=== PATIENT | female | born 1945 | race Caucasian/White ===

== ENCOUNTER → 2017-03-15 | Outpatient (CLI) | payer OTHER ==
[~2017-03-15] MED LIST: AMIT25TA19 PO; AMT25 PO; ATV5 PO; CLID5CAP23 PO; CLON1TAB3 PO; CMD5 PO; COLE1TAB PO; ERGO50002 PO; FRRS300 PEG; FURO-85 PO; HYDR25TA4 PO; IMD2X PO; KLOR CON PO; LEVO100T84 PO; LEVO112T4 PO; LISI40TA PO; LORA-741 PO; LSX20 PO; OXYC1TAB3 PO; PANT40TA PO; POTA10CA28 PO; PRAM1TAB52 PO; PROM25TA PO; PROM25TA16 PO; TRIA0.1C55 TOP; WARF5TAB7 PO
--- NOTE | 2017-03-16 08:28 | MAMMOGRAPHY REPORT ---
BILATERAL DIGITAL SCREENING MAMMOGRAM WITH CAD: 03/15/2017 CLINICAL HISTORY: Routine screening. Patient has no complaints. TECHNIQUE: Bilateral CC and MLO views were obtained. Current study was also evaluated with a Comput er Aided Detection (CAD) system. COMPARISON: Comparison is made to exams dated: 03/11/2016 mammogram, 03/10/2015 mammogram, 03/08/2014 mammogram, 03/07/2013 mammogram, 03/06/2012 mammogram, and 03/03/2011 mammogram - [facility]. BREAST COMPOSITION: The tissue of both breasts is almost entirely fatty. FINDINGS: There are scattered benign-appearing calcifications in the breasts. No suspicious mass, a rchitectural distortion or cluster of suspicious microcalcifications is seen. IMPRESSION: ACR BI-RADS CATEGORY 1: NEGATIVE There is no mammographic evidence of malignancy. A 1 year screening mammogram is recommended. The p atient will receive written notification of the results. Approximately 10% of breast cancers are not detected with mammography. A negative mammographic repor t should not delay biopsy if a clinically suggestive mass is present. Faith Landry M.D. ay/:03/15/2017 16:01:55 Supervisor Travel Trailer: [place]en GUY(Erich)(Raquel), [facility] letter sent: Normal 1/2 BI-RADS Code: ACR BI-RADS Category 1: Negative
== END | disposition home or self-care (01) ==
LOC: C.MAMM 10:57
PROVIDERS: ATTEND Family Medicine
DX: Z12.31 Encounter for screening mammogram for malignant neoplasm of breast (principal)

== ENCOUNTER 2017-06-13 10:27 | Emergency (ER) | payer OTHER ==
[~2017-06-13] VITALS: Ht 152.4 cm; Wt 96.6 kg
[~2017-06-13 10:27] MED LIST changes: -AMT25 PO; -CMD5 PO; -FRRS300 PEG; -FURO-85 PO; -LEVO112T4 PO; -LORA-741 PO; -LSX20 PO; -POTA10CA28 PO; -PRAM1TAB52 PO; -PROM25TA16 PO
[2017-06-13 10:32] VITALS: TEMP 36.4; Ht 152.4 cm; Wt 96.6 kg
[2017-06-13] MEDS ORDERED: PRAM1TAB52 PO (11:02)
[2017-06-13] MEDS ORDERED: LORA-741 PO (11:02)
[2017-06-13] MEDS ORDERED: AMT25 PO (11:02)
[2017-06-13] MEDS ORDERED: LSX20 PO (11:02)
[2017-06-13] MEDS ORDERED: LEVO112T4 PO (11:02)
[2017-06-13] MEDS ORDERED: FURO-85 PO (11:02)
[2017-06-13] MEDS ORDERED: PROM25TA16 PO (11:02)
[2017-06-13] MEDS ORDERED: POTA10CA28 PO (11:02)
[2017-06-13 11:08] LABS: ISTAT CREATININE 1.2 mg/dl (0.6-1.3); ISTAT HEMOGLOBIN 8.5 g/dl (12.0-16.0); ISTAT IONIZED CALCIUM 1.25 mmol/l (1.12-1.32)
[2017-06-13 11:32] LABS: CALCIUM 8.6 mg/dl (8.5-10.1); CREATININE 1.3 mg/dl (0.60-1.20); POTASSIUM 5.2 mmol/L (3.5-5.1)
[2017-06-13 11:35] LABS: ALB/GLOB RATIO 0.9 (0.9-2)
[2017-06-13 11:46] LABS: HEMATOCRIT 25.5 % (37-47); MEAN CELL VOLUME 70.2 fL (80-100); MEAN CORPUSCULAR HEMOGLOBIN 20.7 pg (25-34); MEAN CORPUSCULAR HGB CONC 29.4 g/dl (32-36); MEAN PLATELET VOLUME 10.2 fL (7.4-10.4); PLATELET COUNT 265 K/uL (130-400); RED BLOOD COUNT 3.63 M/uL (4.2-5.4)
[2017-06-13 11:48] LABS: ANISOCYTOSIS PRESENT; COMPLETE YES; EOS % 1.5 %; HYPOCHROMIA PRESENT; LYMPH % 18.3 %; LYMPH ABS # 0.99 K/uL (1.2-3.4); MONO % 7.8 %; NEUT % 72.4 %
[2017-06-13] MEDS ORDERED: CMD5 PO (12:14)
[2017-06-13] MEDS ORDERED: FRRS300 PEG (13:39)
[2017-06-13 13:49] VITALS: BP 116/84; PULSE 77; O2SAT 96
--- NOTE | 2017-06-13 14:44 | EMERGENCY ROOM VISIT NOTE ---
History Report prepared by James: Felicitas Huerta Under the Supervision of: Dr. Junior Lewis D.O. First contact with patient: 11:22 Chief Complaint: ABNORMAL LABS Stated Complaint: BLOOD TRANSFUSION History of Present Illness The patient is a 72 year old female who presents to the Emergency Room for further evaluation of abnormal lab results. The patient had blood drawn 5 days ago and her hemoglobin was found to be 7.3. The patient states that her PCP, Dr. Puckett, called her and told her to come into the ED for a blood transfusion. The patient has not noticed any bleeding and she denies being anemic chronically. The patient's daughter states that the patient has been on iron supplements in the past and she thinks that she might need them again. She is also experiencing headaches, shortness of breath, and fatigue. The patient states that she saw her PCP for these symptoms, specifically the headache because it has been ongoing for almost 3 weeks now. Source of History: patient, family (daughter) Onset: 5 days ago Position: other (global) Quality: other (abnormal lab results) Associated Symptoms: + headache, + SOB, + fatigue Review of Systems See HPI for pertinent positives & negatives. A total of 10 systems reviewed and were otherwise negative. Past Medical & Surgical Medical Problems: (1) CKD (chronic kidney disease), stage III (2) Depression (3) HTN (hypertension) (4) Hypothyroidism (5) IBS (irritable bowel syndrome) (6) Pulmonary embolism (7) Rotator cuff tear arthropathy of right shoulder Surgical Problems: (1) History of bilateral knee replacement (2) History of hysterectomy (3) History of spinal fusion (4) S/P cardiac cath (5) S/P cholecystectomy (6) S/P left knee arthroscopy Family History Patient reports no known family medical history. Social History Smoking Status: Never Smoker Marital Status: Occupation Status: employed Current/Historical Medications Scheduled Amitriptyline HCl (Amitriptyline HCl), 25 MG PO HS Chlordiazepoxide/Clidinium (Librax 5MG/2.5MG), 1 EA PO QID Clonazepam (Klonopin), 1 MG PO HS Colestipol Hcl (Colestid), 2 GM PO BID Ergocalciferol (Drisdol), 1 CAP PO WK Ferrous Sulfate (Ferrous Sulfate), 1 TAB PEG TID Furosemide (Furosemide), 40 MG PO QAM Furosemide (Lasix), 20 MG PO DAILY Levothyroxine Sodium (Levothyroxine Sodium), 112 MCG PO DAILY Lisinopril (Zestril), 40 MG PO QAM Loperamide Hcl (Imodium), 2 MG PO PRN Oxycodone Ir (Roxicodone Ir), 5 MG PO Q4H Pantoprazole (Protonix), 40 MG PO BID Potassium Chloride (Micro-K Ext Rel), 10 MEQ PO BID Pramipexole Dihydrochloride (Mirapex), 0.25 MG PO HS Warfarin Sod (Jantoven), 5 MG PO 3XWK Warfarin Sod (Coumadin), 2.5 MG PO 4XWK Scheduled PRN Lorazepam (Ativan), 0.5 MG PO TID PRN for Anxiety Promethazine HCl (Promethazine HCl), 25 MG PO Q4H PRN for Nausea Allergies Coded Allergies: No Known Allergies (Verified , 04/02/16) Physical Exam Vital Signs Date Time Temp Pulse Resp B/P (MAP) Pulse Ox O2 Delivery O2 Flow Rate FiO2 06/13/17 13:49 77 18 116/84 96 06/13/17 12:11 74 18 113/76 96 Room Air 06/13/17 11:01 82 06/13/17 10:32 36.4 86 18 138/75 91 Room Air Physical Exam CONSTITUTIONAL/VITAL SIGNS: Reviewed / noted above. GENERAL: Non-toxic in appearance. INTEGUMENTARY: Warm, dry, and slightly pale in appearance. HEAD: Normocephalic. EYES: without scleral icterus or trauma. ENT/OROPHARYNX: clear and moist. LYMPHADENOPATHY/NECK: Is supple without lymphadenopathy or meningismus. RESPIRATORY: Lungs clear and equal. CARDIOVASCULAR: Regular rate and rhythm. GI/ABDOMEN: Soft and nontender. No organomegaly or pulsatile mass. No rebound or guarding. Normal bowel sounds. RECTAL: Light brown stool. GUAIAC negative EXTREMITIES: Warm and well perfused. BACK: No CVA tenderness. NEUROLOGICAL: Intact without focal deficits. PSYCHIATRIC: normal affect. MUSCULOSKELETAL: Normally developed with good muscle tone. Medical Decision & Procedures Laboratory Results 06/13/17 10:50 Red Blood Count 3.63, Mean Corpuscular Volume 70.2, Mean Corpuscular Hemoglobin 20.7, Mean Corpuscular Hemoglobin Concent 29.4, Mean Platelet Volume 10.2, Neutrophils (%) (Auto) 72.4, Lymphocytes (%) (Auto) 18.3, Monocytes (%) (Auto) 7.8, Eosinophils (%) (Auto) 1.5, Basophils (%) (Auto) 0.0, Neutrophils # (Auto) 3.91, Lymphocytes # (Auto) 0.99, Monocytes # (Auto) 0.42, Eosinophils # (Auto) 0.08, Basophils # (Auto) 0.00 06/13/17 10:50 Test 06/13/17 10:50 06/13/17 10:57 06/13/17 11:05 White Blood Count 5.40 K/uL (4.8-10.8) Red Blood Count 3.63 M/uL (4.2-5.4) Hemoglobin 7.5 g/dL (12.0-16.0) Hematocrit 25.5 % (37-47) Mean Corpuscular Volume 70.2 fL (80-100) Mean Corpuscular Hemoglobin 20.7 pg (25-34) Mean Corpuscular Hemoglobin Concent 29.4 g/dl (32-36) Platelet Count 265 K/uL (130-400) Mean Platelet Volume 10.2 fL (7.4-10.4) Neutrophils (%) (Auto) 72.4 % Lymphocytes (%) (Auto) 18.3 % Monocytes (%) (Auto) 7.8 % Eosinophils (%) (Auto) 1.5 % Basophils (%) (Auto) 0.0 % Neutrophils # (Auto) 3.91 K/uL (1.4-6.5) Lymphocytes # (Auto) 0.99 K/uL (1.2-3.4) Monocytes # (Auto) 0.42 K/uL (0.11-0.59) Eosinophils # (Auto) 0.08 K/uL (0-0.5) Basophils # (Auto) 0.00 K/uL (0-0.2) RDW Standard Deviation 46.8 fL (36.4-46.3) RDW Coefficient of Variation 18.0 % (11.5-14.5) Immature Granulocyte % (Auto) 0.0 % Immature Granulocyte # (Auto) 0.00 K/uL (0.00-0.02) Hypochromasia PRESENT Anisocytosis PRESENT Est Creatinine Clear Calc Drug Dose 39.5 ml/min Estimated GFR () 46.8 Estimated GFR (Non- 40.4 BUN/Creatinine Ratio 30.0 (10-20) Calcium Level 8.6 mg/dl (8.5-10.1) Total Bilirubin 0.2 mg/dl (0.2-1) Aspartate Amino Transf (AST/SGOT) 19 U/L (15-37) Alanine Aminotransferase (ALT/SGPT) 15 U/L (12-78) Alkaline Phosphatase 241 U/L (45-117) Total Protein 7.2 gm/dl (6.4-8.2) Albumin 3.4 gm/dl (3.4-5.0) Globulin 3.8 gm/dl (2.5-4.0) Albumin/Globulin Ratio 0.9 (0.9-2) Lipase 359 U/L (73-393) Bedside Hemoglobin 8.5 g/dl (12.0-16.0) Bedside Hematocrit 25 % (37-47) Bedside Sodium 139 mEq/L (135-144) Bedside Potassium 5.1 mEq/L (3.3-5.0) Bedside Chloride 107 mEq/L (101-112) Bedside Total CO2 22 mEq/l (24-31) Anion Gap 16.0 mmol/L (16-25) Bedside Blood Urea Nitrogen 39 mg/dl (7-18) Bedside Creatinine 1.2 mg/dl (0.6-1.3) Bedside Glucose (other) 98 mg/dl (70-99) Bedside Ionized Calcium (Silvano) 1.25 mmol/l (1.12-1.32) Laboratory results as stated above per my review. ED Course 1137: Previous medical records were reviewed. The patient was evaluated in room C3. A complete history and physical examination was performed. 1200: Discussed the patient's case with Dr. Lua - [facility], she is covering for Dr. Puckett. She informed me that the patient was told to come in last week to get a blood transfusion but she waited until today. She agrees with the treatment plan. 1339: On reevaluation, the patient is doing well. I discussed the results and findings with the patient. She verbalized agreement of the treatment plan. She was discharged home. Medical Decision Differentials include: Acute coronary syndrome, myocardial infarction, CVA, TIA , anemia, infection, pneumonia, UTI, pyelonephritis, poor nutrition, dehydration , electrolyte disturbance, and hypoglycemia. This is a 72-year-old female who presents to the ED with a chief complaint of anemia. The patient had some outpatient blood work about 1-1/2 weeks ago that revealed anemia with a hemoglobin of 7.4. The patient was contacted today and decided to come to the ED for evaluation. The patient went there for a headache and needed some routine blood work. The patient denies any concerns for blood loss anywhere. She has not had any black or tarry stools. Her vital signs here are stable. Her physical exam was unremarkable. She looks a little pale. Stool is light brown and guaiac negative. The patient's hemoglobin today is 8.5. Her potassium was 5.2 and her BUN 39 and creatinine 1.3. The patient was told results the test. I did speak with Dr. Bravo, she is on- call for Dr. Puckett. The patient will be started on by mouth iron. She was felt to be stable for discharge and outpatient follow-up. Medication Reconcilliation Current Medication List: was personally reviewed by me Blood Pressure Screening Patient's blood pressure: Normal blood pressure Consults Time Called: 1143 Consulting Physician: Dr. Lua - Family Medicine Returned Call: 1200 Discussed the patient's case with Dr. Lua - [facility], she is covering for Dr. Puckett. She informed me that the patient was told to come in last week to get a blood transfusion but she waited until today. She agrees with the treatment plan. Impression Primary Impression: Anemia Additional Impression: Dehydration Scribe Attestation The scribe's documentation has been prepared under my direction and personally reviewed by me in its entirety. I confirm that the note above accurately reflects all work, treatment, procedures, and medical decision making performed by me. Departure Information Dispostion Home / Self-Care Prescriptions Ferrous Sulfate (Ferrous Sulfate) 325 Mg Tab 1 TAB PEG TID for 30 Days, #90 TABS Prov: Junior Lewis D.O. 06/13/17 Referrals Tristan Conde M.D. (PCP) Forms HOME CARE DOCUMENTATION FORM, IMPORTANT VISIT INFORMATION, WORK / SCHOOL INSTRUCTIONS Patient Instructions ED Anemia Iron Deficiency, [facility] Additional Instructions Iron supplement as prescribed. This may cause constipation. This will turn your stool black. Follow-up with your doctor for further care and evaluation in 1-2 days. Return to the emergency department for worsening or new symptoms or any concerns. You have been examined and treated today on an emergency basis only. This is not a substitute for, or an effort to provide, complete comprehensive medical care. It is impossible to recognize and treat all injuries or illnesses in a single emergency department visit. It is therefore important that you follow up closely with your doctor. Call as soon as possible for an appointment. Problem Qualifiers
== END 2017-06-13 13:50 | disposition home or self-care (01) ==
LOC: C.EDB 10:28 → C.EDC 13:50
DX: D64.9 Anemia, unspecified (principal); E86.0 Dehydration; N18.3 Chronic kidney disease, stage 3 (moderate); F32.9 Major depressive disorder, single episode, unspecified; I10 Essential (primary) hypertension; K58.9 Irritable bowel syndrome, unspecified; E03.9 Hypothyroidism, unspecified; I26.99 Other pulmonary embolism without acute cor pulmonale; Z79.01 Long term (current) use of anticoagulants

== ENCOUNTER 2018-01-31 11:27 | Observation (INO) | payer OTHER ==
[2018-01-09 14:55] VITALS: BMI 43.0
--- NOTE | 2018-01-09 15:06 | PAT Medication Instructions ---
Service Date Jan 09, 2018. Current Home Medication List Amitriptyline HCl (Amitriptyline HCl), 25 MG PO HS Amlodipine (Norvasc), 10 MG PO QAM Clonazepam (Klonopin), 1 MG PO HS Colestipol Hcl (Colestid), 2 GM PO BID Ergocalciferol (Drisdol), 1 CAP PO WK Ferrous Sulfate (Kp Ferrous Sulfate), 1 TAB PO BID Furosemide (Furosemide), 40 MG PO QAM Furosemide (Lasix), 20 MG PO daily 1615 Levothyroxine Sodium (Levothyroxine Sodium), 112 MCG PO QAM Lisinopril (Zestril), 40 MG PO QAM Loperamide Hcl (Imodium), 2 MG PO PRN Lorazepam (Ativan), 0.5 MG PO TID PRN for Anxiety Oxycodone Ir (Roxicodone Ir), 5 MG PO Q4H Pantoprazole (Protonix), 40 MG PO BID Potassium Chloride (Micro-K Ext Rel), 10 MEQ PO BID Pramipexole Dihydrochloride (Mirapex), 0.25 MG PO HS Promethazine HCl (Promethazine HCl), 25 MG PO Q4H PRN for Nausea Warfarin Sod (Coumadin), 5 MG PO UD Medication Instructions For Your Scheduled Surgery - Check with surgeon and prescribing physician for instructions: Warfarin Sod (Coumadin), 5 MG PO UD - Hold the following medications the night prior to surgery: Pramipexole Dihydrochloride (Mirapex), 0.25 MG PO HS - Hold the following medications the morning of surgery: Colestipol Hcl (Colestid), 2 GM PO BID Ergocalciferol (Drisdol), 1 CAP PO WK Ferrous Sulfate (Kp Ferrous Sulfate), 1 TAB PO BID Furosemide (Furosemide), 40 MG PO QAM Lisinopril (Zestril), 40 MG PO QAM Loperamide Hcl (Imodium), 2 MG PO PRN Potassium Chloride (Micro-K Ext Rel), 10 MEQ PO BID - Take the following medications the morning of surgery with a sip of water: Promethazine HCl (Promethazine HCl), 25 MG PO Q4H PRN for Nausea (if needed) Pantoprazole (Protonix), 40 MG PO BID Lorazepam (Ativan), 0.5 MG PO TID PRN for Anxiety (if needed) Oxycodone Ir (Roxicodone Ir), 5 MG PO Q4H (okay to take up to 4 hours prior to surgery if needed) Levothyroxine Sodium (Levothyroxine Sodium), 112 MCG PO QAM Amlodipine (Norvasc), 10 MG PO QAM - Take the following medications as scheduled the night before surgery: Promethazine HCl (Promethazine HCl), 25 MG PO Q4H PRN for Nausea (if needed) Potassium Chloride (Micro-K Ext Rel), 10 MEQ PO BID Pantoprazole (Protonix), 40 MG PO BID Lorazepam (Ativan), 0.5 MG PO TID PRN for Anxiety (if needed) Oxycodone Ir (Roxicodone Ir), 5 MG PO Q4H (if needed) Loperamide Hcl (Imodium), 2 MG PO PRN (if needed) Furosemide (Lasix), 20 MG PO daily 1615 Ferrous Sulfate (Kp Ferrous Sulfate), 1 TAB PO BID Colestipol Hcl (Colestid), 2 GM PO BID Clonazepam (Klonopin), 1 MG PO HS Amitriptyline HCl (Amitriptyline HCl), 25 MG PO HS If you have any questions please call us at [phone] or [phone] or [phone]
--- NOTE | 2018-01-09 16:29 | DIAGNOSTIC IMAGING REPORT ---
CHEST 2 VIEWS ROUTINE CLINICAL HISTORY: Preoperative chest COMPARISON STUDY: 03/25/2016 FINDINGS: The cardiac and mediastinal contours are normal. There is no evidence of focal pulmonary consolidation. There is no evidence of failure. No pleural effusions are visualized.[ There are postsurgical changes of a right shoulder arthroplasty. There are postsurgical changes present within the lumbar spine. There are lower thoracic compression deformities with a secondary gibbus deformity. IMPRESSION: No active disease in the chest. Electronically signed by: Slim Rodrigues M.D. 01/09/2018 4:28 PM Dictated Date/Time: 01/09/2018 4:27 PM
[2018-01-09 16:40] LABS: INR 1.8 (0.9-1.1); PTT PATIENT 30.5 SECONDS (21.0-31.0)
--- NOTE | 2018-01-30 22:09 | HISTORY & PHYSICAL EXAMINATION ---
DATE OF ADMISSION: 01/31/2018 CHIEF COMPLAINT: Rotator cuff arthropathy of the left shoulder. HISTORY OF PRESENT ILLNESS: Asuncion is a very pleasant 72-year-old female who I did a reverse right shoulder arthroplasty 2 years ago. She has done extremely well with that. Unfortunately, she is having similar symptoms of her left shoulder. X-rays and clinical examination have been diagnostic for rotator cuff arthropathy of left shoulder. After failing extensive conservative treatment, she has elected to proceed with a reverse left shoulder arthroplasty. PAST MEDICAL HISTORY: Significant for hypertension, pulmonary embolism, sleep apnea for which she is on a CPAP machine, anxiety, osteoarthritis, GERD. MEDICATIONS: Include oxycodone, vitamin D, Phenergan, Protonix, Ativan, Coumadin, Klonopin, Librax, Klor-Con, amitriptyline, amlodipine, colestipol, hydrochlorothiazide, Synthroid, lisinopril, Imodium. ALLERGIES: None. PAST SURGICAL HISTORY: Significant for a right reverse shoulder arthroplasty done in March of 2016. SOCIAL HISTORY: She denies any tobacco, alcohol or IV drug use. She remains active. FAMILY HISTORY: She denies. REVIEW OF SYSTEMS: She complains of left shoulder pain and weakness. All other pertinent review of systems are negative. PHYSICAL EXAMINATION: GENERAL: She is awake, alert and orient x3. She is in no apparent distress. She is very pleasant. HEENT: Pupils equal, round, reactive to light. Extraocular motion intact. Oral mucosa is pink, moist. HEART: Regular rate per radial pulse. LUNGS: Emily symmetrically bilaterally with no audible breath sounds. ABDOMEN: Soft, nontender, nondistended. MUSCULOSKELETAL: On physical examination of the left shoulder. She has 130 degrees forward elevation, 120 degrees of abduction. She does have crepitus with range of motion. She has 3/5 muscle strength with full can testing mostly secondary to pain. She has 4/5 muscle strength with external rotation. Negative bear hug and belly press test. A lot of pain over the glenohumeral joint line. IMAGING DATA: X-rays of the left shoulder do show advanced osteoarthritis. There was a little bit of superior migration of the humeral head in the glenoid. IMPRESSION: Rotator cuff arthropathy of the left shoulder. PLAN: We will proceed with a reverse left total shoulder arthroplasty. Postoperatively, she will be placed in an arm sling and kept overnight for postoperative medical management.
[~2018-01-31] VITALS: Ht 152.4 cm; Wt 101.2 kg
[2018-01-31] VITALS (8 sets, daily range): BP systolic 94–140; BP diastolic 61–74; PULSE 79–98; TEMP 36.4–37.3; O2SAT 91–99; Ht 152.4 cm; Wt 101.2 kg
[2018-01-31] MEDS: LACTATED RINGER'S 1000ML IV SCH ×2 (06:00→18:34)
[2018-01-31] MEDS: TRANEXAMIC ACID INJ 1,000 MG x 2 Bags IV SCH ×4 (06:30→14:16)
[~2018-01-31 11:27] MED LIST changes: +ACETAMINOPHEN 500 MG TAB PO SCH; -AMIT25TA19 PO; +AMLO-114 PO; +AMT25 PO; -ATV5 PO; +BUPIVACAINE 0.5 % 5 MG/1 ML PF 10ML VIAL ONE; +CEFAZOLIN 2000MG IV PUSH 15 ML IV SCH; -CLID5CAP23 PO; +CMD5 PO; +EpINEphrine INJ 1MG/ML AMP 1 MG/ML AMP ONE; +FAMOTIDINE 20 MG TAB PO SCH; +FERR1TAB13 PO; +FURO-85 PO; +GABAPENTIN 300 MG CAP PO SCH; -HYDR25TA4 PO; -KLOR CON PO; -LEVO100T84 PO; +LEVO112T4 PO; +LORA-741 PO; +LSX20 PO; +POTA10CA28 PO; +PRAM1TAB52 PO; -PROM25TA PO; +PROM25TA16 PO; +ROPIVACAINE 0.5% 5 MG/ML 30 ML VIAL ONE; +ROPIVACAINE 5MG/ML 30 ML 150 MG, BUPIVACAINE 0.5% MPF INJ 30 ML, EpINEphrine HCL INJ 0.... INFIL SCH; -TRIA0.1C55 TOP; -WARF5TAB7 PO
--- NOTE | 2018-01-31 11:29 | History & Physical Bridge Note ---
H&P Re-Evaluation Bridge Note: I have examined the patient, reviewed the History & Physical and in the interval since the performance of the History & Physical I have noted the following changes of clinical significance: No changes noted
[2018-01-31] MEDS ORDERED: CYAN100073 (12:19)
[2018-01-31] MEDS ORDERED: CHOLCAP2 PO (12:20)
[2018-01-31 12:21] LABS: INR 0.9 (0.9-1.1); PTT PATIENT 23.8 SECONDS (21.0-31.0)
[2018-01-31] MEDS: LACTATED RINGER'S 1000ML 1,000 ML IV SCH ×3 (12:56→18:34)
[2018-01-31] MEDS ORDERED: DEXAMETHASONE SOD INJ 4 MG/ML VIAL ONE (13:37)
[2018-01-31] MEDS ORDERED: FENTANYL CITRATE INJ 50 MCG/1 ML 2 ML VIAL ONE ×2 (13:37→15:18)
[2018-01-31] MEDS ORDERED: PROPOFOL IV EMULSION 10 MG/ML 20 ML VIAL IV ONE (13:37)
[2018-01-31] MEDS ORDERED: MIDAZOLAM HCL 1 MG/ML 2ML VIAL ONE ×2 (13:37)
[2018-01-31] MEDS ORDERED: ONDANSETRON INJ 2 MG/ML 2 ML VIAL ONE (13:37)
[2018-01-31] MEDS ORDERED: LIDOCAINE HCL 2% 2 ML VIAL (20MG/ML) ONE (13:37)
[2018-01-31] MEDS ORDERED: BACITRACIN 50000 UNIT VIAL ONE (14:29)
[2018-01-31] MEDS ORDERED: ORTHO JOINT ANESTHETIC ONE (14:29)
[2018-01-31] MEDS ORDERED: ESMOLOL HCL 10 MG/ML 10 ML VIAL ONE (15:06)
--- NOTE | 2018-01-31 16:08 | [facility] Post Operative Brief Note ---
Immediate Operative Summary Operative Date Jan 31, 2018. Pre-Operative Diagnosis Rotator cuff arthropathy of the left shoulder Post-Operative Diagnosis Rotator cuff arthropathy of the left shoulder Procedure(s) Performed Left Reverse Total Shoulder Surgeon Dr. Kelly Crusher [employer] Surgeon(s) Danilo Floyd PA-C Estimated Blood Loss 200 ML Findings Consistent with Post-Op Diagnosis Specimens a. Left Femoral Head Anesthesia Type General Regional Complication(s) none Disposition Disposition: Recovery Room / PACU
[2018-01-31] MEDS ORDERED: PROMETHAZINE HCL 25 MG TAB PO PRN (16:15)
[2018-01-31] MEDS ORDERED: SOD PHOSPHATE/SOD BIPHOSPHATE ENEMA 132 ML BTL PR PRN (16:15)
[2018-01-31] MEDS ORDERED: METOCLOPRAMIDE HCL INJ 5 MG/ML 2 ML VIAL IV PRN (16:15)
[2018-01-31] MEDS ORDERED: LORAZEPAM 0.5 MG TAB PO PRN (16:15)
[2018-01-31] MEDS ORDERED: NALOXONE HCL 0.4 MG/1 ML VIAL/CARP IV PRN (16:15)
[2018-01-31] MEDS ORDERED: MoRPHine SULFATE 2 MG/ML CARP IV PRN (16:15)
[2018-01-31] MEDS ORDERED: MAGNESIUM HYDROXIDE SUSP 30 ML UDC PO PRN (16:15)
[2018-01-31] MEDS ORDERED: ONDANSETRON INJ 2 MG/ML 2 ML VIAL IV PRN (16:15)
[2018-01-31] MEDS ORDERED: BISACODYL 10 MG SUPP PR PRN (16:15)
--- NOTE | 2018-01-31 16:31 | OPERATIVE REPORT ---
DATE OF OPERATION: 01/31/2018 PREOPERATIVE DIAGNOSIS: Rotator cuff arthropathy of the left shoulder. POSTOPERATIVE DIAGNOSIS: Same. PROCEDURE: Left reverse total shoulder arthroplasty. SURGEON: Dr. Bob Kelly. SUPERVISOR GROUNDS: Danilo Taylor PA-C, whose assistance was necessary for retraction and closure. ANESTHESIA: General with a left interscalene nerve block. COMPLICATIONS: None. CONDITION: Stable to PACU. IMPLANTS USED: Biomet comprehensive reverse left shoulder arthroplasty system with a size 25 mm mini baseplate, a 36 mm standard eccentric glenosphere, a single 30 mm central screw, 2 peripheral locking screws, a size 14 mm mini pressfit stem and a standard humeral tray and bearing. INDICATIONS: Asuncion is a pleasant 72-year-old female with a history of rotator cuff repair in the past. Unfortunately, she has had constant pain since. She has gone on to develop advanced osteoarthritis of the shoulder. She has limited range of motion of her shoulder as well. After failing conservative treatment, she elected to undergo reverse shoulder arthroplasty. DESCRIPTION OF PROCEDURE: On 01/31/2018, she arrived at [facility] for the above procedure. She was seen in the preoperative holding and the operative extremity was identified and signed. She was given a preoperative antibiotic and a left interscalene nerve block. She was taken back to the operating room, laid on the table in supine position and put under general anesthesia. She then put into the beachchair position. The left shoulder was prepped and draped in sterile fashion. Time-out was done. The patient's operative extremity was properly identified. A deltopectoral approach was used. Dissection was taken down through the fascia and the anterior shoulder was exposed. The long head of the biceps tendon was previously tenotomized. The rotator interval was opened up and the subscapularis was tenotomized off the lesser tuberosity with a centimeter of cuff tissue remaining. There was a tear of the entire supraspinatus. The proximal humerus was exposed. Sequential reaming up to a size 14 reamer was done. Off that reamer, a proximal humeral resection guide was placed and the proximal humerus was resected at 135 degrees of inclination and 20 degrees of retroversion. The head was removed and the glenoid was exposed. Time was spent doing a complete circumferential capsular and labral release. A guide pin was placed in the more inferior portion of the glenoid angled at 10 degrees. The 25 mm mini baseplate was then drilled and the final baseplate was impacted into place. A 30 mm central screw was placed followed by an inferior and superior locking screw. A 36 mm standard eccentric glenosphere was then impacted into place. The surrounding soft tissues were injected with 100 mL of an orthopedic pain control cocktail. The proximal humerus was once again exposed. Sequential broaching up to a size 14 broach was done. Off that broach, a standard humeral tray was trialed. The shoulder was reduced, brought through a full range of motion and felt to be stable. The trials were removed. The final size 14 mm mini stem was then impacted into place. The humeral bearing was snapped onto the humeral tray and the ring lock mechanism was engaged. The humeral tray was impacted on the humeral stem and the shoulder was reduced. I brought the shoulder through a full range of motion and felt to be stable. The wound was then irrigated with 3 liters of normal saline solution with bacitracin. The subscapularis was then tenodesed back to the lesser tuberosity with transosseous FiberWire sutures and [id number] sutures. The axillary nerve was palpated. A drain was placed. Skin was closed with 2-0 Vicryl, 3-0 V-Loc suture and jeniffer. She was placed in a soft dressing and a regular arm sling. She was then extubated, transferred to a [facility] and taken to the postanesthesia care unit in stable condition. She tolerated the procedure well. I attest to the content of the Intraoperative Record and any orders documented therein. Any exception s are noted below.
[2018-01-31] MEDS ORDERED: IV FLUIDS COMPLETED PRN (16:45)
--- NOTE | 2018-01-31 17:31 | Anesthesiology Progress Note ---
Anesthesia Post Op Note Date & Time Jan 31, 2018 at 17:30 Vital Signs Pain Intensity: 0 Vital Signs Past 12 Hours Date Time Temp Pulse Resp B/P (MAP) Pulse Ox O2 Delivery O2 Flow Rate FiO2 01/31/18 17:15 36.2 85 18 121/79 100 Nasal Cannula 2 01/31/18 17:05 84 22 115/79 100 Nasal Cannula 2 01/31/18 16:55 88 20 135/84 100 Nasal Cannula 2 01/31/18 16:45 86 15 140/100 100 Oxymask 10 01/31/18 16:35 88 13 149/100 100 Oxymask 10 01/31/18 16:29 36.4 86 16 146/88 98 Oxymask 10 01/31/18 12:21 36.7 98 20 140/74 99 Room Air Notes Mental Status: alert / awake / arousable, participated in evaluation Pt Amnestic to Procedure: Yes Nausea / Vomiting: adequately controlled Pain: adequately controlled Airway Patency, RR, SpO2: stable & adequate BP & HR: stable & adequate Hydration State: stable & adequate Anesthetic Complications: no major complications apparent
--- NOTE | 2018-01-31 17:40 | DIAGNOSTIC IMAGING REPORT ---
L SHOULDER MIN 2 VIEWS ROUTINE CLINICAL HISTORY: Post shoulder surgery COMPARISON: 12/19/2017 DISCUSSION: There are postsurgical changes of a reversed total left shoulder arthroplasty. There are overlying skin jeniffer. There is an overlying surgical drain. Air within the soft tissues is felt to be postsurgical. There is no dislocation. There are equivocal airspace opacities at the left lung base. IMPRESSION: Postsurgical changes of a reverse total left shoulder arthroplasty. No evidence of dislocation Electronically signed by: Slim Rodrigues M.D. 01/31/2018 5:39 PM Dictated Date/Time: 01/31/2018 5:38 PM
[2018-01-31] MEDS: POTASSIUM CHLORIDE INJ 10 MEQ in SODIUM CHLORIDE 0.9% 1000ML 1,000 ML IV SCH (19:45)
[2018-01-31] MEDS ORDERED: LOPERAMIDE HCL 2 MG CAP PO PRN (19:45)
[2018-01-31] MEDS: OXYCODONE HCL IR 5 MG TAB (IMMEDIATE RELEASE) PO PRN (19:46)
[2018-01-31] MEDS: DOCUSATE SODIUM 100 MG CAP PO SCH (20:30)
[2018-01-31] MEDS: WARFARIN SOD 5 MG TAB PO SCH (20:36)
[2018-01-31] MEDS: POTASSIUM CHLORIDE 10 MEQ TABCR PO SCH (20:36)
[2018-01-31] MEDS: KETOROLAC TROMETHAMINE 15 MG/ML VIAL IV. SCH (20:36)
[2018-01-31] MEDS: PANTOprazole SOD 40 MG TAB PO SCH (20:37)
[2018-01-31] MEDS ORDERED: SENNA 8.6 MG TAB PO SCH (21:00)
[2018-01-31] MEDS ORDERED: AMITRIPTYLINE HCL 25 MG TAB PO SCH (21:00)
[2018-01-31] MEDS ORDERED: CLONAZEPAM 1 MG TAB PO SCH (21:00)
[2018-01-31] MEDS ORDERED: PRAMIPEXOLE DIHYDROCHLORIDE 0.25MG TAB PO SCH (21:00)
[2018-01-31] MEDS: COLESTIPOL HCL 1 GM TAB PO SCH (22:15)
[2018-01-31] MEDS: CEFAZOLIN IV 2,000 MG in SYRINGE 0 ML IV SCH (22:17)
[2018-01-31] MEDS: ACETAMINOPHEN IV 1,000 MG in EMPTY BAG 0 ML IV SCH (22:19)
[2018-02-01] MEDS: KETOROLAC TROMETHAMINE 15 MG/ML VIAL IV. SCH ×3 (01:36→11:17)
[2018-02-01 04:05] VITALS: BP 104/65; PULSE 81; TEMP 36.5; O2SAT 92
[2018-02-01] MEDS: ACETAMINOPHEN IV 1,000 MG in EMPTY BAG 0 ML IV SCH ×2 (05:33→13:25)
[2018-02-01] MEDS: CEFAZOLIN IV 2,000 MG in SYRINGE 0 ML IV SCH (05:33)
[2018-02-01] MEDS ORDERED: LEVOTHYROXINE 112 MCG TAB PO SCH (06:00)
[2018-02-01] MEDS: POTASSIUM CHLORIDE INJ 10 MEQ in SODIUM CHLORIDE 0.9% 1000ML 1,000 ML IV SCH (06:32)
[2018-02-01] MEDS ORDERED: OXYC1TAB3 PO (07:05)
--- NOTE | 2018-02-01 07:07 | Discharge Instructions ---
Discharge Instructions Date of Service Feb 01, 2018. Admission Reason for Admission: Left Shoulder Rotator Cuff Tear, Degenerative Join Discharge Discharge Diagnosis / Problem: Left Reverse Total Shoulder Discharge Goals Goal(s): Decrease discomfort, Improve function Activity Recommendations Activity Limitations: as noted below . Instructions / Follow-Up Instructions / Follow-Up Activity and Therapy Recommendations: * Wear your sling for 3 weeks, unless otherwise instructed. You may remove your sling to shower and to dress, but otherwise, you should be in your sling at all times, including while sleeping * The shoulder replacement is very stable and you can use your hand while in the sling * Physical Therapy should start about 3-5 days from your day of surgery. Therapy will last about 8-12 weeks * You were shown a series of exercises in the hospital. Do these exercises daily including the exercises you were shown in physical therapy. Medications: * Narcotic You will likely be sent home from the hospital with a prescription for the narcotic pain medication that worked best throughout your stay. * Other medications may be prescribed for specific circumstances. If you have any questions, please call the office at . * Resume previous home medications unless otherwise instructed Showering: You may shower 5 days from the day of surgery. Let the soapy shower water run over the jeniffer. Do not scrub or soak the incision. Things To Watch For: * Drainage from the incision site that occurs more than one week after your surgery. * Increased redness at the incision site. * Fever above 102 degrees Fahrenheit. * Unusual chest pain or shortness of breath. * Call [facility] at with any of the above problems Follow-Up Visit: Follow-up with Dr. Kelly 2 weeks after your day of surgery. An appointment was probably scheduled when you signed-up for surgery in the office. If you have any questions call Office Instructions: More detailed instructions as well as Frequently Asked Questions were provided in a folder by our office when you signed-up for surgery. Please review these instructions when you get home. If you have any further questions or concerns, please feel free to call the office at [phone] Current Hospital Diet Patient's current hospital diet: Regular Diet Discharge Diet Recommended Diet: Regular Diet Procedures Procedures Performed: Left Reverse Total Shoulder Pending Studies Studies pending at discharge: no Medical Emergencies . Who to Call and When: Medical Emergencies: If at any time you feel your situation is an emergency, please call 911 immediately. . Non-Emergent Contact Non-Emergency issues call your: Surgeon Call Non-Emergent contact if: wound has increased drainage, wound has increased redness . "Provider Documentation" section prepared by Bob Kelly. .
[2018-02-01 07:13] LABS: HEMATOCRIT 26.6 % (37-47); HEMOGLOBIN 8.7 g/dL (12.0-16.0); MEAN CELL VOLUME 94.7 fL (80-100); MEAN CORPUSCULAR HGB CONC 32.7 g/dl (32-36); MEAN PLATELET VOLUME 10.9 fL (7.4-10.4); PLATELET COUNT 168 K/uL (130-400); RED CELL DISTRIBUTION WIDTH CV 15.9 % (11.5-14.5); RED CELL DISTRIBUTION WIDTH SD 55.2 fL (36.4-46.3); WHITE BLOOD COUNT 5.72 K/uL (4.8-10.8)
--- NOTE | 2018-02-01 07:25 | PROGRESS NOTE ---
DATE: 02/01/2018 CHIEF COMPLAINT: Status post reverse left shoulder arthroplasty postop day #1. PROGRESS: Asuncion was seen and examined at bedside today. Overall, she is doing very well. She has very little pain in the shoulder. She was able to get some sleep last night. She has no complaints. PHYSICAL EXAMINATION: LEFT ARM: The dressing is clean and dry and the drain is to suction. She is wearing her sling as instructed. Her radial, median and ulnar nerves are checked and intact at her wrist. Her axillary nerve is not checked yet. Lab work is still pending. Vital signs are all stable on room air. She is voiding on her own. X-rays postoperatively of the left shoulder show the prosthesis to be in anatomic alignment without any evidence of fracture, dislocation or loosening. IMPRESSION: Status post reverse left shoulder arthroplasty postop day #1. PLAN: At this point, she is doing well. She will be seen by physical therapy today to do hand, wrist, elbow and pendulum exercises. The nursing staff can change the dressing, pull the drain and discharge her to home later this morning.
[2018-02-01 07:45] VITALS: BP 108/64; PULSE 78; TEMP 36.4; O2SAT 94
[2018-02-01 07:47] LABS: CREATININE 1.2 mg/dl (0.60-1.20)
[2018-02-01 07:48] LABS: CALCIUM 8.2 mg/dl (8.5-10.1)
--- NOTE | 2018-02-01 08:02 | DISCHARGE SUMMARY ---
DISCHARGE DIAGNOSIS: Rotator cuff arthropathy of the left shoulder. PROCEDURE: Left reverse shoulder arthroplasty on 01/31/[address] Bob Kelly. DISCHARGE INSTRUCTIONS: 1. Oxycodone 5 mg as needed for pain. 2. Amitriptyline 25 mg at night. 3. Norvasc 10 mg daily. 4. Vitamin D 50,000 units weekly. 5. Klonopin 1 mg at night. 6. Colestid 2 grams twice a day. 7. B12 1000 mcg daily. 8. Drisdol 50,000 units weekly. 9. Iron 325 mg twice a day. 10. Lasix 40 mg daily. 11. Synthroid 112 mcg daily. 12. Zestril 40 mg daily. 13. Imodium 2 mg as needed. 14. Ativan 0.5 mg 3 times a day as needed. 15. Protonix 40 mg twice a day. 16. Potassium 10 mEq twice a day. 17. Mirapex 0.25 mg at night. 18. Promethazine 25 mg every 4 hours as needed. 19. Coumadin 5 mg daily. 20. Left arm sling for 3 weeks. 21. Follow up with Dr. Kelly in 2 weeks. 22. Call the office of Dr. Kelly with any questions or concerns. HOSPITAL COURSE: Asuncion is a pleasant 72-year-old female who has a history of previous left rotator cuff repair. Unfortunately, the cuff went onto failure. She presented to my office with chronic left shoulder pain. X-rays and clinical examination were diagnostic for cuff arthropathy of the left shoulder. After failing conservative treatment, she elected to undergo reverse left shoulder arthroplasty. On 01/31/2018, she arrived at [facility] and underwent reverse left shoulder arthroplasty without complications. She had general anesthetic and left interscalene nerve block. Postoperatively, she was placed in a sling and transferred to the general orthopedic floors. Overall, her hospital course was uneventful. On postop day #1, she was doing very well. She was able to get up and ambulate with physical therapy and do hand, wrist, elbow and pendulum exercises. The nursing staff changed her dressing and pulled the drain, and she was subsequently discharged to home with the above instructions.
[2018-02-01] MEDS ORDERED: FERROUS SULFATE 325 MG TAB PO SCH (08:30)
[2018-02-01] MEDS: DOCUSATE SODIUM 100 MG CAP PO SCH (08:38)
[2018-02-01] MEDS: COLESTIPOL HCL 1 GM TAB PO SCH (08:39)
[2018-02-01] MEDS: POTASSIUM CHLORIDE 10 MEQ TABCR PO SCH (08:39)
[2018-02-01] MEDS: PANTOprazole SOD 40 MG TAB PO SCH (08:41)
[2018-02-01] MEDS ORDERED: FUROSEMIDE 40 MG TAB PO SCH (09:00)
[2018-02-01] MEDS ORDERED: AMLODIPINE BESYLATE 5 MG TAB PO SCH (09:00)
[2018-02-01] MEDS ORDERED: LISINOPRIL 40 MG TAB PO SCH (09:00)
[2018-02-01] MEDS ORDERED: MULTIVITAMIN TAB PO SCH (09:00)
[2018-02-01 09:30] VITALS: O2SAT 94
[2018-02-01] MEDS: OXYCODONE HCL IR 5 MG TAB (IMMEDIATE RELEASE) PO PRN ×2 (10:02→16:17)
--- NOTE | 2018-02-01 10:48 | Anesthesiology Progress Note ---
Anesthesia Post Op Note Date & Time Feb 01, 2018 at 10:48 Vital Signs Pain Intensity: 8.0 Vital Signs Past 12 Hours Date Time Temp Pulse Resp B/P (MAP) Pulse Ox O2 Delivery O2 Flow Rate FiO2 02/01/18 09:30 94 Room Air 02/01/18 09:13 36.4 78 14 94 Room Air 02/01/18 08:11 Room Air 02/01/18 07:45 36.4 78 14 108/64 (79) 94 Room Air 02/01/18 04:05 36.5 81 18 104/65 (78) 92 Room Air 01/31/18 23:50 91 Room Air 2.0 01/31/18 23:18 36.5 86 18 123/69 (87) 91 Room Air Notes Mental Status: alert / awake / arousable, participated in evaluation Pt Amnestic to Procedure: Yes Nausea / Vomiting: adequately controlled Pain: improving with treatment Airway Patency, RR, SpO2: stable & adequate BP & HR: stable & adequate Hydration State: stable & adequate Anesthetic Complications: no major complications apparent
[2018-02-01 12:02] VITALS: BP 120/78; PULSE 88; TEMP 36.5; O2SAT 96
[2018-02-01] MEDS ORDERED: NURSING VERBAL MED ORDER ONE (14:45)
[2018-02-01 15:05] VITALS: BP 156/79; PULSE 94; TEMP 36.7; O2SAT 96
[2018-02-01] MEDS: WARFARIN SOD 5 MG TAB PO SCH (16:04)
[2018-02-01] MEDS ORDERED: FUROSEMIDE 20 MG TAB PO SCH (16:15)
[2018-02-06] MEDS ORDERED: WARFARIN SOD 2.5 MG TAB PO SCH (16:00)
== END 2018-02-01 17:35 ==
LOC: C.ACU 11:27 → C.3E 16:14 → ENRESERV 17:39
PROVIDERS: ADMIT Orthopaedic Surgery; ATTEND Orthopaedic Surgery
DX: M12.811 Other specific arthropathies, not elsewhere classified, right shoulder (principal); I10 Essential (primary) hypertension; G47.30 Sleep apnea, unspecified; F41.9 Anxiety disorder, unspecified; M19.90 Unspecified osteoarthritis, unspecified site; K21.9 Gastro-esophageal reflux disease without esophagitis; Z79.01 Long term (current) use of anticoagulants; Z79.899 Other long term (current) drug therapy

== ENCOUNTER 2021-03-17 15:58 | Inpatient (IN) ==
[2021-03-17] MEDS ORDERED: diazePAM 5 MG TABLET PO ONE (18:23)
[2021-03-17] MEDS: HYDROmorphone INJ 1 MG/ML SYRINGE IV PRN ×2 (18:47→22:20)
--- NOTE | 2021-03-17 19:57 | Hospitalist Consultation ---
Date of Consultation March 17, 2021 History of Present Illness Reason for Consultation: Medical management Requesting Physician: Dr. Kelly Attending Physician: Bob Kelly, DO History of Present Illness This patient is a 76-year-old female Allergies Allergy/AdvReac Type Severity Reaction Status Date / Time No Known Allergies Allergy Verified 09/03/20 13:48 Home Medications Medication Instructions Recorded Confirmed Type amitriptyline 25 mg tablet 25 mg PO DAILY #90 tab 07/03/19 12/12/20 Rx carvedilol 6.25 mg tablet 6.25 mg PO DAILY #90 tab 07/03/19 12/12/20 Rx cholecalciferol (vitamin D3) 1,250 50,000 units PO WEEKLY #14 cap 07/03/19 12/12/20 Rx mcg (50,000 unit) capsule clonazepam 1 mg tablet 1 mg PO HS PRN #30 tab 07/03/19 09/03/20 Rx colestipol 1 gram tablet 2 gm PO DAILY #180 tab 07/03/19 12/12/20 Rx cyanocobalamin (vitamin B-12) 1,000 mcg PO DAILY #30 cap 07/03/19 12/12/20 Rx 1,000 mcg capsule docusate sodium 100 mg capsule 100 mg PO BID #60 cap 07/03/19 12/12/20 Rx ferrous sulfate 325 mg (65 mg 325 mg PO BID #60 tab 07/03/19 12/12/20 Rx iron) tablet furosemide 20 mg tablet See Rx Instructions PO BID #360 tab 07/03/19 12/12/20 Rx levothyroxine 112 mcg capsule 112 mcg PO DAILY #90 cap 07/03/19 12/12/20 Rx lisinopril 40 mg tablet 40 mg PO DAILY #90 tab 07/03/19 12/12/20 Rx lorazepam 0.5 mg tablet 0.5 mg PO TID PRN #90 tab 07/03/19 12/12/20 Rx oxycodone 5 mg tablet 5 mg PO Q4H PRN #60 tab 07/03/19 12/12/20 Rx pantoprazole 40 mg tablet,delayed 40 mg PO BID #180 tab 07/03/19 12/12/20 Rx release potassium chloride 10 mEq 10 meq PO BID #180 tab 07/03/19 12/12/20 Rx tablet,extended release pramipexole 0.25 mg tablet 0.25 mg PO QPM #90 tab 07/03/19 12/12/20 Rx promethazine 25 mg tablet 25 mg PO Q6H PRN #30 tab 07/03/19 12/12/20 Rx warfarin 5 mg tablet 5 mg PO DAILY #90 tab 07/03/19 12/12/20 Rx Patient History Medical History (Updated 03/17/21 @ 17:30 by Bob Kelly DO) Anemia CKD (chronic kidney disease), stage III HTN (hypertension) Vitamin D deficiency Social History Smoking Status: Never smoker Hx Alcohol Use: No Preferred Language: Amharic Communication Ability: Effective Tax Services Specialist Required: No Beliefs That Will Affect Care: None Current Living Situation: Alone Other Information That Helps Us Care for You: No Feels Safe at Home: Yes Safety Concerns: Feels Safe At This Time Assistive Devices: Glasses and Walker Results & Data Results & Data ([facility]) Vital Signs (Past 12 Hours) Vital Signs Temp Pulse Pulse Resp BP Pulse Ox 03/17/21 18:11 37.0 C 87 14 127/76 95 03/17/21 17:50 37.0 C 86 14 127/76 95 PG Care Time/CCT Total # of Minutes Spent Total Time Spent with Patient: Total time spent is greater than 50% in coordination of care (as documented) at patient's floor/unit and/or counseling patient: Coding
[2021-03-17] MEDS ORDERED: PROMETHAZINE HCL 25 MG TAB PO PRN (21:32)
[2021-03-17] MEDS ORDERED: clonazePAM 1 MG TAB PO PRN (21:32)
[2021-03-17] MEDS: ONDANSETRON INJ 2 MG/ML 2 ML VIAL IV PRN (23:23)
[2021-03-18] MEDS ORDERED: Nursing to Pharmacy Communication SCH (01:15)
[2021-03-18] MEDS: LORazepam 0.5 MG TAB PO PRN (01:38)
--- NOTE | 2021-03-18 03:07 | Consultation Report ---
DATE OF CONSULTATION: 03/17/2021 CHIEF COMPLAINT: Left hip pain and back pain. HISTORY OF PRESENT ILLNESS: This is a 76-year-old female with past medical history significant for hypothyroidism, history of obstructive sleep apnea, but could not tolerate CPAP, history of hypertension, obesity, irritable bowel syndrome, chronic diarrhea, rectocele, urge incontinence, cystocele, prolapse of vaginal vault after hysterectomy, chronic kidney disease stage III, osteoporosis, osteoarthrosis, restless leg syndrome, migraines, iron deficiency anemia, depression, history of lymphedema, history of pulmonary embolism, who lives alone, ambulates with a walker. Presents with back pain and left hip pain. She had a left hip steroid shot in December, the pain improved for 10 days, but then again the pain got worse. Since February, pain got worse. She can ambulate with a walker, but pain is not getting better. She saw orthopedics today and she got admitted to the hospital for further workup. She just had an MRI scan of the hip. Currently resting comfortably. Except for back pain and hip pain, denies any other complaints. She has chronic diarrhea and she has urge incontinence. She uses pads. She lives alone. Son lives in [place], but she has family in [place]. Denies any chest pain, no shortness of breath, no cough. She has chronic migraines. No blurred vision, no earache, no runny nose, no sore throat, no cough, no dysphagia. Appetite is good. Today at MRI, she had an episode of vomiting, but currently she is doing okay. No abdominal pain. She has chronic swelling in the legs. She takes Lasix. She has completed COVID vaccine. ALLERGIES: No known drug allergies. PAST MEDICAL HISTORY: As mentioned above. PAST SURGICAL HISTORY: Left total knee arthroplasty, right total knee arthroplasty, left heart catheterization, colonoscopy with biopsy, cataract surgery, cholecystectomy, total hysterectomy. MEDICATIONS: Currently taking amitriptyline 25 mg p.o. daily, Coreg 6.25 mg p.o. daily, vitamin D 50,000 units p.o. weekly, Klonopin 1 mg p.o. at bedtime p.r.n., colestipol 2 grams p.o. b.i.d., vitamin B12 1000 mcg p.o. daily, Colace 100 mg p.o. b.i.d., ferrous sulfate 325 mg p.o. b.i.d., Lasix 20 mg p.o. b.i.d., levothyroxine 112 mcg p.o. daily, lisinopril 40 mg p.o. daily, Ativan 0.5 mg p.o. t.i.d. p.r.n., oxycodone 5 mg p.o. q. 4 hours p.r.n., Protonix 40 mg p.o. b.i.d., potassium chloride 10 mEq p.o. b.i.d., pramipexole 0.5 mg p.o. at bedtime and pramipexole 0.25 mg p.o. daily p.r.n., promethazine 25 mg p.o. q. 6 hours p.r.n., warfarin 5 mg p.o. daily. FAMILY HISTORY: Significant for mother has arthritis and hypertension; father has asthma; sister has breast cancer; son has obesity. SOCIAL HISTORY: , lives alone currently. No smoking, no alcohol, no drug use. REVIEW OF SYSTEMS: As per HPI. Rest of the review of systems negative. PHYSICAL EXAMINATION: GENERAL: The patient is morbidly obese, not in acute distress. VITAL SIGNS: Temperature 37.1, pulse 82, respiratory rate 18, blood pressure 146/85, oxygen 92% on room air. HEENT: Head atraumatic. No facial droop seen. NECK: No JVD, no neck masses seen. CARDIOVASCULAR: S1, S2 heard, regular rate and rhythm, no murmur, no gallop. RESPIRATORY SYSTEM: Normal AP diameter. No accessory muscle use. No wheezing, no crackles. ABDOMEN: Soft, bowel sounds present, nontender, nondistended. CENTRAL NERVOUS SYSTEM: Cranial nerves II-XII grossly intact, nonfocal. EXTREMITIES: Bilateral lower extremity edema present. MUSCULOSKELETAL: Bilateral straight leg test positive. ASSESSMENT AND PLAN: This is a 76-year-old female who presents with ongoing back pain and left hip pain. 1. Ongoing back pain and left hip pain, going on for few months now: Hip MRI is done, await the results. Further workup with orthopedics. Pain control for now. 2. History of sleep apnea and history of obesity: tried Cpap but was not tolerating it. It is causing headaches, so she is not using it. 3. History of hypothyroidism: Continue Synthroid. 4. History of hypertension: Continue Coreg, lisinopril. Will monitor the blood pressure. 5. History of irritable bowel syndrome, chronic diarrhea: Continue her colestipol. 6. Chronic kidney disease stage III: Baseline creatinine 0.8-1.0 We will follow the labs. 7. Restless legs syndrome: Continue her home medications. 8. Migraine: Continue her home pain medications. 9. Iron deficiency anemia: On iron supplements. 10. History of anxiety and depression: On amitriptyline and Ativan p.r.n. 11. Chronic lower extremity lymphedema: On Lasix, takes 40 mg daily and sometimes 3 times a week she takes 60 mg. Will continue with 20 mg lasix b.i.d. and if needed will give extra lasix. 12. History of pulmonary embolism diagnosed about 5 years ago: Significant for father and mother had blood clots. Currently holding tonight Coumadin for any procedures. Follow PT/INR in the a.m. If INR is subtherapeutic, we will start on IV heparin if any procedures planned. If no procedures, will continue the Coumadin. 13. Deep venous thrombosis prophylaxis: On Coumadin. Follow the INR. 14. Disposition: As per orthopedics. MTDD
[2021-03-18] MEDS: HYDROmorphone HCL 2 MG TAB PO PRN ×5 (04:06→23:11)
[2021-03-18] MEDS: LIDOCAINE 5% 1 PATCH TD SCH (04:37)
[2021-03-18 05:42] LABS: Eosinophils # (auto) 0.08 K/uL (0-0.5); Eosinophils % (auto) 1.6 %; Hematocrit (blood only) 31.1 % (37-47); Immature Granulocytes # (auto) 0.01 K/uL (0.00-0.02); Immature Granulocytes % (auto) 0.2 %; Lymphocytes # (auto) 1.11 K/uL (1.2-3.4); Lymphocytes % (auto) 22.3 %; Mean Corpuscular Hemoglobin 27.6 pg (25-34); Mean Corpuscular Hgb Conc 32.2 g/dL (32-36); Mean Corpuscular Volume 85.9 fL (80-100); Mean Platelet Volume 11.8 fL (7.4-10.4); Monocytes # (auto) 0.49 K/uL (0.11-0.59); Monocytes % (auto) 9.9 %; Neutrophils # (auto) 3.28 K/uL (1.4-6.5); Platelet Count 173 K/uL (130-400); RDW Coefficient of Variation 14.6 % (11.5-14.5); RDW Standard Deviation 46.2 fL (36.4-46.3); Red Blood Count 3.62 M/uL (4.2-5.4); White Blood Count 4.97 K/uL (4.8-10.8)
[2021-03-18 05:56] LABS: INR 1.5 (0.9-1.1)
[2021-03-18 06:19] LABS: BUN Creatinine Ratio 25.4 (10-20); Calcium 8.5 mg/dl (8.5-10.1); Est GFR (Non-African American) 63.8; Magnesium 2.2 mg/dl (1.8-2.4); Potassium 4.5 mmol/L (3.5-5.1)
[2021-03-18] MEDS: LEVOTHYROXINE SODIUM 112 MCG TABLET PO SCH (06:25)
--- NOTE | 2021-03-18 07:07 | Orthopedic Progress Note ---
Date of Service March 18, 2021 Assessment & Plan (1) Left hip pain: I am still unsure if this is coming more from her hip or her back. She has mild arthritis of her left hip on my read of the MRI, but I am waiting for the radiology read as well. I do not think this is enough arthritis to cause the amount of pain that she is having. She says the pain radiates from her back around to her groin. The pain radiates even when she is not moving or using her hip. She has had multiple lumbar surgeries, the latest was by Dr. Tan. I have consulted his team to take a look at Asuncion today as well. I am going to send her for x-rays of her lumbar spine. The last x-rays were from 2019. I also talked to her about her weight gain today. I have known Asuncion for a long time. 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 Since the pharmacy has closed she has lived alone and has gained about 65 pounds. She is also dealing with a lot of swelling in her legs. We will wait to see what the radiology read is of the left hip. I am also waiting to see Dr. Tan's recommendations. I will likely also consult pain management if necessary. Asuncion understands the goal of this admission is not necessarily to provide definitive treatment but to get some studies together and come up with a definitive plan that we can execute after discharge. She is also interested in talking to Dr. Oshea about some weight loss in the future. Subjective Asuncion was seen and examined at bedside this morning. Her pain is a little bit better today. She was taking the Dilaudid pain medication throughout the night. She still has pain that radiates from her back around to her left groin. She says it originates in her back and radiates around. She has sharp pains even when she does not move her hip. She had the MRI of her hip last night. She is already been seen by the hospitalist. She has no new complaints.. Review of Systems All systems reviewed & are unremarkable except as noted in HPI & below. Physical Exam On physical examination of the left hip, I can flex her to about 90 degrees w ithout much pain. I can get about 30 degrees of external rotation with moderate pain in her back. She has about 20 degrees of internal rotation. She does have increased pain with forced internal rotation. The pain is in her groin and her back with forced internal rotation.. Results & Data Results & Data Laboratory Results . Diagnostic Findings The MRI of her left hip was reviewed by myself personally. The radiology report is not ready yet. On my review of the MRI she has some mild osteoarthritis of the left hip. There is little bit of greater trochanteric bursitis. I do not see any significant signs of avascular necrosis, joint effusions, or occult fractures PG Care Time/CCT Total # of Minutes Spent Total Time Spent with Patient: Total time spent is greater than 50% in coordination of care (as documented) at patient's floor/unit and/or counseling patient: Coding Level of Care Code 52700 Subseq Hosp Care Lvl 2 Diagnoses Left hip pain M25.552
[2021-03-18] MEDS: AMITRIPTYLINE HCL 25 MG TAB PO SCH (08:00)
[2021-03-18] MEDS: COLESTIPOL HCL 1 GM TAB PO SCH (08:02)
[2021-03-18] MEDS: FERROUS SULFATE 325 MG TAB PO SCH ×2 (08:02→20:27)
[2021-03-18] MEDS: lisinopril 40 MG TAB PO SCH (08:02)
[2021-03-18] MEDS: CYANOCOBALAMIN 500 MCG TABLET (VITAMIN B-12) PO SCH (08:02)
[2021-03-18] MEDS: DOCUSATE SODIUM 100 MG CAP PO SCH ×2 (08:02→20:26)
[2021-03-18] MEDS: POTASSIUM CHLORIDE 10 MEQ TABCR PO SCH ×2 (08:03→20:27)
[2021-03-18] MEDS: PANTOprazole 40 MG TAB PO SCH ×2 (08:03→20:27)
--- NOTE | 2021-03-18 08:44 | Magnetic Resonance Report ---
MRI OF THE LEFT HIP WITHOUT IV CONTRAST CLINICAL HISTORY: Left hip pain. COMPARISON STUDY: Pelvic CT dated 08/29/2011. TECHNIQUE: MRI of the left hip and bony pelvis is performed utilizing various T1 and T2-weighted sequ ences in the axial, sagittal, and coronal planes. IV contrast was not administered for this examinati on. Note that interpretation is suboptimal without current plain film correlate. FINDINGS: Fatty marrow change is noted throughout the pelvis. There is no MRI evidence of fracture in volving the hips or visualized bony pelvis. There is no evidence of osteonecrosis of the femoral head s. Osteoarthritic change is seen in the hips, left greater than right. There is mild marrow edema wit hin the posterior aspect of the left femoral head. There is no hip joint effusion. Extensive lumbosac ral fusion hardware is in place. Signal abnormality identified in the sacrum bilaterally is likely re lated to susceptibility artifact from metallic hardware. There is evidence of trochanteric bursitis o n the left. There is generalized fatty atrophy of the regional musculature. No pelvic sidewall or ing uinal adenopathy is identified. The bladder is normal as imaged. The uterus is surgically absent. No free fluid is seen in the pelvis. IMPRESSION: 1. No acute bony abnormality is identified. 2. There is evidence of trochanteric bursitis on the left. 3. There is osteoarthritic change noted in the left hip with mild marrow edema of the femoral head. Dictated: 03/18/2021 8:00 AM Transcribed: 03/18/2021 8:38 AM Glenna [id number] [email or web address] Electronically signed by: Mir Lorenzo M.D. 03/18/2021 8:43 AM
[2021-03-18] MEDS ORDERED: FUROSEMIDE 20 MG TAB PO SCH (09:00)
[2021-03-18] MEDS: carvediloL 6.25 MG TAB PO SCH (09:16)
[2021-03-18] MEDS ORDERED: LORazepam 0.5 MG/1 ML VIAL IV ONE ×2 (10:09→10:15)
--- NOTE | 2021-03-18 10:12 | Hospitalist Progress Note ---
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 Stein, please see addendum Thank you for this consultation. We will follow the patient with you during their hospital stay. You can reach a member of the [facility] Hospitalist Team 06/06 via hospitalist role on tiger text. Admission and Anticipated Discharge Date Admission Date: March 17, 2021 Supervising Physician Co-Signing Physician Notes I have seen and examined the patient and have discussed the case with the provider above. I agree with the assessment and plan as stated. 76 yo F with acute on chronic lower back pain. She is still able to ambulate with a walker to and from the bathroom in her room. Pain is now 8/10 and worse with movement onto/off of MRI. Pain radiations from L lower back around to left hip. Upcoming MRI L-spine and she is requesting premedication with Lorazepam. Advised her against use of benzo and oxycodone or other narcotics simultaneously for risk of adverse medication reaction. She verbalized understanding. She is able to sit up on the side of the bed independently with little assistance. She has full strength and no neurologic deficits in her lower extremities. She has a positive left SLR test with radiculopathy down the posterior left thigh with leg flexion. Otherwise she has exquisite TTP in the left PSIS area moving onto the left glute. Not much TTP over the GTB, however. She has good functional status and is without symptoms of chest pain, shortness of breath or other concerning issues that would require further pre-operative workup if procedure was needed. Echo was ordered for reported LE swelling. Will follow results. She remains on a heparin bridge pending procedure. Will hold warfarin for now. Thank you for this consultation. Will continue to follow her throughout her hospitalization. DO Donya Stein Patient was seen and examined in room 312. Follow up L buttock pain and hx of DVT. Currently she c/o pain 8/10 starting L buttock and radiates to inguinal region. Worsens with movement. She has noticed increased pain for the past 2 weeks. She has steroid injection by pain management in November which helped initially, ~ 10 days; however pain gradually worsened. She has been admitted under orthopedic Dr. Kelly and Dr. Tna spinal surgeon is on board as well. She is to undergo lumbar MRI today and is requesting lorazepam prior to testing due to claustrophobia. She denies f/c/s, dizziness, lightheaded, chest pain, sob, n/v/d. She did have nausea and vomiting x 2 yesterday. She has chronic black stool due to iron tablets and occasional pepto bismal use. Review of Systems Review of Systems: All systems reviewed & are unremarkable except as noted in HPI & below Physical Exam Physical Exam: Gen: WD/WN, F, NAD, A&O x3 HEENT: Normocephalic, atraumatic, conjunctivae moist, sclerae anicteric, mucous membranes moist. Lung: Clear to Auscultation bilaterally, no wheezes/rales/rhonchi Heart: Regular rate, regular rhythm, no murmurs, rubs, or gallops Abdomen: Soft, NT, ND +BS x 4 Extremities: b/l lower ext obese, no tory edema, mild venous stasis changes to pretibal RLE MSK: no pain to palpation to L lateral trochanter region, + pain to palpation L SI region, no vertebral tenderness Skin: Warm, no rash, negative turgor. Results & Data Results & Data ([facility]) Vital Signs (Past 12 Hours) Vital Signs Temp Pulse Resp BP Pulse Ox 03/18/21 07:07 36.9 C 78 18 113/70 97 Diagnostic Findings Hip MRI 03/17/21 17:22 MRI OF THE LEFT HIP WITHOUT IV CONTRAST CLINICAL HISTORY: Left hip pain. COMPARISON STUDY: Pelvic CT dated 08/29/2011. TECHNIQUE: MRI of the left hip and bony pelvis is performed utilizing various T1 and T2-weighted sequences in the axial, sagittal, and coronal planes. IV contrast was not administered for this examination. Note that interpretation is suboptimal without current plain film correlate. FINDINGS: Fatty marrow change is noted throughout the pelvis. There is no MRI evidence of fracture involving the hips or visualized bony pelvis. There is no evidence of osteonecrosis of the femoral heads. Osteoarthritic change is seen in the hips, left greater than right. There is mild marrow edema within the posterior aspect of the left femoral head. There is no hip joint effusion. Extensive lumbosacral fusion hardware is in place. Signal abnormality identified in the sacrum bilaterally is likely related to susceptibility artifact from metallic hardware. There is evidence of trochanteric bursitis on the left. There is generalized fatty atrophy of the regional musculature. No pelvic sidewall or inguinal adenopathy is identified. The bladder is normal as imaged. The uterus is surgically absent. No free fluid is seen in the pelvis. IMPRESSION: 1. No acute bony abnormality is identified. 2. There is evidence of trochanteric bursitis on the left. 3. There is osteoarthritic change noted in the left hip with mild marrow edema of the femoral head. Dictated: 03/18/2021 8:00 AM Transcribed: 03/18/2021 8:38 AM Glenna [id number] [email or web address] Electronically signed by: Mir Lorenzo M.D. 03/18/2021 8:43 AM Medications Administered Amitriptyline HCl (Amitriptyline Hcl 25 Mg Tab) 25 mg PO DAILY [facility] Stop: 04/17/21 08:59 Last Admin: 03/18/21 08:00 Dose: 25 mg Documented by: [id number] Carvedilol (Carvedilol 6.25 Mg Tab) 6.25 mg PO DAILY [facility] Stop: 04/17/21 08:59 Last Admin: 03/18/21 09:16 Dose: 6.25 mg Documented by: [id number] Colestipol HCl (Colestipol Hcl 1 Gm Tab) 2 gm PO DAILY [facility] Stop: 04/17/21 08:59 Last Admin: 03/18/21 08:02 Dose: 2 gm Documented by: [id number] Cyanocobalamin (Cyanocobalamin 500 Mcg Tablet (Vitamin B-12)) 1,000 mcg PO DAILY [facility] Stop: 04/17/21 08:59 Last Admin: 03/18/21 08:02 Dose: 1,000 mcg Documented by: [id number] Docusate Sodium (Docusate Sodium 100 Mg Cap) 100 mg PO BID [facility] Stop: 04/17/21 08:59 Last Admin: 03/18/21 08:02 Dose: 100 mg Documented by: [id number] Ferrous Sulfate (Ferrous Sulfate 325 Mg Tab) 325 mg PO BID [facility] Stop: 04/17/21 08:59 Last Admin: 03/18/21 08:02 Dose: 325 mg Documented by: [id number] Hydromorphone HCl (Hydromorphone Hcl 2 Mg Tab) 2 mg PO Q3H PRN PRN Reason: Pain Stop: 03/31/21 17:18 Last Admin: 03/18/21 07:46 Dose: 2 mg Documented by: [id number] Admin: 03/18/21 04:06 Dose: 2 mg Documented by: [id number] Levothyroxine Sodium (Levothyroxine Sodium 112 Mcg Tablet) 112 mcg PO DAILYBB [facility] Stop: 04/17/21 06:29 Last Admin: 03/18/21 06:25 Dose: 112 mcg Documented by: [id number] Lidocaine (Lidocaine 5% 1 Patch) 1 patch TD DAILY [facility] Stop: 04/17/21 04:29 Last Admin: 03/18/21 04:37 Dose: 1 patch Documented by: [id number] Lisinopril (Lisinopril 40 Mg Tab) 40 mg PO DAILY [facility] Stop: 04/17/21 08:59 Last Admin: 03/18/21 08:02 Dose: 40 mg Documented by: [id number] Lorazepam (Lorazepam 0.5 Mg Tab) 0.5 mg PO TID PRN PRN Reason: anxiety Stop: 04/16/21 21:31 Last Admin: 03/18/21 01:38 Dose: 0.5 mg Documented by: [id number] Ondansetron HCl (Ondansetron Inj 2 Mg/Ml 2 Ml Vial) 4 mg IV Q6H PRN PRN Reason: Nausea/Vomiting Stop: 04/16/21 17:12 Last Admin: 03/17/21 23:23 Dose: 4 mg Documented by: [id number] Pantoprazole Sodium (Pantoprazole 40 Mg Tab) 40 mg PO BID [facility] Stop: 04/17/21 08:59 Last Admin: 03/18/21 08:03 Dose: 40 mg Documented by: [id number] Potassium Chloride (Potassium Chloride 10 Meq Tabcr) 10 meq PO BID [facility] Stop: 04/17/21 08:59 Last Admin: 03/18/21 08:03 Dose: 10 meq Documented by: [id number] Discontinued Medications Diazepam (Diazepam 5 Mg Tablet) 5 mg PO NOW ONE Stop: 03/17/21 18:24 Last Admin: 03/17/21 20:24 Dose: 5 mg Documented by: [id number] Hydromorphone HCl (Hydromorphone Inj 1 Mg/Ml Syringe) 1 mg IV Q1H PRN PRN Reason: Pain Stop: 03/31/21 17:18 Last Admin: 03/17/21 22:20 Dose: 1 mg Documented by: [id number] Admin: 03/17/21 18:47 Dose: 1 mg Documented by: [id number] Miscellaneous (Vitamin D - 50,0000 Units - Order Awaiting Action) 1 ea N/A QS [facility] Stop: 04/17/21 00:00 Last Admin: 03/18/21 01:13 Dose: Not Given Documented by: [id number] COVID-19 Results Results COVID-19 Adm Lab Results: RBC 3.62 M/uL (4.2-5.4) L 03/18/21 WBC 4.97 K/uL (4.8-10.8) 03/18/21 Hgb 10.0 g/dL (12.0-16.0) L 03/18/21 Hct 31.1 % (37-47) L 03/18/21 Plt Count 173 K/uL (130-400) 03/18/21 Neutrophils (%) (Auto) 66.0 % 03/18/21 Lymphocytes (%) (Auto) 22.3 % 03/18/21 Monocytes # (Auto) 0.49 K/uL (0.11-0.59) 03/18/21 Eosinophils # (Auto) 0.08 K/uL (0-0.5) 03/18/21 Immature Granulocyte % (Auto) 0.2 % 03/18/21 Neutrophils # (Auto) 3.28 K/uL (1.4-6.5) 03/18/21 Lymphocytes # (Auto) 1.11 K/uL (1.2-3.4) L 03/18/21 Monocytes # (Auto) 0.49 K/uL (0.11-0.59) 03/18/21 Eosinophils # (Auto) 0.08 K/uL (0-0.5) 03/18/21 Basophils # (Auto) 0.00 K/uL (0-0.2) 03/18/21 Immature Granulocyte # (Auto) 0.01 K/uL (0.00-0.02) 03/18/21 Na 139 mmol/L (136-145) 03/18/21 K 4.5 mmol/L (3.5-5.1) 03/18/21 Cl 108 mmol/L (98-107) H 03/18/21 CO2 29 mmol/L (21-32) 03/18/21 Anion Gap 2.0 (3-11) L 03/18/21 BUN 22 mg/dl (7-18) H 03/18/21 Creatinine 0.87 mg/dl (0.6-1.2) 03/18/21 BUN/Creatinine Ratio 25.4 (10-20) H 03/18/21 Glucose Level 110 mg/dl (70-99) H 03/18/21 Ca 8.5 mg/dl (8.5-10.1) 03/18/21 PTT 28.6 Seconds (21.0-31.0) 03/18/21 INR 1.5 (0.9-1.1) H 03/18/21
[2021-03-18] MEDS ORDERED: HYDROmorphone INJ 1 MG/ML SYRINGE IV PRN (10:15)
--- NOTE | 2021-03-18 10:44 | XRay Report ---
XR lumbar spine 2-3V CLINICAL HISTORY: back pain COMPARISON STUDY: No previous studies for comparison. FINDINGS: There are postsurgical changes of an L2-S1 spinal decompression and fusion with discectomie s interbody fusions at the L2-3, L4-5, and L5-S1 levels. There are moderately advanced degenerative c hanges at the thoracolumbar junction. There is lucency surrounding the L2 and S1 pedicle screws, susp icious for hardware loosening. IMPRESSION: 1. Postsurgical changes of a prior spinal decompression and fusion 2. No acute fractures 2. Moderately advanced degenerative changes the thoracolumbar junction 4. Lucency surrounding the L2 and S1 pedicle screws, suspicious for hardware loosening ACT 112: Negative or not required by law. Electronically signed by: Slim Rodrigues M.D. 03/18/2021 10:43 AM
[2021-03-18] MEDS: ONDANSETRON INJ 2 MG/ML 2 ML VIAL IV PRN ×2 (10:52→16:46)
--- NOTE | 2021-03-18 11:39 | Electrocardiogram Report ---
Test Reason : Blood Pressure : / mmHG Vent. Rate : 079 BPM Atrial Rate : 079 BPM P-R Int : 200 ms QRS Dur : 140 ms QT Int : 422 ms P-R-T Axes : 034 026 015 degrees QTc Int : 483 ms Normal sinus rhythm Right bundle branch block Abnormal ECG When compared with ECG of 09-JAN-2018 15:58, Nonspecific T wave abnormality no longer evident in Lateral leads Confirmed by Aneesh Reed ([id number]) on 03/18/2021 11:39:27 AM Referred By: Bob Kelly Confirmed By:Aneesh Reed
[2021-03-18] MEDS: ACETAMINOPHEN 325 MG TAB PO SCH ×3 (12:01→20:26)
[2021-03-18] MEDS: FUROSEMIDE 20 MG TAB PO SCH ×2 (12:01→17:17)
[2021-03-18 12:08] LABS: Partial Thromboplastin Ratio 1.1; Partial Thromboplastin Time 28.6 Seconds (21.0-31.0)
--- NOTE | 2021-03-18 12:52 | Orthopedic Consultation ---
Date of Consultation March 18, 2021 Assessment & Plan (1) Left hip pain: At this time I have reviewed her x-rays of the lumbar spine. Her fusion mass appears to be intact and well aligned. She does have evidence of adjacent level disease prickly at the thoracolumbar junction. I would like obtain an MRI of the lumbar spine to rule out any neural encroachment that could contribute to her left hip pain. Clearly should be at risk for an L1 and L2 radiculopathy. Make further conditions upon follow-up. Present on Admission?: Yes History of Present Illness Reason for Consultation: Back and left hip pain Attending Physician: Bob Kelly, DO History of Present Illness This is a 76-year-old female known to me the presents with marked decline in status with considerable back and left hip pain. She is unable to ambulate and care for self. She has been subsequently admitted to help formulate an etiology and treatment plan. At this time she is complaining of swelling in her lower extremities and significant pain in the above-mentioned regions. Allergies Allergy/AdvReac Type Severity Reaction Status Date / Time No Known Allergies Allergy Verified 09/03/20 13:48 Home Medications Medication Instructions Recorded Confirmed Type amitriptyline 25 mg tablet 25 mg PO DAILY #90 tab 07/03/19 03/18/21 Rx carvedilol 6.25 mg tablet 6.25 mg PO DAILY #90 tab 07/03/19 03/18/21 Rx cholecalciferol (vitamin D3) 1,250 50,000 units PO WEEKLY #14 cap 07/03/19 03/18/21 Rx mcg (50,000 unit) capsule clonazepam 1 mg tablet 1 mg PO HS PRN #30 tab 07/03/19 03/18/21 Rx colestipol 1 gram tablet 2 gm PO DAILY #180 tab 07/03/19 03/18/21 Rx cyanocobalamin (vitamin B-12) 1,000 mcg PO DAILY #30 cap 07/03/19 03/18/21 Rx 1,000 mcg capsule docusate sodium 100 mg capsule 100 mg PO BID #60 cap 07/03/19 03/18/21 Rx ferrous sulfate 325 mg (65 mg 325 mg PO BID #60 tab 07/03/19 03/18/21 Rx iron) tablet levothyroxine 112 mcg capsule 112 mcg PO DAILY #90 cap 07/03/19 03/18/21 Rx lisinopril 40 mg tablet 40 mg PO DAILY #90 tab 07/03/19 03/18/21 Rx lorazepam 0.5 mg tablet 0.5 mg PO TID PRN #90 tab 07/03/19 03/18/21 Rx oxycodone 5 mg tablet 5 mg PO Q4H PRN #60 tab 07/03/19 03/18/21 Rx pantoprazole 40 mg tablet,delayed 40 mg PO BID #180 tab 07/03/19 03/18/21 Rx release potassium chloride 10 mEq 10 meq PO BID #180 tab 07/03/19 03/18/21 Rx tablet,extended release promethazine 25 mg tablet 25 mg PO Q6H PRN #30 tab 07/03/19 03/18/21 Rx furosemide 20 mg PO BID 03/17/21 03/18/21 History pramipexole 0.25 mg PO DAILY PRN 03/17/21 03/17/21 History pramipexole 0.5 mg PO QPM 03/17/21 03/18/21 History warfarin 2.5 mg PO FR 03/18/21 03/18/21 History warfarin 5 mg PO SUMOTUWETHSA 03/18/21 03/18/21 History Patient History Medical History (Updated 03/18/21 @ 10:37 by Astrid Gardner PA-C) Anemia CKD (chronic kidney disease), stage III Depression JOSE (generalized anxiety disorder) HTN (hypertension) Hypothyroidism IBS (irritable bowel syndrome) NIKKI (obstructive sleep apnea) Intolerant to CPAP Pulmonary embolism Rotator cuff tear arthropathy of right shoulder Vitamin D deficiency Surgical History (Updated 03/18/21 @ 10:38 by Astrid Gardner PA-C) History of bilateral knee replacement History of cataract extraction History of hysterectomy History of spinal fusion S/P cardiac cath "2002 - normal coronaries" S/P cholecystectomy S/P left knee arthroscopy Family History (Updated 03/18/21 @ 10:40 by Astrid Gardner PA-C) Father Pulmonary embolism, Onset Age: 69 Stroke Mother , 93 Arthritis Hypertension Sister Breast cancer Social History (Updated 03/18/21 @ 10:38 by Astrid Gardner PA-C) Smoking Status: Never smoker Hx Alcohol Use: No Hx Substance Use: No Preferred Language: Vietnamese Communication Ability: Effective Digital Coordinator Required: No Beliefs That Will Affect Care: None marital status: / Current Living Situation: Alone Feels Safe at Home: Yes Assistive Devices: Glasses and Walker Physical Exam Physical Exam: On exam she is in bed. She does appear to be neurologically intact. Results & Data ([facility]) Vital Signs (Past 12 Hours) Vital Signs Temp Pulse Resp BP Pulse Ox 03/18/21 07:07 36.9 C 78 18 113/70 97
[2021-03-18 14:00] LABS: Partial Thromboplastin Time 27.6 Seconds (21.0-31.0)
[2021-03-18] MEDS: HEPARIN SODIUM/DEXTROSE 25,000 UNITS/500 ML BAG IV SCH (15:11)
[2021-03-18] MEDS: PRAMIPEXOLE DIHYDROCHLO 0.25 MG TAB PO PRN (15:57)
[2021-03-18] MEDS: Heparin IV Adult Wt-Based Standard *NO* Bolus Protocol IV SCH ×5 (16:00→16:04)
[2021-03-18] MEDS ORDERED: LORazepam 0.5 MG/1 ML VIAL IV SCH (16:30)
[2021-03-18] MEDS: PRAMIPEXOLE DIHYDROCHLO 0.5 MG TAB PO SCH (20:27)
[2021-03-18] MEDS ORDERED: PRAMIPEXOLE DIHYDROCHLO 0.5 MG TAB PO SCH (21:00)
[2021-03-18 21:25] LABS: Partial Thromboplastin Ratio 1.4; Partial Thromboplastin Time 36.5 Seconds (21.0-31.0)
[2021-03-18] MEDS ORDERED: HYDROmorphone INJ 0.5 MG/0.5 ML SYR IV PRN (21:45)
[2021-03-18] MEDS ORDERED: HEPARIN IV BOLUS 3,000 UNITS in SYRINGE 0 ML IV ONE (22:15)
[2021-03-19] MEDS: HYDROmorphone HCL 2 MG TAB PO PRN ×3 (04:09→13:36)
[2021-03-19] MEDS: LEVOTHYROXINE SODIUM 112 MCG TABLET PO SCH (05:46)
[2021-03-19 06:08] LABS: INR 1.2 (0.9-1.1); Partial Thromboplastin Ratio 3.2; Prothrombin Time 12.4 Seconds (9.0-12.0)
[2021-03-19 06:44] LABS: Partial Thromboplastin Time 83.3 Seconds (21.0-31.0)
[2021-03-19] MEDS: ACETAMINOPHEN 325 MG TAB PO SCH ×4 (07:23→22:03)
[2021-03-19] MEDS: COLESTIPOL HCL 1 GM TAB PO SCH (07:23)
[2021-03-19] MEDS: POTASSIUM CHLORIDE 10 MEQ TABCR PO SCH ×2 (07:23→22:04)
[2021-03-19] MEDS: FERROUS SULFATE 325 MG TAB PO SCH ×2 (07:24→22:05)
[2021-03-19] MEDS: CYANOCOBALAMIN 500 MCG TABLET (VITAMIN B-12) PO SCH (07:24)
[2021-03-19] MEDS: LIDOCAINE 5% 1 PATCH TD SCH (07:24)
[2021-03-19] MEDS: AMITRIPTYLINE HCL 25 MG TAB PO SCH (07:24)
[2021-03-19] MEDS: PANTOprazole 40 MG TAB PO SCH ×2 (07:24→22:04)
[2021-03-19] MEDS: DOCUSATE SODIUM 100 MG CAP PO SCH ×2 (07:24→22:00)
[2021-03-19] MEDS: lisinopril 40 MG TAB PO SCH (07:24)
[2021-03-19] MEDS: FUROSEMIDE 20 MG TAB PO SCH ×2 (07:25→17:18)
[2021-03-19] MEDS: carvediloL 6.25 MG TAB PO SCH (07:25)
--- NOTE | 2021-03-19 07:52 | Magnetic Resonance Report ---
MR lumbar spine wo con CLINICAL HISTORY: back and leg pain TECHNIQUE: Sagittal and axial T1, T2 and STIR images were obtained. COMPARISON STUDY: X-ray study dated 03/18/2021 OBSERVATIONS: There are no areas of marrow replacement suspicious for neoplasm. There is artifact secondary to exte nsive spinal hardware. There is marrow edema at the T12-L1 level, statistically on a discogenic basis . The patient is status post a L2-S1 spinal decompression and fusion T12-L1 level: There is cystic degeneration of the disc. There is endplate marrow edema likely degener ative discogenic basis. There is a circumferential disc bulge. There is mild spinal stenosis. There i s mild bilateral foraminal narrowing. L1-2: The patient is status post a prior spinal fusion. There is no significant disc bulge or focal h erniation. There is no significant spinal stenosis. There is moderate right-sided foraminal narrowing L2-3: The patient is status post a discectomy and interbody fusion. There are history laminectomy lisandro nges present. There is no significant spinal stenosis. There is mild bilateral foraminal narrowing. T here is a nonspecific 1 cm cystic structure located anterior to the L2 vertebral body to the left of midline. L3-4: There are postlaminectomy changes. There is no significant spinal stenosis. There is no signifi cant foraminal narrowing L4-5: The patient is status post a discectomy and interbody fusion. There are postlaminectomy changes . There is no significant spinal stenosis. There is mild bilateral foraminal narrowing L5-S1: There is a circumferential disc bulge. Postlaminectomy changes are present. There is no signif icant spinal stenosis. There is mild bilateral foraminal narrowing. There is somewhat tubular cystic structure located anterior to the T10 and T11 vertebra. This is nons pecific. A dilated thoracic duct could appear similar. The conus medullaris and cauda equina appear normal. IMPRESSION: 1. Postsurgical changes of an L2-S1 spinal decompression and fusion 2. Mild multilevel foraminal narrowing 3. Mild spinal stenosis at the T12-L1 level. ACT 112: Negative or not required by law. Electronically signed by: Slim Rodrigues M.D. 03/19/2021 7:50 AM
--- NOTE | 2021-03-19 08:33 | Hospitalist Progress Note ---
Date of Service March 19, 2021 Assessment & Plan (1) Left hip pain: Direct admit from orthopedics MRI L Hip shows trochanteric bursitis, L hip osteoarthritis MRI of lumbar spine with postsurgical changes of an L2-S1 spinal decompression and fusion, mild multilevel foraminal narrowing, mild spinal stenosis at the T12-L1 level Pain in distribution over left sacroiliac joint - adding ice to regimen. Also planning for evaluation for PT/OT evaluation Concern for stenosis of thoracic spine, per Dr. Tan with significant stenosis at the thoracolumbar junction. 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 Stein, please see addendum Thank you for this consultation. We will follow the patient with you during their hospital stay. You can reach a member of the [facility] Hospitalist Team 06/06 via hospitalist role on tiger text. Admission and Anticipated Discharge Date Admission Date: March 17, 2021 Supervising Physician Co-Signing Physician Notes I have seen and examined the patient and have discussed the case with the provider above. I agree with the assessment and plan as stated. She is feeling about the same level of pain today. She had a difficult time attempting the th oracic MRI today which was deferred 2/2 anxiety. She is otherwise doing well. My physical exam is consistent with that above. If no procedure planned, will need to start coumadin [place]. Thank you for this consultation. We will continue to follow her throughout the remainder of her hospital stay. DO Emil Subjective Patient seen and examined in 312-1. Continued to experience sharp and occasionally burning pain along the left lower back with radiation into buttocks and wrapping around to front area of groin and lower abdomen. Exacerbated with movement. Undergoing additional thoracic imaging per orthopedic service. Also plans for evaluation with physical therapy later today. No other new concerns at this time. Denies fever, chills, lightheadedness, headache, chest pain, SOB, nauses, vomiting, abdominal pain, dysuria, diarrhea or constipation. Review of Systems Review of Systems: At least ten systems reviewed and negative except as noted in the HPI. Physical Exam Physical Exam: General Appearance: WD/WN, vitals as above, NAD, sitting up in bed, pleasant, obese Head: normocephalic, atraumatic Eyes: normal inspection, PERRL, conjunctivae normal, anicteric sclerae ENT: external ear and nose normal, oropharynx normal Neck: normal visual inspection, trachea midline, no thyromegaly Respiratory: normal respiratory effort, lungs clear to auscultation, no wheeze, rales, rhonchi. No accessory muscle use Cardiovascular: regular rate, rhythm, no murmur, normal peripheral pulses, no BLE edema Abdomen/GI: normal bowel sounds, soft, nontender, no hepatosplenomegaly Extremities/Musculoskeletal: TTP along posterior superior iliac spine extending to area of L SI joint and anterior suprapubic area on the left. No cyanosis or clubbing, extremities motor strength 5/5 Neurologic: PERRL, EOMI, accommodation nl, no face palsy, no dysarthria, CN's II-XI intact bilaterally and moves all extremities Psychiatric: A+Ox3, euthymic affect Skin: no rashes, normal color, warm/dry Results & Data Results & Data ([facility]) Vital Signs (Past 12 Hours) Vital Signs Temp Pulse Resp BP Pulse Ox 03/19/21 07:10 36.7 C 77 18 126/84 96 03/18/21 23:13 36.9 C 72 20 121/77 94 Diagnostic Findings Hip MRI 03/17/21 17:22 MRI OF THE LEFT HIP WITHOUT IV CONTRAST CLINICAL HISTORY: Left hip pain. COMPARISON STUDY: Pelvic CT dated 08/29/2011. TECHNIQUE: MRI of the left hip and bony pelvis is performed utilizing various T1 and T2-weighted sequences in the axial, sagittal, and coronal planes. IV contrast was not administered for this examination. Note that interpretation is suboptimal without current plain film correlate. FINDINGS: Fatty marrow change is noted throughout the pelvis. There is no MRI evidence of fracture involving the hips or visualized bony pelvis. There is no evidence of osteonecrosis of the femoral heads. Osteoarthritic change is seen in the hips, left greater than right. There is mild marrow edema within the posterior aspect of the left femoral head. There is no hip joint effusion. Extensive lumbosacral fusion hardware is in place. Signal abnormality identified in the sacrum bilaterally is likely related to susceptibility artifact from metallic hardware. There is evidence of trochanteric bursitis on the left. There is generalized fatty atrophy of the regional musculature. No pelvic sidewall or inguinal adenopathy is identified. The bladder is normal as imaged. The uterus is surgically absent. No free fluid is seen in the pelvis. IMPRESSION: 1. No acute bony abnormality is identified. 2. There is evidence of trochanteric bursitis on the left. 3. There is osteoarthritic change noted in the left hip with mild marrow edema of the femoral head. Dictated: 03/18/2021 8:00 AM Transcribed: 03/18/2021 8:38 AM Glenna [id number] [facility] Electronically signed by: Mir Lorenzo M.D. 03/18/2021 8:43 AM Lumbar Spine X-Ray 03/18/21 06:38 XR lumbar spine 2-3V CLINICAL HISTORY: back pain COMPARISON STUDY: No previous studies for comparison. FINDINGS: There are postsurgical changes of an L2-S1 spinal decompression and fusion with discectomies interbody fusions at the L2-3, L4-5, and L5-S1 levels. There are moderately advanced degenerative changes at the thoracolumbar junction. There is lucency surrounding the L2 and S1 pedicle screws, suspicious for hardware loosening. IMPRESSION: 1. Postsurgical changes of a prior spinal decompression and fusion 2. No acute fractures 2. Moderately advanced degenerative changes the thoracolumbar junction 4. Lucency surrounding the L2 and S1 pedicle screws, suspicious for hardware loosening ACT 112: Negative or not required by law. Electronically signed by: Slim Rodrigues M.D. 03/18/2021 10:43 AM Lumbar Spine MRI 03/18/21 07:36 MR lumbar spine wo con CLINICAL HISTORY: back and leg pain TECHNIQUE: Sagittal and axial T1, T2 and STIR images were obtained. COMPARISON STUDY: X-ray study dated 03/18/2021 OBSERVATIONS: There are no areas of marrow replacement suspicious for neoplasm. There is artifact secondary to extensive spinal hardware. There is marrow edema at the T12-L1 level, statistically on a discogenic basis. The patient is status post a L2-S1 spinal decompression and fusion T12-L1 level: There is cystic degeneration of the disc. There is endplate marrow edema likely degenerative discogenic basis. There is a circumferential disc bu lge. There is mild spinal stenosis. There is mild bilateral foraminal narrowing. L1-2: The patient is status post a prior spinal fusion. There is no significant disc bulge or focal herniation. There is no significant spinal stenosis. There is moderate right-sided foraminal narrowing L2-3: The patient is status post a discectomy and interbody fusion. There are history laminectomy changes present. There is no significant spinal stenosis. There is mild bilateral foraminal narrowing. There is a nonspecific 1 cm cystic structure located anterior to the L2 vertebral body to the left of midline. L3-4: There are postlaminectomy changes. There is no significant spinal stenosis. There is no significant foraminal narrowing L4-5: The patient is status post a discectomy and interbody fusion. There are postlaminectomy changes. There is no significant spinal stenosis. There is mild bilateral foraminal narrowing L5-S1: There is a circumferential disc bulge. Postlaminectomy changes are presen t. There is no significant spinal stenosis. There is mild bilateral foraminal narrowing. There is somewhat tubular cystic structure located anterior to the T10 and T11 vertebra. This is nonspecific. A dilated thoracic duct could appear similar. The conus medullaris and cauda equina appear normal. IMPRESSION: 1. Postsurgical changes of an L2-S1 spinal decompression and fusion 2. Mild multilevel foraminal narrowing 3. Mild spinal stenosis at the T12-L1 level. ACT 112: Negative or not required by law. Electronically signed by: Slim Rodrigues M.D. 03/19/2021 7:50 AM
[2021-03-19] MEDS: HEPARIN SODIUM/DEXTROSE 25,000 UNITS/500 ML BAG IV SCH (08:51)
--- NOTE | 2021-03-19 10:20 | Orthopedic Progress Note ---
Date of Service March 19, 2021 Assessment & Plan (1) Sacroiliitis: Admission and Anticipated Discharge Date Admission Date: March 17, 2021 At this time I have 2 concerns. She does have tenderness over the left sacroiliac joint. She clearly a candidate for sacroiliitis and this could be contributing to her symptom complex. However MRI does demonstrate evidence of I would consider significant stenosis at the thoracolumbar junction. She has evidence of instability on x-rays with vacuums at these levels. I would like obtain an MRI of the thoracic spine with a specific attention to the T10-T11 disc. This could also be a radicular component to her pain. Make further conditions upon review. Subjective Patient continues to complain of pain across the left upper buttock rating into the left groin and lower abdomen. Markedly exacerbated with standing and walking. Is still considerably limiting in nature. Right lower extremities asymptomatic. Physical Exam Physical Exam: On exam she is in bed. She does have some tenderness palpation of left sacroiliac joint. No gross strength deficits. Results & Data ([facility]) Vital Signs (Past 12 Hours) Vital Signs Temp Pulse Resp BP Pulse Ox 03/19/21 07:10 36.7 C 77 18 126/84 96 03/18/21 23:13 36.9 C 72 20 121/77 94
[2021-03-19] MEDS: LORazepam 0.5 MG TAB PO PRN ×2 (12:48→22:03)
[2021-03-19 13:12] LABS: Partial Thromboplastin Ratio 2.3
[2021-03-19 13:27] LABS: Partial Thromboplastin Time 60.1 Seconds (21.0-31.0)
[2021-03-19] MEDS: PRAMIPEXOLE DIHYDROCHLO 0.25 MG TAB PO PRN (13:36)
--- NOTE | 2021-03-19 16:46 | Orthopedic Progress Note ---
Date of Service March 19, 2021 Assessment & Plan (1) Left hip pain: I think most of her pain is coming from her back. We will see what the lower thoracic MRI shows. The lumbar MRI did show some significant stenosis at the T12-L1 level. The fusion appeared to be in good alignment. We will con tinue with the pain medications to keep her comfortable. We will try to come up with a more definitive diagnosis before we discharge her to home. Donya Roland was seen and examined at bedside. Unfortunately she is still having a lot of pain in her back that radiates around to her hip. She was seen by Dr. Tan today. He feels it may be coming from her back. She is currently awaiting a lower thoracic MRI. Her pain is relatively well controlled on the oral and IV pain medications.. Review of Systems All systems reviewed & are unremarkable except as noted in HPI & below. Physical Exam Physical examinations unchanged. She continues have pain that radiates from her lumbar region around to her left hip.. Results & Data Results & Data Laboratory Results . Diagnostic Findings . PG Care Time/CCT Total # of Minutes Spent Total Time Spent with Patient: Total time spent is greater than 50% in coordination of care (as documented) at patient's floor/unit and/or counseling patient: Coding Level of Care Code 29299 Subseq Hosp Care Lvl 1 Diagnoses Left hip pain M25.552
[2021-03-19] MEDS: PRAMIPEXOLE DIHYDROCHLO 0.5 MG TAB PO SCH (22:05)
[2021-03-20] MEDS ORDERED: ENOXAPARIN INJ 120 MG/0.8 ML SYR SQ SCH
[2021-03-20] MEDS: HEPARIN SODIUM/DEXTROSE 25,000 UNITS/500 ML BAG IV SCH ×3 (00:21→17:29)
[2021-03-20] MEDS: LEVOTHYROXINE SODIUM 112 MCG TABLET PO SCH (05:28)
[2021-03-20 06:08] LABS: Hematocrit (blood only) 33.3 % (37-47); Hemoglobin 10.4 g/dL (12.0-16.0); Mean Corpuscular Hemoglobin 27.2 pg (25-34); Mean Corpuscular Hgb Conc 31.2 g/dL (32-36); Mean Corpuscular Volume 86.9 fL (80-100); Mean Platelet Volume 11.9 fL (7.4-10.4); Platelet Count 181 K/uL (130-400); RDW Coefficient of Variation 14.6 % (11.5-14.5); RDW Standard Deviation 46.6 fL (36.4-46.3); Red Blood Count 3.83 M/uL (4.2-5.4); White Blood Count 3.37 K/uL (4.8-10.8)
[2021-03-20 06:26] LABS: INR 1.1 (0.9-1.1); Partial Thromboplastin Ratio 2.2; Prothrombin Time 11.4 Seconds (9.0-12.0)
[2021-03-20 06:29] LABS: Partial Thromboplastin Time 58.3 Seconds (21.0-31.0)
[2021-03-20 06:32] LABS: BUN Creatinine Ratio 19.6 (10-20); Calcium 8.8 mg/dl (8.5-10.1); Creatinine Clr Calc Pharmacy 65.5 ml/min; Est GFR (African American) 76.1; Est GFR (Non-African American) 65.6; Potassium 4.2 mmol/L (3.5-5.1)
[2021-03-20] MEDS: carvediloL 6.25 MG TAB PO SCH (07:28)
[2021-03-20] MEDS: POTASSIUM CHLORIDE 10 MEQ TABCR PO SCH ×2 (07:28→21:41)
[2021-03-20] MEDS: CYANOCOBALAMIN 500 MCG TABLET (VITAMIN B-12) PO SCH (07:28)
[2021-03-20] MEDS: DOCUSATE SODIUM 100 MG CAP PO SCH ×2 (07:28→21:40)
[2021-03-20] MEDS: FERROUS SULFATE 325 MG TAB PO SCH ×2 (07:28→21:40)
[2021-03-20] MEDS: lisinopril 40 MG TAB PO SCH (07:28)
[2021-03-20] MEDS: PRAMIPEXOLE DIHYDROCHLO 0.25 MG TAB PO PRN (07:28)
[2021-03-20] MEDS: FUROSEMIDE 20 MG TAB PO SCH ×2 (07:29→17:27)
[2021-03-20] MEDS: ACETAMINOPHEN 325 MG TAB PO SCH ×4 (07:29→21:39)
[2021-03-20] MEDS: AMITRIPTYLINE HCL 25 MG TAB PO SCH (07:29)
[2021-03-20] MEDS: LIDOCAINE 5% 1 PATCH TD SCH (07:29)
[2021-03-20] MEDS: PANTOprazole 40 MG TAB PO SCH ×2 (07:29→21:39)
[2021-03-20] MEDS: oxyCODONE HCL IR 5 MG TAB (IMMEDIATE RELEASE) PO PRN ×2 (07:35→13:09)
--- NOTE | 2021-03-20 08:02 | Magnetic Resonance Report ---
MR thoracic spine wo con CLINICAL HISTORY: Pain with left-sided radiculopathy. PRIOR STUDIES: None TECHNIQUE: MR scanning of the thoracic spine was performed using multiple pulse sequences. No gadoli nium was administered. FINDINGS: There are no areas of marrow replacement suspicious for metastatic disease. There is a T11 vertebral body hemangioma. There are no areas of marrow edema to indicate acute fracture. There is an old T12 wedge compression deformity. There are multilevel degenerative changes. There are circumferential disc bulges most pronounced at t he T7-8, and T8-9, and T12-L1 levels. There is no evidence for moderate or severe spinal stenosis wit hin the thoracic spine no intrinsic cord lesions are visualized in this noncontrast study. Postsurgic al degenerative changes within the lumbar spine will be detailed in the separate report of the lumbar spine. No paraspinal masses are visualized in this noncontrast study. The study is motion degraded. IMPRESSION: 1. Multilevel degenerative change 2. Old T12 wedge compression deformity 3. No acute fractures 4. No evidence of metastatic disease 5. No intrinsic cord lesions identified ACT 112: Negative or not required by law. Electronically signed by: Slim Rodrigues M.D. 03/20/2021 8:01 AM
--- NOTE | 2021-03-20 08:55 | Hospitalist Progress Note ---
Date of Service March 20, 2021 Assessment & Plan (1) Left hip pain: Direct admit from orthopedics Imaging during stay: * MRI L Hip shows trochanteric bursitis, L hip osteoarthritis * MRI of lumbar spine with postsurgical changes of an L2-S1 spinal decompression and fusion, mild multilevel foraminal narrowing, mild spinal stenosis at the T12-L1 level * MRI of thoracic spine with multilevel degenerative change and old T12 wedge compression deformities. No acute fractures or intrinsic cord lesions identified Per Dr. Tan, pain is thought to be due to combination of sacroiliitis on the left with thoracolumbar stenosis Patient not interested in any surgical intervention To follow up with interventional pain management to address both the sacroiliitis as well as possible repeat spinal epidurals Follow up with Dr. Tan in office in the next 3 to 4 weeks to assess her progress PT/OT evaluation (2) History of DVT (deep vein thrombosis): Hx of DVT/PE 5 years ago. On senior care anticoagulation due to significant family history of DVT/PE, history of elevated homocystine levels Coumadin has been held since admission in case need for OR - has been bridged with IV heparin during this time INR subtherapeutic at 1.1 today Plan to give 10mg coumadin today and tomorrow and then continue regular home regimen of 5mg daily until INR check on Tuesday Will bridge with SQ Lovenox 120mg BID during this time until INR is rechecked Further instruction per MTM clinic Will discuss plan with patient, include instructions in discharge and coordinate with MTM (3) HTN (hypertension): BP controlled continue coreg/losartan (4) CKD (chronic kidney disease), stage III: Baseline cr 0.8-1.0 Bun/cr stable, monitor (5) Anemia: H&H stable at 10.0 and 31.1 Continue iron supplement (6) JOSE (generalized anxiety disorder): Continue as needed lorazepam, may also aid in muscle relaxation Dispo Med/surg PCP: Elton Full code Patient was seen and examined in collaboration with Dr. Stein, please see addendum Thank you for this consultation. We will follow the patient with you during their hospital stay. You can reach a member of the [facility] Hospitalist Team 06/06 via hospitalist role on tiger text. (7) Sacroiliitis: Admission and Anticipated Discharge Date Admission Date: March 17, 2021 Supervising Physician Co-Signing Physician Notes I have seen and examined the patient and have discussed the case with the provider above. I agree with the assessment and plan as stated. Pain continues to improve. MRIs reviewed. Physical exam as above. Plan for outpatient injections per pain management. Bridging therapy reviewed with patient. DO Emil Subjective Patient seen and examined in 312-1. Experiencing the same pain along the left lower back with radiation into buttocks and wrapping around to front area of groin and lower abdomen. Exacerbated with movement. No other new concerns at this time. About to participate in PT/OT evaluation. Denies fever, chills, lightheadedness, headache, chest pain, SOB, nauses, vomiting, abdominal pain, dysuria, diarrhea or constipation. Review of Systems Review of Systems: At least ten systems reviewed and negative except as noted in the HPI. Physical Exam Physical Exam: General Appearance: WD/WN, vitals as above, NAD, sitting up in bed, pleasant, obese Head: normocephalic, atraumatic Eyes: normal inspection, PERRL, conjunctivae normal, anicteric sclerae ENT: external ear and nose normal, oropharynx normal Neck: normal visual inspection, trachea midline, no thyromegaly Respiratory: normal respiratory effort, lungs clear to auscultation, no wheeze, rales, rhonchi. No accessory muscle use Cardiovascular: regular rate, rhythm, no murmur, normal peripheral pulses, no BLE edema Abdomen/GI: normal bowel sounds, soft, nontender, no hepatosplenomegaly Extremities/Musculoskeletal: TTP along posterior superior iliac spine extending to area of L SI joint and anterior suprapubic area on the left. No cyanosis or clubbing, extremities motor strength 5/5 Neurologic: PERRL, EOMI, accommodation nl, no face palsy, no dysarthria, CN's II-XI intact bilaterally and moves all extremities Psychiatric: A+Ox3, euthymic affect Skin: no rashes, normal color, warm/dry Results & Data Results & Data ([facility]) Vital Signs (Past 12 Hours) Vital Signs Temp Pulse Resp BP Pulse Ox 03/20/21 07:24 36.4 C L 73 16 105/73 91 03/19/21 23:35 36.7 C 79 16 125/72 96 03/19/21 21:43 36.9 C 85 20 138/85 99 Laboratory Results Short CBC 03/20/21 Range/Units 05:34 WBC 3.37 L (4.8-10.8) K/uL Hgb 10.4 L (12.0-16.0) g/dL Hct 33.3 L (37-47) % Plt Count 181 (130-400) K/uL BMP 03/20/21 05:34 Sodium 137 Potassium 4.2 Chloride 103 Carbon Dioxide 31 BUN 17 Creatinine 0.85 Glucose 98 Calcium 8.8 Diagnostic Findings Hip MRI 03/17/21 17:22 MRI OF THE LEFT HIP WITHOUT IV CONTRAST CLINICAL HISTORY: Left hip pain. COMPARISON STUDY: Pelvic CT dated 08/29/2011. TECHNIQUE: MRI of the left hip and bony pelvis is performed utilizing various T1 and T2-weighted sequences in the axial, sagittal, and coronal planes. IV contrast was not administered for this examination. Note that interpretation is suboptimal without current plain film correlate. FINDINGS: Fatty marrow change is noted throughout the pelvis. There is no MRI evidence of fracture involving the hips or visualized bony pelvis. There is no evidence of osteonecrosis of the femoral heads. Osteoarthritic change is seen in the hips, left greater than right. There is mild marrow edema within the posterior aspect of the left femoral head. There is no hip joint effusion. Extensive lumbosacral fusion hardware is in place. Signal abnormality identified in the sacrum bilaterally is likely related to susceptibility artifact from metallic hardware. There is evidence of trochanteric bursitis on the left. There is generalized fatty atrophy of the regional musculature. No pelvic sidewall or inguinal adenopathy is identified. The bladder is normal as imaged. The uterus is surgically absent. No free fluid is seen in the pelvis. IMPRESSION: 1. No acute bony abnormality is identified. 2. There is evidence of trochanteric bursitis on the left. 3. There is osteoarthritic change noted in the left hip with mild marrow edema of the femoral head. Dictated: 03/18/2021 8:00 AM Transcribed: 03/18/2021 8:38 AM Glenna [id number] [facility] Electronically signed by: Mir Lorenzo M.D. 03/18/2021 8:43 AM Lumbar Spine X-Ray 03/18/21 06:38 XR lumbar spine 2-3V CLINICAL HISTORY: back pain COMPARISON STUDY: No previous studies for comparison. FINDINGS: There are postsurgical changes of an L2-S1 spinal decompression and fusion with discectomies interbody fusions at the L2-3, L4-5, and L5-S1 levels. There are moderately advanced degenerative changes at the thoracolumbar junction. There is lucency surrounding the L2 and S1 pedicle screws, suspicious for hardware loosening. IMPRESSION: 1. Postsurgical changes of a prior spinal decompression and fusion 2. No acute fractures 2. Moderately advanced degenerative changes the thoracolumbar junction 4. Lucency surrounding the L2 and S1 pedicle screws, suspicious for hardware loosening ACT 112: Negative or not required by law. Electronically signed by: Slmi Rodrigues M.D. 03/18/2021 10:43 AM Lumbar Spine MRI 03/18/21 07:36 MR lumbar spine wo con CLINICAL HISTORY: back and leg pain TECHNIQUE: Sagittal and axial T1, T2 and STIR images were obtained. COMPARISON STUDY: X-ray study dated 03/18/2021 OBSERVATIONS: There are no areas of marrow replacement suspicious for neoplasm. There is artifact secondary to extensive spinal hardware. There is marrow edema at the T12-L1 level, statistically on a discogenic basis. The patient is status post a L2-S1 spinal decompression and fusion T12-L1 level: There is cystic degeneration of the disc. There is endplate marrow edema likely degenerative discogenic basis. There is a circumferential disc bulge. There is mild spinal stenosis. There is mild bilateral foraminal narrowing. L1-2: The patient is status post a prior spinal fusion. There is no significant disc bulge or focal herniation. There is no significant spinal stenosis. There is moderate right-sided foraminal narrowing L2-3: The patient is status post a discectomy and interbody fusion. There are history laminectomy changes present. There is no significant spinal stenosis. There is mild bilateral foraminal narrowing. There is a nonspecific 1 cm cystic structure located anterior to the L2 vertebral body to the left of midline. L3-4: There are postlaminectomy changes. There is no significant spinal stenosis. There is no significant foraminal narrowing L4-5: The patient is status post a discectomy and interbody fusion. There are postlaminectomy changes. There is no significant spinal stenosis. There is mild bilateral foraminal narrowing L5-S1: There is a circumferential disc bulge. Postlaminectomy changes are present. There is no significant spinal stenosis. There is mild bilateral foraminal narrowing. There is somewhat tubular cystic structure located anterior to the T10 and T11 vertebra. This is nonspecific. A dilated thoracic duct could appear similar. The conus medullaris and cauda equina appear normal. IMPRESSION: 1. Postsurgical changes of an L2-S1 spinal decompression and fusion 2. Mild multilevel foraminal narrowing 3. Mild spinal stenosis at the T12-L1 level. ACT 112: Negative or not required by law. Electronically signed by: Slim Rodrigues M.D. 03/19/2021 7:50 AM Thoracic Spine MRI 03/19/21 08:38 MR thoracic spine wo con CLINICAL HISTORY: Pain with left-sided radiculopathy. PRIOR STUDIES: None TECHNIQUE: MR scanning of the thoracic spine was performed using multiple pulse sequences. No gadolinium was administered. FINDINGS: There are no areas of marrow replacement suspicious for metastatic disease. There is a T11 vertebral body hemangioma. There are no areas of marrow edema to indicate acute fracture. There is an old T12 wedge compression deformity. There are multilevel degenerative changes. There are circumferential disc bulges most pronounced at the T7-8, and T8-9, and T12-L1 levels. There is no evidence for moderate or severe spinal stenosis within the thoracic spine no intrinsic cord lesions are visualized in this noncontrast study. Postsurgical degenerative changes within the lumbar spine will be detailed in the separate report of the lumbar spine. No paraspinal masses are visualized in this noncontrast study. The study is motion degraded. IMPRESSION: 1. Multilevel degenerative change 2. Old T12 wedge compression deformity 3. No acute fractures 4. No evidence of metastatic disease 5. No intrinsic cord lesions identified ACT 112: Negative or not required by law. Electronically signed by: Slim Rodrigues M.D. 03/20/2021 8:01 AM
[2021-03-20] MEDS: COLESTIPOL HCL 1 GM TAB PO SCH (09:30)
[2021-03-20] MEDS ORDERED: WARFARIN SOD 5 MG TAB PO ONE ×2 (11:45→13:45)
--- NOTE | 2021-03-20 12:07 | Orthopedic Progress Note ---
Date of Service March 20, 2021 Assessment & Plan (1) Sacroiliitis: Admission and Anticipated Discharge Date Admission Date: March 17, 2021 This time I do believe the patient is a combination of sacroiliitis on the left with thoracolumbar stenosis creating component of her flank and groin pain. She would like to avoid any surgical intervention. This is completely reasonable. We will have her follow-up with interventional pain management to address both the sacroiliitis as well as possible repeat spinal epidurals. I would see her in my office in the next 3 to 4 weeks to assess her progress. Subjective Patient states her symptoms are somewhat improved but still predominantly left- sided radiating to the buttock and groin. She tolerates sitting in a chair at this time. Physical Exam Physical Exam: On exam she is in the chair at the bedside. Has reasonable strength testing. Results & Data ([facility]) Vital Signs (Past 12 Hours) Vital Signs Temp Pulse Resp BP Pulse Ox 03/20/21 07:24 36.4 C L 73 16 105/73 91
--- NOTE | 2021-03-20 15:40 | Orthopedic Progress Note ---
Date of Service March 20, 2021 Assessment & Plan (1) Sacroiliitis: Asuncion has had an MRI of her hip, her lumbar spine, and her thoracic spine. Dr. Tan feels that most the pain is coming from her lower thoracic spine anterior left SI joint. I would agree with that. I do not see enough fluid in the hip joint to warrant this amount of pain. The Dilaudid seems to be helping her pain. She does not want any surgical interventions. She feels comfortable being discharged home tomorrow on oral Dilaudid and will likely follow-up with pain management for possible epidural or SI joint injections. Subjective Asuncion was seen and examined at bedside this morning. Overall she is doing a little bit better. She still has pain in her back and radiates down to her hip. She was seen by Dr. Tan today. She has obtained an MRI of her thoracic s pine. She has no new complaints.. Review of Systems All systems reviewed & are unremarkable except as noted in HPI & below. Physical Exam Physical examination essentially unchanged. She has pain that radiates from her low back and her SI joint around to her left groin.. Results & Data Results & Data Laboratory Results . Diagnostic Findings RI the thoracic spine shows multilevel degenerative disc disease.. PG Care Time/CCT Total # of Minutes Spent Total Time Spent with Patient: Total time spent is greater than 50% in coordination of care (as documented) at patient's floor/unit and/or counseling patient: Coding Level of Care Code 65972 Subseq Hosp Care Lvl 1 Diagnoses Sacroiliitis M46.1
[2021-03-20] MEDS: ENOXAPARIN INJ 120 MG/0.8 ML SYR SQ SCH (17:27)
[2021-03-20] MEDS ORDERED: HEPARIN DRIP -- STOP ORDER ONE (18:00)
[2021-03-20] MEDS: LORazepam 0.5 MG TAB PO PRN (21:39)
[2021-03-20] MEDS: HYDROmorphone HCL 2 MG TAB PO PRN (21:39)
[2021-03-20] MEDS: PRAMIPEXOLE DIHYDROCHLO 0.5 MG TAB PO SCH (21:40)
[2021-03-21] MEDS: HYDROmorphone HCL 2 MG TAB PO PRN ×2 (06:13→11:56)
[2021-03-21] MEDS: LEVOTHYROXINE SODIUM 112 MCG TABLET PO SCH (06:13)
[2021-03-21] MEDS: ENOXAPARIN INJ 120 MG/0.8 ML SYR SQ SCH (06:14)
[2021-03-21 06:47] LABS: INR 1.2 (0.9-1.1); Partial Thromboplastin Ratio 1.1; Partial Thromboplastin Time 28.8 Seconds (21.0-31.0); Prothrombin Time 11.6 Seconds (9.0-12.0)
--- NOTE | 2021-03-21 07:59 | Orthopedic Progress Note ---
Date of Service March 21, 2021 Assessment & Plan (1) Sacroiliitis: We have the MRIs of her thoracic and lumbar spine as well as her left hip. It appears that with her pathology is coming just superior to her previous fusion. I think it is radiating around her hip. She is not a good surgical c andidate and she does not want any surgeries. She can be discharged home today on Dilaudid. She has started back on her Coumadin and she will be bridged with Lovenox. I will have my office get in contact with not any pain management for an appointment. Hopefully this pain can be treated through injections. She is orthopedically stable for discharge today. Subjective Asuncion was seen and examined at bedside this morning. She still having pain in her back that radiates around. The Dilaudid pain medication seems to be helping. We have the MRI studies that we need. She is looking forward to getting home and following up with pain management for injections.. Review of Systems All systems reviewed & are unremarkable except as noted in HPI & below. Physical Exam Physical examination is essentially unchanged. She has pain from her lower lumbar spine that radiates around to her left hip.. Results & Data Results & Data Laboratory Results . Diagnostic Findings . PG Care Time/CCT Total # of Minutes Spent Total Time Spent with Patient: Total time spent is greater than 50% in coordination of care (as documented) at patient's floor/unit and/or counseling patient: Coding Level of Care Code 21547 Subseq Hosp Care Lvl 1 Diagnoses Sacroiliitis M46.1
--- NOTE | 2021-03-21 08:02 | Discharge Summary ---
Date of Service March 21, 2021 Principal Diagnosis Same as "Discharge Diagnosis" noted below under Discharge Instructions. Discharge Exam Physical examination is essentially unchanged. She has pain from her lower lumbar spine that radiates around to her left hip.. Discharge Data Consultations 03/17/21 17:19 Consult Internal Medicine Routine 03/17/21 17:23 Consult Orthopedic Surgery Routine Ordered Studies 03/17/21 17:22 MR hip LT wo con Urgent 03/18/21 07:36 MR lumbar spine wo con Routine 03/19/21 08:38 MR thoracic spine wo con Routine Hospital Course (1) Sacroiliitis: On March 18, 2021 Asuncion arrived at my office with intractable low back and hip pain. X-rays of her hip did not look too bad. She could not go home and live by herself with the way the pain was. She was admitted to [facility]. An MRI of her hip was then done which showed some moderate arthritis of the left hip. There was no fluid in the joint. It did not seem that all of this pain was coming from her hip. I consulted Dr. Tan. She has 5 previous back surgeries done in the past. He ordered an MRI of her lumbar spine. The MRI showed some possible pathology at the lower thoracic regions. He then ordered an MRI of her thoracic spine. The MRI showed multilevel degenerative disc disease and some pathology at the lower thoracic segments. She was also seen by the hospitalist. Her medications were managed and she was initially taken off Coumadin in case any surgical procedures would need done. After discussions with Dr. Tan, we felt that this could be treated with outpatient injections. Asuncion was started back on her Coumadin and Lovenox to bridge. She was then discharged on oral Dilaudid which seem to be helping with her pain. We will get in contact with [facility] pain management about setting up outpatient epidural injections. PG Care Time/CCT Total # of Minutes Spent Total Time Spent with Patient: Total time spent is greater than 50% in coordination of care (as documented) at patient's floor/unit and/or counseling patient: Discharge Plan Discharge Items Patient Disposition: Home - Home Health Services Reason For Visit: DIRECT ADMIT, INTRACTABLE BACK PAIN Discharge Diagnosis: Left lower thoracic radiculopathy and sacroiliitis Activity: Resume your previous activity Non-emergency contact: Surgeon Call non-emergency contact if: your pain is not controlled Follow-up/Referrals: Tristan Conde MD [Primary Care Provider] - Diet: Regular Ambulatory Orders: Prothrombin Time INR (Timed) Timeframe: 2 Days Location: Determined by Patient Ordered By: Orquidea Pederson Attending Provider Instructions: Follow-up with [facility] pain management. They should give you a call early next week for an appointment. If you do not hear from them, you can call the office of Dr. Kelly. [facility] Provider Instructions: After you are discharged tomorrow (03/21/21), this is your schedule for anticoagulation medications until you follow up at [place] [facility] on Tuesday03/23/21 at 5:10pm for INR check. Tuesday after discharge : Take two 5mg Coumadin tablets in afternoon at your regular time. Do Lovenox shot of 120mg at 6pm. Tuesday : Do Lovenox shot of 120mg at 6am, 5mg Coumadin in afternoon, Lovenox shot of 120mg at 6pm. Tuesday: Do Lovenox shot of 120mg at 6am, 5mg Coumadin in afternoon and wait for further instruction after INR check at [facility] clinic Pending Studies at Discharge: No Stand-Alone Forms: My [facility] [employer], Smoking Cessation Medications and DC Order Prescriptions: New enoxaparin [Lovenox] 120 mg/0.8 mL Syringe 120 mg subcut Q12H 5 Days Qty: 8 RF: 0 hydromorphone [Dilaudid] 2 mg Tablet 2 mg PO Q3H PRN (Reason: pain) Qty: 40 RF: 0 Continued amitriptyline 25 mg tablet 25 mg PO DAILY Qty: 90 RF: 3 carvedilol 6.25 mg tablet 6.25 mg PO DAILY Qty: 90 RF: 3 clonazepam 1 mg tablet 1 mg PO HS PRN (Reason: sleep) Qty: 30 RF: 1 colestipol 1 gram tablet 2 gm PO DAILY Qty: 180 RF: 3 docusate sodium 100 mg capsule 100 mg PO BID Qty: 60 RF: 0 ferrous sulfate 325 mg (65 mg iron) tablet 325 mg PO BID Qty: 60 RF: 0 potassium chloride [Klor-Con 10] 10 mEq tablet extended release 10 meq PO BID Qty: 180 RF: 3 levothyroxine 112 mcg capsule 112 mcg PO DAILY Qty: 90 RF: 3 lisinopril 40 mg tablet 40 mg PO DAILY Qty: 90 RF: 3 lorazepam 0.5 mg tablet 0.5 mg PO TID PRN (Reason: anxiety) Qty: 90 RF: 0 oxycodone 5 mg tablet 5 mg PO Q4H PRN (Reason: pain) Qty: 60 RF: 0 pantoprazole 40 mg tablet,delayed release (DR/EC) 40 mg PO BID Qty: 180 RF: 3 promethazine 25 mg tablet 25 mg PO Q6H PRN (Reason: nausea and vomiting) Qty: 30 RF: 0 cyanocobalamin (vitamin B-12) 1,000 mcg capsule 1,000 mcg PO DAILY Qty: 30 RF: 0 cholecalciferol (vitamin D3) 50,000 unit capsule 50,000 units PO WEEKLY Qty: 14 RF: 0 pramipexole 0.25 mg tablet 0.5 mg PO QPM RF: 0 furosemide 20 mg tablet 20 mg PO BID RF: 0 pramipexole 0.25 mg 0.25 mg PO DAILY PRN (Reason: Restless Leg(S)) RF: 0 warfarin 5 mg Tablet 2.5 mg PO FR RF: 0 warfarin 5 mg Tablet 5 mg PO SUMOTUWETHSA RF: 0 Admission Data Admit Date/Time: 03/17/21 17:33 Attending Provider: Bob Kelly Admit Provider: Bob Kelly Primary Care Provider: Tristan Conde Other Providers: John Tan Sabrina M.
[2021-03-21] MEDS: ACETAMINOPHEN 325 MG TAB PO SCH (08:41)
[2021-03-21] MEDS: AMITRIPTYLINE HCL 25 MG TAB PO SCH (08:42)
[2021-03-21] MEDS: CYANOCOBALAMIN 500 MCG TABLET (VITAMIN B-12) PO SCH (08:43)
[2021-03-21] MEDS: COLESTIPOL HCL 1 GM TAB PO SCH (08:43)
[2021-03-21] MEDS: DOCUSATE SODIUM 100 MG CAP PO SCH (08:43)
[2021-03-21] MEDS: carvediloL 6.25 MG TAB PO SCH (08:43)
[2021-03-21] MEDS: FERROUS SULFATE 325 MG TAB PO SCH (08:44)
[2021-03-21] MEDS: LIDOCAINE 5% 1 PATCH TD SCH (08:44)
[2021-03-21] MEDS: FUROSEMIDE 20 MG TAB PO SCH (08:44)
[2021-03-21] MEDS: PANTOprazole 40 MG TAB PO SCH (08:45)
[2021-03-21] MEDS: POTASSIUM CHLORIDE 10 MEQ TABCR PO SCH (08:45)
[2021-03-21] MEDS: lisinopril 40 MG TAB PO SCH (08:45)
[2021-03-21] MEDS ORDERED: LOPERAMIDE HCL 2 MG CAP PO STA (11:39)
--- NOTE | 2021-03-21 12:57 | Hospitalist Progress Note ---
Date of Service March 21, 2021 Assessment & Plan (1) Sacroiliitis: Per ortho it appears that with her pathology is coming just superior to her previous fusion. Per my exam, dx consistent with sacroilitis. She is on pain medication that is working and she is moving better. Followup scheduled with Pain Management for back injections. Ambulating at her baseline. (2) IBS (irritable bowel syndrome): long-standing diarrhea, takes pepto bismol PRN. Educated on trying a lactose free diet. (3) History of DVT (deep vein thrombosis): Hx of DVT/PE 5 years ago. On emt intermediate anticoagulation due to significant family history of DVT/PE, history of elevated homocystine levels Coumadin has been held since admission in case need for OR - has been bridged with IV heparin during this time INR subtherapeutic at 1.2 today Plan to give 10mg coumadin today and then continue regular home regimen of 5mg daily until INR check on Tuesday Will bridge with SQ Lovenox 120mg BID during this time until INR is rechecked Further instruction per [facility] clinic Pt verbalized understanding of DC plan. (4) HTN (hypertension): BP controlled continue coreg/losartan (5) CKD (chronic kidney disease), stage III: Baseline cr 0.8-1.0 Bun/cr stable, monitor (6) Anemia: H&H stable at 10.0 and 31.1 Continue iron supplement (7) JOSE (generalized anxiety disorder): Continue as needed lorazepam, may also aid in muscle relaxation (8) DVT prophylaxis: Dispo: to home PCP: Elton Full code [facility] Admission and Anticipated Discharge Date Admission Date: March 17, 2021 Subjective Feels better overall Some diarrhea this morning which is a chronic issue for her. She reports taking high doses of Pepto-Bismol Guided her on trying an elimination diet-lactose free to start She verbalized understanding with intent to comply. Review of Systems Review of Systems: All systems reviewed & are unremarkable except as noted in Subjective pain still present but improved since admission she is ambulating well Physical Exam Physical Exam: CONSTITUTIONAL: obese, vitals as above, generally well- appearing EYES: normal conjunctivae, no scleral icterus ENT: external ear and nose normal, MMM RESPIRATORY: clear to auscultation bilaterally, no crackles, rales or wheezes, normal respiratory effort CARDIOVASCULAR: regular rate and rhythm, S1 and 2 heard without murmurs, gallops or rubs, no JVD, no peripheral edema GASTROINTESTINAL: soft, nontender, nondistended. MUSCULOSKELETAL: strength 5/5 throughout, head is normocephalic and atraumatic, TTP in left PSIS area of lower back , no gluteal tenderness and no left GTB TTP. Neg SLR tst on the right. SKIN: warm and dry NEUROLOGIC: CN 2-12 grossly intact, no sensory deficit, normal cognition, normal speech, no gross focal deficits. Results & Data Results & Data ([facility]) Vital Signs (Past 12 Hours) Vital Signs Temp Pulse Pulse Resp BP Pulse Ox 03/21/21 11:43 36.9 C 78 87 16 145/85 H 95 03/21/21 08:15 36.9 C 78 16 145/85 H 95 Medications Administered Current Inpatient Medications Acetaminophen (Acetaminophen 325 Mg Tab) 650 mg PO QID DOMINIQUE Stop: 04/17/21 12:59 Last Admin: 03/21/21 08:41 Dose: 650 mg Documented by: Amitriptyline HCl (Amitriptyline Hcl 25 Mg Tab) 25 mg PO DAILY DOMINIQUE Stop: 04/17/21 08:59 Last Admin: 03/21/21 08:42 Dose: 25 mg Documented by: Carvedilol (Carvedilol 6.25 Mg Tab) 6.25 mg PO DAILY DOMINIQUE Stop: 04/17/21 08:59 Last Admin: 03/21/21 08:43 Dose: 6.25 mg Documented by: Clonazepam (Clonazepam 1 Mg Tab) 1 mg PO HS PRN PRN Reason: sleep Stop: 04/16/21 21:31 Last Admin: 03/18/21 23:13 Dose: 1 mg Documented by: Colestipol HCl (Colestipol Hcl 1 Gm Tab) 2 gm PO DAILY DOMINIQUE Stop: 04/17/21 08:59 Last Admin: 03/21/21 08:43 Dose: 2 gm Documented by: Cyanocobalamin (Cyanocobalamin 500 Mcg Tablet (Vitamin B-12)) 1,000 mcg PO DAILY DOMINIQUE Stop: 04/17/21 08:59 Last Admin: 03/21/21 08:43 Dose: 1,000 mcg Documented by: Docusate Sodium (Docusate Sodium 100 Mg Cap) 100 mg PO BID DOMINIQUE Stop: 04/17/21 08:59 Last Admin: 03/21/21 08:43 Dose: 100 mg Documented by: Enoxaparin Sodium (Enoxaparin Inj 120 Mg/0.8 Ml Syr) 120 mg SQ Q12H DOMINIQUE Stop: 04/19/21 17:59 Last Admin: 03/21/21 06:14 Dose: 120 mg Documented by: Enoxaparin Sodium (Enoxaparin Inj 120 Mg/0.8 Ml Syr) 120 mg SQ BID Stop: 03/21/21 23:59 Ergocalciferol (Ergocalciferol 50,000 Units 1250 Mcg Cap) 50,000 units PO Lam DOMINIQUE Stop: 04/21/21 08:59 Ferrous Sulfate (Ferrous Sulfate 325 Mg Tab) 325 mg PO BID DOMINIQUE Stop: 04/17/21 08:59 Last Admin: 03/21/21 08:44 Dose: 325 mg Documented by: Furosemide (Furosemide 20 Mg Tab) 20 mg PO BID17 DOMINIQUE Stop: 04/17/21 08:59 Last Admin: 03/21/21 08:44 Dose: 20 mg Documented by: Hydromorphone HCl (Hydromorphone Hcl 2 Mg Tab) 2 mg PO Q3H PRN PRN Reason: Pain Stop: 03/31/21 17:18 Last Admin: 03/21/21 11:56 Dose: 2 mg Documented by: Hydromorphone HCl (Hydromorphone Inj 0.5 Mg/0.5 Ml Syr) 0.5 mg IV Q1H PRN PRN Reason: Pain Stop: 04/01/21 21:44 Last Admin: 03/19/21 22:03 Dose: 0.5 mg Documented by: Levothyroxine Sodium (Levothyroxine Sodium 112 Mcg Tablet) 112 mcg PO DAILYBB DOMINIQUE Stop: 04/17/21 06:29 Last Admin: 03/21/21 06:13 Dose: 112 mcg Documented by: Lidocaine (Lidocaine 5% 1 Patch) 1 patch TD DAILY DOMINIQUE Stop: 04/17/21 04:29 Last Admin: 03/21/21 08:44 Dose: 1 patch Documented by: Lisinopril (Lisinopril 40 Mg Tab) 40 mg PO DAILY DOMINIQUE Stop: 04/17/21 08:59 Last Admin: 03/21/21 08:45 Dose: 40 mg Documented by: Lorazepam (Lorazepam 0.5 Mg Tab) 0.5 mg PO TID PRN PRN Reason: anxiety Stop: 04/16/21 21:31 Last Admin: 03/20/21 21:39 Dose: 0.5 mg Documented by: Miscellaneous (Remove Lidoderm Patch) 1 ea N/A DAILY@2100 [facility] Stop: 04/17/21 16:59 Last Admin: 03/20/21 21:40 Dose: 1 ea Documented by: Ondansetron HCl (Ondansetron Inj 2 Mg/Ml 2 Ml Vial) 4 mg IV Q6H PRN PRN Reason: Nausea/Vomiting Stop: 04/16/21 17:12 Last Admin: 03/18/21 16:46 Dose: 4 mg Documented by: Oxycodone HCl (Oxycodone Hcl Ir 5 Mg Tab (Immediate Release)) 5 mg PO Q4H PRN PRN Reason: pain Stop: 03/31/21 21:45 Last Admin: 03/20/21 13:09 Dose: 5 mg Documented by: Pantoprazole Sodium (Pantoprazole 40 Mg Tab) 40 mg PO BID [facility] Stop: 04/17/21 08:59 Last Admin: 03/21/21 08:45 Dose: 40 mg Documented by: Potassium Chloride (Potassium Chloride 10 Meq Tabcr) 10 meq PO BID [facility] Stop: 04/17/21 08:59 Last Admin: 03/21/21 08:45 Dose: 10 meq Documented by: Pramipexole Dihydrochloride (Pramipexole Dihydrochlo 0.25 Mg Tab) 0.25 mg PO DAILY PRN PRN Reason: Restless Leg(S) Stop: 04/16/21 23:11 Last Admin: 03/20/21 07:28 Dose: 0.25 mg Documented by: Pramipexole Dihydrochloride (Pramipexole Dihydrochlo 0.5 Mg Tab) 0.5 mg PO QPM [facility] Stop: 04/17/21 20:59 Last Admin: 03/20/21 21:40 Dose: 0.5 mg Documented by: Promethazine HCl (Promethazine Hcl 25 Mg Tab) 25 mg PO Q6H PRN PRN Reason: nausea and vomiting Stop: 04/16/21 21:31 Last Admin: 03/18/21 12:00 Dose: 25 mg Documented by:
[2021-03-22] MEDS ORDERED: ERGOCALCIFEROL 50,000 UNITS 1250 MCG CAP PO SCH (09:00)
== END 2021-03-21 13:52 | disposition home or self-care (01) | DRG 552 ==
LOC: 3E 17:33

== ENCOUNTER 2022-01-18 14:57 | Inpatient (IN) ==
[2022-01-18 15:45] LABS: Eosinophils # (auto) 0.09 K/uL (0-0.5); Eosinophils % (auto) 2.2 %; Hematocrit (blood only) 28.3 % (37-47); Hemoglobin 8.7 g/dL (12.0-16.0); Lymphocytes # (auto) 0.95 K/uL (1.2-3.4); Lymphocytes % (auto) 23.3 %; Mean Corpuscular Hgb Conc 30.7 g/dL (32-36); Mean Corpuscular Volume 81.3 fL (80-100); Mean Platelet Volume 11.1 fL (7.4-10.4); Monocytes # (auto) 0.44 K/uL (0.11-0.59); Monocytes % (auto) 10.8 %; Neutrophils % (auto) 63.7 %; Platelet Count 183 K/uL (130-400); RDW Coefficient of Variation 17.3 % (11.5-14.5); Red Blood Count 3.48 M/uL (4.2-5.4); White Blood Count 4.08 K/uL (4.8-10.8)
[2022-01-18 16:03] LABS: INR 1.2 (0.9-1.1); Prothrombin Time 12.9 Seconds (9.0-12.0)
[2022-01-18 16:13] LABS: Troponin I 0.03 ng/ml (0-0.04)
[2022-01-18 16:15] LABS: Albumin Globulin Ratio 1.3 (0.9-2); Albumin Level 3.7 gm/dl (3.4-5.0); BUN Creatinine Ratio 17.9 (10-20); Bilirubin,Total 0.4 mg/dl (0.2-1.0); Calcium 9.4 mg/dl (8.5-10.1); Creatinine Clr Calc Pharmacy 58.5 ml/min; Est GFR (African American) 66.5 ml/min; Est GFR (Non-African American) 57.4 ml/min; Globulin 2.8 gm/dl (2.5-4.0); Magnesium 1.7 mg/dl (1.7-2.4); Potassium 3.9 mmol/L (3.5-5.1); Total Protein 6.5 gm/dl (6.0-8.3)
--- NOTE | 2022-01-18 16:49 | XRay Report ---
XR chest 1V portable CLINICAL HISTORY: Chest Pain. COMPARISON STUDY: 01/11/2022 TECHNIQUE: 1 view of the chest FINDINGS: Single frontal view of the chest demonstrates the heart to again be enlarged. There is a decreased in spiratory effort with elevation of the hemidiaphragms and crowding of the bronchovascular markings at the lung bases and centrally. There is suspicion of mild central vascular congestion as well. There is no evidence for pleural effusion. No alveolar opacities are identified. There is no acute osseous pathology. IMPRESSION: 1. Decreased inspiration with evidence for mild central vascular congestion. ACT 112: Negative or not required by law. Electronically signed by: Ajay Gunn M.D. 01/18/2022 4:48 PM
[2022-01-18] MEDS ORDERED: FUROSEMIDE 40 MG/4 ML VIAL IV ONE (17:37)
--- NOTE | 2022-01-18 17:50 | History & Physical Report ---
Date of Service January 18, 2022 Assessment & Plan (1) CHF (congestive heart failure): Plan: - Admit to tele - Echo was recently c as an outpatient on 01/13 showing diastolic dysfunction, LVEF 50 to 55%, new wall motion abnormalities in inferior lateral regions - concern recent change has caused worsening hear function leading to increased edema, moderate mitral regurg-no need to repeat at this time. Patient mentions having possible outpatient cath on 01/25? - Consult cardiology to further determine if cardiac cath required at this time - Negative troponin - Failure of outpatient increase of diuretics- was on lasix 40 mg daily and increased to 80 mg daily however no significant improvement. - BNP elevated minimally at 220 - Cont lasix 40 mg BID IV, strict I/Os, daily weights, continue purwick in place (2) Chronic anticoagulation: Plan: - Hx of DVT, continue coumadin at 5 mg daily except 2.5 mg on Fridays - subtherapeutic INR of 1.2 on arrival, will bridge with lovenox 1mg/kg - trend with am labs - Concern for PE/DVT with subtherapeutic INR, will check doppler of the legs and if positive will get CTPE. (3) Hypothyroidism: Plan: - Cont levothyroxine (4) HTN (hypertension): Plan: - Continue coreg 6.25 daily, lisinopril 40 mg daily (5) Anemia: Plan: - Pt no longer taking iron tabs, hgb is 8.7, no known signs of bleeding per the patient - Consider hematology involvement (6) CKD (chronic kidney disease), stage III: Plan: - Cr and BUN are stable currently (7) Restless leg syndrome: Plan: - Continue mirapex (8) Cellulitis: Plan: - Will start on doxycycline BID, wound care nurse, likely to improve with diuresis as above - involves BLE from ankles to below the knee (9) Chronic venous insufficiency: Plan: - As above (10) JOSE (generalized anxiety disorder): Plan: Continue ativan, gabapentin, klonopin, as scheduled. (11) Morbid obesity with BMI of 50.0-59.9, adult: Plan: - BMI of 52.4, encourage diet and exercise once shortness of breath and fluid overload is improved. - Pt states has gained 90 lbs within the past year. Unknown how much of this is fluid presently DVT ppx: -lovenox bridge with coumadin, teds, scds CODE: Full code Dispo: From home, lives by herself, remain in the hospital x 2 day. History of Present Illness Primary Care Provider: Tristan Conde MD This is a 76 yo F with PMhx of HTN, diastolic CHF with recent echo on 01/13/22 showing new lateral inferolateral wall motion abnormality, Mitral regurg, history of DVT on Coumadin, CKD stage III, anemia, generalized anxiety disorder, venous stasis ulcers and restless legs, who presents with refractory edema and shortness of breath to the ER. She has been following with Dr. Cobb as an outpatient and she recently had an increase made in her Lasix to 40 mg twice daily up from only 40 mg daily, however has not seen significant improvement in her swelling. She has seen increased amounts of urination since increasing the Lasix, however does not notice an improvement in lower extremity edema. There are several ulcerations which are now weeping secondary to significant few fluid accumulation in her legs. She tells me that she is unaware of her dry weight, but states that in the past year she has gained 90 pounds, going from 201 to 292 today in the office. She reports that she is significantly short of breath today and was barely able to run the vacuum earlier. She does live at home by herself and typically can perform all ADLs without any difficulty. At baseline she does not require any supplemental O2, and previously did wear CPAP however reports she could not tolerate the mask. On last Tuesday she also notes that while getting herself dressed she felt a pop in her lower abdomen and reports that it is somewhat tender and sore over her suprapubic region. She has a scar status post hysterectomy 30 years ago where she is slightly more tender. She denies any changes in appetite, bowel habits, fluid intake, nausea or vomiting. Pt notes that she got an echo done within the past week, and was being scheduled to have a cardiac cath as outpatient on 01/25. She has underwent cardiac cath before 20 + years ago but did not have any stents placed. Allergies Allergy/AdvReac Type Severity Reaction Status Date / Time No Known Allergies Allergy Verified 01/18/22 16:08 Home Medications Medication Instructions Recorded Confirmed Type docusate sodium 100 mg capsule 100 mg PO BID #60 cap 07/03/19 01/18/22 Rx lorazepam 0.5 mg tablet 0.5 mg PO TID PRN #90 tab 07/03/19 01/18/22 Rx oxycodone 5 mg tablet 5 mg PO Q4H PRN #60 tab 07/03/19 01/18/22 Rx pantoprazole 40 mg tablet,delayed 40 mg PO BID #180 tab 07/03/19 01/18/22 Rx release potassium chloride 10 mEq 10 meq PO BID #180 tab 07/03/19 01/18/22 Rx tablet,extended release (Klor-Con) furosemide 20 mg tablet 20 mg PO BID 03/17/21 01/18/22 History pramipexole 0.25 mg tablet 0.5 mg PO QPM 03/17/21 01/18/22 History warfarin 5 mg tablet 2.5 mg PO WK 03/18/21 01/18/22 History warfarin 5 mg tablet 5 mg PO 6XWK 03/18/21 01/18/22 History amitriptyline 25 mg tablet 25 mg PO QAM 06/13/21 01/18/22 History carvedilol 6.25 mg tablet 6.25 mg PO QAM 06/13/21 01/18/22 History colestipol 1 gram tablet 2 gm PO BID 06/13/21 01/18/22 History levothyroxine 112 mcg capsule 112 mcg PO QAM 06/13/21 01/18/22 History gabapentin 100 mg capsule 300 mg PO TID 07/29/21 01/18/22 History lisinopril 40 mg tablet 40 mg PO QAM 10/12/21 01/18/22 History cholecalciferol (vitamin D3) 1,250 50,000 units PO WK 01/18/22 01/18/22 History mcg (50,000 unit) capsule Past Med/Surg History Medical History (Updated 01/18/22 @ 18:57 by Juany Manley PA-C) Anemia resolved per pt, blood transfusions "many yrs ago" unknown cause per pt; mild asymptomatic per nephrology 08/2021 note Chronic anticoagulation PE and long time warfarin CKD (chronic kidney disease), stage III Depression controlled, stable per pt JOSE (generalized anxiety disorder) controlled, stable per pt HTN (hypertension) controlled, stable per pt Hypothyroidism IBS (irritable bowel syndrome) Obesity NIKKI (obstructive sleep apnea) Intolerant to CPAP-no current treatment Peripheral neuropathy feet, uses rolling walker consistently Pulmonary embolism on warfarin, follows with anticoagulation clinic Vitamin D deficiency Surgical History (Updated 10/14/21 @ 14:08 by Shanti Peters PA-C) History of bilateral knee replacement History of cataract extraction right and left History of hysterectomy History of open reduction and internal fixation (ORIF) procedure right foot History of spinal fusion Hx of total shoulder replacement right and left Left reverse TSA 02/01/2018: LMA#4 + PNB. No issues per anesthesia progress note. S/P cardiac cath "2002 - normal coronaries" S/P cholecystectomy S/P left knee arthroscopy Family History Father Pulmonary embolism, Onset Age: 69 Stroke Mother , 93 Arthritis Hypertension Sister Breast cancer Social History Smoking Status: Never smoker Second Hand Exposure: No; Hx Alcohol Use: No Hx Substance Use: No Preferred Language: Dominican Communication Ability: Effective Visual Impairment: Limited Hearing Ability: Hard of Hearing Pickle Sorter Required: No Beliefs That Will Affect Care: None marital status: / Current Living Situation: Alone current occupational status: retired How many Children do You have: 2 How many Children do You have Comment: neither son is local, pt stated she has two sister in laws that assist with care as needed. She also has a niece that assists her frequently. Feels Safe at Home: Yes during the past year weight has: remained stable Assistive Devices: Glasses Review of Systems Review of Systems: Constitutional: No fever, sweats or chills Eyes: No diplopia, no worsening or blurred vision ENT: normal hearing, no trouble swallowing Respiratory: No cough, sputum, + shortness of breath, has some difficulty completing her sentences at bedside, + GAMINO Cardiovascular: No chest pain, tightness or palpitations, + chest heaviness Abdomen: + Soreness as per HPI, no pain, nausea, vomiting, diarrhea or constipation Musculoskeletal: No joint pain, calf pain, + diffuse swelling Neurologic: No weakness, numbness/tingling, or balance problems Psychiatric: + Anxiety, is asking for Ativan, no depression Skin: No rash or itch, weeping ulcerations over both lower legs Physical Exam Physical Exam: General: awake, alert, no apparent distress, morbidly obese with BMI of 52.4 Head: Normocephalic, atraumatic ENT: PERRL, EOMI, no pharyngeal exudate, mucous membranes moist Chest: Diminished breath sounds throughout due to body habitus however fairly clear to auscultation, on room air, take some breaths to finish sentences during my examination, no adventitious breath sounds Cardiac: Regular rate and rhythm, + 2/6 systolic murmur, no JVD, normal peripheral pulses, good capillary refill Abdominal: NABS x 4 quadrants, soft, nondistended, nontender to palpation, no rebound or guarding, tenderness over vertical scar from umbilicus to suprapubic region status post hysterectomy, no erythema, no bulging, no palpable hernia. Extremities: Diffuse edema, 1+ pitting, appears like lymphedema, + peripheral edema and mild erythema, some warmth, multiple small weeping ulcerations BLE, calfs nontender to palpation Psych: Anxious mood and affect Neuro: AAO x 3, strength intact bilaterally and rated 5/5, no motor deficits, speech is clear, no peripheral sensory deficits Results & Data Results & Data ([facility]) Vital Signs (Past 12 Hours) Vital Signs Temp Pulse Resp BP Pulse Ox 01/18/22 15:36 98 01/18/22 15:34 98 01/18/22 14:59 36.7 C 85 22 172/106 H 95 Laboratory Results 01/18/22 01/18/22 01/18/22 16:19 16:08 15:24 WBC RBC Hgb Hct MCV MCH MCHC RDW Std Deviation RDW Coeff of Bertha Plt Count MPV Immature Gran % (Auto) Neut % (Auto) Lymph % (Auto) [place] % (Auto) Eos % (Auto) Baso % (Auto) Neut # (Auto) Lymph # (Auto) [place] # (Auto) Eos # (Auto) Baso # (Auto) Immature Gran # (Auto) PT 12.9 H INR 1.2 H Sodium Potassium Chloride Carbon Dioxide Anion Gap BUN Creatinine Est Cr Clr Drug Dosing Est GFR ( Amer) Est GFR (Non-Af Amer) BUN/Creatinine Ratio Glucose Calcium Phosphorus Magnesium Total Bilirubin AST ALT Alkaline Phosphatase Troponin I B-Natriuretic Peptide 220 H Total Protein Albumin Globulin Albumin/Globulin Ratio Lipase SARS-CoV-2, RNA, NAAT NEGATIVE 01/18/22 01/18/22 15:24 15:24 WBC 4.08 L RBC 3.48 L Hgb 8.7 L Hct 28.3 L MCV 81.3 MCH 25.0 MCHC 30.7 L RDW Std Deviation 52.0 H RDW Coeff of Bertha 17.3 H Plt Count 183 MPV 11.1 H Immature Gran % (Auto) 0.0 Neut % (Auto) 63.7 Lymph % (Auto) 23.3 [place] % (Auto) 10.8 Eos % (Auto) 2.2 Baso % (Auto) 0.0 Neut # (Auto) 2.60 Lymph # (Auto) 0.95 L [place] # (Auto) 0.44 Eos # (Auto) 0.09 Baso # (Auto) 0.00 Immature Gran # (Auto) 0.00 PT INR Sodium 141 Potassium 3.9 Chloride 105 Carbon Dioxide 30 Anion Gap 6 BUN 17 Creatinine 0.95 Est Cr Clr Drug Dosing 58.5 Est GFR ( Amer) 66.5 Est GFR (Non-Af Amer) 57.4 BUN/Creatinine Ratio 17.9 Glucose 91 Calcium 9.4 Phosphorus 3.0 Magnesium 1.7 Total Bilirubin 0.4 AST 14 ALT 9 Alkaline Phosphatase 178 H Troponin I 0.03 B-Natriuretic Peptide Total Protein 6.5 Albumin 3.7 Globulin 2.8 Albumin/Globulin Ratio 1.3 Lipase 29 SARS-CoV-2, RNA, NAAT Diagnostic Findings Chest X-Ray 01/18/22 15:13 XR chest 1V portable CLINICAL HISTORY: Chest Pain. COMPARISON STUDY: 01/11/2022 TECHNIQUE: 1 view of the chest FINDINGS: Single frontal view of the chest demonstrates the heart to again be enlarged. There is a decreased inspiratory effort with elevation of the hemidiaphragms and crowding of the bronchovascular markings at the lung bases and centrally. There is suspicion of mild central vascular congestion as well. There is no evidence for pleural effusion. No alveolar opacities are identified. There is no acute osseous pathology. IMPRESSION: 1. Decreased inspiration with evidence for mild central vascular congestion. ACT 112: Negative or not required by law. Electronically signed by: Ajay Gunn M.D. 01/18/2022 4:48 PM ECG Additional Comments: 18-JAN-2022 15:08:55 [facility]-EDSTAT ROUTINE RETRIEVAL Sinus rhythm with Premature supraventricular complexes Right bundle branch block Abnormal ECG When compared with ECG of 18-MAR-2021 10:50, Premature supraventricular complexes are now Present 25mm/s10mm/[id number]: [id number] by: ED Unconfirmed Vent. rate 85 BPM SD interval 200 ms QRS duration 128 ms QT/QTc 396/471 ms Code Status & VTE Plan Code Status Full code - discussed with the pt at bedside Supervising Physician Co-Signing Physician Notes Attending Addendum: care coordinated with SYLVIA Hope please refer to her notes for full details, I agree with her notes patient seen and examined, records reviewed by myself as well on exam, patient seen resting in bed, not in distress On room air States she feels improved compared to admission Less short of breath No chest pain, no leg pain No fevers or chills no other symptoms VS noted and reviewed oriented x 3, not in distress, speaks in sentences with no effort nor accessory muscle use normal rate, regular rhythm, no murmurs Mild rales at the bases, no wheezing, good air entry bilaterally non distended, soft, nontender Still grade 2 lower extremity edema, with mild erythema, warmth, tenderness Open wounds of bilateral anterior lower legs, superficial, appear to be ruptured blisters no neuro deficits All labs noted and reviewed ASSESSMENT AND PLAN Acute exacerbation of chronic CHF, diastolic type Lasix 40 mg IV twice daily Consult cardiology Chronic anticoagulation with Coumadin secondary to history of PE/DVT INR 1.2 We will bridge Coumadin with therapeutic Lovenox every 12 hours Check Doppler ultrasound of the legs to rule out DVT Lower extremity edema Likely secondary to CHF, but rule out DVT We will also cover with doxycycline for possible cellulitis other diagnoses and plan of care as per SYLVIA Hope's notes Mitch Piña MD
--- NOTE | 2022-01-18 20:29 | Ultrasound Report ---
BILATERAL LOWER EXTREMITY VENOUS DOPPLER HISTORY: Acute pain and swelling of the lower legs r/o pe COMPARISON STUDY: None. FINDINGS: There is normal compressibility, flow, and augmentation within the bilateral lower extremit y deep venous systems. Limited visualization of the calf veins secondary to subcutaneous edema. The p eroneal veins are not diagnostically visualized. IMPRESSION: No DVT within the right or left lower extremity. ACT 112: Negative or not required by law. Electronically signed by: Emery Tillman M.D. 01/18/2022 8:28 PM
[2022-01-18] MEDS ORDERED: ONDANSETRON INJ 2 MG/ML 2 ML VIAL IV PRN (20:46)
[2022-01-18] MEDS ORDERED: WARFARIN SOD 5 MG TAB PO SCH (20:46)
[2022-01-18] MEDS ORDERED: ACETAMINOPHEN 325 MG TAB PO PRN (20:46)
--- NOTE | 2022-01-18 21:26 | Emergency Department Note ---
Impression & Plan Hypervolemia, Venous ulcers of both lower extremities, Dyspnea on minimal exertion ED Provider Note NAME: YEE MERIDA AGE: 76 SEX: F ARRIVES VIA: Walk-In INFORMANT: Patient ED PROVIDER(S): Reji Jackson MD CHIEF COMPLAINT: Edema, Referred. PLAN: Disposition: Admit MEDICAL DECISION MAKING: The patient is a pleasant 76-year-old woman with pmhx DVT/PE, venous insufficiency, HTN, neuropathy, CKD, anemia who presents to the emergency depar tment referred from her cardiology office for evaluation of shortness of breath/chest heaviness and persistent edema which has not responded to outpatient treatment despite increased Lasix to 40mg BiD. Patient reports she has superficial wounds to bilateral lower extremities which have been worse in the past but have persisted. She reports that her understanding was that she was to be admitted due to her failed outpatient management. She also explains that she had an abnormal cardiac echocardiogram recently and has a scheduled cardiac catheterization on February 25. Otherwise she denies fevers, chills, cough, congestion, GI or symptoms. On arrival the patient is no acute distress, afebrile with stable vital signs. She does appear hypervolemic. She has 3+ edema bilateral lower extremities with superficial wounds of bilateral pretibial surfaces. EKG without overt acute ischemia. CXR with mild vascular congestion. WBC, 4K, nonspecific. H/H similar to prior. Platelets wnl. Chemistry without acidosis. Electrolytes unremarkable. LFTs without significant abnormality. Troponin 0.03 wnl. BNP 220 approximate to recent value. Lipase wnl. Covid-19 RNA, NAAT negative. Patient agrees with plan for admission. Treatment initiated with IV lasix. Case discussed with Lili Kaur PAC, with Dr. Wang Pearson hospitalist who will evaluate the patient for admission. Triage Nursing notes reviewed and agree them. Prior medical records reviewed Vital Signs: reviewed and remarkable for no significant abnormalities Differential diagnosis: Reactive airway disease, pneumonia, pneumothorax, COPD, CHF, infections, cardiac ischemia, pulmonary embolism, musculoskeletal, gastrointestinal, as well as other pathologies. ER treatment provided: See below. Diagnostics interpreted by me: ECG: Sinus rhythm, 85 bpm, psvcs, RBBB, no overt ST elevation or depression. Cardiac Monitoring: An order for continuous cardiac monitoring was placed and demonstrated sinus rhythm, 85 bpm, psvcs. Laboratory studies: See below Imaging studies: See below Consultation(s): Lili Kaur PAC, with Dr. Wang Pearson hospitalist who will evaluate the patient for admission. HPI: The patient is a pleasant 76-year-old woman with pmhx DVT/PE, venous insufficiency, HTN, neuropathy, CKD, anemia who presents to the emergency department referred from her cardiology office for evaluation of shortness of breath and persistent edema which has not responded to outpatient treatment despite increased Lasix to 40mg BiD. Patient reports she has superficial wounds to bilateral lower extremities which have been worse in the past but have persisted. She reports that her understanding was that she was to be admitted due to her failed outpatient management. She also explains that she had an abnormal cardiac echocardiogram recently and has a scheduled cardiac catheterization on February 25. Otherwise she denies fevers, chills, cough, congestion, GI or symptoms. ROS: See above HPI for pertinent positives & negatives. A total of 10 systems reviewed and were otherwise negative. VITALS:See Below PHYSICAL EXAMINATION: GENERAL: Awake, alert, fatigued-appearing, in no distress HENT: Normocephalic, atraumatic. Oropharynx unremarkable. EYES: Normal conjunctiva. Sclera non-icteric. NECK: Supple. No nuchal rigidity. FROM. No JVD. RESPIRATORY: Clear to auscultation. CARDIAC: Regular rate, normal rhythm. Extremities warm and well perfused. Pulses equal. ABDOMEN: Soft, non-distended. No tenderness to palpation. No rebound or guarding. No masses. RECTAL: Deferred. MUSCULOSKELETAL: Chest examination reveals no tenderness. The back is symmetrical on inspection without obvious abnormality. There is no CVA tenderness to palpation. No joint edema. LOWER EXTREMITIES: 3+ edema bilateral lower extremities with superficial wounds of bilateral pretibial surfaces. NEURO: Normal sensorium. No sensory or motor deficits noted. SKIN: No rash or jaundice noted. Reji Jackson MD Past Med/Surg History Medical History Anemia resolved per pt, blood transfusions "many yrs ago" unknown cause per pt; mild asymptomatic per nephrology 08/2021 note Chronic anticoagulation PE and long time warfarin CKD (chronic kidney disease), stage III Depression controlled, stable per pt JOSE (generalized anxiety disorder) controlled, stable per pt HTN (hypertension) controlled, stable per pt Hypothyroidism IBS (irritable bowel syndrome) Obesity NIKKI (obstructive sleep apnea) Intolerant to CPAP-no current treatment Peripheral neuropathy feet, uses rolling walker consistently Pulmonary embolism on warfarin, follows with anticoagulation clinic Vitamin D deficiency Surgical History History of bilateral knee replacement History of cataract extraction right and left History of hysterectomy History of open reduction and internal fixation (ORIF) procedure right foot History of spinal fusion Hx of total shoulder replacement right and left Left reverse TSA 02/01/2018: LMA#4 + PNB. No issues per anesthesia progress note. S/P cardiac cath "2002 - normal coronaries" S/P cholecystectomy S/P left knee arthroscopy Family History Father Pulmonary embolism, Onset Age: 69 Stroke Mother , 93 Arthritis Hypertension Sister Breast cancer Social History Smoking Status: Unknown if ever smoked Second Hand Exposure: No; Hx Alcohol Use: No Hx Substance Use: No Preferred Language: Azerbaijani Communication Ability: Effective Visual Impairment: Limited Hearing Ability: Hard of Hearing Video Game Technician Required: No Beliefs That Will Affect Care: None marital status: / Current Living Situation: Alone current occupational status: retired How many Children do You have: 2 How many Children do You have Comment: neither son is local, pt stated she has two sister in laws that assist with care as needed. She also has a niece that assists her frequently. Other Information That Helps Us Care for You: No Feels Safe at Home: Yes Safety Concerns: Feels Safe At This Time during the past year weight has: remained stable Assistive Devices: Glasses and Walker Allergies Allergies Allergy/AdvReac Type Severity Reaction Status Date / Time No Known Allergies Allergy Verified 01/18/22 16:08 Home Meds Home Medications Medication Instructions Recorded Confirmed furosemide 20 mg tablet 20 mg PO BID 03/17/21 01/18/22 pramipexole 0.25 mg tablet 0.5 mg PO QPM 03/17/21 01/18/22 warfarin 5 mg tablet 2.5 mg PO WK 03/18/21 01/18/22 warfarin 5 mg tablet 5 mg PO [id number] 03/18/21 01/18/22 amitriptyline 25 mg tablet 25 mg PO QAM 06/13/21 01/18/22 carvedilol 6.25 mg tablet 6.25 mg PO QAM 06/13/21 01/18/22 colestipol 1 gram tablet 2 gm PO BID 06/13/21 01/18/22 levothyroxine 112 mcg capsule 112 mcg PO QAM 06/13/21 01/18/22 gabapentin 100 mg capsule 300 mg PO TID 07/29/21 01/18/22 lisinopril 40 mg tablet 40 mg PO QAM 10/12/21 01/18/22 cholecalciferol (vitamin D3) 1,250 50,000 units PO WK 01/18/22 01/18/22 mcg (50,000 unit) capsule Previous Rx's Medication Instructions Recorded docusate sodium 100 mg capsule 100 mg PO BID #60 cap 07/03/19 lorazepam 0.5 mg tablet 0.5 mg PO TID PRN #90 tab 07/03/19 oxycodone 5 mg tablet 5 mg PO Q4H PRN #60 tab 07/03/19 pantoprazole 40 mg tablet,delayed 40 mg PO BID #180 tab 07/03/19 release potassium chloride 10 mEq 10 meq PO BID #180 tab 07/03/19 tablet,extended release (Klor-Con) Results & Data (ED) Vital Signs Vital Signs - 24 hr 01/18/22 14:59 01/18/22 15:14 01/18/22 15:30 Temperature 36.7 C Temperature Source Temporal Artery Scan Pulse Rate 85 76 Pulse Rate [Apical] Pulse Rate from SpO2 Sensor 80 Pulse Rhythm [Apical] Pulse Strength [Apical] Respiratory Rate 22 15 Respiratory Effort / Characteristics Non-Labored Spontaneous Labored Respiratory Depth Normal Normal Respiratory Pattern Regular Blood Pressure 172/106 H 155/86 H Blood Pressure [Left Arm] Blood Pressure Mean 128 109 Blood Pressure Mean [Left Arm] Blood Pressure Position [Left Arm] Pulse Oximetry 95 91 Oxygen Delivery Method Room Air Room Air Sepsis Recent Fever Within 48 Hours No Sepsis New/Unexplained Change in Mental Status No Sepsis Action Taken by Nursing No Action Required 01/18/22 15:34 01/18/22 15:36 01/18/22 16:00 Temperature Temperature Source Pulse Rate 96 H Pulse Rate [Apical] Pulse Rate from SpO2 Sensor Pulse Rhythm [Apical] Pulse Strength [Apical] Respiratory Rate 20 Respiratory Effort / Characteristics Respiratory Depth Respiratory Pattern Blood Pressure 136/106 H Blood Pressure [Left Arm] Blood Pressure Mean 116 Blood Pressure Mean [Left Arm] Blood Pressure Position [Left Arm] Pulse Oximetry 98 98 96 Oxygen Delivery Method Room Air Room Air Room Air Sepsis Recent Fever Within 48 Hours Sepsis New/Unexplained Change in Mental Status Sepsis Action Taken by Nursing 01/18/22 16:30 01/18/22 16:31 01/18/22 17:00 Temperature Temperature Source Pulse Rate 92 H 113 H 90 Pulse Rate [Apical] Pulse Rate from SpO2 Sensor Pulse Rhythm [Apical] Pulse Strength [Apical] Respiratory Rate 20 26 H 19 Respiratory Effort / Characteristics Respiratory Depth Respiratory Pattern Blood Pressure 177/104 H 177/104 H 174/90 H Blood Pressure [Left Arm] Blood Pressure Mean 128 128 118 Blood Pressure Mean [Left Arm] Blood Pressure Position [Left Arm] Pulse Oximetry 97 97 97 Oxygen Delivery Method Room Air Room Air Room Air Sepsis Recent Fever Within 48 Hours Sepsis New/Unexplained Change in Mental Status Sepsis Action Taken by Nursing 01/18/22 17:46 01/18/22 17:48 Temperature Temperature Source Pulse Rate Pulse Rate [Apical] 81 Pulse Rate from SpO2 Sensor 89 Pulse Rhythm [Apical] Regular Pulse Strength [Apical] Normal Respiratory Rate 21 20 Respiratory Effort / Characteristics Respiratory Depth Normal Respiratory Pattern Blood Pressure 157/79 H Blood Pressure [Left Arm] 157/79 H Blood Pressure Mean 105 Blood Pressure Mean [Left Arm] 105 Blood Pressure Position [Left Arm] Lying Pulse Oximetry 93 93 Oxygen Delivery Method Room Air Room Air Sepsis Recent Fever Within 48 Hours Sepsis New/Unexplained Change in Mental Status Sepsis Action Taken by Nursing Laboratory Data Attestation: I reviewed the patient's lab results. Result diagrams: 01/18/22 15:24 01/18/22 15:24 Lab Results 01/18/22 01/18/22 01/18/22 Range/Units 15:24 15:24 15:24 WBC 4.08 L (4.8-10.8) K/uL RBC 3.48 L (4.2-5.4) M/uL Hgb 8.7 L (12.0-16.0) g/dL Hct 28.3 L (37-47) % MCV 81.3 (80-100) fL MCH 25.0 (25-34) pg MCHC 30.7 L (32-36) g/dL RDW Std Deviation 52.0 H (36.4-46.3) fL RDW Coeff of Bertha 17.3 H (11.5-14.5) % Plt Count 183 (130-400) K/uL MPV 11.1 H (7.4-10.4) fL Immature Gran % (Auto) 0.0 % Neut % (Auto) 63.7 % Lymph % (Auto) 23.3 % Guthrie % (Auto) 10.8 % Eos % (Auto) 2.2 % Baso % (Auto) 0.0 % Neut # (Auto) 2.60 (1.4-6.5) K/uL Lymph # (Auto) 0.95 L (1.2-3.4) K/uL Guthrie # (Auto) 0.44 (0.11-0.59) K/uL Eos # (Auto) 0.09 (0-0.5) K/uL Baso # (Auto) 0.00 (0-0.2) K/uL Immature Gran # (Auto) 0.00 (0.00-0.02) K/uL PT 12.9 H (9.0-12.0) Seconds INR 1.2 H (0.9-1.1) Sodium 141 (136-145) mmol/L Potassium 3.9 (3.5-5.1) mmol/L Chloride 105 (98-107) mmol/L Carbon Dioxide 30 (21-32) mmol/L Anion Gap 6 (3-11) BUN 17 (6-23) mg/dl Creatinine 0.95 (0.6-1.2) mg/dl Est Cr Clr Drug Dosing 58.5 ml/min Est GFR ( Amer) 66.5 ml/min Est GFR (Non-Af Amer) 57.4 ml/min BUN/Creatinine Ratio 17.9 (10-20) Glucose 91 (70-99(Fasting)) mg/dl Calcium 9.4 (8.5-10.1) mg/dl Phosphorus 3.0 (2.5-4.9) mg/dl Magnesium 1.7 (1.7-2.4) mg/dl Total Bilirubin 0.4 (0.2-1.0) mg/dl AST 14 (13-39) U/L ALT 9 (7-52) U/L Alkaline Phosphatase 178 H (34-104) U/L Troponin I 0.03 (0-0.04) ng/ml B-Natriuretic Peptide (0-100) pg/ml Total Protein 6.5 (6.0-8.3) gm/dl Albumin 3.7 (3.4-5.0) gm/dl Globulin 2.8 (2.5-4.0) gm/dl Albumin/Globulin Ratio 1.3 (0.9-2) Lipase 29 (11-82) U/L SARS-CoV-2, RNA, NAAT (NEGATIVE) 01/18/22 01/18/22 Range/Units 16:08 16:19 WBC (4.8-10.8) K/uL RBC (4.2-5.4) M/uL Hgb (12.0-16.0) g/dL Hct (37-47) % MCV (80-100) fL MCH (25-34) pg MCHC (32-36) g/dL RDW Std Deviation (36.4-46.3) fL RDW Coeff of Bertha (11.5-14.5) % Plt Count (130-400) K/uL MPV (7.4-10.4) fL Immature Gran % (Auto) % Neut % (Auto) % Lymph % (Auto) % Guthrie % (Auto) % Eos % (Auto) % Baso % (Auto) % Neut # (Auto) (1.4-6.5) K/uL Lymph # (Auto) (1.2-3.4) K/uL Guthrie # (Auto) (0.11-0.59) K/uL Eos # (Auto) (0-0.5) K/uL Baso # (Auto) (0-0.2) K/uL Immature Gran # (Auto) (0.00-0.02) K/uL PT (9.0-12.0) Seconds INR (0.9-1.1) Sodium (136-145) mmol/L Potassium (3.5-5.1) mmol/L Chloride (98-107) mmol/L Carbon Dioxide (21-32) mmol/L Anion Gap (3-11) BUN (6-23) mg/dl Creatinine (0.6-1.2) mg/dl Est Cr Clr Drug Dosing ml/min Est GFR ( Amer) ml/min Est GFR (Non-Af Amer) ml/min BUN/Creatinine Ratio (10-20) Glucose (70-99(Fasting)) mg/dl Calcium (8.5-10.1) mg/dl Phosphorus (2.5-4.9) mg/dl Magnesium (1.7-2.4) mg/dl Total Bilirubin (0.2-1.0) mg/dl AST (13-39) U/L ALT (7-52) U/L Alkaline Phosphatase (34-104) U/L Troponin I (0-0.04) ng/ml B-Natriuretic Peptide 220 H (0-100) pg/ml Total Protein (6.0-8.3) gm/dl Albumin (3.4-5.0) gm/dl Globulin (2.5-4.0) gm/dl Albumin/Globulin Ratio (0.9-2) Lipase (11-82) U/L SARS-CoV-2, RNA, NAAT NEGATIVE (NEGATIVE) Administered Medications Amitriptyline HCl (Amitriptyline Hcl 25 Mg Tab) 25 mg PO HS DOMINIQUE Stop: 02/17/22 20:59 Last Admin: 01/18/22 23:03 Dose: 25 mg Documented by: [id number] Colestipol HCl (Colestipol Hcl 1 Gm Tab) 2 gm PO 1000,2200 DOMINIQUE Stop: 02/17/22 21:59 Last Admin: 01/19/22 00:21 Dose: 2 gm Documented by: [id number] Docusate Sodium (Docusate Sodium 100 Mg Cap) 100 mg PO BID DOMINIQUE Stop: 02/17/22 20:59 Last Admin: 01/18/22 22:13 Dose: 100 mg Documented by: [id number] Doxycycline Hyclate (Doxycycline Hyclate 50 Mg Cap) 50 mg PO BID DOMINIQUE Stop: 01/25/22 20:59 Last Admin: 01/18/22 23:02 Dose: 50 mg Documented by: [id number] Enoxaparin Sodium (Enoxaparin Inj 120 Mg/0.8 Ml Syr) 120 mg SQ Q12H DOMINIQUE Stop: 02/17/22 19:59 Last Admin: 01/18/22 23:04 Dose: 120 mg Documented by: [id number] Gabapentin (Gabapentin 300 Mg Cap) 300 mg PO TID DOMINIQUE Stop: 02/17/22 20:59 Last Admin: 01/18/22 22:12 Dose: 300 mg Documented by: [id number] Lorazepam (Lorazepam 0.5 Mg Tab) 0.5 mg PO TID PRN PRN Reason: anxiety Stop: 02/17/22 18:41 Last Admin: 01/18/22 22:13 Dose: 0.5 mg Documented by: [id number] Oxycodone HCl (Oxycodone Hcl Ir 5 Mg Tab (Immediate Release)) 5 mg PO Q4H PRN PRN Reason: pain Stop: 02/01/22 18:41 Last Admin: 01/18/22 22:13 Dose: 5 mg Documented by: [id number] Pantoprazole Sodium (Pantoprazole 40 Mg Tab) 40 mg PO BID DOMINIQUE Stop: 02/17/22 20:59 Last Admin: 01/18/22 22:14 Dose: 40 mg Documented by: [id number] Potassium Chloride (Potassium Chloride 10 Meq Tabcr) 10 meq PO BID DOMINIQUE Stop: 02/17/22 20:59 Last Admin: 01/18/22 22:14 Dose: 10 meq Documented by: [id number] Pramipexole Dihydrochloride (Pramipexole Dihydrochlo 0.25 Mg Tab) 0.5 mg PO QPM DOMINIQUE Stop: 02/17/22 20:59 Last Admin: 01/18/22 23:03 Dose: 0.5 mg Documented by: [id number] Warfarin Sodium (Warfarin Sod 5 Mg Tab) 5 mg PO [id number] [facility] Stop: 02/17/22 20:45 Last Admin: 01/18/22 22:13 Dose: 5 mg Documented by: [id number] Discontinued Medications Furosemide (Furosemide 40 Mg/4 Ml Vial) 40 mg IV ONE ONE Stop: 01/18/22 17:38 Last Admin: 01/18/22 17:46 Dose: 40 mg Documented by: [id number] Morphine Sulfate (Morphine Sulfate 2 Mg/Ml Carp) 2 mg IV NOW STA Stop: 01/18/22 23:41 Last Admin: 01/18/22 23:56 Dose: Not Given Documented by: [id number] Morphine Sulfate (Morphine Sulfate 2 Mg/Ml Carp) Confirm Administered Dose 2 mg .ROUTE .STK-MED ONE Stop: 01/18/22 23:49 Last Admin: 01/18/22 23:50 Dose: 2 mg Documented by: [id number] Imaging Data Radiologist's Impression: Chest X-Ray 01/18/22 15:13 XR chest 1V portable CLINICAL HISTORY: Chest Pain. COMPARISON STUDY: 01/11/2022 TECHNIQUE: 1 view of the chest FINDINGS: Single frontal view of the chest demonstrates the heart to again be enlarged. There is a decreased inspiratory effort with elevation of the hemidiaphragms and crowding of the bronchovascular markings at the lung bases and centrally. There is suspicion of mild central vascular congestion as well. There is no evidence for pleural effusion. No alveolar opacities are identified. There is no acute osseous pathology. IMPRESSION: 1. Decreased inspiration with evidence for mild central vascular congestion. ACT 112: Negative or not required by law. Electronically signed by: Ajay Gunn M.D. 01/18/2022 4:48 PM Discharge Plan Visit Data Chief Complaint: Shortness of Breath/Dyspnea Stated Complaint: SOB, SWOLLEN EXTREMETIES ED Provider: Reji Jackson Discharge Problem: Hypervolemia, Venous ulcers of both lower extremities, Dyspnea on minimal exertion Patient Disposition: Admitted As Inpatient Discharge Instructions Interventions: ED Discharge Assessment Last Done: 01/18/22 19:18 Discharge Problem: Hypervolemia Qualifiers: Hypervolemia type: unspecified Qualified Code(s): E87.70 - Fluid overload, unspecified
[2022-01-18] MEDS: GABAPENTIN 300 MG CAP PO SCH (22:12)
[2022-01-18] MEDS: oxyCODONE HCL IR 5 MG TAB (IMMEDIATE RELEASE) PO PRN (22:13)
[2022-01-18] MEDS: LORazepam 0.5 MG TAB PO PRN (22:13)
[2022-01-18] MEDS: DOCUSATE SODIUM 100 MG CAP PO SCH (22:13)
[2022-01-18] MEDS: POTASSIUM CHLORIDE 10 MEQ TABCR PO SCH (22:14)
[2022-01-18] MEDS: PANTOprazole 40 MG TAB PO SCH (22:14)
[2022-01-18] MEDS: DOXYCYCLINE HYCLATE 50 MG CAP PO SCH (23:02)
[2022-01-18] MEDS: PRAMIPEXOLE DIHYDROCHLO 0.25 MG TAB PO SCH (23:03)
[2022-01-18] MEDS: AMITRIPTYLINE HCL 25 MG TAB PO SCH (23:03)
[2022-01-18] MEDS: ENOXAPARIN INJ 120 MG/0.8 ML SYR SQ SCH (23:04)
--- NOTE | 2022-01-18 23:33 | Electrocardiogram Report ---
Test Reason : Blood Pressure : / mmHG Vent. Rate : 085 BPM Atrial Rate : 085 BPM P-R Int : 200 ms QRS Dur : 128 ms QT Int : 396 ms P-R-T Axes : 071 037 -16 degrees QTc Int : 471 ms Sinus rhythm with Premature supraventricular complexes Right bundle branch block Abnormal ECG When compared with ECG of 18-MAR-2021 10:50, Premature supraventricular complexes are now Present Confirmed by Claudio Perez ([id number]) on 01/18/2022 11:33:28 PM Referred By: ED Confirmed By:Claudio ePrez
[2022-01-18] MEDS ORDERED: MoRPHine SULFATE 2 MG/ML CARP IV STA (23:40)
[2022-01-18] MEDS ORDERED: MoRPHine SULFATE 2 MG/ML CARP ONE (23:48)
[2022-01-19] MEDS: COLESTIPOL HCL 1 GM TAB PO SCH ×3 (00:21→22:02)
[2022-01-19] MEDS: LEVOTHYROXINE SODIUM 112 MCG TABLET PO SCH (06:26)
[2022-01-19] MEDS: oxyCODONE HCL IR 5 MG TAB (IMMEDIATE RELEASE) PO PRN (06:29)
[2022-01-19] MEDS: carvediloL 6.25 MG TAB PO SCH (08:11)
[2022-01-19] MEDS: lisinopril 40 MG TAB PO SCH (08:11)
[2022-01-19] MEDS: DOXYCYCLINE HYCLATE 50 MG CAP PO SCH ×2 (08:11→21:01)
[2022-01-19] MEDS: GABAPENTIN 300 MG CAP PO SCH ×3 (08:12→21:01)
[2022-01-19] MEDS: DOCUSATE SODIUM 100 MG CAP PO SCH ×2 (08:12→21:01)
[2022-01-19] MEDS: PANTOprazole 40 MG TAB PO SCH ×2 (08:12→21:00)
[2022-01-19] MEDS: POTASSIUM CHLORIDE 10 MEQ TABCR PO SCH ×2 (08:12→21:00)
[2022-01-19] MEDS: FUROSEMIDE 40 MG/4 ML VIAL IV SCH ×2 (08:13→17:10)
[2022-01-19 08:36] LABS: Hematocrit (blood only) 26.2 % (37-47); Hemoglobin 8.1 g/dL (12.0-16.0); Mean Corpuscular Hemoglobin 25.2 pg (25-34); Mean Corpuscular Hgb Conc 30.9 g/dL (32-36); Mean Corpuscular Volume 81.4 fL (80-100); Mean Platelet Volume 10.8 fL (7.4-10.4); Platelet Count 166 K/uL (130-400); RDW Coefficient of Variation 17.2 % (11.5-14.5); RDW Standard Deviation 51.6 fL (36.4-46.3); Red Blood Count 3.22 M/uL (4.2-5.4); White Blood Count 2.75 K/uL (4.8-10.8)
[2022-01-19 08:54] LABS: INR 1.3 (0.9-1.1); Prothrombin Time 13.5 Seconds (9.0-12.0)
[2022-01-19 09:04] LABS: Troponin I 0.03 ng/ml (0-0.04)
[2022-01-19 09:09] LABS: Albumin Globulin Ratio 1.1 (0.9-2); Albumin Level 3.2 gm/dl (3.4-5.0); BUN Creatinine Ratio 17.7 (10-20); Bilirubin,Total 0.4 mg/dl (0.2-1.0); Calcium 8.1 mg/dl (8.5-10.1); Creatinine Clr Calc Pharmacy 74.7 ml/min; Est GFR (African American) 83.1 ml/min; Est GFR (Non-African American) 71.7 ml/min; Globulin 2.8 gm/dl (2.5-4.0); Magnesium 1.7 mg/dl (1.7-2.4); Potassium 3.6 mmol/L (3.5-5.1)
[2022-01-19] MEDS: ENOXAPARIN INJ 120 MG/0.8 ML SYR SQ SCH (09:28)
--- NOTE | 2022-01-19 10:55 | Cardiology Consultation ---
Date of Consultation January 19, 2022 Assessment & Plan (1) Acute heart failure with preserved ejection fraction (HFpEF): (2) Abnormal echocardiogram: (3) Chronic anticoagulation: (4) HTN (hypertension): (5) Anemia: (6) Morbid obesity with BMI of 50.0-59.9, adult: (7) Venous ulcers of both lower extremities: Morbidly obese 76-year-old woman with recent onset congestive heart failure with preserved systolic function but new wall motion abnormalities noted on recent echocardiogram. She has responded well to diuresis overnight, continue furosemide 40 mg IV twice daily (hold AM dose tomorrow prior to cardiac catheterization). Etiology of her heart failure is likely multifactorial, including diastolic dysfunction, mitral regurgitation, with a potential ischemic component given her wall motion abnormalities. As she had been scheduled for an outpatient catheterization 01/25/2022, plan instead to obtain this procedure during current hospitalization, particularly since she is fortuitously subtherapeutic on her anticoagulation (INR 1.3). Spoke with Dr. Wells, right and left heart cardiac catheterization planned for tomorrow. Hold warfarin and enoxaparin tonight. Source of her chronic anemia is unclear, possible myelodysplastic syndrome. This appears chronic as there is no evidence of active GI or other blood loss. She had received transfusions in the past. We'll continue to follow along, further recommendations based on results of her cardiac catheterization. History of Present Illness Reason for Consultation: CHF exacerbation Requesting Physician: Mitch Piña MD Attending Physician: Mitch Piña MD History of Present Illness 76-year-old woman with recent onset heart failure with preserved ejection fraction (EF 50-55%), mild to moderate mitral regurgitation, unexplained wall motion abnormalities on recent echocardiogram (outpatient cath planned for 01/25/2022), chronic kidney disease, and chronic anticoagulation (on warfarin for remote pulmonary embolism), who was admitted 01/18/2022 with progressive dyspnea exertion and worsening leg edema consistent with uncontrolled heart failure. She has been followed by Dr. Jc Cobb and Shi Carrillo PA-C for leg ulcerations. Cardiac enzymes and ECGs do not suggest ongoing myocardial ischemia, however given her recent onset heart failure and new wall motion abnormalities on echocardiogram last week, the possibility of proceeding with her cardiac catheterization earlier has been entertained. At the time of my evaluation this morning, she was feeling much better after a brisk diuresis and noted no dyspnea at rest. She denied any chest pain, lightheadedness, or palpitations. Allergies Allergy/AdvReac Type Severity Reaction Status Date / Time No Known Allergies Allergy Verified 01/18/22 16:08 Home Medications Medication Instructions Recorded Confirmed Type docusate sodium 100 mg capsule 100 mg PO BID #60 cap 07/03/19 01/18/22 Rx lorazepam 0.5 mg tablet 0.5 mg PO TID PRN #90 tab 07/03/19 01/18/22 Rx oxycodone 5 mg tablet 5 mg PO Q4H PRN #60 tab 07/03/19 01/18/22 Rx pantoprazole 40 mg tablet,delayed 40 mg PO BID #180 tab 07/03/19 01/18/22 Rx release potassium chloride 10 mEq 10 meq PO BID #180 tab 07/03/19 01/18/22 Rx tablet,extended release (Klor-Con) furosemide 20 mg tablet 20 mg PO BID 03/17/21 01/18/22 History pramipexole 0.25 mg tablet 0.5 mg PO QPM 03/17/21 01/18/22 History warfarin 5 mg tablet 2.5 mg PO WK 03/18/21 01/18/22 History warfarin 5 mg tablet 5 mg PO 6XWK 03/18/21 01/18/22 History amitriptyline 25 mg tablet 25 mg PO QAM 06/13/21 01/18/22 History carvedilol 6.25 mg tablet 6.25 mg PO QAM 06/13/21 01/18/22 History colestipol 1 gram tablet 2 gm PO BID 06/13/21 01/18/22 History levothyroxine 112 mcg capsule 112 mcg PO QAM 06/13/21 01/18/22 History gabapentin 100 mg capsule 300 mg PO TID 07/29/21 01/18/22 History lisinopril 40 mg tablet 40 mg PO QAM 10/12/21 01/18/22 History cholecalciferol (vitamin D3) 1,250 50,000 units PO WK 01/18/22 01/18/22 History mcg (50,000 unit) capsule Patient History Medical History Anemia resolved per pt, blood transfusions "many yrs ago" unknown cause per pt; mild asymptomatic per nephrology 08/2021 note Chronic anticoagulation PE and long time warfarin CKD (chronic kidney disease), stage III Depression controlled, stable per pt JOSE (generalized anxiety disorder) controlled, stable per pt HTN (hypertension) controlled, stable per pt Hypothyroidism IBS (irritable bowel syndrome) Obesity NIKKI (obstructive sleep apnea) Intolerant to CPAP-no current treatment Peripheral neuropathy feet, uses rolling walker consistently Pulmonary embolism on warfarin, follows with anticoagulation clinic Vitamin D deficiency Surgical History History of bilateral knee replacement History of cataract extraction right and left History of hysterectomy History of open reduction and internal fixation (ORIF) procedure right foot History of spinal fusion Hx of total shoulder replacement right and left Left reverse TSA 02/01/2018: LMA#4 + PNB. No issues per anesthesia progress note. S/P cardiac cath "2002 - normal coronaries" S/P cholecystectomy S/P left knee arthroscopy Family History Father Pulmonary embolism, Onset Age: 69 Stroke Mother , 93 Arthritis Hypertension Sister Breast cancer Social History Smoking Status: Unknown if ever smoked Second Hand Exposure: No; Hx Alcohol Use: No Hx Substance Use: No Preferred Language: Azeri Communication Ability: Effective Visual Impairment: Limited Hearing Ability: Hard of Hearing Supervisor Elementary Education Required: No Beliefs That Will Affect Care: None marital status: / Current Living Situation: Alone current occupational status: retired How many Children do You have: 2 How many Children do You have Comment: neither son is local, pt stated she has two sister in laws that assist with care as needed. She also has a niece that assists her frequently. Other Information That Helps Us Care for You: No Feels Safe at Home: Yes Safety Concerns: Feels Safe At This Time during the past year weight has: remained stable Assistive Devices: Glasses Physical Exam Physical Exam: Adult white female, morbidly obese, appears comfortable. Afebrile. Normotensive. Pulse 76 bpm and regular. Skin: no ecchymoses or generalized lesions. HEENT: unremarkable. Neck: Jugular venous pulse nursing home to the angle of the jaw with increased respiratory variation, no obvious carotid bruits. Lungs: Faint bibasilar crackles, generally clear. No wheezing. No accessory muscle use. Cardiac: regular rhythm, 2/6 apical holosystolic murmur rating to the axilla, no diastolic murmur or gallop. Abdomen: benign. No evidence of umbilical hernia currently. Extremities: 1-2+ pretibial edema with rubor, good capillary refill (1 second), brisk radial and dorsalis pedis pulses. Neurologic: normal affect, nonfocal. Results & Data ([facility]) Vital Signs (Past 12 Hours) Vital Signs Temp Pulse Pulse Resp BP Pulse Ox 01/19/22 08:10 81 01/19/22 06:57 98.1 F 77 18 116/68 92 01/19/22 04:00 98.1 F 80 20 124/68 91 01/18/22 23:30 97.5 F L 90 22 142/69 H 93 Laboratory Results Troponin negative x2. INR 1.3 today. BNP 220. Hemoglobin 8.1. Normal electrolytes, BUN 14, creatinine 0.79. Echocardiogram 01/13/2022 showed EF 50 to 55% with mild basal to mid lateral and inferolateral hypokinesis. Grade 2 diastolic dysfunction. Mild to moderate mitral regurgitation. Dilated IVC. Compared with 2020 study, wall motion abnormalities were new and mitral regurgitation had increased. Diagnostic Findings Admission ECG showed sinus rhythm with PACs and right bundle branch block, no significant ST deviation. A second ECG was similar. Chest x-ray showed mild vascular congestion and decreased inspiration. PG Care Time/CCT Total # of Minutes Spent Total Time Spent with Patient: Total time spent is greater than 50% in coordination of care (as documented) at patient's floor/unit and/or counseling patient: Coding Level of Care Code 79110 Initial Inpt Care Lvl 3 Diagnoses Acute heart failure with preserved ejection fraction (HFpEF) I50.31 Morbid obesity with BMI of 50.0-59.9, adult E66.01; Z68.43 Venous ulcers of both lower extremities I83.019; I83.029; L97.919; L97.929 HTN (hypertension) I10 Anemia D64.9 Abnormal echocardiogram R93.1 Chronic anticoagulation Z79.01
--- NOTE | 2022-01-19 14:08 | Hospitalist Progress Note ---
Date of Service January 19, 2022 Assessment & Plan (1) CHF (congestive heart failure): Plan: ACUTE ON CHRONIC DIASTOLIC CHF - Echo was recently c as an outpatient on 01/13 showing diastolic dysfunction, LVEF 50 to 55%, new wall motion abnormalities in inferior lateral regions - concern recent change has caused worsening hear function leading to increased edema, moderate mitral regurg-no need to repeat at this time. Patient mentions having possible outpatient cath on 01/25? - Failure of outpatient increase of diuretics- was on lasix 40 mg daily and increased to 80 mg daily however no significant improvement. - BNP elevated minimally at 220 evaluated by [employer] P[employer] Dr. Malave- for cardiac cath tomorrow given new wall motion abnormalities diuresing gradually continue Lasix 40mg IV, hold AM dose prior to cardiac cath on Doxycycline 100mg BID for possible component of leg cellulitis wound care consulted (2) Chronic anticoagulation: Plan: - Hx of DVT, continue coumadin at 5 mg daily except 2.5 mg on Fridays - subtherapeutic INR of 1.2 on arrival - INR 1.3 increase coumadin to 7.5mg po daily continue Lovenox bridge (per [employer] Paster, hold coumadin and lovenox tonight for cardiac cath tomorrow) INR daily (3) Hypothyroidism: Plan: - Cont levothyroxine (4) HTN (hypertension): Plan: - Continue coreg 6.25 daily, lisinopril 40 mg daily (5) Anemia: Plan: baseline 9.8 now 8.1 no signs of overt bleeding check anemia panel (6) CKD (chronic kidney disease), stage III: Plan: - Cr and BUN stable (7) Restless leg syndrome: Plan: - Continue mirapex (8) Cellulitis: Plan: - involves BLE from ankles to below the knee - Doppler US: no DVT improving continue Doycycline Day 2 (9) Chronic venous insufficiency: Plan: - As above (10) JOSE (generalized anxiety disorder): Plan: Continue ativan, gabapentin, klonopin, as scheduled. (11) Morbid obesity with BMI of 50.0-59.9, adult: Plan: - BMI of 52.4, encourage diet and exercise once shortness of breath and fluid overload is improved. - Pt states has gained 90 lbs within the past year. Unknown how much of this is fluid presently - Non Destructive Testing Inspector consult DVT ppx: -lovenox bridge with coumadin, teds, scds CODE: Full code Dispo: lives at home by herself PT/OT eval patient prefers to return home upon discharge Admission and Anticipated Discharge Date Admission Date: January 18, 2022 Subjective ff up for acute chf, etc seen resting in bed, comfortable states she feels improved compared to yesterday breathing is improving, on room air no chest pain, palpitations, dizziness mild leg discomfort no other symptoms Review of Systems Review of Systems: all noted and negative except for above Physical Exam Physical Exam: General- oriented x 3, not in distress, speaks in sentences with no effort or accessory muscle use Eyes- anicteric Neck- no JVD Lungs- faint rales at the bases no wheezing Heart- normal rate, regular rhythm; no murmurs Abdomen- normal bowel sounds, nondistended, soft, nontender Extremities- grade 2 lower leg edema, mild erythema and warmth, tenderness wounds on BL anterior aspect of lower leg- ruptured blisters- now dry Neuro- alert, oriented x 3; no gross focal neurologic deficits Skin- warm & dry Results & Data Results & Data ([facility]) Vital Signs (Past 12 Hours) Vital Signs Temp Pulse Pulse Resp BP Pulse Ox 01/19/22 12:44 36.6 C 80 20 133/73 93 01/19/22 08:10 81 01/19/22 06:57 36.7 C 77 18 116/68 92 01/19/22 04:00 36.7 C 80 20 124/68 91 all noted and reviewed including below
--- NOTE | 2022-01-19 15:12 | Electrocardiogram Report ---
Test Reason : Blood Pressure : / mmHG Vent. Rate : 083 BPM Atrial Rate : 083 BPM P-R Int : 188 ms QRS Dur : 132 ms QT Int : 414 ms P-R-T Axes : 064 049 -09 degrees QTc Int : 486 ms Sinus rhythm with Premature supraventricular complexes Right bundle branch block Abnormal ECG When compared with ECG of 18-JAN-2022 15:08, No significant change was found Confirmed by Alfredo Malave ([id number]) on 01/19/2022 3:12:39 PM Referred By: REFERRED SELF Confirmed By:Alfredo Malave
[2022-01-19] MEDS ORDERED: WARFARIN SOD 7.5 MG TAB PO SCH (16:00)
[2022-01-19] MEDS: PRAMIPEXOLE DIHYDROCHLO 0.25 MG TAB PO SCH (21:00)
[2022-01-19] MEDS: AMITRIPTYLINE HCL 25 MG TAB PO SCH (21:01)
[2022-01-20] MEDS: LEVOTHYROXINE SODIUM 112 MCG TABLET PO SCH (05:49)
[2022-01-20] MEDS: FUROSEMIDE 40 MG/4 ML VIAL IV SCH ×2 (06:52→16:40)
[2022-01-20 06:56] LABS: Hematocrit (blood only) 26.2 % (37-47); Hemoglobin 8.1 g/dL (12.0-16.0); Mean Corpuscular Hgb Conc 30.9 g/dL (32-36); Mean Corpuscular Volume 80.9 fL (80-100); Mean Platelet Volume 11.1 fL (7.4-10.4); Platelet Count 176 K/uL (130-400); RDW Coefficient of Variation 17.2 % (11.5-14.5); Red Blood Count 3.24 M/uL (4.2-5.4); White Blood Count 3.16 K/uL (4.8-10.8)
[2022-01-20] MEDS ORDERED: LIDOCAINE 1% LOCAL 20 ML VIAL ONE (07:04)
[2022-01-20 07:06] LABS: INR 1.2 (0.9-1.1)
[2022-01-20 07:27] LABS: Albumin Globulin Ratio 1.2 (0.9-2); Albumin Level 3.2 gm/dl (3.4-5.0); BUN Creatinine Ratio 21.5 (10-20); Bilirubin,Total 0.4 mg/dl (0.2-1.0); Creatinine Clr Calc Pharmacy 73.8 ml/min; Est GFR (African American) 83.1 ml/min; Est GFR (Non-African American) 71.7 ml/min; Globulin 2.7 gm/dl (2.5-4.0); Potassium 3.4 mmol/L (3.5-5.1); Total Protein 5.9 gm/dl (6.0-8.3)
[2022-01-20 07:44] LABS: Folate (Folic Acid) 18.11 ng/ml (>5.38)
[2022-01-20] MEDS: PANTOprazole 40 MG TAB PO SCH ×2 (07:51→20:31)
[2022-01-20] MEDS: POTASSIUM CHLORIDE 10 MEQ TABCR PO SCH ×2 (07:51→20:32)
[2022-01-20] MEDS: carvediloL 6.25 MG TAB PO SCH (07:51)
[2022-01-20] MEDS: GABAPENTIN 300 MG CAP PO SCH ×3 (07:51→20:32)
[2022-01-20] MEDS: lisinopril 40 MG TAB PO SCH (07:51)
[2022-01-20] MEDS: DOCUSATE SODIUM 100 MG CAP PO SCH ×2 (07:51→20:32)
[2022-01-20] MEDS: DOXYCYCLINE HYCLATE 50 MG CAP PO SCH (07:51)
[2022-01-20 08:15] LABS: Ferritin 12.1 ng/ml (8-388)
[2022-01-20] MEDS: COLESTIPOL HCL 1 GM TAB PO SCH ×2 (10:57→22:32)
[2022-01-20] MEDS ORDERED: fentaNYL citrate 100 MCG/2 ML VIAL ONE (10:58)
[2022-01-20] MEDS ORDERED: MIDAZOLAM HCL 1 MG/ML 2ML VIAL ONE (10:58)
[2022-01-20] MEDS ORDERED: HEPARIN (PORCINE) 1000 UNIT/ML 10 ML (CATH LAB USE ONLY) ONE (10:58)
[2022-01-20] MEDS ORDERED: niCARdipine HCL INJ 2.5 MG/ML 10 ML AMP ONE (10:58)
[2022-01-20] MEDS ORDERED: NITROGLYCERIN/D5W 100MCG/ML 20ML SYR ONE (10:59)
[2022-01-20] MEDS ORDERED: ATROPINE SULFATE 0.1 MG/ML 10ML SYR IV ONE (12:44)
[2022-01-20 12:49] LABS: iSTAT Arterial Blood Gas HCO3 31 meg/L (19-24); iSTAT Arterial Blood Gas pCO2 47 mmHg (35-46); iSTAT Arterial Blood Gas pH 7.42 (7.35-7.45); iSTAT Arterial Blood Gas pO2 34 mmHg (80-95); iSTAT Carbon Dioxide 32 mmol/L (24-31)
[2022-01-20 12:53] LABS: iSTAT Arterial Blood Gas HCO3 32 meg/L (19-24); iSTAT Arterial Blood Gas pCO2 43 mmHg (35-46); iSTAT Arterial Blood Gas pH 7.48 (7.35-7.45); iSTAT Arterial Blood Gas pO2 63 mmHg (80-95); iSTAT Carbon Dioxide 33 mmol/L (24-31)
[2022-01-20 12:53] LABS: iSTAT Arterial Blood Gas HCO3 30 meg/L (19-24); iSTAT Arterial Blood Gas pCO2 46 mmHg (35-46); iSTAT Arterial Blood Gas pH 7.42 (7.35-7.45); iSTAT Arterial Blood Gas pO2 34 mmHg (80-95); iSTAT Carbon Dioxide 31 mmol/L (24-31)
--- NOTE | 2022-01-20 13:13 | Cardiac Catheterization ---
Cardiac Cath Procedure Full Procedure Date January 20, 2022 Pre-Procedure Diagnosis Pre-Procedure Diagnosis: CHF AUC Score AUC Score: 07 Post-Procedure Diagnosis Post-Procedure Diagnosis: Normal Coronary Arteries Procedure(s) Performed Procedure(s) Performed: Coronary Angiography, Left Heart Cath, Right Heart Cath and LV Angiography Ribbon Winder Audi Wells MD, PhD Estimated Blood Loss Estimated Blood Loss: 15 ml Medication(s) Medication(s): Fentanyl, Versed, atropine, lidocaine, heparin Summary of Findings Patient was brought to the cardiac catheterization suite where she was shaved and prepped in a sterile fashion. Sedated using IV Versed and fentanyl. Soft tissues of the right wrist were anesthetized using 2 mL of 1% Xylocaine. The right radial artery was accessed using a modified Seldinger technique and a 6 [place] radial artery glide sheath was placed. We next turned our attention to femoral artery access. Soft tissues of the right groin were anesthetized using 10 mL of 1% Xylocaine. Using the ultrasound for guidance (image saved) the right femoral vein was accessed with modified Seldinger technique and a 6 [place] femoral venous sheath was placed. We proceeded first with left heart cath and coronary angiography. Patient was provided anticoagulation with IV heparin. Right coronary angiography was performed in orthogonal views with a 5 [place] TIGR diagnostic catheter. Left coronary angiography was performed in orthogonal views with a 5 [place] JL4 diagnostic catheter. Left heart cath and left ventriculogram were performed with a 5 [place] pigtail catheter. Diagnostic catheters were removed. We next proceeded with right heart cath. A 6 [place] catheter was advanced through the femoral venous sheath with the balloon inflated. Using the [place] guidewire the catheter was eventually advanced under fluoroscopic guidance to the terminal "wedge position". After flushing of the system with normal saline the pulmonary capillary wedge pressure was obtained. The balloon was deflated and the pulmonary arterial pressure and oxygen saturation were sampled. A systemic ar terial oxygen saturation was sampled via the radial artery sheath. The [place] catheter was pulled back to the right ventricle where right ventricular hemodynamics were measured. Finally, the catheter was pulled back into the right atrium where right atrial pressure and oxygen saturation were measured. The cardiac output was determined by the method of Triny. [place] catheter was then removed from the patient. Radial artery sheath was removed and hemostasis was obtained using a TR band. The femoral venous sheath was then removed and hemostasis was obtained using manual compression. Patient developed bradycardia with manual compression with mild hypotension and required 1 mg of IV atropine. This resulted in return of her heart rate to normal and improvement in her blood pressure. Patient was then returned to the recovery area. This ended the case. Right heart cath: Pulmonary capillary wedge pressure: 25 mmHg. Pulmonary arterial pressure: 43/27 mmHg, mean 33 mmHg. Right ventricular pressure: 45/16 mmHg, RVEDP 21 mmHg. Right atrial pressure: 18 mmHg Systemic arterial oxygen saturation: 93% Pulmonary arterial oxygen saturation: 65% Mixed venous oxygen saturation: 63% Cardiac output: 5.6 L/min Coronary angiography: LMT: Large caliber vessel bifurcating into the LAD and circumflex. No disease. LAD: Large caliber and transapical. Gives 1 large branching diagonal. There is no angiographically evident disease in the LAD or its branches. Left circumflex: Medium to large caliber and nondominant. Provides 1 small OM1 and distally a large branching OM 2 before it terminates. There is no angiographically evident disease in the circumflex or its branches RCA: Large caliber and dominant vessel. Provides several RV marginal branches and bifurcates into the posterior lateral branch and long relatively small caliber PDA. There is no angiographically evident disease. LVEF: 45 to 50% Hemodynamics Rest Ao:: 139/77 mmHg, mean 89 mmHg Final Ao: 134/75 mmHg, mean 100 mmHg LV: 136/12 mmHg, LVEDP 24 mmHg Recommendations Recommendations: Medical Therapy and/or Counseling Radiation Exposure (mGy) 1366 Contrast (mls) 80 Anesthesia Fentanyl, Versed Procedural Complication(s) None I attest to the content of the Intraoperative Record and any orders documented therein. Any exceptions are noted below. ACC Data: Sulphate Tester Cardiac Status Clinical evaluation leading to the procedure CAD Presenation: No Sxs, No angina Heart Failure: NYHA Class: CCS IV Cardiogenic Shock within 24 Hours: No Cardiac Arrest within 24 Hours: No Coronary Anatomy Dominant: Right Left Main (% Stenosis): Normal LAD (% Stenosis): Normal D1 (% Stenosis): Normal Circumflex (% Stenosis): Normal OM1 (% Stenosis): Normal OM2 (% Stenosis): Normal RCA (% Stenosis): Normal Left Ventricular Angiography EF (%): 45-50 Diagnostic Physicians Name: Audi Wells MD, PhD Closure Device Recommendations: Medical Therapy and/or Counseling
[2022-01-20] MEDS: LORazepam 0.5 MG TAB PO PRN (14:38)
[2022-01-20] MEDS: PRAMIPEXOLE DIHYDROCHLO 0.25 MG TAB PO SCH ×2 (15:03→20:31)
--- NOTE | 2022-01-20 15:24 | Cardiology Progress Note ---
Date of Service January 20, 2022 Assessment & Plan (1) Acute heart failure with preserved ejection fraction (HFpEF): (2) Normal coronary angiogram: (3) Chronic anticoagulation: (4) HTN (hypertension): Plan: Etiology of wall motion abnormality on recent echocardiogram uncertain, coronary arteries were normal on angiography. Some degree of pulmonary hypertension may be residual from her prior pulmonary embolism, however her elevated PCWP and LVEDP suggest that she has not yet achieved optimal volume status and therefore would benefit from additional diuresis. Given comorbidities of anemia and morbid obesity, she likely tolerates even mild hypervolemia poorly and may have a narrow range of ideal volume status. Since she remains hypervolemic currently, resume furosemide 40 mg IV twice daily, after further diuresis would switch to single day oral dosing (starting with 60 mg p.o. daily, will utilize sliding scale as outpatient to adjust dose upward or downward based on daily weight). Resume warfarin for chronic anticoagulation post pulmonary embolism. Continue lisinopril and carvedilol for afterload reduction, would titrate carvedilol up gradually as BP/heart rate allow. Currently, could increase carvedilol to 12.5 mg twice daily. Will continue to follow while in-hospital. Please arrange for follow-up in heart failure clinic with Radha Toledo PA-C upon discharge. Thank you. Admission and Anticipated Discharge Date Admission Date: January 18, 2022 Subjective Episode of mild paroxysmal nocturnal dyspnea, she had to sit up to catch her breath early this morning. Since then, she has felt fine sitting upright. No chest pain, palpitations, or lightheadedness. Cardiac catheterization today showed normal coronary arteries on angiography and moderately elevated right/left heart pressures. She was comfortable at the time of my evaluation this afternoon. Physical Exam Physical Exam: No distress. I/O -1500 Weight down 5 pounds from yesterday. Normotensive. Pulse 76 bpm and regular. Skin: no ecchymoses or generalized lesions. HEENT: unremarkable. Neck: Jugular venous pulse correction to the angle of the jaw with increased respiratory variation, no obvious carotid bruits. Lungs: Faint bibasilar crackles, generally clear. No wheezing. No accessory muscle use. Cardiac: regular rhythm, 2/6 apical holosystolic murmur rating to the axilla, no diastolic murmur or gallop. Abdomen: benign. No evidence of umbilical hernia currently. Right groin venous access site benign. Extremities: Right radial artery access site benign. 1-2+ pretibial edema with rubor, good capillary refill (1 second), brisk radial and dorsalis pedis pulses. Neurologic: normal affect, nonfocal. Results & Data ([facility]) Laboratory Results Normal electrolytes the exception of potassium 3.4. BUN 17, creatinine 0.79. INR 1.2. Diagnostic Findings Normal coronary arteries on angiogram today. Right heart findings: Pulmonary capillary wedge pressure: 25 mmHg. Pulmonary arterial pressure: 43/27 mmHg, mean 33 mmHg. Right ventricular pressure: 45/16 mmHg, RVEDP 21 mmHg. Right atrial pressure: 18 mmHg PG Care Time/CCT Total # of Minutes Spent Total Time Spent with Patient: Total time spent is greater than 50% in coordination of care (as documented) at patient's floor/unit and/or counseling patient: Coding Level of Care Code 68451 Subseq Hosp Care Lvl 3 Diagnoses Normal coronary angiogram Acute heart failure with preserved ejection fraction (HFpEF) I50.31 Chronic anticoagulation Z79.01 HTN (hypertension) I10
--- NOTE | 2022-01-20 15:26 | Hospitalist Progress Note ---
Date of Service January 20, 2022 Assessment & Plan (1) CHF (congestive heart failure): Plan: Acute on Chronic Diastolic CHF --CXR:Decreased inspiration with evidence for mild central vascular congestion. --Venous Doppler:No DVT within the right or left lower extremity. -Echo outpatient on 01/13: EF 50-55%. Mild basal to mid lateral, inferolateral hypokinesis. Grade 2 diastolic dysfunction. Mildly dilated RV with normal function. Mild to moderate mitral regurgitation. Mitral valve prolapse. -Failure of outpatient increase of diuretics- was on lasix 40 mg daily and increased to 80 mg daily with no significant improvement. -BNP 220 -Cardiac Cath: Normal coronary arteries -Continue Lasix 40 mg twice daily Appreciate cardiology input Monitor I's and O's, daily weight, volume status Continue lisinopril Increase carvedilol to 12.5 mg twice daily Needs follow-up with cardiology upon discharge Possible leg cellulitis Empirically on doxycycline wound care consulted (2) Chronic anticoagulation: Plan: - H/O DVT, On coumadin at 5 mg daily except 2.5 mg on Fridays - subtherapeutic INR 1.2 Resume coumadin (3) Hypothyroidism: Plan: - Continue levothyroxine (4) HTN (hypertension): Plan: - Continue coreg, lisinopril (5) Anemia: Plan: Blood work suggestive of iron deficiency anemia Started on iron supplements no signs of overt bleeding Monitor CBC (6) CKD (chronic kidney disease), stage III: Plan: - Cr stable (7) Restless leg syndrome: Plan: - Continue mirapex (8) Cellulitis: Plan: Management as above (9) Chronic venous insufficiency: Plan: - As above (10) JOSE (generalized anxiety disorder): Plan: Continue ativan, gabapentin, klonopin, as scheduled. (11) Morbid obesity with BMI of 50.0-59.9, adult: Plan: - BMI of 52.4, encourage diet and exercise once shortness of breath and fluid overload is improved. - Application Systems Architect consult DVT px: coumadin, teds, scds CODE STATUS: Full code Admission and Anticipated Discharge Date Admission Date: January 18, 2022 Subjective Patient is seen and examined at bedside Plan for cardiac cath today States having transient dyspnea earlier today which currently resolved Denies any chest pain, dizziness, nausea, abdominal pain Offers no other complaints Review of Systems Review of Systems: All systems reviewed & are unremarkable except as noted in Subjective Physical Exam Physical Exam: Physical Exam: Vitals signs as noted above General Appearance:Obese, no apparent distress Head: normocephalic, Atraumatic Eyes: normal inspection, EOMI Neck: supple, Trachea midline Respiratory/Chest: Normal breath sounds, CTA, No accessory muscle use Cardiovascular: S1, S2, No murmur Abdomen/GI:Soft, Non tender, Bowel sounds present Extremities/Musculoskeletal:normal inspection, B/L LE edema, +Scabs Neurologic/Psych:AAOX3, grossly no focal neurological deficits Skin: normal color, warm Results & Data Results & Data ([facility]) Vital Signs (Past 12 Hours) Vital Signs Temp Pulse Pulse Resp BP Pulse Ox 01/20/22 14:49 75 01/20/22 13:30 36.4 C L 76 18 136/88 96 01/20/22 13:29 82 01/20/22 13:15 36.7 C 82 18 134/82 98 01/20/22 13:10 78 20 120/61 94 01/20/22 12:55 74 20 123/58 L 95 01/20/22 11:45 36.4 C L 68 20 148/77 H 96 01/20/22 11:33 133/80 01/20/22 07:11 75 01/20/22 06:59 36.7 C 75 20 131/77 94 Laboratory Results Short CBC 01/20/22 Range/Units 06:10 WBC 3.16 L (4.8-10.8) K/uL Hgb 8.1 L (12.0-16.0) g/dL Hct 26.2 L (37-47) % Plt Count 176 (130-400) K/uL BMP 01/20/22 06:10 Sodium 139 Potassium 3.4 L Chloride 101 Carbon Dioxide 32 BUN 17 Creatinine 0.79 Glucose 97 Calcium 8.0 L Liver Function 01/20/22 Range/Units 06:10 Total Bilirubin 0.4 (0.2-1.0) mg/dl AST 13 (13-39) U/L ALT 8 (7-52) U/L Alkaline Phosphatase 150 H (34-104) U/L Albumin 3.2 L (3.4-5.0) gm/dl
[2022-01-20] MEDS ORDERED: POTASSIUM CHLORIDE CRTAB 20 MEQ TABCR PO STA (16:02)
[2022-01-20] MEDS: DOXYCYCLINE HYCLATE 100 MG CAP PO SCH (20:30)
[2022-01-20] MEDS: carvediloL 12.5 MG TAB PO SCH (20:30)
[2022-01-20] MEDS: AMITRIPTYLINE HCL 25 MG TAB PO SCH (20:31)
[2022-01-21] MEDS: LEVOTHYROXINE SODIUM 112 MCG TABLET PO SCH (05:53)
[2022-01-21 07:12] LABS: Hematocrit (blood only) 25.8 % (37-47); Hemoglobin 7.9 g/dL (12.0-16.0); Mean Corpuscular Hemoglobin 25.1 pg (25-34); Mean Corpuscular Hgb Conc 30.6 g/dL (32-36); Mean Corpuscular Volume 81.9 fL (80-100); Mean Platelet Volume 11.3 fL (7.4-10.4); Platelet Count 167 K/uL (130-400); RDW Coefficient of Variation 17.1 % (11.5-14.5); RDW Standard Deviation 51.7 fL (36.4-46.3); Red Blood Count 3.15 M/uL (4.2-5.4); White Blood Count 3.25 K/uL (4.8-10.8)
[2022-01-21 07:25] LABS: INR 1.2 (0.9-1.1); Prothrombin Time 12.2 Seconds (9.0-12.0)
[2022-01-21] MEDS: GABAPENTIN 300 MG CAP PO SCH ×3 (07:53→22:21)
[2022-01-21] MEDS: FERROUS SULFATE 325 MG TAB PO SCH (07:53)
[2022-01-21] MEDS: DOXYCYCLINE HYCLATE 100 MG CAP PO SCH ×2 (07:53→22:22)
[2022-01-21] MEDS: FUROSEMIDE 40 MG/4 ML VIAL IV SCH ×2 (07:53→16:00)
[2022-01-21] MEDS: POTASSIUM CHLORIDE 10 MEQ TABCR PO SCH ×2 (07:54→22:19)
[2022-01-21] MEDS: PANTOprazole 40 MG TAB PO SCH ×2 (07:54→22:22)
[2022-01-21] MEDS: DOCUSATE SODIUM 100 MG CAP PO SCH ×2 (07:54→22:19)
[2022-01-21 07:55] LABS: Albumin Globulin Ratio 1.2 (0.9-2); Albumin Level 3.3 gm/dl (3.4-5.0); BUN Creatinine Ratio 21.6 (10-20); Bilirubin,Total 0.3 mg/dl (0.2-1.0); Calcium 8.1 mg/dl (8.5-10.1); Est GFR (African American) 72.9 ml/min; Est GFR (Non-African American) 62.9 ml/min; Globulin 2.7 gm/dl (2.5-4.0); Potassium 4.1 mmol/L (3.5-5.1)
[2022-01-21] MEDS: PRAMIPEXOLE DIHYDROCHLO 0.25 MG TAB PO SCH ×2 (07:55→22:23)
[2022-01-21] MEDS: carvediloL 12.5 MG TAB PO SCH ×2 (07:56→22:20)
--- NOTE | 2022-01-21 09:30 | Cardiology Progress Note ---
Date of Service January 21, 2022 Assessment & Plan (1) Acute heart failure with preserved ejection fraction (HFpEF): Plan: 2. Elevated right/left heart pressures 3. Normal coronaries 4. History of DVT/PE 5. Anemia Patient continues to diurese well. She is net negative nearly 6L. Her breathing and edema continue to improve. On exam today still with mild residual congestion. Hemodynamically stable and renal function, electrolytes in range. Continue Lasix IV 40 mg bid today, likely will be ready to transition to oral Lasix 60 mg bid tomorrow and would continue that dose at discharge. We will follow her closely in our office. Cardiac cath yesterday with normal coronaries. Evidence of pulmonary hypertension and elevated right/left heart pressures. Pulmonary hypertension may be secondary to history of PE. Continue lisinopril and carvedilol, carvedilol just increased to 12.5 mg bid yesterday. Could consider further titration of carvedilol as BP/HR allows. Admission and Anticipated Discharge Date Admission Date: January 18, 2022 Supervising Physician Co-Signing Physician Notes Patient seen, interviewed, and examined. Agree with evaluation and plan as outlined below by Shi Marin PA-C, with the exception of discharge furosemide should be 60 mg PO once daily (rather than twice daily). Subjective Patient reports feeling much better today. Experienced some orthopnea yesterday morning but states she slept well overnight without orthopnea or PND. Breathing comfortably during my visit. No chest pain. No lightheadedness, near syncope or syncope. Catheterization with normal coronaries and moderated elevated right/left heart pressures. Telemetry unremarkable Physical Exam Physical Exam: No distress. I/O -1500. Net -5.9L Hemodynamically stable. General: sitting in bed eating breakfast, appears well HEENT: unremarkable. Neck: Jugular venous pulse 1/4 to the angle of the jaw with increased respiratory variation, no obvious carotid bruits. Lungs: Faint left basilar crackles, generally clear. No wheezing. No accessory muscle use. Cardiac: regular rhythm, 2/6 apical holosystolic murmur rating to the axilla, no diastolic murmur or gallop. Abdomen: benign. No evidence of umbilical hernia currently. Extremities/vascular: -Right radial access site and left CFV acces site without hematoma. Radial pulse intact -Extremities well perfused -1+ pretibial edema bilaterally -Shallow ulcers bilateral shins, mild periwound erythema Neurologic: normal affect, nonfocal. Results & Data ([facility]) Vital Signs (Past 12 Hours) Vital Signs Temp Pulse Pulse Pulse Resp BP Pulse Ox 01/21/22 07:36 36.7 C 66 18 101/65 98 01/21/22 03:30 36.8 C 69 69 18 106/70 94 01/20/22 23:42 36.9 C 75 20 127/78 89 L 01/20/22 23:25 80 Laboratory Results Laboratory Results - last 24 hr 01/20/22 01/20/22 01/20/22 06:10 12:36 12:37 WBC RBC Hgb Hct MCV MCH MCHC RDW Std Deviation RDW Coeff of Bertha Plt Count MPV Peripher Smr Path Cons PT INR POC pH 7.48 H 7.42 POC pCO2 43 47 H POC pO2 63 L 34 L POC HCO3 32 H 31 H POC Total CO2 33 H 32 H POC Base Excess 8.0 H 6.0 H POC ABG O2 Sat 93.0 65.0 L Sodium Potassium Chloride Carbon Dioxide Anion Gap BUN Creatinine Est Cr Clr Drug Dosing Est GFR ( Amer) Est GFR (Non-Af Amer) BUN/Creatinine Ratio Glucose Calcium Total Bilirubin AST ALT Alkaline Phosphatase Total Protein Albumin Globulin Albumin/Globulin Ratio 01/20/22 01/21/22 01/21/22 12:39 06:37 06:37 WBC 3.25 L RBC 3.15 L Hgb 7.9 L Hct 25.8 L MCV 81.9 MCH 25.1 MCHC 30.6 L RDW Std Deviation 51.7 H RDW Coeff of Bertha 17.1 H Plt Count 167 MPV 11.3 H Peripher Smr Path Cons PT INR POC pH 7.42 POC pCO2 46 POC pO2 34 L POC HCO3 30 H POC Total CO2 31 POC Base Excess 6.0 H POC ABG O2 Sat 66.0 L Sodium 138 Potassium 4.1 D Chloride 101 Carbon Dioxide 31 Anion Gap 6 BUN 19 Creatinine 0.88 Est Cr Clr Drug Dosing 63.0 Est GFR ( Amer) 72.9 Est GFR (Non-Af Amer) 62.9 BUN/Creatinine Ratio 21.6 H Glucose 97 Calcium 8.1 L Total Bilirubin 0.3 AST 12 L ALT 7 Alkaline Phosphatase 144 H Total Protein 6.0 Albumin 3.3 L Globulin 2.7 Albumin/Globulin Ratio 1.2 01/21/22 06:37 WBC RBC Hgb Hct MCV MCH MCHC RDW Std Deviation RDW Coeff of Bertha Plt Count MPV Peripher Smr Path Cons PT 12.2 H INR 1.2 H POC pH POC pCO2 POC pO2 POC HCO3 POC Total CO2 POC Base Excess POC ABG O2 Sat Sodium Potassium Chloride Carbon Dioxide Anion Gap BUN Creatinine Est Cr Clr Drug Dosing Est GFR ( Amer) Est GFR (Non-Af Amer) BUN/Creatinine Ratio Glucose Calcium Total Bilirubin AST ALT Alkaline Phosphatase Total Protein Albumin Globulin Albumin/Globulin Ratio PG Care Time/CCT Total # of Minutes Spent Total Time Spent with Patient: Total time spent is greater than 50% in coordination of care (as documented) at patient's floor/unit and/or counseling patient: Coding Level of Care Code 60916 Subseq Hosp Care Lvl 3 Diagnoses Acute heart failure with preserved ejection fraction (HFpEF) I50.31
[2022-01-21] MEDS: lisinopril 40 MG TAB PO SCH (09:52)
--- NOTE | 2022-01-21 10:09 | XRay Report ---
XR chest 1V portable CLINICAL HISTORY: hypoxia TECHNIQUE: Single frontal radiograph of the chest was obtained. Comparison: Comparison is made to chest one view 01/18/2022 FINDINGS: Bilateral reverse shoulder arthroplasties are seen. Cardiomegaly is noted. There is prominence and ce phalization of the vasculature with Kiki B lines seen. No evidence of pleural effusion or pneumotho rax. IMPRESSION: Moderate pulmonary edema. ACT 112: Negative or not required by law. Electronically signed by: Andres Lim M.D. 01/21/2022 10:07 AM
[2022-01-21] MEDS: COLESTIPOL HCL 1 GM TAB PO SCH ×2 (11:08→22:25)
--- NOTE | 2022-01-21 14:34 | Hospitalist Progress Note ---
Date of Service January 21, 2022 Assessment & Plan (1) CHF (congestive heart failure): Plan: Acute on Chronic Diastolic CHF --CXR:Decreased inspiration with evidence for mild central vascular congestion. --Venous Doppler:No DVT within the right or left lower extremity. -Echo outpatient on 01/13: EF 50-55%. Mild basal to mid lateral, inferolateral hypokinesis. Grade 2 diastolic dysfunction. Mildly dilated RV with normal function. Mild to moderate mitral regurgitation. Mitral valve prolapse. -Failure of outpatient increase of diuretics- was on lasix 40 mg daily and increased to 80 mg daily with no significant improvement. -BNP 220 -Cardiac Cath: Normal coronary arteries -Continue Lasix 40 mg twice daily Appreciate cardiology input Monitor I's and O's, daily weight, volume status Continue lisinopril Increase carvedilol to 12.5 mg twice daily Needs follow-up with cardiology upon discharge Chest x-ray today showed pulmonary edema Continue IV Lasix for today Likely plan to be transition to Lasix 60 mg daily upon discharge Possible leg cellulitis Empirically on doxycycline wound care consulted (2) Chronic anticoagulation: Plan: - H/O DVT, On coumadin at 5 mg daily except 2.5 mg on Fridays - subtherapeutic INR 1.2 Resumed coumadin (3) Hypothyroidism: Plan: - Continue levothyroxine (4) HTN (hypertension): Plan: - Continue coreg, lisinopril (5) Anemia: Plan: Blood work suggestive of iron deficiency anemia Started on iron supplements no signs of overt bleeding Monitor CBC (6) CKD (chronic kidney disease), stage III: Plan: - Cr stable (7) Restless leg syndrome: Plan: - Continue mirapex (8) Cellulitis: Plan: Management as above (9) Chronic venous insufficiency: Plan: - As above (10) JOSE (generalized anxiety disorder): Plan: Continue ativan, gabapentin, klonopin, as scheduled. (11) Morbid obesity with BMI of 50.0-59.9, adult: Plan: - BMI of 52.4, encourage diet and exercise once shortness of breath and fluid overload is improved. - Second Mate consult DVT px: coumadin, teds, scds CODE STATUS: Full code Admission and Anticipated Discharge Date Admission Date: January 18, 2022 Subjective Patient is seen and examined at bedside Less short of breath today Leg swelling slowly improving States having nausea and minimal headache this morning Otherwise no complaints Denies any chest pain, dizziness, nausea, abdominal pain Review of Systems Review of Systems: All systems reviewed & are unremarkable except as noted in Subjective Physical Exam Physical Exam: Physical Exam: Vitals signs as noted above General Appearance:Obese, no apparent distress Head: normocephalic, Atraumatic Eyes: normal inspection, EOMI Neck: supple, Trachea midline Respiratory/Chest: Normal breath sounds, minimal basal crackles, No accessory muscle use Cardiovascular: S1, S2, + murmur Abdomen/GI:Soft, Non tender, Bowel sounds present Extremities/Musculoskeletal:normal inspection, B/L LE edema, +Scabs Neurologic/Psych:AAOX3, grossly no focal neurological deficits Skin: normal color, warm Results & Data Results & Data ([facility]) Vital Signs (Past 12 Hours) Vital Signs Temp Pulse Pulse Pulse Resp BP BP 01/21/22 14:10 36.6 C 62 16 102/64 01/21/22 11:50 36.5 C 62 16 96/52 L 01/21/22 07:36 36.7 C 66 18 101/65 01/21/22 06:45 67 01/21/22 03:30 36.8 C 69 69 18 106/70 Pulse Ox 01/21/22 14:10 96 01/21/22 11:50 96 01/21/22 07:36 98 01/21/22 06:45 01/21/22 03:30 94 Laboratory Results Short CBC 01/21/22 Range/Units 06:37 WBC 3.25 L (4.8-10.8) K/uL Hgb 7.9 L (12.0-16.0) g/dL Hct 25.8 L (37-47) % Plt Count 167 (130-400) K/uL BMP 01/21/22 06:37 Sodium 138 Potassium 4.1 D Chloride 101 Carbon Dioxide 31 BUN 19 Creatinine 0.88 Glucose 97 Calcium 8.1 L Liver Function 01/21/22 Range/Units 06:37 Total Bilirubin 0.3 (0.2-1.0) mg/dl AST 12 L (13-39) U/L ALT 7 (7-52) U/L Alkaline Phosphatase 144 H (34-104) U/L Albumin 3.3 L (3.4-5.0) gm/dl
[2022-01-21] MEDS ORDERED: WARFARIN SOD 5 MG TAB PO SCH (16:00)
[2022-01-21] MEDS: LORazepam 0.5 MG TAB PO PRN (18:33)
[2022-01-21] MEDS: oxyCODONE HCL IR 5 MG TAB (IMMEDIATE RELEASE) PO PRN (18:33)
[2022-01-21] MEDS: AMITRIPTYLINE HCL 25 MG TAB PO SCH (22:20)
[2022-01-22] MEDS: LEVOTHYROXINE SODIUM 112 MCG TABLET PO SCH (06:20)
[2022-01-22 08:09] LABS: INR 1.1 (0.9-1.1); Prothrombin Time 12.1 Seconds (9.0-12.0)
[2022-01-22] MEDS: LORazepam 0.5 MG TAB PO PRN ×2 (08:22→15:52)
[2022-01-22] MEDS: POTASSIUM CHLORIDE 10 MEQ TABCR PO SCH ×2 (08:23→20:15)
[2022-01-22] MEDS: DOCUSATE SODIUM 100 MG CAP PO SCH ×2 (08:23→20:16)
[2022-01-22] MEDS: GABAPENTIN 300 MG CAP PO SCH ×3 (08:24→20:06)
[2022-01-22] MEDS: DOXYCYCLINE HYCLATE 100 MG CAP PO SCH ×2 (08:24→20:05)
[2022-01-22] MEDS: FERROUS SULFATE 325 MG TAB PO SCH (08:24)
[2022-01-22] MEDS: carvediloL 12.5 MG TAB PO SCH ×2 (08:24→20:06)
[2022-01-22] MEDS: FUROSEMIDE 40 MG/4 ML VIAL IV SCH ×2 (08:25→15:53)
[2022-01-22] MEDS: PANTOprazole 40 MG TAB PO SCH ×2 (08:25→20:06)
[2022-01-22] MEDS: lisinopril 40 MG TAB PO SCH (08:25)
[2022-01-22] MEDS: PRAMIPEXOLE DIHYDROCHLO 0.25 MG TAB PO SCH ×2 (08:25→20:05)
[2022-01-22 09:10] LABS: BUN Creatinine Ratio 26.4 (10-20); Calcium 8.3 mg/dl (8.5-10.1); Creatinine Clr Calc Pharmacy 51.2 ml/min; Est GFR (African American) 55.7 ml/min; Est GFR (Non-African American) 48.1 ml/min; Potassium 4.3 mmol/L (3.5-5.1)
--- NOTE | 2022-01-22 11:03 | Cardiology Progress Note ---
Date of Service January 22, 2022 Assessment & Plan (1) Acute heart failure with preserved ejection fraction (HFpEF): (2) Normal coronary angiogram: (3) Moderate pulmonary hypertension: (4) Hypoxia: (5) HTN (hypertension): (6) Chronic anticoagulation: Plan: Volume status appears optimized, can discontinue IV diuretic. Etiology for her chronic dyspnea appears to be multifactorial, including underlying pulmonary hypertension (secondary to prior pulmonary embolism), sleep apnea, heart failure with preserved ejection fraction, and possibly restrictive or other underlying lung disease. The other night she had a desaturation which was out of proportion to the minor degree of volume overload she has demonstrated, suggesting sleep apnea may play a significant role in her nocturnal dyspnea. Recommended repeat trial of CPAP. Should be evaluated for supplemental oxygen if she is developing nocturnal hypoxemia (although this may be remedied by CPAP). Outpatient spirometry may be helpful in assessing any underlying lung disease. As previously noted, would discharge on furosemide 60 mg daily with sliding scale regimen to maintain weight near her current actual weight (should be obt ained on scale rather than bed scale). BP improved on increase carvedilol dose. Continue current lisinopril dose. On warfarin for chronic anticoagulation post pulmonary embolism. Please arrange for follow-up with Radha Toledo PA-C in heart failure clinic. Admission and Anticipated Discharge Date Admission Date: January 18, 2022 Subjective Patient slept better last night. No dyspnea at rest, but she has been inactive and does note dyspnea with minimal activity. No chest pain, palpitations, or lightheadedness. Minor headache this morning, she notes that she has this virtually every morning. Telemetry showed sinus rhythm in the 60s. Physical Exam Physical Exam: No distress. I/O -1780 Weight unreliable (8 pound weight gain overnight?) Normotensive. Pulse 64 bpm and regular. Skin: no ecchymoses or generalized lesions. HEENT: unremarkable. Neck: Jugular venous pulse just above the clavicle at 90 degrees with increased respiratory variation, no obvious carotid bruits. Lungs: clear. No wheezing. No accessory muscle use. Cardiac: regular rhythm, 2/6 apical holosystolic murmur rating to the axilla, no diastolic murmur or gallop. Abdomen: benign. Extremities: 1+ pretibial edema with rubor, good capillary refill (1 second). Neurologic: normal affect, nonfocal. Results & Data ([facility]) Vital Signs (Past 12 Hours) Vital Signs Temp Pulse Resp BP BP Pulse Ox 01/22/22 07:36 97.9 F 64 20 105/67 97 01/22/22 02:49 97.5 F L 64 18 116/73 98 01/21/22 22:57 97.3 F L 70 18 118/75 97 Laboratory Results Normal electrolytes, BUN 29 (19 yesterday), creatinine 1.1 (0.88 yesterday) PG Care Time/CCT Total # of Minutes Spent Total Time Spent with Patient: Total time spent is greater than 50% in coordination of care (as documented) at patient's floor/unit and/or counseling patient: Coding Level of Care Code 37730 Subseq Hosp Care Lvl 3 Diagnoses Acute heart failure with preserved ejection fraction (HFpEF) I50.31 Normal coronary angiogram HTN (hypertension) I10 Chronic anticoagulation Z79.01 Moderate pulmonary hypertension I27.20 Hypoxia R09.02
[2022-01-22] MEDS: COLESTIPOL HCL 1 GM TAB PO SCH ×2 (11:09→22:13)
--- NOTE | 2022-01-22 13:48 | XRay Report ---
XR chest 1V portable HISTORY: 76 years-old Female Pulm edema acute shortness of breath with pulmonary edema COMPARISON: Chest radiograph 01/21/2022 TECHNIQUE: Portable AP view of the chest FINDINGS: Cardiac silhouette is enlarged. Calcified plaque of the thoracic aorta. No pneumothorax, large pleura l effusion or overt pulmonary edema. Unchanged right hemidiaphragmatic elevation. Linear left lung ba se opacities suggest atelectasis/scarring. There are vascular congestion with stable to slightly impr gretchen interstitial coarsening. Degenerative changes of the spine. Partially imaged lumbar spinal fusio n hardware. Bilateral shoulder total joint arthroplasties. IMPRESSION: Cardiomegaly with stable to slightly improved pulmonary edema. ACT 112: Negative or not required by law. The above report was generated using voice recognition software. It may contain grammatical, syntax o r spelling errors. Electronically signed by: Emery Tillman M.D. 01/22/2022 1:46 PM
[2022-01-22] MEDS: WARFARIN SOD 7.5 MG TAB PO SCH (15:53)
--- NOTE | 2022-01-22 15:55 | Hospitalist Progress Note ---
Date of Service January 22, 2022 Assessment & Plan (1) CHF (congestive heart failure): Plan: Acute on Chronic Diastolic CHF --CXR:Decreased inspiration with evidence for mild central vascular congestion. --Venous Doppler:No DVT within the right or left lower extremity. -Echo outpatient on 01/13: EF 50-55%. Mild basal to mid lateral, inferolateral hypokinesis. Grade 2 diastolic dysfunction. Mildly dilated RV with normal function. Mild to moderate mitral regurgitation. Mitral valve prolapse. -Failure of outpatient increase of diuretics- was on lasix 40 mg daily and increased to 80 mg daily with no significant improvement. -BNP 220 -Cardiac Cath: Normal coronary arteries -Continue Lasix 40 mg twice daily Appreciate cardiology input Monitor I's and O's, daily weight, volume status Continue lisinopril Increase carvedilol to 12.5 mg twice daily Needs follow-up with cardiology upon discharge Chest x-ray today showed pulmonary edema Likely plan to be transition to Lasix 60 mg daily upon discharge Chest x-raytoday showed slightly improved pulmonary edema Plan to transition to p.o. Lasix in 1 to 2 days Ordered nocturnal oximetry study Will need 2 step prior to discharge Possible leg cellulitis Empirically on doxycycline wound care consulted (2) Chronic anticoagulation: Plan: - H/O DVT, On coumadin at 5 mg daily except 2.5 mg on Fridays - subtherapeutic INR 1.1 Will give coumadin 7.5mg today (3) Hypothyroidism: Plan: - Continue levothyroxine (4) HTN (hypertension): Plan: - Continue coreg, lisinopril (5) Anemia: Plan: Blood work suggestive of iron deficiency anemia Started on iron supplements no signs of overt bleeding Monitor CBC (6) CKD (chronic kidney disease), stage III: Plan: - Cr stable (7) Restless leg syndrome: Plan: - Continue mirapex (8) Cellulitis: Plan: Management as above (9) Chronic venous insufficiency: Plan: - As above (10) JOSE (generalized anxiety disorder): Plan: Continue ativan, gabapentin, klonopin, as scheduled. (11) Morbid obesity with BMI of 50.0-59.9, adult: Plan: - BMI of 52.4, encourage diet and exercise once shortness of breath and fluid overload is improved. - Egg And Spice Mixer consult DVT px: coumadin, teds, scds CODE STATUS: Full code Admission and Anticipated Discharge Date Admission Date: January 18, 2022 Subjective Patient is seen and examined at bedside Reports dyspnea on exertion Also has some headache this morning CXR today showed slightly improved pulmonary edema Denies any chest pain, dizziness, nausea, abdominal pain Offers no other complaints Review of Systems Review of Systems: All systems reviewed & are unremarkable except as noted in Subjective Physical Exam Physical Exam: Physical Exam: Vitals signs as noted above General Appearance:Obese, no apparent distress Head: normocephalic, Atraumatic Eyes: normal inspection, EOMI Neck: supple, Trachea midline Respiratory/Chest: Normal breath sounds, minimal basal crackles, No accessory muscle use Cardiovascular: S1, S2, + murmur Abdomen/GI:Soft, Non tender, Bowel sounds present Extremities/Musculoskeletal:normal inspection, B/L LE edema, +Scabs Neurologic/Psych:AAOX3, grossly no focal neurological deficits Skin: normal color, warm Results & Data Results & Data ([facility]) Vital Signs (Past 12 Hours) Vital Signs Temp Pulse Pulse Resp BP BP Pulse Ox 01/22/22 15:42 36.3 C L 64 20 113/64 100 01/22/22 15:25 60 01/22/22 11:16 36.5 C 67 20 110/67 93 01/22/22 11:12 62 01/22/22 07:36 36.6 C 64 20 105/67 97 Laboratory Results [facility] 01/22/22 07:34 Sodium 137 Potassium 4.3 Chloride 100 Carbon Dioxide 33 H BUN 29 H Creatinine 1.10 Glucose 99 Calcium 8.3 L
[2022-01-22] MEDS ORDERED: WARFARIN SOD 2.5 MG TAB PO SCH (16:00)
[2022-01-22] MEDS: AMITRIPTYLINE HCL 25 MG TAB PO SCH (20:05)
[2022-01-22] MEDS: oxyCODONE HCL IR 5 MG TAB (IMMEDIATE RELEASE) PO PRN (20:15)
[2022-01-23] MEDS: LEVOTHYROXINE SODIUM 112 MCG TABLET PO SCH (05:36)
[2022-01-23] MEDS: oxyCODONE HCL IR 5 MG TAB (IMMEDIATE RELEASE) PO PRN ×3 (05:39→21:40)
[2022-01-23 07:06] LABS: INR 1.2 (0.9-1.1)
[2022-01-23 07:22] LABS: BUN Creatinine Ratio 39.6 (10-20); Calcium 8.3 mg/dl (8.5-10.1); Creatinine Clr Calc Pharmacy 61.8 ml/min; Est GFR (Non-African American) 60.4 ml/min; Potassium 4.2 mmol/L (3.5-5.1)
[2022-01-23] MEDS: DOXYCYCLINE HYCLATE 100 MG CAP PO SCH ×2 (07:39→21:42)
[2022-01-23] MEDS: PANTOprazole 40 MG TAB PO SCH ×2 (07:40→21:43)
[2022-01-23] MEDS: carvediloL 12.5 MG TAB PO SCH ×2 (07:40→21:42)
[2022-01-23] MEDS: FERROUS SULFATE 325 MG TAB PO SCH (07:40)
[2022-01-23] MEDS: GABAPENTIN 300 MG CAP PO SCH ×3 (07:40→21:42)
[2022-01-23] MEDS: lisinopril 40 MG TAB PO SCH (07:40)
[2022-01-23] MEDS: PRAMIPEXOLE DIHYDROCHLO 0.25 MG TAB PO SCH ×2 (07:41→21:43)
[2022-01-23] MEDS: DOCUSATE SODIUM 100 MG CAP PO SCH ×2 (07:44→21:40)
[2022-01-23] MEDS: FUROSEMIDE 40 MG/4 ML VIAL IV SCH ×2 (07:45→16:57)
[2022-01-23] MEDS: POTASSIUM CHLORIDE 10 MEQ TABCR PO SCH ×2 (07:45→22:06)
--- NOTE | 2022-01-23 08:42 | Cardiology Progress Note ---
Date of Service January 23, 2022 Assessment & Plan (1) Acute heart failure with preserved ejection fraction (HFpEF): (2) Normal coronary angiogram: (3) Moderate pulmonary hypertension: (4) Hypoxia: (5) HTN (hypertension): (6) Chronic anticoagulation: Plan: Volume status appears euvolemic to minimally hypervolemic. Changed from IV to oral diuretic, continue to monitor input/output and daily weight (ideally not using bed scale, since these weights have been unreliable). Episodes of hypoxemia are out of proportion to her benign appearing chest x-ray (minimal vascular congestion) and she has marked neck pain respiratory variation, these findings suggest underlying pulmonary disease as a role as well. As noted, as outpatient would recommend spirometry and further pulmonary evaluation as well as reconsidering CPAP and/or nocturnal supplemental oxygen. BP controlled on increased carvedilol dose. Continue current lisinopril dose. On warfarin for chronic anticoagulation post pulmonary embolism, INR still subtherapeutic. Please arrange for follow-up with Radha Toledo PA-C in heart failure clinic. Admission and Anticipated Discharge Date Admission Date: January 18, 2022 Subjective Patient slept reasonably well last night, no orthopnea or PND. She feels she may have "slept the wrong way" and complains of some right posterior neck discomfort that is positional. She also notes her "usual" morning minor headache. She denies any chest pain, dyspnea, or palpitations. Of note, her overnight oximetry showed a low of 73% with a mean of 94% saturation. Physical Exam Physical Exam: No distress. I/O -1490 Weight unreliable Normotensive. Pulse 68 bpm and regular. Skin: no ecchymoses or generalized lesions. HEENT: unremarkable. Neck: Jugular venous pulse just above the clavicle at 90 degrees with increased respiratory variation, no obvious carotid bruits. Lungs: clear. No wheezing. No accessory muscle use. Cardiac: regular rhythm, 2/6 apical holosystolic murmur rating to the axilla, no diastolic murmur or gallop. Abdomen: benign. Extremities: 1+ pretibial edema with rubor, good capillary refill (1 second). Neurologic: normal affect, nonfocal. Results & Data ([facility]) Laboratory Results Normal electrolytes, BUN 36, creatinine 0.91 (29 and 1.1 yesterday) Diagnostic Findings Chest x-ray yesterday showed no overt pulmonary edema but had some improving but persistent vascular congestion. PG Care Time/CCT Total # of Minutes Spent Total Time Spent with Patient: Total time spent is greater than 50% in coordination of care (as documented) at patient's floor/unit and/or counseling patient: Coding Level of Care Code 00084 Subseq Hosp Care Lvl 3 Diagnoses Acute heart failure with preserved ejection fraction (HFpEF) I50.31 Normal coronary angiogram Moderate pulmonary hypertension I27.20 Hypoxia R09.02 HTN (hypertension) I10 Chronic anticoagulation Z79.01
[2022-01-23] MEDS: COLESTIPOL HCL 1 GM TAB PO SCH ×2 (10:08→21:44)
--- NOTE | 2022-01-23 14:57 | Hospitalist Progress Note ---
Date of Service January 23, 2022 Assessment & Plan (1) CHF (congestive heart failure): Plan: Acute on Chronic Diastolic CHF --CXR:Decreased inspiration with evidence for mild central vascular congestion. --Venous Doppler:No DVT within the right or left lower extremity. -Echo outpatient on 01/13: EF 50-55%. Mild basal to mid lateral, inferolateral hypokinesis. Grade 2 diastolic dysfunction. Mildly dilated RV with normal function. Mild to moderate mitral regurgitation. Mitral valve prolapse. -Failure of outpatient increase of diuretics- was on lasix 40 mg daily and increased to 80 mg daily with no significant improvement. -BNP 220 -Cardiac Cath: Normal coronary arteries Appreciate cardiology input Monitor I's and O's, daily weight, volume status Continue lisinopril Increased carvedilol to 12.5 mg twice daily Needs follow-up with cardiology upon discharge Transition IV to PO Lasix 60 mg daily Nocturnal oximetry study:Needs 2 L of Oxygen at bedtime 2 step pending Currently saturating well on room air Possible leg cellulitis Empirically on doxycycline wound care consulted (2) Chronic anticoagulation: Plan: - H/O DVT, On coumadin at 5 mg daily except 2.5 mg on Fridays - subtherapeutic INR 1.2 Continue coumadin 7.5mg today (3) Hypothyroidism: Plan: - Continue levothyroxine (4) HTN (hypertension): Plan: - Continue coreg, lisinopril (5) Anemia: Plan: Blood work suggestive of iron deficiency anemia Started on iron supplements no signs of overt bleeding Monitor CBC (6) CKD (chronic kidney disease), stage III: Plan: - Cr stable (7) Restless leg syndrome: Plan: - Continue mirapex (8) Cellulitis: Plan: Management as above (9) Chronic venous insufficiency: Plan: - As above (10) JOSE (generalized anxiety disorder): Plan: Continue ativan, gabapentin, klonopin, as scheduled. (11) Morbid obesity with BMI of 50.0-59.9, adult: Plan: - BMI of 52.4, encourage diet and exercise once shortness of breath and fluid overload is improved. - Division Merchandise Manager consult DVT px: coumadin, teds, scds CODE STATUS: Full code Admission and Anticipated Discharge Date Admission Date: January 18, 2022 Subjective Patient is seen and examined at bedside States feeling well Dyspnea on exertion resolved Saturating well on room air Denies any chest pain, dizziness, nausea, abdominal pain No new complaints Review of Systems Review of Systems: All systems reviewed & are unremarkable except as noted in Subjective Physical Exam Physical Exam: Physical Exam: Vitals signs as noted above General Appearance:Obese, no apparent distress Head: normocephalic, Atraumatic Eyes: normal inspection, EOMI Neck: supple, Trachea midline Respiratory/Chest: Normal breath sounds, CTA, No accessory muscle use Cardiovascular: S1, S2, + murmur Abdomen/GI:Soft, Non tender, Bowel sounds present Extremities/Musculoskeletal:normal inspection, B/L LE edema, +Scabs Neurologic/Psych:AAOX3, grossly no focal neurological deficits Skin: normal color, warm Results & Data Results & Data ([facility]) Vital Signs (Past 12 Hours) Vital Signs Temp Pulse Pulse Resp BP BP Pulse Ox 01/23/22 12:02 36.6 C 64 18 132/62 98 01/23/22 06:46 37.0 C 68 20 133/77 94 01/23/22 05:01 69 01/23/22 04:46 95 01/23/22 03:25 36.7 C 67 20 122/75 95 Pulse Ox 01/23/22 12:02 01/23/22 06:46 01/23/22 05:01 93 01/23/22 04:46 01/23/22 03:25 Laboratory Results BMP 01/23/22 06:17 Sodium 137 Potassium 4.2 Chloride 99 Carbon Dioxide 32 BUN 36 H Creatinine 0.91 Glucose 99 Calcium 8.3 L
[2022-01-23] MEDS: WARFARIN SOD 7.5 MG TAB PO SCH (16:51)
[2022-01-23] MEDS: AMITRIPTYLINE HCL 25 MG TAB PO SCH (21:42)
[2022-01-24] MEDS: LEVOTHYROXINE SODIUM 112 MCG TABLET PO SCH (06:22)
[2022-01-24 06:25] LABS: Hemoglobin 8.5 g/dL (12.0-16.0); Mean Corpuscular Hemoglobin 25.1 pg (25-34); Mean Corpuscular Hgb Conc 30.4 g/dL (32-36); Mean Corpuscular Volume 82.6 fL (80-100); Mean Platelet Volume 11.2 fL (7.4-10.4); Platelet Count 174 K/uL (130-400); RDW Coefficient of Variation 16.9 % (11.5-14.5); RDW Standard Deviation 51.5 fL (36.4-46.3); Red Blood Count 3.39 M/uL (4.2-5.4)
[2022-01-24 06:36] LABS: INR 1.5 (0.9-1.1); Prothrombin Time 15.2 Seconds (9.0-12.0)
[2022-01-24 06:46] LABS: BUN Creatinine Ratio 37.2 (10-20); Calcium 8.3 mg/dl (8.5-10.1); Creatinine Clr Calc Pharmacy 49.6 ml/min; Est GFR (African American) 53.9 ml/min; Est GFR (Non-African American) 46.5 ml/min; Potassium 4.4 mmol/L (3.5-5.1)
--- NOTE | 2022-01-24 08:55 | Cardiology Progress Note ---
Date of Service January 24, 2022 Assessment & Plan (1) Acute heart failure with preserved ejection fraction (HFpEF): (2) Normal coronary angiogram: (3) Moderate pulmonary hypertension: (4) Hypoxia: (5) HTN (hypertension): (6) Chronic anticoagulation: Plan: Volume status appears euvolemic. Changed from IV to oral diuretic with good results. Discussed at length the importance of daily weights, salt/sodium restriction, and adjusting her diuretic regimen based on her weight. She will be working closely with Radha Toledo PA-C in heart failure clinic as an outpatient. She appears to have some concurrent reason for her hypoxia, there is some element of sleep apnea but may also be underlying pulmonary disease given occurrence of hypoxia out of proportion to her minimal congestion. Further pulmonary work-up as outpatient is recommended. BP controlled on increased carvedilol dose. Continue current lisinopril dose. On warfarin for chronic anticoagulation post pulmonary embolism, INR approaching therapeutic. Cardiac status stable, will sign off. Please contact if change in clinical status. Thank you. Admission and Anticipated Discharge Date Admission Date: January 18, 2022 Subjective Patient slept well last night, no orthopnea or PND. She also notes her "usual" morning minor headache. She denies any chest pain, dyspnea, or palpitations. She felt well this morning and was receptive to the prospect of returning home soon. Physical Exam Physical Exam: No distress. I/O -1255 Weight unreliable Normotensive. Pulse 72 bpm and regular. Skin: no ecchymoses or generalized lesions. HEENT: unremarkable. Neck: Jugular venous pulse at the clavicle at 90 degrees with increased respiratory variation, no obvious carotid bruits. Lungs: clear. No wheezing. No accessory muscle use. Cardiac: regular rhythm, 2/6 apical holosystolic murmur rating to the axilla, no diastolic murmur or gallop. Abdomen: benign. Extremities: 1+ pretibial edema with rubor, good capillary refill (1 second). Neurologic: normal affect, nonfocal. Results & Data ([facility]) Vital Signs (Past 12 Hours) Vital Signs Temp Pulse Pulse Resp BP Pulse Ox 01/24/22 07:12 72 01/24/22 06:44 98.2 F 62 20 106/65 95 01/24/22 03:25 98.4 F 63 20 109/70 96 01/23/22 23:05 98.6 F 71 20 111/67 94 Laboratory Results Normal electrolytes, BUN 42, creatinine 1.13 (0.91 yesterday, 1.1 the day before). INR 1.5. PG Care Time/CCT Total # of Minutes Spent Total Time Spent with Patient: Total time spent is greater than 50% in coordination of care (as documented) at patient's floor/unit and/or counseling patient: Coding Level of Care Code 59813 Subseq Hosp Care Lvl 3 Diagnoses Acute heart failure with preserved ejection fraction (HFpEF) I50.31 Normal coronary angiogram Moderate pulmonary hypertension I27.20 Hypoxia R09.02 HTN (hypertension) I10 Chronic anticoagulation Z79.01
[2022-01-24] MEDS ORDERED: FUROSEMIDE 20 MG TAB PO SCH (09:00)
[2022-01-24] MEDS: PRAMIPEXOLE DIHYDROCHLO 0.25 MG TAB PO SCH (09:57)
[2022-01-24] MEDS: FERROUS SULFATE 325 MG TAB PO SCH (09:58)
[2022-01-24] MEDS: COLESTIPOL HCL 1 GM TAB PO SCH (09:58)
[2022-01-24] MEDS: lisinopril 40 MG TAB PO SCH (09:58)
[2022-01-24] MEDS: PANTOprazole 40 MG TAB PO SCH (09:59)
[2022-01-24] MEDS: GABAPENTIN 300 MG CAP PO SCH ×2 (09:59→14:11)
[2022-01-24] MEDS: DOXYCYCLINE HYCLATE 100 MG CAP PO SCH (09:59)
[2022-01-24] MEDS: carvediloL 12.5 MG TAB PO SCH (10:00)
[2022-01-24] MEDS: DOCUSATE SODIUM 100 MG CAP PO SCH (10:10)
[2022-01-24] MEDS: POTASSIUM CHLORIDE 10 MEQ TABCR PO SCH (10:10)
[2022-01-24] MEDS: oxyCODONE HCL IR 5 MG TAB (IMMEDIATE RELEASE) PO PRN (10:30)
--- NOTE | 2022-01-24 10:53 | Hospitalist Progress Note ---
Date of Service January 24, 2022 Assessment & Plan (1) CHF (congestive heart failure): Plan: Acute on Chronic Diastolic CHF --CXR:Decreased inspiration with evidence for mild central vascular congestion. --Venous Doppler:No DVT within the right or left lower extremity. -Echo outpatient on 01/13: EF 50-55%. Mild basal to mid lateral, inferolateral hypokinesis. Grade 2 diastolic dysfunction. Mildly dilated RV with normal function. Mild to moderate mitral regurgitation. Mitral valve prolapse. -Failure of outpatient increase of diuretics- was on lasix 40 mg daily and increased to 80 mg daily with no significant improvement. -BNP 220 -Cardiac Cath: Normal coronary arteries Appreciate cardiology input Monitor I's and O's, daily weight, volume status Continue lisinopril Increased carvedilol to 12.5 mg twice daily Needs follow-up with cardiology upon discharge Transition IV to PO Lasix 60 mg daily Nocturnal oximetry study:Needs 2 L of Oxygen at bedtime Currently saturating well on 2L 2 step pending Plan to discharge as able once oxygen is arranged Possible leg cellulitis Empirically on doxycycline wound care consulted (2) Chronic anticoagulation: Plan: - H/O DVT, On coumadin at 5 mg daily except 2.5 mg on Fridays - subtherapeutic INR 1.5 Continue coumadin 7.5mg today (3) Hypothyroidism: Plan: - Continue levothyroxine (4) HTN (hypertension): Plan: - Continue coreg, lisinopril (5) Anemia: Plan: Blood work suggestive of iron deficiency anemia Started on iron supplements no signs of overt bleeding Monitor CBC (6) CKD (chronic kidney disease), stage III: Plan: - Cr stable (7) Restless leg syndrome: Plan: - Continue mirapex (8) Cellulitis: Plan: Management as above (9) Chronic venous insufficiency: Plan: - As above (10) JOSE (generalized anxiety disorder): Plan: Continue ativan, gabapentin, klonopin, as scheduled. (11) Morbid obesity with BMI of 50.0-59.9, adult: Plan: - BMI of 52.4, encourage diet and exercise once shortness of breath and fluid overload is improved. - Scientific Process Operator consult DVT px: coumadin, teds, scds CODE STATUS: Full code Admission and Anticipated Discharge Date Admission Date: January 18, 2022 Subjective Patient is seen and examined at bedside Slept well overnight No new complaints 2 step pending Denies any chest pain, dyspnea, dizziness, nausea, abdominal pain Review of Systems Review of Systems: All systems reviewed & are unremarkable except as noted in Subjective Physical Exam Physical Exam: Physical Exam: Vitals signs as noted above General Appearance:Obese, no apparent distress Head: normocephalic, Atraumatic Eyes: normal inspection, EOMI Neck: supple, Trachea midline Respiratory/Chest: Normal breath sounds, CTA, No accessory muscle use Cardiovascular: S1, S2, + murmur Abdomen/GI:Soft, Non tender, Bowel sounds present Extremities/Musculoskeletal:normal inspection, B/L LE edema, +Scabs Neurologic/Psych:AAOX3, grossly no focal neurological deficits Skin: normal color, warm Results & Data Results & Data ([facility]) Vital Signs (Past 12 Hours) Vital Signs Temp Pulse Pulse Resp BP Pulse Ox 01/24/22 07:12 72 01/24/22 06:44 36.8 C 62 20 106/65 95 01/24/22 03:25 36.9 C 63 20 109/70 96 01/23/22 23:05 37.0 C 71 20 111/67 94 Laboratory Results Short CBC 01/24/22 Range/Units 06:03 WBC 4.20 L (4.8-10.8) K/uL Hgb 8.5 L (12.0-16.0) g/dL Hct 28.0 L (37-47) % Plt Count 174 (130-400) K/uL BMP 01/24/22 06:03 Sodium 136 Potassium 4.4 Chloride 98 Carbon Dioxide 33 H BUN 42 H Creatinine 1.13 Glucose 101 H Calcium 8.3 L
--- NOTE | 2022-01-24 13:24 | Discharge Summary ---
Date of Service January 24, 2022 Admission HPI Per Admitting Provider This is a 76 yo F with PMhx of HTN, diastolic CHF with recent echo on 01/13/22 showing new lateral inferolateral wall motion abnormality, Mitral regurg, history of DVT on Coumadin, CKD stage III, anemia, generalized anxiety disorder, venous stasis ulcers and restless legs, who presents with refractory edema and shortness of breath to the ER. She has been following with Dr. Cobb as an outpatient and she recently had an increase made in her Lasix to 40 mg twice daily up from only 40 mg daily, however has not seen significant improvement in her swelling. She has seen increased amounts of urination since increasing the Lasix, however does not notice an improvement in lower extremity edema. There are several ulcerations which are now weeping secondary to significant few fluid accumulation in her legs. She tells me that she is unaware of her dry weight, but states that in the past year she has gained 90 pounds, going from 201 to 292 today in the office. She reports that she is significantly short of breath today and was barely able to run the vacuum earlier. She does live at home by herself and typically can perform all ADLs without any difficulty. At baseline she does not require any supplemental O2, and previously did wear CPAP however reports she could not tolerate the mask. On last Tuesday she also notes that while getting herself dressed she felt a pop in her lower abdomen and reports that it is somewhat tender and sore over her suprapubic region. She has a scar status post hysterectomy 30 years ago where she is slightly more tender. She denies any changes in appetite, bowel habits, fluid intake, nausea or vomiting. Pt notes that she got an echo done within the past week, and was being scheduled to have a cardiac cath as outpatient on 01/25. She has underwent cardiac cath before 20 + years ago but did not have any stents placed. Admission Exam Per Admitting Provider Physical Exam Physical Exam: General: awake, alert, no apparent distress, morbidly obese with BMI of 52.4 Head: Normocephalic, atraumatic ENT: PERRL, EOMI, no pharyngeal exudate, mucous membranes moist Chest: Diminished breath sounds throughout due to body habitus however fairly clear to auscultation, on room air, take some breaths to finish sentences during my examination, no adventitious breath sounds Cardiac: Regular rate and rhythm, + 2/6 systolic murmur, no JVD, normal peripheral pulses, good capillary refill Abdominal: NABS x 4 quadrants, soft, nondistended, nontender to palpation, no rebound or guarding, tenderness over vertical scar from umbilicus to suprapubic region status post hysterectomy, no erythema, no bulging, no palpable hernia. Extremities: Diffuse edema, 1+ pitting, appears like lymphedema, + peripheral edema and mild erythema, some warmth, multiple small weeping ulcerations BLE, calfs nontender to palpation Psych: Anxious mood and affect Neuro: AAO x 3, strength intact bilaterally and rated 5/5, no motor deficits, speech is clear, no peripheral sensory deficits Principal Diagnosis Acute on Chronic Diastolic CHF Possible leg cellulitis Discharge Data Allergies Allergy/AdvReac Type Severity Reaction Status Date / Time No Known Allergies Allergy Verified 01/18/22 16:08 Consultations 01/18/22 17:37 ED Decision to Admit Stat 01/18/22 20:46 Consult Cardiology Routine Procedures Performed Operation Date: 01/20/22 11:00 Actual Procedures s Cineradiography w/Routine Exam - Audi Wells MD, PhD p Cath, Right and Left Heart - Audi Wells MD, PhD Ordered Studies 01/18/22 18:48 US venous doppler LE BI Stat 01/20/22 06:57 CL Cath Imgs for PACS use only Routine Hospital Course (1) CHF (congestive heart failure): Acute on Chronic Diastolic CHF --CXR:Decreased inspiration with evidence for mild central vascular congestion. --Venous Doppler:No DVT within the right or left lower extremity. -Echo outpatient on 01/13: EF 50-55%. Mild basal to mid lateral, inferolateral hypokinesis. Grade 2 diastolic dysfunction. Mildly dilated RV with normal function. Mild to moderate mitral regurgitation. Mitral valve prolapse. -Failure of outpatient increase of diuretics- was on lasix 40 mg daily and increased to 80 mg daily with no significant improvement. -BNP 220 -Cardiac Cath: Normal coronary arteries Appreciate cardiology input Monitor I's and O's, daily weight, volume status Continue lisinopril Increased carvedilol to 12.5 mg twice daily Needs follow-up with cardiology upon discharge Transition IV to PO Lasix 60 mg daily Nocturnal oximetry study:Needs 2 L of Oxygen at bedtime Currently saturating well on 2L 2 step pending Plan to discharge as able once oxygen is arranged Possible leg cellulitis Empirically on doxycycline wound care consulted (2) Chronic anticoagulation: - H/O DVT, On coumadin at 5 mg daily except 2.5 mg on Fridays - subtherapeutic INR 1.5 Continue coumadin 7.5mg today (3) Hypothyroidism: - Continue levothyroxine (4) HTN (hypertension): - Continue coreg, lisinopril (5) Anemia: Blood work suggestive of iron deficiency anemia Started on iron supplements no signs of overt bleeding Monitor CBC (6) CKD (chronic kidney disease), stage III: - Cr stable (7) Restless leg syndrome: - Continue mirapex (8) Cellulitis: Management as above (9) Chronic venous insufficiency: - As above (10) JOSE (generalized anxiety disorder): Continue ativan, gabapentin, klonopin, as scheduled. (11) Morbid obesity with BMI of 50.0-59.9, adult: - BMI of 52.4, encourage diet and exercise once shortness of breath and fluid overload is improved. - Ingot Supervisor consult DVT px: coumadin, teds, scds CODE STATUS: Full code Total Time Total Time Spent Total Time Spent (In Minutes): 48 minutes Discharge Plan Discharge Items Patient Disposition: Home - Self-Care Reason For Visit: CHF EXACERBATION Discharge Diagnosis: Acute on Chronic Diastolic CHF Possible leg cellulitis Activity: Per Instructions section Exercise/Sports: Gradually increase as tolerated Non-emergency contact: Primary Care Provider and Bleach Range Operator Call non-emergency contact if: you have any medication questions, your symptoms worsen, your pain is concerning for you and you have a fever Follow-up/Referrals: Barbara Toledo PA-C [Physician Brush Stainer] - 02/02/22 10:30 am (Congestive Heart Failure Program Appointment Information Early follow up is essential to managing your heart failure. An appointment has been scheduled for you with the [facility] Heart Failure Program within 7 days of discharge. Anticipate this visit to be 30-60 minutes long. Please expect a pharmacy resident phone call from one of our nurses approximately 48 hours from discharge. They will also be placing an order for lab work to be completed 1-2 days prior to your heart failure follow up appointment. Please be sure to have this done so we can go over the results when you come in. Office Location The cardiology office building is located in front of the hospital at [address] [facility]. Bring the following with you to your follow-up doctor appointments: Please bring your daily weight log any discharge paperwork all of your medication bottles with you to this visit. ) Tristan Conde MD [Primary Care Provider] - (Date & Time 01/26/2022 11:20 AM Provider Jeff Gao MD [facility] ) Diet: Heart Healthy and Low Sodium (2gm) Fluids: 2000ml (8 cups) Addtl Attending Provider Instructions: --Follow-up with your primary care physician on 01/26/2022 11:20 AM --Follow-up with your irrigator sprinkling system Barbara Toledo PA-C on February 02, 2022 at 10:30 AM as scheduled Follow-up with your lead cargoman for lung function test as recommended by your irrigator sprinkling system. Follow-up with Coumadin clinic for management of Coumadin dosing and monitoring your PT/INR --Use Oxygen 2 liters via nasal cannula at bedtime as advised --Get sleep study to rule out sleep apnea as recommended by your Bleach Range Operator --Your PT/INR is 1.5 today 01/24/22. Take Coumadin 7.5 mg today. Further management as recommended by Coumadin Clinic --Medication Changes: --Start taking doxycycline 100 mg twice a day for 3 more days for leg cellulitis --Your carvedilol is increased to 12.5 mg twice a day --Your Lasix is increased to 60 mg daily --Start taking ferrous sulfate 325 mg daily Seek immediate medical attention if your symptoms reoccur or worsen Please take all medications as instructed on discharge list below. Please call if you have any questions or problems. You can reach a [facility] hospitalist on duty at [facility] 24 hours a day by calling [phone] Add Director Emergency Provider Instructions: Call your Primary Care doctor if any of the following symptoms or problems start or get worse: * Shortness of breath or difficulty breathing * Wake up at night short of breath * Chest pain * Cough * Swelling of your hands, feet, or legs * More fatigued or tired with your normal activity * Palpitations - sudden fast heart beats WEIGHT * Weigh yourself every morning after using the bathroom. * Use the same scale. * Wear the same amount of clothing. * Write your weight down on a chart. * Call your Primary Care doctor if you gain more than 2-3 pounds in 1-2 days. MEDICATIONS * Use this discharge instruction sheet for medication instructions. * Take your medications at the time your doctor ordered. * Do not skip a dose of your medicines. * If you miss a dose of medicine, take it as soon as possible, but DO NOT DOUBLE A DOSE. * Read your medicine information when you get home. * Know all of the side effects of your medicine. If in doubt, ask your pharmacist * Call your Primary Care doctor's office if you have any side effects. * Be sure all of your doctors know what medicine and herbs you take (including cold, flu, and herbal medicine). Take the following with you to your follow-up doctor appointments: * Weight Chart * Medication List * List of questions Do not drink excessive alcohol, beer or wine. Pending Studies at Discharge: No Stand-Alone Forms: My [facility] [place], Smoking Cessation Medications and DC Order Prescriptions: New doxycycline hyclate 100 mg Capsule 100 mg PO BID Qty: 6 RF: 0 carvedilol 12.5 mg Tablet 12.5 mg PO BID Qty: 60 RF: 1 ferrous sulfate 325 mg (65 mg iron) Tablet,Delayed Release (Dr/Ec) 325 mg PO QAM Qty: 30 RF: 0 furosemide [Lasix] 40 mg tablet 40 mg PO DAILY Qty: 30 RF: 1 Continued gabapentin 100 mg capsule 300 mg PO TID RF: 0 docusate sodium 100 mg capsule 100 mg PO BID Qty: 60 RF: 0 potassium chloride [Klor-Con 10] 10 mEq tablet extended release 10 meq PO BID Qty: 180 RF: 3 lorazepam 0.5 mg tablet 0.5 mg PO TID PRN (Reason: anxiety) Qty: 90 RF: 0 oxycodone 5 mg tablet 5 mg PO Q4H PRN (Reason: pain) Qty: 60 RF: 0 pantoprazole 40 mg tablet,delayed release (DR/EC) 40 mg PO BID Qty: 180 RF: 3 lisinopril 40 mg tablet 40 mg PO QAM RF: 0 pramipexole 0.25 mg tablet 0.5 mg PO QPM RF: 0 warfarin 5 mg Tablet 2.5 mg PO WK RF: 0 warfarin 5 mg Tablet 5 mg PO 6XWK RF: 0 amitriptyline 25 mg tablet 25 mg PO QAM RF: 0 colestipol 1 gram tablet 2 gm PO BID RF: 0 levothyroxine 112 mcg capsule 112 mcg PO QAM RF: 0 cholecalciferol (vitamin D3) 50,000 unit capsule 50,000 units PO WK RF: 0 Changed furosemide 20 mg tablet 20 mg PO DAILY Qty: 0 RF: 0 Discontinued carvedilol 6.25 mg tablet 6.25 mg PO QAM RF: 0 Discharge Orders: Discharge Order (Routine); Ordered 01/24/22 Ordered By: Chandrakant Bowling Admission Data Admit Date/Time: 01/18/22 17:54 Attending Provider: Chandrakant Bowling Admit Provider: Mitch Piña Primary Care Provider: Tristan Conde Other Providers: Nikolas Vega ; Michael Javier
== END 2022-01-24 16:23 | disposition home or self-care (01) | DRG 286 ==
LOC: ED 14:57 → SUATTDRO 17:54 → 2W 17:54 → 2S 01-20 13:15 → 2N 01-21 15:48

== ENCOUNTER 2022-07-16 11:06 | Inpatient (IN) ==
[2022-07-16] MEDS ORDERED: SODIUM CHLORIDE 0.9% 1000ML 500 ML IV ONE (11:37)
[2022-07-16] MEDS ORDERED: SODIUM CHLORIDE 0.9% 1000ML 250 ML IV ONE (11:47)
--- NOTE | 2022-07-16 11:57 | Emergency Department Note ---
Impression & Plan Acute kidney injury superimposed on CKD, Contusion, Hyperkalemia, Heart failure ED Provider Note Provider: Alton Rodríguez MD DATE OF SERVICE: 07/16/2022 CHIEF COMPLAINT: Worsened labs referred by nephrology HISTORY OF PRESENT ILLNESS: Patient is a 77-year-old female past medical history including hypertension, CKD, PE on Coumadin, heart failure presenting today referred by her art consultant. Had blood work done yesterday which showed evidence of hyperkalemia with a K of 6.0 as well as worsened renal function from a month ago. Patient states he did this relates maybe a little bit weaker but does not have any difficulty breathing or palpitations. Patient states she has been eating and drinking okay. Patient states he was at the [employer] and did bump her left side getting into her camper 1 time and has some bruising on her left upper arm and left leg. Denies striking her head or having any headache. REVIEW OF SYSTEMS: A total of 10 review of systems was obtained and negative except as stated above in the HPI. PAST MEDICAL HISTORY: As noted above MEDICATIONS: Reviewed home medications includes Coumadin SOCIAL HISTORY: Lives at home by herself and ambulates with walker PHYSICAL EXAM: GENERAL: alert and oriented in no acute distress on stretcher Head: normocephalic and atraumatic EYES: No injection, discharge or icterus. NECK: Trachea midline. ENT: Mucous membranes pink and moist. LUNGS: Airway patent. No retractions. Breath sounds clear HEART: Regular rate and rhythm. No chest wall tenderness ABDOMEN: Soft and non-tender, without guarding or rebound. SKIN: Acyanotic, warm, dry EXTREMITIES: 23+ edema of the lower extremities to the knees. Some contusion overlying the left kaufman to the left lateral thigh. No significant hard or firm compartments appreciated. No weeping or large open wounds appreciated. Patient has some slight contusion approximately 2 to 3 cm in size of the left upper mid arm again without significant open wound/laceration or firmness. NEUROLOGICAL: No focal deficits. No aphasia. No facial droop or slurred speech. Normal strength and tone in the extremities. Sensation to gross touch normal. EK bpm sinus rhythm with first-degree AV block. Right bundle branch block noted. No acute ST segment elevation with inferior and anterior T wave inversions. QTc 445. CONTINUOUS CARDIAC MONITORING: was ordered and showed a heart rate of 60s-70s bpm in normal sinus rhythm Patient's laboratory studies and imaging reviewed. Differential includes Infection, dehydration, metabolic abnormality, hypo/hyperglycemia, electrolyte disturbance, anemia, hypoxia, cardiac sources, intracerebral event, toxicologic, neurologic, as well as other pathologies. IMPRESSION/MEDICAL DECISION MAKING: Patient denies significant infectious symptoms. Worsened renal function with some hyperkalemia on outpatient labs yesterday. We will double check this today as well as obtain a renal ultrasound. Not having flank pain or back pain conc erning for stone. Given small amount of IV fluid here initially. Follows closely with nephrology. Has some bruising on the left upper arm and left leg but no evidence of compartment syndrome, open wound, infection, and did not strike or sustain significant injury to the head or thorax otherwise and do not feel he needs additional imaging at this time. Therapeutic INR 2.3. No leukocytosis. Stable anemia with hemoglobin of 8.0. Some slight hyperkalemia 5.8 however BUN still elevated 94 today with creatinine now at 2.6. Carbon dioxide 16. Urinalysis appears contaminated but does have some evidence of blood in leuk esterase as well as white blood cells. Ultrasound report by radiology without evidence of hydronephrosis. Discussed with nephrology at this point. Given her tenuous heart failure status and worsening renal function feel that further care here and observation is indica sari. Hospitalist to be contacted. Patient given Veltessa under direction of nephrology. DIAGNOSIS: JULISSA on CKD, hyperkalemia, history of CHF, leg swelling, left arm and leg contusions DISPOSITION: Hospitalist will evaluate Patient was agreeable with this plan. Past Med/Surg History Medical History (Updated 07/16/22 @ 14:46 by CALLIE Li) Anemia resolved per pt, blood transfusions "many yrs ago" unknown cause per pt; mild asymptomatic per nephrology 08/2021 note Chronic anticoagulation PE and long time warfarin CKD (chronic kidney disease), stage III Depression controlled, stable per pt JOSE (generalized anxiety disorder) controlled, stable per pt HTN (hypertension) controlled, stable per pt Hyperkalemia Hypothyroidism IBS (irritable bowel syndrome) Obesity NIKKI (obstructive sleep apnea) Intolerant to CPAP-no current treatment NIKKI (obstructive sleep apnea) Peripheral neuropathy feet, uses rolling walker consistently Pulmonary embolism on warfarin, follows with anticoagulation clinic Vitamin D deficiency Surgical History History of bilateral knee replacement History of cataract extraction right and left History of hysterectomy History of open reduction and internal fixation (ORIF) procedure right foot History of spinal fusion Hx of total shoulder replacement right and left Left reverse TSA 02/01/2018: LMA#4 + PNB. No issues per anesthesia progress note. S/P cardiac cath "2002 - normal coronaries" S/P cholecystectomy S/P left knee arthroscopy Family History Father Pulmonary embolism, Onset Age: 69 Stroke Mother , 93 Arthritis Hypertension Sister Breast cancer Social History Smoking Status: Never smoker Second Hand Exposure: No; Hx Alcohol Use: No Hx Substance Use: No Preferred Language: Bahraini Communication Ability: Effective Visual Impairment: Limited Hearing Ability: Hard of Hearing Children'S Book Author Required: No Beliefs That Will Affect Care: None marital status: / Current Living Situation: Alone current occupational status: retired How many Children do You have: 2 How many Children do You have Comment: neither son is local, pt stated she has two sister in laws that assist with care as needed. She also has a niece that assists her frequently. Feels Safe at Home: Yes during the past year weight has: remained stable Assistive Devices: Oxygen - at Night and Walker Allergies Allergies Allergy/AdvReac Type Severity Reaction Status Date / Time No Known Allergies Allergy Verified 06/28/22 14:00 Home Meds Home Medications Medication Instructions Recorded Confirmed pramipexole 0.25 mg tablet 0.5 mg PO QPM 03/17/21 06/28/22 warfarin 5 mg tablet 2.5 mg PO WK 03/18/21 06/28/22 warfarin 5 mg tablet 5 mg PO [id number] 03/18/21 06/28/22 amitriptyline 25 mg tablet 25 mg PO QAM 06/13/21 06/28/22 colestipol 1 gram tablet 2 gm PO BID 06/13/21 06/28/22 levothyroxine 112 mcg capsule 112 mcg PO QAM 06/13/21 06/28/22 gabapentin 100 mg capsule 300 mg PO TID 07/29/21 06/28/22 lisinopril 40 mg tablet 40 mg PO QAM 10/12/21 06/28/22 cholecalciferol (vitamin D3) 1,250 50,000 units PO WK 01/18/22 06/28/22 mcg (50,000 unit) capsule Previous Rx's Medication Instructions Recorded docusate sodium 100 mg capsule 100 mg PO BID #60 caps 07/03/19 lorazepam 0.5 mg tablet 0.5 mg PO TID PRN anxiety #90 tabs 07/03/19 oxycodone 5 mg tablet 5 mg PO Q4H PRN pain #60 tabs 07/03/19 pantoprazole 40 mg tablet,delayed 40 mg PO BID #180 tabs 07/03/19 release furosemide 20 mg tablet 20 mg PO DAILY #0 tabs 01/24/22 furosemide 40 mg tablet (Lasix) 40 mg PO DAILY #30 tabs 01/24/22 carvedilol 12.5 mg tablet 12.5 mg PO BID #180 tabs 02/17/22 spironolactone 25 mg tablet 25 mg PO DAILY #30 tabs 04/28/22 ferrous sulfate 325 mg (65 mg 325 mg PO QAM #90 tabs 06/21/22 iron) tablet,delayed release iron sucrose 200 mg iron/10 mL 200 mg (10 mL) IV Q2D 5 doses #50 06/21/22 intravenous solution (Venofer) mL Results & Data (ED) Vital Signs Vital Signs - 24 hr 07/16/22 11:15 07/16/22 11:38 07/16/22 12:00 Temperature 36.8 C Temperature Source Temporal Artery Scan Pulse Rate 112 H 70 67 Pulse Rate [Apical] Respiratory Rate 18 19 14 Blood Pressure 102/47 L Blood Pressure [Right Arm] Blood Pressure Mean 65 Blood Pressure Mean [Right Arm] Pulse Oximetry 95 Oxygen Delivery Method Room Air Sepsis Recent Fever Within 48 Hours No Sepsis New/Unexplained Change in Mental Status No Sepsis Action Taken by Nursing No Action Required 07/16/22 12:01 07/16/22 12:01 07/16/22 12:30 Temperature Temperature Source Pulse Rate 66 66 Pulse Rate [Apical] Respiratory Rate 18 14 Blood Pressure 100/48 L Blood Pressure [Right Arm] Blood Pressure Mean 65 Blood Pressure Mean [Right Arm] Pulse Oximetry 94 Oxygen Delivery Method Sepsis Recent Fever Within 48 Hours Sepsis New/Unexplained Change in Mental Status Sepsis Action Taken by Nursing 07/16/22 13:00 07/16/22 13:01 07/16/22 13:01 Temperature Temperature Source Pulse Rate 67 68 Pulse Rate [Apical] Respiratory Rate 19 20 Blood Pressure 103/49 L Blood Pressure [Right Arm] Blood Pressure Mean 67 Blood Pressure Mean [Right Arm] Pulse Oximetry Oxygen Delivery Method Sepsis Recent Fever Within 48 Hours Sepsis New/Unexplained Change in Mental Status Sepsis Action Taken by Nursing 07/16/22 14:19 Temperature Temperature Source Pulse Rate Pulse Rate [Apical] 70 Respiratory Rate 18 Blood Pressure Blood Pressure [Right Arm] 104/67 Blood Pressure Mean Blood Pressure Mean [Right Arm] 79 Pulse Oximetry 95 Oxygen Delivery Method Room Air Sepsis Recent Fever Within 48 Hours Sepsis New/Unexplained Change in Mental Status Sepsis Action Taken by Nursing Laboratory Data Result diagrams: 07/16/22 11:30 07/16/22 11:30 Lab Results 07/16/22 07/16/22 07/16/22 Range/Units 11:30 11:30 11:30 WBC 7.83 (4.8-10.8) K/ul RBC 2.95 L (3.93-5.22) M/uL Hgb 8.0 L (12.0-16.0) g/dl Hct 27.0 L (34.1-44.9) % MCV 91.5 (80.0-100.0) fL MCH 27.1 (25.0-34.0) pg MCHC 29.6 L (32.0-36.0) g/dL RDW Std Deviation 71.0 H (36.4-46.3) fL RDW Coeff of Bertha 21.2 H (11.5-14.5) % Plt Count 140 (130-400) K/uL MPV 11.3 (9.4-12.3) fL Immature Gran % (Auto) 0.4 % Neut % (Auto) 83.0 % Lymph % (Auto) 8.8 % Daggett % (Auto) 6.9 % Eos % (Auto) 0.8 % Baso % (Auto) 0.1 % Neut # (Auto) 6.50 (1.4-6.5) K/uL Lymph # (Auto) 0.69 L (1.2-3.4) K/uL Daggett # (Auto) 0.54 (0.24-0.82) K/uL Eos # (Auto) 0.06 (0-0.50) K/uL Baso # (Auto) 0.01 (0-0.2) K/uL Immature Gran # (Auto) 0.03 H (0.00-0.02) K/uL Anisocytosis Present Echinocytes 1+ PT 23.0 H (9.0-12.0) Seconds INR 2.3 H (0.9-1.1) APTT 38.7 H (21.0-31.0) Seconds PTT Ratio 1.4 Sodium 136 (136-145) mmol/L Potassium 5.8 H (3.5-5.1) mmol/L Chloride 112 H (98-107) mmol/L Carbon Dioxide 16 L (21-32) mmol/L Anion Gap 8 (3-11) BUN 94 H (6-23) mg/dl Creatinine 2.62 H (0.6-1.2) mg/dl Est Cr Clr Drug Dosing 22.1 ml/min Est GFR ( Amer) 19.4 ml/min Est GFR (Non-Af Amer) 16.7 ml/min BUN/Creatinine Ratio 35.9 H (10-20) Glucose 104 H (70-99(Fasting)) mg/dl Calcium 8.9 (8.5-10.1) mg/dl Magnesium 2.0 (1.7-2.4) mg/dl Total Bilirubin 0.4 (0.2-1.0) mg/dl AST 14 (13-39) U/L ALT 9 (7-52) U/L Alkaline Phosphatase 136 H (34-104) U/L Troponin I High Sens (0-14) pg/ml Total Protein 6.3 (6.0-8.3) gm/dl Albumin 3.7 (3.4-5.0) gm/dl Globulin 2.6 (2.5-4.0) gm/dl Albumin/Globulin Ratio 1.4 (0.9-2) Urine Color Urine Appearance (Clear) Urine pH (4.5-7.5) Ur Specific [place] (1.000-1.030) Urine Protein (Negative) Urine Glucose (UA) (Negative) Urine Ketones (Negative) Urine Blood (Negative) Urine Nitrite (Negative) Urine Bilirubin (Negative) Urine Urobilinogen (Negative) Ur Leukocyte Esterase (Negative) Urine WBC (Auto) (0-5) /hpf Urine RBC (Auto) (0-4) /hpf U Hyaline Cast (Auto) (0-5) /lpf U Epithel Cells (Auto) (0-5) /lpf Urine Bacteria (Auto) (Negative) 07/16/22 07/16/22 Range/Units 11:30 12:00 WBC (4.8-10.8) K/ul RBC (3.93-5.22) M/uL Hgb (12.0-16.0) g/dl Hct (34.1-44.9) % MCV (80.0-100.0) fL MCH (25.0-34.0) pg MCHC (32.0-36.0) g/dL RDW Std Deviation (36.4-46.3) fL RDW Coeff of Bertha (11.5-14.5) % Plt Count (130-400) K/uL MPV (9.4-12.3) fL Immature Gran % (Auto) % Neut % (Auto) % Lymph % (Auto) % Daggett % (Auto) % Eos % (Auto) % Baso % (Auto) % Neut # (Auto) (1.4-6.5) K/uL Lymph # (Auto) (1.2-3.4) K/uL Daggett # (Auto) (0.24-0.82) K/uL Eos # (Auto) (0-0.50) K/uL Baso # (Auto) (0-0.2) K/uL Immature Gran # (Auto) (0.00-0.02) K/uL Anisocytosis Echinocytes PT (9.0-12.0) Seconds INR (0.9-1.1) APTT (21.0-31.0) Seconds PTT Ratio Sodium (136-145) mmol/L Potassium (3.5-5.1) mmol/L Chloride (98-107) mmol/L Carbon Dioxide (21-32) mmol/L Anion Gap (3-11) BUN (6-23) mg/dl Creatinine (0.6-1.2) mg/dl Est Cr Clr Drug Dosing ml/min Est GFR ( Amer) ml/min Est GFR (Non-Af Amer) ml/min BUN/Creatinine Ratio (10-20) Glucose (70-99(Fasting)) mg/dl Calcium (8.5-10.1) mg/dl Magnesium (1.7-2.4) mg/dl Total Bilirubin (0.2-1.0) mg/dl AST (13-39) U/L ALT (7-52) U/L Alkaline Phosphatase (34-104) U/L Troponin I High Sens 11.4 (0-14) pg/ml Total Protein (6.0-8.3) gm/dl Albumin (3.4-5.0) gm/dl Globulin (2.5-4.0) gm/dl Albumin/Globulin Ratio (0.9-2) Urine Color Yellow Urine Appearance Cloudy A (Clear) Urine pH 5.0 (4.5-7.5) Ur Specific [place] 1.010 (1.000-1.030) Urine Protein 1+ H (Negative) Urine Glucose (UA) Negative (Negative) Urine Ketones Negative (Negative) Urine Blood 2+ H (Negative) Urine Nitrite Negative (Negative) Urine Bilirubin Negative (Negative) Urine Urobilinogen Negative (Negative) Ur Leukocyte Esterase 3+ H (Negative) Urine WBC (Auto) >30 H (0-5) /hpf Urine RBC (Auto) 10-30 H (0-4) /hpf U Hyaline Cast (Auto) 0 (0-5) /lpf U Epithel Cells (Auto) >30 H (0-5) /lpf Urine Bacteria (Auto) 1+ H (Negative) Administered Medications Discontinued Medications Sodium Chloride (Nss 1000ml) 500 mls @ 999 mls/hr IV .Q31M ONE Stop: 07/16/22 12:07 Last Admin: 07/16/22 12:35 Dose: Not Given Documented By: ANUM Sodium Chloride (Nss 1000ml) 250 mls @ 999 mls/hr IV .Q16M ONE Stop: 07/16/22 12:02 Last Infusion: 07/16/22 12:35 Dose: 0 mls/hr Documented By: Admin: 07/16/22 12:06 Dose: 999 mls/hr Documented By: CELIA Imaging Data Radiologist's Impression: Renal Ultrasound 07/16/22 11:37 ULTRASOUND KIDNEYS AND BLADDER CLINICAL HISTORY: Elevated creatinine. COMPARISON STUDY: Abdominal CT dated 06/13/2021 TECHNIQUE: Real-time, grayscale, and color flow sonography of the kidneys and bladder is performed. Images are reviewed in the transverse and longitudinal planes. FINDINGS: Kidneys: The kidneys demonstrated cortical atrophy. Echotexture is normal. The right kidney measures 9.7 cm in length and the left kidney measures 9.4 cm in length. There is no hydronephrosis. No shadowing renal calculi are identified. A subcentimeter cyst is noted in the right lower pole. There is no sonographic evidence of contour deforming renal mass lesion. No perinephric fluid is identified. Bladder: The bladder is normal in appearance. Ureteral jets were not seen. IMPRESSION: 1. The kidneys are atrophic and without hydronephrosis. 2. The bladder is normal as visualized. ACT 112: Negative or not required by law. Electronically signed by: Mir Lorenzo M.D. 07/16/2022 1:44 PM Discharge Plan Visit Data Chief Complaint: Referred by Doctor Stated Complaint: TEST REQUESTED BY DOC ED Provider: Alton Rodríguez Discharge Problem: Acute kidney injury superimposed on CKD, Contusion, Hyperkalemia, Heart failure Patient Disposition: Being Evaluated by Hospitalist Forms Stand Alone Forms: My [facility] [place] Prescriptions Prescriptions: No Action gabapentin 100 mg capsule 300 mg PO TID spironolactone 25 mg tablet 25 mg PO DAILY Qty: 30 2RF carvedilol 12.5 mg tablet 12.5 mg PO BID Qty: 180 3RF Venofer 200 mg iron/10 mL solution 200 mg IV Q2D Qty: 50 0RF Rx Instructions: administer over 30 mins ferrous sulfate 325 mg (65 mg iron) tablet,delayed release (DR/EC) 325 mg PO QAM Qty: 90 3RF docusate sodium 100 mg capsule 100 mg PO BID Qty: 60 0RF lorazepam 0.5 mg tablet 0.5 mg PO TID PRN (Reason: anxiety) Qty: 90 0RF oxycodone 5 mg tablet 5 mg PO Q4H PRN (Reason: pain) Qty: 60 0RF pantoprazole 40 mg tablet,delayed release (DR/EC) 40 mg PO BID Qty: 180 3RF lisinopril 40 mg tablet 40 mg PO QAM pramipexole 0.25 mg tablet 0.5 mg PO QPM Rx Instructions: administer 2 - 3 hours before bedtime warfarin 5 mg Tablet 2.5 mg PO WK Rx Instructions: TAKES ON FRIDAYS. warfarin 5 mg Tablet 5 mg PO [id number] Rx Instructions: TAKES EVERY DAY EXCEPT FRIDAYS. amitriptyline 25 mg tablet 25 mg PO QAM colestipol 1 gram tablet 2 gm PO BID levothyroxine 112 mcg capsule 112 mcg PO QAM cholecalciferol (vitamin D3) 50,000 unit capsule 50,000 units PO WK Rx Instructions: on Sundays furosemide [Lasix] 40 mg tablet 40 mg PO DAILY Qty: 30 1RF furosemide 20 mg tablet 20 mg PO DAILY Qty: 0 0RF Referrals Referrals: Tristan Conde MD [Primary Care Provider] - : Contusion Qualifiers: Encounter type: initial encounter Laterality: left Heart failure Qualifiers: Heart failure type: unspecified Heart failure chronicity: chronic Qualified Code(s): I50.9 - Heart failure, unspecified
[2022-07-16 12:07] LABS: INR 2.3 (0.9-1.1); Partial Thromboplastin Ratio 1.4; Partial Thromboplastin Time 38.7 Seconds (21.0-31.0)
[2022-07-16 12:23] LABS: Appearance Urine Cloudy (Clear); Bacteria Urine Automated 1+ (Negative); Bilirubin Urine Negative (Negative); Blood Urine 2+ (Negative); Cast Urine Automated 0 /lpf (0-5); Color Urine Yellow; Epithelial Cell Urine Auto >30 /lpf (0-5); Glucose Urine UA Negative (Negative); Ketones Urine Negative (Negative); Leukocyte Esterase Urine 3+ (Negative); Nitrite Urine Negative (Negative); Protein Urine 1+ (Negative); Urobilinogen Urine Negative (Negative); WBC Urine Automated >30 /hpf (0-5)
[2022-07-16 12:29] LABS: Albumin Globulin Ratio 1.4 (0.9-2); Albumin Level 3.7 gm/dl (3.4-5.0); BUN Creatinine Ratio 35.9 (10-20); Bilirubin,Total 0.4 mg/dl (0.2-1.0); Calcium 8.9 mg/dl (8.5-10.1); Creatinine Clr Calc Pharmacy 22.1 ml/min; Est GFR (African American) 19.4 ml/min; Est GFR (Non-African American) 16.7 ml/min; Globulin 2.6 gm/dl (2.5-4.0); Potassium 5.8 mmol/L (3.5-5.1); Total Protein 6.3 gm/dl (6.0-8.3)
[2022-07-16 12:31] LABS: Mean Corpuscular Hemoglobin 27.1 pg (25.0-34.0); Mean Corpuscular Hgb Conc 29.6 g/dL (32.0-36.0); Mean Corpuscular Volume 91.5 fL (80.0-100.0); Mean Platelet Volume 11.3 fL (9.4-12.3); Platelet Count 140 K/uL (130-400); RDW Coefficient of Variation 21.2 % (11.5-14.5); Red Blood Count 2.95 M/uL (3.93-5.22); White Blood Count 7.83 K/ul (4.8-10.8)
[2022-07-16 12:37] LABS: Anisocytosis Present; Basophils # (auto) 0.01 K/uL (0-0.2); Basophils % (auto) 0.1 %; Echinocytes 1+; Eosinophils # (auto) 0.06 K/uL (0-0.50); Eosinophils % (auto) 0.8 %; Immature Granulocytes # (auto) 0.03 K/uL (0.00-0.02); Immature Granulocytes % (auto) 0.4 %; Lymphocytes # (auto) 0.69 K/uL (1.2-3.4); Lymphocytes % (auto) 8.8 %; Monocytes # (auto) 0.54 K/uL (0.24-0.82); Monocytes % (auto) 6.9 %
--- NOTE | 2022-07-16 13:46 | Ultrasound Report ---
ULTRASOUND KIDNEYS AND BLADDER CLINICAL HISTORY: Elevated creatinine. COMPARISON STUDY: Abdominal CT dated 06/13/2021 TECHNIQUE: Real-time, grayscale, and color flow sonography of the kidneys and bladder is performed. I mages are reviewed in the transverse and longitudinal planes. FINDINGS: Kidneys: The kidneys demonstrated cortical atrophy. Echotexture is normal. The right kidney measures 9.7 cm in length and the left kidney measures 9.4 cm in length. There is no hydronephrosis. No shado wing renal calculi are identified. A subcentimeter cyst is noted in the right lower pole. There is no sonographic evidence of contour deforming renal mass lesion. No perinephric fluid is identified. Bladder: The bladder is normal in appearance. Ureteral jets were not seen. IMPRESSION: 1. The kidneys are atrophic and without hydronephrosis. 2. The bladder is normal as visualized. ACT 112: Negative or not required by law. Electronically signed by: Mir Lorenzo M.D. 07/16/2022 1:44 PM
[2022-07-16] MEDS ORDERED: PATIROMER CALCIUM SORBITEX 8.4 GM PACK PO ONE (14:23)
--- NOTE | 2022-07-16 14:49 | History & Physical Report ---
Date of Service July 16, 2022 Assessment & Plan (1) Acute kidney injury superimposed on CKD: (2) Hyperkalemia: (3) Cardiorenal syndrome with renal failure: (4) NIKKI (obstructive sleep apnea): (5) Acute heart failure with preserved ejection fraction (HFpEF): (6) Pulmonary embolism: (7) Hypothyroidism: (8) Venous insufficiency: (9) Anemia of chronic disease: Plan Ms. Garcia is a 77 year old that presented to the [facility] by the recommendation of her pointer helper based on her lab work obtained 07/15. K+ 6.0, creatinine 2.6 Acute Kidney Injury superimprosed on CKD Cardiorenal Syndrome Hyperkalemia: K+ yesterday 6.0, now 5.8. Ca+ and Mg+ WNL; recheck in AM Baseline Creatinine 1.28 (05/2022) Today creatinine 2.6 Renal US in ED no obstruction or hydronephrosis. 0.9 NS @ 60ml/hour; consider HCO3. Hold all nephrotoxic meds and K+ sparing meds Nephro consult placed; Dr. Hernández with [facility] aware. NIKKI: Not compliant with therapy. Last sleep study was over 10 years ago. Has seen pulmonary in the past, but non compliant HFpEF: Currently NYHA Class II-III. Follows with Barbara Toledo PA-C in CHF clinic with [facility]; notified of pt admission to follow while IPT Cardiac catheterization done January 2022 with clean coronaries. Evidence of pHTN and elevated right/left heart pressures; may be secondary to H/O PE Heart Healthy diet. Consider cardiology consult once Nephro sees patient. HTN: Stable; Continue Coreg, Lisinopril Anemia of Chronic Disease: Fe+ deficiency Anemia: Hgb 8.0; baseline: Was receiving IV Venofer infusions. Denies She denies overt blood loss and remains asymptomatic Fe+ level 63 and TIBC 434. Continue Ferrous Sulfate Dysuria: WBC: 7.83 In setting of dysuria; treat proactively with Rocephin IV x 3 days. Venous insufficiency: Chronic. Follows with Dr. Cobb/Shi. Continue compression/elevation. Arthritis: Takes Oxycodone 5 mg PO Q 4 PRN; has taken this for years and is managed by PCP. States she takes one or two per day. NIKKI: Not compliant with therapy. Last sleep study was over 10 years ago. Has seen pulmonary in the past H/O PE: On Coumadin; INR 2.3 within goal; will trend Hypothyroidism: Continue Synthroid Disposition: PCP: Dr. Conde Code Status: Full Code ; however, patient does not want to be kept alive if no means of meaningful recovery VTE Prophylaxis: TEDS Point of Contact: Son/POA: Jose Armando [phone] PLan to return home on DC History of Present Illness Chief Complaint: Nephrology referral; abnormal labs Primary Care Provider: Tristan Conde MD Ms. Asuncion Garcia is a 77 year old female who presented to the [facility] as per recommendation by her Flower Cheniller based on routine laboratory work performed yesterday 07/15 with a K+ level of 6.0. In the ED today, her K+ level is 5.8 and creatinine is 2.6. Additional PMH includes: HTN, CKD 3, PE (on Coumadin - recent INR 2.3), CHF. She reported some bruising on her arm after gently bumping it over the weekend. Additional PMH includes: HTN, diastolic CHF with last echo on 01/13/22 showing new lateral inferolateral wall motion abnormality, Mitral regurg, history of DVT on Coumadin, CKD stage III, anemia, generalized anxiety disorder, venous stasis ulcers and restless legs. Patient denies HUNTER, dizziness, SOB, orthopnea, N/V/D, appetite changes, skin changes. Patient was sitting on the side of her bed int he ED in no apparent distress during my examination. Discussed case with Nephro and plan for admission for further evaluation and management. Please see A/P for further details. Allergies Allergy/AdvReac Type Severity Reaction Status Date / Time No Known Allergies Allergy Verified 06/28/22 14:00 Home Medications Medication Instructions Recorded Confirmed Type docusate sodium 100 mg capsule 100 mg PO BID #60 caps 07/03/19 07/16/22 Rx lorazepam 0.5 mg tablet 0.5 mg PO TID PRN anxiety #90 tabs 07/03/19 07/16/22 Rx oxycodone 5 mg tablet 5 mg PO Q4H PRN pain #60 tabs 07/03/19 07/16/22 Rx pantoprazole 40 mg tablet,delayed 40 mg PO BID #180 tabs 07/03/19 07/16/22 Rx release pramipexole 0.25 mg tablet 0.5 mg PO QPM 03/17/21 07/16/22 History warfarin 5 mg tablet 2.5 mg PO WK 03/18/21 07/16/22 History warfarin 5 mg tablet 5 mg PO 6XWK 03/18/21 07/16/22 History amitriptyline 25 mg tablet 25 mg PO QAM 06/13/21 07/16/22 History colestipol 1 gram tablet 2 gm PO BID 06/13/21 07/16/22 History levothyroxine 112 mcg capsule 112 mcg PO QAM 06/13/21 07/16/22 History gabapentin 100 mg capsule 300 mg PO TID 07/29/21 07/16/22 History lisinopril 40 mg tablet 40 mg PO QAM 10/12/21 07/16/22 History cholecalciferol (vitamin D3) 1,250 50,000 units PO WK 01/18/22 07/16/22 History mcg (50,000 unit) capsule furosemide 20 mg tablet 20 mg PO DAILY #0 tabs 01/24/22 07/16/22 Rx furosemide 40 mg tablet (Lasix) 40 mg PO DAILY #30 tabs 01/24/22 07/16/22 Rx carvedilol 12.5 mg tablet 12.5 mg PO BID #180 tabs 02/17/22 07/16/22 Rx spironolactone 25 mg tablet 25 mg PO DAILY #30 tabs 04/28/22 07/16/22 Rx ferrous sulfate 325 mg (65 mg 325 mg PO QAM #90 tabs 06/21/22 07/16/22 Rx iron) tablet,delayed release iron sucrose 200 mg iron/10 mL 200 mg (10 mL) IV Q2D 5 doses #50 06/21/22 06/28/22 Rx intravenous solution (Venofer) mL Past Med/Surg History Medical History Anemia resolved per pt, blood transfusions "many yrs ago" unknown cause per pt; mild asymptomatic per nephrology 08/2021 note Anemia of chronic disease Cardiorenal syndrome with renal failure Chronic anticoagulation PE and long time warfarin CKD (chronic kidney disease), stage III Depression controlled, stable per pt JOSE (generalized anxiety disorder) controlled, stable per pt HTN (hypertension) controlled, stable per pt Hyperkalemia Hypothyroidism IBS (irritable bowel syndrome) Obesity NIKKI (obstructive sleep apnea) Intolerant to CPAP-no current treatment NIKKI (obstructive sleep apnea) Peripheral neuropathy feet, uses rolling walker consistently Pulmonary embolism on warfarin, follows with anticoagulation clinic Venous insufficiency Vitamin D deficiency Surgical History History of bilateral knee replacement History of cataract extraction right and left History of hysterectomy History of open reduction and internal fixation (ORIF) procedure right foot History of spinal fusion Hx of total shoulder replacement right and left Left reverse TSA 02/01/2018: LMA#4 + PNB. No issues per anesthesia progress note. S/P cardiac cath "2002 - normal coronaries" S/P cholecystectomy S/P left knee arthroscopy Family History Father Pulmonary embolism, Onset Age: 69 Stroke Mother , 93 Arthritis Hypertension Sister Breast cancer Social History Smoking Status: Never smoker Second Hand Exposure: No; Hx Alcohol Use: No Hx Substance Use: No Preferred Language: Serbian Communication Ability: Effective Visual Impairment: Limited Hearing Ability: Hard of Hearing Regulatory Compliance Specialist Required: No Beliefs That Will Affect Care: None marital status: / Current Living Situation: Alone current occupational status: retired How many Children do You have: 2 How many Children do You have Comment: neither son is local, pt stated she has two sister in laws that assist with care as needed. She also has a niece that assists her frequently. Feels Safe at Home: Yes during the past year weight has: remained stable Assistive Devices: Oxygen - at Night and Walker Review of Systems Review of Systems: Neuro: (-) Falls, trauma, slurred speech HEENT: (-) HUNTER, dizziness, dysphagia, visual or auditory changes CV: (-) CP, palpitations, (+) 4 B/L LE edema Resp: (+) SOB GI: (-) appetite changes, N/V/D, bowel changes : (+ dysuria Skin: (+) Lower extremity left foot 3rd toe with closed wound on tip of toe Psych: (-) anxiety, (+) depression Physical Exam Physical Exam: Neuro: AAOx4, PERRLA, no aphagia, memory changes, CNII-XII grossly intact HEENT: head normocephalic, moist mucus membranes CV: S1/S2, (-) M/G/R, (-) edema, cap refill < 3 seconds Resp: Lungs CTA in all faria. On RA GI: Abdomen S/NT/ND, Ax4 bowel sounds, (-) CVA tenderness Musculoskeletal: 5/5 B/L UE strength, 5/5 B/L LE strength. No gait disturbance Skin: (-) rashes , (-) erythema. Psych: euthymic mood Results & Data Results & Data ([facility]) Vital Signs (Past 12 Hours) Vital Signs Temp Pulse Pulse Resp BP BP Pulse Ox 07/16/22 14:19 70 18 104/67 95 07/16/22 13:01 103/49 L 07/16/22 13:01 68 20 07/16/22 13:00 67 19 07/16/22 12:30 66 14 94 07/16/22 12:01 66 18 07/16/22 12:01 100/48 L 07/16/22 12:00 67 14 07/16/22 11:38 70 19 07/16/22 11:15 36.8 C 112 H 18 102/47 L 95 O2 Del Method 07/16/22 14:19 Room Air 07/16/22 13:01 07/16/22 13:01 07/16/22 13:00 07/16/22 12:30 07/16/22 12:01 07/16/22 12:01 07/16/22 12:00 07/16/22 11:38 07/16/22 11:15 Room Air Laboratory Results Short CBC 07/16/22 Range/Units 11:30 WBC 7.83 (4.8-10.8) K/ul Hgb 8.0 L (12.0-16.0) g/dl Hct 27.0 L (34.1-44.9) % Plt Count 140 (130-400) K/uL BMP 07/16/22 11:30 Sodium 136 Potassium 5.8 H Chloride 112 H Carbon Dioxide 16 L BUN 94 H Creatinine 2.62 H Glucose 104 H Calcium 8.9 Liver Function 07/16/22 Range/Units 11:30 Total Bilirubin 0.4 (0.2-1.0) mg/dl AST 14 (13-39) U/L ALT 9 (7-52) U/L Alkaline Phosphatase 136 H (34-104) U/L Albumin 3.7 (3.4-5.0) gm/dl Urine 07/16/22 Range/Units 12:00 Urine Color Yellow Urine Appearance Cloudy A (Clear) Urine pH 5.0 (4.5-7.5) Ur Specific [place] 1.010 (1.000-1.030) Urine Protein 1+ H (Negative) Urine Glucose (UA) Negative (Negative) Diagnostic Findings Renal Ultrasound 07/16/22 11:37 ULTRASOUND KIDNEYS AND BLADDER CLINICAL HISTORY: Elevated creatinine. COMPARISON STUDY: Abdominal CT dated 06/13/2021 TECHNIQUE: Real-time, grayscale, and color flow sonography of the kidneys and bladder is performed. Images are reviewed in the transverse and longitudinal planes. FINDINGS: Kidneys: The kidneys demonstrated cortical atrophy. Echotexture is normal. The right kidney measures 9.7 cm in length and the left kidney measures 9.4 cm in length. There is no hydronephrosis. No shadowing renal calculi are identified. A subcentimeter cyst is noted in the right lower pole. There is no sonographic evidence of contour deforming renal mass lesion. No perinephric fluid is identified. Bladder: The bladder is normal in appearance. Ureteral jets were not seen. IMPRESSION: 1. The kidneys are atrophic and without hydronephrosis. 2. The bladder is normal as visualized. ACT 112: Negative or not required by law. Electronically signed by: Mir Lorenzo M.D. 07/16/2022 1:44 PM ECG Additional Comments: Vent. Rate : 067 BPM Atrial Rate : 067 BPM P-R Int : 224 ms QRS Dur : 144 ms QT Int : 422 ms QTc Int : 445 ms Sinus rhythm with 1st degree A-V block Right bundle branch block Code Status & VTE Plan Code Status Full Code in the event of cardiac or respiratory arrest VTE Prophylaxis Plan VTE Prophylaxis will be ordered: Yes Supervising Physician Co-Signing Physician Notes 77-year-old lady with PMH of CKD stage III, HTN, PE [on Coumadin], CHF presented to our ED upon referral of her outpatient pointer helper due to worsening potassium level/renal function. Patient denies any recent fever/chills/chest pain/sore throat/cough/belly pain/other review of symptoms. Patient reports normal appetite and adequate fluid intake. Patient does report some bilateral lower extremity weakness since last few days prior to arrival. Patient does report her chronic LE swelling, has not noticed any increase in swelling recently. Admitting labs reviewed, hemoglobin around baseline 8.0, creatinine elevated at 2.62, potassium at 5.8. EKG with no acute ST or T changes, sinus rhythm with first-degree heart block. Urinalysis suggestive of UTI, therapeutic INR, ultrasound renal WNL, troponin WNL. CXR with mild central pulmonary vascular congestion. Get BNP, hold nephrotoxic/Lasix/Aldactone, low potassium diet, nephrology consult, compression stockings, gentle IV fluid hydration at 60 mils an hour with NSS, BMP repeat at 6 PM. ?? cardio consult if w/ worsening volume status, pt closely managed with CHF clinic as OP. Upon examination: GENERAL: Alert and oriented x3. NAD, on RA. Class III obesity. HEENT: No pallor, no icterus. Pupils equal, round and reactive to light. Oral mucosa moist. NECK: No JVD, no neck masses. HEART: S1 and S2 heard. Regular rate and rhythm. No murmur, no gallop. RESPIRATORY SYSTEM: Normal AP diameter. No accessory muscle use. No wheezing, no crackles. ABDOMEN: Soft, bowel sounds present, nontender, no distention. CENTRAL NERVOUS SYSTEM: No facial droop. Speech is clear. Obeys simple commands. Moves extremities. EXTREMITIES: 2+ BLE edema, no erythema seen. I have seen and examined the patient and have discussed the case with the provider above. I agree with the assessment and plan as stated.
--- NOTE | 2022-07-16 15:08 | Electrocardiogram Report ---
Test Reason : Blood Pressure : / mmHG Vent. Rate : 067 BPM Atrial Rate : 067 BPM P-R Int : 224 ms QRS Dur : 144 ms QT Int : 422 ms P-R-T Axes : 035 012 -17 degrees QTc Int : 445 ms Sinus rhythm with 1st degree A-V block Right bundle branch block T wave abnormality, consider inferior ischemia Abnormal ECG When compared with ECG of 18-JAN-2022 23:23, Premature supraventricular complexes are no longer Present IN interval has increased Confirmed by Adonis Lema ([id number]) on 07/16/2022 3:08:29 PM Referred By: REFERRED SELF Confirmed By:Keegan Lema
--- NOTE | 2022-07-16 15:44 | XRay Report ---
XR chest 1V portable HISTORY: cardiorenal syndrome COMPARISON: Chest 01/22/2022. FINDINGS: No pneumothorax. No pleural effusions. The heart remains enlarged. There is mild central pu lmonary vascular congestion without overt edema. There are low lung volumes with chronic elevation th e right hemidiaphragm, unchanged. There are bilateral total shoulder arthroplasties. IMPRESSION: Cardiomegaly with mild central pulmonary vascular congestion without overt edema. ACT 112: Negative or not required by law. Electronically signed by: Elfego Kingston M.D. 07/16/2022 3:43 PM
[2022-07-16 18:18] LABS: BUN Creatinine Ratio 40.7 (10-20); Calcium 8.9 mg/dl (8.5-10.1); Creatinine Clr Calc Pharmacy 26.8 ml/min; Est GFR (African American) 24.5 ml/min; Est GFR (Non-African American) 21.1 ml/min; Potassium 5.5 mmol/L (3.5-5.1)
[2022-07-16] MEDS: cefTRIAXone SODIUM 2,000 MG in DEXTROSE 5% 50 ML IV SCH (18:37)
[2022-07-16] MEDS: SODIUM CHLORIDE 0.9% 500 ML IV SCH (18:37)
--- NOTE | 2022-07-16 19:45 | Nephrology Consultation ---
Date of Consultation July 16, 2022 Assessment & Plan (1) Acute kidney injury superimposed on CKD: Non-oliguric. US demonstrates atrophic kidneys without hydronephrosis. Urine +WBCs, RBCs, protein c/w suspected cystitis. Clinical presentation suggestive of prerenal physiology and possible ATN. Lisinopril, furosemide, and spironolactone held. Medications are currently appropriately dosed for kidney function. Ceftriaxone for UTI provided. Document strict I/O's. Repeat metabolic profile tomorrow AM. Potential future indications for dialysis reviewed with patient today. No emergent indication. Asuncion is receptive of HD, if needed. Renal diet. Favor electrolyte neutral IVF or HCO3 supplemented. (2) Anemia of chronic disease: History of iron deficiency. Anemia disproportionate to baseline kidney dysfunction. Repeat H/H in AM. (3) Hyperkalemia: No acute EKG changes at this time. Non oliguric. Patiromer provided. NaHCO3 supplement added. (4) Moderate pulmonary hypertension: Avoid significantly positive fluid balance. Diuretics held for now. History of Present Illness Reason for Consultation: JULISSA, hyperkalemia Requesting Physician: Africa Miller MD Attending Physician: Africa Miller MD History of Present Illness Ms. Asuncion Garcia is a 77 year-old female with chronic kidney disease. She was referred to the ER today by Dr. Milian for evaluation and management of hyperkalemia and acute kidney injury. Asuncion has CKD stage G3b A3. Her baseline creatinine has been 1.3 mg/dL. Urine sediment has been benign at baseline. UPCR 0.2 - 0.4. Renal US 03/02 revealed 8.9 cm kidneys without obstruction or mass. Renal impairment is due to microvascular disease. Medical history notable for hypertension, HFpEF, NIKKI, hypothyroidism, obesity, depression, recurrent UTI, bladder prolapse, JOSE, venous stasis, history of PE on treatment with Coumadin, and anemia with noted iron deficiency. Acute on chronic anemia with iron deficiency recently noted on outpatient labs. Asuncion is maintained on furosemide managed by her tailing hand for a history of HFpEF. Spironolactone had been more recently added. She is non-oliguric. At the time of my assessment in the ER this evening, she felt well and denied any acute complaints. No NSAID use. She is maintained on lisinopril and a daily potassium supplement. I discussed the plan of care with Dr. Rodríguez and Dr. Diaz earlier today. Allergies Allergy/AdvReac Type Severity Reaction Status Date / Time No Known Allergies Allergy Verified 06/28/22 14:00 Home Medications Medication Instructions Recorded Confirmed Type docusate sodium 100 mg capsule 100 mg PO BID #60 caps 07/03/19 07/16/22 Rx lorazepam 0.5 mg tablet 0.5 mg PO TID PRN anxiety #90 tabs 07/03/19 07/16/22 Rx oxycodone 5 mg tablet 5 mg PO Q4H PRN pain #60 tabs 07/03/19 07/16/22 Rx pantoprazole 40 mg tablet,delayed 40 mg PO BID #180 tabs 07/03/19 07/16/22 Rx release pramipexole 0.25 mg tablet 0.5 mg PO QPM 03/17/21 07/16/22 History warfarin 5 mg tablet 2.5 mg PO WK 03/18/21 07/16/22 History warfarin 5 mg tablet 5 mg PO [id number] 03/18/21 07/16/22 History amitriptyline 25 mg tablet 25 mg PO QAM 06/13/21 07/16/22 History colestipol 1 gram tablet 2 gm PO BID 06/13/21 07/16/22 History levothyroxine 112 mcg capsule 112 mcg PO QAM 06/13/21 07/16/22 History gabapentin 100 mg capsule 300 mg PO TID 07/29/21 07/16/22 History lisinopril 40 mg tablet 40 mg PO QAM 10/12/21 07/16/22 History cholecalciferol (vitamin D3) 1,250 50,000 units PO WK 01/18/22 07/16/22 History mcg (50,000 unit) capsule furosemide 20 mg tablet 20 mg PO DAILY #0 tabs 01/24/22 07/16/22 Rx furosemide 40 mg tablet (Lasix) 40 mg PO DAILY #30 tabs 01/24/22 07/16/22 Rx carvedilol 12.5 mg tablet 12.5 mg PO BID #180 tabs 02/17/22 07/16/22 Rx spironolactone 25 mg tablet 25 mg PO DAILY #30 tabs 04/28/22 07/16/22 Rx ferrous sulfate 325 mg (65 mg 325 mg PO QAM #90 tabs 06/21/22 07/16/22 Rx iron) tablet,delayed release iron sucrose 200 mg iron/10 mL 200 mg (10 mL) IV Q2D 5 doses #50 06/21/2206/14 Rx intravenous solution (Venofer) mL Patient History Medical History Anemia resolved per pt, blood transfusions "many yrs ago" unknown cause per pt; mild asymptomatic per nephrology 08/2021 note Anemia of chronic disease Cardiorenal syndrome with renal failure Chronic anticoagulation PE and long time warfarin CKD (chronic kidney disease), stage III Depression controlled, stable per pt JOSE (generalized anxiety disorder) controlled, stable per pt HTN (hypertension) controlled, stable per pt Hyperkalemia Hypothyroidism IBS (irritable bowel syndrome) Obesity NIKKI (obstructive sleep apnea) Intolerant to CPAP-no current treatment NIKKI (obstructive sleep apnea) Peripheral neuropathy feet, uses rolling walker consistently Pulmonary embolism on warfarin, follows with anticoagulation clinic Venous insufficiency Vitamin D deficiency Surgical History History of bilateral knee replacement History of cataract extraction right and left History of hysterectomy History of open reduction and internal fixation (ORIF) procedure right foot History of spinal fusion Hx of total shoulder replacement right and left Left reverse TSA 02/01/2018: LMA#4 + PNB. No issues per anesthesia progress note. 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 She also has a niece that assists her frequently. Feels Safe at Home: Yes during the past year weight has: remained stable Assistive Devices: Oxygen - at Night and Walker Review of Systems Review of Systems: All systems reviewed & are unremarkable except as noted in HPI & below Physical Exam Constitutional: well developed; no acute distress Eyes: no scleral abnormality and no corneal abnormality ENMT: Mouth: no oral mucosal abnormality and oral mucous membranes not dry Neck: normal visual inspection and trachea midline Respiratory: normal respiratory effort Auscultation: lungs clear to aus cultation bilaterally and + rales Cardiovascular: Rate/Rhythm: regular rate Heart Sounds: normal S1 and normal S2 Extremities: no edema Musculoskeletal: Extremities: no cyanosis and no clubbing Skin: + turgor decreased; no lesions Neurologic: Motor/Sensory: no tremor and no asterixis Psychiatric: Orientation: alert and oriented x 3 Results & Data ([facility]) Vital Signs (Past 12 Hours) Vital Signs Temp Pulse Pulse Pulse Resp BP BP 07/16/22 18:46 36.4 C L 90 16 161/70 H 07/16/22 17:38 68 8 L 07/16/22 14:19 70 18 104/67 07/16/22 13:01 103/49 L 07/16/22 13:01 68 20 07/16/22 13:00 67 19 07/16/22 12:30 66 14 07/16/22 12:01 66 18 07/16/22 12:01 100/48 L 07/16/22 12:00 67 14 07/16/22 11:38 70 19 07/16/22 11:15 36.8 C 112 H 18 102/47 L Pulse Ox O2 Del Method 07/16/22 18:46 90 Room Air 07/16/22 17:38 92 Room Air 07/16/22 14:19 95 Room Air 07/16/22 13:01 07/16/22 13:01 07/16/22 13:00 07/16/22 12:30 94 07/16/22 12:01 07/16/22 12:01 07/16/22 12:00 07/16/22 11:38 07/16/22 11:15 95 Room Air Laboratory Results Laboratory Results - last 24 hr 07/16/22 07/16/22 07/16/22 11:30 11:30 11:30 WBC 7.83 RBC 2.95 L Hgb 8.0 L Hct 27.0 L MCV 91.5 MCH 27.1 MCHC 29.6 L RDW Std Deviation 71.0 H RDW Coeff of Bertha 21.2 H Plt Count 140 MPV 11.3 Immature Gran % (Auto) 0.4 Neut % (Auto) 83.0 Lymph % (Auto) 8.8 [place] % (Auto) 6.9 Eos % (Auto) 0.8 Baso % (Auto) 0.1 Neut # (Auto) 6.50 Lymph # (Auto) 0.69 L [place] # (Auto) 0.54 Eos # (Auto) 0.06 Baso # (Auto) 0.01 Immature Gran # (Auto) 0.03 H Anisocytosis Present Echinocytes 1+ PT 23.0 H INR 2.3 H APTT 38.7 H PTT Ratio 1.4 Sodium 136 Potassium 5.8 H Chloride 112 H Carbon Dioxide 16 L Anion Gap 8 BUN 94 H Creatinine 2.62 H Est Cr Clr Drug Dosing 22.1 Est GFR ( Amer) 19.4 Est GFR (Non-Af Amer) 16.7 BUN/Creatinine Ratio 35.9 H Glucose 104 H Calcium 8.9 Magnesium 2.0 Total Bilirubin 0.4 AST 14 ALT 9 Alkaline Phosphatase 136 H Troponin I High Sens B-Natriuretic Peptide Total Protein 6.3 Albumin 3.7 Globulin 2.6 Albumin/Globulin Ratio 1.4 Urine Color Urine Appearance Urine pH Ur Specific [place] Urine Protein Urine Glucose (UA) Urine Ketones Urine Blood Urine Nitrite Urine Bilirubin Urine Urobilinogen Ur Leukocyte Esterase Urine WBC (Auto) Urine RBC (Auto) U Hyaline Cast (Auto) U Epithel Cells (Auto) Urine Bacteria (Auto) SARS-CoV-2, RNA, NAAT 07/16/22 07/16/22 07/16/22 11:30 12:00 14:23 WBC RBC Hgb Hct MCV MCH MCHC RDW Std Deviation RDW Coeff of Bertha Plt Count MPV Immature Gran % (Auto) Neut % (Auto) Lymph % (Auto) [place] % (Auto) Eos % (Auto) Baso % (Auto) Neut # (Auto) Lymph # (Auto) [place] # (Auto) Eos # (Auto) Baso # (Auto) Immature Gran # (Auto) Anisocytosis Echinocytes PT INR APTT PTT Ratio Sodium Potassium Chloride Carbon Dioxide Anion Gap BUN Creatinine Est Cr Clr Drug Dosing Est GFR ( Amer) Est GFR (Non-Af Amer) BUN/Creatinine Ratio Glucose Calcium Magnesium Total Bilirubin AST ALT Alkaline Phosphatase Troponin I High Sens 11.4 B-Natriuretic Peptide Total Protein Albumin Globulin Albumin/Globulin Ratio Urine Color Yellow Urine Appearance Cloudy A Urine pH 5.0 Ur Specific [place] 1.010 Urine Protein 1+ H Urine Glucose (UA) Negative Urine Ketones Negative Urine Blood 2+ H Urine Nitrite Negative Urine Bilirubin Negative Urine Urobilinogen Negative Ur Leukocyte Esterase 3+ H Urine WBC (Auto) >30 H Urine RBC (Auto) 10-30 H U Hyaline Cast (Auto) 0 U Epithel Cells (Auto) >30 H Urine Bacteria (Auto) 1+ H SARS-CoV-2, RNA, NAAT NEGATIVE 07/16/22 07/16/22 17:46 17:46 WBC RBC Hgb Hct MCV MCH MCHC RDW Std Deviation RDW Coeff of Bertha Plt Count MPV Immature Gran % (Auto) Neut % (Auto) Lymph % (Auto) [place] % (Auto) Eos % (Auto) Baso % (Auto) Neut # (Auto) Lymph # (Auto) [place] # (Auto) Eos # (Auto) Baso # (Auto) Immature Gran # (Auto) Anisocytosis Echinocytes PT INR APTT PTT Ratio Sodium 136 Potassium 5.5 H Chloride 112 H Carbon Dioxide 17 L Anion Gap 7 BUN 88 H Creatinine 2.16 H D Est Cr Clr Drug Dosing 26.8 Est GFR ( Amer) 24.5 Est GFR (Non-Af Amer) 21.1 BUN/Creatinine Ratio 40.7 H Glucose 102 H Calcium 8.9 Magnesium Total Bilirubin AST ALT Alkaline Phosphatase Troponin I High Sens B-Natriuretic Peptide 108 H Total Protein Albumin Globulin Albumin/Globulin Ratio Urine Color Urine Appearance Urine pH Ur Specific [place] Urine Protein Urine Glucose (UA) Urine Ketones Urine Blood Urine Nitrite Urine Bilirubin Urine Urobilinogen Ur Leukocyte Esterase Urine WBC (Auto) Urine RBC (Auto) U Hyaline Cast (Auto) U Epithel Cells (Auto) Urine Bacteria (Auto) SARS-CoV-2, RNA, NAAT Diagnostic Findings ULTRASOUND KIDNEYS AND BLADDER CLINICAL HISTORY: Elevated creatinine. COMPARISON STUDY: Abdominal CT dated 06/13/2021 TECHNIQUE: Real-time, grayscale, and color flow sonography of the kidneys and bladder is performed. Images are reviewed in the transverse and longitudinal planes. FINDINGS: Kidneys: The kidneys demonstrated cortical atrophy. Echotexture is normal. The right kidney measures 9.7 cm in length and the left kidney measures 9.4 cm in length. There is no hydronephrosis. No shadowing renal calculi are identified. A subcentimeter cyst is noted in the right lower pole. There is no sonographic evidence of contour deforming renal mass lesion. No perinephric fluid is identified. Bladder: The bladder is normal in appearance. Ureteral jets were not seen. IMPRESSION: 1. The kidneys are atrophic and without hydronephrosis. 2. The bladder is normal as visualized. PG Care Time/CCT Total # of Minutes Spent Total Time Spent with Patient: Total time spent is greater than 50% in coordination of care (as documented) at patient's floor/unit and/or counseling patient: Coding Level of Care Code 73965 Inpt Consult Level 4 Diagnoses Acute kidney injury superimposed on CKD N17.9; N18.9 Anemia of chronic disease D63.8 Hyperkalemia E87.5 Moderate pulmonary hypertension I27.20
[2022-07-16] MEDS ORDERED: LORazepam 0.5 MG TAB PO PRN (19:57)
[2022-07-16] MEDS: WARFARIN SOD 5 MG TAB PO SCH (20:55)
[2022-07-16] MEDS: COLESTIPOL HCL 1 GM TAB PO SCH (21:30)
[2022-07-16] MEDS: DOCUSATE SODIUM 100 MG CAP PO SCH (21:32)
[2022-07-16] MEDS: PANTOprazole 40 MG TAB PO SCH (21:33)
[2022-07-16] MEDS: carvediloL 12.5 MG TAB PO SCH (21:34)
[2022-07-16] MEDS: SODIUM BICARBONATE 650 MG TAB PO SCH (21:35)
[2022-07-17 06:03] LABS: INR 2.5 (0.9-1.1); Prothrombin Time 25.2 Seconds (9.0-12.0)
[2022-07-17 06:12] LABS: BUN Creatinine Ratio 42.6 (10-20); Calcium 8.8 mg/dl (8.5-10.1); Creatinine Clr Calc Pharmacy 32.7 ml/min; Est GFR (African American) 31.3 ml/min; Magnesium 1.8 mg/dl (1.7-2.4); Potassium 5.4 mmol/L (3.5-5.1)
[2022-07-17 06:15] LABS: Hematocrit (blood only) 24.7 % (34.1-44.9); Hemoglobin 7.5 g/dl (12.0-16.0); Mean Corpuscular Hemoglobin 27.4 pg (25.0-34.0); Mean Corpuscular Hgb Conc 30.4 g/dL (32.0-36.0); Mean Corpuscular Volume 90.1 fL (80.0-100.0); Mean Platelet Volume 12.1 fL (9.4-12.3); Platelet Count 134 K/uL (130-400); RDW Standard Deviation 69.7 fL (36.4-46.3); Red Blood Count 2.74 M/uL (3.93-5.22); White Blood Count 5.07 K/ul (4.8-10.8)
[2022-07-17 06:16] LABS: Platelet Estimate Normal (Normal)
[2022-07-17] MEDS: carvediloL 12.5 MG TAB PO SCH ×2 (08:20→21:31)
[2022-07-17] MEDS: FERROUS SULFATE 325 MG TAB PO SCH (08:20)
[2022-07-17] MEDS: SODIUM BICARBONATE 650 MG TAB PO SCH ×3 (08:20→19:25)
[2022-07-17] MEDS: AMITRIPTYLINE HCL 25 MG TAB PO SCH (08:20)
[2022-07-17] MEDS: LEVOTHYROXINE SODIUM 112 MCG TABLET PO SCH (08:21)
[2022-07-17] MEDS: DOCUSATE SODIUM 100 MG CAP PO SCH ×2 (08:21→21:30)
[2022-07-17] MEDS: PANTOprazole 40 MG TAB PO SCH ×2 (08:21→21:30)
[2022-07-17] MEDS: oxyCODONE HCL IR 5 MG TAB (IMMEDIATE RELEASE) PO PRN ×2 (08:23→21:27)
[2022-07-17] MEDS: SODIUM CHLORIDE 0.9% 500 ML IV SCH (10:44)
[2022-07-17] MEDS: COLESTIPOL HCL 1 GM TAB PO SCH ×2 (10:44→21:28)
--- NOTE | 2022-07-17 11:16 | Nephrology Progress Note ---
Date of Service July 17, 2022 Assessment & Plan (1) Acute kidney injury superimposed on CKD: Plan: Improving. Non-oliguric. Clinical presentation suggestive of prerenal physiology and possible ATN. US demonstrates atrophic kidneys without hydronephrosis. Urine +WBCs, RBCs, protein c/w suspected cystitis. Lisinopril, furosemide, and spironolactone held. Stop IVF. Encourage even fluid balance. Medications are currently appropriately dosed for kidney function. Ceftriaxone for UTI provided. Document strict I/O's. Renal diet. Continue PO HCO3 supplement for now. (2) Anemia of chronic disease: Plan: History of iron deficiency. Anemia disproportionate to baseline kidney dysfunction. H/H stable. Update iron profile with next labs. No signs of GI blood loss. (3) Hyperkalemia: Plan: Improving. Low potassium diet. Hold lisinopril and spironolactone. (4) Moderate pulmonary hypertension: Plan: Avoid significantly positive fluid balance. Diuretics held for now. Admission and Anticipated Discharge Date Admission Date: July 16, 2022 Subjective No acute events overnight. Asuncion feels well this AM. She is breathing comfortably. Appetite is good. LE edema stable. Increased urine output. No BM since presenting to the hospital. Denies feeling constipated. She denies any recent melena or hematochezia. Review of Systems Review of Systems: All systems reviewed & are unremarkable except as noted in HPI & below Physical Exam Constitutional: well developed; no acute distress Eyes: no scleral abnormality and no corneal abnormality ENMT: Mouth: no oral mucosal abnormality and oral mucous membranes not dry Neck: normal visual inspection and trachea midline Respiratory: normal respiratory effort Auscultation: lungs clear to auscultation bilaterally and + rales Cardiovascular: Rate/Rhythm: regular rate Heart Sounds: normal S1 and normal S2 Extremities: + edema Musculoskeletal: Extremities: no cyanosis and no clubbing Skin: + turgor decreased; no lesions Neurologic: Motor/Sensory: no tremor and no asterixis Psychiatric: Orientation: alert and oriented x 3 Results & Data ([facility]) Vital Signs (Past 12 Hours) Vital Signs Temp Pulse Pulse Pulse Resp BP BP 07/17/22 07:41 36.8 C 91 H 20 115/57 L 07/17/22 05:46 73 07/17/22 03:59 37.1 C 75 18 136/73 07/16/22 23:13 36.7 C 94 H 18 116/73 Pulse Ox O2 Del Method 07/17/22 07:41 99 Room Air 07/17/22 05:46 07/17/22 03:59 94 Room Air 07/16/22 23:13 97 Room Air Laboratory Results Laboratory Results - last 24 hr 07/16/22 07/16/22 07/16/22 11:30 11:30 11:30 WBC 7.83 RBC 2.95 L Hgb 8.0 L Hct 27.0 L MCV 91.5 MCH 27.1 MCHC 29.6 L RDW Std Deviation 71.0 H RDW Coeff of Bertha 21.2 H Plt Count 140 MPV 11.3 Immature Gran % (Auto) 0.4 Neut % (Auto) 83.0 Lymph % (Auto) 8.8 [place] % (Auto) 6.9 Eos % (Auto) 0.8 Baso % (Auto) 0.1 Neut # (Auto) 6.50 Lymph # (Auto) 0.69 L [place] # (Auto) 0.54 Eos # (Auto) 0.06 Baso # (Auto) 0.01 Immature Gran # (Auto) 0.03 H Platelet Estimate Anisocytosis Present Echinocytes 1+ PT 23.0 H INR 2.3 H APTT 38.7 H PTT Ratio 1.4 Sodium 136 Potassium 5.8 H Chloride 112 H Carbon Dioxide 16 L Anion Gap 8 BUN 94 H Creatinine 2.62 H Est Cr Clr Drug Dosing 22.1 Est GFR ( Amer) 19.4 Est GFR (Non-Af Amer) 16.7 BUN/Creatinine Ratio 35.9 H Glucose 104 H Calcium 8.9 Magnesium 2.0 Total Bilirubin 0.4 AST 14 ALT 9 Alkaline Phosphatase 136 H Troponin I High Sens B-Natriuretic Peptide Total Protein 6.3 Albumin 3.7 Globulin 2.6 Albumin/Globulin Ratio 1.4 Urine Color Urine Appearance Urine pH Ur Specific [place] Urine Protein Urine Glucose (UA) Urine Ketones Urine Blood Urine Nitrite Urine Bilirubin Urine Urobilinogen Ur Leukocyte Esterase Urine WBC (Auto) Urine RBC (Auto) U Hyaline Cast (Auto) U Epithel Cells (Auto) Urine Bacteria (Auto) SARS-CoV-2, RNA, NAAT 07/16/22 07/16/22 07/16/22 11:30 12:00 14:23 WBC RBC Hgb Hct MCV MCH MCHC RDW Std Deviation RDW Coeff of Bertha Plt Count MPV Immature Gran % (Auto) Neut % (Auto) Lymph % (Auto) [place] % (Auto) Eos % (Auto) Baso % (Auto) Neut # (Auto) Lymph # (Auto) [place] # (Auto) Eos # (Auto) Baso # (Auto) Immature Gran # (Auto) Platelet Estimate Anisocytosis Echinocytes PT INR APTT PTT Ratio Sodium Potassium Chloride Carbon Dioxide Anion Gap BUN Creatinine Est Cr Clr Drug Dosing Est GFR ( Amer) Est GFR (Non-Af Amer) BUN/Creatinine Ratio Glucose Calcium Magnesium Total Bilirubin AST ALT Alkaline Phosphatase Troponin I High Sens 11.4 B-Natriuretic Peptide Total Protein Albumin Globulin Albumin/Globulin Ratio Urine Color Yellow Urine Appearance Cloudy A Urine pH 5.0 Ur Specific [place] 1.010 Urine Protein 1+ H Urine Glucose (UA) Negative Urine Ketones Negative Urine Blood 2+ H Urine Nitrite Negative Urine Bilirubin Negative Urine Urobilinogen Negative Ur Leukocyte Esterase 3+ H Urine WBC (Auto) >30 H Urine RBC (Auto) 10-30 H U Hyaline Cast (Auto) 0 U Epithel Cells (Auto) >30 H Urine Bacteria (Auto) 1+ H SARS-CoV-2, RNA, NAAT NEGATIVE 07/16/22 07/16/22 07/17/22 17:46 17:46 05:31 WBC RBC Hgb Hct MCV MCH MCHC RDW Std Deviation RDW Coeff of Bertha Plt Count MPV Immature Gran % (Auto) Neut % (Auto) Lymph % (Auto) [place] % (Auto) Eos % (Auto) Baso % (Auto) Neut # (Auto) Lymph # (Auto) [place] # (Auto) Eos # (Auto) Baso # (Auto) Immature Gran # (Auto) Platelet Estimate Anisocytosis Echinocytes PT 25.2 H INR 2.5 H APTT PTT Ratio Sodium 136 Potassium 5.5 H Chloride 112 H Carbon Dioxide 17 L Anion Gap 7 BUN 88 H Creatinine 2.16 H D Est Cr Clr Drug Dosing 26.8 Est GFR ( Amer) 24.5 Est GFR (Non-Af Amer) 21.1 BUN/Creatinine Ratio 40.7 H Glucose 102 H Calcium 8.9 Magnesium Total Bilirubin AST ALT Alkaline Phosphatase Troponin I High Sens B-Natriuretic Peptide 108 H Total Protein Albumin Globulin Albumin/Globulin Ratio Urine Color Urine Appearance Urine pH Ur Specific [place] Urine Protein Urine Glucose (UA) Urine Ketones Urine Blood Urine Nitrite Urine Bilirubin Urine Urobilinogen Ur Leukocyte Esterase Urine WBC (Auto) Urine RBC (Auto) U Hyaline Cast (Auto) U Epithel Cells (Auto) Urine Bacteria (Auto) SARS-CoV-2, RNA, NAAT 07/17/22 07/17/22 05:31 05:31 WBC 5.07 RBC 2.74 L Hgb 7.5 L Hct 24.7 L MCV 90.1 MCH 27.4 MCHC 30.4 L RDW Std Deviation 69.7 H RDW Coeff of Bertha 21.0 H Plt Count 134 MPV 12.1 Immature Gran % (Auto) Neut % (Auto) Lymph % (Auto) [place] % (Auto) Eos % (Auto) Baso % (Auto) Neut # (Auto) Lymph # (Auto) [place] # (Auto) Eos # (Auto) Baso # (Auto) Immature Gran # (Auto) Platelet Estimate Normal Anisocytosis Echinocytes PT INR APTT PTT Ratio Sodium 140 Potassium 5.4 H Chloride 115 H Carbon Dioxide 19 L Anion Gap 6 BUN 75 H Creatinine 1.76 H D Est Cr Clr Drug Dosing 32.7 Est GFR ( Amer) 31.3 Est GFR (Non-Af Amer) 27.0 BUN/Creatinine Ratio 42.6 H Glucose 111 H Calcium 8.8 Magnesium 1.8 Total Bilirubin AST ALT Alkaline Phosphatase Troponin I High Sens B-Natriuretic Peptide Total Protein Albumin Globulin Albumin/Globulin Ratio Urine Color Urine Appearance Urine pH Ur Specific [place] Urine Protein Urine Glucose (UA) Urine Ketones Urine Blood Urine Nitrite Urine Bilirubin Urine Urobilinogen Ur Leukocyte Esterase Urine WBC (Auto) Urine RBC (Auto) U Hyaline Cast (Auto) U Epithel Cells (Auto) Urine Bacteria (Auto) SARS-CoV-2, RNA, NAAT PG Care Time/CCT Total # of Minutes Spent Total Time Spent with Patient: Total time spent is greater than 50% in coordination of care (as documented) at patient's floor/unit and/or counseling patient: Coding Level of Care Code 24692 Subseq Hosp Care Lvl 3 Diagnoses Acute kidney injury superimposed on CKD N17.9; N18.9 Anemia of chronic disease D63.8 Hyperkalemia E87.5 Moderate pulmonary hypertension I27.20
[2022-07-17] MEDS ORDERED: PRAMIPEXOLE DIHYDROCHLO 0.5 MG TAB PO PRN ×2 (12:24→13:12)
--- NOTE | 2022-07-17 12:42 | Hospitalist Progress Note ---
Date of Service July 17, 2022 Assessment & Plan (1) Acute kidney injury superimposed on CKD: (2) Hyperkalemia: (3) Cardiorenal syndrome with renal failure: (4) NIKKI (obstructive sleep apnea): (5) Acute heart failure with preserved ejection fraction (HFpEF): (6) Pulmonary embolism: (7) Hypothyroidism: (8) Venous insufficiency: (9) Anemia of chronic disease: Plan Ms. Garcia is a 77 year old that presented to the [facility] by the recommendation of her unscrambler based on her lab work obtained 07/15. K+ 6.0, creatinine 2.6 Acute Kidney Injury superimprosed on CKD Hyperkalemia Non-anion gap metabolic acidosis Creatinine on presentation 2.62; down trended to 1.76. Her baseline is around 1.3. Potassium 5.8 on presentation; down trended to 5.4. Bicarb increased to 19 Urine culture shows gram-negative bacilli Plan; Nephrology's recommendation appreciated. Continue to hold Lasix, lisinopril and spironolactone. Continue on ceftriaxone for UTI; will switch based on sensitivity Continue on oral bicarb supplement for NAGMA HFpEF, compensated Currently NYHA Class II-III. Follows with Barbara Toledo PA-C in [place] [facility] [place] notified of pt admission to follow while IPT Cardiac catheterization done January 2022 with clean coronaries. Evidence of pHTN and elevated right/left heart pressures; may be secondary to H/O PE Heart Healthy diet. HTN: Stable; Continue Coreg. Hold lisinopril Anemia of Chronic Disease: Fe+ deficiency Anemia: Hgb 8.0; baseline: Was receiving IV Venofer infusions. Denies She denies overt blood loss and remains asymptomatic Fe+ level 63 and TIBC 434. Continue Ferrous Sulfate Venous insufficiency: Chronic. Follows with Dr. Cobb/Shi. Continue compression/elevation. Arthritis: Takes Oxycodone 5 mg PO Q 4 PRN; has taken this for years and is managed by PCP. States she takes one or two per day. NIKKI: Not compliant with therapy. Last sleep study was over 10 years ago. Has seen pulmonary in the past H/O PE: On Coumadin; INR within goal. Continue home dosing. Hypothyroidism: Continue Synthroid Disposition: PCP: Dr. Conde Code Status: Full Code ; however, patient does not want to be kept alive if no means of meaningful recovery VTE Prophylaxis: Warfarin at home. Point of Contact: Son/POA: Jose Armando [phone] PLan to return home on DC Admission and Anticipated Discharge Date Admission Date: July 16, 2022 Subjective Patient seen and examined at bedside. She is sitting on the chair at the side of the bed. She denies any fever, chills, chest pain, shortness of breath, palpitation or abdominal pain. Multiple attempts to place IV line done overnight; unsuccessful. IV line placed in a.m. Review of Systems Review of Systems: All systems reviewed & are unremarkable except as noted in Subjective Physical Exam Physical Exam: Constitutional: Alert, oriented x3, not in any acute distress. Respiratory: normal respiratory effort, lungs clear to auscultation, no wheeze, rales, rhonchi. Normal insp/exp effort, no accessory muscle use Cardiovascular: RRR, no murmur, no edema Vessels: no JVD or carotid bruit Chest: normal inspection of chest Abdomen: normal bowel sounds, soft, nontender, no hepatosplenomegaly Musculoskeletal: no cyanosis or clubbing, extremities motor strength 5/5 Skin: no rashes, warm and dry normal turgor Neurologic: PERRL, EOMI, accommodation nl, no face palsy, no dysarthria CN's II- XI intact bilaterally and moves all extremities Psychiatric: A+Ox3, euthymic affect Lymphatic: no cervical or axillary lymphadenopathy : deferred Results & Data Results & Data ([facility]) Vital Signs (Past 12 Hours) Vital Signs Temp Pulse Pulse Pulse Resp BP BP 07/17/22 11:55 07/17/22 11:42 36.7 C 75 18 109/55 L 07/17/22 11:16 77 07/17/22 07:41 36.8 C 91 H 20 115/57 L 07/17/22 05:46 73 07/17/22 03:59 37.1 C 75 18 136/73 Pulse Ox O2 Del Method O2 Flow Rate 07/17/22 11:55 Room Air, Nasal Cannula 2.5 07/17/22 11:42 94 Room Air 07/17/22 11:16 07/17/22 07:41 99 Room Air 07/17/22 05:46 07/17/22 03:59 94 Room Air Laboratory Results Laboratory Results WBC 5.07 K/ul (4.8-10.8) 07/17/22 05:31 RBC 2.74 M/uL (3.93-5.22) L 07/17/22 05:31 Hgb 7.5 g/dl (12.0-16.0) L 07/17/22 05:31 Hct 24.7 % (34.1-44.9) L 07/17/22 05:31 MCV 90.1 fL (80.0-100.0) 07/17/22 05:31 MCH 27.4 pg (25.0-34.0) 07/17/22 05:31 MCHC 30.4 g/dL (32.0-36.0) L 07/17/22 05:31 RDW Std Deviation 69.7 fL (36.4-46.3) H 07/17/22 05:31 RDW Coeff of Bertha 21.0 % (11.5-14.5) H 07/17/22 05:31 Plt Count 134 K/uL (130-400) 07/17/22 05:31 MPV 12.1 fL (9.4-12.3) 07/17/22 05:31 Immature Gran % (Auto) 0.4 % 07/16/22 11:30 Neut % (Auto) 83.0 % 07/16/22 11:30 Lymph % (Auto) 8.8 % 07/16/22 11:30 Swain % (Auto) 6.9 % 07/16/22 11:30 Eos % (Auto) 0.8 % 07/16/22 11:30 Baso % (Auto) 0.1 % 07/16/22 11:30 Neut # (Auto) 6.50 K/uL (1.4-6.5) 07/16/22 11:30 Lymph # (Auto) 0.69 K/uL (1.2-3.4) L 07/16/22 11:30 Swain # (Auto) 0.54 K/uL (0.24-0.82) 07/16/22 11:30 Eos # (Auto) 0.06 K/uL (0-0.50) 07/16/22 11:30 Baso # (Auto) 0.01 K/uL (0-0.2) 07/16/22 11:30 Immature Gran # (Auto) 0.03 K/uL (0.00-0.02) H 07/16/22 11:30 Platelet Estimate Normal (Normal) 07/17/22 05:31 Anisocytosis Present 07/16/22 11:30 Echinocytes 1+ 07/16/22 11:30 PT 25.2 Seconds (9.0-12.0) H 07/17/22 05:31 INR 2.5 (0.9-1.1) H 07/17/22 05:31 APTT 38.7 Seconds (21.0-31.0) H 07/16/22 11:30 PTT Ratio 1.4 07/16/22 11:30 Sodium 140 mmol/L (136-145) 07/17/22 05:31 Potassium 5.4 mmol/L (3.5-5.1) H 07/17/22 05:31 Chloride 115 mmol/L (98-107) H 07/17/22 05:31 Carbon Dioxide 19 mmol/L (21-32) L 07/17/22 05:31 Anion Gap 6 (3-11) 07/17/22 05:31 BUN 75 mg/dl (6-23) H 07/17/22 05:31 Creatinine 1.76 mg/dl (0.6-1.2) H D 07/17/22 05:31 Est Cr Clr Drug Dosing 32.7 ml/min 07/17/22 05:31 Est GFR ( Amer) 31.3 ml/min 07/17/22 05:31 Est GFR (Non-Af Amer) 27.0 ml/min 07/17/22 05:31 BUN/Creatinine Ratio 42.6 (10-20) H 07/17/22 05:31 Glucose 111 mg/dl (70-99(Fasting)) H 07/17/22 05:31 Calcium 8.8 mg/dl (8.5-10.1) 07/17/22 05:31 Magnesium 1.8 mg/dl (1.7-2.4) 07/17/22 05:31 Total Bilirubin 0.4 mg/dl (0.2-1.0) 07/16/22 11:30 AST 14 U/L (13-39) 07/16/22 11:30 ALT 9 U/L (7-52) 07/16/22 11:30 Alkaline Phosphatase 136 U/L (34-104) H 07/16/22 11:30 Troponin I High Sens 11.4 pg/ml (0-14) 07/16/22 11:30 B-Natriuretic Peptide 108 pg/ml (0-100) H 07/16/22 17:46 Total Protein 6.3 gm/dl (6.0-8.3) 07/16/22 11:30 Albumin 3.7 gm/dl (3.4-5.0) 07/16/22 11:30 Globulin 2.6 gm/dl (2.5-4.0) 07/16/22 11:30 Albumin/Globulin Ratio 1.4 (0.9-2) 07/16/22 11:30 Urine Color Yellow 07/16/22 12:00 Urine Appearance Cloudy (Clear) A 07/16/22 12:00 Urine pH 5.0 (4.5-7.5) 07/16/22 12:00 Ur Specific Cary 1.010 (1.000-1.030) 07/16/22 12:00 Urine Protein 1+ (Negative) H 07/16/22 12:00 Urine Glucose (UA) Negative (Negative) 07/16/22 12:00 Urine Ketones Negative (Negative) 07/16/22 12:00 Urine Blood 2+ (Negative) H 07/16/22 12:00 Urine Nitrite Negative (Negative) 07/16/22 12:00 Urine Bilirubin Negative (Negative) 07/16/22 12:00 Urine Urobilinogen Negative (Negative) 07/16/22 12:00 Ur Leukocyte Esterase 3+ (Negative) H 07/16/22 12:00 Urine WBC (Auto) >30 /hpf (0-5) H 07/16/22 12:00 Urine RBC (Auto) 10-30 /hpf (0-4) H 07/16/22 12:00 U Hyaline Cast (Auto) 0 /lpf (0-5) 07/16/22 12:00 U Epithel Cells (Auto) >30 /lpf (0-5) H 07/16/22 12:00 Urine Bacteria (Auto) 1+ (Negative) H 07/16/22 12:00 SARS-CoV-2, RNA, NAAT NEGATIVE (NEGATIVE) 07/16/22 14:23 Impressions Renal Ultrasound 07/16/22 11:37 ULTRASOUND KIDNEYS AND BLADDER CLINICAL HISTORY: Elevated creatinine. COMPARISON STUDY: Abdominal CT dated 06/13/2021 TECHNIQUE: Real-time, grayscale, and color flow sonography of the kidneys and bladder is performed. Images are reviewed in the transverse and longitudinal planes. FINDINGS: Kidneys: The kidneys demonstrated cortical atrophy. Echotexture is normal. The right kidney measures 9.7 cm in length and the left kidney measures 9.4 cm in length. There is no hydronephrosis. No shadowing renal calculi are identified. A subcentimeter cyst is noted in the right lower pole. There is no sonographic evidence of contour deforming renal mass lesion. No perinephric fluid is identified. Bladder: The bladder is normal in appearance. Ureteral jets were not seen. IMPRESSION: 1. The kidneys are atrophic and without hydronephrosis. 2. The bladder is normal as visualized. ACT 112: Negative or not required by law. Electronically signed by: Mir Lorenzo M.D. 07/16/2022 1:44 PM Chest X-Ray 07/16/22 15:12 XR chest 1V portable HISTORY: cardiorenal syndrome COMPARISON: Chest 01/22/2022. FINDINGS: No pneumothorax. No pleural effusions. The heart remains enlarged. There is mild central pulmonary vascular congestion without overt edema. There are low lung volumes with chronic elevation the right hemidiaphragm, unchanged. There are bilateral total shoulder arthroplasties. IMPRESSION: Cardiomegaly with mild central pulmonary vascular congestion without overt edema. ACT 112: Negative or not required by law. Electronically signed by: Elfego Kingston M.D. 07/16/2022 3:43 PM
[2022-07-17] MEDS: WARFARIN SOD 5 MG TAB PO SCH (17:22)
[2022-07-17] MEDS: cefTRIAXone SODIUM 2,000 MG in DEXTROSE 5% 50 ML IV SCH (17:22)
[2022-07-17] MEDS ORDERED: PRAMIPEXOLE DIHYDROCHLO 0.5 MG TAB PO SCH (18:00)
[2022-07-18 06:12] LABS: Hematocrit (blood only) 26.5 % (34.1-44.9); Hemoglobin 7.8 g/dl (12.0-16.0); Mean Corpuscular Hemoglobin 26.6 pg (25.0-34.0); Mean Corpuscular Hgb Conc 29.4 g/dL (32.0-36.0); Mean Corpuscular Volume 90.4 fL (80.0-100.0); Mean Platelet Volume 12.5 fL (9.4-12.3); Platelet Count 152 K/uL (130-400); RDW Coefficient of Variation 21.2 % (11.5-14.5); RDW Standard Deviation 70.1 fL (36.4-46.3); Red Blood Count 2.93 M/uL (3.93-5.22); White Blood Count 3.01 K/ul (4.8-10.8)
[2022-07-18 06:29] LABS: INR 3.3 (0.9-1.1); Iron 37 mcg/dl (35-150); Prothrombin Time 32.6 Seconds (9.0-12.0); Total Iron Binding Cap Calc 381 mcg/dl (250-450); Transferrin (FE) Percent Satur 10 % (15-50); Unsaturated Iron Binding Cap 344 mcg/dl (155-355)
[2022-07-18] MEDS: LEVOTHYROXINE SODIUM 112 MCG TABLET PO SCH (06:30)
[2022-07-18] MEDS: SODIUM BICARBONATE 650 MG TAB PO SCH (06:30)
[2022-07-18 06:47] LABS: Albumin Globulin Ratio 1.5 (0.9-2); Albumin Level 3.5 gm/dl (3.4-5.0); BUN Creatinine Ratio 38.1 (10-20); Bilirubin,Total 0.3 mg/dl (0.2-1.0); Calcium 9.1 mg/dl (8.5-10.1); Creatinine Clr Calc Pharmacy 46.1 ml/min; Est GFR (African American) 50.8 ml/min; Est GFR (Non-African American) 43.8 ml/min; Globulin 2.4 gm/dl (2.5-4.0); Potassium 4.8 mmol/L (3.5-5.1); Total Protein 5.9 gm/dl (6.0-8.3)
[2022-07-18] MEDS: oxyCODONE HCL IR 5 MG TAB (IMMEDIATE RELEASE) PO PRN (08:15)
[2022-07-18] MEDS: PANTOprazole 40 MG TAB PO SCH (08:16)
[2022-07-18] MEDS: carvediloL 12.5 MG TAB PO SCH (08:16)
[2022-07-18] MEDS: FERROUS SULFATE 325 MG TAB PO SCH (08:16)
[2022-07-18] MEDS: DOCUSATE SODIUM 100 MG CAP PO SCH (08:16)
[2022-07-18] MEDS: AMITRIPTYLINE HCL 25 MG TAB PO SCH (08:16)
[2022-07-18] MEDS ORDERED: IRON SUCROSE 200 MG in 0.9 % SODIUM CHLORIDE 100 ML IV ONE (10:30)
[2022-07-18] MEDS: COLESTIPOL HCL 1 GM TAB PO SCH (10:45)
--- NOTE | 2022-07-18 11:15 | Nephrology Progress Note ---
Date of Service July 18, 2022 Assessment & Plan (1) Acute kidney injury superimposed on CKD: Plan: Improved. Attributed to prerenal physiology. Lisinopril, furosemide, and spironolactone held. May stop PO HCO3 supplement. BP and volume status acceptable. Electrolytes normalize. Medications are currently appropriately dosed for kidney function. Follow up with Dr. Milian next week as scheduled. Obtain a metabolic profile prior to visit (this could be drawn on Tuesday when she returns to [facility] for scheduled PFTs). (2) Anemia of chronic disease: Plan: History of iron deficiency. Anemia disproportionate to baseline kidney dysfunction. H/H stable. Remains iron deficient. Will try to provide on dose of IV Venofer 200 mg today. (3) Hyperkalemia: Plan: Resolved. Hold lisinopril and spironolactone. (4) Moderate pulmonary hypertension: Plan: Diuretics held for now. Monitor daily weight at home. Close outpatient follow up scheduled. Admission and Anticipated Discharge Date Admission Date: July 16, 2022 Subjective No acute events overnight. Asuncion feels well this AM. BP acceptable. Appetite is good. She denies fluid retention or edema. Hopes to go home today. Review of Systems Review of Systems: All systems reviewed & are unremarkable except as noted in HPI & below Physical Exam Constitutional: well developed; no acute distress Eyes: no scleral abnormality and no corneal abnormality ENMT: Mouth: no oral mucosal abnormality and oral mucous membranes not dry Neck: normal visual inspection and trachea midline Respiratory: normal respiratory effort Auscultation: lungs clear to auscultation bilaterally and + rales Cardiovascular: Rate/Rhythm: regular rate Heart Sounds: normal S1 and diana l S2 Extremities: + edema Musculoskeletal: Extremities: no cyanosis and no clubbing Skin: + turgor decreased; no lesions Neurologic: Motor/Sensory: no tremor and no asterixis Psychiatric: Orientation: alert and oriented x 3 Results & Data ([facility]) Vital Signs (Past 12 Hours) Vital Signs Temp Pulse Pulse Resp BP BP Pulse Ox 07/18/22 09:05 07/18/22 08:03 36.7 C 73 18 118/60 94 07/18/22 07:16 68 07/18/22 03:47 36.7 C 65 18 109/63 95 07/18/22 02:17 66 07/18/22 00:00 36.7 C 66 20 103/67 95 O2 Del Method O2 Flow Rate 07/18/22 09:05 Room Air, Nasal Cannula 2.5 07/18/22 08:03 Room Air 07/18/22 07:16 07/18/22 03:47 Room Air 07/18/22 02:17 07/18/22 00:00 Room Air Laboratory Results Laboratory Results - last 24 hr 07/18/22 07/18/22 07/18/22 05:32 05:32 05:32 WBC 3.01 L RBC 2.93 L Hgb 7.8 L Hct 26.5 L MCV 90.4 MCH 26.6 MCHC 29.4 L RDW Std Deviation 70.1 H RDW Coeff of Bertha 21.2 H Plt Count 152 MPV 12.5 H PT 32.6 H INR 3.3 H Sodium 142 Potassium 4.8 Chloride 114 H Carbon Dioxide 22 Anion Gap 6 BUN 45 H D Creatinine 1.18 D Est Cr Clr Drug Dosing 46.1 Est GFR ( Amer) 50.8 Est GFR (Non-Af Amer) 43.8 BUN/Creatinine Ratio 38.1 H Glucose 99 Calcium 9.1 Iron TIBC Unsaturated IBC Transferrin % Sat Ferritin Pending Total Bilirubin 0.3 AST 12 L ALT 9 Alkaline Phosphatase 131 H Total Protein 5.9 L Albumin 3.5 Globulin 2.4 L Albumin/Globulin Ratio 1.5 07/18/22 05:32 WBC RBC Hgb Hct MCV MCH MCHC RDW Std Deviation RDW Coeff of Bertha Plt Count MPV PT INR Sodium Potassium Chloride Carbon Dioxide Anion Gap BUN Creatinine Est Cr Clr Drug Dosing Est GFR ( Amer) Est GFR (Non-Af Amer) BUN/Creatinine Ratio Glucose Calcium Iron 37 TIBC 381 Unsaturated IBC 344 Transferrin % Sat 10 L Ferritin Total Bilirubin AST ALT Alkaline Phosphatase Total Protein Albumin Globulin Albumin/Globulin Ratio PG Care Time/CCT Total # of Minutes Spent Total Time Spent with Patient: Total time spent is greater than 50% in coordination of care (as documented) at patient's floor/unit and/or counseling patient: Coding Level of Care Code 49464 Subseq Hosp Care Lvl 3 Diagnoses Acute kidney injury superimposed on CKD N17.9; N18.9 Anemia of chronic disease D63.8 Hyperkalemia E87.5 Moderate pulmonary hypertension I27.20
[2022-07-18 12:11] LABS: Ferritin 102.5 ng/ml (8-388)
--- NOTE | 2022-07-18 14:10 | Discharge Summary ---
Date of Service July 18, 2022 Admission HPI Per Admitting Provider Ms. Asuncion Garcia is a 77 year old female who presented to the [facility] as per recommendation by her Thai Masseur based on routine laboratory work performed yesterday 07/15 with a K+ level of 6.0. In the ED today, her K+ level is 5.8 and creatinine is 2.6. Additional PMH includes: HTN, CKD 3, PE (on Coumadin - recent INR 2.3), CHF. She reported some bruising on her arm after gently bumping it over the weekend. Additional PMH includes: HTN, diastolic CHF with last echo on 01/13/22 showing new lateral inferolateral wall motion abnormality, Mitral regurg, history of DVT on Coumadin, CKD stage III, anemia, generalized anxiety disorder, venous stasis ulcers and restless legs. Patient denies HUNTER, dizziness, SOB, orthopnea, N/V/D, appetite changes, skin changes. Patient was sitting on the side of her bed int he ED in no apparent distress during my examination. Discussed case with Nephro and plan for admission for further evaluation and management. Please see A/P for further details. Admission Exam Per Admitting Provider Neuro: AAOx4, PERRLA, no aphagia, memory changes, CNII-XII grossly intact HEENT: head normocephalic, moist mucus membranes CV: S1/S2, (-) M/G/R, (-) edema, cap refill < 3 seconds Resp: Lungs CTA in all farai. On RA GI: Abdomen S/NT/ND, Ax4 bowel sounds, (-) CVA tenderness Musculoskeletal: 5/5 B/L UE strength, 5/5 B/L LE strength. No gait disturbance Skin: (-) rashes , (-) erythema. Psych: euthymic mood Principal Diagnosis Acute Kidney Injuryon CKD Hyperkalemia Non-anion gap metabolic acidosis Discharge Exam Constitutional: Alert, oriented x3, not in any acute distress. Respiratory: normal respiratory effort, lungs clear to auscultation, no wheeze, rales, rhonchi. Normal insp/exp effort, no accessory muscle use Cardiovascular: RRR, no murmur, no edema Vessels: no JVD or carotid bruit Chest: normal inspection of chest Abdomen: normal bowel sounds, soft, nontender, no hepatosplenomegaly Musculoskeletal: no cyanosis or clubbing, extremities motor strength 5/5 Skin: no rashes, warm and dry normal turgor Neurologic: PERRL, EOMI, accommodation nl, no face palsy, no dysarthria CN's II- XI intact bilaterally and moves all extremities Psychiatric: A+Ox3, euthymic affect Lymphatic: no cervical or axillary lymphadenopathy : deferred Discharge Data Allergies Allergy/AdvReac Type Severity Reaction Status Date / Time No Known Allergies Allergy Verified 06/28/22 14:00 Consultations 07/16/22 14:52 Consult Nephrology Routine 07/16/22 14:54 ED Decision to Admit Stat 07/16/22 17:46 [facility] CHF Program Referral Routine Ordered Studies 07/16/22 11:37 US Renal Bladder [US renal/blad retro comp] Stat Hospital Course (1) Acute kidney injury superimposed on CKD: (2) Hyperkalemia: (3) Cardiorenal syndrome with renal failure: (4) NIKKI (obstructive sleep apnea): (5) Acute heart failure with preserved ejection fraction (HFpEF): (6) Pulmonary embolism: (7) Hypothyroidism: (8) Venous insufficiency: (9) Anemia of chronic disease: Plan Ms. Garcia is a 77 year old that presented to the [facility] by the recommendation of her insurance claims supervisor based on her lab work obtained 07/15 which showed potassium of 6.0 and creatinine of 2.6. In the ED, she was found to have potassium level of 5.8 and a creatinine of 2.6. She was also found to have non- anion gap metabolic acidosis. Patient was admitted to the floor and nephrology was consulted. Patient was treated with isotonic IV fluids and oral bicarb tablets. Patient's hyperkalemia, JULISSA and metabolic acidosis resolved over the course of the treatment. Patient's lisinopril, Aldactone and Lasix was held throughout admission. Patient was asked to continue to hold the medication after discharge till she follows up with her insurance claims supervisor on . Total Time Total Time Spent Total Time Spent (In Minutes): 35 Total Time Includes: Examination of the Patient, Discharge Planning, Medication Reconciliation, Communication With Other Providers and Other Discharge Plan Discharge Items Patient Disposition: Home - Self-Care Reason For Visit: ABNORMAL LABS Discharge Diagnosis: (1) Acute kidney injury superimposed on CKD: (2) Hyperkalemia: (3) Cardiorenal syndrome with renal failure: (4) NIKKI (obstructive sleep apnea): (5) Acute heart failure with preserved ejection fraction (HFpEF): (6) Pulmonary embolism: (7) Hypothyroidism: (8) Venous insufficiency: (9) Anemia of chronic disease: Activity: Resume your previous activity Non-emergency contact: Primary Care Provider Call non-emergency contact if: you have any medication questions Follow-up/Referrals: Tristan Conde MD [Primary Care Provider] - Diet: Regular Addtl Attending Provider Instructions: You Were admitted to the hospital for abnormal kidney function and increase potassium. They have improved during the hospitalization. Please do not take the following medication till you see your Thai Masseur on . 1) Lisinopril 2) Spironolactone 3) Furosemide Please continue to take your warfarin as prescribed before. Please take other medication as prescribed Pending Studies at Discharge: No Stand-Alone Forms: [employer], Smoking Cessation Medications and DC Order Prescriptions: Continued gabapentin 100 mg capsule 300 mg PO TID carvedilol 12.5 mg tablet 12.5 mg PO BID Qty: 180 3RF Venofer 200 mg iron/10 mL solution 200 mg IV Q2D Qty: 50 0RF Rx Instructions: administer over 30 mins ferrous sulfate 325 mg (65 mg iron) tablet,delayed release (DR/EC) 325 mg PO QAM Qty: 90 3RF docusate sodium 100 mg capsule 100 mg PO BID Qty: 60 0RF lorazepam 0.5 mg tablet 0.5 mg PO TID PRN (Reason: anxiety) Qty: 90 0RF oxycodone 5 mg tablet 5 mg PO Q4H PRN (Reason: pain) Qty: 60 0RF pantoprazole 40 mg tablet,delayed release (DR/EC) 40 mg PO BID Qty: 180 3RF pramipexole 0.25 mg tablet 0.5 mg PO QPM Rx Instructions: administer 2 - 3 hours before bedtime warfarin 5 mg Tablet 2.5 mg PO WK Rx Instructions: TAKES ON FRIDAYS. warfarin 5 mg Tablet 5 mg PO [id number] Rx Instructions: TAKES EVERY DAY EXCEPT FRIDAYS. amitriptyline 25 mg tablet 25 mg PO QAM colestipol 1 gram tablet 2 gm PO BID levothyroxine 112 mcg capsule 112 mcg PO QAM cholecalciferol (vitamin D3) 50,000 unit capsule 50,000 units PO WK Rx Instructions: on Sundays Discontinued spironolactone 25 mg tablet 25 mg PO DAILY Qty: 30 2RF lisinopril 40 mg tablet 40 mg PO QAM furosemide [Lasix] 40 mg tablet 40 mg PO DAILY Qty: 30 1RF furosemide 20 mg tablet 20 mg PO DAILY Qty: 0 0RF Discharge Orders: Discharge Order (Routine); Ordered 07/18/22 Ordered By: Layton More/Other Patient Handouts: Hyperkalemia Dc, ED Diet for Chronic Kidney Disease Admission Data Admit Date/Time: 07/16/22 14:52 Attending Provider: Layton Ricketts Admit Provider: Africa Miller Primary Care Provider: Tristan Conde Other Providers: Junior Hernández ; Africa Miller ; Barbara Toledo Other Interventions: Discharge Summary Assessment (RN) Last Done: 07/18/22 11:52
[2022-07-23] MEDS ORDERED: WARFARIN SOD 2.5 MG TAB PO SCH (16:00)
== END 2022-07-18 13:36 | disposition home or self-care (01) | DRG 682 ==
LOC: ED 11:06 → EDINP 14:52 → SUATTDRO 14:52 → 2N 18:29

== ENCOUNTER 2022-09-21 11:09 | Inpatient (IN) ==
[2022-09-21 11:31] LABS: Basophils # (auto) 0.01 K/uL (0-0.2); Basophils % (auto) 0.2 %; Eosinophils % (auto) 2.2 %; Hematocrit (blood only) 39.1 % (34.1-44.9); Hemoglobin 12.6 g/dl (12.0-16.0); Immature Granulocytes # (auto) 0.01 K/uL (0.00-0.02); Immature Granulocytes % (auto) 0.2 %; Lymphocytes # (auto) 0.75 K/uL (1.2-3.4); Lymphocytes % (auto) 16.2 %; Mean Corpuscular Hgb Conc 32.2 g/dL (32.0-36.0); Mean Corpuscular Volume 93.1 fL (80.0-100.0); Mean Platelet Volume 11.7 fL (9.4-12.3); Monocytes # (auto) 0.31 K/uL (0.24-0.82); Monocytes % (auto) 6.7 %; Neutrophils # (auto) 3.45 K/uL (1.4-6.5); Neutrophils % (auto) 74.5 %; Platelet Count 149 K/uL (130-400); RDW Coefficient of Variation 16.4 % (11.5-14.5); RDW Standard Deviation 55.6 fL (36.4-46.3); White Blood Count 4.63 K/ul (4.8-10.8)
[2022-09-21 11:41] LABS: INR 1.8 (0.9-1.1); Prothrombin Time 18.7 Seconds (9.0-12.0)
[2022-09-21] MEDS ORDERED: ACETAMINOPHEN 1,000 MG/100 ML VIAL IV STA (11:43)
--- NOTE | 2022-09-21 11:49 | XRay Report ---
XR chest 1V portable CLINICAL HISTORY: Atypical chest pain. COMPARISON STUDY: Chest radiograph July 16, 2022. Chest CT July 20, 2022. FINDINGS: Bilateral shoulder arthroplasties are incidentally noted. There is no pneumothorax. Suspect ed small left and trace right pleural effusions are noted. Pronounced interstitial thickening has dev eloped. Cardiomegaly is noted. IMPRESSION: 1. Pronounced interstitial thickening consistent with interstitial pulmonary edema. 2. Suspected small left and trace right pleural effusions. ACT 112: Negative or not required by law. Electronically signed by: Jim Snyder M.D. 09/21/2022 11:48 AM
[2022-09-21 12:02] LABS: Troponin I High Sensitivity 16.4 pg/ml (0-14)
[2022-09-21 12:03] LABS: Albumin Globulin Ratio 1.4 (0.9-2); Albumin Level 3.9 gm/dl (3.4-5.0); BUN Creatinine Ratio 19.8 (10-20); Bilirubin,Total 0.5 mg/dl (0.2-1.0); Calcium 9.4 mg/dl (8.5-10.1); Creatinine Clr Calc Pharmacy 59.4 ml/min; Est GFR (African American) 69.5 ml/min; Globulin 2.7 gm/dl (2.5-4.0); Magnesium 1.7 mg/dl (1.7-2.4); Phosphorus 3.4 mg/dl (2.5-4.9); Potassium 4.1 mmol/L (3.5-5.1); Total Protein 6.6 gm/dl (6.0-8.3)
[2022-09-21 12:11] LABS: Influenza A virus by PCR Negative (Neg); Influenza B virus by PCR Negative (Neg); RSV by PCR Negative (Neg); SARS CoV2 RNA(COVID-19)Cepheid NEGATIVE (Negative)
[2022-09-21] MEDS ORDERED: FUROSEMIDE 40 MG/4 ML VIAL IV ONE (12:34)
--- NOTE | 2022-09-21 12:53 | Emergency Department Note ---
Impression & Plan Acute respiratory failure with hypoxia, Hypertensive emergency, Pulmonary edema, Elevated troponin ED Provider Note NAME: YEE MERIDA AGE: 77 SEX: F ARRIVES VIA: Ambulance INFORMANT: Patient, EMS ED PROVIDER(S): Reji Jackson MD CHIEF COMPLAINT: SOB PLAN: Disposition: Admit MEDICAL DECISION MAKING: The patient is a pleasant 77-year-old woman with a past medical history of CHF with preserved EF, pulmonary hypertension, NIKKI, history of DVT on warfarin, IBS, CKD who presents to the emergency department via EMS in acute respiratory fail ure where she reports she has been feeling unwell for the past several weeks and was on her way to her cardiology appointment today when she was increasingly short of breath and had to machine tack puller at an EMS station where they found her to be hypoxic in the low 80s and cyanotic with increased work of breathing. They noted her blood pressure was in the 230s. They gave her 3 doses of nitroglycerin and aspirin as well as placed her on nonrebreather and eventually CPAP with gradual improvement in her work of breathing. Patient denies any fevers, chills, cough, GI or symptoms. She reports she has been taken off of her diuretics due to renal failure. She was admitted to this facility in of this year with creatinine as high as 2.6. On arrival the patient is an acute respiratory distress with increased work of breathing with rales and rhonchi bilateral lung faria. Her O2 saturation is in the mid 90s on BiPAP and showing progressive improvement. Blood pressure had improved to the 150s/100s. She appears hypervolemic with bilateral lower extremity edema. EKG is without overt acute ischemia. Chest x-ray demonstrates pulmonary edema consistent with the patient's presentation. Note is made of suspected pleural effusions. WBC 4.6K nonspecific. H/H and platelets within normal limits. Chemistry without metabolic acidosis. Lactic acid 1.1, within normal limits. LFTs wi thout significant abnormality. High-sensitivity troponin 16.4, nonspecific. BNP 580, increased from patient's prior values. Procalcitonin is undetectable. COVID-19, influenza and RSV PCR's was negative. Given patient's acute respiratory failure related to flash pulmonary edema and hypertension she agrees with plan for admission. Case was discussed with Lili Lopez PAC with Dr. Stein, Lili hospitalist, who will evaluate the patient for admission. Triage Nursing notes reviewed and agree them. Prior medical records reviewed Vital Signs: reviewed and remarkable hypertension, tachypnea, hypoxia Differential diagnosis: Reactive airway disease, pneumonia, pneumothorax, COPD, CHF, infections, cardiac ischemia, pulmonary embolism, musculoskeletal, gastrointestinal, as well as other pathologies. ER treatment provided: See below. Diagnostics interpreted by me: ECG: Sinus rhythm with sinus arrhythmia, 99 bpm, no ectopy, no overt ST elevation or depression, QTC 487, QRS 122. Cardiac Monitoring: An order for continuous cardiac monitoring was placed and demonstrated Sinus rhythm with sinus arrhythmia, 99 bpm, no ectopy Laboratory studies: See below Imaging studies: See below Consultation(s): Case was discussed with Lili Lopez PAC with Lili Solis hospitalist, who will evaluate the patient for admission. HPI: The patient is a pleasant 77-year-old woman with a past medical history of CHF with preserved EF, pulmonary hypertension, NIKKI, history of DVT on warfarin, IBS, CKD who presents to the emergency department via EMS in acute respiratory failure where she reports she has been feeling unwell for the past several weeks and was on her way to her cardiology appointment today when she was increasingly short of breath and had to machine tack puller at an EMS station where they found her to be hypoxic in the low 80s and cyanotic with increased work of breathing. They noted her blood pressure was in the 230s. They gave her 3 doses of nitroglycerin and aspirin as well as placed her on nonrebreather and eventually CPAP with gradual improvement in her work of breathing. Patient denies any fevers, chills, cough, GI or symptoms. She reports she has been taken off of her diuretics due to renal failure. She was admitted to this facility in July of this year with creatinine as high as 2.6. ROS: See above HPI for pertinent positives & negatives. A total of 10 systems reviewed and were otherwise negative. VITALS:See Below PHYSICAL EXAMINATION: GENERAL: Awake, alert, ill-appearing, in no distress, BMI 51.5 HENT: Normocephalic, atraumatic. Oropharynx unremarkable. EYES: Normal conjunctiva. Sclera non-icteric. NECK: Supple. No nuchal rigidity. FROM. No JVD. RESPIRATORY: Bilateral rales and rhonchi with increased work of breathing. CARDIAC: Regular rate, normal rhythm. Extremities warm and well perfused. Pulses equal. ABDOMEN: Soft, non-distended. No tenderness to palpation. No rebound or guarding. No masses. RECTAL: Deferred. MUSCULOSKELETAL: Chest examination reveals no tenderness. The back is symmetrical on inspection without obvious abnormality. There is no CVA tende rness to palpation. No joint edema. LOWER EXTREMITIES: Calves are equal size bilaterally and non-tender. 1+ BLE edema. No discoloration. NEURO: Normal sensorium. No sensory or motor deficits noted. SKIN: No rash or jaundice noted. ED COURSE: Critical Care: I have personally spent greater than 75 minutes of critical care time in the direct management of this patient. This includes bedside care, interpretation of diagnostic studies, and testing, discussion with consultants, patient, and family members, and other required patient management activities. This 75 minutes is in excess of all separately billable procedures. Reji Jackson MD Past Med/Surg History Medical History Acute kidney injury superimposed on CKD Anemia resolved per pt, blood transfusions "many yrs ago" unknown cause per pt; mild asymptomatic per nephrology 08/2021 note Anemia of chronic disease Cardiorenal syndrome with renal failure Chronic anticoagulation PE and long time warfarin CKD (chronic kidney disease), stage III Contusion Depression controlled, stable per pt JOSE (generalized anxiety disorder) controlled, stable per pt Heart failure HTN (hypertension) controlled, stable per pt Hyperkalemia Hyperkalemia Hypothyroidism IBS (irritable bowel syndrome) NIKKI (obstructive sleep apnea) Intolerant to CPAP-no current treatment NIKKI (obstructive sleep apnea) Peripheral neuropathy feet, uses rolling walker consistently Pulmonary embolism on warfarin, follows with anticoagulation clinic Venous insufficiency Vitamin D deficiency Surgical History History of bilateral knee replacement History of cataract extraction right and left History of hysterectomy History of open reduction and internal fixation (ORIF) procedure right foot History of spinal fusion Hx of total shoulder replacement right and left Left reverse TSA 02/01/2018: LMA#4 + PNB. No issues per anesthesia progress note. S/P cardiac cath "2002 - normal coronaries" S/P cholecystectomy S/P left knee arthroscopy Family History Father Pulmonary embolism, Onset Age: 69 Stroke Mother , 93 Arthritis Hypertension Sister Breast cancer Social History Smoking Status: Never smoker Second Hand Exposure: No; Hx Alcohol Use: No Hx Substance Use: No Preferred Language: Khmer Communication Ability: Effective Visual Impairment: Limited Hearing Ability: Hard of Hearing Legislative Advocate Required: No Beliefs That Will Affect Care: None marital status: / Current Living Situation: Alone current occupational status: retired How many Children do You have: 2 How many Children do You have Comment: neither son is local, pt stated she has two sister in laws that assist with care as needed. She also has a niece that assists her frequently. Feels Safe at Home: Yes Safety Concerns: Feels Safe At This Time during the past year weight has: remained stable Assistive Devices: Oxygen - at Night and Walker Allergies Allergies Allergy/AdvReac Type Severity Reaction Status Date / Time No Known Allergies Allergy Verified 09/21/22 14:46 Home Meds Home Medications Medication Instructions Recorded Confirmed amitriptyline 25 mg tablet 25 mg PO HS 09/21/22 09/21/22 carvedilol 12.5 mg tablet 12.5 mg PO BID 09/21/22 09/21/22 colestipol 1 gram tablet 2 g PO AMHS 09/21/22 09/21/22 cyanocobalamin (vitamin B-12) 1,000 mcg PO DAILY 09/21/22 09/21/22 1,000 mcg tablet (Vitamin B-12) docusate sodium 100 mg capsule 100 mg PO BID PRN Constipation 09/21/22 09/21/22 ergocalciferol (vitamin D2) 1,250 1,250 mcg PO WE 09/21/22 09/21/22 mcg (50,000 unit) capsule ferrous sulfate 325 mg (65 mg 325 mg PO DAILY 09/21/22 09/21/22 iron) tablet (iron) furosemide 20 mg tablet (Lasix) 60 mg PO DAILY PRN .> swelling, wt 09/21/22 09/21/22 gain gabapentin 100 mg capsule 100 mg PO TID 09/21/22 09/21/22 levothyroxine 112 mcg tablet 112 mcg PO DAILY 09/21/22 09/21/22 lorazepam 0.5 mg tablet 0.5 mg PO TID PRN Anxiety 09/21/22 09/21/22 oxycodone 5 mg tablet 5 mg PO Q4 PRN Severe Pain (Scale 09/21/22 09/21/22 Score 7-10) pantoprazole 40 mg tablet,delayed 40 mg PO BID 09/21/22 09/21/22 release pramipexole 0.25 mg tablet 0.25 mg PO .QAFTERNOON 09/21/22 09/21/22 pramipexole 0.25 mg tablet 0.5 mg PO HS 09/21/22 09/21/22 warfarin 5 mg tablet 2.5 mg PO MOWEFRSA@1600 09/21/22 09/21/22 warfarin 5 mg tablet 5 mg PO SUTUTH@1600 09/21/22 09/21/22 Results & Data (ED) Vital Signs Vital Signs - 24 hr 09/21/22 11:18 09/21/22 11:18 09/21/22 11:15 Temperature 36.8 C Temperature Source Temporal Artery Scan Pulse Rate 91 H 104 H Respiratory Rate 30 H 38 H Respiratory Effort / Characteristics Short of Breath SOB on Exertion Spontaneous Respiratory Depth Normal Respiratory Pattern Tachypnea Blood Pressure 159/109 H Blood Pressure Mean 125 Pulse Oximetry 98 98 Oxygen Delivery Method CPAP BiPAP Fraction of Inspired Oxygen 40 Sepsis Recent Fever Within 48 Hours No Sepsis New/Unexplained Change in Mental Status No Sepsis Action Taken by Nursing No Action Required Laboratory Data Attestation: I reviewed the patient's lab results. Result diagrams: 09/21/22 11:18 09/21/22 11:18 Lab Results 09/21/22 09/21/22 09/21/22 Range/Units 11:18 11:18 11:18 WBC 4.63 L (4.8-10.8) K/ul RBC 4.20 (3.93-5.22) M/uL Hgb 12.6 (12.0-16.0) g/dl Hct 39.1 (34.1-44.9) % MCV 93.1 (80.0-100.0) fL MCH 30.0 (25.0-34.0) pg MCHC 32.2 (32.0-36.0) g/dL RDW Std Deviation 55.6 H (36.4-46.3) fL RDW Coeff of Bertha 16.4 H (11.5-14.5) % Plt Count 149 (130-400) K/uL MPV 11.7 (9.4-12.3) fL Immature Gran % (Auto) 0.2 % Neut % (Auto) 74.5 % Lymph % (Auto) 16.2 % [place] % (Auto) 6.7 % Eos % (Auto) 2.2 % Baso % (Auto) 0.2 % Neut # (Auto) 3.45 (1.4-6.5) K/uL Lymph # (Auto) 0.75 L (1.2-3.4) K/uL [place] # (Auto) 0.31 (0.24-0.82) K/uL Eos # (Auto) 0.10 (0-0.50) K/uL Baso # (Auto) 0.01 (0-0.2) K/uL Immature Gran # (Auto) 0.01 (0.00-0.02) K/uL PT 18.7 H (9.0-12.0) Seconds INR 1.8 H (0.9-1.1) Sodium 140 (136-145) mmol/L Potassium 4.1 (3.5-5.1) mmol/L Chloride 107 (98-107) mmol/L Carbon Dioxide 26 (21-32) mmol/L Anion Gap 7 (3-11) BUN 18 (6-23) mg/dl Creatinine 0.91 (0.6-1.2) mg/dl Est Cr Clr Drug Dosing 59.4 ml/min Est GFR ( Amer) 69.5 ml/min Est GFR (Non-Af Amer) 60.0 ml/min BUN/Creatinine Ratio 19.8 (10-20) Glucose 146 H (70-99(Fasting)) mg/dl Lactate (0.4-2.0) mmol/L Calcium 9.4 (8.5-10.1) mg/dl Phosphorus 3.4 (2.5-4.9) mg/dl Magnesium 1.7 (1.7-2.4) mg/dl Total Bilirubin 0.5 (0.2-1.0) mg/dl AST 13 (13-39) U/L ALT 9 (7-52) U/L Alkaline Phosphatase 174 H (34-104) U/L Troponin I High Sens 16.4 H D (0-14) pg/ml B-Natriuretic Peptide (0-100) pg/ml Total Protein 6.6 (6.0-8.3) gm/dl Albumin 3.9 (3.4-5.0) gm/dl Globulin 2.7 (2.5-4.0) gm/dl Albumin/Globulin Ratio 1.4 (0.9-2) Lipase 27 (11-82) U/L Procalcitonin (0-0.5) ng/ml SARS-CoV-2 (PCR) (Negative) Influenza Type A (PCR) (Neg) Influenza Type B (PCR) (Neg) RSV (RT-PCR) (Neg) 09/21/22 09/21/22 09/21/22 Range/Units 11:18 11:18 11:18 WBC (4.8-10.8) K/ul RBC (3.93-5.22) M/uL Hgb (12.0-16.0) g/dl Hct (34.1-44.9) % MCV (80.0-100.0) fL MCH (25.0-34.0) pg MCHC (32.0-36.0) g/dL RDW Std Deviation (36.4-46.3) fL RDW Coeff of Bertha (11.5-14.5) % Plt Count (130-400) K/uL MPV (9.4-12.3) fL Immature Gran % (Auto) % Neut % (Auto) % Lymph % (Auto) % [place] % (Auto) % Eos % (Auto) % Baso % (Auto) % Neut # (Auto) (1.4-6.5) K/uL Lymph # (Auto) (1.2-3.4) K/uL [place] # (Auto) (0.24-0.82) K/uL Eos # (Auto) (0-0.50) K/uL Baso # (Auto) (0-0.2) K/uL Immature Gran # (Auto) (0.00-0.02) K/uL PT (9.0-12.0) Seconds INR (0.9-1.1) Sodium (136-145) mmol/L Potassium (3.5-5.1) mmol/L Chloride (98-107) mmol/L Carbon Dioxide (21-32) mmol/L Anion Gap (3-11) BUN (6-23) mg/dl Creatinine (0.6-1.2) mg/dl Est Cr Clr Drug Dosing ml/min Est GFR ( Amer) ml/min Est GFR (Non-Af Amer) ml/min BUN/Creatinine Ratio (10-20) Glucose (70-99(Fasting)) mg/dl Lactate 1.1 (0.4-2.0) mmol/L Calcium (8.5-10.1) mg/dl Phosphorus (2.5-4.9) mg/dl Magnesium (1.7-2.4) mg/dl Total Bilirubin (0.2-1.0) mg/dl AST (13-39) U/L ALT (7-52) U/L Alkaline Phosphatase (34-104) U/L Troponin I High Sens (0-14) pg/ml B-Natriuretic Peptide 581 H (0-100) pg/ml Total Protein (6.0-8.3) gm/dl Albumin (3.4-5.0) gm/dl Globulin (2.5-4.0) gm/dl Albumin/Globulin Ratio (0.9-2) Lipase (11-82) U/L Procalcitonin < 0.05 (0-0.5) ng/ml SARS-CoV-2 (PCR) (Negative) Influenza Type A (PCR) (Neg) Influenza Type B (PCR) (Neg) RSV (RT-PCR) (Neg) 09/21/22 Range/Units 11:18 WBC (4.8-10.8) K/ul RBC (3.93-5.22) M/uL Hgb (12.0-16.0) g/dl Hct (34.1-44.9) % MCV (80.0-100.0) fL MCH (25.0-34.0) pg MCHC (32.0-36.0) g/dL RDW Std Deviation (36.4-46.3) fL RDW Coeff of Bertha (11.5-14.5) % Plt Count (130-400) K/uL MPV (9.4-12.3) fL Immature Gran % (Auto) % Neut % (Auto) % Lymph % (Auto) % [place] % (Auto) % Eos % (Auto) % Baso % (Auto) % Neut # (Auto) (1.4-6.5) K/uL Lymph # (Auto) (1.2-3.4) K/uL [place] # (Auto) (0.24-0.82) K/uL Eos # (Auto) (0-0.50) K/uL Baso # (Auto) (0-0.2) K/uL Immature Gran # (Auto) (0.00-0.02) K/uL PT (9.0-12.0) Seconds INR (0.9-1.1) Sodium (136-145) mmol/L Potassium (3.5-5.1) mmol/L Chloride (98-107) mmol/L Carbon Dioxide (21-32) mmol/L Anion Gap (3-11) BUN (6-23) mg/dl Creatinine (0.6-1.2) mg/dl Est Cr Clr Drug Dosing ml/min Est GFR ( Amer) ml/min Est GFR (Non-Af Amer) ml/min BUN/Creatinine Ratio (10-20) Glucose (70-99(Fasting)) mg/dl Lactate (0.4-2.0) mmol/L Calcium (8.5-10.1) mg/dl Phosphorus (2.5-4.9) mg/dl Magnesium (1.7-2.4) mg/dl Total Bilirubin (0.2-1.0) mg/dl AST (13-39) U/L ALT (7-52) U/L Alkaline Phosphatase (34-104) U/L Troponin I High Sens (0-14) pg/ml B-Natriuretic Peptide (0-100) pg/ml Total Protein (6.0-8.3) gm/dl Albumin (3.4-5.0) gm/dl Globulin (2.5-4.0) gm/dl Albumin/Globulin Ratio (0.9-2) Lipase (11-82) U/L Procalcitonin (0-0.5) ng/ml SARS-CoV-2 (PCR) NEGATIVE (Negative) Influenza Type A (PCR) Negative (Neg) Influenza Type B (PCR) Negative (Neg) RSV (RT-PCR) Negative (Neg) Administered Medications Oxycodone HCl (Oxycodone Hcl Ir 5 Mg Tab (Immediate Release)) 5 mg PO Q4 PRN PRN Reason: Severe Pain (Scale Score 7-10) Stop: 10/05/22 15:28 Last Admin: 09/21/22 19:22 Dose: 5 mg Documented By: PEGGY Pramipexole Dihydrochloride (Pramipexole Dihydrochlo 0.25 Mg Tab) 0.25 mg PO DAILY@1530 DOMINIQUE Stop: 10/21/22 15:29 Last Admin: 09/21/22 16:43 Dose: 0.25 mg Documented By: AM Warfarin Sodium (Warfarin Sod 5 Mg Tab) 5 mg PO SUTUTH@1600 DOMINIQUE Stop: 10/21/22 15:59 Last Admin: 09/21/22 16:43 Dose: 5 mg Documented By: AM Discontinued Medications Acetaminophen/Butalbital/Caffeine (Butalbital/Acetamin/Caffeine Tab) 1 tab PO ONE ONE Stop: 09/21/22 16:46 Last Admin: 09/21/22 17:28 Dose: 1 tab Documented By: AM Furosemide (Furosemide 40 Mg/4 Ml Vial) 40 mg IV ONE ONE Stop: 09/21/22 12:35 Last Admin: 09/21/22 12:53 Dose: 40 mg Documented By: LIBRADO Acetaminophen (Ofirmev) 1,000 mg in 100 mls @ 400 mls/hr IV NOW STA Stop: 09/21/22 11:57 Last Infusion: 09/21/22 12:08 Dose: 0 mls/hr Documented By: Admin: 09/21/22 11:47 Dose: 400 mls/hr Documented By: LIBRADO Imaging Data Radiologist's Impression: Chest X-Ray 09/21/22 11:13 XR chest 1V portable CLINICAL HISTORY: Atypical chest pain. COMPARISON STUDY: Chest radiograph July 16, 2022. Chest CT July 20, 2022. FINDINGS: Bilateral shoulder arthroplasties are incidentally noted. There is no pneumothorax. Suspected small left and trace right pleural effusions are noted. Pronounced interstitial thickening has developed. Cardiomegaly is noted. IMPRESSION: 1. Pronounced interstitial thickening consistent with interstitial pulmonary edema. 2. Suspected small left and trace right pleural effusions. ACT 112: Negative or not required by law. Electronically signed by: Jim Snyder M.D. 09/21/2022 11:48 AM Discharge Plan Visit Data Chief Complaint: Chest Pain Stated Complaint: CHEST PAIN, SOB ED Provider: Reji Jackson Discharge Problem: Acute respiratory failure with hypoxia, Hypertensive emergency, Pulmonary edema, Elevated troponin Patient Disposition: Admitted As Inpatient Discharge Instructions Interventions: ED Discharge Assessment Last Done: 09/21/22 13:34
--- NOTE | 2022-09-21 13:06 | History & Physical Report ---
Date of Service September 21, 2022 Assessment & Plan (1) Acute respiratory failure with hypoxia: (2) Flash pulmonary edema: (3) Acute heart failure with preserved ejection fraction (HFpEF): (4) Hypertensive emergency: (5) Venous insufficiency: (6) CKD (chronic kidney disease), stage III: (7) Restless leg syndrome: (8) Lymphedema: (9) Chronic anticoagulation: (10) JOSE (generalized anxiety disorder): (11) Morbid obesity with BMI of 50.0-59.9, adult: (12) NIKKI (obstructive sleep apnea): Plan This is a 77yo F with a PMH of HFpEF, HTN, CKD III, history of PE on coumadin, JOSE, venous stasis NIKKI non-compliant with CPAP and other medical issues listed below who presents via EMS in acute respiratory failure in setting of flash pulmonary edema, uncontrolled BP and decompensated HFpEF. Acute respiratory failure with hypoxia Flash pulmonary edema Hypertensive emergency Decompensated HFpEF Found to be hypoxic in the low 80s with mention of cyanosis and respiratory distress. Systolic blood pressure was in the 230s. Received 3 doses of nitroglycerin and 325 mg aspirin prior to arrival Transitioned from nonrebreather to BiPAP in the ED with significant improvement, now saturating at 98% on 2 L NC Recently had daily diuretics changed to Lasix 60mg PRN on Jul admission due to worsening renal failure - spironolactone and lisinopril have been held since Jul Pro-bnp 581, HS troponin 16.4, CXR with pronounced interstitial thickening consistent with interstitial pulmonary edema. Suspected small left and trace right pleural effusions Given 40mg Lasix in ED with good diuresis thus far of 650 mls Continue strict I&Os with hinojosa, daily weights, trend troponin BP improved to 165/99 Continue carvedilol BID Cardiology, nephrology consulted CKD III Cr 0.91, improved from 2.61 on previous admission Monitor with daily BMP History of PE on chronic anticoagulation Continue coumadin JOSE, depression Continue amitriptyline, PRN home ativan Morbid obesity BMI 51.5 NIKKI Intolerant to cpap per outpatient notes. Continue noctural O2 and now agreeable to sleep medicine referral- due for PFTs/sleep study later this month Urinary sx Completed Keflex course last month but still c/o dysuria and increased urgency. UA and urine cx pending DVT Ppx: Coumadin Code status: FULL PCP: [facility] Dispo: Admitted to PCU Patient seen in collaboration with Dr. Stein. Please see addendum. History of Present Illness Chief Complaint: SOB Primary Care Provider: Tristan Conde MD This is a 77yo F with a PMH of HFpEF, HTN, CKD III, history of PE on coumadin, JOSE, venous stasis NIKKI non-compliant with CPAP and other medical issues listed below who presents via EMS in acute respiratory failure. Patient was admitted to [facility] 07/16-07/18 with acute kidney injury on CKD, hyperkalemia and metabolic acidosis. Lasix, spironolactone and lisinopril were held during admission and time of discharge. Follows with Dr. Milian in clinic who has resumed PRN Lasix 60mg in follow up visits. Spironolactone and lisinopril still held. Patient has been feeling progressively worse over past few weeks but notably better on days after she takes lasix. [place] well enough yesterday to vacuum house and ambulate without issue. However, patient awoke this morning feeling significantly short of breath with chest pressure. Called heart failure clinic to make appointment and was driving when she felt increasing short of breath and had to loop puller an EMS station. Was found to be hypoxic in the low 80s with mention of cyanosis and respiratory distress. Systolic blood pressure was in the 230s. Received 3 doses of nitroglycerin and 325 mg aspirin. Transition from nonrebreather to CPAP with gradual improvement in work of breathing. Was transitioned to BiPAP in the ED where she is now saturating at 98%. Patient now endorsing headache. Also has had intermittent dysuria and difficulty urinating over the past week. Denies any fever, chills, lightheadedness, nausea, vomiting, abdominal pain, diarrhea or constipation. Allergies Allergy/AdvReac Type Severity Reaction Status Date / Time No Known Allergies Allergy Verified 09/21/22 14:46 Home Medications Medication Instructions Recorded Confirmed Type amitriptyline 25 mg tablet 25 mg PO HS 09/21/22 09/21/22 History carvedilol 12.5 mg tablet 12.5 mg PO BID 09/21/22 09/21/22 History colestipol 1 gram tablet 2 g PO AMHS 09/21/22 09/21/22 History cyanocobalamin (vitamin B-12) 1,000 mcg PO DAILY 09/21/22 09/21/22 History 1,000 mcg tablet (Vitamin B-12) docusate sodium 100 mg capsule 100 mg PO BID PRN Constipation 09/21/22 09/21/22 History ergocalciferol (vitamin D2) 1,250 1,250 mcg PO WE 09/21/22 09/21/22 History mcg (50,000 unit) capsule ferrous sulfate 325 mg (65 mg 325 mg PO DAILY 09/21/22 09/21/22 History iron) tablet (iron) furosemide 20 mg tablet (Lasix) 60 mg PO DAILY PRN .> swelling, wt 09/21/22 09/21/22 History gain gabapentin 100 mg capsule 100 mg PO TID 09/21/22 09/21/22 History levothyroxine 112 mcg tablet 112 mcg PO DAILY 09/21/22 09/21/22 History lorazepam 0.5 mg tablet 0.5 mg PO TID PRN Anxiety 09/21/22 09/21/22 History oxycodone 5 mg tablet 5 mg PO Q4 PRN Severe Pain (Scale 09/21/22 09/21/22 History Score 7-10) pantoprazole 40 mg tablet,delayed 40 mg PO BID 09/21/22 09/21/22 History release pramipexole 0.25 mg tablet 0.25 mg PO .QAFTERNOON 09/21/22 09/21/22 History pramipexole 0.25 mg tablet 0.5 mg PO HS 09/21/22 09/21/22 History warfarin 5 mg tablet 2.5 mg PO MOWEFRSA@1600 09/21/22 09/21/22 History warfarin 5 mg tablet 5 mg PO SUTUTH@1600 09/21/22 09/21/22 History Past Med/Surg History Medical History Acute kidney injury superimposed on CKD Anemia resolved per pt, blood transfusions "many yrs ago" unknown cause per pt; mild asymptomatic per nephrology 08/2021 note Anemia of chronic disease Cardiorenal syndrome with renal failure Chronic anticoagulation PE and long time warfarin CKD (chronic kidney disease), stage III Contusion Depression controlled, stable per pt JOSE (generalized anxiety disorder) controlled, stable per pt Heart failure HTN (hypertension) controlled, stable per pt Hyperkalemia Hyperkalemia Hypothyroidism IBS (irritable bowel syndrome) NIKKI (obstructive sleep apnea) Intolerant to CPAP-no current treatment NIKKI (obstructive sleep apnea) Peripheral neuropathy feet, uses rolling walker consistently Pulmonary embolism on warfarin, follows with anticoagulation clinic Venous insufficiency Vitamin D deficiency Surgical History History of bilateral knee replacement History of cataract extraction right and left History of hysterectomy History of open reduction and internal fixation (ORIF) procedure right foot History of spinal fusion Hx of total shoulder replacement right and left Left reverse TSA 02/01/2018: LMA#4 + PNB. No issues per anesthesia progress note. S/P cardiac cath "2002 - normal coronaries" S/P cholecystectomy S/P left knee arthroscopy Family History Father Pulmonary embolism, Onset Age: 69 Stroke Mother , 93 Arthritis Hypertension Sister Breast cancer Social History Smoking Status: Never smoker Second Hand Exposure: No; Hx Alcohol Use: No Hx Substance Use: No Preferred Language: Czech Communication Ability: Effective Visual Impairment: Limited Hearing Ability: Hard of Hearing Dumpcart Driver Required: No Beliefs That Will Affect Care: None marital status: / Current Living Situation: Alone current occupational status: retired How many Children do You have: 2 How many Children do You have Comment: neither son is local, pt stated she has two sister in laws that assist with care as needed. She also has a niece that assists her frequently. Feels Safe at Home: Yes Safety Concerns: Feels Safe At This Time during the past year weight has: remained stable Assistive Devices: Oxygen - at Night and Walker Review of Systems Review of Systems: At least ten systems reviewed and negative except as noted in the HPI. Physical Exam Physical Exam: General Appearance: WD/WN, vitals as above, NAD, sitting up in bed wearing bipap mask, alert and oriented, cooperative Head: normocephalic, atraumatic Eyes: normal inspection, PERRL, conjunctivae normal, anicteric sclerae ENT: external ear and nose normal, oropharynx normal Neck: normal visual inspection, trachea midline, no thyromegaly Respiratory: increased respiratory effort but improved on bipap, coarse lung sounds throughout faria with expiratory wheezing. No accessory muscle use Cardiovascular: regular rate, rhythm, no murmur, normal peripheral pulses, lymphedema present. Vessels: + JVD Chest: normal inspection of chest Abdomen/GI: normal bowel sounds, soft, nontender, no hepatosplenomegaly Extremities/Musculoskeletal: no cyanosis or clubbing, extremities motor strength 5/5, venous stasis Neurologic: PERRL, EOMI, accommodation nl, no face palsy, no dysarthria, CN's II-XI intact bilaterally and moves all extremities Psychiatric: A+Ox3, euthymic affect Skin: no rashes, normal color, warm/dry Results & Data Results & Data ([facility]) Vital Signs (Past 12 Hours) Vital Signs Temp Pulse Resp BP Pulse Ox O2 Del Method FiO2 09/21/22 11:15 104 H 38 H 98 40 09/21/22 11:18 BiPAP 09/21/22 11:18 36.8 C 91 H 30 H 159/109 H 98 CPAP Laboratory Results Short CBC 09/21/22 Range/Units 11:18 WBC 4.63 L (4.8-10.8) K/ul Hgb 12.6 (12.0-16.0) g/dl Hct 39.1 (34.1-44.9) % Plt Count 149 (130-400) K/uL BMP 09/21/22 11:18 Sodium 140 Potassium 4.1 Chloride 107 Carbon Dioxide 26 BUN 18 Creatinine 0.91 Glucose 146 H Calcium 9.4 Liver Function 09/21/22 Range/Units 11:18 Total Bilirubin 0.5 (0.2-1.0) mg/dl AST 13 (13-39) U/L ALT 9 (7-52) U/L Alkaline Phosphatase 174 H (34-104) U/L Albumin 3.9 (3.4-5.0) gm/dl Diagnostic Findings Chest X-Ray 09/21/22 11:13 XR chest 1V portable CLINICAL HISTORY: Atypical chest pain. COMPARISON STUDY: Chest radiograph July 16, 2022. Chest CT July 20, 2022. FINDINGS: Bilateral shoulder arthroplasties are incidentally noted. There is no pneumothorax. Suspected small left and trace right pleural effusions are noted. Pronounced interstitial thickening has developed. Cardiomegaly is noted. IMPRESSION: 1. Pronounced interstitial thickening consistent with interstitial pulmonary edema. 2. Suspected small left and trace right pleural effusions. ACT 112: Negative or not required by law. Electronically signed by: Jim Snyder M.D. 09/21/2022 11:48 AM ECG Additional Comments: Sinus rhythm with sinus arrhythmia at 99 bpm, no acute ST elevation or depression Code Status & VTE Plan VTE Prophylaxis Plan VTE Prophylaxis will be ordered: Yes Supervising Physician Co-Signing Physician Notes I have seen and examined the patient and have discussed the case with the provider above. I agree with the assessment and plan as stated with the following exceptions. 77 yo F with two weeks of progressive weight gain and dyspnea on exertion. She has been working closely with the heart failure clinic who has been guiding her on intermittent Lasix dosing. She also received a new course of prednisone for back pain, which promotes weight gain. She was found by EMS hypoxic and with a critically high blood pressure. She received nitro and aspirin in the field, and now reports a headache as a result. She received BIPAP and Lasix in the ER and is now breathing closer to baseline and on oxygen supplementation via nasal canula. She denies any chest pain and her biggest focus is getting rid of her headache. My exam is consistent with that above except she had clear lungs to auscultation that were diminished at the bases. She has peripheral lower extremity swelling without tory edema and chronic venouss stasis changes. Agree with plan above to dose Lasix at least daily without further Lasix tongiht given the great response to 40mg IV (750cc out in the ER). No evidence of ACS. It is most likely that she had acute heart failure developing over the past couple of weeks with additional side effects from recent prednisone and worsened flash pulmonary edema today when her blood pressure tamera to critical levels. Cont to monitor BP with goal<150/90 on average. Emil,
--- NOTE | 2022-09-21 14:25 | Electrocardiogram Report ---
Test Reason : Blood Pressure : / mmHG Vent. Rate : 099 BPM Atrial Rate : 099 BPM P-R Int : 210 ms QRS Dur : 122 ms QT Int : 380 ms P-R-T Axes : 031 041 000 degrees QTc Int : 487 ms Sinus rhythm with sinus arrhythmia with 1st degree A-V block Right bundle branch block Septal infarct , age undetermined Abnormal ECG When compared with ECG of 16-JUL-2022 12:03, Septal infarct is now Present Confirmed by Michael Javier ([id number]) on 09/21/2022 2:25:10 PM Referred By: Confirmed By:Michael Javier
[2022-09-21] MEDS ORDERED: ACETAMINOPHEN 325 MG TAB PO PRN (14:37)
[2022-09-21] MEDS ORDERED: POLYETHYLENE (MIRALAX) 17 GM PACK PO PRN (14:37)
[2022-09-21] MEDS ORDERED: ONDANSETRON INJ 2 MG/ML 2 ML VIAL IV PRN (14:37)
[2022-09-21] MEDS ORDERED: DOCUSATE SODIUM 100 MG CAP PO PRN (15:29)
[2022-09-21] MEDS ORDERED: LORazepam 0.5 MG TAB PO PRN (15:29)
[2022-09-21] MEDS ORDERED: WARFARIN SOD 5 MG TAB PO SCH (16:00)
[2022-09-21] MEDS: PRAMIPEXOLE DIHYDROCHLO 0.25 MG TAB PO SCH (16:43)
[2022-09-21] MEDS ORDERED: BUTALBITAL/ACETAMIN/CAFFEINE TAB PO ONE (16:45)
--- NOTE | 2022-09-21 17:47 | Nephrology Consultation ---
Date of Consultation September 21, 2022 Assessment & Plan (1) Hypertensive emergency: (2) Acute respiratory failure with hypoxia: (3) Flash pulmonary edema: (4) Anemia of chronic disease: (5) CKD (chronic kidney disease), stage III: (6) Anemia: Plan BP improving. Clinically, Asuncion is improving following IV furosemide 40 mg. Additional diuretic to be provided as needed to maintain negative fluid balance. Document strict I/O's and daily morning weights. Repeat metabolic profile tomorrow AM. Continue to avoid spironolactone and RANCHO/ARB options for now. Check renal artery duplex. UA/microscopy and culture pending. Low sodium diet. Consult with [facility] heart failure program prior to discharge. Continue cardvedilol per home RX. For anemia, Asuncion received Venofer during recent admission. Hgb has notably improved. Chronic anemia has been disproportionate to the degree of CKD and not fully explained. History of Present Illness Reason for Consultation: Accelerated HTN, history of JULISSA Requesting Physician: Parul Stein DO Attending Physician: Parul Stein DO History of Present Illness Asuncion Garcia is a 77 year-old female with chronic kidney disease and a history of JULISSA. She follows in the outpatient nephrology clinic with Dr. Milian. Medical history also notable for HFpEF, pulmonary hypertension, NIKKI, history of DVT, IBS, and chronic anemia. Asuncion presented to the ER at [facility] today for evaluation of shortness of breath. She was admitted with acute hypoxic respiratory distress. She describes intermittent symptoms of dyspnea which were unfortunately progressing over the past 2 weeks. She denies notable fluid retention or edema otherwise. Weight has been relatively stable. Asuncion had been managing her volume status with furosemide twice weekly. She was on her way to the [facility] heart failure clinic today when she decided to present to her local EMS for emergent evaluation. Respiratory distress initially treated with BIPAP. This has been weaned to 2 L NC. Asuncion describes brisk UOP following IV furosemide in the ER. She reports significant improvement. She denies any chest pain or palpitations. She notes that she did experience heaviness in her chest earlier today. she also describes a mild headache and a few days of mild dysuria. She denies fevers or chills. No sick contacts. Testing for COVID and influenza negative. Notable accelerated hypertension on admission. This is improving. In July, Asuncion was referred to the ER by Dr. Milian for evaluation and management of hyperkalemia and acute kidney injury. Routine laboratory studies had demonstrated a serum creatinine of 2.6 mg/dL. Asuncion had recently been started on spironolactone. Since this time, spironolactone and lisinopril have been held. Creatinine has improved to <1 mg/dL. Asuncion has CKD stage G3b A3. Her baseline creatinine had been 1.3 mg/dL. Urine sediment has been benign at baseline. UPCR 0.2 - 0.4. Renal US in July revealed symmetrically atrophic kidneys. Renal impairment is due to microvascular disease. Medical history notable for hypertension, HFpEF, NIKKI, hypothyroidism, obesity, depression, recurrent UTI, bladder prolapse, JOSE, venous stasis, history of PE on treatment with Coumadin, and anemia with noted i enoch deficiency. Acute on chronic anemia with iron deficiency recently noted on outpatient labs. 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 No NSAID use. No recent new medications. Allergies Allergy/AdvReac Type Severity Reaction Status Date / Time No Known Allergies Allergy Verified 09/21/22 14:46 Home Medications Medication Instructions Recorded Confirmed Type amitriptyline 25 mg tablet 25 mg PO HS 09/21/22 09/21/22 History carvedilol 12.5 mg tablet 12.5 mg PO BID 09/21/22 09/21/22 History colestipol 1 gram tablet 2 g PO AMHS 09/21/22 09/21/22 History cyanocobalamin (vitamin B-12) 1,000 mcg PO DAILY 09/21/22 09/21/22 History 1,000 mcg tablet (Vitamin B-12) docusate sodium 100 mg capsule 100 mg PO BID PRN Constipation 09/21/22 09/21/22 History ergocalciferol (vitamin D2) 1,250 1,250 mcg PO WE 09/21/22 09/21/22 History mcg (50,000 unit) capsule ferrous sulfate 325 mg (65 mg 325 mg PO DAILY 09/21/22 09/21/22 History iron) tablet (iron) furosemide 20 mg tablet (Lasix) 60 mg PO DAILY PRN .> swelling, wt 09/21/22 09/21/22 History gain gabapentin 100 mg capsule 100 mg PO TID 09/21/22 09/21/22 History levothyroxine 112 mcg tablet 112 mcg PO DAILY 09/21/22 09/21/22 History lorazepam 0.5 mg tablet 0.5 mg PO TID PRN Anxiety 09/21/22 09/21/22 History oxycodone 5 mg tablet 5 mg PO Q4 PRN Severe Pain (Scale 09/21/22 09/21/22 History Score 7-10) pantoprazole 40 mg tablet,delayed 40 mg PO BID 09/21/22 09/21/22 History release pramipexole 0.25 mg tablet 0.25 mg PO .QAFTERNOON 09/21/22 09/21/22 History pramipexole 0.25 mg tablet 0.5 mg PO HS 09/21/22 09/21/22 History warfarin 5 mg tablet 2.5 mg PO MOWEFRSA@1600 09/21/22 09/21/22 History warfarin 5 mg tablet 5 mg PO SUTUTH@1600 09/21/22 09/21/22 History Patient History Medical History Acute kidney injury superimposed on CKD Anemia resolved per pt, blood transfusions "many yrs ago" unknown cause per pt; mild asymptomatic per nephrology 08/2021 note Anemia of chronic disease Cardiorenal syndrome with renal failure Chronic anticoagulation PE and long time warfarin CKD (chronic kidney disease), stage III Contusion Depression controlled, stable per pt JOSE (generalized anxiety disorder) controlled, stable per pt Heart failure HTN (hypertension) controlled, stable per pt Hyperkalemia Hyperkalemia Hypothyroidism IBS (irritable bowel syndrome) NIKKI (obstructive sleep apnea) Intolerant to CPAP-no current treatment NIKKI (obstructive sleep apnea) Peripheral neuropathy feet, uses rolling walker consistently Pulmonary embolism on warfarin, follows with anticoagulation clinic Venous insufficiency Vitamin D deficiency Surgical History History of bilateral knee replacement History of cataract extraction right and left History of hysterectomy History of open reduction and internal fixation (ORIF) procedure right foot History of spinal fusion Hx of total shoulder replacement right and left Left reverse TSA 02/01/2018: LMA#4 + PNB. No issues per anesthesia progress note. S/P cardiac cath "2002 - normal coronaries" S/P cholecystectomy S/P left knee arthroscopy Family History Father Pulmonary embolism, Onset Age: 69 Stroke Mother , 93 Arthritis Hypertension Sister Breast cancer Social History Smoking Status: Never smoker Second Hand Exposure: No; Hx Alcohol Use: No Hx Substance Use: No Preferred Language: Macedonian Communication Ability: Effective Visual Impairment: Limited Hearing Ability: Hard of Hearing Audio Visual Director Required: No Beliefs That Will Affect Care: None marital status: / Current Living Situation: Alone current occupational status: retired How many Children do You have: 2 How many Children do You have Comment: neither son is local, pt stated she has two sister in laws that assist with care as needed. She also has a niece that assists her frequently. Feels Safe at Home: Yes Safety Concerns: Feels Safe At This Time during the past year weight has: remained stable Assistive Devices: Oxygen - at Night and Walker Review of Systems Review of Systems: All systems reviewed & are unremarkable except as noted in HPI & below Physical Exam Constitutional: well developed; no acute distress Eyes: no scleral abnormality and no corneal abnormality ENMT: Mouth: no oral mucosal abnormality and oral mucous membranes not dry Neck: normal visual inspection and trachea midline Respiratory: normal respiratory effort Auscultation: lungs clear to auscultation bilaterally and + rales Cardiovascular: Rate/Rhythm: regular rate Heart Sounds: normal S1 and normal S2 Extremities: + edema Musculoskeletal: Extremities: no cyanosis and no clubbing Skin: + turgor decreased; no lesions Neurologic: Motor/Sensory: no tremor and no asterixis Psychiatric: Orientation: alert and oriented x 3 Results & Data ([facility]) Vital Signs (Past 12 Hours) Vital Signs Temp Pulse Pulse Resp BP BP Pulse Ox 09/21/22 14:39 09/21/22 14:39 36.5 C 80 20 165/99 H 98 09/21/22 13:40 98 09/21/22 13:34 78 20 156/86 H 98 09/21/22 11:15 104 H 38 H 98 09/21/22 11:18 09/21/22 11:18 36.8 C 91 H 30 H 159/109 H 98 O2 Del Method O2 Flow Rate FiO2 09/21/22 14:39 Nasal Cannula 2 09/21/22 14:39 Room Air 09/21/22 13:40 Nasal Cannula, BiPAP 40 09/21/22 13:34 BiPAP 09/21/22 11:15 40 09/21/22 11:18 BiPAP 09/21/22 11:18 CPAP Laboratory Results Laboratory Results - last 24 hr 09/21/22 09/21/22 09/21/22 11:18 11:18 11:18 WBC 4.63 L RBC 4.20 Hgb 12.6 Hct 39.1 MCV 93.1 MCH 30.0 MCHC 32.2 RDW Std Deviation 55.6 H RDW Coeff of Bertha 16.4 H Plt Count 149 MPV 11.7 Immature Gran % (Auto) 0.2 Neut % (Auto) 74.5 Lymph % (Auto) 16.2 [place] % (Auto) 6.7 Eos % (Auto) 2.2 Baso % (Auto) 0.2 Neut # (Auto) 3.45 Lymph # (Auto) 0.75 L [place] # (Auto) 0.31 Eos # (Auto) 0.10 Baso # (Auto) 0.01 Immature Gran # (Auto) 0.01 PT 18.7 H INR 1.8 H Sodium 140 Potassium 4.1 Chloride 107 Carbon Dioxide 26 Anion Gap 7 BUN 18 Creatinine 0.91 Est Cr Clr Drug Dosing 59.4 Est GFR ( Amer) 69.5 Est GFR (Non-Af Amer) 60.0 BUN/Creatinine Ratio 19.8 Glucose 146 H Lactate Calcium 9.4 Phosphorus 3.4 Magnesium 1.7 Total Bilirubin 0.5 AST 13 ALT 9 Alkaline Phosphatase 174 H Troponin I High Sens 16.4 H D B-Natriuretic Peptide Total Protein 6.6 Albumin 3.9 Globulin 2.7 Albumin/Globulin Ratio 1.4 Lipase 27 Procalcitonin SARS-CoV-2 (PCR) Influenza Type A (PCR) Influenza Type B (PCR) RSV (RT-PCR) 09/21/22 09/21/22 09/21/22 11:18 11:18 11:18 WBC RBC Hgb Hct MCV MCH MCHC RDW Std Deviation RDW Coeff of Bertha Plt Count MPV Immature Gran % (Auto) Neut % (Auto) Lymph % (Auto) [place] % (Auto) Eos % (Auto) Baso % (Auto) Neut # (Auto) Lymph # (Auto) [place] # (Auto) Eos # (Auto) Baso # (Auto) Immature Gran # (Auto) PT INR Sodium Potassium Chloride Carbon Dioxide Anion Gap BUN Creatinine Est Cr Clr Drug Dosing Est GFR ( Amer) Est GFR (Non-Af Amer) BUN/Creatinine Ratio Glucose Lactate 1.1 Calcium Phosphorus Magnesium Total Bilirubin AST ALT Alkaline Phosphatase Troponin I High Sens B-Natriuretic Peptide 581 H Total Protein Albumin Globulin Albumin/Globulin Ratio Lipase Procalcitonin < 0.05 SARS-CoV-2 (PCR) Influenza Type A (PCR) Influenza Type B (PCR) RSV (RT-PCR) 09/21/22 09/21/22 11:18 17:18 WBC RBC Hgb Hct MCV MCH MCHC RDW Std Deviation RDW Coeff of Bertha Plt Count MPV Immature Gran % (Auto) Neut % (Auto) Lymph % (Auto) [place] % (Auto) Eos % (Auto) Baso % (Auto) Neut # (Auto) Lymph # (Auto) [place] # (Auto) Eos # (Auto) Baso # (Auto) Immature Gran # (Auto) PT INR Sodium Potassium Chloride Carbon Dioxide Anion Gap BUN Creatinine Est Cr Clr Drug Dosing Est GFR ( Amer) Est GFR (Non-Af Amer) BUN/Creatinine Ratio Glucose Lactate Calcium Phosphorus Magnesium Total Bilirubin AST ALT Alkaline Phosphatase Troponin I High Sens Pending B-Natriuretic Peptide Total Protein Albumin Globulin Albumin/Globulin Ratio Lipase Procalcitonin SARS-CoV-2 (PCR) NEGATIVE Influenza Type A (PCR) Negative Influenza Type B (PCR) Negative RSV (RT-PCR) Negative Diagnostic Findings XR chest 1V portable FINDINGS: Bilateral shoulder arthroplasties are incidentally noted. There is no pneumothorax. Suspected small left and trace right pleural effusions are noted. Pronounced interstitial thickening has developed. Cardiomegaly is noted. IMPRESSION: 1. Pronounced interstitial thickening consistent with interstitial pulmonary edema. 2. Suspected small left and trace right pleural effusions. PG Care Time/CCT Total # of Minutes Spent Total Time Spent with Patient: Total time spent is greater than 50% in coordination of care (as documented) at patient's floor/unit and/or counseling patient: Coding Level of Care Code 73695 Inpt Consult Level 4 Diagnoses Hypertensive emergency I16.1 Acute respiratory failure with hypoxia J96.01 Flash pulmonary edema J81.0 Anemia of chronic disease D63.8 CKD (chronic kidney disease), stage III N18.3 Anemia D64.9
[2022-09-21 18:44] LABS: Appearance Urine Clear (Clear); Bacteria Urine Automated 2+ (Negative); Bilirubin Urine Negative (Negative); Blood Urine Trace (Negative); Cast Urine Automated 0 /lpf (0-5); Color Urine Yellow; Glucose Urine UA Negative (Negative); Ketones Urine Negative (Negative); Leukocyte Esterase Urine 1+ (Negative); Nitrite Urine Negative (Negative); Protein Urine Negative (Negative); RBC Urine Automated 0-4 /hpf (0-4); Specific Gravity Urine 1.007 (1.000-1.030); Urobilinogen Urine Negative (Negative)
[2022-09-21] MEDS: oxyCODONE HCL IR 5 MG TAB (IMMEDIATE RELEASE) PO PRN (19:22)
[2022-09-21] MEDS: PANTOprazole 40 MG TAB PO SCH (20:10)
[2022-09-21] MEDS: PHENAZOPYRIDINE HCL 100 MG TAB PO SCH (20:10)
[2022-09-21] MEDS: GABAPENTIN 100 MG CAP PO SCH (20:12)
[2022-09-21] MEDS: carvediloL 12.5 MG TAB PO SCH (20:13)
[2022-09-21] MEDS: PRAMIPEXOLE DIHYDROCHLO 0.5 MG TAB PO SCH (20:13)
[2022-09-21] MEDS: AMITRIPTYLINE HCL 25 MG TAB PO SCH (20:15)
[2022-09-21] MEDS: COLESTIPOL HCL 1 GM TAB PO SCH (20:21)
[2022-09-21] MEDS ORDERED: cephALEXin 500 MG CAP PO SCH (21:00)
[2022-09-22 08:17] LABS: Hematocrit (blood only) 34.6 % (34.1-44.9); Hemoglobin 10.9 g/dl (12.0-16.0); Mean Corpuscular Hemoglobin 29.6 pg (25.0-34.0); Mean Corpuscular Hgb Conc 31.5 g/dL (32.0-36.0); Mean Platelet Volume 10.8 fL (9.4-12.3); Platelet Count 123 K/uL (130-400); RDW Coefficient of Variation 16.2 % (11.5-14.5); RDW Standard Deviation 55.2 fL (36.4-46.3); Red Blood Count 3.68 M/uL (3.93-5.22); White Blood Count 3.98 K/ul (4.8-10.8)
[2022-09-22 08:20] LABS: INR 1.9 (0.9-1.1); Prothrombin Time 19.8 Seconds (9.0-12.0)
[2022-09-22] MEDS ORDERED: NITROGLYCERIN SL 0.4 MG/TAB TAB SL PRN (08:21)
[2022-09-22] MEDS: FERROUS SULFATE 325 MG TAB PO SCH (08:28)
[2022-09-22] MEDS: CYANOCOBALAMIN (B-12) 500 MCG TABLET PO SCH (08:28)
[2022-09-22] MEDS: carvediloL 12.5 MG TAB PO SCH ×2 (08:29→20:17)
[2022-09-22] MEDS: COLESTIPOL HCL 1 GM TAB PO SCH ×2 (08:29→20:19)
[2022-09-22] MEDS: GABAPENTIN 100 MG CAP PO SCH ×3 (08:30→20:20)
[2022-09-22] MEDS: PANTOprazole 40 MG TAB PO SCH ×2 (08:31→20:23)
[2022-09-22] MEDS: PHENAZOPYRIDINE HCL 100 MG TAB PO SCH ×3 (08:31→20:22)
[2022-09-22 08:33] LABS: BUN Creatinine Ratio 18.5 (10-20); Calcium 8.8 mg/dl (8.5-10.1); Creatinine Clr Calc Pharmacy 65.5 ml/min; Est GFR (African American) 80.1 ml/min; Est GFR (Non-African American) 69.1 ml/min; Potassium 3.6 mmol/L (3.5-5.1)
[2022-09-22] MEDS ORDERED: POTASSIUM CHLORIDE CRTAB 20 MEQ TABCR PO STA (08:54)
[2022-09-22] MEDS ORDERED: LEVOTHYROXINE SODIUM 112 MCG TABLET PO SCH (09:00)
[2022-09-22] MEDS ORDERED: ERGOCALCIFEROL 50,000 UNITS 1250 MCG CAP PO SCH (09:00)
[2022-09-22] MEDS ORDERED: FUROSEMIDE 40 MG TAB PO ONE (10:24)
--- NOTE | 2022-09-22 10:32 | Nephrology Progress Note ---
Date of Service September 22, 2022 Assessment & Plan (1) Hypertensive emergency: Plan: BP improved. Renal artery duplex pending. Continue carvedilol as Rx. Diuretics to encourage negative fluid balance. KCl 40 mEq provided this AM. (2) Acute respiratory failure with hypoxia: Plan: Improved. Adequate response to IV furosemide overnight. Restarted PO furosemide 40 mg this AM. Etiology not entirely clear. Low sodium diet. Strict I/O's. Continue diuretics to maintain negative fluid balance. Daily weights. Consult with [facility] heart failure program prior to discharge. (3) Flash pulmonary edema: Plan: Duplex pending. (4) CKD (chronic kidney disease), stage III: Plan: Baseline creatinine ~1.0-1.3 mg/dL. Kidneys with symmetric atrophy on imaging. Followed by Dr. Milian as outpatient. (5) Anemia: Plan: Asuncion received Venofer during recent admission in July. Hgb has notably improved. Chronic anemia has been disproportionate to the degree of CKD and not fully explained. Admission and Anticipated Discharge Date Admission Date: September 21, 2022 Subjective No acute events overnight. Episode of reproducible chest pain this AM. No palpitations. Denies dyspnea. Some persistent weakness. No fevers or chills. Review of Systems Review of Systems: All systems reviewed & are unremarkable except as noted in HPI & below Physical Exam Constitutional: well developed; no acute distress Eyes: no scleral abnormality and no corneal abnormality ENMT: Mouth: no oral mucosal abnormality and oral mucous membranes not dry Neck: normal visual inspection and trachea midline Respiratory: normal respiratory effort Auscultation: lungs clear to auscultation bilaterally and + rales Cardiovascular: Rate/Rhythm: regular rate Heart Sounds: normal S1 and normal S2 Extremities: + edema Musculoskeletal: Extremities: no cyanosis and no clubbing Skin: + turgor decreased; no lesions Neurologic: Motor/Sensory: no tremor and no asterixis Psychiatric: Orientation: alert and oriented x 3 Results & Data ([facility]) Vital Signs (Past 12 Hours) Vital Signs Temp Pulse Resp BP Pulse Ox O2 Del Method O2 Flow Rate 09/22/22 08:15 36.6 C 78 16 133/80 96 Nasal Cannula 2 09/22/22 07:57 36.6 C 79 18 154/90 H 97 Nasal Cannula 2.0 09/22/22 03:04 36.5 C 80 18 142/89 H 96 Nasal Cannula 2 09/21/22 22:55 36.5 C 78 18 150/90 H 97 Nasal Cannula 3 Laboratory Results Laboratory Results - last 24 hr 09/21/22 09/21/22 09/21/22 11:18 11:18 11:18 WBC 4.63 L RBC 4.20 Hgb 12.6 Hct 39.1 MCV 93.1 MCH 30.0 MCHC 32.2 RDW Std Deviation 55.6 H RDW Coeff of Bertha 16.4 H Plt Count 149 MPV 11.7 Immature Gran % (Auto) 0.2 Neut % (Auto) 74.5 Lymph % (Auto) 16.2 [place] % (Auto) 6.7 Eos % (Auto) 2.2 Baso % (Auto) 0.2 Neut # (Auto) 3.45 Lymph # (Auto) 0.75 L [place] # (Auto) 0.31 Eos # (Auto) 0.10 Baso # (Auto) 0.01 Immature Gran # (Auto) 0.01 PT 18.7 H INR 1.8 H Sodium 140 Potassium 4.1 Chloride 107 Carbon Dioxide 26 Anion Gap 7 BUN 18 Creatinine 0.91 Est Cr Clr Drug Dosing 59.4 Est GFR ( Amer) 69.5 Est GFR (Non-Af Amer) 60.0 BUN/Creatinine Ratio 19.8 Glucose 146 H Lactate Calcium 9.4 Phosphorus 3.4 Magnesium 1.7 Total Bilirubin 0.5 AST 13 ALT 9 Alkaline Phosphatase 174 H Troponin I High Sens 16.4 H D B-Natriuretic Peptide Total Protein 6.6 Albumin 3.9 Globulin 2.7 Albumin/Globulin Ratio 1.4 Lipase 27 Procalcitonin Urine Color Urine Appearance Urine pH Ur Specific [place] Urine Protein Urine Glucose (UA) Urine Ketones Urine Blood Urine Nitrite Urine Bilirubin Urine Urobilinogen Ur Leukocyte Esterase Urine WBC (Auto) Urine RBC (Auto) U Hyaline Cast (Auto) U Epithel Cells (Auto) Urine Bacteria (Auto) SARS-CoV-2 (PCR) Influenza Type A (PCR) Influenza Type B (PCR) RSV (RT-PCR) 09/21/22 09/21/22 09/21/22 11:18 11:18 11:18 WBC RBC Hgb Hct MCV MCH MCHC RDW Std Deviation RDW Coeff of Bertha Plt Count MPV Immature Gran % (Auto) Neut % (Auto) Lymph % (Auto) [place] % (Auto) Eos % (Auto) Baso % (Auto) Neut # (Auto) Lymph # (Auto) [place] # (Auto) Eos # (Auto) Baso # (Auto) Immature Gran # (Auto) PT INR Sodium Potassium Chloride Carbon Dioxide Anion Gap BUN Creatinine Est Cr Clr Drug Dosing Est GFR ( Amer) Est GFR (Non-Af Amer) BUN/Creatinine Ratio Glucose Lactate 1.1 Calcium Phosphorus Magnesium Total Bilirubin AST ALT Alkaline Phosphatase Troponin I High Sens B-Natriuretic Peptide 581 H Total Protein Albumin Globulin Albumin/Globulin Ratio Lipase Procalcitonin < 0.05 Urine Color Urine Appearance Urine pH Ur Specific [place] Urine Protein Urine Glucose (UA) Urine Ketones Urine Blood Urine Nitrite Urine Bilirubin Urine Urobilinogen Ur Leukocyte Esterase Urine WBC (Auto) Urine RBC (Auto) U Hyaline Cast (Auto) U Epithel Cells (Auto) Urine Bacteria (Auto) SARS-CoV-2 (PCR) Influenza Type A (PCR) Influenza Type B (PCR) RSV (RT-PCR) 09/21/22 09/21/22 09/21/22 11:18 17:18 18:16 WBC RBC Hgb Hct MCV MCH MCHC RDW Std Deviation RDW Coeff of Bertha Plt Count MPV Immature Gran % (Auto) Neut % (Auto) Lymph % (Auto) [place] % (Auto) Eos % (Auto) Baso % (Auto) Neut # (Auto) Lymph # (Auto) [place] # (Auto) Eos # (Auto) Baso # (Auto) Immature Gran # (Auto) PT INR Sodium Potassium Chloride Carbon Dioxide Anion Gap BUN Creatinine Est Cr Clr Drug Dosing Est GFR ( Amer) Est GFR (Non-Af Amer) BUN/Creatinine Ratio Glucose Lactate Calcium Phosphorus Magnesium Total Bilirubin AST ALT Alkaline Phosphatase Troponin I High Sens 99.7 H* D B-Natriuretic Peptide Total Protein Albumin Globulin Albumin/Globulin Ratio Lipase Procalcitonin Urine Color Yellow Urine Appearance Clear Urine pH 5.0 Ur Specific [place] 1.007 Urine Protein Negative Urine Glucose (UA) Negative Urine Ketones Negative Urine Blood Trace H Urine Nitrite Negative Urine Bilirubin Negative Urine Urobilinogen Negative Ur Leukocyte Esterase 1+ H Urine WBC (Auto) 10-30 H Urine RBC (Auto) 0-4 U Hyaline Cast (Auto) 0 U Epithel Cells (Auto) 10-20 H Urine Bacteria (Auto) 2+ H SARS-CoV-2 (PCR) NEGATIVE Influenza Type A (PCR) Negative Influenza Type B (PCR) Negative RSV (RT-PCR) Negative 09/21/22 09/22/22 09/22/22 23:27 07:46 07:46 WBC 3.98 L RBC 3.68 L Hgb 10.9 L Hct 34.6 MCV 94.0 MCH 29.6 MCHC 31.5 L RDW Std Deviation 55.2 H RDW Coeff of Bertha 16.2 H Plt Count 123 L MPV 10.8 Immature Gran % (Auto) Neut % (Auto) Lymph % (Auto) [place] % (Auto) Eos % (Auto) Baso % (Auto) Neut # (Auto) Lymph # (Auto) [place] # (Auto) Eos # (Auto) Baso # (Auto) Immature Gran # (Auto) PT INR Sodium 139 Potassium 3.6 Chloride 104 Carbon Dioxide 30 Anion Gap 5 BUN 15 Creatinine 0.81 Est Cr Clr Drug Dosing 65.5 Est GFR ( Amer) 80.1 Est GFR (Non-Af Amer) 69.1 BUN/Creatinine Ratio 18.5 Glucose 124 H Lactate Calcium 8.8 Phosphorus Magnesium Total Bilirubin AST ALT Alkaline Phosphatase Troponin I High Sens 192.2 H* D B-Natriuretic Peptide Total Protein Albumin Globulin Albumin/Globulin Ratio Lipase Procalcitonin Urine Color Urine Appearance Urine pH Ur Specific [place] Urine Protein Urine Glucose (UA) Urine Ketones Urine Blood Urine Nitrite Urine Bilirubin Urine Urobilinogen Ur Leukocyte Esterase Urine WBC (Auto) Urine RBC (Auto) U Hyaline Cast (Auto) U Epithel Cells (Auto) Urine Bacteria (Auto) SARS-CoV-2 (PCR) Influenza Type A (PCR) Influenza Type B (PCR) RSV (RT-PCR) 09/22/22 07:46 WBC RBC Hgb Hct MCV MCH MCHC RDW Std Deviation RDW Coeff of Bertha Plt Count MPV Immature Gran % (Auto) Neut % (Auto) Lymph % (Auto) [place] % (Auto) Eos % (Auto) Baso % (Auto) Neut # (Auto) Lymph # (Auto) [place] # (Auto) Eos # (Auto) Baso # (Auto) Immature Gran # (Auto) PT 19.8 H INR 1.9 H Sodium Potassium Chloride Carbon Dioxide Anion Gap BUN Creatinine Est Cr Clr Drug Dosing Est GFR ( Amer) Est GFR (Non-Af Amer) BUN/Creatinine Ratio Glucose Lactate Calcium Phosphorus Magnesium Total Bilirubin AST ALT Alkaline Phosphatase Troponin I High Sens B-Natriuretic Peptide Total Protein Albumin Globulin Albumin/Globulin Ratio Lipase Procalcitonin Urine Color Urine Appearance Urine pH Ur Specific [place] Urine Protein Urine Glucose (UA) Urine Ketones Urine Blood Urine Nitrite Urine Bilirubin Urine Urobilinogen Ur Leukocyte Esterase Urine WBC (Auto) Urine RBC (Auto) U Hyaline Cast (Auto) U Epithel Cells (Auto) Urine Bacteria (Auto) SARS-CoV-2 (PCR) Influenza Type A (PCR) Influenza Type B (PCR) RSV (RT-PCR) PG Care Time/CCT Total # of Minutes Spent Total Time Spent with Patient: Total time spent is greater than 50% in coordination of care (as documented) at patient's floor/unit and/or counseling patient: Coding Level of Care Code 87494 Subseq Hosp Care Lvl 3 Diagnoses Hypertensive emergency I16.1 Acute respiratory failure with hypoxia J96.01 Flash pulmonary edema J81.0 CKD (chronic kidney disease), stage III N18.3 Anemia D64.9
--- NOTE | 2022-09-22 10:44 | Ultrasound Report ---
US duplex renal artery CLINICAL HISTORY: JULISSA, accelerated HTN TECHNIQUE: Real-time grayscale and color and spectral Doppler ultrasound imaging of the kidneys was p erformed. Comparison: None available at the time of this dictation. FINDINGS: Exam is limited by patient tolerance. Right kidney measures 8.5 cm. Left kidney measures 8.5 cm. RIGHT: Normal echogenicity with preserved corticomedullary differentiation. Normal cortical thickness. Promi nent collecting system is seen without evidence of hydronephrosis. No convincing evidence of calculus or mass. Spectral analysis: Intrarenal resistive indices measure up to 0.68. Waveforms are normal in appearance.. Renal artery pa tent although only the distal artery was visualized, peak systolic velocity 65.8 cm/s. Renal vein pat ent. LEFT: Normal echogenicity with preserved corticomedullary differentiation. Normal cortical thickness. Promi nent collecting system is seen without evidence of hydronephrosis. No convincing evidence of calculus or mass. Spectral analysis: Intrarenal resistive indices range up to 0.65. Waveforms are normal in appearance. Renal artery paten t with peak systolic velocity 80.5 cm/s proximally, 78.5 cm/s in the midportion, and 31.3 cm/s distal ly. Renal vein patent. Abdominal aorta: Patent. Peak systolic velocity 169 cm/s. Bladder: Normal. Bilateral ureteral jets present. Reference ranges: Normal main renal artery peak systolic velocity less than 180 cm/s. Ratio of renal artery PSV to aort ic PSV less than 3.5 equates to normal or less than 60% stenosis. Only one of the two criteria listed needs to be met for diagnosis. IMPRESSION: 1. Limited exam, however no evidence of renal artery stenosis is seen. 2. Prominence of the bilateral collecting system without evidence of hydronephrosis. ACT 112: Negative or not required by law. Electronically signed by: Andres Lim M.D. 09/22/2022 10:42 AM
--- NOTE | 2022-09-22 13:11 | XCELERA ---
[id number]
--- NOTE | 2022-09-22 13:34 | Hospitalist Progress Note ---
Date of Service September 22, 2022 Assessment & Plan (1) Acute respiratory failure with hypoxia: (2) Flash pulmonary edema: (3) Acute heart failure with preserved ejection fraction (HFpEF): (4) Hypertensive emergency: (5) Venous insufficiency: (6) CKD (chronic kidney disease), stage III: (7) Restless leg syndrome: (8) Lymphedema: (9) Chronic anticoagulation: (10) JOSE (generalized anxiety disorder): (11) Morbid obesity with BMI of 50.0-59.9, adult: (12) NIKKI (obstructive sleep apnea): Plan Patient is a 77yr female with H/O HFpEF, HTN, CKD III, history of PE on coumadin, JOSE, venous stasis NIKKI non-compliant with CPAP and other medical issues listed below who presents via EMS in acute respiratory failure in setting of flash pulmonary edema, uncontrolled BP and decompensated HFpEF. Recently had daily diuretics changed to Lasix 60mg PRN on Jul admission due to worsening renal failure - spironolactone and lisinopril have been held since Jul Acute on chronic respiratory failure with hypoxia Acute pulmonary edema Hypertensive emergency Acute diastolic Heart failure Chronic Oxygen dependency: on 2L at bedtime per patient Troponin elevation likely Type II [place] secondary to CHF, Hypertensive Urgency BNP 581 --CXR:Pronounced interstitial thickening consistent with interstitial pulmonary edema. Suspected small left and trace right pleural effusions. --ECHO pending --Received IV Lasix --Restarted PO Lasix Monitor I&Os, daily weights, Volume status, electrolytes Cardiology consulted Saturating well on 2 L supplemental oxygen UTI: Failed outpatient therapy (Completed Keflex course last month) Urine Culture growing gram-negative bacilli Started on Rocephin empirically CKD III Cr 0.91>0.81 Renal Doppler:Limited exam, however no evidence of renal artery stenosis is seen. Prominence of the bilateral collecting system without evidence of hydronephrosis. Monitor renal function Appreciate Nephrology Input Anemia of chronic disease Thrombocytopenia Hemoglobin at baseline Monitor CBC H/O PE on chronic anticoagulation INR 1.9 Continue Coumadin Adjust Coumadin dose as needed JOSE, depression Continue amitriptyline, PRN Ativan Morbid obesity BMI 51.5 NIKKI Intolerant to cpap Continue nocturnal O2 Planned for PFTs/sleep study as outpatient DVT Px: Coumadin Code status: FULL CODE Admission and Anticipated Discharge Date Admission Date: September 21, 2022 Subjective Patient is seen and examined at bedside States having transient left-sided chest pain after having echo this morning Chest pain is only when going to Admits to having known expectorant cough intermittently Dyspnea much improved Also reports having dysuria intermittently No other complaints Review of Systems Review of Systems: All systems reviewed & are unremarkable except as noted in Subjective Physical Exam Physical Exam: Physical Exam: Vitals signs as noted above General Appearance:Morbidly Obese, no apparent distress Head: normocephalic, Atraumatic Eyes: normal inspection, EOMI Neck: supple, Trachea midline Respiratory/Chest: Decreased breath sounds, basal crackles, No accessory muscle use Cardiovascular: S1, S2, + murmur Abdomen/GI:Soft, Non tender, Bowel sounds present Extremities/Musculoskeletal:normal inspection, +LE B/L edema Neurologic/Psych:AAOX3, grossly no focal neurological deficits Skin: normal color, warm Results & Data Results & Data ([facility]) Vital Signs (Past 12 Hours) Vital Signs Temp Pulse Resp BP Pulse Ox O2 Del Method O2 Flow Rate 09/22/22 11:52 36.8 C 79 18 138/83 93 Nasal Cannula 2.0 09/22/22 08:15 36.6 C 78 16 133/80 96 Nasal Cannula 2 09/22/22 07:57 36.6 C 79 18 154/90 H 97 Nasal Cannula 2.0 09/22/22 03:04 36.5 C 80 18 142/89 H 96 Nasal Cannula 2 Laboratory Results Short CBC 09/22/22 Range/Units 07:46 WBC 3.98 L (4.8-10.8) K/ul Hgb 10.9 L (12.0-16.0) g/dl Hct 34.6 (34.1-44.9) % Plt Count 123 L (130-400) K/uL BMP 09/22/22 07:46 Sodium 139 Potassium 3.6 Chloride 104 Carbon Dioxide 30 BUN 15 Creatinine 0.81 Glucose 124 H Calcium 8.8 Urine 09/21/22 Range/Units 18:16 Urine Color Yellow Urine Appearance Clear (Clear) Urine pH 5.0 (4.5-7.5) Ur Specific [place] 1.007 (1.000-1.030) Urine Protein Negative (Negative) Urine Glucose (UA) Negative (Negative)
--- NOTE | 2022-09-22 13:50 | Cardiology Consultation ---
Date of Consultation September 22, 2022 Assessment & Plan (1) Heart failure, chronic, with acute decompensation: Pt is a 77 yo female with PMH of CKD III, HFpEF, HTN, unprovoked PE (currently on warfarin), and NIKKI presenting with increased SOB and chest pain. Decompensated HFpEF - echo showed improved left ventricle wall motion from previous echo 01/2022. EF 50-55% - cardiac cath 01/2022 neg for blockages - pt likely to need daily diuresis- defer diuretic management to nephrology - discussed daily wt and sliding scale diuretics w/ pt HTN - currently managed at home w/ carvedilol 12.5 mg BID - most recent today Venous insufficiency - contributing to chronic leg swelling (2) Acute respiratory failure with hypoxia: (3) Venous insufficiency: (4) CKD (chronic kidney disease), stage III: Supervising Physician Co-Signing Physician Notes Patient seen and examined with Dr. Scherer. Agree with her note, assessment, and plan. She will likely need daily diuretic therapy. Will defer to Nephrology. Reviewed concept of daily weights and sliding-scale diuretics. History of Present Illness Reason for Consultation: decompensated CHF Requesting Physician: Orquidea Moreira PA-C Attending Physician: Chandrakant Bowling MD History of Present Illness Pt is a 77 yo female with PMH of CKD III, HFpEF, HTN, unprovoked PE (currently on warfarin), and NIKKI presenting with increased SOB and chest pain. Pt explains that she has been experiencing increased SOB over the past 1.5-2 weeks. She took 40 mg Lasix at home on Tuesday or Tuesday which helped to relieve her symptoms- she felt well on Tuesday. However, Tuesday morning after her shower she was struggling to breath. She called the cardiology office to get an appt and was on her way to the office (herself driving) when she felt that it was unsafe for her to continue and she pulled off at an EMS station. At the EMS station, she was found to be hypoxic (low 80s) and hypertensive (systolic 230s). She was started on 15L NRB which increased her O2 sat to 89% and she was transitioned to CPAP. In route to the hospital, she was given nitro x3 and aspirin. In the ER, she was found to be in the mid 90s on bipap and her BP had decreased to 150s/100s. She was given 40 mg Lasix IV. Her CXR showed pulmonary edema w/ bilateral small effusions. Her EKG showed 1st degree AV block w/o changes significant for ischemia. Her lab work showed INR of 1.8, initial trop of 16.8 (highest 192.2). Her home carvedilol 12.5 mg BID was continued upon admission. Today, pt explains that "a few months ago" her daily lasix, spironolactone, and lisinopril were stopped d/t worsening kidney function- this was done at her July hospitalization. Since that time, she has been taking the lasix (40 mg or 60 mg) PRN- she says she takes it about twice per week. Her only BP med during this time was been carvedilol. Pt is denying chest pain today and her breathing is much better than yesterday. She is currently on RA w/ O2 saturation in the mid to upper 90s- she uses 3 L O2 at home, mostly at night. Pt had a cardiac cath done in 2002 but she is unsure of the reason. Per pt, no problems were found at that time. She had a repeat cardiac cath done 01/2022 d/t chest pain which also revealed no blockages. However, an echo done at that time revealed an EF of 50-55% and lateral to inferolateral left ventricle hypokinesis. Her echo done on this admission showed improved wall motion w/ stable EF at 50-55%. Allergies Allergy/AdvReac Type Severity Reaction Status Date / Time No Known Allergies Allergy Verified 09/21/22 14:46 Home Medications Medication Instructions Recorded Confirmed Type amitriptyline 25 mg tablet 25 mg PO HS 09/21/22 09/21/22 History carvedilol 12.5 mg tablet 12.5 mg PO BID 09/21/22 09/21/22 History colestipol 1 gram tablet 2 g PO AMHS 09/21/22 09/21/22 History cyanocobalamin (vitamin B-12) 1,000 mcg PO DAILY 09/21/22 09/21/22 History 1,000 mcg tablet (Vitamin B-12) docusate sodium 100 mg capsule 100 mg PO BID PRN Constipation 09/21/22 09/21/22 History ergocalciferol (vitamin D2) 1,250 1,250 mcg PO WE 09/21/22 09/21/22 History mcg (50,000 unit) capsule ferrous sulfate 325 mg (65 mg 325 mg PO DAILY 09/21/22 09/21/22 History iron) tablet (iron) furosemide 20 mg tablet (Lasix) 60 mg PO DAILY PRN .> swelling, wt 09/21/22 09/21/22 History gain gabapentin 100 mg capsule 100 mg PO TID 09/21/22 09/21/22 History levothyroxine 112 mcg tablet 112 mcg PO DAILY 09/21/22 09/21/22 History lorazepam 0.5 mg tablet 0.5 mg PO TID PRN Anxiety 09/21/22 09/21/22 History oxycodone 5 mg tablet 5 mg PO Q4 PRN Severe Pain (Scale 09/21/22 09/21/22 History Score 7-10) pantoprazole 40 mg tablet,delayed 40 mg PO BID 09/21/22 09/21/22 History release pramipexole 0.25 mg tablet 0.25 mg PO .QAFTERNOON 09/21/22 09/21/22 History pramipexole 0.25 mg tablet 0.5 mg PO HS 09/21/22 09/21/22 History warfarin 5 mg tablet 2.5 mg PO MOWEFRSA@1600 09/21/22 09/21/22 History warfarin 5 mg tablet 5 mg PO SUTUTH@1600 09/21/22 09/21/22 History Patient History Medical History Acute kidney injury superimposed on CKD Anemia resolved per pt, blood transfusions "many yrs ago" unknown cause per pt; mild asymptomatic per nephrology 08/2021 note Anemia of chronic disease Cardiorenal syndrome with renal failure Chronic anticoagulation PE and long time warfarin CKD (chronic kidney disease), stage III Contusion Depression controlled, stable per pt JOSE (generalized anxiety disorder) controlled, stable per pt Heart failure HTN (hypertension) controlled, stable per pt Hyperkalemia Hyperkalemia Hypothyroidism IBS (irritable bowel syndrome) NIKKI (obstructive sleep apnea) Intolerant to CPAP-no current treatment NIKKI (obstructive sleep apnea) Peripheral neuropathy feet, uses rolling walker consistently Pulmonary embolism on warfarin, follows with anticoagulation clinic Venous insufficiency Vitamin D deficiency Surgical History History of bilateral knee replacement History of cataract extraction right and left History of hysterectomy History of open reduction and internal fixation (ORIF) procedure right foot History of spinal fusion Hx of total shoulder replacement right and left Left reverse TSA 02/01/2018: LMA#4 + PNB. No issues per anesthesia progress note. S/P cardiac cath "2002 - normal coronaries" S/P cholecystectomy S/P left knee arthroscopy Family History Father Pulmonary embolism, Onset Age: 69 Stroke Mother , 93 Arthritis Hypertension Sister Breast cancer Social History Smoking Status: Never smoker Second Hand Exposure: No; Hx Alcohol Use: No Hx Substance Use: No Preferred Language: Citizen Of [place] Communication Ability: Effective Visual Impairment: Limited Hearing Ability: Hard of Hearing [employer] Required: No Beliefs That Will Affect Care: None marital status: / Current Living Situation: Alone current occupational status: retired How many Children do You have: 2 How many Children do You have Comment: neither son is local, pt stated she has two sister in laws that assist with care as needed. She also has a niece that assists her frequently. Feels Safe at Home: Yes Safety Concerns: Feels Safe At This Time during the past year weight has: remained stable Assistive Devices: Walker Physical Exam Constitutional: NAD. Vitals WNL. O2 saturation mid to upper 90s on RA. Eyes: no conjunctival abnormality Respiratory: CTA bilaterally. No rhonchi, wheezing, or crackles. Non labored breathing. Cardiovascular: Normal S1, S2. S3 heard. No murmur noted. 1+ bilateral, pitting edema from feet to mid calf. Gastrointestinal (Abdomen): Nontender, +BS. No masses noted. Psychiatric: Alert. Mood and affect congruent. Results & Data ([facility]) Vital Signs (Past 12 Hours) Vital Signs Temp Pulse Resp BP Pulse Ox O2 Del Method O2 Flow Rate 09/22/22 11:52 36.8 C 79 18 138/83 93 Nasal Cannula 2.0 09/22/22 08:15 36.6 C 78 16 133/80 96 Nasal Cannula 2 09/22/22 07:57 36.6 C 79 18 154/90 H 97 Nasal Cannula 2.0 09/22/22 03:04 36.5 C 80 18 142/89 H 96 Nasal Cannula 2 PG Care Time/CCT Total # of Minutes Spent Total Time Spent with Patient: Total time spent is greater than 50% in coordination of care (as documented) at patient's floor/unit and/or counseling patient: Coding Level of Care Code 63235 Initial Inpt Care Lvl 3 Diagnoses Heart failure, chronic, with acute decompensation I50.9 Acute respiratory failure with hypoxia J96.01 Venous insufficiency I87.2 CKD (chronic kidney disease), stage III N18.3 Resident Activity Tracking Resident Involvement: Resident Care Provided Care Provided: Adult Hospital Medicine
[2022-09-22] MEDS: cefTRIAXone SODIUM 2,000 MG in DEXTROSE 5% 50 ML IV SCH (14:05)
[2022-09-22] MEDS: WARFARIN SOD 2.5 MG TAB PO SCH (15:11)
[2022-09-22] MEDS: PRAMIPEXOLE DIHYDROCHLO 0.25 MG TAB PO SCH (15:11)
[2022-09-22] MEDS ORDERED: WARFARIN SOD 5 MG TAB PO SCH (16:00)
--- NOTE | 2022-09-22 16:41 | Electrocardiogram Report ---
Test Reason : Blood Pressure : / mmHG Vent. Rate : 081 BPM Atrial Rate : 081 BPM P-R Int : 218 ms QRS Dur : 120 ms QT Int : 432 ms P-R-T Axes : 022 054 006 degrees QTc Int : 501 ms Sinus rhythm with 1st degree A-V block Right bundle branch block Septal infarct (cited on or before 21-SEP-2022) Abnormal ECG When compared with ECG of 21-SEP-2022 11:16, No significant change was found Confirmed by Michael Javier ([id number]) on 09/22/2022 4:40:35 PM Referred By: REFERRED SELF Confirmed By:Michael Javier
--- NOTE | 2022-09-22 16:48 | Electrocardiogram Report ---
Test Reason : Blood Pressure : / mmHG Vent. Rate : 078 BPM Atrial Rate : 078 BPM P-R Int : 214 ms QRS Dur : 136 ms QT Int : 482 ms P-R-T Axes : 050 035 -02 degrees QTc Int : 549 ms Sinus rhythm with 1st degree A-V block with Premature atrial complexes Right bundle branch block Nonspecific T wave abnormality Abnormal ECG When compared with ECG of 21-SEP-2022 20:03, (unconfirmed) Premature atrial complexes are now Present Confirmed by Michael Javier ([id number]) on 09/22/2022 4:48:10 PM Referred By: REFERRED SELF Confirmed By:Michael Javier
[2022-09-22] MEDS: oxyCODONE HCL IR 5 MG TAB (IMMEDIATE RELEASE) PO PRN ×2 (20:16→23:50)
[2022-09-22] MEDS: AMITRIPTYLINE HCL 25 MG TAB PO SCH (20:18)
[2022-09-22] MEDS: PRAMIPEXOLE DIHYDROCHLO 0.5 MG TAB PO SCH (20:21)
[2022-09-23] MEDS: oxyCODONE HCL IR 5 MG TAB (IMMEDIATE RELEASE) PO PRN (04:03)
[2022-09-23] MEDS: LEVOTHYROXINE SODIUM 112 MCG TABLET PO SCH (05:43)
--- NOTE | 2022-09-23 09:34 | Nephrology Progress Note ---
Date of Service September 23, 2022 Assessment & Plan (1) Hypertensive emergency: Plan: BP acceptable. No ENEDINA on duplex. Continue carvedilol as Rx. Diuretics to encourage negative fluid balance. Consider revisiting RAAS blockade if kidney function remains stable during active diuresis. (2) Acute respiratory failure with hypoxia: Plan: Continues to improve. Continue furosemide to encourage net daily negative fluid balance, ~furosemide 40 mg PO daily under the guidance of cardiology. Low sodium diet. Strict I/O's. Continue diuretics to maintain negative fluid balance. Daily weights. (3) CKD (chronic kidney disease), stage III: Plan: Baseline creatinine ~1.0-1.3 mg/dL. Kidneys with symmetric atrophy on imaging. Followed by Dr. Milian as outpatient. (4) Anemia: Plan: Asuncion received Venofer during recent admission in July. Hgb stable. Admission and Anticipated Discharge Date Admission Date: September 21, 2022 Subjective No acute events overnight. Asuncion reports feeling well this AM. She reports some shortness of breath when bending over. She was able to walk to the bathroom this AM without significant dyspnea. Asuncion was seen and evaluated with Barbara Toledo PA-C and Dr. Bowling this AM. Plan of care was reviewed. Review of Systems Review of Systems: All systems reviewed & are unremarkable except as noted in HPI & below Physical Exam Constitutional: well developed; no acute distress Eyes: no scleral abnormality and no corneal abnormality ENMT: Mouth: no oral mucosal abnormality and oral mucous membranes not dry Neck: normal visual inspection and trachea midline Respiratory: normal respiratory effort Auscultation: lungs clear to auscultation bilaterally Cardiovascular: Rate/Rhythm: regular rate Heart Sounds: normal S1 and normal S2 Extremities: + edema Musculoskeletal: Extremities: no cyanosis and no clubbing Skin: + turgor decreased; no lesions Neurologic: Motor/Sensory: no tremor and no asterixis Psychiatric: Insight: good insight Results & Data ([facility]) Vital Signs (Past 12 Hours) Vital Signs Temp Pulse Pulse Resp BP BP Pulse Ox 09/23/22 07:45 36.6 C 78 20 134/79 90 09/23/22 03:16 36.5 C 74 16 117/71 94 09/23/22 00:32 79 09/22/22 22:43 36.5 C 78 18 122/70 90 O2 Del Method O2 Flow Rate 09/23/22 07:45 Room Air 09/23/22 03:16 Nasal Cannula 2 09/23/22 00:32 09/22/22 22:43 Room Air Laboratory Results Pending PG Care Time/CCT Total # of Minutes Spent Total Time Spent with Patient: Total time spent is greater than 50% in coordination of care (as documented) at patient's floor/unit and/or counseling patient: Coding Level of Care Code 98979 Subseq Hosp Care Lvl 3 Diagnoses Hypertensive emergency I16.1 Acute respiratory failure with hypoxia J96.01 CKD (chronic kidney disease), stage III N18.3 Anemia D64.9
[2022-09-23] MEDS: carvediloL 12.5 MG TAB PO SCH ×2 (09:48→20:12)
[2022-09-23] MEDS: COLESTIPOL HCL 1 GM TAB PO SCH ×2 (09:48→20:15)
[2022-09-23] MEDS: CYANOCOBALAMIN (B-12) 500 MCG TABLET PO SCH (09:49)
[2022-09-23] MEDS: FERROUS SULFATE 325 MG TAB PO SCH (09:50)
[2022-09-23] MEDS: FUROSEMIDE 40 MG TAB PO SCH (09:50)
[2022-09-23] MEDS: PANTOprazole 40 MG TAB PO SCH ×2 (09:52→20:14)
[2022-09-23] MEDS: GABAPENTIN 100 MG CAP PO SCH ×3 (09:52→20:15)
[2022-09-23] MEDS: PHENAZOPYRIDINE HCL 100 MG TAB PO SCH ×3 (09:53→20:15)
[2022-09-23 10:17] LABS: Hemoglobin 10.9 g/dl (12.0-16.0); Mean Corpuscular Hemoglobin 29.3 pg (25.0-34.0); Mean Corpuscular Hgb Conc 31.1 g/dL (32.0-36.0); Mean Corpuscular Volume 94.1 fL (80.0-100.0); Mean Platelet Volume 11.4 fL (9.4-12.3); Platelet Count 121 K/uL (130-400); RDW Coefficient of Variation 16.1 % (11.5-14.5); RDW Standard Deviation 54.8 fL (36.4-46.3); Red Blood Count 3.72 M/uL (3.93-5.22); White Blood Count 3.58 K/ul (4.8-10.8)
[2022-09-23 10:25] LABS: INR 2.8 (0.9-1.1); Prothrombin Time 27.8 Seconds (9.0-12.0)
[2022-09-23 10:36] LABS: BUN Creatinine Ratio 17.9 (10-20); Calcium 8.8 mg/dl (8.5-10.1); Creatinine Clr Calc Pharmacy 67.9 ml/min; Est GFR (African American) 83.8 ml/min; Est GFR (Non-African American) 72.3 ml/min; Potassium 3.8 mmol/L (3.5-5.1)
--- NOTE | 2022-09-23 12:29 | Hospitalist Progress Note ---
Date of Service September 23, 2022 Assessment & Plan (1) Acute respiratory failure with hypoxia: (2) Flash pulmonary edema: (3) Acute heart failure with preserved ejection fraction (HFpEF): (4) Hypertensive emergency: (5) Venous insufficiency: (6) CKD (chronic kidney disease), stage III: (7) Restless leg syndrome: (8) Lymphedema: (9) Chronic anticoagulation: (10) JOSE (generalized anxiety disorder): (11) Morbid obesity with BMI of 50.0-59.9, adult: (12) NIKKI (obstructive sleep apnea): Plan Patient is a 77yr female with H/O HFpEF, HTN, CKD III, history of PE on coumadin, JOSE, venous stasis NIKKI non-compliant with CPAP and other medical issues listed below who presents via EMS in acute respiratory failure in setting of flash pulmonary edema, uncontrolled BP and decompensated HFpEF. Recently had daily diuretics changed to Lasix 60mg PRN on Jul admission due to worsening renal failure - spironolactone and lisinopril have been held since Jul Acute on chronic respiratory failure with hypoxia Acute pulmonary edema Hypertensive emergency Acute diastolic Heart failure Chronic Oxygen dependency: on 2L at bedtime per patient Troponin elevation likely Type II [place] secondary to CHF, Hypertensive Urgency BNP 581 --CXR:Pronounced interstitial thickening consistent with interstitial pulmonary edema. Suspected small left and trace right pleural effusions. --ECHO: Showed EF 50 to 55%. --Received IV Lasix --Continue PO Lasix 40 mg daily Monitor I&Os, daily weights, Volume status, electrolytes Appreciate Cardiology/Nephrology Input May need 2 step prior to discharge UTI: Failed outpatient therapy (Completed Keflex course last month) Urine Culture growing E coli Continue Rocephin CKD III Cr 0.91>0.78 Renal Doppler:Limited exam, however no evidence of renal artery stenosis is seen. Prominence of the bilateral collecting system without evidence of hydronephrosis. Monitor renal function Appreciate Nephrology Input Anemia of chronic disease Thrombocytopenia Hemoglobin at baseline Monitor CBC H/O PE on chronic anticoagulation INR 1.9>2.8 Continue Coumadin Adjust Coumadin dose as needed JOSE, depression Continue amitriptyline, PRN Ativan Morbid obesity BMI 51.5 NIKKI Intolerant to cpap Continue nocturnal O2 Planned for PFTs/sleep study as outpatient DVT Px: Coumadin Code status: FULL CODE Admission and Anticipated Discharge Date Admission Date: September 21, 2022 Subjective Patient is seen and examined at bedside Reports minimal cough Dyspnea improving Discussed with nephrology today Denies any chest pain, dizziness, nausea, abdominal pain Saturating low 90s on room air Review of Systems Review of Systems: All systems reviewed & are unremarkable except as noted in Subjective Physical Exam Physical Exam: Physical Exam: Vitals signs as noted above General Appearance:Morbidly Obese, no apparent distress Head: normocephalic, Atraumatic Eyes: normal inspection, EOMI Neck: supple, Trachea midline Respiratory/Chest: Decreased breath sounds, CTA, No accessory muscle use Cardiovascular: S1, S2, + murmur Abdomen/GI:Soft, Non tender, Bowel sounds present Extremities/Musculoskeletal:normal inspection, +LE B/L edema Neurologic/Psych:AAOX3, grossly no focal neurological deficits Skin: normal color, warm Results & Data Results & Data ([facility]) Vital Signs (Past 12 Hours) Vital Signs Temp Pulse Pulse Resp BP BP Pulse Ox 09/23/22 11:21 36.6 C 75 20 143/83 H 90 09/23/22 08:00 75 09/23/22 08:00 09/23/22 09:45 82 134/84 09/23/22 07:45 36.6 C 78 20 134/79 90 09/23/22 03:16 36.5 C 74 16 117/71 94 09/23/22 00:32 79 O2 Del Method O2 Flow Rate 09/23/22 11:21 Room Air 09/23/22 08:00 09/23/22 08:00 Room Air 09/23/22 09:45 09/23/22 07:45 Room Air 09/23/22 03:16 Nasal Cannula 2 09/23/22 00:32 Laboratory Results Short CBC 09/23/22 Range/Units 09:46 WBC 3.58 L (4.8-10.8) K/ul Hgb 10.9 L (12.0-16.0) g/dl Hct 35.0 (34.1-44.9) % Plt Count 121 L (130-400) K/uL BMP 09/23/22 09:46 Sodium 137 Potassium 3.8 Chloride 102 Carbon Dioxide 30 BUN 14 Creatinine 0.78 Glucose 96 Calcium 8.8
--- NOTE | 2022-09-23 12:48 | Cardiology Progress Note ---
Date of Service September 23, 2022 Assessment & Plan (1) Heart failure, chronic, with acute decompensation: Plan: Pt is a 77 yo female with PMH of CKD III, HFpEF, HTN, unprovoked PE (currently on warfarin), and NIKKI presenting with increased SOB and chest pain. Decompensated HFpEF: Appears only slightly hypervolemic on exam today. Pulmonary symptoms improving. Tolerating room air but low 90s at rest. Consider 2step prior to discharge. Still with lower extremity edema, somewhat chronic and likely venous insufficiency. She has responded well to IV diuretics. She has resumed PO Lasix 40 mg daily yesterday. Kidney function and electrolytes stable. Would continue this dose on discharge. Follow up BMP/mag within 7 days. Continue daily standing weights. Strict I&Os. Heart healthy diet. Patient well known to the heart failure program and will anticipate close outpatient follow up. HTN: Improving. Continue current medical therapy. Venous insufficiency - contributing to chronic leg swelling. Continue to encourage elevation and compression. Disposition: Follow up with the heart failure program next week. Will continue to follow during hospitalization. Plan of care discussed with Dr. Hernández and Dr. Bowling this morning. (2) Acute respiratory failure with hypoxia: (3) Venous insufficiency: (4) CKD (chronic kidney disease), stage III: Admission and Anticipated Discharge Date Admission Date: September 21, 2022 Subjective Patient sitting comfortably in the bedside chair this morning. Reports feeling significantly improved from admission. She has been ambulating around her room without worsening dyspnea. She is on room air. She uses O2 at night chronically. Edema noted but improved. She slept well with her head elevated, denies PND. She has responded well to diuretics- net negative 3L for admission. Weight 254 lb on the standing scale today. Previous home dry weight 250 lb. She denies chest pain, palpitations. Physical Exam Physical Exam: General: No acute distress. A&O x 3 HEENT: unremarkable. Neck: No JVD. - HJR Lungs: Normal respiratory effort. Clear to auscultation. No wheezing. No accessory muscle use. Cardiac: regular rhythm, 2/6 apical holosystolic murmur rating to the axilla, no diastolic murmur or gallop. Abdomen: benign. No evidence of umbilical hernia currently. Extremities: Chronic lower extremity edema. 2+ non pitting edema. Compression socks. Neurologic: normal affect, nonfocal. Results & Data ([facility]) Vital Signs (Past 12 Hours) Vital Signs Temp Pulse Pulse Resp BP BP Pulse Ox 09/23/22 11:21 97.9 F 75 20 143/83 H 90 09/23/22 08:00 75 09/23/22 08:00 09/23/22 09:45 82 134/84 09/23/22 07:45 97.9 F 78 20 134/79 90 09/23/22 03:16 97.7 F 74 16 117/71 94 O2 Del Method O2 Flow Rate 09/23/22 11:21 Room Air 09/23/22 08:00 09/23/22 08:00 Room Air 09/23/22 09:45 09/23/22 07:45 Room Air 09/23/22 03:16 Nasal Cannula 2 PG Care Time/CCT Total # of Minutes Spent Total Time Spent with Patient: Total time spent is greater than 50% in coordination of care (as documented) at patient's floor/unit and/or counseling patient: Coding Level of Care Code 06443 Subseq Hosp Care Lvl 3 Diagnoses Heart failure, chronic, with acute decompensation I50.9 Acute respiratory failure with hypoxia J96.01 Venous insufficiency I87.2 CKD (chronic kidney disease), stage III N18.3
[2022-09-23] MEDS: cefTRIAXone SODIUM 2,000 MG in DEXTROSE 5% 50 ML IV SCH (13:56)
[2022-09-23] MEDS: PRAMIPEXOLE DIHYDROCHLO 0.25 MG TAB PO SCH (14:58)
[2022-09-23] MEDS: WARFARIN SOD 2.5 MG TAB PO SCH ×3 (15:03→15:18)
[2022-09-23] MEDS: AMITRIPTYLINE HCL 25 MG TAB PO SCH (20:13)
[2022-09-23] MEDS: PRAMIPEXOLE DIHYDROCHLO 0.5 MG TAB PO SCH (20:14)
[2022-09-24] MEDS: LEVOTHYROXINE SODIUM 112 MCG TABLET PO SCH (05:53)
[2022-09-24 08:27] LABS: INR 2.7 (0.9-1.1); Prothrombin Time 27.6 Seconds (9.0-12.0)
[2022-09-24] MEDS: FUROSEMIDE 40 MG TAB PO SCH (08:37)
[2022-09-24] MEDS: COLESTIPOL HCL 1 GM TAB PO SCH (08:37)
[2022-09-24] MEDS: PHENAZOPYRIDINE HCL 100 MG TAB PO SCH ×2 (08:37→15:52)
[2022-09-24] MEDS: PANTOprazole 40 MG TAB PO SCH (08:38)
[2022-09-24] MEDS: carvediloL 12.5 MG TAB PO SCH (08:38)
[2022-09-24] MEDS: GABAPENTIN 100 MG CAP PO SCH ×2 (08:38→13:22)
[2022-09-24] MEDS: FERROUS SULFATE 325 MG TAB PO SCH (08:39)
[2022-09-24] MEDS: CYANOCOBALAMIN (B-12) 500 MCG TABLET PO SCH (08:39)
[2022-09-24] MEDS ORDERED: cefTRIAXone SODIUM 2,000 MG in DEXTROSE 5% 50 ML IV SCH (09:25)
[2022-09-24 09:43] LABS: BUN Creatinine Ratio 16.2 (10-20); Calcium 8.8 mg/dl (8.5-10.1); Creatinine Clr Calc Pharmacy 71.8 ml/min; Est GFR (African American) 89.3 ml/min; Est GFR (Non-African American) 77.1 ml/min; Magnesium 1.7 mg/dl (1.7-2.4); Potassium 3.9 mmol/L (3.5-5.1)
--- NOTE | 2022-09-24 09:49 | Nephrology Progress Note ---
Date of Service September 24, 2022 Assessment & Plan (1) Acute respiratory failure with hypoxia: Plan: Clinically continues to improve. AM weight up slightly. I/O negative 700 ml. Continue furosemide to encourage net daily negative fluid balance. Asuncion remains on furosemide 40 mg PO daily but it would be reasonable to increase dose. I will defer to cardiology. From a nephrology perspective, discharge home with close outpatient follow up would be acceptable. Low sodium diet. (2) CKD (chronic kidney disease), stage III: Plan: Baseline creatinine ~1.0-1.3 mg/dL. Kidneys with symmetric atrophy on imaging. Followed by Dr. Milian as outpatient. Please arrange follow up with Dr. Milian within 2 weeks of discharge. Check a metabolic profile within 1 week of discharge. (3) Anemia: Plan: Asuncion received Venofer during recent admission in July. Hgb stable. Admission and Anticipated Discharge Date Admission Date: September 21, 2022 Subjective No acute events overnight. Asuncion feels well this AM. She continues to report a persistent dry cough overnight. O2 NC is drying out her nasal mucosa. Supplemental O2 provided overnight while sleeping and Asuncion remained on 2 L this AM. No dyspnea at rest. Asuncion felt well ambulating to the bathroom this AM. Review of Systems Review of Systems: All systems reviewed & are unremarkable except as noted in HPI & below Physical Exam Constitutional: well developed; no acute distress Eyes: no scleral abnormality and no corneal abnormality ENMT: Mouth: no oral mucosal abnormality and oral mucous membranes not dry Neck: normal visual inspection and trachea midline Respiratory: normal respiratory effort Auscultation: lungs clear to auscultation bilaterally and + rales (few at right base) Cardiovascular: Rate/Rhythm: regular rate Heart Sounds: normal S1 and normal S2 Extremities: + edema (improving) Musculoskeletal: Extremities: no cyanosis and no clubbing Skin: + turgor decreased; no lesions Neurologic: Motor/Sensory: no tremor and no asterixis Psychiatric: Orientation: alert and oriented x 3 Insight: good insight Results & Data ([facility]) Vital Signs (Past 12 Hours) Vital Signs Temp Pulse Pulse Resp BP BP Pulse Ox 09/24/22 07:24 36.3 C L 73 17 129/77 95 09/23/22 23:00 74 09/24/22 03:50 36.6 C 77 18 125/75 97 09/23/22 23:14 36.5 C 76 20 118/75 95 O2 Del Method O2 Flow Rate 09/24/22 07:24 Nasal Cannula 2 09/23/22 23:00 09/24/22 03:50 Nasal Cannula 2.5 09/23/22 23:14 Nasal Cannula 2.5 Laboratory Results Laboratory Results - last 24 hr 09/23/22 09/23/22 09/23/22 09:46 09:46 09:46 WBC 3.58 L RBC 3.72 L Hgb 10.9 L Hct 35.0 MCV 94.1 MCH 29.3 MCHC 31.1 L RDW Std Deviation 54.8 H RDW Coeff of Bertha 16.1 H Plt Count 121 L MPV 11.4 PT 27.8 H INR 2.8 H Sodium 137 Potassium 3.8 Chloride 102 Carbon Dioxide 30 Anion Gap 5 BUN 14 Creatinine 0.78 Est Cr Clr Drug Dosing 67.9 Est GFR ( Amer) 83.8 Est GFR (Non-Af Amer) 72.3 BUN/Creatinine Ratio 17.9 Glucose 96 Calcium 8.8 Magnesium 09/24/22 09/24/22 07:38 07:38 WBC RBC Hgb Hct MCV MCH MCHC RDW Std Deviation RDW Coeff of Bertha Plt Count MPV PT 27.6 H INR 2.7 H Sodium 140 Potassium 3.9 Chloride 105 Carbon Dioxide 30 Anion Gap 5 BUN 12 Creatinine 0.74 Est Cr Clr Drug Dosing 71.8 Est GFR ( Amer) 89.3 Est GFR (Non-Af Amer) 77.1 BUN/Creatinine Ratio 16.2 Glucose 100 H Calcium 8.8 Magnesium 1.7 PG Care Time/CCT Total # of Minutes Spent Total Time Spent with Patient: Total time spent is greater than 50% in coordination of care (as documented) at patient's floor/unit and/or counseling patient: Coding Level of Care Code 68935 Subseq Hosp Care Lvl 3 Diagnoses Acute respiratory failure with hypoxia J96.01 CKD (chronic kidney disease), stage III N18.3 Anemia D64.9
--- NOTE | 2022-09-24 12:49 | Hospitalist Progress Note ---
Date of Service September 24, 2022 Assessment & Plan (1) Acute respiratory failure with hypoxia: (2) Flash pulmonary edema: (3) Acute heart failure with preserved ejection fraction (HFpEF): (4) Hypertensive emergency: (5) Venous insufficiency: (6) CKD (chronic kidney disease), stage III: (7) Restless leg syndrome: (8) Lymphedema: (9) Chronic anticoagulation: (10) JOSE (generalized anxiety disorder): (11) Morbid obesity with BMI of 50.0-59.9, adult: (12) NIKKI (obstructive sleep apnea): Plan Patient is a 77yr female with H/O HFpEF, HTN, CKD III, history of PE on coumadin, JOSE, venous stasis NIKKI non-compliant with CPAP and other medical issues listed below who presents via EMS in acute respiratory failure in setting of flash pulmonary edema, uncontrolled BP and decompensated HFpEF. Recently had daily diuretics changed to Lasix 60mg PRN on Jul admission due to worsening renal failure - spironolactone and lisinopril have been held since Jul Acute on chronic respiratory failure with hypoxia Acute pulmonary edema Hypertensive emergency Acute diastolic Heart failure Chronic Oxygen dependency: on 2L at bedtime per patient Troponin elevation likely Type II NE secondary to CHF, Hypertensive Urgency BNP 581 --CXR:Pronounced interstitial thickening consistent with interstitial pulmonary edema. Suspected small left and trace right pleural effusions. --ECHO: Showed EF 50 to 55%. --Received IV Lasix --Continue PO Lasix 40 mg daily Monitor I&Os, daily weights, Volume status, electrolytes Appreciate Cardiology/Nephrology Input 2 step: Did not qualify for supplemental oxygen Advised to follow-up with cardiology and nephrology upon discharge UTI: Failed outpatient therapy (Completed Keflex course last month) Urine Culture growing E coli Continue Rocephin Plan to transition to p.o. antibiotics upon discharge to complete the course CKD III Cr 0.91>0.74 Renal Doppler:Limited exam, however no evidence of renal artery stenosis is seen. Prominence of the bilateral collecting system without evidence of h ydronephrosis. Monitor renal function Appreciate Nephrology Input Will need BMP in 1 week upon discharge Anemia of chronic disease Thrombocytopenia Hemoglobin at baseline Monitor CBC H/O PE on chronic anticoagulation INR 1.9>2.8>2.7 Continue Coumadin Adjust Coumadin dose as needed JOSE, depression Continue amitriptyline, PRN Ativan Morbid obesity BMI 51.5 NIKKI Intolerant to cpap Continue nocturnal O2 Planned for PFTs/sleep study as outpatient DVT Px: Coumadin Code status: FULL CODE Disposition Refused to rehab, home health Plan to discharge home Admission and Anticipated Discharge Date Admission Date: September 21, 2022 Subjective Patient is seen and examined at bedside Cough continues to improve Denies any dyspnea at rest 2 step did not qualify for oxygen Denies any chest pain, dizziness, nausea, abdominal pain Renal function is stable Had physical therapy evaluation earlier today Patient currently not interested in rehab, home health Review of Systems Review of Systems: All systems reviewed & are unremarkable except as noted in Subjective Physical Exam Physical Exam: Physical Exam: Vitals signs as noted above General Appearance:Morbidly Obese, no apparent distress Head: normocephalic, Atraumatic Eyes: normal inspection, EOMI Neck: supple, Trachea midline Respiratory/Chest: Decreased breath sounds, CTA, No accessory muscle use Cardiovascular: S1, S2, + murmur Abdomen/GI:Soft, Non tender, Bowel sounds present Extremities/Musculoskeletal:normal inspection, +LE B/L edema Neurologic/Psych:AAOX3, grossly no focal neurological deficits Skin: normal color, warm Results & Data Results & Data ([facility]) Vital Signs (Past 12 Hours) Vital Signs Temp Pulse Pulse Pulse Pulse Pulse Resp 09/24/22 11:30 36.7 C 78 18 09/24/22 10:30 103 H 101 H 78 09/24/22 08:00 72 09/24/22 07:24 36.3 C L 73 17 09/24/22 03:50 36.6 C 77 18 Resp Resp Resp BP BP Pulse Ox Pulse Ox 09/24/22 11:30 125/80 90 09/24/22 10:30 20 20 16 93 09/24/22 08:00 09/24/22 07:24 129/77 95 09/24/22 03:50 125/75 97 Pulse Ox Pulse Ox O2 Del Method O2 Flow Rate 09/24/22 11:30 Room Air 09/24/22 10:30 92 94 09/24/22 08:00 09/24/22 07:24 Nasal Cannula 2 09/24/22 03:50 Nasal Cannula 2.5 Laboratory Results BMP 09/24/22 07:38 Sodium 140 Potassium 3.9 Chloride 105 Carbon Dioxide 30 BUN 12 Creatinine 0.74 Glucose 100 H Calcium 8.8
--- NOTE | 2022-09-24 13:00 | Discharge Summary ---
Date of Service September 24, 2022 Admission HPI Per Admitting Provider This is a 77yo F with a PMH of HFpEF, HTN, CKD III, history of PE on coumadin, JOSE, venous stasis NIKKI non-compliant with CPAP and other medical issues listed below who presents via EMS in acute respiratory failure. Patient was admitted to [facility] 07/16-07/18 with acute kidney injury on CKD, hyperkalemia and metabolic acidosis. Lasix, spironolactone and lisinopril were held during admission and time of discharge. Follows with Dr. Milian in clinic who has resumed PRN Lasix 60mg in follow up visits. Spironolactone and lisinopril still held. Patient has been feeling progressively worse over past few weeks but notably better on days after she takes lasix. [place] well enough yesterday to vacuum house and ambulate without issue. However, patient awoke this morning feeling significantly short of breath with chest pressure. Called heart failure clinic to make appointment and was driving when she felt increasing short of breath and had to black puller an EMS station. Was found to be hypoxic in the low 80s with mention of cyanosis and respiratory distress. Systolic blood pressure was in the 230s. Received 3 doses of nitroglycerin and 325 mg aspirin. Transition from nonrebreather to CPAP with gradual improvement in work of breathing. Was transitioned to BiPAP in the ED where she is now saturating at 98%. Patient now endorsing headache. Also has had intermittent dysuria and difficulty urinating over the past week. Denies any fever, chills, lightheadedness, nausea, vomiting, abdominal pain, diarrhea or constipation. Admission Exam Per Admitting Provider Physical Exam Physical Exam: General Appearance:WD/WN, vitals as above, NAD, sitting up in bed wearing bipap mask, alert and oriented, cooperative Head: normocephalic, atraumatic Eyes:normal inspection, PERRL, conjunctivae normal, anicteric sclerae ENT: external ear and nose normal, oropharynx normal Neck: normal visual inspection, trachea midline, no thyromegaly Respiratory:increased respiratory effort but improved on bipap, coarse lung sounds throughout faria with expiratory wheezing. No accessory muscle use Cardiovascular: regular rate, rhythm, no murmur, normal peripheral pulses, lymphedema present. Vessels: + JVD Chest: normal inspection of chest Abdomen/GI: normal bowel sounds, soft, nontender, no hepatosplenomegaly Extremities/Musculoskeletal: no cyanosis or clubbing, extremities motor strength 5/5, venous stasis Neurologic: PERRL, EOMI, accommodation nl, no face palsy, no dysarthria, CN's II-XI intact bilaterally and moves all extremities Psychiatric:A+Ox3, euthymic affect Skin: no rashes, normal color, warm/dry Principal Diagnosis Acute on chronic respiratory failure with hypoxia Acute pulmonary edema Hypertensive emergency Acute diastolic Heart failure Urinary tract infection Discharge Data Allergies Allergy/AdvReac Type Severity Reaction Status Date / Time No Known Allergies Allergy Verified 09/21/22 14:46 Consultations 09/21/22 12:43 ED Decision to Admit Stat 09/21/22 15:20 Consult Cardiology Routine Consult Nephrology Routine Procedures Performed Laboratory Results WBC 3.58 K/ul (4.8-10.8) L 09/23/22 09:46 RBC 3.72 M/uL (3.93-5.22) L 09/23/22 09:46 Hgb 10.9 g/dl (12.0-16.0) L 09/23/22 09:46 Hct 35.0 % (34.1-44.9) 09/23/22 09:46 MCV 94.1 fL (80.0-100.0) 09/23/22 09:46 MCH 29.3 pg (25.0-34.0) 09/23/22 09:46 MCHC 31.1 g/dL (32.0-36.0) L 09/23/22 09:46 RDW Std Deviation 54.8 fL (36.4-46.3) H 09/23/22 09:46 RDW Coeff of Bertha 16.1 % (11.5-14.5) H 09/23/22 09:46 Plt Count 121 K/uL (130-400) L 09/23/22 09:46 MPV 11.4 fL (9.4-12.3) 09/23/22 09:46 Immature Gran % (Auto) 0.2 % 09/21/22 11:18 Neut % (Auto) 74.5 % 09/21/22 11:18 Lymph % (Auto) 16.2 % 09/21/22 11:18 [place] % (Auto) 6.7 % 09/21/22 11:18 Eos % (Auto) 2.2 % 09/21/22 11:18 Baso % (Auto) 0.2 % 09/21/22 11:18 Neut # (Auto) 3.45 K/uL (1.4-6.5) 09/21/22 11:18 Lymph # (Auto) 0.75 K/uL (1.2-3.4) L 09/21/22 11:18 [place] # (Auto) 0.31 K/uL (0.24-0.82) 09/21/22 11:18 Eos # (Auto) 0.10 K/uL (0-0.50) 09/21/22 11:18 Baso # (Auto) 0.01 K/uL (0-0.2) 09/21/22 11:18 Immature Gran # (Auto) 0.01 K/uL (0.00-0.02) 09/21/22 11:18 PT 27.6 Seconds (9.0-12.0) H 09/24/22 07:38 INR 2.7 (0.9-1.1) H 09/24/22 07:38 Sodium 140 mmol/L (136-145) 09/24/22 07:38 Potassium 3.9 mmol/L (3.5-5.1) 09/24/22 07:38 Chloride 105 mmol/L (98-107) 09/24/22 07:38 Carbon Dioxide 30 mmol/L (21-32) 09/24/22 07:38 Anion Gap 5 (3-11) 09/24/22 07:38 BUN 12 mg/dl (6-23) 09/24/22 07:38 Creatinine 0.74 mg/dl (0.6-1.2) 09/24/22 07:38 Est Cr Clr Drug Dosing 71.8 ml/min 09/24/22 07:38 Est GFR ( Amer) 89.3 ml/min 09/24/22 07:38 Est GFR (Non-Af Amer) 77.1 ml/min 09/24/22 07:38 BUN/Creatinine Ratio 16.2 (10-20) 09/24/22 07:38 Glucose 100 mg/dl (70-99(Fasting)) H 09/24/22 07:38 Lactate 1.1 mmol/L (0.4-2.0) 09/21/22 11:18 Calcium 8.8 mg/dl (8.5-10.1) 09/24/22 07:38 Phosphorus 3.4 mg/dl (2.5-4.9) 09/21/22 11:18 Magnesium 1.7 mg/dl (1.7-2.4) 09/24/22 07:38 Total Bilirubin 0.5 mg/dl (0.2-1.0) 09/21/22 11:18 AST 13 U/L (13-39) 09/21/22 11:18 ALT 9 U/L (7-52) 09/21/22 11:18 Alkaline Phosphatase 174 U/L (34-104) H 09/21/22 11:18 Troponin I High Sens 192.2 pg/ml (0-14) H* D 09/21/22 23:27 B-Natriuretic Peptide 581 pg/ml (0-100) H 09/21/22 11:18 Total Protein 6.6 gm/dl (6.0-8.3) 09/21/22 11:18 Albumin 3.9 gm/dl (3.4-5.0) 09/21/22 11:18 Globulin 2.7 gm/dl (2.5-4.0) 09/21/22 11:18 Albumin/Globulin Ratio 1.4 (0.9-2) 09/21/22 11:18 Lipase 27 U/L (11-82) 09/21/22 11:18 Procalcitonin < 0.05 ng/ml (0-0.5) 09/21/22 11:18 Urine Color Yellow 09/21/22 18:16 Urine Appearance Clear (Clear) 09/21/22 18:16 Urine pH 5.0 (4.5-7.5) 09/21/22 18:16 Ur Specific [place] 1.007 (1.000-1.030) 09/21/22 18:16 Urine Protein Negative (Negative) 09/21/22 18:16 Urine Glucose (UA) Negative (Negative) 09/21/22 18:16 Urine Ketones Negative (Negative) 09/21/22 18:16 Urine Blood Trace (Negative) H 09/21/22 18:16 Urine Nitrite Negative (Negative) 09/21/22 18:16 Urine Bilirubin Negative (Negative) 09/21/22 18:16 Urine Urobilinogen Negative (Negative) 09/21/22 18:16 Ur Leukocyte Esterase 1+ (Negative) H 09/21/22 18:16 Urine WBC (Auto) 10-30 /hpf (0-5) H 09/21/22 18:16 Urine RBC (Auto) 0-4 /hpf (0-4) 09/21/22 18:16 U Hyaline Cast (Auto) 0 /lpf (0-5) 09/21/22 18:16 U Epithel Cells (Auto) 10-20 /lpf (0-5) H 09/21/22 18:16 Urine Bacteria (Auto) 2+ (Negative) H 09/21/22 18:16 SARS-CoV-2 (PCR) NEGATIVE (Negative) 09/21/22 11:18 Influenza Type A (PCR) Negative (Neg) 09/21/22 11:18 Influenza Type B (PCR) Negative (Neg) 09/21/22 11:18 RSV (RT-PCR) Negative (Neg) 09/21/22 11:18 Impressions Chest X-Ray 09/21/22 11:13 XR chest 1V portable CLINICAL HISTORY: Atypical chest pain. COMPARISON STUDY: Chest radiograph July 16, 2022. Chest CT July 20, 2022. FINDINGS: Bilateral shoulder arthroplasties are incidentally noted. There is no pneumothorax. Suspected small left and trace right pleural effusions are noted. Pronounced interstitial thickening has developed. Cardiomegaly is noted. IMPRESSION: 1. Pronounced interstitial thickening consistent with interstitial pulmonary edema. 2. Suspected small left and trace right pleural effusions. ACT 112: Negative or not required by law. Electronically signed by: Jim Snyder M.D. 09/21/2022 11:48 AM Renal Artery Duplex 09/21/22 17:36 US duplex renal artery CLINICAL HISTORY: JULISSA, accelerated HTN TECHNIQUE: Real-time grayscale and color and spectral Doppler ultrasound imaging of the kidneys was performed. Comparison: None available at the time of this dictation. FINDINGS: Exam is limited by patient tolerance. Right kidney measures 8.5 cm. Left kidney measures 8.5 cm. RIGHT: Normal echogenicity with preserved corticomedullary differentiation. Normal cortical thickness. Prominent collecting system is seen without evidence of hydronephrosis. No convincing evidence of calculus or mass. Spectral analysis: Intrarenal resistive indices measure up to 0.68. Waveforms are normal in appearance.. Renal artery patent although only the distal artery was visualized, peak systolic velocity 65.8 cm/s. Renal vein patent. LEFT: Normal echogenicity with preserved corticomedullary differentiation. Normal cortical thickness. Prominent collecting system is seen without evidence of hydronephrosis. No convincing evidence of calculus or mass. Spectral analysis: Intrarenal resistive indices range up to 0.65. Waveforms are normal in appearance. Renal artery patent with peak systolic velocity 80.5 cm/s proximally, 78.5 cm/s in the midportion, and 31.3 cm/s distally. Renal vein patent. Abdominal aorta: Patent. Peak systolic velocity 169 cm/s. Bladder: Normal. Bilateral ureteral jets present. Reference ranges: Normal main renal artery peak systolic velocity less than 180 cm/s. Ratio of renal artery PSV to aortic PSV less than 3.5 equates to normal or less than 60% stenosis. Only one of the two criteria listed needs to be met for diagnosis. IMPRESSION: 1. Limited exam, however no evidence of renal artery stenosis is seen. 2. Prominence of the bilateral collecting system without evidence of hydronephrosis. ACT 112: Negative or not required by law. Electronically signed by: Andres Lim M.D. 09/22/2022 10:42 AM Ordered Studies 09/21/22 17:36 US duplex renal artery Routine Hospital Course (1) Acute respiratory failure with hypoxia: (2) Flash pulmonary edema: (3) Acute heart failure with preserved ejection fraction (HFpEF): (4) Hypertensive emergency: (5) Venous insufficiency: (6) CKD (chronic kidney disease), stage III: (7) Restless leg syndrome: (8) Lymphedema: (9) Chronic anticoagulation: (10) JOSE (generalized anxiety disorder): (11) Morbid obesity with BMI of 50.0-59.9, adult: (12) NIKKI (obstructive sleep apnea): Plan Patient is a 77yr female with H/O HFpEF, HTN, CKD III, history of PE on coumadin, JOSE, venous stasis NIKKI non-compliant with CPAP and other medical issues listed below who presents via EMS in acute respiratory failure in setting of flash pulmonary edema, uncontrolled BP and decompensated HFpEF. Recently had daily diuretics changed to Lasix 60mg PRN on Jul admission due to worsening renal failure - spironolactone and lisinopril have been held since Jul Acute on chronic respiratory failure with hypoxia Acute pulmonary edema Hypertensive emergency Acute diastolic Heart failure Chronic Oxygen dependency: on 2L at bedtime per patient Troponin elevation likely Type II [place] secondary to CHF, Hypertensive Urgency BNP 581 --CXR:Pronounced interstitial thickening consistent with interstitial pulmonary edema. Suspected small left and trace right pleural effusions. --ECHO: Showed EF 50 to 55%. --Received IV Lasix --Continue PO Lasix 40 mg daily Monitor I&Os, daily weights, Volume status, electrolytes Appreciate Cardiology/Nephrology Input 2 step: Did not qualify for supplemental oxygen Advised to follow-up with cardiology and nephrology upon discharge UTI: Failed outpatient therapy (Completed Keflex course last month) Urine Culture growing E coli Continue Rocephin Plan to transition to p.o. antibiotics upon discharge to complete the course CKD III Cr 0.91>0.74 Renal Doppler:Limited exam, however no evidence of renal artery stenosis is seen. Prominence of the bilateral collecting system without evidence of hydronephrosis. Monitor renal function Appreciate Nephrology Input Will need BMP in 1 week upon discharge Anemia of chronic disease Thrombocytopenia Hemoglobin at baseline Monitor CBC H/O PE on chronic anticoagulation INR 1.9>2.8>2.7 Continue Coumadin Adjust Coumadin dose as needed JOSE, depression Continue amitriptyline, PRN Ativan Morbid obesity BMI 51.5 NIKKI Intolerant to cpap Continue nocturnal O2 Planned for PFTs/sleep study as outpatient DVT Px: Coumadin Code status: FULL CODE Disposition Refused to rehab, home health Plan to discharge home Total Time Total Time Spent Total Time Spent (In Minutes): 50 minutes Discharge Plan Discharge Items Patient Disposition: Home - Self-Care Reason For Visit: ACUTE DECOMPENSATED HEART FAILURE Discharge Diagnosis: Acute on chronic respiratory failure with hypoxia Acute pulmonary edema Hypertensive emergency Acute diastolic Heart failure Urinary tract infection Activity: Per Instructions section Sexual Activity: Wait until after follow-up appointment Non-emergency contact: Primary Care Provider, Furniture Cr[employer] and Sill Worker Call non-emergency contact if: you have any medication questions, your symptoms worsen, your pain is concerning for you and you have a fever Follow-up/Referrals: Kj Milian MD [Physician] - 10/11/22 11:15 am Barbara Toledo PA-C [Physician Biomathematician] - 09/30/22 10:30 am Tristan Conde MD [Primary Care Provider] - (Date & Time 09/30/2022 11:20 AM Provider Rossy De La Rosa MD [facility] ) Diet: Heart Healthy and Low Sodium (2gm) Add Attending Provider Instructions: Follow-up with your primary care physician, truck driver flatbed and purchasing administrative assistant as scheduled. Follow-up with Coumadin clinic for adjustment of your Coumadin dose based on PT/INR. -- Start taking Lasix 40 mg daily. Further adjustment of and Lasix as per your truck driver flatbed/purchasing administrative assistant. --Get Blood Test(basic metabolic panel) in 1 week and follow-up with your physician. --- Complete antibiotic course cefdinir as prescribed. --- Your final blood cultures are pending at the time of discharge. Follow-up with your physician for results. Seek immediate medical attention if your symptoms reoccur or worsen Please take all medications as instructed on discharge list below. Please call if you have any questions or problems. You can reach a [facility] hospitalist on duty at [facility] 24 hours a day by calling [phone] [facility] [employer] Supplies Salesperson Provider Instructions: Call your Primary Care doctor if any of the following symptoms or problems start or get worse: * Shortness of breath or difficulty breathing * Wake up at night short of breath * Chest pain * Cough * Swelling of your hands, feet, or legs * More fatigued or tired with your normal activity * Palpitations - sudden fast heart beats WEIGHT * Weigh yourself every morning after using the bathroom. * Use the same scale. * Wear the same amount of clothing. * Write your weight down on a chart. * Call your Primary Care doctor if you gain more than 2-3 pounds in 1-2 days. MEDICATIONS * Use this discharge instruction sheet for medication instructions. * Take your medications at the time your doctor ordered. * Do not skip a dose of your medicines. * If you miss a dose of medicine, take it as soon as possible, but DO NOT DOUBLE A DOSE. * Read your medicine information when you get home. * Know all of the side effects of your medicine. If in doubt, ask your pharmacist * Call your Primary Care doctor's office if you have any side effects. * Be sure all of your doctors know what medicine and herbs you take (including cold, flu, and herbal medicine). Take the following with you to your follow-up doctor appointments: * Weight Chart * Medication List * List of questions Do not drink excessive alcohol, beer or wine. Pending Studies at Discharge: Yes Studies:: Blood culture Stand-Alone Forms: [facility] Rumble, Smoking Cessation Medications and DC Order Prescriptions: New furosemide 40 mg Tablet 40 mg PO DAILY Qty: 30 2RF phenazopyridine [Pyridium] 100 mg Tablet 100 mg PO TID PRN (Reason: pain) Qty: 30 0RF cefdinir 300 mg capsule 300 mg PO BID Qty: 8 0RF Rx Instructions: Start taking from 09/25/22 Continued carvedilol 12.5 mg tablet 12.5 mg PO BID cyanocobalamin (vitamin B-12) [Vitamin B-12] 1,000 mcg Tablet 1,000 mcg PO DAILY amitriptyline 25 mg tablet 25 mg PO HS lorazepam 0.5 mg tablet 0.5 mg PO TID PRN (Reason: Anxiety) pantoprazole 40 mg tablet,delayed release (DR/EC) 40 mg PO BID ferrous sulfate [iron] 325 mg (65 mg iron) Tablet 325 mg PO DAILY warfarin 5 mg tablet 5 mg PO SUTUTH@1600 docusate sodium 100 mg Capsule 100 mg PO BID PRN (Reason: Constipation) pramipexole 0.25 mg tablet 0.5 mg PO HS pramipexole 0.25 mg tablet 0.25 mg PO .QAFTERNOON gabapentin 100 mg capsule 100 mg PO TID Rx Instructions: Take 1 cap in AM, 1 cap at NOON, & 1 cap before hs ergocalciferol (vitamin D2) 1,250 mcg (50,000 unit) capsule 1,250 mcg PO WE colestipol 1 gram tablet 2 g PO AMHS levothyroxine 112 mcg tablet 112 mcg PO DAILY oxycodone 5 mg tablet 5 mg PO Q4 PRN (Reason: Severe Pain (Scale Score 7-10)) warfarin 5 mg tablet 2.5 mg PO [id number]@1600 Discontinued furosemide [Lasix] 20 mg tablet 60 mg PO DAILY PRN (Reason: .> swelling, wt gain) Rx Instructions: Do not take for more then 3 days in a row. Discharge Orders: Discharge Order (Routine); Ordered 09/24/22 Ordered By: Chandrakant Bowling Admission Data Admit Date/Time: 09/21/22 13:05 Attending Provider: Chandrakant Bowling Admit Provider: Parul Stein Primary Care Provider: Tristan Conde Other Providers: Parul Stein ; Michael Javier ; Junior Hernández
[2022-09-24] MEDS: oxyCODONE HCL IR 5 MG TAB (IMMEDIATE RELEASE) PO PRN (13:21)
[2022-09-24] MEDS: WARFARIN SOD 2.5 MG TAB PO SCH (15:27)
[2022-09-24] MEDS: PRAMIPEXOLE DIHYDROCHLO 0.25 MG TAB PO SCH (15:27)
== END 2022-09-24 15:50 | disposition home or self-care (01) | DRG 280 ==
LOC: ED 11:09 → SUATTDRO 13:05 → 2S 13:05

== ENCOUNTER 2023-05-02 08:03 | Inpatient (IN) ==
[2023-05-02] MEDS ORDERED: SODIUM CHLORIDE 0.9% 500 ML IV ONE (08:09)
--- NOTE | 2023-05-02 08:24 | Emergency Department Note ---
Impression & Plan C. difficile colitis, Hypomagnesemia, Diverticulitis, Acute dehydration, Generalized weakness ED Provider Note Name: YEE MERIDA Age: 78 Sex: F Arrives Via: Ambulance Informant: Patient ED Provider: Jasvir Lerner MD Chief Complaint: Abdominal pain Impression: As per impressions above Medical Decision Making: Pleasant 78-year-old female who is had a several week course of diarrhea. Outpatient studies had a negative C. difficile a few days ago. Diarrhea has c ontinued and now she is having acute 24 hours of suprapubic pain. She is dehydrated by exam and quite weak requiring help getting to the bathroom with nursing. Abdominal exam does not reveal peritonitis. She did have antibiotics last month for wound infections on the leg. Initial laboratory work-up with low potassium and low mag consistent with her persistent diarrhea. Given her abdominal pain a CT was obtained which does reveal evidence of mild diverticulitis. Furthermore her C. difficile testing did come back positive oxygen as well as PCR. After discussing some with her I think the best course of action really is to hospitalize her for management of this especially given she lives alone and is so weak just getting around in the ER room. She was given Rocephin Flagyl for diverticulitis and p.o. Vanco for the C. difficile. She was given IV magnesium replacement and was also given some IV fluids given how dehydrated she was on examination. Patient does have a CHF history but given the degree of dehydration I think that she did require these fluids and tolerated them well while in the ER. At this point patient is not septic and do not feel that blood cultures are 30 mL/kg IV fluids would be indicated. Prior Medical Record and Triage/Nursing Notes reviewed by Me External chart reviewed by me including outpatient records from [facility] Differentials:Colitis, C. difficile, viral gastroenteritis, ischemic gut, diverticulitis, abscess, appendicitis, obstruction, aortic pathology amongst many other pathologies considered. Vital Signs: reviewed and remarkable for no significant abnormalities Interventions: Normal saline bolus x2, Flagyl IV, Rocephin IV, Vanco p.o., magnesium IV Labs:Reviewed and remarkable for hypomag, hypokalemia Imaging:CT imaging of the abdomen pelvis with IV contrast as per my interpretation reveals mild stranding around the sigmoid colon consistent with diverticulitis no evidence of free air or abscess or obstruction. See radiologist report for full EKG: As per my interpretation. Indication weakness. Normal sinus rhythm at 70 bpm. There is quite poor baseline. There is no ectopy nor overt ischemia. When compared to EKG of September 22, 2022 there is no real significant change is able to be appreciated based on baseline. Of note QTc is 479 Consults:Lili larsenist Plan: Disposition:Hospitalization. Condition: Good History of Present Illness:78-year-old female arrives for evaluation of abdominal pain. Patient notes that she has had about a months worth of diarrhea. It is frequent and comes on quickly. She has had some stool studies by her PCP over the last week or 2 which she does not believe showed anything. She was started on new medicine last week but does not know what it was. She states she had been on antibiotics for about a month prior to developing the diarrhea. Over the last 24 to 48 hours she has had worsening abdominal pain and cramping. Pain is suprapubic in nature radiates to her low back at times. Worse with movement. She has no appetite. Patient called 911 due to the amount of pain after calling her PCP who advised she come to the ER. Prior to arrival patient received 500 mL IV fluids. Past History:See Below Home Medications:See Below Allergies:nkda Vitals:Blood Pressure: 150/92, Pulse 70, RR 16, T 36.6C, O2 99% on RA Physical Exam: GENERAL: Patient is anxious appearing and in mild distress. EYES: No scleral icterus, unremarkable pupils. ENT: Mucous membranes dry, no nasal congestion. NECK: No masses appreciated, nomeningismus, trachea is midline. RESPIRATORY: No dyspnea. Clear to auscultation and equal bilaterally. No wheeze, no rhonchi. CARDIOVASCULAR: Regular rate and rhythm.No murmurs, rubs, gallops appreciated. GASTROINTESTINAL: There is mild/moderate suprapubic tenderness palpation. Otherwise abdomen soft, non-tender, no peritonitis.Bowel sounds positive.No masses appreciated. EXTREMITIES: Normal motion all extremities, no cyanosis, moderate edema bilaterally which patient states is chronic minimal pitting at this time NEUROLOGIC: Alert and oriented, no gross neurologic deficit appreciated SKIN: No rash, no jaundice, no diaphoresis. PSYCH: Appropriate GCS: 15 ED Course: Times/Reassessments: Patient does feel much better after IV fluids and is breathing comfortably without any hypoxia nor respiratory distress Jasvir Lerner MD Past Med/Surg History Medical History (Updated 05/03/23 @ 11:36 by Jasvir Lerner MD) Acute kidney injury superimposed on CKD Anemia resolved per pt, blood transfusions "many yrs ago" unknown cause per pt; mild asymptomatic per nephrology 08/2021 note Anemia of chronic disease Cardiorenal syndrome with renal failure Chronic anticoagulation PE and long time warfarin CKD (chronic kidney disease), stage III Contusion Depression controlled, stable per pt JOSE (generalized anxiety disorder) controlled, stable per pt Heart failure HTN (hypertension) controlled, stable per pt Hyperkalemia Hypothyroidism IBS (irritable bowel syndrome) NIKKI (obstructive sleep apnea) Intolerant to CPAP-no current treatment NIKKI (obstructive sleep apnea) Peripheral neuropathy feet, uses rolling walker consistently Pulmonary embolism on warfarin, follows with anticoagulation clinic Venous insufficiency Vitamin D deficiency Surgical History History of bilateral knee replacement History of cataract extraction right and left History of hysterectomy History of open reduction and internal fixation (ORIF) procedure right foot History of spinal fusion Hx of total shoulder replacement right and left Left reverse TSA 02/01/2018: LMA#4 + PNB. No issues per anesthesia progress note. 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 She also has a niece that assists her frequently. Other Information That Helps Us Care for You: No Feels Safe at Home: Yes Safety Concerns: Feels Safe At This Time during the past year weight has: remained stable Assistive Devices: Glasses and Walker Allergies Allergies Allergy/AdvReac Type Severity Reaction Status Date / Time No Known Allergies Allergy Verified 05/02/23 10:50 Home Meds Home Medications Medication Instructions Recorded Confirmed amitriptyline 25 mg tablet 25 mg PO HS 09/21/22 05/02/23 carvedilol 12.5 mg tablet 12.5 mg PO BID 09/21/22 05/02/23 colestipol 1 gram tablet 2 g PO AMHS 09/21/22 05/02/23 cyanocobalamin (vitamin B-12) 1,000 mcg PO DAILY 09/21/22 05/02/23 1,000 mcg tablet (Vitamin B-12) docusate sodium 100 mg capsule 100 mg PO BID PRN Constipation 09/21/22 05/02/23 ferrous sulfate 325 mg (65 mg 325 mg PO DAILY 09/21/22 05/02/23 iron) tablet (iron) gabapentin 100 mg capsule 100 mg PO TID 09/21/22 05/02/23 lorazepam 0.5 mg tablet 0.5 mg PO TID PRN Anxiety 09/21/22 05/02/23 oxycodone 5 mg tablet 5 mg PO Q4 PRN Severe Pain (Scale 09/21/22 05/02/23 Score 7-10) pantoprazole 40 mg tablet,delayed 40 mg PO BID 09/21/22 05/02/23 release pramipexole 0.25 mg tablet 0.25 mg PO .QAFTERNOON 09/21/22 05/02/23 pramipexole 0.25 mg tablet 0.5 mg PO HS 09/21/22 05/02/23 warfarin 5 mg tablet 2.5 mg PO MOWEFR@1600 09/21/22 05/02/23 warfarin 5 mg tablet 5 mg PO DIRECTED 09/21/22 05/02/23 ergocalciferol (vitamin D2) 1,250 1,250 mcg PO .tuesday10/18/22 05/02/23 mcg (50,000 unit) capsule Saccharomyces boulardii 250 mg 250 mg PO BID 05/02/23 05/02/23 capsule bumetanide 1 mg tablet 2 mg PO BID 05/02/23 05/02/23 clonazepam 1 mg tablet 1 mg PO HS PRN RLS 05/02/23 05/02/23 clotrimazole 1 % vaginal cream 1 applic vaginal HS 05/02/23 05/02/23 diphenoxylate-atropine 2.5 1 tab PO Q6H PRN Diarrhea 05/02/23 05/02/23 mg-0.025 mg tablet levothyroxine 125 mcg tablet 125 mcg PO QAM 05/02/23 05/02/23 Previous Rx's Medication Instructions Recorded potassium chloride 10 mEq 10 meq PO BID #180 tabs 04/05/23 tablet,extended release Results & Data (ED) Laboratory Data 05/03/23 07:10 05/03/23 07:10 Lab Results 05/02/23 05/02/23 05/02/23 Range/Units 08:09 08:09 09:12 WBC 6.86 (4.8-10.8) K/ul RBC 3.78 L (4.20-5.40) M/uL Hgb 11.6 L (12.0-16.0) g/dl Hct 34.1 L (37.0-47.0) % MCV 90.2 (80.0-100.0) fL MCH 30.7 (25.0-34.0) pg MCHC 34.0 (32.0-36.0) g/dL RDW Std Deviation 48.3 H (36.4-46.3) fL RDW Coeff of Bertha 14.8 H (11.5-14.5) % Plt Count 149 (130-400) K/uL MPV 11.9 (9.4-12.4) fL Immature Gran % (Auto) 0.3 % Neut % (Auto) 80.8 % Lymph % (Auto) 10.8 % P[place] % (Auto) 7.1 % Eos % (Auto) 0.9 % Baso % (Auto) 0.1 % Neut # (Auto) 5.54 (1.40-6.50) K/uL Lymph # (Auto) 0.74 L (1.2-3.4) K/uL Pinal # (Auto) 0.49 (0.11-0.59) K/uL Eos # (Auto) 0.06 (0-0.50) K/uL Baso # (Auto) 0.01 (0-0.2) K/uL Immature Gran # (Auto) 0.02 (0.01-0.20) K/uL Sodium 142 (136-145) mmol/L Potassium 2.8 L (3.5-5.1) mmol/L Chloride 106 (98-107) mmol/L Carbon Dioxide 28 (21-32) mmol/L Anion Gap 8 (3-11) BUN 17 (6-23) mg/dl Creatinine 0.85 (0.6-1.2) mg/dl Est Cr Clr Drug Dosing 63.2 ml/min Est GFR ( Amer) 75.0 ml/min Est GFR (Non-Af Amer) 64.7 ml/min BUN/Creatinine Ratio 20.0 (10-20) Glucose 99 (70-99(Fasting)) mg/dl Calcium 9.2 (8.6-10.3) mg/dl Magnesium 1.4 L (1.7-2.4) mg/dl Total Bilirubin 0.5 (0.2-1.0) mg/dl Direct Bilirubin 0.1 (0-0.2) mg/dl AST 18 (13-39) U/L ALT 12 (7-52) U/L Alkaline Phosphatase 137 H (34-104) U/L Troponin I High Sens 15.1 H (0-14) pg/ml Total Protein 6.3 (6.0-8.3) gm/dl Albumin 3.6 (3.4-5.0) gm/dl Lipase 56 (11-82) U/L Urine Color Urine Appearance (Clear) Urine pH (4.5-7.5) Ur Specific [place] (1.000-1.030) Urine Protein (Negative) Urine Glucose (UA) (Negative) Urine Ketones (Negative) Urine Blood (Negative) Urine Nitrite (Negative) Urine Bilirubin (Negative) Urine Urobilinogen (Negative) Ur Leukocyte Esterase (Negative) Urine WBC (Auto) (0-5) /hpf Urine RBC (Auto) (0-4) /hpf U Hyaline Cast (Auto) (0-5) /lpf U Epithel Cells (Auto) (0-5) /lpf Urine Bacteria (Auto) (Negative) Stl C. cayetanensis PCR (NotDetected) Stool Rotavirus A PCR (NotDetected) Stl Adenov F 40/41 PCR (NotDetected) Stool Astrovirus (PCR) (NotDetected) Stool Campylobacter PCR (NotDetected) Stl C. diff Tox B Gene Positive Cdiff Gene H (Neg) Stl C.difficile Tox A&B Positive Cdiff Toxin A* (Negative) Stool Cryptosporidium PCR (NotDetected) Stl E.coli Shiga Tox PCR (NotDetected) Stl Enterotoxigenic E PCR (NotDetected) Stool EPEC (PCR) (NotDetected) Stool EAEC (PCR) (NotDetected) Stl E. histolytica PCR (NotDetected) Stool Giardia Lamblia PCR (NotDetected) Stool Salmonella PCR (NotDetected) Stool Sapovirus (PCR) (NotDetected) Stl P. shigelloides PCR (NotDetected) Stl Shigella/EIEC PCR (NotDetected) St Y.enterocolitica PCR (NotDetected) Stool Vibrio (PCR) (NotDetected) Stl Vibrio cholerae PCR (NotDetected) Stl Norovirus GI/GII PCR (NotDetected) SARS-CoV-2, RNA, NAAT (NEGATIVE) 05/02/23 05/02/23 05/02/23 Range/Units 09:12 09:12 10:25 WBC (4.8-10.8) K/ul RBC (4.20-5.40) M/uL Hgb (12.0-16.0) g/dl Hct (37.0-47.0) % MCV (80.0-100.0) fL MCH (25.0-34.0) pg MCHC (32.0-36.0) g/dL RDW Std Deviation (36.4-46.3) fL RDW Coeff of Bertha (11.5-14.5) % Plt Count (130-400) K/uL MPV (9.4-12.4) fL Immature Gran % (Auto) % Neut % (Auto) % Lymph % (Auto) % Pinal % (Auto) % Eos % (Auto) % Baso % (Auto) % Neut # (Auto) (1.40-6.50) K/uL Lymph # (Auto) (1.2-3.4) K/uL P[place] # (Auto) (0.11-0.59) K/uL Eos # (Auto) (0-0.50) K/uL Baso # (Auto) (0-0.2) K/uL Immature Gran # (Auto) (0.01-0.20) K/uL Sodium (136-145) mmol/L Potassium (3.5-5.1) mmol/L Chloride (98-107) mmol/L Carbon Dioxide (21-32) mmol/L Anion Gap (3-11) BUN (6-23) mg/dl Creatinine (0.6-1.2) mg/dl Est Cr Clr Drug Dosing ml/min Est GFR ( Amer) ml/min Est GFR (Non-Af Amer) ml/min BUN/Creatinine Ratio (10-20) Glucose (70-99(Fasting)) mg/dl Calcium (8.6-10.3) mg/dl Magnesium (1.7-2.4) mg/dl Total Bilirubin (0.2-1.0) mg/dl Direct Bilirubin (0-0.2) mg/dl AST (13-39) U/L ALT (7-52) U/L Alkaline Phosphatase (34-104) U/L Troponin I High Sens (0-14) pg/ml Total Protein (6.0-8.3) gm/dl Albumin (3.4-5.0) gm/dl Lipase (11-82) U/L Urine Color Yellow Urine Appearance Clear (Clear) Urine pH 5.5 (4.5-7.5) Ur Specific [place] 1.006 (1.000-1.030) Urine Protein Negative (Negative) Urine Glucose (UA) Negative (Negative) Urine Ketones Negative (Negative) Urine Blood Trace H (Negative) Urine Nitrite Negative (Negative) Urine Bilirubin Negative (Negative) Urine Urobilinogen Negative (Negative) Ur Leukocyte Esterase Negative (Negative) Urine WBC (Auto) 0 (0-5) /hpf Urine RBC (Auto) 0-4 (0-4) /hpf U Hyaline Cast (Auto) 0 (0-5) /lpf U Epithel Cells (Auto) 0-5 (0-5) /lpf Urine Bacteria (Auto) Negative (Negative) Stl C. cayetanensis PCR Not Detected (NotDetected) Stool Rotavirus A PCR Not Detected (NotDetected) Stl Adenov F 40/41 PCR Not Detected (NotDetected) Stool Astrovirus (PCR) Not Detected (NotDetected) Stool Campylobacter PCR Not Detected (NotDetected) Stl C. diff Tox B Gene (Neg) Stl C.difficile Tox A&B (Negative) Stool Cryptosporidium PCR Not Detected (NotDetected) Stl E.coli Shiga Tox PCR Not Detected (NotDetected) Stl Enterotoxigenic E PCR Not Detected (NotDetected) Stool EPEC (PCR) Not Detected (NotDetected) Stool EAEC (PCR) Not Detected (NotDetected) Stl E. histolytica PCR Not Detected (NotDetected) Stool Giardia Lamblia PCR Not Detected (NotDetected) Stool Salmonella PCR Not Detected (NotDetected) Stool Sapovirus (PCR) Not Detected (NotDetected) Stl P. shigelloides PCR Not Detected (NotDetected) Stl Shigella/EIEC PCR Not Detected (NotDetected) St Y.enterocolitica PCR Not Detected (NotDetected) Stool Vibrio (PCR) Not Detected (NotDetected) Stl Vibrio cholerae PCR Not Detected (NotDetected) Stl Norovirus GI/GII PCR Not Detected (NotDetected) SARS-CoV-2, RNA, NAAT NEGATIVE (NEGATIVE) Administered Medications Amitriptyline HCl (Amitriptyline Hcl 25 Mg Tab) 25 mg PO [facility] Stop: 06/01/23 20:59 Last Admin: 05/02/23 21:47 Dose: 25 mg Documented By: FEDERICO Carvedilol (Carvedilol 12.5 Mg Tab) 12.5 mg PO BID [facility] Stop: 06/01/23 20:59 Last Admin: 05/03/23 08:28 Dose: 12.5 mg Documented By: Admin: 05/02/23 21:47 Dose: 12.5 mg Documented By: FEDERICO Clotrimazole (Clotrimazole Vaginal Cr 7 Appln/45 Gm Tube) 1 appln PV [facility] Stop: 05/09/23 20:59 Last Admin: 05/02/23 21:48 Dose: 1 appln Documented By: FEDERICO Cyanocobalamin (Cyanocobalamin (B-12) 500 Mcg Tablet) 1,000 mcg PO DAILY [facility] Stop: 06/02/23 08:59 Last Admin: 05/03/23 08:28 Dose: 1,000 mcg Documented By: LAILA Gabapentin (Gabapentin 100 Mg Cap) 100 mg PO TID [facility] Stop: 06/01/23 13:59 Last Admin: 05/03/23 08:28 Dose: 100 mg Documented By: Admin: 05/02/23 21:48 Dose: 100 mg Documented By: Admin: 05/02/23 14:20 Dose: 100 mg Documented By: ANTWAN Levothyroxine Sodium (Levothyroxine Sodium 125 Mcg Tablet) 125 mcg PO DAILYBB [facility] Stop: 06/02/23 06:29 Last Admin: 05/03/23 06:13 Dose: 125 mcg Documented By: FEDERICO Potassium Chloride (Potassium Chloride 10 Meq Tabcr) 10 meq PO BID [facility] Stop: 06/01/23 20:59 Last Admin: 05/03/23 08:29 Dose: 10 meq Documented By: Admin: 05/02/23 21:48 Dose: 10 meq Documented By: FEDERICO Pramipexole Dihydrochloride (Pramipexole Dihydrochlo 0.5 Mg Tab) 0.5 mg PO HS [facility] Stop: 06/01/23 20:59 Last Admin: 05/02/23 22:26 Dose: 0.5 mg Documented By: FEDERICO Pramipexole Dihydrochloride (Pramipexole Dihydrochlo 0.25 Mg Tab) 0.25 mg PO QDD [facility] Stop: 06/01/23 16:29 Last Admin: 05/02/23 17:52 Dose: 0.25 mg Documented By: ANTWAN Raspberry (Raspberry Syrup 5 Ml Udp) 5 ml PO Q6 [facility] Stop: 05/12/23 17:59 Last Admin: 05/03/23 06:12 Dose: 5 ml Documented By: Admin: 05/03/23 01:23 Dose: 5 ml Documented By: Admin: 05/02/23 17:52 Dose: 5 ml Documented By: ANTWAN Saccharomyces Boulardii (Saccharomyces Boulardii 250 Mg Cap) 250 mg PO BID [facility] Stop: 06/01/23 20:59 Last Admin: 05/03/23 08:28 Dose: 250 mg Documented By: Admin: 05/02/23 21:47 Dose: 250 mg Documented By: FEDERICO Vancomycin HCl (Vancomycin Hcl 125 Mg/2.5ml Soln) 125 mg PO Q6 [facility] Stop: 05/12/23 17:59 Last Admin: 05/03/23 06:12 Dose: 125 mg Documented By: Admin: 05/03/23 01:24 Dose: 125 mg Documented By: Admin: 05/02/23 17:53 Dose: 125 mg Documented By: ANTWAN Warfarin Sodium (Warfarin Sod 2.5 Mg Tab) 2.5 mg PO MOWEFR@1600 [facility] Stop: 06/01/23 15:59 Last Admin: 05/02/23 15:51 Dose: 2.5 mg Documented By: ANTWAN Discontinued Medications Sodium Chloride (Nss) 500 mls @ 999 mls/hr IV .Q31M ONE Stop: 05/02/23 08:39 Last Infusion: 05/02/23 09:12 Dose: 0 mls/hr Documented By: Admin: 05/02/23 08:13 Dose: 999 mls/hr Documented By: REGINALD Ceftriaxone Sodium (Rocephin) 2,000 mg in 70 mls @ 140 mls/hr IV NOW STA Stop: 05/02/23 10:26 Last Infusion: 05/02/23 10:49 Dose: 0 mls/hr Documented By: Admin: 05/02/23 10:27 Dose: 140 mls/hr Documented By: CORA Metronidazole (Flagyl) 500 mg in 100 mls @ 100 mls/hr IV NOW STA Stop: 05/02/23 10:56 Last Infusion: 05/02/23 12:01 Dose: 0 mls/hr Documented By: Admin: 05/02/23 10:40 Dose: 100 mls/hr Documented By: CORA Magnesium Sulfate/Dextrose (Magnesium Sulfate / D5w) 1 gm in 100 mls @ 100 mls/hr IV NOW STA Stop: 05/02/23 10:58 Last Infusion: 05/02/23 12:01 Dose: 0 mls/hr Documented By: Admin: 05/02/23 10:38 Dose: 100 mls/hr Documented By: CORA Magnesium Sulfate 3 gm/Potassium Chloride 40 meq/Sodium Chloride 1,026 mls @ 125 mls/hr IV .[id number] [facility] Stop: 05/02/23 19:57 Last Infusion: 05/02/23 21:33 Dose: 0 mls/hr Documented By: Admin: 05/02/23 13:20 Dose: 125 mls/hr Documented By: ANTWAN Sodium Chloride (Nss 1000ml) 1,000 mls @ 80 mls/hr IV .[id number] [facility] Stop: 05/03/23 10:29 Last Infusion: 05/03/23 10:34 Dose: 0 mls/hr Documented By: Admin: 05/02/23 21:50 Dose: 80 mls/hr Documented By: FEDERICO Potassium Chloride (Potassium Chloride Pwd 20 Meq Pack) 40 meq PO Q6H [facility] Stop: 05/02/23 18:01 Last Admin: 05/02/23 17:52 Dose: 40 meq Documented By: Admin: 05/02/23 13:21 Dose: 40 meq Documented By: ANTWAN Potassium Chloride (Potassium Chloride Crtab 20 Meq Tabcr) 40 meq PO ONE ONE Stop: 05/03/23 08:54 Last Admin: 05/03/23 09:33 Dose: 40 meq Documented By: LAILA Raspberry (Raspberry Syrup 5 Ml Udp) 5 ml PO ONE STA Stop: 05/02/23 10:51 Last Admin: 05/02/23 11:41 Dose: 5 ml Documented By: REGINALD Vancomycin HCl (Vancomycin Hcl 125 Mg/2.5ml Soln) 125 mg PO ONE STA Stop: 05/02/23 10:51 Last Admin: 05/02/23 11:41 Dose: 125 mg Documented By: REGINALD Discharge Plan Visit Data Chief Complaint: Abdominal Pain Stated Complaint: AB PAIN, DIARRHEA, SOB W/EXHURSTION ED Provider: Jasvir Lerner Discharge Problem: C. difficile colitis, Hypomagnesemia, Diverticulitis, Acute dehydration, Generalized weakness Patient Disposition: Admitted As Inpatient Discharge Instructions Interventions: ED Discharge Assessment Last Done: 05/02/23 12:04
[2023-05-02 08:44] LABS: Basophils # (auto) 0.01 K/uL (0-0.2); Basophils % (auto) 0.1 %; Eosinophils # (auto) 0.06 K/uL (0-0.50); Eosinophils % (auto) 0.9 %; Hematocrit (blood only) 34.1 % (37.0-47.0); Hemoglobin 11.6 g/dl (12.0-16.0); Immature Granulocytes # (auto) 0.02 K/uL (0.01-0.20); Immature Granulocytes % (auto) 0.3 %; Lymphocytes # (auto) 0.74 K/uL (1.2-3.4); Lymphocytes % (auto) 10.8 %; Mean Corpuscular Hemoglobin 30.7 pg (25.0-34.0); Mean Corpuscular Volume 90.2 fL (80.0-100.0); Mean Platelet Volume 11.9 fL (9.4-12.4); Monocytes # (auto) 0.49 K/uL (0.11-0.59); Monocytes % (auto) 7.1 %; Neutrophils # (auto) 5.54 K/uL (1.40-6.50); Neutrophils % (auto) 80.8 %; Platelet Count 149 K/uL (130-400); RDW Coefficient of Variation 14.8 % (11.5-14.5); RDW Standard Deviation 48.3 fL (36.4-46.3); Red Blood Count 3.78 M/uL (4.20-5.40); White Blood Count 6.86 K/ul (4.8-10.8)
--- NOTE | 2023-05-02 08:44 | CT Scan Report ---
CT OF THE ABDOMEN AND PELVIS WITHOUT CONTRAST CLINICAL HISTORY: diffuse lower abdominal pain x 3 weeks COMPARISON STUDY: CT of the abdomen pelvis June 13, 2021 and renal ultrasound July 16, 2022. TECHNIQUE: Axial images of the abdomen and pelvis were obtained without IV contrast. Images were revi ewed in the axial, sagittal, and coronal planes. Automated exposure control was utilized for the doreen dy. A dose lowering technique was utilized adhering to the principles of ALARA. FINDINGS: Cardiomegaly and dilatation of the central pulmonary arteries is incidentally noted. There is a small hiatal hernia. There is no pneumatosis, free air or portal venous gas. No hepatic lesions are identified on this unenhanced exam. The gallbladder surgically absent. Common bile duct is dilate d. This is similar to prior CT and likely related to cholecystectomy. Spleen, adrenal glands, kidneys and pancreas are unremarkable. There is no biliary or pancreatic ductal dilatation. There is no evid ence for a bowel obstruction. Colonic diverticulosis is noted. There is mild stranding adjacent to th e mid sigmoid colon. There is also mild stranding at the junction of the descending colon and sigmoid colon. Mild wall thickening of the transverse colon and descending colon is noted. This could be due to underdistention. There is no free air or abscess. The appendix is not visualized. There is no lym phadenopathy. Postoperative findings within the lumbosacral spine are noted. No acute fractures are n oted. There are multilevel degenerative changes within the lower thoracic and lumbar spine. IMPRESSION: 1. Mild stranding adjacent to the distal descending and sigmoid colon with colonic diverticulosis. Th e findings favor a mild acute diverticulitis. However, a nonspecific colitis could appear similar giv en apparent wall thickening of the transverse colon and descending colon. No free air or abscess. 2. No bowel obstruction. 3. Stable biliary ductal dilatation likely related to cholecystectomy. 4. Small hiatal hernia. ACT 112: Negative or not required by law. Electronically signed by: Jim Snyder M.D. 05/02/2023 8:42 AM
[2023-05-02 08:59] LABS: Albumin Level 3.6 gm/dl (3.4-5.0); Bilirubin Direct 0.1 mg/dl (0-0.2); Bilirubin,Total 0.5 mg/dl (0.2-1.0); Calcium 9.2 mg/dl (8.6-10.3); Creatinine Clr Calc Pharmacy 63.2 ml/min; Est GFR (Non-African American) 64.7 ml/min; Magnesium 1.4 mg/dl (1.7-2.4); Potassium 2.8 mmol/L (3.5-5.1); Total Protein 6.3 gm/dl (6.0-8.3)
[2023-05-02 09:03] LABS: Troponin I High Sensitivity 15.1 pg/ml (0-14)
[2023-05-02 09:38] LABS: Appearance Urine Clear (Clear); Bacteria Urine Automated Negative (Negative); Bilirubin Urine Negative (Negative); Blood Urine Trace (Negative); Cast Urine Automated 0 /lpf (0-5); Color Urine Yellow; Epithelial Cell Urine Auto 0-5 /lpf (0-5); Glucose Urine UA Negative (Negative); Ketones Urine Negative (Negative); Leukocyte Esterase Urine Negative (Negative); Nitrite Urine Negative (Negative); Protein Urine Negative (Negative); RBC Urine Automated 0-4 /hpf (0-4); Specific Gravity Urine 1.006 (1.000-1.030); Urobilinogen Urine Negative (Negative); WBC Urine Automated 0 /hpf (0-5); pH Urine 5.5 (4.5-7.5)
[2023-05-02] MEDS ORDERED: cefTRIAXone SODIUM 2,000 MG/70 ML BAG IV STA (09:57)
[2023-05-02] MEDS ORDERED: metroNIDAZOLE 500 MG/100 ML BAG IV STA (09:57)
[2023-05-02] MEDS ORDERED: MAGNESIUM SULFATE / D5W 1 GM/100 ML BAG IV STA (09:59)
[2023-05-02 10:21] LABS: Cdiff Toxin B Gene (2yr or >) Positive Cdiff Gene (Neg)
--- NOTE | 2023-05-02 10:31 | History & Physical Report ---
Date of Service May 02, 2023 Assessment & Plan (1) Clostridium difficile colitis: Plan: 78 y/o female with history of HFpEF, CKD3, HTN, history of PE, chronic AC w/ warfarin, JOSE, NIKKI on BiPAP, anxiety, anemia of chronic disease, lymphedema, chronic venous insufficiency, and recent left 3rd toe venous ulcer who presented to the ED with worsening abdominal pain and diarrhea. Pt had a negative C diff outpatient and was started on Lomotil for symptom control. However, after starting, she noted new-onset abdominal pain which has gradually worsened. Due to the severity of the pain, she presented to the ED. In the ED, CT showed diverticulitis vs. non-specific colitis. Stool for C. diff was positive so pt started on oral vancomycin. She was also noted to have hypokalemia and hypomagensemia, clinically appears dehydrated though no evidence of JULISSA. Initi al troponin was 15.1, repeat 21. No EKG changes, no anginal symptoms. - Admit to PCU due to electrolyte abnormalities - Electrolyte repletion started in the ED - will give additional potassium and m agnesium, recheck both in AM - Continue oral vancomycin QID as started in the ED - Contact isolation precautions - Holding bumetanide for now due to ongoing diarrhea, dehydration, electrolyte abnormalities - reassess tomorrow - PT/OT evaluations due to weakness, deconditioning (2) Hypokalemia: Plan: See plan for #1 (3) Hypomagnesemia: Plan: See plan for #1 (4) Chronic anticoagulation: Plan: Continue outpatient warfarin dosing as per last coag clinic note Daily INR while admitted (5) NIKKI (obstructive sleep apnea): Plan: BiPAP ordered with settings from last pulm note (6) Venous ulcer of left leg: Plan: Wound care consult for recommendations (7) Hypothyroidism: (8) JOSE (generalized anxiety disorder): (9) HTN (hypertension): (10) CKD (chronic kidney disease), stage III: (11) Anemia of chronic disease: (12) Restless leg syndrome: Plan Continue other home medications as appropriate. Pt seen and reviewed with collaborating physician, Dr. Stein. Plan of care discussed and as outlined above Code Status: Full Code DVT Prophylaxis: on chronic AC with warfarin Aysha Campbell PA-C History of Present Illness Chief Complaint: Diarrhea and abdominal pain Primary Care Provider: Tristan Conde MD This is an 78 y/o female with HFpEF, CKD 3, HTN, history of PE, on chronic AC w/ warfarin, JOSE, NIKKI (poor BiPAP compliance), anxiety, anemia of chronic disease, lymphedema, chronic venous insufficiency, and recent left 3rd toe venous ulcer who presented to the ED today with worsening abdominal pain and diarrhea x 3 weeks. Pt reports onset of diarrhea on 04/16 and it has gradually worsened since then. Currently, she is having 5-10 episodes of large volume watery diarrhea per day with urgency, incontinence and nocturnal stooling. She denies N/V, fevers, chills, sweats, melena or hematochezia. She had a negative C diff test outpatient so PCP prescribed Lomotil for diarrhea, which she started on Tuesday and has been taking Q6 hrs since then. Yesterday, she started with abdominal pain, worse since 3 am today. Current pain is 5/10 (was 6/10 at worst). Loss of appetite - nothing to eat since breakfast yesterday. Also notes worsening of diarrhea with eating. Denies similar symptoms previously. Of note, pt was on two courses of Cipro in the last month for toe ulcer which grew Pseudomonas on culture. Following with podiatry and wound care. No dysuria, hematuria, urinary frequency, decreased urinary output. Denies cough, congestion, ST, runny nose, CP, SOB. Chronic headaches - no worse than usual. Taking Advil 2 tab daily (no relief with Tylenol). Allergies Allergy/AdvReac Type Severity Reaction Status Date / Time No Known Allergies Allergy Verified 05/02/23 10:50 Home Medications Medication Instructions Recorded Confirmed Type amitriptyline 25 mg tablet 25 mg PO HS 09/21/22 05/02/23 History carvedilol 12.5 mg tablet 12.5 mg PO BID 09/21/22 05/02/23 History colestipol 1 gram tablet 2 g PO AMHS 09/21/22 05/02/23 History cyanocobalamin (vitamin B-12) 1,000 mcg PO DAILY 09/21/22 05/02/23 History 1,000 mcg tablet (Vitamin B-12) docusate sodium 100 mg capsule 100 mg PO BID PRN Constipation 09/21/22 05/02/23 History ferrous sulfate 325 mg (65 mg 325 mg PO DAILY 09/21/22 05/02/23 History iron) tablet (iron) gabapentin 100 mg capsule 100 mg PO TID 09/21/22 05/02/23 History lorazepam 0.5 mg tablet 0.5 mg PO TID PRN Anxiety 09/21/22 05/02/23 History oxycodone 5 mg tablet 5 mg PO Q4 PRN Severe Pain (Scale 09/21/22 05/02/23 History Score 7-10) pantoprazole 40 mg tablet,delayed 40 mg PO BID 09/21/22 05/02/23 History release pramipexole 0.25 mg tablet 0.25 mg PO .QAFTERNOON 09/21/22 05/02/23 History pramipexole 0.25 mg tablet 0.5 mg PO HS 09/21/22 05/02/23 History warfarin 5 mg tablet 2.5 mg PO MOWEFR@1600 09/21/22 05/02/23 History warfarin 5 mg tablet 5 mg PO DIRECTED 09/21/22 05/02/23 History ergocalciferol (vitamin D2) 1,250 1,250 mcg PO .tuesday10/18/22 05/02/23 History mcg (50,000 unit) capsule potassium chloride 10 mEq 10 meq PO BID #180 tabs 04/05/23 05/02/23 Rx tablet,extended release Saccharomyces boulardii 250 mg 250 mg PO BID 05/02/23 05/02/23 History capsule bumetanide 1 mg tablet 2 mg PO BID 05/02/23 05/02/23 History clonazepam 1 mg tablet 1 mg PO HS PRN RLS 05/02/23 05/02/23 History clotrimazole 1 % vaginal cream 1 applic vaginal HS 05/02/23 05/02/23 History diphenoxylate-atropine 2.5 1 tab PO Q6H PRN Diarrhea 05/02/23 05/02/23 History mg-0.025 mg tablet levothyroxine 125 mcg tablet 125 mcg PO QAM 05/02/23 05/02/23 History Past Med/Surg History Medical History (Updated 05/02/23 @ 16:51 by Mally Campbell PA-C) Acute kidney injury superimposed on CKD Anemia resolved per pt, blood transfusions "many yrs ago" unknown cause per pt; mild asymptomatic per nephrology 08/2021 note Anemia of chronic disease Cardiorenal syndrome with renal failure Chronic anticoagulation PE and long time warfarin CKD (chronic kidney disease), stage III Contusion Depression controlled, stable per pt JOSE (generalized anxiety disorder) controlled, stable per pt Heart failure HTN (hypertension) controlled, stable per pt Hyperkalemia Hypothyroidism IBS (irritable bowel syndrome) NIKKI (obstructive sleep apnea) Intolerant to CPAP-no current treatment NIKKI (obstructive sleep apnea) Peripheral neuropathy feet, uses rolling walker consistently Pulmonary embolism on warfarin, follows with anticoagulation clinic Venous insufficiency Vitamin D deficiency Surgical History History of bilateral knee replacement History of cataract extraction right and left History of hysterectomy History of open reduction and internal fixation (ORIF) procedure right foot History of spinal fusion Hx of total shoulder replacement right and left Left reverse TSA 02/01/2018: LMA#4 + PNB. No issues per anesthesia progress note. S/P cardiac cath "2002 - normal coronaries" S/P cholecystectomy S/P left knee arthroscopy Family History Father Pulmonary embolism, Onset Age: 69 Stroke Mother Arthritis Hypertension Sister Breast cancer Social History Smoking Status: Never smoker Second Hand Exposure: No; Do You Dip or Chew Tobacco: No; Hx Alcohol Use: No Hx Substance Use: No Preferred Language: Croatian Communication Ability: Effective Visual Impairment: Limited Hearing Ability: Hard of Hearing Tin Stacker Required: No Beliefs That Will Affect Care: None marital status: / Current Living Situation: Alone current occupational status: retired How many Children do You have: 2 How many Children do You have Comment: neither son is local, pt stated she has two sister in laws that assist with care as needed. She also has a niece that assists her frequently. Other Information That Helps Us Care for You: No Feels Safe at Home: Yes Safety Concerns: Feels Safe At This Time during the past year weight has: remained stable Assistive Devices: Glasses and Walker Review of Systems Review of Systems: All systems reviewed & are unremarkable except as noted in HPI & below Constitutional: + fatigue, + weakness and + anorexia; no fever and no chills Ear, Nose, Mouth, Throat: no nasal congestion, no nasal discharge and no sore throat Respiratory: no cough, no dyspnea and no wheezing Cardiovascular: no chest pain, no palpitations and no syncope Gastrointestinal: as per Subjective / HPI Genitourinary: no dysuria, no urinary frequency and no hematuria Musculoskeletal: no myalgia and no body aches Integumentary: no rash and no yellowing of the skin Neurologic: + headache(s); no dizziness Psychiatric: + anxiety; no depression Physical Exam Constitutional: well developed and well nourished; no acute distress Eyes: + anicteric sclerae ENMT: external ear and nose normal, oropharynx normal Neck: trachea midline Respiratory: no respiratory distress and no labored breathing Auscultation: lungs clear to auscultation bilaterally; no rales, no rhonchi and no wheezes Cardiovascular: Rate/Rhythm: regular rate and regular rhythm Vessels: radial pulses present Extremities: + edema Gastrointestinal (Abdomen): Inspection/Auscultation: normal bowel sounds; abdomen not distended Percussion/Palpation: + abdomen tender (LLQ without guarding) and abdomen soft Musculoskeletal: Head/Neck/Chest: normocephalic, head atraumatic and neck supple Skin: left toe ulcer with dressing Neurologic: moves all extremities; not confused Psychiatric: Orientation: alert and oriented x 3 Affect: + anxious affect Results & Data Results & Data Vital Signs (Past 12 Hours) Vital Signs Temp Pulse Resp BP Pulse Ox O2 Del Method 05/02/23 09:13 68 20 163/88 H 98 Room Air 05/02/23 09:11 84 17 165/99 H 97 Room Air 05/02/23 08:40 73 05/02/23 08:19 36.6 C 69 18 150/92 H 97 Room Air Laboratory Results Laboratory Results - last 24 hr 05/02/23 05/02/23 05/02/23 08:09 08:09 09:12 WBC 6.86 RBC 3.78 L Hgb 11.6 L Hct 34.1 L MCV 90.2 MCH 30.7 MCHC 34.0 RDW Std Deviation 48.3 H RDW Coeff of Bertha 14.8 H Plt Count 149 MPV 11.9 Immature Gran % (Auto) 0.3 Neut % (Auto) 80.8 Lymph % (Auto) 10.8 Dane % (Auto) 7.1 Eos % (Auto) 0.9 Baso % (Auto) 0.1 Neut # (Auto) 5.54 Lymph # (Auto) 0.74 L Dane # (Auto) 0.49 Eos # (Auto) 0.06 Baso # (Auto) 0.01 Immature Gran # (Auto) 0.02 Sodium 142 Potassium 2.8 L Chloride 106 Carbon Dioxide 28 Anion Gap 8 BUN 17 Creatinine 0.85 Est Cr Clr Drug Dosing 63.2 Est GFR ( Amer) 75.0 Est GFR (Non-Af Amer) 64.7 BUN/Creatinine Ratio 20.0 Glucose 99 Calcium 9.2 Magnesium 1.4 L Total Bilirubin 0.5 Direct Bilirubin 0.1 AST 18 ALT 12 Alkaline Phosphatase 137 H Troponin I High Sens 15.1 H Total Protein 6.3 Albumin 3.6 Lipase 56 Urine Color Urine Appearance Urine pH Ur Specific [place] Urine Protein Urine Glucose (UA) Urine Ketones Urine Blood Urine Nitrite Urine Bilirubin Urine Urobilinogen Ur Leukocyte Esterase Urine WBC (Auto) Urine RBC (Auto) U Hyaline Cast (Auto) U Epithel Cells (Auto) Urine Bacteria (Auto) Stl C. cayetanensis PCR Stool Rotavirus A PCR Stl Adenov F 40/41 PCR Stool Astrovirus (PCR) Stool Campylobacter PCR Stl C. diff Tox B Gene Positive Cdiff Gene H Stl C.difficile Tox A&B Pending Stool Cryptosporidium PCR Stl E.coli Shiga Tox PCR Stl Enterotoxigenic E PCR Stool EAEC (PCR) Stl E. histolytica PCR Stool Giardia Lamblia PCR Stool Salmonella PCR Stool Sapovirus (PCR) Stl P. shigelloides PCR Stl Shigella/EIEC PCR St Y.enterocolitica PCR Stool Vibrio (PCR) Stl Vibrio cholerae PCR Stl Norovirus GI/GII PCR 05/02/23 05/02/23 09:12 09:12 WBC RBC Hgb Hct MCV MCH MCHC RDW Std Deviation RDW Coeff of Bertha Plt Count MPV Immature Gran % (Auto) Neut % (Auto) Lymph % (Auto) Dane % (Auto) Eos % (Auto) Baso % (Auto) Neut # (Auto) Lymph # (Auto) Dane # (Auto) Eos # (Auto) Baso # (Auto) Immature Gran # (Auto) Sodium Potassium Chloride Carbon Dioxide Anion Gap BUN Creatinine Est Cr Clr Drug Dosing Est GFR ( Amer) Est GFR (Non-Af Amer) BUN/Creatinine Ratio Glucose Calcium Magnesium Total Bilirubin Direct Bilirubin AST ALT Alkaline Phosphatase Troponin I High Sens Total Protein Albumin Lipase Urine Color Yellow Urine Appearance Clear Urine pH 5.5 Ur Specific [place] 1.006 Urine Protein Negative Urine Glucose (UA) Negative Urine Ketones Negative Urine Blood Trace H Urine Nitrite Negative Urine Bilirubin Negative Urine Urobilinogen Negative Ur Leukocyte Esterase Negative Urine WBC (Auto) 0 Urine RBC (Auto) 0-4 U Hyaline Cast (Auto) 0 U Epithel Cells (Auto) 0-5 Urine Bacteria (Auto) Negative Stl C. cayetanensis PCR Pending Stool Rotavirus A PCR Pending Stl Adenov F 40/41 PCR Pending Stool Astrovirus (PCR) Pending Stool Campylobacter PCR Pending Stl C. diff Tox B Gene Stl C.difficile Tox A&B Stool Cryptosporidium PCR Pending Stl E.coli Shiga Tox PCR Pending Stl Enterotoxigenic E PCR Pending Stool EAEC (PCR) Pending Stl E. histolytica PCR Pending Stool Giardia Lamblia PCR Pending Stool Salmonella PCR Pending Stool Sapovirus (PCR) Pending Stl P. shigelloides PCR Pending Stl Shigella/EIEC PCR Pending St Y.enterocolitica PCR Pending Stool Vibrio (PCR) Pending Stl Vibrio cholerae PCR Pending Stl Norovirus GI/GII PCR Pending Diagnostic Findings Abdomen/Pelvis CT 05/02/23 08:08 CT OF THE ABDOMEN AND PELVIS WITHOUT CONTRAST CLINICAL HISTORY: diffuse lower abdominal pain x 3 weeks COMPARISON STUDY: CT of the abdomen pelvis June 13, 2021 and renal ultrasound July 16, 2022. TECHNIQUE: Axial images of the abdomen and pelvis were obtained without IV contrast. Images were reviewed in the axial, sagittal, and coronal planes. Automated exposure control was utilized for the study. A dose lowering technique was utilized adhering to the principles of ALARA. FINDINGS: Cardiomegaly and dilatation of the central pulmonary arteries is incidentally noted. There is a small hiatal hernia. There is no pneumatosis, free air or portal venous gas. No hepatic lesions are identified on this unenhanced exam. The gallbladder surgically absent. Common bile duct is dilated. This is similar to prior CT and likely related to cholecystectomy. Spleen, adrenal glands, kidneys and pancreas are unremarkable. There is no biliary or pancreatic ductal dilatation. There is no evidence for a bowel obstruction. Colonic diverticulosis is noted. There is mild stranding adjacent to the mid sigmoid colon. There is also mild stranding at the junction of the descending colon and sigmoid colon. Mild wall thickening of the transverse colon and descending colon is noted. This could be due to underdistention. There is no free air or abscess. The appendix is not visualized. There is no lymphadenopathy. Postoperative findings within the lumbosacral spine are noted. No acute fractures are noted. There are multilevel degenerative changes within the lower thoracic and lumbar spine. IMPRESSION: 1. Mild stranding adjacent to the distal descending and sigmoid colon with colonic diverticulosis. The findings favor a mild acute diverticulitis. However, a nonspecific colitis could appear similar given apparent wall thickening of the transverse colon and descending colon. No free air or abscess. 2. No bowel obstruction. 3. Stable biliary ductal dilatation likely related to cholecystectomy. 4. Small hiatal hernia. ACT 112: Negative or not required by law. Electronically signed by: Jim Snyder M.D. 05/02/2023 8:42 AM Medications Administered Discontinued Medications Sodium Chloride (Nss) 500 mls @ 999 mls/hr IV .Q31M ONE Stop: 05/02/23 08:39 Last Infusion: 05/02/23 09:12 Dose: 0 mls/hr Documented By: Admin: 05/02/23 08:13 Dose: 999 mls/hr Documented By: REGINALD Supervising Physician Co-Signing Physician Notes I have seen and examined the patient and have discussed the case with the provider above. I agree with the assessment and plan as stated with the following exceptions. The patient is an 78-year-old female presenting with ongoing diarrhea since 16 April. She reports 4 weeks of antibiotics in the month of March for a foot infection which is resolved. She reports after stopping antib iotics on 04/13 she began having some diarrhea on April 16. This continue to progress without fevers or chills and ultimately in the last couple of days became more frequent with new onset abdominal pain in the lower abdomen. She denies having any food intake for the past 48 hours because "I was scared to eat and have an accident". She denies any vomiting or nausea. On physical exam she appears fatigued but in no acute distress. She is mentating clearly. Cardiac exam reveals S1-S2 heard with no murmurs. Regular rhythm and rate. She is euvolemic to dry. Lungs are clear to auscultation rommel aterally. Abdomen reveals left lower quadrant tenderness to palpation but otherwise abdomen is soft and nondistended. Skin is warm and dry. Work-up today reveals positive C. difficile toxin with gene. There is no leukocytosis on CBC with an H&H at baseline (11.6/34.1). INR is 2.2 and she is noted to be on warfarin. BMP reveals potassium of 2.8 with a BUN of 17 and creatinine at her baseline of 0.85. Magnesium is 1.4. Highly sensitive troponin was initially 15.1 with 2-hour repeat at 21. She denies any chest discomfort and her EKG reveals sinus rhythm with first-degree AV block and right bundle branch block. There is no evidence of acute ischemia. Notably last echocardiogram in September 2022 reveals normal LV systolic function with an ejection fraction of 50 to 55 percent. Borderline concentric LVH was noted with mild to moderate mitral regurgitation. A CT scan of the abdomen pelvis without contrast reveals mild stranding in the descending and sigmoid colon consistent with a mild diverticulitis versus nonspecific colitis. There is similar wall thickening of the transverse and descending colon with no free air or abscess. There is no evidence of bowel obstruction. Small hiatal hernia is noted. 1. C. difficile colitis 2. History of PE on chronic anticoagulation with warfarin 3. Depression 4. NIKKI 5. Hypothyroidism 78-year-old female with significant recent antibiotic use presents with C. difficile colitis. Started on vancomycin p.o. in the ER and will continue every 6hrs. Replace electrolytes including potassium and magnesium which are low secondary to not eating along with diarrhea. Encouraged BRAT diet. Of note patient is also on pantoprazole 40 mg p.o. twice daily which has been identified as a risk factor for C. difficile infection. However given antibiotic usage recently would continue this medication for now as she uses it chronically and reassess as needed. Would hold Bumex for now given the ongoing diarrhea and risk of dehydration. (of note, I was unable to view prior records as my access to EMR link is currently compromised/unavailable.) DO Emil
[2023-05-02 10:46] LABS: Cdiff Antigen Positive
[2023-05-02 10:49] LABS: Cdiff Toxin A+B Positive Cdiff Toxin (Negative)
[2023-05-02] MEDS ORDERED: RASPBERRY SYRUP 5 ML UDP PO STA (10:50)
[2023-05-02] MEDS ORDERED: VANCOMYCIN HCL 125 MG/2.5ML SOLN PO STA (10:50)
[2023-05-02 10:54] LABS: Adenovirus F 40/41 PCR Not Detected (NotDetected); Astrovirus PCR Not Detected (NotDetected); Campylobacter PCR Not Detected (NotDetected); Cryptosporidium PCR Not Detected (NotDetected); Cyclospora cayetanensis PCR Not Detected (NotDetected); Entamoeba histolytica PCR Not Detected (NotDetected); Enteroaggregative E.coli(EAEC) Not Detected (NotDetected); Enteropathogenic E.coli (EPEC) Not Detected (NotDetected); Enterotoxigenic E.coli (ETEC) Not Detected (NotDetected); Giardia lamblia PCR Not Detected (NotDetected); Norovirus GI/GII PCR Not Detected (NotDetected); Plesiomonas shigelloides PCR Not Detected (NotDetected); Rotavirus A PCR Not Detected (NotDetected); Salmonella PCR Not Detected (NotDetected); Sapovirus PCR Not Detected (NotDetected); Shiga-like Toxin E.coli (STEC) Not Detected (NotDetected); Shigella/Enteroinvasive E.coli Not Detected (NotDetected); Vibrio cholerae PCR Not Detected (NotDetected); Vibrio species PCR Not Detected (NotDetected); Yersinia enterocolitica PCR Not Detected (NotDetected)
[2023-05-02] MEDS ORDERED: MAGNESIUM SULFATE IV SCH (11:45)
[2023-05-02] MEDS ORDERED: POTASSIUM CHLORIDE IV SCH (11:45)
[2023-05-02] MEDS ORDERED: [UNRECOGNIZED DRUG - OTHER] IV SCH (11:45)
[2023-05-02] MEDS ORDERED: clonazePAM 1 MG TAB PO PRN (13:18)
[2023-05-02] MEDS ORDERED: LORazepam 0.5 MG TAB PO PRN (13:18)
[2023-05-02] MEDS: POTASSIUM CHLORIDE PWD 20 MEQ PACK PO SCH ×2 (13:21→17:52)
[2023-05-02 14:02] LABS: INR 2.2 (0.9-1.1); Prothrombin Time 23.3 Seconds (9.0-12.0)
--- NOTE | 2023-05-02 14:02 | Electrocardiogram Report ---
Test Reason : Blood Pressure : / mmHG Vent. Rate : 070 BPM Atrial Rate : 070 BPM P-R Int : 214 ms QRS Dur : 088 ms QT Int : 444 ms P-R-T Axes : 054 -02 -16 degrees QTc Int : 479 ms Poor data quality, interpretation may be adversely affected Sinus rhythm with 1st degree A-V block with Premature supraventricular complexes Right bundle branch block Nonspecific T wave abnormality Abnormal ECG When compared with ECG of 22-SEP-2022 06:23, Premature ventricular complexes are now Present QRS duration has decreased Acute Anteroseptal infarct is now Present Confirmed by Michael Javier ([id number]) on 05/02/2023 2:02:10 PM Referred By: REFERRED SELF Confirmed By:Michael Javier
[2023-05-02] MEDS: GABAPENTIN 100 MG CAP PO SCH ×2 (14:20→21:48)
[2023-05-02] MEDS: WARFARIN SOD 2.5 MG TAB PO SCH (15:51)
--- NOTE | 2023-05-02 16:19 | Communication Note ---
Date of Service: May 02, 2023 HOSPITALIST ATTENDING: Patient is an 78-year-old female presenting with ongoing diarrhea since 16 April. She reports 4 weeks of antibiotics in the month of March for a foot infection which is resolved. She reports after stopping antibiotics on 04/13 she began having some diarrhea on April 16. This continue to progress without fevers or chills and ultimately in the last couple of days became more frequent with new onset abdominal pain in the lower abdomen. She denies having any food intake for the past 48 hours because "I was scared to eat and have an accident". She denies any vomiting or nausea. On physical exam she appears fatigued but in no acute distress. She is mentating clearly. Cardiac exam reveals S1-S2 heard with no murmurs. Regular rhythm and rate. She is euvolemic to dry. Lungs are clear to auscultation bilaterally. Abdomen reveals left lower quadrant tenderness to palpation but otherwise abdomen is soft and nondistended. Skin is warm and dry. Work-up today reveals positive C. difficile toxin with gene. There is no leukocytosis on CBC with an H&H at baseline (11.6/34.1). INR is 2.2 and she is noted to be on warfarin. BMP reveals potassium of 2.8 with a BUN of 17 and creatinine at her baseline of 0.85. Magnesium is 1.4. Highly sensitive troponin was initially 15.1 with 2-hour repeat at 21. She denies any chest d iscomfort and her EKG reveals sinus rhythm with first-degree AV block and right bundle branch block. There is no evidence of acute ischemia. Notably last echocardiogram in September 2022 reveals normal LV systolic function with an ejection fraction of 50 to 55 percent. Borderline concentric LVH was noted with mild to moderate mitral regurgitation. A CT scan of the abdomen pelvis without contrast reveals mild stranding in the descending and sigmoid colon consistent with a mild diverticulitis versus nonspecific colitis. There is similar wall thickening of the transverse and descending colon with no free air or abscess. There is no evidence of bowel obstruction. Small hiatal hernia is noted. 1. C. difficile colitis 2. History of PE on chronic anticoagulation with warfarin 3. Depression 4. NIKKI 5. Hypothyroidism 78-year-old female with significant recent antibiotic use presents with C. difficile colitis. Started on vancomycin p.o. in the ER and will continue every 6hrs. Replace electrolytes including potassium and magnesium which are low secondary to not eating along with diarrhea. Encouraged BRAT diet. Of note patient is also on pantoprazole 40 mg p.o. twice daily which has been identified as a risk factor for C. difficile infection. However given antibiotic usage recently would continue this medication for now as she uses it chronically and reassess as needed. Would hold Bumex for now given the ongoing diarrhea and risk of dehydration. (of note, I was unable to view prior records as my access to EMR link is currently compromised/unavailable.) DO Emil
[2023-05-02] MEDS: RASPBERRY SYRUP 5 ML UDP PO SCH (17:52)
[2023-05-02] MEDS: PRAMIPEXOLE DIHYDROCHLO 0.25 MG TAB PO SCH (17:52)
[2023-05-02] MEDS: VANCOMYCIN HCL 125 MG/2.5ML SOLN PO SCH (17:53)
[2023-05-02] MEDS: AMITRIPTYLINE HCL 25 MG TAB PO SCH (21:47)
[2023-05-02] MEDS: carvediloL 12.5 MG TAB PO SCH (21:47)
[2023-05-02] MEDS: SACCHAROMYCES BOULARDII 250 MG CAP PO SCH (21:47)
[2023-05-02] MEDS: CLOTRIMAZOLE VAGINAL CR 7 APPLN/45 GM TUBE PV SCH (21:48)
[2023-05-02] MEDS: POTASSIUM CHLORIDE 10 MEQ TABCR PO SCH (21:48)
[2023-05-02] MEDS ORDERED: SODIUM CHLORIDE 0.9% 1000ML 1,000 ML IV SCH (22:00)
[2023-05-02] MEDS: PRAMIPEXOLE DIHYDROCHLO 0.5 MG TAB PO SCH (22:26)
[2023-05-03] MEDS: RASPBERRY SYRUP 5 ML UDP PO SCH ×4 (01:23→17:18)
[2023-05-03] MEDS: VANCOMYCIN HCL 125 MG/2.5ML SOLN PO SCH ×4 (01:24→17:19)
[2023-05-03] MEDS: LEVOTHYROXINE SODIUM 125 MCG TABLET PO SCH (06:13)
[2023-05-03 08:05] LABS: Eosinophils # (auto) 0.05 K/uL (0-0.50); Eosinophils % (auto) 1.3 %; Hematocrit (blood only) 33.4 % (37.0-47.0); Hemoglobin 11.3 g/dl (12.0-16.0); Immature Granulocytes # (auto) 0.01 K/uL (0.01-0.20); Immature Granulocytes % (auto) 0.3 %; Lymphocytes # (auto) 0.58 K/uL (1.2-3.4); Lymphocytes % (auto) 15.5 %; Mean Corpuscular Hemoglobin 30.8 pg (25.0-34.0); Mean Corpuscular Hgb Conc 33.8 g/dL (32.0-36.0); Mean Platelet Volume 11.9 fL (9.4-12.4); Monocytes # (auto) 0.33 K/uL (0.11-0.59); Monocytes % (auto) 8.8 %; Neutrophils # (auto) 2.77 K/uL (1.40-6.50); Neutrophils % (auto) 74.1 %; Platelet Count 136 K/uL (130-400); RDW Coefficient of Variation 15.1 % (11.5-14.5); RDW Standard Deviation 50.4 fL (36.4-46.3); Red Blood Count 3.67 M/uL (4.20-5.40); White Blood Count 3.74 K/ul (4.8-10.8)
[2023-05-03 08:20] LABS: BUN Creatinine Ratio 13.4 (10-20); Calcium 9.1 mg/dl (8.6-10.3); Creatinine Clr Calc Pharmacy 79.4 ml/min; Est GFR (African American) 96.2 ml/min; Magnesium 2.1 mg/dl (1.7-2.4); Potassium 3.3 mmol/L (3.5-5.1)
[2023-05-03 08:27] LABS: INR 2.5 (0.9-1.1); Prothrombin Time 25.6 Seconds (9.0-12.0)
[2023-05-03] MEDS: GABAPENTIN 100 MG CAP PO SCH ×3 (08:28→21:16)
[2023-05-03] MEDS: SACCHAROMYCES BOULARDII 250 MG CAP PO SCH ×2 (08:28→21:16)
[2023-05-03] MEDS: carvediloL 12.5 MG TAB PO SCH ×2 (08:28→21:15)
[2023-05-03] MEDS: CYANOCOBALAMIN (B-12) 500 MCG TABLET PO SCH (08:28)
[2023-05-03] MEDS: POTASSIUM CHLORIDE 10 MEQ TABCR PO SCH ×2 (08:29→21:16)
[2023-05-03] MEDS ORDERED: POTASSIUM CHLORIDE CRTAB 20 MEQ TABCR PO ONE (08:53)
[2023-05-03] MEDS: PRAMIPEXOLE DIHYDROCHLO 0.25 MG TAB PO SCH (16:04)
[2023-05-03] MEDS: WARFARIN SOD 5 MG TAB PO SCH (16:04)
--- NOTE | 2023-05-03 16:23 | Hospitalist Progress Note ---
Date of Service May 03, 2023 Assessment & Plan (1) Clostridium difficile colitis: Plan: Patient is an 89 y/o female with history of HFpEF, CKD3, HTN, history of PE, chronic AC w/ warfarin, JOSE, NIKKI on BiPAP, anxiety, anemia of chronic disease, lymphedema, chronic venous insufficiency, and recent left 3rd toe venous ulcer who presented to the ED with worsening abdominal pain and diarrhea. Pt had a negative C diff outpatient and was started on Lomotil for symptom control. However, after starting, she noted new-onset abdominal pain which has gradually worsened. Due to the severity of the pain, she presented to the ED. C. difficile colitis --CT ABD:Mild stranding adjacent to the distal descending and sigmoid colon with colonic diverticulosis. The findings favor a mild acute diverticulitis. However, a nonspecific colitis could appear similar given apparent wall thickening of the transverse colon and descending colon. No free air or abscess. No bowel obstruction. Stable biliary ductal dilatation likely related to cholecystectomy. Small hiatal hernia. -- Stool studies positive for C. difficile -- Continue p.o. vancomycin Monitor renal function, electrolytes, volume status Continue isolation precautions Home diuretics held for now Hypokalemia Hypomagnesemia Secondary to GI losses Replete electrolytes as needed Monitor Generalized weakness Secondary to above PT OT Chronic troponin elevation Echo showed no wall motion abnormality (2) Hypokalemia: (3) Hypomagnesemia: (4) Chronic anticoagulation: Plan: INR therapeutic Monitor INR: 2.5 Continue Coumadin (5) NIKKI (obstructive sleep apnea): Plan: Continue BiPAP at bedtime (6) Venous ulcer of left leg: Plan: Continue wound care Follow-up with podiatry as outpatient (7) Hypothyroidism: Plan: Continue levothyroxine (8) JOSE (generalized anxiety disorder): Plan: Continue home medications (9) HTN (hypertension): Plan: Continue Coreg (10) CKD (chronic kidney disease), stage III: Plan: Renal function at baseline Monitor (11) Anemia of chronic disease: (12) Restless leg syndrome: Plan: Continue pramipexole Plan Morbid Obesity BMI 51 DVT Px: On Coumadin Code Status Full Code Admission and Anticipated Discharge Date Admission Date: May 02, 2023 Subjective Patient is seen and examined at bedside States having diarrhea Also reports left lower quadrant abdominal pain Denies any chest pain, dyspnea, dizziness, nausea No other complaints Review of Systems Review of Systems: All systems reviewed & are unremarkable except as noted in Subjective Physical Exam Physical Exam: Physical Exam: Vitals signs as noted above General Appearance:Morbidly Obese, no apparent distress Head: normocephalic, Atraumatic Eyes: normal inspection, EOMI Neck: supple, Trachea midline Respiratory/Chest: Normal breath sounds, CTA, No accessory muscle use Cardiovascular: S1, S2, No murmur Abdomen/GI:Soft, Non tender, Bowel sounds present Extremities/Musculoskeletal:normal inspection, no edema, 3rd L toe plantar wound Neurologic/Psych:AAOX3, grossly no focal neurological deficits Skin: normal color, warm Results & Data Results & Data Vital Signs (Past 12 Hours) Vital Signs Temp Pulse Pulse Resp BP Pulse Ox O2 Del Method 05/03/23 15:55 57 L 05/03/23 12:22 36.8 C 60 18 129/79 95 Room Air 05/03/23 08:01 36.6 C 63 18 147/81 H 95 Room Air Laboratory Results Short CBC 05/03/23 Range/Units 07:10 WBC 3.74 L (4.8-10.8) K/ul Hgb 11.3 L (12.0-16.0) g/dl Hct 33.4 L (37.0-47.0) % Plt Count 136 (130-400) K/uL BMP 05/03/23 07:10 Sodium 140 Potassium 3.3 L Chloride 109 H Carbon Dioxide 27 BUN 9 Creatinine 0.67 Glucose 103 H Calcium 9.1
[2023-05-03] MEDS ORDERED: POTASSIUM CHLORIDE CRTAB 20 MEQ TABCR PO STA (20:31)
[2023-05-03] MEDS ORDERED: FAMOTIDINE 20 MG in SYRINGE 3 ML IV PRN (21:00)
[2023-05-03] MEDS: AMITRIPTYLINE HCL 25 MG TAB PO SCH (21:15)
[2023-05-03] MEDS: PRAMIPEXOLE DIHYDROCHLO 0.5 MG TAB PO SCH (21:16)
[2023-05-03] MEDS: CLOTRIMAZOLE VAGINAL CR 7 APPLN/45 GM TUBE PV SCH (21:16)
[2023-05-04] MEDS: RASPBERRY SYRUP 5 ML UDP PO SCH ×5 (01:01→23:30)
[2023-05-04] MEDS: VANCOMYCIN HCL 125 MG/2.5ML SOLN PO SCH ×5 (01:01→23:30)
[2023-05-04] MEDS: ACETAMINOPHEN 325 MG TAB PO PRN (03:34)
[2023-05-04 06:13] LABS: BUN Creatinine Ratio 9.9 (10-20); Creatinine Clr Calc Pharmacy 74.9 ml/min; Est GFR (African American) 93.2 ml/min; Est GFR (Non-African American) 80.4 ml/min; Magnesium 1.9 mg/dl (1.7-2.4); Potassium 3.8 mmol/L (3.5-5.1)
[2023-05-04 06:22] LABS: Eosinophils % (auto) 2.2 %; Hematocrit (blood only) 33.9 % (37.0-47.0); Hemoglobin 11.2 g/dl (12.0-16.0); Immature Granulocytes # (auto) 0.01 K/uL (0.01-0.20); Immature Granulocytes % (auto) 0.2 %; Lymphocytes # (auto) 0.75 K/uL (1.2-3.4); Lymphocytes % (auto) 16.8 %; Mean Corpuscular Hemoglobin 30.4 pg (25.0-34.0); Mean Corpuscular Volume 91.9 fL (80.0-100.0); Mean Platelet Volume 11.6 fL (9.4-12.4); Monocytes # (auto) 0.43 K/uL (0.11-0.59); Monocytes % (auto) 9.6 %; Neutrophils # (auto) 3.17 K/uL (1.40-6.50); Neutrophils % (auto) 71.2 %; Platelet Count 137 K/uL (130-400); RDW Coefficient of Variation 15.1 % (11.5-14.5); RDW Standard Deviation 51.1 fL (36.4-46.3); Red Blood Count 3.69 M/uL (4.20-5.40); White Blood Count 4.46 K/ul (4.8-10.8)
[2023-05-04 06:28] LABS: INR 2.6 (0.9-1.1); Prothrombin Time 26.6 Seconds (9.0-12.0)
[2023-05-04] MEDS: LEVOTHYROXINE SODIUM 125 MCG TABLET PO SCH (07:20)
[2023-05-04] MEDS: SACCHAROMYCES BOULARDII 250 MG CAP PO SCH ×2 (08:21→20:50)
[2023-05-04] MEDS: CYANOCOBALAMIN (B-12) 500 MCG TABLET PO SCH (08:21)
[2023-05-04] MEDS: carvediloL 12.5 MG TAB PO SCH ×2 (08:22→20:50)
[2023-05-04] MEDS: POTASSIUM CHLORIDE 10 MEQ TABCR PO SCH ×2 (08:22→20:51)
[2023-05-04] MEDS: GABAPENTIN 100 MG CAP PO SCH ×3 (08:22→20:50)
[2023-05-04] MEDS: PRAMIPEXOLE DIHYDROCHLO 0.25 MG TAB PO SCH (13:28)
--- NOTE | 2023-05-04 15:38 | Electrocardiogram Report ---
Test Reason : Blood Pressure : / mmHG Vent. Rate : 065 BPM Atrial Rate : 065 BPM P-R Int : 226 ms QRS Dur : 066 ms QT Int : 438 ms P-R-T Axes : 052 -01 -13 degrees QTc Int : 455 ms Poor data quality, interpretation may be adversely affected Sinus rhythm with 1st degree A-V block with Premature supraventricular complexes Low voltage QRS Septal infarct (cited on or before 02-MAY-2023) Abnormal ECG When compared with ECG of 02-MAY-2023 08:13, QRS duration has decreased Confirmed by Michael Javier ([id number]) on 05/04/2023 3:37:42 PM Referred By: REFERRED SELF Confirmed By:Michael Javier
--- NOTE | 2023-05-04 16:22 | Hospitalist Progress Note ---
Date of Service May 04, 2023 Assessment & Plan (1) Clostridium difficile colitis: Plan: Patient is an 89 y/o female with history of HFpEF, CKD3, HTN, history of PE, chronic AC w/ warfarin, JOSE, NIKKI on BiPAP, anxiety, anemia of chronic disease, lymphedema, chronic venous insufficiency, and recent left 3rd toe venous ulcer who presented to the ED with worsening abdominal pain and diarrhea. Pt had a negative C diff outpatient and was started on Lomotil for symptom control. However, after starting, she noted new-onset abdominal pain which has gradually worsened. Due to the severity of the pain, she presented to the ED. C. difficile colitis --CT ABD:Mild stranding adjacent to the distal descending and sigmoid colon with colonic diverticulosis. The findings favor a mild acute diverticulitis. However, a nonspecific colitis could appear similar given apparent wall thickening of the transverse colon and descending colon. No free air or abscess. No bowel obstruction. Stable biliary ductal dilatation likely related to cholecystectomy. Small hiatal hernia. -- Stool studies positive for C. difficile -- Continue p.o. vancomycin Monitor renal function, electrolytes, volume status Continue isolation precautions Resume home diuretics as able Continue current management Tolerating diet Hypokalemia Hypomagnesemia Secondary to GI losses Replete electrolytes as needed Monitor Generalized weakness Secondary to above PT OT Chronic troponin elevation Echo showed no wall motion abnormality (2) Hypokalemia: (3) Hypomagnesemia: (4) Chronic anticoagulation: Plan: INR therapeutic Monitor INR: 2.6 today Continue Coumadin (5) NIKKI (obstructive sleep apnea): Plan: Continue BiPAP at bedtime (6) Venous ulcer of left leg: Plan: Continue wound care Follow-up with podiatry as outpatient (7) Hypothyroidism: Plan: Continue levothyroxine (8) JOSE (generalized anxiety disorder): Plan: Continue home medications (9) HTN (hypertension): Plan: Continue Coreg (10) CKD (chronic kidney disease), stage III: Plan: Renal function at baseline Monitor (11) Anemia of chronic disease: (12) Restless leg syndrome: Plan: Continue pramipexole Plan Morbid Obesity BMI 51 DVT Px: On Coumadin Code Status Full Code Admission and Anticipated Discharge Date Admission Date: May 02, 2023 Subjective Patient is seen and examined at bedside Diarrhea improving Abdominal pain much improved as well Please states having chronic claustrophobia, restless leg No new complaints Denies any chest pain, dyspnea, dizziness, nausea Review of Systems Review of Systems: All systems reviewed & are unremarkable except as noted in Subjective Physical Exam Physical Exam: Physical Exam: Vitals signs as noted above General Appearance:Morbidly Obese, no apparent distress Head: normocephalic, Atraumatic Eyes: normal inspection, EOMI Neck: supple, Trachea midline Respiratory/Chest: Normal breath sounds, CTA, No accessory muscle use Cardiovascular: S1, S2, No murmur Abdomen/GI:Soft, Non tender, Bowel sounds present Extremities/Musculoskeletal:normal inspection, no edema, 3rd L toe plantar wound Neurologic/Psych:AAOX3, grossly no focal neurological deficits Skin: normal color, warm Results & Data Results & Data Vital Signs (Past 12 Hours) Vital Signs Temp Pulse Resp BP Pulse Ox O2 Del Method 05/04/23 14:42 36.6 C 61 18 172/89 H 96 Room Air 05/04/23 07:23 36.4 C L 57 L 16 159/84 H 98 Room Air Laboratory Results Short CBC 05/04/23 Range/Units 05:35 WBC 4.46 L (4.8-10.8) K/ul Hgb 11.2 L (12.0-16.0) g/dl Hct 33.9 L (37.0-47.0) % Plt Count 137 (130-400) K/uL BMP 05/04/23 05:35 Sodium 137 Potassium 3.8 Chloride 110 H Carbon Dioxide 22 BUN 7 Creatinine 0.71 Glucose 105 H Calcium 9.0
[2023-05-04] MEDS: WARFARIN SOD 2.5 MG TAB PO SCH (17:08)
[2023-05-04] MEDS: PRAMIPEXOLE DIHYDROCHLO 0.5 MG TAB PO SCH (20:50)
[2023-05-04] MEDS: CLOTRIMAZOLE VAGINAL CR 7 APPLN/45 GM TUBE PV SCH (20:50)
[2023-05-04] MEDS: AMITRIPTYLINE HCL 25 MG TAB PO SCH (20:51)
[2023-05-05] MEDS: RASPBERRY SYRUP 5 ML UDP PO SCH ×4 (05:41→23:58)
[2023-05-05] MEDS: VANCOMYCIN HCL 125 MG/2.5ML SOLN PO SCH ×4 (05:41→23:58)
[2023-05-05] MEDS: LEVOTHYROXINE SODIUM 125 MCG TABLET PO SCH (05:41)
[2023-05-05 07:28] LABS: Basophils # (auto) 0.01 K/uL (0-0.2); Basophils % (auto) 0.3 %; Eosinophils # (auto) 0.09 K/uL (0-0.50); Eosinophils % (auto) 2.3 %; Hematocrit (blood only) 34.2 % (37.0-47.0); Hemoglobin 11.5 g/dl (12.0-16.0); Immature Granulocytes # (auto) 0.01 K/uL (0.01-0.20); Immature Granulocytes % (auto) 0.3 %; Lymphocytes # (auto) 0.66 K/uL (1.2-3.4); Lymphocytes % (auto) 17.1 %; Mean Corpuscular Hemoglobin 30.7 pg (25.0-34.0); Mean Corpuscular Hgb Conc 33.6 g/dL (32.0-36.0); Mean Corpuscular Volume 91.2 fL (80.0-100.0); Mean Platelet Volume 11.5 fL (9.4-12.4); Monocytes # (auto) 0.36 K/uL (0.11-0.59); Monocytes % (auto) 9.3 %; Neutrophils # (auto) 2.74 K/uL (1.40-6.50); Neutrophils % (auto) 70.7 %; Platelet Count 133 K/uL (130-400); RDW Coefficient of Variation 14.9 % (11.5-14.5); RDW Standard Deviation 49.8 fL (36.4-46.3); Red Blood Count 3.75 M/uL (4.20-5.40); White Blood Count 3.87 K/ul (4.8-10.8)
[2023-05-05 07:46] LABS: BUN Creatinine Ratio 10.4 (10-20); Calcium 9.4 mg/dl (8.6-10.3); Creatinine Clr Calc Pharmacy 79.4 ml/min; Est GFR (African American) 96.2 ml/min; Magnesium 1.8 mg/dl (1.7-2.4); Potassium 3.9 mmol/L (3.5-5.1)
[2023-05-05 07:49] LABS: INR 2.8 (0.9-1.1); Prothrombin Time 28.8 Seconds (9.0-12.0)
[2023-05-05] MEDS: CYANOCOBALAMIN (B-12) 500 MCG TABLET PO SCH (07:59)
[2023-05-05] MEDS: POTASSIUM CHLORIDE 10 MEQ TABCR PO SCH ×2 (07:59→21:01)
[2023-05-05] MEDS: SACCHAROMYCES BOULARDII 250 MG CAP PO SCH ×2 (07:59→20:49)
[2023-05-05] MEDS: carvediloL 12.5 MG TAB PO SCH ×2 (07:59→20:48)
[2023-05-05] MEDS: GABAPENTIN 100 MG CAP PO SCH ×3 (07:59→20:47)
[2023-05-05] MEDS ORDERED: BUMETANIDE 1 MG TAB PO SCH (10:00)
[2023-05-05] MEDS: PRAMIPEXOLE DIHYDROCHLO 0.25 MG TAB PO SCH (10:06)
[2023-05-05] MEDS: BUMETANIDE 1 MG TAB PO SCH ×2 (11:25→17:03)
[2023-05-05] MEDS: ACETAMINOPHEN 325 MG TAB PO PRN (16:20)
--- NOTE | 2023-05-05 16:20 | Hospitalist Progress Note ---
Date of Service May 05, 2023 Assessment & Plan (1) Clostridium difficile colitis: Plan: Patient is an 89 y/o female with history of HFpEF, CKD3, HTN, history of PE, chronic AC w/ warfarin, JOSE, NIKKI on BiPAP, anxiety, anemia of chronic disease, lymphedema, chronic venous insufficiency, and recent left 3rd toe venous ulcer who presented to the ED with worsening abdominal pain and diarrhea. Pt had a negative C diff outpatient and was started on Lomotil for symptom control. However, after starting, she noted new-onset abdominal pain which has gradually worsened. Due to the severity of the pain, she presented to the ED. C. difficile colitis --CT ABD:Mild stranding adjacent to the distal descending and sigmoid colon with colonic diverticulosis. The findings favor a mild acute diverticulitis. However, a nonspecific colitis could appear similar given apparent wall thickening of the transverse colon and descending colon. No free air or abscess. No bowel obstruction. Stable biliary ductal dilatation likely related to cholecystectomy. Small hiatal hernia. -- Stool studies positive for C. difficile -- Continue p.o. vancomycin Monitor renal function, electrolytes, volume status Continue isolation precautions Tolerating regular diet Patient feels uncomfortable to be discharged home today as she lives alone Hypokalemia Hypomagnesemia Secondary to GI losses Replete electrolytes as needed Monitor Chronic lymphedema/venous insufficiency Resume Bumex at reduced dose 1 mg twice daily Monitor volume status closely Generalized weakness Secondary to above PT OT Chronic troponin elevation Echo showed no wall motion abnormality (2) Hypokalemia: (3) Hypomagnesemia: (4) Chronic anticoagulation: Plan: INR therapeutic Monitor INR: 2.8 today Continue Coumadin (5) NIKKI (obstructive sleep apnea): Plan: Continue BiPAP at bedtime (6) Venous ulcer of left leg: Plan: Continue wound care Follow-up with podiatry as outpatient (7) Hypothyroidism: Plan: Continue levothyroxine (8) JOSE (generalized anxiety disorder): Plan: Continue home medications (9) HTN (hypertension): Plan: Continue Coreg (10) CKD (chronic kidney disease), stage III: Plan: Renal function at baseline Monitor (11) Anemia of chronic disease: (12) Restless leg syndrome: Plan: Continue pramipexole Plan Morbid Obesity BMI 51 DVT Px: On Coumadin Code Status Full Code Disposition Home as able Offered home health: Patient prefers to contemplate Admission and Anticipated Discharge Date Admission Date: May 02, 2023 Subjective Patient is seen and examined at bedside Patient states having increased leg swelling/seepage Still having diarrhea Abdominal pain resolved Tolerating regular diet Denies any chest pain, dyspnea, dizziness, nausea, vomiting Review of Systems Review of Systems: All systems reviewed & are unremarkable except as noted in Subjective Physical Exam Physical Exam: Physical Exam: Vitals signs as noted above General Appearance:Morbidly Obese, no apparent distress Head: normocephalic, Atraumatic Eyes: normal inspection, EOMI Neck: supple, Trachea midline Respiratory/Chest: Normal breath sounds, CTA, No accessory muscle use Cardiovascular: S1, S2, No murmur Abdomen/GI:Soft, Non tender, Bowel sounds present Extremities/Musculoskeletal:normal inspection, no edema, 3rd L toe plantar wound Neurologic/Psych:AAOX3, grossly no focal neurological deficits Skin: normal color, warm Results & Data Results & Data Vital Signs (Past 12 Hours) Vital Signs Temp Pulse Resp BP Pulse Ox O2 Del Method 05/05/23 15:03 36.8 C 64 18 146/87 H 96 Room Air 05/05/23 07:45 Room Air 05/05/23 07:17 36.7 C 60 18 157/88 H 96 Room Air Laboratory Results Short CBC 05/05/23 Range/Units 07:06 WBC 3.87 L (4.8-10.8) K/ul Hgb 11.5 L (12.0-16.0) g/dl Hct 34.2 L (37.0-47.0) % Plt Count 133 (130-400) K/uL BMP 05/05/23 07:06 Sodium 137 Potassium 3.9 Chloride 108 H Carbon Dioxide 23 BUN 7 Creatinine 0.67 Glucose 100 H Calcium 9.4
[2023-05-05] MEDS: WARFARIN SOD 5 MG TAB PO SCH (17:02)
[2023-05-05] MEDS: AMITRIPTYLINE HCL 25 MG TAB PO SCH (20:48)
[2023-05-05] MEDS: PRAMIPEXOLE DIHYDROCHLO 0.5 MG TAB PO SCH (20:51)
[2023-05-05] MEDS: PANTOprazole 40 MG TAB PO SCH (20:51)
[2023-05-05] MEDS: CLOTRIMAZOLE VAGINAL CR 7 APPLN/45 GM TUBE PV SCH (20:52)
[2023-05-06] MEDS: ACETAMINOPHEN 325 MG TAB PO PRN ×3 (00:02→19:53)
[2023-05-06] MEDS: VANCOMYCIN HCL 125 MG/2.5ML SOLN PO SCH ×4 (05:36→22:55)
[2023-05-06] MEDS: RASPBERRY SYRUP 5 ML UDP PO SCH ×4 (05:36→22:55)
[2023-05-06] MEDS: LEVOTHYROXINE SODIUM 125 MCG TABLET PO SCH (05:37)
[2023-05-06 08:22] LABS: BUN Creatinine Ratio 14.1 (10-20); Creatinine Clr Calc Pharmacy 68.2 ml/min; Est GFR (African American) 83.2 ml/min; Est GFR (Non-African American) 71.8 ml/min; Potassium 3.8 mmol/L (3.5-5.1)
[2023-05-06 08:24] LABS: INR 2.7 (0.9-1.1); Prothrombin Time 27.7 Seconds (9.0-12.0)
--- NOTE | 2023-05-06 08:58 | Hospitalist Progress Note ---
Date of Service May 06, 2023 Assessment & Plan (1) Clostridium difficile colitis: Plan: Recent antibiotics x 1 month for a foot infection prior to onset of cdiff colitis and diarrhea for another few weeks. Has chronic loose stools at baseline and takes colestipol for that. We discussed abx and PPI can contribute to this. She prefers to stop the PPI altogether and understands the reasoning behind the cipro/flagyl for possible diverticulitis. Cont vanc through abx course. One dose of Imodium for ongoing diarrhea and colestipol. (2) Acute diverticulitis: Plan: Seen on initial CT scan of abd/pel with no improvement after treatment for c difff infection. Poss acute diverticulitis given ongoing localized LLQ pain that is persistent. Starting trial of Cipro/flagyl today. Monitor for improvement. (3) Hypokalemia: Plan: resolved (4) Hypomagnesemia: Plan: resolved (5) Chronic anticoagulation: Plan: INR therapeutic Monitor INR: 2.8 today Continue Coumadin (6) Lymphedema: Plan: chronic, stable. will increase Bumex to full dose. Cont following with outpatient podiatry and wound care as needed. (7) NIKKI (obstructive sleep apnea): Plan: chronic, stable. Continue BiPAP at bedtime (8) Venous ulcer of left leg: Plan: chronic, Continue wound care Follow-up with podiatry as outpatient (9) Hypothyroidism: Plan: chronic, stable. Continue levothyroxine (10) JOSE (generalized anxiety disorder): Plan: chronic, stable. Continue home medications (11) HTN (hypertension): Plan: chronic, slightly uncontrolled at 172 sytolic this am, however, this was taken when she had just come back from the bathroom after a "large mess". Continue Coreg and her Bumex was restarted at 50%. Cont to monitor. (12) CKD (chronic kidney disease), stage III: Plan: chronic, Renal function at baseline Monitor (13) Anemia of chronic disease: Plan: chronic, stable. H/H around baseline and no evidence of acute bleeding. (14) Restless leg syndrome: Plan: chronic, controlled on home pramipexole (15) Morbid obesity with BMI of 50.0-59.9, adult: Plan: Lifestyle changes recommended Warfarin for DVT proph Full Code Dispo- to home when LLQ pain improved with trial of abx starting today. Likely won't be able to see a clear improvement until 2 days from now (tuesday) [facility] Admission and Anticipated Discharge Date Admission Date: May 02, 2023 Subjective 78 yo F admitted for c diff colitis with diarrhea reports still drained and fatigued tolerating PO Still with two loos BMs this am Still reporting acute lower left abdominal pain that is very localized and corresponds to ?area of acute diverticulitis from initial CT scan. Review of Systems Review of Systems: All systems were otherwise reviewed and negative except as noted above. Physical Exam Physical Exam: CONSTITUTIONAL: obese, vitals as above, generally well-appearing, NAD EYES: normal conjunctivae, no scleral icterus ENT: external ear and nose normal, MMM NECK: trachea midline RESPIRATORY: clear to auscultation bilaterally, no crackles, rales or wheezes, normal respiratory effort CARDIOVASCULAR: regular rate and rhythm, S1 and 2 heard without murmurs, gallops or rubs, no JVD, lipidemia on bilateral lower extremities with Rajat wrap around LLE CHEST: inspection of chest was normal GASTROINTESTINAL: soft, TTP in LLQ, ND, no guarding MUSCULOSKELETAL: generalized weakness with no gross focal deficits. Head is normocephalic and atraumatic SKIN: warm and dry NEUROLOGIC: CN 2-12 grossly intact, no sensory deficit, normal cognition, normal speech PSYCHIATRIC: alert cooperative and oriented to person, place and time. Euthymic mood, makes good eye contact, language grossly intact, recent and remote memory grossly intact. Results & Data Results & Data Vital Signs (Past 12 Hours) Vital Signs Temp Pulse Resp BP Pulse Ox O2 Del Method 05/06/23 07:52 36.9 C 61 20 172/97 H 95 Room Air Laboratory Results [facility] 05/06/23 07:27 Sodium 138 Potassium 3.8 Chloride 107 Carbon Dioxide 25 BUN 11 Creatinine 0.78 Glucose 96 Calcium 9.0 Medications Administered Current Inpatient Medications Acetaminophen (Acetaminophen 325 Mg Tab) 650 mg PO Q4H PRN PRN Reason: Pain or Fever Stop: 06/01/23 13:00 Last Admin: 05/06/23 00:02 Dose: 650 mg Amitriptyline HCl (Amitriptyline Hcl 25 Mg Tab) 25 mg PO HS DOMINIQUE Stop: 06/01/23 20:59 Last Admin: 05/05/23 20:48 Dose: 25 mg Bumetanide (Bumetanide 1 Mg Tab) 1 mg PO [id number] DOMINIQUE Stop: 06/04/23 10:44 Last Admin: 05/05/23 17:03 Dose: 1 mg Carvedilol (Carvedilol 12.5 Mg Tab) 12.5 mg PO BID DOMINIQUE Stop: 06/01/23 20:59 Last Admin: 05/05/23 20:48 Dose: 12.5 mg Clonazepam (Clonazepam 1 Mg Tab) 1 mg PO HS PRN PRN Reason: RLS Stop: 06/01/23 13:17 Last Admin: 05/05/23 01:17 Dose: 1 mg Clotrimazole (Clotrimazole Vaginal Cr 7 Appln/45 Gm Tube) 1 appln PV HS DOMINIQUE Stop: 05/09/23 20:59 Last Admin: 05/05/23 20:52 Dose: Not Given Cyanocobalamin (Cyanocobalamin (B-12) 500 Mcg Tablet) 1,000 mcg PO DAILY DOMINIQUE Stop: 06/02/23 08:59 Last Admin: 05/05/23 07:59 Dose: 1,000 mcg Gabapentin (Gabapentin 100 Mg Cap) 100 mg PO TID DOMINIQUE Stop: 06/01/23 13:59 Last Admin: 05/05/23 20:47 Dose: 100 mg Levothyroxine Sodium (Levothyroxine Sodium 125 Mcg Tablet) 125 mcg PO DAILYBB [facility] Stop: 06/02/23 06:29 Last Admin: 05/06/23 05:37 Dose: 125 mcg Lorazepam (Lorazepam 0.5 Mg Tab) 0.5 mg PO TID PRN PRN Reason: Anxiety Stop: 06/01/23 13:17 Last Admin: 05/03/23 20:01 Dose: 0.5 mg Pantoprazole Sodium (Pantoprazole 40 Mg Tab) 40 mg PO BID DOMINIQUE Stop: 06/04/23 20:59 Last Admin: 05/05/23 20:51 Dose: 40 mg Potassium Chloride (Potassium Chloride 10 Meq Tabcr) 10 meq PO BID DOMINIQUE Stop: 06/01/23 20:59 Last Admin: 05/05/23 21:01 Dose: 10 meq Pramipexole Dihydrochloride (Pramipexole Dihydrochlo 0.5 Mg Tab) 0.5 mg PO HS DOMINIQUE Stop: 06/01/23 20:59 Last Admin: 05/05/23 20:51 Dose: 0.5 mg Pramipexole Dihydrochloride (Pramipexole Dihydrochlo 0.25 Mg Tab) 0.25 mg PO DAILY@1330 [facility] Stop: 06/03/23 13:29 Last Admin: 05/05/23 10:06 Dose: 0.25 mg Raspberry (Raspberry Syrup 5 Ml Udp) 5 ml PO Q6 [facility] Stop: 05/12/23 17:59 Last Admin: 05/06/23 05:36 Dose: 5 ml Saccharomyces Boulardii (Saccharomyces Boulardii 250 Mg Cap) 250 mg PO BID [facility] Stop: 06/01/23 20:59 Last Admin: 05/05/23 20:49 Dose: 250 mg Vancomycin HCl (Vancomycin Hcl 125 Mg/2.5ml Soln) 125 mg PO Q6 [facility] Stop: 05/12/23 17:59 Last Admin: 05/06/23 05:36 Dose: 125 mg Warfarin Sodium (Warfarin Sod 5 Mg Tab) 5 mg PO SuTuThSa@1600 [facility] Stop: 06/02/23 15:59 Last Admin: 05/05/23 17:02 Dose: 5 mg Warfarin Sodium (Warfarin Sod 2.5 Mg Tab) 2.5 mg PO MOWEFR@1600 [facility] Stop: 06/01/23 15:59 Last Admin: 05/04/23 17:08 Dose: 2.5 mg
[2023-05-06] MEDS: carvediloL 12.5 MG TAB PO SCH ×2 (09:16→20:53)
[2023-05-06] MEDS: BUMETANIDE 1 MG TAB PO SCH ×2 (09:16→16:49)
[2023-05-06] MEDS: GABAPENTIN 100 MG CAP PO SCH ×3 (09:17→20:53)
[2023-05-06] MEDS: PANTOprazole 40 MG TAB PO SCH (09:17)
[2023-05-06] MEDS: SACCHAROMYCES BOULARDII 250 MG CAP PO SCH ×2 (09:17→20:53)
[2023-05-06] MEDS: CYANOCOBALAMIN (B-12) 500 MCG TABLET PO SCH (09:18)
[2023-05-06] MEDS: POTASSIUM CHLORIDE 10 MEQ TABCR PO SCH ×2 (09:23→20:53)
[2023-05-06] MEDS ORDERED: LOPERAMIDE HCL 2 MG CAP PO STA (10:26)
[2023-05-06] MEDS ORDERED: CALCIUM CARBONATE 500 MG CHEWABLE TAB PO PRN (10:27)
[2023-05-06] MEDS ORDERED: FAMOTIDINE 20 MG in SYRINGE 3 ML IV PRN (10:27)
[2023-05-06] MEDS: COLESTIPOL HCL 1 GM TAB PO SCH ×2 (11:34→22:55)
[2023-05-06] MEDS: metroNIDAZOLE 500 MG/100 ML BAG IV SCH ×2 (12:02→17:46)
[2023-05-06] MEDS: CIPROFLOXACIN / D5W 400 MG/200 ML BAG IV SCH ×2 (13:08→22:55)
[2023-05-06] MEDS: PRAMIPEXOLE DIHYDROCHLO 0.25 MG TAB PO SCH (13:09)
[2023-05-06] MEDS: WARFARIN SOD 2.5 MG TAB PO SCH (15:55)
[2023-05-06] MEDS: AMITRIPTYLINE HCL 25 MG TAB PO SCH (20:53)
[2023-05-06] MEDS: PRAMIPEXOLE DIHYDROCHLO 0.5 MG TAB PO SCH (20:54)
[2023-05-06] MEDS: CLOTRIMAZOLE VAGINAL CR 7 APPLN/45 GM TUBE PV SCH (20:55)
[2023-05-07] MEDS: metroNIDAZOLE 500 MG/100 ML BAG IV SCH ×3 (02:37→18:21)
[2023-05-07] MEDS: ACETAMINOPHEN 325 MG TAB PO PRN ×3 (03:51→23:56)
[2023-05-07] MEDS: PRAMIPEXOLE DIHYDROCHLO 0.25 MG TAB PO SCH (05:45)
[2023-05-07] MEDS: LEVOTHYROXINE SODIUM 125 MCG TABLET PO SCH (05:45)
[2023-05-07] MEDS: VANCOMYCIN HCL 125 MG/2.5ML SOLN PO SCH ×4 (05:45→23:54)
[2023-05-07] MEDS: RASPBERRY SYRUP 5 ML UDP PO SCH ×4 (05:45→23:54)
[2023-05-07 07:47] LABS: Hematocrit (blood only) 34.4 % (37.0-47.0); Hemoglobin 11.5 g/dl (12.0-16.0); Mean Corpuscular Hemoglobin 30.6 pg (25.0-34.0); Mean Corpuscular Hgb Conc 33.4 g/dL (32.0-36.0); Mean Corpuscular Volume 91.5 fL (80.0-100.0); Mean Platelet Volume 12.1 fL (9.4-12.4); Platelet Count 124 K/uL (130-400); RDW Coefficient of Variation 14.7 % (11.5-14.5); RDW Standard Deviation 49.3 fL (36.4-46.3); Red Blood Count 3.76 M/uL (4.20-5.40); White Blood Count 4.21 K/ul (4.8-10.8)
[2023-05-07 08:04] LABS: BUN Creatinine Ratio 15.5 (10-20); Creatinine Clr Calc Pharmacy 63.3 ml/min; Est GFR (African American) 76.1 ml/min; Est GFR (Non-African American) 65.6 ml/min
[2023-05-07 08:14] LABS: INR 3.1 (0.9-1.1); Prothrombin Time 31.6 Seconds (9.0-12.0)
[2023-05-07] MEDS: GABAPENTIN 100 MG CAP PO SCH ×3 (08:19→20:19)
[2023-05-07] MEDS: BUMETANIDE 1 MG TAB PO SCH ×2 (08:20→16:17)
[2023-05-07] MEDS: carvediloL 12.5 MG TAB PO SCH ×2 (08:20→20:17)
[2023-05-07] MEDS: SACCHAROMYCES BOULARDII 250 MG CAP PO SCH ×2 (08:21→20:19)
[2023-05-07] MEDS: CYANOCOBALAMIN (B-12) 500 MCG TABLET PO SCH (08:21)
[2023-05-07] MEDS: POTASSIUM CHLORIDE 10 MEQ TABCR PO SCH ×2 (08:24→20:16)
[2023-05-07] MEDS: COLESTIPOL HCL 1 GM TAB PO SCH ×2 (09:33→21:54)
--- NOTE | 2023-05-07 10:04 | Hospitalist Progress Note ---
Date of Service May 07, 2023 Assessment & Plan (1) Clostridium difficile colitis: Plan: Recent antibiotics x 1 month for a foot infection prior to onset of cdiff colitis and diarrhea for another few weeks. Has chronic loose stools at baseline and takes colestipol for that. We discussed abx and PPI can contribute to this. She prefers to stop the PPI altogether and understands the reasoning behind the cipro/flagyl for possible diverticulitis. Cont vanc through abx course. One dose of Imodium for ongoing diarrhea and colestipol improved symptoms overnight. Continue Cipro Flagyl IV for 1 more day with conversion to p.o. for treatment of acute diverticulitis. (2) Acute diverticulitis: Plan: Seen on initial CT scan of abd/pel with no improvement after treatment for c difff infection. Poss acute diverticulitis given ongoing localized LLQ pain that is persistent. Continue Cipro Flagyl as above. (3) Hypokalemia: Plan: resolved (4) Hypomagnesemia: Plan: resolved (5) Chronic anticoagulation: Plan: INR therapeutic Monitor INR: 2.8 today Continue Coumadin (6) Lymphedema: Plan: chronic, stable. will increase Bumex to full dose. Cont following with outpatient podiatry and wound care as needed. (7) NIKKI (obstructive sleep apnea): Plan: chronic, stable. Continue BiPAP at bedtime (8) Venous ulcer of left leg: Plan: chronic, Continue wound care Follow-up with podiatry as outpatient (9) Hypothyroidism: Plan: chronic, stable. Continue levothyroxine (10) JOSE (generalized anxiety disorder): Plan: chronic, stable. Continue home medications (11) HTN (hypertension): Plan: chronic, improved. Continue Coreg and Bumex per home regimen. (12) CKD (chronic kidney disease), stage III: Plan: chronic, Renal function at baseline Monitor (13) Anemia of chronic disease: Plan: chronic, stable. H/H around baseline and no evidence of acute bleeding. (14) Restless leg syndrome: Plan: chronic, controlled on home pramipexole (15) Morbid obesity with BMI of 50.0-59.9, adult: Plan: Lifestyle changes recommended Warfarin for DVT proph Full Code Dispo- to home when LLQ pain improved I spent a total of60 minutes coordinating, documenting, and providing care for this patient excluding time spent in the performance of separately billed services DO Lili Wagner Hospitalist Admission and Anticipated Discharge Date Admission Date: May 02, 2023 Subjective 78 yo F admitted for c diff colitis with diarrhea reports still drained and fatigued tolerating PO BMs have improved LLQ pain has improved on abx Review of Systems Review of Systems: All systems reviewed negative except as indicated above. Physical Exam Physical Exam: CONSTITUTIONAL: obese, vitals as above, generally well-appearing, NAD EYES: normal conjunctivae, no scleral icterus ENT: external ear and nose normal, MMM NECK: trachea midline RESPIRATORY: clear to auscultation bilaterally, no crackles, rales or wheezes, normal respiratory effort CARDIOVASCULAR: regular rate and rhythm, S1 and 2 heard without murmurs, gallops or rubs, no JVD, lipidemia on bilateral lower extremities with Rajat wrap around LLE CHEST: inspection of chest was normal GASTROINTESTINAL: soft, TTP in LLQ, ND, no guarding MUSCULOSKELETAL: generalized weakness with no gross focal deficits. Head is normocephalic and atraumatic SKIN: warm and dry NEUROLOGIC: CN 2-12 grossly intact, no sensory deficit, normal cognition, normal speech PSYCHIATRIC: alert cooperative and oriented to person, place and time. Euthymic mood, makes good eye contact, language grossly intact, recent and remote memory grossly intact. Results & Data Results & Data Vital Signs (Past 12 Hours) Vital Signs Temp Pulse Resp BP Pulse Ox O2 Del Method 05/07/23 07:27 36.4 C L 61 16 125/77 96 Room Air Laboratory Results Short CBC 05/07/23 Range/Units 07:13 WBC 4.21 L (4.8-10.8) K/ul Hgb 11.5 L (12.0-16.0) g/dl Hct 34.4 L (37.0-47.0) % Plt Count 124 L (130-400) K/uL BMP 05/07/23 07:13 Sodium 137 Potassium 4.0 Chloride 104 Carbon Dioxide 27 BUN 13 Creatinine 0.84 Glucose 108 H Calcium 9.0 Medications Administered Current Inpatient Medications Acetaminophen (Acetaminophen 325 Mg Tab) 650 mg PO Q4H PRN PRN Reason: Pain or Fever Stop: 06/01/23 13:00 Last Admin: 05/07/23 03:51 Dose: 650 mg Amitriptyline HCl (Amitriptyline Hcl 25 Mg Tab) 25 mg PO HS DOMINIQUE Stop: 06/01/23 20:59 Last Admin: 05/06/23 20:53 Dose: 25 mg Bumetanide (Bumetanide 1 Mg Tab) 2 mg PO BID17 DOMINIQUE Stop: 06/05/23 16:59 Last Admin: 05/07/23 08:20 Dose: 2 mg Calcium Carbonate (Calcium Carbonate 500 Mg Chewable Tab) 1,000 mg PO Q6H PRN PRN Reason: Indigestion Stop: 06/05/23 10:26 Carvedilol (Carvedilol 12.5 Mg Tab) 12.5 mg PO BID DOMINIQUE Stop: 06/01/23 20:59 Last Admin: 05/07/23 08:20 Dose: 12.5 mg Clonazepam (Clonazepam 1 Mg Tab) 1 mg PO HS PRN PRN Reason: RLS Stop: 06/01/23 13:17 Last Admin: 05/05/23 01:17 Dose: 1 mg Clotrimazole (Clotrimazole Vaginal Cr 7 Appln/45 Gm Tube) 1 appln PV HS DOMINIQUE Stop: 05/09/23 20:59 Last Admin: 05/06/23 20:55 Dose: Not Given Colestipol HCl (Colestipol Hcl 1 Gm Tab) 2 gm PO DAILY@1000,2200 DOMINIQUE Stop: 06/05/23 10:24 Last Admin: 05/07/23 09:33 Dose: 2 gm Cyanocobalamin (Cyanocobalamin (B-12) 500 Mcg Tablet) 1,000 mcg PO DAILY DOMINIQUE Stop: 06/02/23 08:59 Last Admin: 05/07/23 08:21 Dose: 1,000 mcg Gabapentin (Gabapentin 100 Mg Cap) 100 mg PO TID DOMINIQUE Stop: 06/01/23 13:59 Last Admin: 05/07/23 08:19 Dose: 100 mg Ciprofloxacin (Cipro / D5w) 400 mg in 200 mls @ 100 mls/hr IV Q12H [facility]; Protocol Stop: 05/16/23 10:29 Last Infusion: 05/07/23 00:59 Dose: Infused Metronidazole (Flagyl) 500 mg in 100 mls @ 100 mls/hr IV Q8H [facility]; Protocol Stop: 05/16/23 10:29 Last Admin: 05/07/23 09:33 Dose: 100 mls/hr Famotidine 20 mg/ Syringe 5 mls @ 2.5 mls/min IV Q12H PRN PRN Reason: indigestion Stop: 06/05/23 10:29 Levothyroxine Sodium (Levothyroxine Sodium 125 Mcg Tablet) 125 mcg PO DAILYBB [facility] Stop: 06/02/23 06:29 Last Admin: 05/07/23 05:45 Dose: 125 mcg Lorazepam (Lorazepam 0.5 Mg Tab) 0.5 mg PO TID PRN PRN Reason: Anxiety Stop: 06/01/23 13:17 Last Admin: 05/03/23 20:01 Dose: 0.5 mg Potassium Chloride (Potassium Chloride 10 Meq Tabcr) 10 meq PO BID [facility] Stop: 06/01/23 20:59 Last Admin: 05/07/23 08:24 Dose: 10 meq Pramipexole Dihydrochloride (Pramipexole Dihydrochlo 0.5 Mg Tab) 0.5 mg PO HS [facility] Stop: 06/01/23 20:59 Last Admin: 05/06/23 20:54 Dose: 0.5 mg Pramipexole Dihydrochloride (Pramipexole Dihydrochlo 0.25 Mg Tab) 0.25 mg PO DAILY@1330 [facility] Stop: 06/06/23 05:39 Last Admin: 05/07/23 05:45 Dose: 0.25 mg Raspberry (Raspberry Syrup 5 Ml Udp) 5 ml PO Q6 [facility] Stop: 05/12/23 17:59 Last Admin: 05/07/23 05:45 Dose: 5 ml Saccharomyces Boulardii (Saccharomyces Boulardii 250 Mg Cap) 250 mg PO BID [facility] Stop: 06/01/23 20:59 Last Admin: 05/07/23 08:21 Dose: 250 mg Vancomycin HCl (Vancomycin Hcl 125 Mg/2.5ml Soln) 125 mg PO Q6 [facility] Stop: 05/12/23 17:59 Last Admin: 05/07/23 05:45 Dose: 125 mg Warfarin Sodium (Warfarin Sod 5 Mg Tab) 5 mg PO SuTuThSa@1600 [facility] Stop: 06/02/23 15:59 Last Admin: 05/05/23 17:02 Dose: 5 mg Warfarin Sodium (Warfarin Sod 2.5 Mg Tab) 2.5 mg PO MOWEFR@1600 [facility] Stop: 06/01/23 15:59 Last Admin: 05/06/23 15:55 Dose: 2.5 mg
[2023-05-07] MEDS: CIPROFLOXACIN / D5W 400 MG/200 ML BAG IV SCH ×2 (10:42→21:54)
[2023-05-07] MEDS: WARFARIN SOD 5 MG TAB PO SCH (16:17)
[2023-05-07] MEDS: CLOTRIMAZOLE VAGINAL CR 7 APPLN/45 GM TUBE PV SCH (20:16)
[2023-05-07] MEDS: AMITRIPTYLINE HCL 25 MG TAB PO SCH (20:18)
[2023-05-07] MEDS: PRAMIPEXOLE DIHYDROCHLO 0.5 MG TAB PO SCH (20:35)
[2023-05-07] MEDS: NYSTATIN POWDER 15GM BTL EXT PRN (21:54)
[2023-05-08] MEDS: metroNIDAZOLE 500 MG/100 ML BAG IV SCH ×3 (03:12→17:56)
[2023-05-08] MEDS: NYSTATIN POWDER 15GM BTL EXT PRN (04:25)
[2023-05-08] MEDS: LEVOTHYROXINE SODIUM 125 MCG TABLET PO SCH (05:09)
[2023-05-08] MEDS: RASPBERRY SYRUP 5 ML UDP PO SCH ×3 (05:10→17:56)
[2023-05-08] MEDS: VANCOMYCIN HCL 125 MG/2.5ML SOLN PO SCH ×3 (05:10→17:56)
[2023-05-08 06:24] LABS: Hematocrit (blood only) 37.7 % (37.0-47.0); Hemoglobin 12.9 g/dl (12.0-16.0); Mean Corpuscular Hemoglobin 30.6 pg (25.0-34.0); Mean Corpuscular Hgb Conc 34.2 g/dL (32.0-36.0); Mean Corpuscular Volume 89.3 fL (80.0-100.0); Mean Platelet Volume 11.9 fL (9.4-12.4); Platelet Count 134 K/uL (130-400); RDW Coefficient of Variation 14.6 % (11.5-14.5); RDW Standard Deviation 47.8 fL (36.4-46.3); Red Blood Count 4.22 M/uL (4.20-5.40); White Blood Count 4.21 K/ul (4.8-10.8)
[2023-05-08 06:42] LABS: BUN Creatinine Ratio 15.9 (10-20); Calcium 9.3 mg/dl (8.6-10.3); Creatinine Clr Calc Pharmacy 60.4 ml/min; Est GFR (African American) 71.9 ml/min; Est GFR (Non-African American) 62.1 ml/min; Magnesium 1.5 mg/dl (1.7-2.4); Potassium 3.6 mmol/L (3.5-5.1)
[2023-05-08 06:52] LABS: INR 3.4 (0.9-1.1); Prothrombin Time 34.9 Seconds (9.0-12.0)
[2023-05-08] MEDS: CYANOCOBALAMIN (B-12) 500 MCG TABLET PO SCH (09:13)
[2023-05-08] MEDS: GABAPENTIN 100 MG CAP PO SCH ×3 (09:14→19:27)
[2023-05-08] MEDS: carvediloL 12.5 MG TAB PO SCH ×2 (09:14→19:26)
[2023-05-08] MEDS: SACCHAROMYCES BOULARDII 250 MG CAP PO SCH ×2 (09:14→19:29)
[2023-05-08] MEDS: BUMETANIDE 1 MG TAB PO SCH ×2 (09:15→17:55)
[2023-05-08] MEDS: POTASSIUM CHLORIDE 10 MEQ TABCR PO SCH ×2 (09:21→22:12)
[2023-05-08] MEDS: ACETAMINOPHEN 325 MG TAB PO PRN (09:21)
[2023-05-08] MEDS: MAGNESIUM SULFATE / D5W 1 GM/100 ML BAG IV SCH ×2 (09:36→11:38)
[2023-05-08] MEDS: CIPROFLOXACIN / D5W 400 MG/200 ML BAG IV SCH ×2 (13:33→22:12)
[2023-05-08] MEDS: PRAMIPEXOLE DIHYDROCHLO 0.25 MG TAB PO SCH ×2 (13:44→19:28)
--- NOTE | 2023-05-08 15:00 | Hospitalist Progress Note ---
Date of Service May 08, 2023 Assessment & Plan (1) Clostridium difficile colitis: (2) Acute diverticulitis: (3) Hypokalemia: (4) Hypomagnesemia: (5) Chronic anticoagulation: (6) Lymphedema: (7) NIKKI (obstructive sleep apnea): (8) Venous ulcer of left leg: (9) Hypothyroidism: (10) JOSE (generalized anxiety disorder): (11) HTN (hypertension): (12) CKD (chronic kidney disease), stage III: (13) Anemia of chronic disease: (14) Restless leg syndrome: (15) Morbid obesity with BMI of 50.0-59.9, adult: Plan 78-year-old female with morbid obesity admitted with C. difficile colitis and mild acute diverticulitis CT A/P- Mild stranding adjacent to the distal descending and sigmoid colon with colonic diverticulosis. The findings favor a mild acute diverticulitis. However, a nonspecific colitis could appear similar given apparent wall thickening of the transverse colon and descending colon. No free air or abscess. C. difficile colitis-first episode. Improving on p.o. Vanco started on 05/02. Continue p.o. Vanco beyond 1 week of completion of Cipro/flagyl. Acute diverticulitis-CT abdomen pelvis shows mild acute diverticulitis. On Cipro/Flagyl since 05/06 Hypomagnesia-repleted, recheck in a.m. H/o PE on chronic anticoagulation on Coumadin- currently supratherapeutic INR- INR trending up, currently 3.4. We will hold Coumadin dose today and check INR tomorrow for further management. INR affected due to antibiotics and will need closer monitoring Chronic HFrEF-continue Bumex dose increased to 2 mg twice daily per nephro, potassium supplement Bilateral lower extremity lymphedema-chronic, stable. Continue increased dose of Bumex and potassium supplementation per nephrology and outpatient follow-up with nephro, podiatry and wound care as needed Acquired hypothyroidism-stable, continue Synthroid Generalized anxiety disorder-stable, continue home meds CKD 3b-renal function stable at baseline. Monitor with diuresis Restless leg syndrome-continue Mirapex Morbid obesity with BMI 51-weight loss recommended. Follow-up with PCP NIKKI on BiPAP hs-continue Admission and Anticipated Discharge Date Admission Date: May 02, 2023 Subjective Patient was seen and examined at bedside. She is doing better. She had 2 soft bowel movements today, 3 yesterday. No fever, chills, chest pain or shortness of breath nausea or vomiting. Tolerating diet well. States ambulating in the room without issues. She is hoping to go home tomorrow Review of Systems Review of Systems: All systems reviewed & are unremarkable except as noted in Subjective Physical Exam Physical Exam: General: Sitting comfortably in chair, not in distress, on room air HEENT: EOMI, DEION, MMM Chest: Clear breath sounds bilaterally, no wheezes or crackles CVS: Regular rate and rhythm, normal heart sounds, no murmur Abdomen: Soft, mild tenderness LLQ, not distended, normal bowel sounds Neuro: Awake, alert, oriented, conversing well, non focal Extremities: No cyanosis, clubbing. Chronic bilateral lymphedema with venous stasis change, right lower leg covered with wrap. Chronic left leg erythema Results & Data Results & Data Vital Signs (Past 12 Hours) Vital Signs Temp Pulse Resp BP Pulse Ox O2 Del Method 05/08/23 07:35 36.3 C L 65 18 136/79 98 Room Air
[2023-05-08] MEDS: CLOTRIMAZOLE VAGINAL CR 7 APPLN/45 GM TUBE PV SCH (19:26)
[2023-05-08] MEDS: AMITRIPTYLINE HCL 25 MG TAB PO SCH (19:27)
[2023-05-08] MEDS: PRAMIPEXOLE DIHYDROCHLO 0.5 MG TAB PO SCH (19:30)
[2023-05-08] MEDS: COLESTIPOL HCL 1 GM TAB PO SCH (22:12)
[2023-05-09] MEDS: RASPBERRY SYRUP 5 ML UDP PO SCH ×3 (00:03→12:19)
[2023-05-09] MEDS: VANCOMYCIN HCL 125 MG/2.5ML SOLN PO SCH ×3 (00:03→12:19)
[2023-05-09] MEDS: metroNIDAZOLE 500 MG/100 ML BAG IV SCH (02:38)
[2023-05-09] MEDS: LEVOTHYROXINE SODIUM 125 MCG TABLET PO SCH (06:01)
[2023-05-09 06:45] LABS: Hematocrit (blood only) 37.6 % (37.0-47.0); Hemoglobin 12.9 g/dl (12.0-16.0); Mean Corpuscular Hemoglobin 30.6 pg (25.0-34.0); Mean Corpuscular Hgb Conc 34.3 g/dL (32.0-36.0); Mean Corpuscular Volume 89.3 fL (80.0-100.0); Mean Platelet Volume 12.2 fL (9.4-12.4); Platelet Count 148 K/uL (130-400); RDW Coefficient of Variation 14.6 % (11.5-14.5); Red Blood Count 4.21 M/uL (4.20-5.40); White Blood Count 4.56 K/ul (4.8-10.8)
[2023-05-09 07:03] LABS: BUN Creatinine Ratio 15.9 (10-20); Creatinine Clr Calc Pharmacy 60.4 ml/min; Est GFR (African American) 71.9 ml/min; Est GFR (Non-African American) 62.1 ml/min; Magnesium 1.7 mg/dl (1.7-2.4); Phosphorus 3.2 mg/dl (2.5-4.9); Potassium 3.8 mmol/L (3.5-5.1)
[2023-05-09] MEDS: BUMETANIDE 1 MG TAB PO SCH (08:22)
[2023-05-09] MEDS: SACCHAROMYCES BOULARDII 250 MG CAP PO SCH (08:22)
[2023-05-09] MEDS: CYANOCOBALAMIN (B-12) 500 MCG TABLET PO SCH (08:23)
[2023-05-09] MEDS: COLESTIPOL HCL 1 GM TAB PO SCH (08:23)
[2023-05-09] MEDS: carvediloL 12.5 MG TAB PO SCH (08:23)
[2023-05-09] MEDS: GABAPENTIN 100 MG CAP PO SCH (08:24)
[2023-05-09] MEDS: POTASSIUM CHLORIDE 10 MEQ TABCR PO SCH (08:27)
[2023-05-09 09:10] LABS: INR 3.3 (0.9-1.1); Prothrombin Time 33.7 Seconds (9.0-12.0)
--- NOTE | 2023-05-09 11:09 | Discharge Summary ---
Date of Service May 09, 2023 Admission HPI Per Admitting Provider This is an 78 y/o female with HFpEF, CKD 3, HTN, history of PE, on chronic AC w/ warfarin, JOSE, NIKKI (poor BiPAP compliance), anxiety, anemia of chronic disease, lymphedema, chronic venous insufficiency, and recent left 3rd toe venous ulcer who presented to the ED today with worsening abdominal pain and diarrhea x 3 weeks. Pt reports onset of diarrhea on 04/16 and it has gradually worsened since then. Currently, she is having 5-10 episodes of large volume watery diarrhea per day with urgency, incontinence and nocturnal stooling. She denies N/V, fevers, chills, sweats, melena or hematochezia. She had a negative C diff test outpatient so PCP prescribed Lomotil for diarrhea, which she started on Tuesday and has been taking Q6 hrs since then. Yesterday, she started with abdominal pain, worse since 3 am today. Current pain is 5/10 (was 6/10 at worst). Loss of appetite - nothing to eat since breakfast yesterday. Also notes worsening of diarrhea with eating. Denies similar symptoms previously. Of note, pt was on two courses of Cipro in the last month for toe ulcer which grew Pseudomonas on culture. Following with podiatry and wound care. No dysuria, hematuria, urinary frequency, decreased urinary output. Denies cough, congestion, ST, runny nose, CP, SOB. Chronic headaches - no worse than usual. Taking Advil 2 tab daily (no relief with Tylenol). Admission Exam Per Admitting Provider Constitutional: well developed and well nourished; no acute distress Eyes: + anicteric sclerae ENMT: external ear and nose normal, oropharynx normal Neck: trachea midline Respiratory: no respiratory distress and no labored breathing Auscultation: lungs clear to auscultation bilaterally; no rales, no rhonchi and no wheezes Cardiovascular: Rate/Rhythm: regular rate and regular rhythm Vessels: radial pulses present Extremities: + edema Gastrointestinal (Abdomen): Inspection/Auscultation: normal bowel sounds; a bdomen not distended Percussion/Palpation: + abdomen tender (LLQ without guarding) and abdomen soft Musculoskeletal: Head/Neck/Chest: normocephalic, head atraumatic and neck supple Skin: left toe ulcer with dressing Neurologic: moves all extremities; not confused Psychiatric: Orientation: alert and oriented x 3 Affect: + anxious affect Principal Diagnosis C. difficile colitis, mild acute diverticulitis, anticoagulated on Coumadin Discharge Exam General: Sitting comfortably in chair, not in distress, on room air HEENT: EOMI, DEION, MMM Chest: Clear breath sounds bilaterally, no wheezes or crackles CVS: Regular rate and rhythm, normal heart sounds, no murmur Abdomen: Soft, nontender, not distended, normal bowel sounds Neuro: Awake, alert, oriented, conversing well, non focal Extremities: No cyanosis, clubbing. Chronic bilateral lymphedema with venous stasis change, right lower leg covered with wrap. Chronic left leg erythema Discharge Data Allergies Allergy/AdvReac Type Severity Reaction Status Date / Time No Known Allergies Allergy Verified 05/02/23 10:50 Consultations 05/02/23 10:14 ED Decision to Admit Stat Ordered Studies 05/02/23 08:08 CT abd pelvis wo con Stat Laboratory Results WBC 4.56 K/ul (4.8-10.8) L 05/09/23 06:04 RBC 4.21 M/uL (4.20-5.40) 05/09/23 06:04 Hgb 12.9 g/dl (12.0-16.0) 05/09/23 06:04 Hct 37.6 % (37.0-47.0) 05/09/23 06:04 MCV 89.3 fL (80.0-100.0) 05/09/23 06:04 MCH 30.6 pg (25.0-34.0) 05/09/23 06:04 MCHC 34.3 g/dL (32.0-36.0) 05/09/23 06:04 RDW Std Deviation 48.0 fL (36.4-46.3) H 05/09/23 06:04 RDW Coeff of Bertha 14.6 % (11.5-14.5) H 05/09/23 06:04 Plt Count 148 K/uL (130-400) 05/09/23 06:04 MPV 12.2 fL (9.4-12.4) 05/09/23 06:04 Immature Gran % (Auto) 0.3 % 05/05/23 07:06 Neut % (Auto) 70.7 % 05/05/23 07:06 Lymph % (Auto) 17.1 % 05/05/23 07:06 Louisa % (Auto) 9.3 % 05/05/23 07:06 Eos % (Auto) 2.3 % 05/05/23 07:06 Baso % (Auto) 0.3 % 05/05/23 07:06 Neut # (Auto) 2.74 K/uL (1.40-6.50) 05/05/23 07:06 Lymph # (Auto) 0.66 K/uL (1.2-3.4) L 05/05/23 07:06 Louisa # (Auto) 0.36 K/uL (0.11-0.59) 05/05/23 07:06 Eos # (Auto) 0.09 K/uL (0-0.50) 05/05/23 07:06 Baso # (Auto) 0.01 K/uL (0-0.2) 05/05/23 07:06 Immature Gran # (Auto) 0.01 K/uL (0.01-0.20) 05/05/23 07:06 PT 33.7 Seconds (9.0-12.0) H 05/09/23 08:27 INR 3.3 (0.9-1.1) H 05/09/23 08:27 Sodium 136 mmol/L (136-145) 05/09/23 06:04 Potassium 3.8 mmol/L (3.5-5.1) 05/09/23 06:04 Chloride 100 mmol/L (98-107) 05/09/23 06:04 Carbon Dioxide 29 mmol/L (21-32) 05/09/23 06:04 Anion Gap 7 (3-11) 05/09/23 06:04 BUN 14 mg/dl (6-23) 05/09/23 06:04 Creatinine 0.88 mg/dl (0.6-1.2) 05/09/23 06:04 Est Cr Clr Drug Dosing 60.4 ml/min 05/09/23 06:04 Est GFR ( Amer) 71.9 ml/min 05/09/23 06:04 Est GFR (Non-Af Amer) 62.1 ml/min 05/09/23 06:04 BUN/Creatinine Ratio 15.9 (10-20) 05/09/23 06:04 Glucose 110 mg/dl (70-99(Fasting)) H 05/09/23 06:04 Calcium 9.0 mg/dl (8.6-10.3) 05/09/23 06:04 Phosphorus 3.2 mg/dl (2.5-4.9) 05/09/23 06:04 Magnesium 1.7 mg/dl (1.7-2.4) 05/09/23 06:04 Total Bilirubin 0.5 mg/dl (0.2-1.0) 05/02/23 08:09 Direct Bilirubin 0.1 mg/dl (0-0.2) 05/02/23 08:09 AST 18 U/L (13-39) 05/02/23 08:09 ALT 12 U/L (7-52) 05/02/23 08:09 Alkaline Phosphatase 137 U/L (34-104) H 05/02/23 08:09 Troponin I High Sens 22.2 pg/ml (0-14) H 05/03/23 00:54 Total Protein 6.3 gm/dl (6.0-8.3) 05/02/23 08:09 Albumin 3.6 gm/dl (3.4-5.0) 05/02/23 08:09 Lipase 56 U/L (11-82) 05/02/23 08:09 Urine Color Yellow 05/02/23 09:12 Urine Appearance Clear (Clear) 05/02/23 09:12 Urine pH 5.5 (4.5-7.5) 05/02/23 09:12 Ur Specific [place] 1.006 (1.000-1.030) 05/02/23 09:12 Urine Protein Negative (Negative) 05/02/23 09:12 Urine Glucose (UA) Negative (Negative) 05/02/23 09:12 Urine Ketones Negative (Negative) 05/02/23 09:12 Urine Blood Trace (Negative) H 05/02/23 09:12 Urine Nitrite Negative (Negative) 05/02/23 09:12 Urine Bilirubin Negative (Negative) 05/02/23 09:12 Urine Urobilinogen Negative (Negative) 05/02/23 09:12 Ur Leukocyte Esterase Negative (Negative) 05/02/23 09:12 Urine WBC (Auto) 0 /hpf (0-5) 05/02/23 09:12 Urine RBC (Auto) 0-4 /hpf (0-4) 05/02/23 09:12 U Hyaline Cast (Auto) 0 /lpf (0-5) 05/02/23 09:12 U Epithel Cells (Auto) 0-5 /lpf (0-5) 05/02/23 09:12 Urine Bacteria (Auto) Negative (Negative) 05/02/23 09:12 Stl C. cayetanensis PCR Not Detected (NotDetected) 05/02/23 09:12 Stool Rotavirus A PCR Not Detected (NotDetected) 05/02/23 09:12 Stl Adenov F 40/41 PCR Not Detected (NotDetected) 05/02/23 09:12 Stool Astrovirus (PCR) Not Detected (NotDetected) 05/02/23 09:12 Stool Campylobacter PCR Not Detected (NotDetected) 05/02/23 09:12 Stl C. diff Tox B Gene Positive Cdiff Gene (Neg) H 05/02/23 09:12 Stl C.difficile Tox A&B Positive Cdiff Toxin (Negative) A* 05/02/23 09:12 Stool Cryptosporidium PCR Not Detected (NotDetected) 05/02/23 09:12 Stl E.coli Shiga Tox PCR Not Detected (NotDetected) 05/02/23 09:12 Stl Enterotoxigenic E PCR Not Detected (NotDetected) 05/02/23 09:12 Stool EPEC (PCR) Not Detected (NotDetected) 05/02/23 09:12 Stool EAEC (PCR) Not Detected (NotDetected) 05/02/23 09:12 Stl E. histolytica PCR Not Detected (NotDetected) 05/02/23 09:12 Stool Giardia Lamblia PCR Not Detected (NotDetected) 05/02/23 09:12 Stool Salmonella PCR Not Detected (NotDetected) 05/02/23 09:12 Stool Sapovirus (PCR) Not Detected (NotDetected) 05/02/23 09:12 Stl P. shigelloides PCR Not Detected (NotDetected) 05/02/23 09:12 Stl Shigella/EIEC PCR Not Detected (NotDetected) 05/02/23 09:12 St Y.enterocolitica PCR Not Detected (NotDetected) 05/02/23 09:12 Stool Vibrio (PCR) Not Detected (NotDetected) 05/02/23 09:12 Stl Vibrio cholerae PCR Not Detected (NotDetected) 05/02/23 09:12 Stl Norovirus GI/GII PCR Not Detected (NotDetected) 05/02/23 09:12 SARS-CoV-2, RNA, NAAT NEGATIVE (NEGATIVE) 05/02/23 10:25 Impressions Abdomen/Pelvis CT 05/02/23 08:08 CT OF THE ABDOMEN AND PELVIS WITHOUT CONTRAST CLINICAL HISTORY: diffuse lower abdominal pain x 3 weeks COMPARISON STUDY: CT of the abdomen pelvis June 13, 2021 and renal ultrasound July 16, 2022. TECHNIQUE: Axial images of the abdomen and pelvis were obtained without IV contrast. Images were reviewed in the axial, sagittal, and coronal planes. Automated exposure control was utilized for the study. A dose lowering technique was utilized adhering to the principles of ALARA. FINDINGS: Cardiomegaly and dilatation of the central pulmonary arteries is incidentally noted. There is a small hiatal hernia. There is no pneumatosis, free air or portal venous gas. No hepatic lesions are identified on this unenhanced exam. The gallbladder surgically absent. Common bile duct is dilated. This is similar to prior CT and likely related to cholecystectomy. Spleen, adrenal glands, kidneys and pancreas are unremarkable. There is no biliary or pancreatic ductal dilatation. There is no evidence for a bowel obstruction. Colonic diverticulosis is noted. There is mild stranding adjacent to the mid sigmoid colon. There is also mild stranding at the junction of the descending colon and sigmoid colon. Mild wall thickening of the transverse colon and descending colon is noted. This could be due to underdistention. There is no free air or abscess. The appendix is not visualized. There is no lymphadenopathy. Postoperative findings within the lumbosacral spine are noted. No acute fractures are noted. There are multilevel degenerative changes within the lower thoracic and lumbar spine. IMPRESSION: 1. Mild stranding adjacent to the distal descending and sigmoid colon with colonic diverticulosis. The findings favor a mild acute diverticulitis. However, a nonspecific colitis could appear similar given apparent wall thickening of the transverse colon and descending colon. No free air or abscess. 2. No bowel obstruction. 3. Stable biliary ductal dilatation likely related to cholecystectomy. 4. Small hiatal hernia. ACT 112: Negative or not required by law. Electronically signed by: Jim Snyder M.D. 05/02/2023 8:42 AM Hospital Course (1) Clostridium difficile colitis: (2) Acute diverticulitis: (3) Hypokalemia: (4) Hypomagnesemia: (5) Chronic anticoagulation: (6) Lymphedema: (7) NIKKI (obstructive sleep apnea): (8) Venous ulcer of left leg: (9) Hypothyroidism: (10) JOSE (generalized anxiety disorder): (11) HTN (hypertension): (12) CKD (chronic kidney disease), stage III: (13) Anemia of chronic disease: (14) Restless leg syndrome: (15) Morbid obesity with BMI of 50.0-59.9, adult: Plan 78-year-old female with morbid obesity admitted with C. difficile colitis and mild acute diverticulitis as evidenced on CT on admission. Patient started on oral vancomycin on 05/02. Cipro/Flagyl was added on 05/06 for diverticulitis. States her left abdominal pain has resolved and her bowel movements have slowed down. She would like to get discharged. Given her mild acute diverticulitis and rapid improvement, will do only a short course of Cipro Flagyl for total of 7 days as C diff seems to be the main driving factor here. Will extend course of oral vancomycin 1 week beyond completion of Cipro Flagyl. Recommended to follow-up with PCP closely for longer duration of oral vancomycin if symptoms completely resolved by then. She also had elevated INR in setting of antibiotics, recommended to hold Coumadin for the next 2 days and repeat INR and follow-up with PCP for further dosing recommendations on Coumadin. Home health was set up per case monitor. Recommended low fiber diet for the next 3 weeks and to follow-up with GI in 4 to 6 weeks for colonoscopy. Also recommended to return to the emergency if she has fever, chills, increasing abdominal pain or worsening diarrhea. She is comfortable and stable for discharge home. C. difficile colitis-first episode. Improving on p.o. Vanco started on 05/02. Continue p.o. Vanco beyond 1 week of completion of Cipro/flagyl. CT A/P- Mild stranding adjacent to the distal descending and sigmoid colon with colonic diverticulosis. The findings favor a mild acute diverticulitis. However, a nonspecific colitis could appear similar given apparent wall thickening of the transverse colon and descending colon. No free air or abscess. Mild acute diverticulitis-CT abdomen pelvis shows mild acute diverticulitis of left distal descending and sigmoid colon. On Cipro/Flagyl since 05/06-completing 1 week course as above Hypomagnesia-resolved H/o PE on chronic anticoagulation on Coumadin- currently supratherapeutic INR insetting of antibiotic-INR currently 3.3. Recommended to hold Coumadin until tomorrow and follow-up with PCP for repeat INR and further dosing adjustment accordingly Chronic HFrEF-continue Bumex dose increased to 2 mg twice daily per nephro along with potassium supplementation. F/u with nephro as OP with repeat BMP in a week Bilateral lower extremity lymphedema-chronic, stable. Continue increased dose of Bumex and potassium supplementation per nephrology and outpatient follow-up with nephro, podiatry and wound care as needed Acquired hypothyroidism-stable, continue Synthroid Generalized anxiety disorder-stable, continue home meds CKD 3b-renal function stable at baseline. Monitor with diuresis Restless leg syndrome-continue Mirapex Morbid obesity with BMI 51-weight loss recommended. Follow-up with PCP NIKKI on BiPAP hs-continue Total Time Total Time Spent Total Time Spent (In Minutes): 45 Discharge Plan Discharge Items Patient Disposition: Home - Home Health Services Reason For Visit: C. DIFF COLITIS, HYPOKALEMIA Discharge Diagnosis: C diff colitis, Acute mild diverticulitis, Anticoagulated on Coumadin Activity: Per Instructions section Non-emergency contact: Primary Care Provider and Squeezer Operator Call non-emergency contact if: you have any medication questions, your symptoms worsen, your pain is concerning for you and you have a fever Follow-up/Referrals: Tristan Conde MD [Primary Care Provider] - (Date & Time 05/13/2023 11:40 AM Provider Rossy De La Rosa MD [facility] ) Diet: Low Fiber Addtl Attending Provider Instructions: Continue cipro/flagyl as prescribed for 3 more days for your diverticulitis Continue oral vanco every 6 hours for 10 more days for your C diff. If your diarrhea recurs or persist, you will need a longer course. Follow up with your family doctor for the same Low fiber diet for the next 3 weeks Per nephrology, increase your bumex to 2 mg twice daily however, if you have bad diarrhea or poor oral intake, we recommend to hold bumex for the day until it is resolved so as to avoid dehydration and kidney injury. Follow up with nephrology in a week with repeat blood work BMP. If fever, chills, increasing abdominal pain or worsening diarrhea, please come back to the emergency. Follow up with GI doctor in the next 6 weeks to discuss colonoscopy considering your diverticulitis Recommend holding your coumadin at least for the next 2 days as your INR is still high and you are on antibiotics which will interfere with your INR Recommend checking your INR in 2-3 days and follow up with your family doctor for further coumadin adjustment Follow up with your family doctor Pending Studies at Discharge: No Stand-Alone Forms: My [facility] [place], Smoking Cessation Medications and DC Order Prescriptions: New ciprofloxacin HCl [Cipro] 500 mg tablet 500 mg PO BID 3 Days Qty: 6 0RF metronidazole 500 mg tablet 500 mg PO TID 3 Days Qty: 9 0RF vancomycin 125 mg capsule 125 mg PO Q6H 10 Days Qty: 40 0RF Continued potassium chloride 10 mEq tablet extended release 10 meq PO BID Qty: 180 3RF carvedilol 12.5 mg tablet 12.5 mg PO BID cyanocobalamin (vitamin B-12) [Vitamin B-12] 1,000 mcg Tablet 1,000 mcg PO DAILY amitriptyline 25 mg tablet 25 mg PO HS lorazepam 0.5 mg tablet 0.5 mg PO TID PRN (Reason: Anxiety) pantoprazole 40 mg tablet,delayed release (DR/EC) 40 mg PO BID ferrous sulfate [iron] 325 mg (65 mg iron) Tablet 325 mg PO DAILY docusate sodium 100 mg Capsule 100 mg PO BID PRN (Reason: Constipation) pramipexole 0.25 mg tablet 0.5 mg PO HS pramipexole 0.25 mg tablet 0.25 mg PO .QAFTERNOON gabapentin 100 mg capsule 100 mg PO TID Rx Instructions: Take 1 cap in AM, 1 cap at NOON, & 1 cap before hs colestipol 1 gram tablet 2 g PO AMHS oxycodone 5 mg tablet 5 mg PO Q4 PRN (Reason: Severe Pain (Scale Score 7-10)) ergocalciferol (vitamin D2) 1,250 mcg (50,000 unit) capsule 1,250 mcg PO .tuesday levothyroxine 125 mcg tablet 125 mcg PO QAM clonazepam 1 mg Tablet 1 mg PO HS PRN (Reason: RLS) Rx Instructions: administer 30 minutes before bedtime clotrimazole 1 % cream 1 applic VAGINAL HS Saccharomyces boulardii 250 mg Capsule 250 mg PO BID Qty: 20 0RF Changed bumetanide 1 mg tablet 2 mg PO BID Qty: 60 0RF Held warfarin 5 mg tablet 5 mg PO DIRECTED Hold Instructions: Resume on 05/11/23. Rx Instructions: Tu//Sat/Sun warfarin 5 mg tablet 2.5 mg PO MOWEFR@1600 Hold Instructions: Resume on 05/11/23. diphenoxylate-atropine 2.5-0.025 mg tablet 1 tab PO Q6H PRN (Reason: Diarrhea) Hold Instructions: Resume on 05/19/23. Discharge Orders: Discharge Order (Routine); Ordered 05/09/23 Ordered By: Rafa More/Other Patient Handouts: Clostridium Difficile Infection Admission Data Admit Date/Time: 05/02/23 11:05 Attending Provider: Rafa Lozano Admit Provider: Parul Stein Primary Care Provider: Tristan Conde Other Providers: Parul Stein
== END 2023-05-09 12:34 | disposition home health service (06) | DRG 372 ==
LOC: ED 08:03 → SUATTDRO 11:05 → 2S 11:05 → 3W 05-03 21:51

== ENCOUNTER 2023-07-09 09:45 | Inpatient (IN) ==
--- NOTE | 2023-07-09 10:30 | Emergency Department Note ---
Impression & Plan SOB (shortness of breath), Nausea & vomiting, Elevated troponin, CHF (congestive heart failure), Acute hypokalemia ED Provider Note INFORMANT: Patient ED PROVIDER(S): Avi Murray MD CHIEF COMPLAINT: Shortness of breath PLAN: Disposition: Admitted Condition: Good Outpatient prescription management: none Referral: None MEDICAL DECISION MAKING: Patient presented because of shortness of breath weakness. She also had some intermittent chest pain. Patient is on warfarin anticoagulation. Patient also notes finishing a work-up was initiated. Her ECG did not show any acute ischemia. Chest x-ray was concerning for some pulmonary vascular congestion. Mild anemia but no leukocytosis on CBC. Chemistry panel did reveal hypokalemia. Patient was given IV potassium. Patient's BNP and troponin are mildly elevated And concerning for CHF as well as possible cardiac etiology of the pain. Patient was given IV Lasix and Nitropaste applied further management in the [facility] will be necessary. Consultation was made with the [facility] service. I discussed the case with Yanna FLEMING. Patient then provided urine sample and this was concerning for infection. Given her history I did notify Yanna and she we will manage antibiotics as an inpatient. Discussed with manager primary After review of the information above and other included data, I feel the patient requires admission Triage Nursing notes reviewed and agree them. Vital Signs: reviewed and remarkable for no significant abnormalities Prior /Outside records reviewed: Prior hospitalization record reviewed Differential diagnosis: UTI, pneumonia, pneumothorax, COPD, CHF, infections, cardiac ischemia, pulmonary embolism, musculoskeletal, gastrointestinal, as well as other pathologies. Diagnostics, as interpreted by me: ECG: Twelve-lead ECG reveals a sinus rhythm with first-degree block at 77 bpm. Right bundle branch block. No ST elevation or depression. Cardiac Monitoring: Cardiac monitoring ordered by me: The patient was placed on continuous cardiac monitoring and observed. It revealed a normal sinus rhythm at 97 beats per minute without ectopy or evidence of dysrhythmia. Medical decision rules: none Imaging studies: Chest x-ray is concerning for mild cardiomegaly and pulmonary vascular congestion. HPI: The patient is a 78 year old female who presents to the Emergency Room with complaints of sob. This started last night. The patient also notes the following associated symptoms, nausea x 2 days, vomiting last night x1, urinary pressure, weakness, chest pain. The patient has found no relieving factors. Current pain is rated as 1/10. Finished abx 2 weeks ago for uti. Pt denies LOC, headache, fevers, chills, diaphoresis, visual changes, neck pain, abdominal pain, back pain, melena, hematochezia, numbness, lymphadenopathy, rash, or other complaints. PAST MEDICAL HISTORY: See Below, DVT, HTN, CHF PAST SURGICAL HISTORY: See Below, SOCIAL HISTORY: See Below, retired HOME MEDICATIONS: See Below ALLERGIES: See Below VITALS: See Below PHYSICAL EXAMINATION: GENERAL: Awake, alert, nontoxic-appearing, in no distress HENT: Normocephalic, atraumatic. Oropharynx unremarkable. EYES: Normal conjunctiva. Sclera non-icteric. NECK: Inspection normal. Non-tender. Supple. No nuchal rigidity. FROM. No masses. RESPIRATORY: Clear to auscultation. No wheezes. No rales. Normal respiratory effort. CARDIAC: Normal rate. Normal rhythm. No murmurs. No rubs. Extremities warm and well perfused. Pulses equal. No JVD. GI: Soft, non-distended. No tenderness to palpation. No rebound or guarding. No masses. RECTAL: Deferred. MUSCULOSKELETAL: Atraumatic. Chest examination reveals no tenderness. The back is symmetrical on inspection without obvious abnormality. There is no CVA tenderness to palpation. No joint edema. LOWER EXTREMITIES: Calves are equal size bilaterally and non-tender. 2+ edema. No discoloration. NEURO: Normal sensorium. No sensory or motor deficits noted. SKIN: No rash or jaundice noted. Past Med/Surg History Medical History Acute kidney injury superimposed on CKD Anemia resolved per pt, blood transfusions "many yrs ago" unknown cause per pt; mild asymptomatic per nephrology 08/2021 note Anemia of chronic disease Cardiorenal syndrome with renal failure Chronic anticoagulation PE and long time warfarin CKD (chronic kidney disease), stage III Contusion Depression controlled, stable per pt JOSE (generalized anxiety disorder) controlled, stable per pt Heart failure HTN (hypertension) controlled, stable per pt Hyperkalemia Hypothyroidism IBS (irritable bowel syndrome) NIKKI (obstructive sleep apnea) Intolerant to CPAP-no current treatment NIKKI (obstructive sleep apnea) Peripheral neuropathy feet, uses rolling walker consistently Pulmonary embolism on warfarin, follows with anticoagulation clinic Venous insufficiency Vitamin D deficiency Surgical History History of bilateral knee replacement History of cataract extraction right and left History of hysterectomy History of open reduction and internal fixation (ORIF) procedure right foot History of spinal fusion Hx of total shoulder replacement right and left Left reverse TSA 02/01/2018: LMA#4 + PNB. No issues per anesthesia progress note. S/P cardiac cath "2002 - normal coronaries" S/P cholecystectomy S/P left knee arthroscopy Family History Father Pulmonary embolism, Onset Age: 69 Stroke Mother , 93 Arthritis Hypertension Sister Breast cancer Social History Smoking Status: Never smoker Second Hand Exposure: No; Do You Dip or Chew Tobacco: No; Hx Alcohol Use: No Hx Substance Use: No Preferred Language: Japanese Communication Ability: Effective Visual Impairment: Limited Hearing Ability: Hard of Hearing Transportation Design Engineer Required: No Beliefs That Will Affect Care: None marital status: / Current Living Situation: Alone current occupational status: retired How many Children do You have: 2 How many Children do You have Comment: neither son is local, pt stated she has two sister in laws that assist with care as needed. She also has a niece that assists her frequently. Feels Safe at Home: Yes during the past year weight has: remained stable Assistive Devices: None Allergies Allergies Allergy/AdvReac Type Severity Reaction Status Date / Time No Known Allergies Allergy Verified 05/02/23 10:50 Home Meds Home Medications Medication Instructions Recorded Confirmed amitriptyline 25 mg tablet 25 mg PO HS 09/21/22 07/09/23 carvedilol 12.5 mg tablet 12.5 mg PO BID 09/21/22 07/09/23 colestipol 1 gram tablet 2 g PO AMHS 09/21/22 07/09/23 cyanocobalamin (vitamin B-12) 1,000 mcg PO DAILY 09/21/22 07/09/23 1,000 mcg tablet (Vitamin B-12) docusate sodium 100 mg capsule 100 mg PO BID PRN Constipation 09/21/22 07/09/23 ferrous sulfate 325 mg (65 mg 325 mg PO DAILY 09/21/22 07/09/23 iron) tablet (iron) gabapentin 100 mg capsule 200 mg PO TID 09/21/22 07/09/23 lorazepam 0.5 mg tablet 0.5 mg PO TID PRN Anxiety 09/21/22 07/09/23 oxycodone 5 mg tablet 5 mg PO Q4 PRN Severe Pain (Scale 09/21/22 07/09/23 Score 7-10) pantoprazole 40 mg tablet,delayed 40 mg PO BID 09/21/22 07/09/23 release pramipexole 0.25 mg tablet 0.25 mg PO .QAFTERNOON 09/21/22 07/09/23 pramipexole 0.25 mg tablet 0.5 mg PO HS 09/21/22 07/09/23 warfarin 5 mg tablet 2.5 mg PO MOWEFR@1600 09/21/22 07/09/23 warfarin 5 mg tablet 5 mg PO DIRECTED 09/21/22 07/09/23 ergocalciferol (vitamin D2) 1,250 1,250 mcg PO .tuesday10/18/22 07/09/23 mcg (50,000 unit) capsule clonazepam 1 mg tablet 1 mg PO HS PRN RLS 05/02/23 07/09/23 clotrimazole 1 % vaginal cream 1 applic vaginal HS 05/02/23 07/09/23 diphenoxylate-atropine 2.5 1 tab PO Q6H PRN Diarrhea 05/02/23 07/09/23 mg-0.025 mg tablet levothyroxine 125 mcg tablet 125 mcg PO QAM 05/02/23 07/09/23 Previous Rx's Medication Instructions Recorded potassium chloride 10 mEq 10 meq PO BID #180 tabs 04/05/23 tablet,extended release Saccharomyces boulardii 250 mg 250 mg PO BID #20 caps 05/09/23 capsule bumetanide 1 mg tablet 2 mg PO BID #60 tabs 05/09/23 Results & Data (ED) Vital Signs Vital Signs - 24 hr 07/09/23 09:55 07/09/23 10:00 07/09/23 10:06 Temperature 37.2 C Temperature Source Oral Pulse Rate 67 Pulse Rate from SpO2 Sensor Respiratory Rate 22 Respiratory Effort / Characteristics Non-Labored SOB on Exertion Spontaneous SOB on Exertion Respiratory Depth Normal Normal Respiratory Pattern Regular Regular Blood Pressure 149/78 H Blood Pressure Mean 101 Pulse Oximetry 94 89 L Oxygen Delivery Method Room Air Room Air Room Air Oxygen Flow Rate 94 Sepsis Recent Fever Within 48 Hours No Sepsis New/Unexplained Change in Mental Status No Sepsis Action Taken by Nursing No Action Required Oxygen Flow Rate - Titration 2 Pulse Oximetry Post Tiitration 92 07/09/23 10:00 07/09/23 10:31 07/09/23 11:31 Temperature Temperature Source Pulse Rate 74 Pulse Rate from SpO2 Sensor 74 72 73 Respiratory Rate 15 22 18 Respiratory Effort / Characteristics Respiratory Depth Respiratory Pattern Blood Pressure 141/89 H 126/66 135/91 Blood Pressure Mean 106 86 105 Pulse Oximetry 93 96 94 Oxygen Delivery Method Oxygen Flow Rate 2 2 2 Sepsis Recent Fever Within 48 Hours Sepsis New/Unexplained Change in Mental Status Sepsis Action Taken by Nursing Oxygen Flow Rate - Titration Pulse Oximetry Post Tiitration 07/09/23 12:35 Temperature Temperature Source Pulse Rate Pulse Rate from SpO2 Sensor Respiratory Rate Respiratory Effort / Characteristics Respiratory Depth Respiratory Pattern Blood Pressure Blood Pressure Mean Pulse Oximetry 97 Oxygen Delivery Method Nasal Cannula Oxygen Flow Rate 2 Sepsis Recent Fever Within 48 Hours Sepsis New/Unexplained Change in Mental Status Sepsis Action Taken by Nursing Oxygen Flow Rate - Titration Pulse Oximetry Post Tiitration Laboratory Data 07/09/23 09:55 07/09/23 09:55 Lab Results 07/09/23 07/09/23 07/09/23 Range/Units 09:55 09:55 09:55 WBC 8.40 (4.8-10.8) K/ul RBC 3.74 L (4.20-5.40) M/uL Hgb 11.5 L (12.0-16.0) g/dl Hct 35.0 L (37.0-47.0) % MCV 93.6 (80.0-100.0) fL MCH 30.7 (25.0-34.0) pg MCHC 32.9 (32.0-36.0) g/dL RDW Std Deviation 53.2 H (36.4-46.3) fL RDW Coeff of Bertha 15.5 H (11.5-14.5) % Plt Count 138 (130-400) K/uL MPV 11.8 (9.4-12.4) fL Immature Gran % (Auto) 0.2 % Neut % (Auto) 83.2 % Lymph % (Auto) 8.0 % Thomas % (Auto) 8.6 % Eos % (Auto) 0.0 % Baso % (Auto) 0.0 % Neut # (Auto) 6.99 H (1.40-6.50) K/uL Lymph # (Auto) 0.67 L (1.20-3.40) K/uL Thomas # (Auto) 0.72 H (0.11-0.59) K/uL Eos # (Auto) 0.00 (0.00-0.50) K/uL Baso # (Auto) 0.00 (0.00-0.20) K/uL Immature Gran # (Auto) 0.02 (0.01-0.20) K/uL PT (9.0-12.0) Seconds INR (0.9-1.1) Sodium 139 (136-145) mmol/L Potassium 3.1 L (3.5-5.1) mmol/L Chloride 102 (98-107) mmol/L Carbon Dioxide 30 (21-32) mmol/L Anion Gap 7 (3-11) BUN 16 (6-23) mg/dl Creatinine 0.69 (0.6-1.2) mg/dl Est Cr Clr Drug Dosing 73.7 ml/min Est GFR ( Amer) 95.3 ml/min Est GFR (Non-Af Amer) 82.2 ml/min BUN/Creatinine Ratio 23.2 H (10-20) Glucose 118 H (70-99(Fasting)) mg/dl Calcium 9.2 (8.6-10.3) mg/dl Magnesium 1.6 L (1.7-2.4) mg/dl Total Bilirubin 1.0 (0.2-1.0) mg/dl AST 13 (13-39) U/L ALT 12 (7-52) U/L Alkaline Phosphatase 171 H (34-104) U/L Troponin I High Sens 15.7 H (0-14) pg/ml B-Natriuretic Peptide 194 H (0-100) pg/ml Total Protein 6.7 (6.0-8.3) gm/dl Albumin 3.7 (3.4-5.0) gm/dl Globulin 3.0 (2.5-4.0) gm/dl Albumin/Globulin Ratio 1.2 (0.9-2) Urine Color Urine Appearance (Clear) Urine pH (4.5-7.5) Ur Specific [place] (1.000-1.030) Urine Protein (Negative) Urine Glucose (UA) (Negative) Urine Ketones (Negative) Urine Blood (Negative) Urine Nitrite (Negative) Urine Bilirubin (Negative) Urine Urobilinogen (Negative) Ur Leukocyte Esterase (Negative) Urine WBC (Auto) (0-5) /hpf Urine RBC (Auto) (0-4) /hpf U Hyaline Cast (Auto) (0-5) /lpf U Epithel Cells (Auto) (0-5) /lpf Urine Bacteria (Auto) (Negative) SARS-CoV-2, RNA, NAAT (NEGATIVE) 07/09/23 07/09/23 07/09/23 Range/Units 09:55 11:09 12:30 WBC (4.8-10.8) K/ul RBC (4.20-5.40) M/uL Hgb (12.0-16.0) g/dl Hct (37.0-47.0) % MCV (80.0-100.0) fL MCH (25.0-34.0) pg MCHC (32.0-36.0) g/dL RDW Std Deviation (36.4-46.3) fL RDW Coeff of Bertha (11.5-14.5) % Plt Count (130-400) K/uL MPV (9.4-12.4) fL Immature Gran % (Auto) % Neut % (Auto) % Lymph % (Auto) % Thomas % (Auto) % Eos % (Auto) % Baso % (Auto) % Neut # (Auto) (1.40-6.50) K/uL Lymph # (Auto) (1.20-3.40) K/uL Thomas # (Auto) (0.11-0.59) K/uL Eos # (Auto) (0.00-0.50) K/uL Baso # (Auto) (0.00-0.20) K/uL Immature Gran # (Auto) (0.01-0.20) K/uL PT 15.5 H (9.0-12.0) Seconds INR 1.4 H (0.9-1.1) Sodium (136-145) mmol/L Potassium (3.5-5.1) mmol/L Chloride (98-107) mmol/L Carbon Dioxide (21-32) mmol/L Anion Gap (3-11) BUN (6-23) mg/dl Creatinine (0.6-1.2) mg/dl Est Cr Clr Drug Dosing ml/min Est GFR ( Amer) ml/min Est GFR (Non-Af Amer) ml/min BUN/Creatinine Ratio (10-20) Glucose (70-99(Fasting)) mg/dl Calcium (8.6-10.3) mg/dl Magnesium (1.7-2.4) mg/dl Total Bilirubin (0.2-1.0) mg/dl AST (13-39) U/L ALT (7-52) U/L Alkaline Phosphatase (34-104) U/L Troponin I High Sens (0-14) pg/ml B-Natriuretic Peptide (0-100) pg/ml Total Protein (6.0-8.3) gm/dl Albumin (3.4-5.0) gm/dl Globulin (2.5-4.0) gm/dl Albumin/Globulin Ratio (0.9-2) Urine Color Dark Yellow Urine Appearance Turbid A (Clear) Urine pH 5.5 (4.5-7.5) Ur Specific [place] 1.014 (1.000-1.030) Urine Protein 1+ H (Negative) Urine Glucose (UA) Negative (Negative) Urine Ketones Negative (Negative) Urine Blood 3+ H (Negative) Urine Nitrite Positive A (Negative) Urine Bilirubin Negative (Negative) Urine Urobilinogen Negative (Negative) Ur Leukocyte Esterase 3+ H (Negative) Urine WBC (Auto) >30 H (0-5) /hpf Urine RBC (Auto) 10-30 H (0-4) /hpf U Hyaline Cast (Auto) 0 (0-5) /lpf U Epithel Cells (Auto) 20-30 H (0-5) /lpf Urine Bacteria (Auto) 4+ H (Negative) SARS-CoV-2, RNA, NAAT NEGATIVE (NEGATIVE) Administered Medications Discontinued Medications Furosemide (Furosemide 40 Mg/4 Ml Vial) 40 mg IV ONE ONE Stop: 07/09/23 12:01 Last Admin: 07/09/23 12:28 Dose: 40 mg Documented By: CORDELIA Potassium Chloride (K Venancio / Wtr) 10 meq in 100 mls @ 100 mls/hr IV ONE ONE; Protocol Stop: 07/09/23 12:59 Last Admin: 07/09/23 12:28 Dose: 100 mls/hr Documented By: CORDELIA Nitroglycerin (Nitroglycerin 2% Ointment 30gm Tube) 0.5 inch EXT NOW STA Stop: 07/09/23 12:01 Last Admin: 07/09/23 12:28 Dose: 0.5 inch Documented By: CORDELIA Imaging Data Radiologist's Impression: Chest X-Ray 07/09/23 10:38 XR chest 1V portable CLINICAL HISTORY: Dyspnea COMPARISON STUDY: Chest radiograph September 21, 2022. FINDINGS: Bilateral shoulder arthroplasties are incidentally noted. Lung volumes are diminished. This is unchanged. There is no pneumothorax or pleural effusion. Interstitial thickening has slightly decreased since prior exam. Cardiomegaly is unchanged. Mediastinal contours are stable. IMPRESSION: Interstitial thickening, slightly decreased when compared to prior exam. This favors pulmonary vascular congestion. ACT 112: Negative or not required by law. Electronically signed by: Jim Snyder M.D. 07/09/2023 11:27 AM Discharge Plan Visit Data Chief Complaint: Shortness of Breath/Dyspnea Stated Complaint: SHORTNESS OF BREATH ED Provider: Avi Murray Discharge Problem: SOB (shortness of breath), Nausea & vomiting, Elevated troponin, CHF (congestive heart failure), Acute hypokalemia Patient Disposition: Admitted As Inpatient Discharge Instructions Interventions: ED Discharge Assessment Last Done: 07/09/23 14:32
[2023-07-09 10:58] LABS: Albumin Globulin Ratio 1.2 (0.9-2); Albumin Level 3.7 gm/dl (3.4-5.0); BUN Creatinine Ratio 23.2 (10-20); Calcium 9.2 mg/dl (8.6-10.3); Creatinine Clr Calc Pharmacy 73.7 ml/min; Est GFR (African American) 95.3 ml/min; Est GFR (Non-African American) 82.2 ml/min; Magnesium 1.6 mg/dl (1.7-2.4); Potassium 3.1 mmol/L (3.5-5.1); Total Protein 6.7 gm/dl (6.0-8.3)
[2023-07-09 11:00] LABS: Hemoglobin 11.5 g/dl (12.0-16.0); Immature Granulocytes # (auto) 0.02 K/uL (0.01-0.20); Immature Granulocytes % (auto) 0.2 %; Lymphocytes # (auto) 0.67 K/uL (1.20-3.40); Mean Corpuscular Hemoglobin 30.7 pg (25.0-34.0); Mean Corpuscular Hgb Conc 32.9 g/dL (32.0-36.0); Mean Corpuscular Volume 93.6 fL (80.0-100.0); Mean Platelet Volume 11.8 fL (9.4-12.4); Monocytes # (auto) 0.72 K/uL (0.11-0.59); Monocytes % (auto) 8.6 %; Neutrophils # (auto) 6.99 K/uL (1.40-6.50); Neutrophils % (auto) 83.2 %; Platelet Count 138 K/uL (130-400); RDW Coefficient of Variation 15.5 % (11.5-14.5); RDW Standard Deviation 53.2 fL (36.4-46.3); Red Blood Count 3.74 M/uL (4.20-5.40)
[2023-07-09 11:04] LABS: Troponin I High Sensitivity 15.7 pg/ml (0-14)
--- NOTE | 2023-07-09 11:28 | XRay Report ---
XR chest 1V portable CLINICAL HISTORY: Dyspnea COMPARISON STUDY: Chest radiograph September 21, 2022. FINDINGS: Bilateral shoulder arthroplasties are incidentally noted. Lung volumes are diminished. This is unchanged. There is no pneumothorax or pleural effusion. Interstitial thickening has slightly dec reased since prior exam. Cardiomegaly is unchanged. Mediastinal contours are stable. IMPRESSION: Interstitial thickening, slightly decreased when compared to prior exam. This favors pul monary vascular congestion. ACT 112: Negative or not required by law. Electronically signed by: Jim Snyder M.D. 07/09/2023 11:27 AM
[2023-07-09] MEDS ORDERED: NITROGLYCERIN 2% OINTMENT 30GM TUBE EXT STA (12:00)
[2023-07-09] MEDS ORDERED: POTASSIUM CHLORIDE / WTR 10 MEQ/100 ML PLCT IV ONE (12:00)
[2023-07-09] MEDS ORDERED: FUROSEMIDE 40 MG/4 ML VIAL IV ONE (12:00)
--- NOTE | 2023-07-09 12:25 | History & Physical Report ---
Date of Service July 09, 2023 Assessment & Plan (1) SOB (shortness of breath): (2) Heart failure, chronic, with acute decompensation: (3) Elevated troponin: Plan: Chronically elevated troponin Patient is 78-year-old female with PMH systolic heart failure, chronic bilateral lower extremity edema thought secondary to lymphedema, CKD III, history of PE chronically anticoagulated on Coumadin, hypothyroidism, anxiety, RLS, iron deficiency anemia, NIKKI, obesity presented to ER with complaint of shortness of breath x1 day. 89% on RA in ER, afebrile. No leukocytosis, BNP:194, INR: 1.4 HS troponin: 15.7 (baseline in 15-20's). EKG: Sinus rhythm first-degree block, rate 77, RBBB per my interpretation. Per review of old EKGs patient with history of RBBB in past In ER given Lasix 40 mg IV, Nitropaste for CHF as well as blood pressure control Hold home Bumex Lasix 40 mg IV twice daily Monitor daily weight, DENZEL's, low-sodium diet History Echo 05/03/2023: EF: 55-60%, mild concentric LVH, mild mitral regurgitation, trace tricuspid regurgitation We will hold on further echo at this time and monitor Supplemental oxygen as needed CTA chest pending to rule out PE with subtherapeutic INR May need to consider 2 step for oxygen supplementation needs (4) UTI (urinary tract infection): Plan: Suprapubic discomfort, nausea UA consistent with UTI Urine culture pending Start Rocephin as well as daily po vancomycin with pt's recent h/o Cdiff If worsening abdominal pain or no improvement then consider abdominal imaging (5) Hypokalemia: Plan: K: 3.1 In ER given 1K rider Replace and monitor Continue home 10 mEq KCl twice daily for now, will likely need to increase home dose as patient on 2 mg Bumex twice daily at baseline (6) Hypomagnesemia: Plan: Magnesium: 1.6 Replace and monitor (7) CKD (chronic kidney disease), stage III: Plan: Cr: 0.39. Baseline 0.8-1 Monitor renal functions, avoid nephrotoxic agents when possible (8) History of pulmonary embolism: Plan: Chronically anticoagulated on Coumadin INR: 1.4 Adjust Coumadin INR in a.m. (9) HTN (hypertension): Plan: Continue carvedilol (10) Iron deficiency anemia: Plan: Hgb: 11.5. Baseline 11-12 Continue iron supplement (11) Lymphedema: (12) Chronic venous insufficiency: Plan: Chronic BLE edema On Bumex. Bumex on hold and receiving Lasix IV as above (13) JOSE (generalized anxiety disorder): Plan: Continue home medications (14) Restless leg syndrome: Plan: Continue pramipexole (15) NIKKI (obstructive sleep apnea): Plan: BiPAP at bedtime. Patient states often is unable to tolerate DVT Prophylaxis On Coumadin Full Code as per discussion with pt Follows with Dr Conde for routine care Pt was seen and care coordinated with Dr Yu. See addendum I spent a total of 77 minutes reviewing notes, outpatient records, labs, medication, coordinating, documenting and providing care for this patient excluding time spent in the performance of separately billed services. History of Present Illness Chief Complaint: SOB Primary Care Provider: Tristan Conde MD Patient is 78-year-old female with PMH systolic heart failure, chronic bilateral lower extremity edema thought secondary to lymphedema, CKD III, history of PE chronically anticoagulated on Coumadin, hypothyroidism, anxiety, RLS, iron deficiency anemia, NIKKI, obesity presented to ER with complaint of shortness of breath x1 day. History obtained from patient as well as inpatient and outpatient chart review. Recent hospitalization in April 2023 for C. difficile, diverticulitis and was treated with Vanco, Cipro, Flagyl. Patient states couple weeks ago had suprapubic pressure which she often gets with UTIs and had outpatient urinalysis 06/16/2023 that showed bacteria, WBC and was treated with nitrofurantoin x7 days as well as vancomycin. Patient states for the last 3 days with suprapubic pressure again. She reports frequent urination however is on diuretics as well. She reports that last night drank water and coughed and then vomited 3 times after. Denies hematemesis. no further vomiting since. Nausea this morning. Did not take morning meds today. Yesterday and today with SOB and left chest heaviness. Has oxygen to use at home at 2.5L however typically does not use. Has chronic BLE edema and doesn't feel has had any worsening swelling. She has Bipap to use at night but doesn't use regularly as she cannot tolerate it. Has had loose stools since her C. difficile 2 months ago. Denies fever/chills, diaphoresis, HUNTER, dizziness, syncope, orthopnea, palpitations, rhinorrhea, other abdominal pain, paresthesias, weakness, rashes, hematuria, urinary retention. Allergies Allergy/AdvReac Type Severity Reaction Status Date / Time No Known Allergies Allergy Verified 05/02/23 10:50 Home Medications Medication Instructions Recorded Confirmed Type amitriptyline 25 mg tablet 25 mg PO HS 09/21/22 07/09/23 History carvedilol 12.5 mg tablet 12.5 mg PO BID 09/21/22 07/09/23 History colestipol 1 gram tablet 2 g PO AMHS 09/21/22 07/09/23 History cyanocobalamin (vitamin B-12) 1,000 mcg PO DAILY 09/21/22 07/09/23 History 1,000 mcg tablet (Vitamin B-12) docusate sodium 100 mg capsule 100 mg PO BID PRN Constipation 09/21/22 07/09/23 History ferrous sulfate 325 mg (65 mg 325 mg PO DAILY 09/21/22 07/09/23 History iron) tablet (iron) gabapentin 100 mg capsule 200 mg PO TID 09/21/22 07/09/23 History lorazepam 0.5 mg tablet 0.5 mg PO TID PRN Anxiety 09/21/22 07/09/23 History oxycodone 5 mg tablet 5 mg PO Q4 PRN Severe Pain (Scale 09/21/22 07/09/23 History Score 7-10) pantoprazole 40 mg tablet,delayed 40 mg PO BID 09/21/22 07/09/23 History release pramipexole 0.25 mg tablet 0.25 mg PO .QAFTERNOON 09/21/22 07/09/23 History pramipexole 0.25 mg tablet 0.5 mg PO HS 09/21/22 07/09/23 History warfarin 5 mg tablet 2.5 mg PO MOWEFR@1600 09/21/22 07/09/23 History warfarin 5 mg tablet 5 mg PO DIRECTED 09/21/22 07/09/23 History ergocalciferol (vitamin D2) 1,250 1,250 mcg PO .tuesday10/18/22 07/09/23 History mcg (50,000 unit) capsule potassium chloride 10 mEq 10 meq PO BID #180 tabs 04/05/23 07/09/23 Rx tablet,extended release clonazepam 1 mg tablet 1 mg PO HS PRN RLS 05/02/23 07/09/23 History clotrimazole 1 % vaginal cream 1 applic vaginal HS 05/02/23 07/09/23 History diphenoxylate-atropine 2.5 1 tab PO Q6H PRN Diarrhea 05/02/23 07/09/23 History mg-0.025 mg tablet levothyroxine 125 mcg tablet 125 mcg PO QAM 05/02/23 07/09/23 History Saccharomyces boulardii 250 mg 250 mg PO BID #20 caps 05/09/23 07/09/23 Rx capsule bumetanide 1 mg tablet 2 mg PO BID #60 tabs 05/09/23 07/09/23 Rx Past Med/Surg History Medical History Acute kidney injury superimposed on CKD Anemia resolved per pt, blood transfusions "many yrs ago" unknown cause per pt; mild asymptomatic per nephrology 08/2021 note Anemia of chronic disease Cardiorenal syndrome with renal failure Chronic anticoagulation PE and long time warfarin CKD (chronic kidney disease), stage III Contusion Depression controlled, stable per pt JOSE (generalized anxiety disorder) controlled, stable per pt Heart failure HTN (hypertension) controlled, stable per pt Hyperkalemia Hypothyroidism IBS (irritable bowel syndrome) NIKKI (obstructive sleep apnea) Intolerant to CPAP-no current treatment NIKKI (obstructive sleep apnea) Peripheral neuropathy feet, uses rolling walker consistently Pulmonary embolism on warfarin, follows with anticoagulation clinic Venous insufficiency Vitamin D deficiency Surgical History History of bilateral knee replacement History of cataract extraction right and left History of hysterectomy History of open reduction and internal fixation (ORIF) procedure right foot History of spinal fusion Hx of total shoulder replacement right and left Left reverse TSA 02/01/2018: LMA#4 + PNB. No issues per anesthesia progress note. S/P cardiac cath "2002 - normal coronaries" S/P cholecystectomy S/P left knee arthroscopy Family History Father Pulmonary embolism, Onset Age: 69 Stroke Mother , 93 Arthritis Hypertension Sister Breast cancer Social History Smoking Status: Never smoker Second Hand Exposure: No; Do You Dip or Chew Tobacco: No; Hx Alcohol Use: No Hx Substance Use: No Preferred Language: [place] Citizen Communication Ability: Effective Visual Impairment: Limited Hearing Ability: Hard of Hearing [employer] Required: No Beliefs That Will Affect Care: None marital status: / Current Living Situation: Alone current occupational status: retired How many Children do You have: 2 How many Children do You have Comment: neither son is local, pt stated she has two sister in laws that assist with care as needed. She also has a niece that assists her frequently. Feels Safe at Home: Yes during the past year weight has: remained stable Assistive Devices: None Review of Systems Review of Systems: All systems reviewed & are unremarkable except as noted in HPI & below Physical Exam Physical Exam: General: no distress, WDWN Head: normocephalic, atraumatic Eyes: conjunctiva non-injected, anicteric ENT: normal inspection external ears, nose, mucous membranes moist Neck: supple, trachea midline Lungs: clear, no respiratory distress, no wheezing/rhonchi/rales CV: RRR, no murmur Abd: normal BS, soft, non-tender Ext: no cyanosis, no erythema, no calf tenderness, +edema BLE Neuro: A&O x 3, no focal deficits noted, normal affect Skin: warm, dry Results & Data Results & Data Vital Signs (Past 12 Hours) Vital Signs Temp Pulse Resp BP Pulse Ox O2 Del Method O2 Flow Rate 07/09/23 11:31 18 135/91 94 2 07/09/23 10:31 22 126/66 96 2 07/09/23 10:00 74 15 141/89 H 93 2 07/09/23 10:06 89 L Room Air 07/09/23 10:00 Room Air 94 07/09/23 09:55 37.2 C 67 22 149/78 H 94 Room Air Laboratory Results Short CBC 07/09/23 Range/Units 09:55 WBC 8.40 (4.8-10.8) K/ul Hgb 11.5 L (12.0-16.0) g/dl Hct 35.0 L (37.0-47.0) % Plt Count 138 (130-400) K/uL BMP 07/09/23 09:55 Sodium 139 Potassium 3.1 L Chloride 102 Carbon Dioxide 30 BUN 16 Creatinine 0.69 Glucose 118 H Calcium 9.2 Liver Function 07/09/23 Range/Units 09:55 Total Bilirubin 1.0 (0.2-1.0) mg/dl AST 13 (13-39) U/L ALT 12 (7-52) U/L Alkaline Phosphatase 171 H (34-104) U/L Albumin 3.7 (3.4-5.0) gm/dl Urine 07/09/23 Range/Units 12:30 Urine Color Dark Yellow Urine Appearance Turbid A (Clear) Urine pH 5.5 (4.5-7.5) Ur Specific [place] 1.014 (1.000-1.030) Urine Protein 1+ H (Negative) Urine Glucose (UA) Negative (Negative) Diagnostic Findings Short CBC 07/09/23 Range/Units 09:55 WBC 8.40 (4.8-10.8) K/ul Hgb 11.5 L (12.0-16.0) g/dl Hct 35.0 L (37.0-47.0) % Plt Count 138 (130-400) K/uL [facility] 07/09/23 09:55 Sodium 139 Potassium 3.1 L Chloride 102 Carbon Dioxide 30 BUN 16 Creatinine 0.69 Glucose 118 H Calcium 9.2 Liver Function 07/09/23 Range/Units 09:55 Total Bilirubin 1.0 (0.2-1.0) mg/dl AST 13 (13-39) U/L ALT 12 (7-52) U/L Alkaline Phosphatase 171 H (34-104) U/L Albumin 3.7 (3.4-5.0) gm/dl Urine 07/09/23 Range/Units 12:30 Urine Color Dark Yellow Urine Appearance Turbid A (Clear) Urine pH 5.5 (4.5-7.5) Ur Specific [place] 1.014 (1.000-1.030) Urine Protein 1+ H (Negative) Urine Glucose (UA) Negative (Negative) Supervising Physician Co-Signing Physician Notes Pt is a 78 y/o F with hx of HFpEF, CKD III, Hypothyroidism, hx of PE, on Coumadin, RLS, NIKKI on Bipap, chronic venous insufficiency, recurrent c.diff admitted for worsening SOB with abd pressure and N/V PE: NAD, well developed Lungs: Good air entry, no crackles Cardiac: In Afib, no murmur Abd: ND, NT, soft MSK: moderate b/l LE pitting edema with chronic venous stasis skin changes Psych: AAOx3, normal affect A/P: Acute SOB with CP: -likely 2/2 acute on CHF -pt is on Bumex 2mg BID --- pt did not appear fluid overloaded on exam however due to pulm congestion and elevated BNP will start IV Lasix ---- 40mg IV BID for now -had an echo on 04/2023: EF 55-60% -trop elevated but lower than previous value ---- will trend trop and admit to tele -pts INR was subtherapeutic (1.4) --- due to SOB will get CTA chest ---- pt takes higher dose of Coumadin on sat therefore will continue her home dose today --- repeat INR tomorrow -if there is lack of improvement with IV Lasix then cardiology consult -daily weight and strict I/O Nausea, vomiting and lower abd pressure: -UA + for UTI ---will start pt on ceftriaxone -will do vanc PO 125mg daily while on abx and continue 10days after completing the abx due to hx of recurrent C.Diff Other chronic conditions: plan as above Agree with A/P by Vinita Key PA-C
[2023-07-09 12:59] LABS: INR 1.4 (0.9-1.1); Prothrombin Time 15.5 Seconds (9.0-12.0)
[2023-07-09 13:03] LABS: Appearance Urine Turbid (Clear); Bacteria Urine Automated 4+ (Negative); Bilirubin Urine Negative (Negative); Blood Urine 3+ (Negative); Cast Urine Automated 0 /lpf (0-5); Color Urine Dark Yellow; Epithelial Cell Urine Auto 20-30 /lpf (0-5); Glucose Urine UA Negative (Negative); Ketones Urine Negative (Negative); Leukocyte Esterase Urine 3+ (Negative); Nitrite Urine Positive (Negative); Protein Urine 1+ (Negative); Specific Gravity Urine 1.014 (1.000-1.030); Urobilinogen Urine Negative (Negative); WBC Urine Automated >30 /hpf (0-5); pH Urine 5.5 (4.5-7.5)
[2023-07-09] MEDS ORDERED: POTASSIUM CHLORIDE CRTAB 20 MEQ TABCR PO STA (13:28)
[2023-07-09] MEDS ORDERED: cefTRIAXone SODIUM 2,000 MG in DEXTROSE 5% 50 ML IV STA (13:48)
[2023-07-09] MEDS ORDERED: cefTRIAXone SODIUM 2,000 MG/70 ML BAG IV STA (13:53)
[2023-07-09] MEDS ORDERED: ONDANSETRON INJ 2 MG/ML 2 ML VIAL IV PRN (14:49)
[2023-07-09] MEDS ORDERED: LORazepam 0.5 MG TAB PO PRN (14:49)
[2023-07-09] MEDS ORDERED: clonazePAM 1 MG TAB PO PRN (14:49)
[2023-07-09] MEDS ORDERED: MAGNESIUM SULFATE / D5W 1 GM/100 ML BAG IV ONE (14:49)
[2023-07-09] MEDS ORDERED: IOVERSOL 350 MG 125mL Prefilled Syringe IV ONE (15:52)
[2023-07-09] MEDS: RASPBERRY SYRUP 5 ML UDP PO SCH (16:36)
[2023-07-09] MEDS: VANCOMYCIN HCL 125 MG/2.5ML SOLN PO SCH (16:36)
[2023-07-09] MEDS: GABAPENTIN 100 MG CAP PO SCH ×2 (16:41→20:49)
[2023-07-09] MEDS: FUROSEMIDE 40 MG/4 ML VIAL IV SCH (16:42)
[2023-07-09] MEDS: PRAMIPEXOLE DIHYDROCHLO 0.25 MG TAB PO SCH (16:44)
--- NOTE | 2023-07-09 17:00 | CT Scan Report ---
CT ANGIOGRAPHY OF THE CHEST, PULMONARY EMBOLUS PROTOCOL CLINICAL HISTORY: Increasing shortness of breath. Evaluate for pulmonary embolus. COMPARISON STUDY: Chest CT February 04, 2016 and chest radiograph performed earlier today. TECHNIQUE: Following IV administration of 118 mL of Optiray, helical axial images of the chest were o btained utilizing the pulmonary embolus protocol. Maximal intensity projections and sagittal and cor onal reformats were viewed on an independent 3D workstation. IV contrast was administered without co mplication. Automated exposure control was utilized for the study. A dose lowering technique was ut ilized adhering to the principles of ALARA. CT DOSE: 891.60 mGy.cm FINDINGS: There is a small subsegmental pulmonary embolus within the apicoposterior segment of the l eft upper lobe on image 156 of 223. No additional pulmonary emboli are identified. There is mild dila tation of the central pulmonary arteries. Moderate cardiomegaly is noted. There is no pericardial eff usion. Small hiatal hernia. No thoracic lymphadenopathy is present. No consolidation is present. A 2 cm subpleural opacity within the right lower lobe on image 114 of 223 is present. There is no pneumot horax or pleural effusion. No acute fractures within the visualized bony thorax. IMPRESSION: 1. Subsegmental pulmonary embolus within the left upper lobe. 2. Mild dilatation of the central pulmonary arteries which raises the possibility of pulmonary arteri al hypertension. Moderate cardiomegaly. 3. 2 cm subpleural right lower lobe opacity. Atelectasis or scarring is favored. However, a follow-up chest CT in 3 months is recommended to exclude the possibility of a pulmonary nodule. ACT 112: Positive. There are findings on this exam that require communication between the performing entity and the patient following Patient Test Result Information Act ([place] Act 112) guidelines. Electronically signed by: Jim Snyder M.D. 07/09/2023 4:58 PM
[2023-07-09] MEDS ORDERED: Heparin IV Adult Wt-Based Standard *NO* Bolus Protocol IV SCH (17:15)
--- NOTE | 2023-07-09 17:34 | Electrocardiogram Report ---
Test Reason : Blood Pressure : / mmHG Vent. Rate : 077 BPM Atrial Rate : 077 BPM P-R Int : 216 ms QRS Dur : 132 ms QT Int : 418 ms P-R-T Axes : 088 -12 -19 degrees QTc Int : 473 ms Sinus rhythm with 1st degree A-V block with Premature atrial complexes Right bundle branch block possible Inferior infarct , age undetermined Abnormal ECG When compared with ECG of 03-MAY-2023 20:57, Right bundle branch block is now Present Inferior infarct is now Present Confirmed by Adonis Lema ([id number]) on 07/09/2023 5:34:03 PM Referred By: REFERRED SELF Confirmed By:Keegan Lema
[2023-07-09] MEDS: HEPARIN SODIUM/DEXTROSE 25,000 UNITS/500 ML BAG IV SCH (17:56)
[2023-07-09] MEDS ORDERED: POTASSIUM CHLORIDE CRTAB 20 MEQ TABCR PO ONE (18:00)
[2023-07-09] MEDS: ACETAMINOPHEN 325 MG TAB PO PRN (20:02)
[2023-07-09] MEDS: SACCHAROMYCES BOULARDII 250 MG CAP PO SCH (20:47)
[2023-07-09] MEDS: POTASSIUM CHLORIDE 10 MEQ TABCR PO SCH (20:48)
[2023-07-09] MEDS: PANTOprazole 40 MG TAB PO SCH (20:48)
[2023-07-09] MEDS: carvediloL 12.5 MG TAB PO SCH (20:49)
[2023-07-09] MEDS: AMITRIPTYLINE HCL 25 MG TAB PO SCH (20:49)
[2023-07-09] MEDS: CLOTRIMAZOLE VAGINAL CR 7 APPLN/45 GM TUBE PV SCH ×2 (20:49→21:29)
[2023-07-09] MEDS: PRAMIPEXOLE DIHYDROCHLO 0.5 MG TAB PO SCH (20:50)
[2023-07-09] MEDS: COLESTIPOL HCL 1 GM TAB PO SCH (21:44)
[2023-07-10 01:58] LABS: Partial Thromboplastin Ratio 1.5
[2023-07-10 02:04] LABS: Partial Thromboplastin Time 42.7 Seconds (21.0-31.0)
[2023-07-10] MEDS: LEVOTHYROXINE SODIUM 125 MCG TABLET PO SCH (06:00)
[2023-07-10 07:15] LABS: Hematocrit (blood only) 29.8 % (37.0-47.0); Hemoglobin 9.9 g/dl (12.0-16.0); Mean Corpuscular Hgb Conc 33.2 g/dL (32.0-36.0); Mean Corpuscular Volume 93.4 fL (80.0-100.0); Mean Platelet Volume 11.5 fL (9.4-12.4); Platelet Count 119 K/uL (130-400); RDW Coefficient of Variation 15.1 % (11.5-14.5); Red Blood Count 3.19 M/uL (4.20-5.40); White Blood Count 6.15 K/ul (4.8-10.8)
[2023-07-10 07:20] LABS: INR 1.4 (0.9-1.1); Prothrombin Time 15.1 Seconds (9.0-12.0)
[2023-07-10 07:22] LABS: Partial Thromboplastin Ratio 1.3; Partial Thromboplastin Time 37.6 Seconds (21.0-31.0)
[2023-07-10 07:42] LABS: Calcium 8.7 mg/dl (8.6-10.3); Creatinine Clr Calc Pharmacy 67.3 ml/min; Est GFR (African American) 87.3 ml/min; Est GFR (Non-African American) 75.3 ml/min; Magnesium 1.7 mg/dl (1.7-2.4); Potassium 3.3 mmol/L (3.5-5.1)
[2023-07-10] MEDS: CYANOCOBALAMIN (B-12) 500 MCG TABLET PO SCH (08:48)
[2023-07-10] MEDS: GABAPENTIN 100 MG CAP PO SCH ×3 (08:49→20:15)
[2023-07-10] MEDS: POTASSIUM CHLORIDE 10 MEQ TABCR PO SCH ×2 (08:49→20:14)
[2023-07-10] MEDS: FERROUS SULFATE 325 MG TAB PO SCH (08:49)
[2023-07-10] MEDS: SACCHAROMYCES BOULARDII 250 MG CAP PO SCH ×2 (08:49→20:13)
[2023-07-10] MEDS: carvediloL 12.5 MG TAB PO SCH ×2 (08:49→20:14)
[2023-07-10] MEDS: PANTOprazole 40 MG TAB PO SCH ×2 (08:50→20:14)
[2023-07-10] MEDS: RASPBERRY SYRUP 5 ML UDP PO SCH (08:50)
[2023-07-10] MEDS: FUROSEMIDE 40 MG/4 ML VIAL IV SCH ×2 (08:52→17:02)
[2023-07-10] MEDS: VANCOMYCIN HCL 125 MG/2.5ML SOLN PO SCH (08:56)
[2023-07-10] MEDS ORDERED: cefTRIAXone SODIUM 2,000 MG in DEXTROSE 5% 50 ML IV SCH (09:00)
[2023-07-10] MEDS: COLESTIPOL HCL 1 GM TAB PO SCH ×2 (10:31→22:40)
--- NOTE | 2023-07-10 11:06 | Hospitalist Progress Note ---
Date of Service July 10, 2023 Assessment & Plan (1) SOB (shortness of breath): (2) Heart failure, chronic, with acute decompensation: (3) Elevated troponin: (4) UTI (urinary tract infection): (5) Hypokalemia: (6) Hypomagnesemia: (7) CKD (chronic kidney disease), stage III: (8) History of pulmonary embolism: (9) HTN (hypertension): (10) Iron deficiency anemia: (11) Lymphedema: (12) Chronic venous insufficiency: (13) JOSE (generalized anxiety disorder): (14) Restless leg syndrome: (15) NIKKI (obstructive sleep apnea): Plan Pt is an 78yoF with PMHx significant for history of PE on chronic anticoagulation w/ warfarin, history of HFpEF, chronic lymphedema, CKD3, HTN, JOSE, NIKKI on BiPAP, anxiety, anemia of chronic disease, chronic venous insufficiency, hypothyroidism who presents with worsening SOB. SOB/Heart failure/Elevated troponin/PE States had been having chest pains but developed SOB the day of presentation. Notes that some time ago she was told by her orthopedist to stop taking her warfarin for 5 days after quite a bit of blood was drained from her knee. States she follows with the coumadin clinic and advised them that she had stopped the coumadin and she was given a regimen of increased dosing once she re-started after the 5 days. 89% on RA in the ER, afebrile. No leukocytosis, BNP:194, INR: 1.4, subtherapeutic HS troponin: 15.7 (baseline in 15-20's). EKG: Sinus rhythm first-degree block, rate 77 Chest XRAY noted pulmonary vascular congestion In ER given Lasix 40 mg IV, Nitropaste CTA chest- noted small PE, moderate cardiomegaly, pulmonary artery HTN and question of a pulmonary nodule requiring repeat chest CT in 3 months On heparin drip, continue Echo ordered and pending Continue with IV Lasix 40mg BID, hold home bumex. Monitor daily weight, DENZEL's, low-sodium diet Supplemental oxygen as needed, pt currently on RA Subtherapeutic INR/Hx of PE INR 1.4 on admission, subtherapeutic As noted above, pt states she was off coumadin for some time, has since restarted. Has upcoming followup with coumadin clinic Pt would like to consider switching to a DOAC, states that she has been on coumadin for about 15 years. Holding warfarin at this time, continue heparin. Consider DOAC switch once pt hemodynamic stability ensured UTI (urinary tract infection) Suprapubic discomfort, nausea UA suggestive of a UTI Urine culture growing gram negative bacilli Continue Rocephin H/O c diff infection Continue daily po vancomycin with pt's recent h/o Cdiff Also on probiotics Hypokalemia Replace and monitor Continue home 10 mEq KCl twice daily for now, will likely need to increase home dose Hypomagnesemia Replace and monitor CKD (chronic kidney disease), stage III Baseline 0.8-1 Stable HTN (hypertension) Continue carvedilol Iron deficiency anemia Baseline 11-12 Continue iron supplement Lymphedema Chronic venous insufficiency Chronic BLE edema On Bumex. Bumex on hold and receiving Lasix IV as above JOSE (generalized anxiety disorder) Continue home medications Restless leg syndrome Continue pramipexole NIKKI (obstructive sleep apnea) BiPAP at bedtime. Patient states often is unable to tolerate Diet: Low sodium DVT Prophylaxis: on Heparin Full Code as per discussion with pt Follows with Dr Conde for routine care Admission and Anticipated Discharge Date Admission Date: July 09, 2023 Subjective Pt seen this AM, sitting at bedside. Notes that some time ago she was told by her orthopedist to stop taking her warfarin for 5 days after quite a bit of blood was drained from her knee. States she follows with the coumadin clinic and advised them that she had stopped the coumadin and she was given a regimen of increased dosing once she re-started after the 5 days. Questioning whether this could have been a cause of her current symptoms. Denies any dysuria. Denies SOB or chest tightness or pain at this time. Review of Systems Review of Systems: All systems reviewed & are unremarkable except as noted in Subjective Physical Exam Physical Exam: General: Alert, oriented. No acute distress Skin: Some erythema to lower extremities especially on the right Psych: Appropriate mood and affect Neuro: No gross deficits HEENT: NC/AT CV: RRR Resp: Breath sounds decreased bilaterally but could be due to body habitus, sounded clear, no increased effort of breathing. Abdomen: Soft, nontender, nondistended. Extremities: +++ edema in lower extremities bilaterally. Results & Data Results & Data Vital Signs (Past 12 Hours) Vital Signs Temp Pulse Pulse Pulse Resp BP BP 07/10/23 07:44 37.5 C 73 19 110/36 L 07/10/23 07:12 74 07/10/23 03:31 36.6 C 69 18 107/60 07/09/23 23:04 36.8 C 74 18 105/63 Pulse Ox O2 Del Method 07/10/23 07:44 90 Room Air 07/10/23 07:12 07/10/23 03:31 96 Room Air 07/09/23 23:04 93 Room Air
[2023-07-10] MEDS ORDERED: POTASSIUM CHLORIDE CRTAB 20 MEQ TABCR PO STA (11:20)
[2023-07-10] MEDS: HEPARIN SODIUM/DEXTROSE 25,000 UNITS/500 ML BAG IV SCH (13:04)
--- NOTE | 2023-07-10 13:28 | Communication Note ---
Date of Service: July 10, 2023 Preliminary echocardiographic result Indications: Assess pulmonary pressure LV systolic function is normal. Right ventricular systolic function and size are normal There is trace tricuspid insufficiency with peak tricuspid valve regurg velocity of 3 m/s reflecting right heart pressures upper limits of normal. No evidence of right ventricular strain
[2023-07-10] MEDS: PRAMIPEXOLE DIHYDROCHLO 0.25 MG TAB PO SCH (13:44)
[2023-07-10 16:27] LABS: Partial Thromboplastin Ratio 1.7
[2023-07-10 16:38] LABS: Partial Thromboplastin Time 47.3 Seconds (21.0-31.0)
[2023-07-10] MEDS: ACETAMINOPHEN 325 MG TAB PO PRN (19:14)
[2023-07-10] MEDS: AMITRIPTYLINE HCL 25 MG TAB PO SCH (20:13)
[2023-07-10] MEDS: PRAMIPEXOLE DIHYDROCHLO 0.5 MG TAB PO SCH (20:14)
[2023-07-10] MEDS: CLOTRIMAZOLE VAGINAL CR 7 APPLN/45 GM TUBE PV SCH (20:18)
[2023-07-10 23:38] LABS: Partial Thromboplastin Ratio 1.9
[2023-07-10 23:39] LABS: Partial Thromboplastin Time 54.4 Seconds (21.0-31.0)
[2023-07-11] MEDS: LEVOTHYROXINE SODIUM 125 MCG TABLET PO SCH (05:40)
[2023-07-11 06:31] LABS: Basophils # (auto) 0.01 K/uL (0.00-0.20); Basophils % (auto) 0.3 %; Eosinophils # (auto) 0.04 K/uL (0.00-0.50); Eosinophils % (auto) 1.1 %; Hematocrit (blood only) 31.8 % (37.0-47.0); Hemoglobin 10.4 g/dl (12.0-16.0); Immature Granulocytes # (auto) 0.02 K/uL (0.01-0.20); Immature Granulocytes % (auto) 0.6 %; Lymphocytes # (auto) 0.62 K/uL (1.20-3.40); Lymphocytes % (auto) 17.8 %; Mean Corpuscular Hemoglobin 30.4 pg (25.0-34.0); Mean Corpuscular Hgb Conc 32.7 g/dL (32.0-36.0); Mean Platelet Volume 11.4 fL (9.4-12.4); Monocytes # (auto) 0.52 K/uL (0.11-0.59); Monocytes % (auto) 14.9 %; Neutrophils # (auto) 2.28 K/uL (1.40-6.50); Neutrophils % (auto) 65.3 %; Platelet Count 120 K/uL (130-400); RDW Standard Deviation 51.5 fL (36.4-46.3); Red Blood Count 3.42 M/uL (4.20-5.40); White Blood Count 3.49 K/ul (4.8-10.8)
[2023-07-11 06:47] LABS: BUN Creatinine Ratio 19.5 (10-20); Calcium 8.8 mg/dl (8.6-10.3); Creatinine Clr Calc Pharmacy 61.9 ml/min; Est GFR (African American) 78.3 ml/min; Est GFR (Non-African American) 67.6 ml/min; Potassium 3.5 mmol/L (3.5-5.1)
[2023-07-11 07:00] LABS: INR 1.3 (0.9-1.1); Partial Thromboplastin Ratio 2.1; Partial Thromboplastin Time 58.1 Seconds (21.0-31.0); Prothrombin Time 13.6 Seconds (9.0-12.0)
--- NOTE | 2023-07-11 07:52 | Hospitalist Progress Note ---
Date of Service July 11, 2023 Assessment & Plan (1) Heart failure, chronic, with acute decompensation: (2) Acute pulmonary embolism: (3) Elevated troponin: (4) UTI (urinary tract infection): (5) Hypokalemia: (6) Hypomagnesemia: (7) CKD (chronic kidney disease), stage III: (8) HTN (hypertension): (9) Iron deficiency anemia: (10) Lymphedema: (11) Chronic venous insufficiency: (12) JOSE (generalized anxiety disorder): (13) Restless leg syndrome: (14) NIKKI (obstructive sleep apnea): (15) Morbid obesity: Plan Pt is an 78yoF with PMHx significant for history of PE on chronic anticoagulation w/ warfarin, history of HFpEF, chronic lymphedema, CKD3, HTN, JOSE, NIKKI on BiPAP, anxiety, anemia of chronic disease, chronic venous insufficiency, hypothyroidism who presents with worsening SOB. Acute diastolic Heart failure States had been having chest pains but developed SOB the day of presentation. Hs troponin normal, no evidence of acute ischemia on EKG Started on intravenous lasix with Bumex held and nitro Overall she feels improved with chest pain resolved. She denies additional swelling in her legs from baseline. Echo performed this admission, possible pulmonary HTN to be followed as outpatient. Will stop IV diuretics and restart her oral bumex. Cont carvedilol per home regimen. Elevated troponin likely related to demand ischemia Acute PE posssibly related to subtherapeutic INR in setting of recent procedure requiring a stint off warfarin. heparin transitioned to apixaban cont apixaban, stop warfarin UTI (urinary tract infection) 2/2 pansensitive E coli Rocephin stopped, started Augmentin H/O c diff infection Continue daily po vancomycin with pt's recent h/o Cdiff Also on probiotics Hypokalemia Replace and monitor Continue home 10 mEq KCl twice daily for now, will likely need to increase home dose Hypomagnesemia Replace and monitor CKD (chronic kidney disease), stage III Baseline 0.8-1 Stable HTN (hypertension) chronic, controlled Continue carvedilol and bumex per home regimen. Iron deficiency anemia Baseline 11-12, chronic, stable Continue iron supplement Lymphedema Chronic venous insufficiency Chronic BLE edema cont loop diuretic therapy JOSE (generalized anxiety disorder) Continue home medications Restless leg syndrome chronic, stable Continue pramipexole NIKKI (obstructive sleep apnea) BiPAP at bedtime. Patient states often is unable to tolerate Diet: Low sodium DVT Prophylaxis: Heparin Full Code Dispo-transition her to oral medications overnight. She reports ambulating at her baseline and symptoms have resolved. Likely dc to home in am. [facility] and Anticipated Discharge Date Admission Date: July 09, 2023 Subjective 78 yo F admitted for chest pain 2/2 acute PE and UTI symptoms, found to be fluid overloaded and has been treated with intravenous diuretics for acute heart failure exacerbation. UTI symptoms have resolved. Chest pain has resolved IV abx changed to PO heparin drip switched to apixaban after gotti check of this with her pharmacist. Denies SOB and breathing well on room air. Physical Exam Physical Exam: CONSTITUTIONAL: morbid obesity, vitals as above, generally well-appearing, NAD EYES: normal conjunctivae, no scleral icterus ENT: external ear and nose normal, MMM NECK: trachea midline RESPIRATORY: clear to auscultation bilaterally, no crackles, rales or wheezes, normal respiratory effort CARDIOVASCULAR: regular rate and rhythm, S1 and 2 heard without murmurs, ga llops or rubs, no JVD, no peripheral edema CHEST: inspection of chest was normal GASTROINTESTINAL: soft, nontender, ND, no guarding MUSCULOSKELETAL: strength 5/5 throughout, head is normocephalic and atraumatic SKIN: warm and dry NEUROLOGIC: CN 2-12 grossly intact, no sensory deficit, normal cognition, normal speech, no tremor PSYCHIATRIC: alert cooperative and oriented to person, place and time. Euthymic mood, makes good eye contact, language grossly intact, recent and remote memory grossly intact. Results & Data Results & Data Vital Signs (Past 12 Hours) Vital Signs Temp Pulse Pulse Resp BP Pulse Ox O2 Del Method 07/11/23 07:47 37.1 C 64 16 102/64 92 Room Air 07/11/23 07:17 62 07/11/23 02:53 36.4 C L 57 L 18 125/67 94 Room Air 07/10/23 23:20 36.6 C 58 L 18 102/65 95 Room Air Laboratory Results Short CBC 07/11/23 Range/Units 06:04 WBC 3.49 L (4.8-10.8) K/ul Hgb 10.4 L (12.0-16.0) g/dl Hct 31.8 L (37.0-47.0) % Plt Count 120 L (130-400) K/uL BMP 07/11/23 06:04 Sodium 137 Potassium 3.5 Chloride 100 Carbon Dioxide 32 BUN 16 Creatinine 0.82 Glucose 108 H Calcium 8.8 Medications Administered Current Inpatient Medications Acetaminophen (Acetaminophen 325 Mg Tab) 650 mg PO Q4H PRN PRN Reason: Pain or Fever Stop: 08/08/23 14:48 Last Admin: 07/10/23 19:14 Dose: 650 mg Amitriptyline HCl (Amitriptyline Hcl 25 Mg Tab) 25 mg PO HS [facility] Stop: 08/08/23 20:59 Last Admin: 07/10/23 20:13 Dose: 25 mg Carvedilol (Carvedilol 12.5 Mg Tab) 12.5 mg PO BID [facility] Stop: 08/08/23 20:59 Last Admin: 07/10/23 20:14 Dose: 12.5 mg Clonazepam (Clonazepam 1 Mg Tab) 1 mg PO HS PRN PRN Reason: RLS Stop: 08/08/23 14:48 Clotrimazole (Clotrimazole Vaginal Cr 7 Appln/45 Gm Tube) 1 appln PV HS [facility] Stop: 07/16/23 20:59 Last Admin: 07/10/23 20:18 Dose: Not Given Colestipol HCl (Colestipol Hcl 1 Gm Tab) 2 gm PO AMHS@1000,2200 [facility] Stop: 08/08/23 21:59 Last Admin: 07/10/23 22:40 Dose: 2 gm Cyanocobalamin (Cyanocobalamin (B-12) 500 Mcg Tablet) 1,000 mcg PO DAILY [facility] Stop: 08/09/23 08:59 Last Admin: 07/10/23 08:48 Dose: 1,000 mcg Ferrous Sulfate (Ferrous Sulfate 325 Mg Tab) 325 mg PO DAILY [facility] Stop: 08/09/23 08:59 Last Admin: 07/10/23 08:49 Dose: 325 mg Furosemide (Furosemide 40 Mg/4 Ml Vial) 40 mg IV BIDM [facility] Stop: 08/08/23 17:59 Last Admin: 07/10/23 17:02 Dose: 40 mg Gabapentin (Gabapentin 100 Mg Cap) 200 mg PO TID [facility] Stop: 08/08/23 15:29 Last Admin: 07/10/23 20:15 Dose: 200 mg Ceftriaxone Sodium 2,000 mg/ (Dextrose) 70 mls @ 100 mls/hr IV Q24H [facility]; Protocol Stop: 07/15/23 08:59 Last Infusion: 07/10/23 09:46 Dose: Infused Heparin Sodium/Dextrose (Heparin Sodium/Dextrose) 25,000 units in 500 mls @ 27 mls/hr IV .[id number] [facility]; Protocol Stop: 08/08/23 17:59 Last Titration: 07/11/23 07:09 Dose: 1,350 units/hr, 27 mls/hr Levothyroxine Sodium (Levothyroxine Sodium 125 Mcg Tablet) 125 mcg PO DAILYBB [facility] Stop: 08/09/23 06:29 Last Admin: 07/11/23 05:40 Dose: 125 mcg Lorazepam (Lorazepam 0.5 Mg Tab) 0.5 mg PO TID PRN PRN Reason: Anxiety Stop: 08/08/23 14:48 Ondansetron HCl (Ondansetron Inj 2 Mg/Ml 2 Ml Vial) 4 mg IV Q6H PRN PRN Reason: Nausea Stop: 08/08/23 14:48 Pantoprazole Sodium (Pantoprazole 40 Mg Tab) 40 mg PO BID [facility] Stop: 08/08/23 20:59 Last Admin: 07/10/23 20:14 Dose: 40 mg Potassium Chloride (Potassium Chloride 10 Meq Tabcr) 10 meq PO BID [facility] Stop: 08/08/23 20:59 Last Admin: 07/10/23 20:14 Dose: 10 meq Pramipexole Dihydrochloride (Pramipexole Dihydrochlo 0.5 Mg Tab) 0.5 mg PO HS [facility] Stop: 08/08/23 20:59 Last Admin: 07/10/23 20:14 Dose: 0.5 mg Pramipexole Dihydrochloride (Pramipexole Dihydrochlo 0.25 Mg Tab) 0.25 mg PO DAILY@1400 [facility] Stop: 08/08/23 15:29 Last Admin: 07/10/23 13:44 Dose: 0.25 mg Raspberry (Raspberry Syrup 5 Ml Udp) 5 ml PO DAILY [facility] Stop: 07/19/23 14:59 Last Admin: 07/10/23 08:50 Dose: 5 ml Saccharomyces Boulardii (Saccharomyces Boulardii 250 Mg Cap) 250 mg PO BID [facility] Stop: 08/08/23 20:59 Last Admin: 07/10/23 20:13 Dose: 250 mg Vancomycin HCl (Vancomycin Hcl 125 Mg/2.5ml Soln) 125 mg PO DAILY [facility] Stop: 07/19/23 14:59 Last Admin: 07/10/23 08:56 Dose: 125 mg (1) Heart failure, chronic, with acute decompensation Heart failure type: diastolic Qualified Code(s): I50.33 - Acute on chronic diastolic (congestive) heart failure
[2023-07-11] MEDS: HEPARIN SODIUM/DEXTROSE 25,000 UNITS/500 ML BAG IV SCH (07:59)
[2023-07-11] MEDS: PANTOprazole 40 MG TAB PO SCH ×2 (08:01→20:37)
[2023-07-11] MEDS: RASPBERRY SYRUP 5 ML UDP PO SCH (08:02)
[2023-07-11] MEDS: FERROUS SULFATE 325 MG TAB PO SCH (08:06)
[2023-07-11] MEDS: SACCHAROMYCES BOULARDII 250 MG CAP PO SCH ×2 (08:06→20:37)
[2023-07-11] MEDS: carvediloL 12.5 MG TAB PO SCH ×2 (08:06→20:36)
[2023-07-11] MEDS: POTASSIUM CHLORIDE 10 MEQ TABCR PO SCH ×2 (08:06→20:38)
[2023-07-11] MEDS: GABAPENTIN 100 MG CAP PO SCH ×3 (08:06→20:36)
[2023-07-11] MEDS: FUROSEMIDE 40 MG/4 ML VIAL IV SCH ×2 (08:06→16:24)
[2023-07-11] MEDS: CYANOCOBALAMIN (B-12) 500 MCG TABLET PO SCH (08:06)
[2023-07-11] MEDS: VANCOMYCIN HCL 125 MG/2.5ML SOLN PO SCH (08:07)
[2023-07-11] MEDS: AMOXICILLIN/CLAVULANATE 500 MG TAB PO SCH ×2 (08:54→16:23)
[2023-07-11] MEDS: COLESTIPOL HCL 1 GM TAB PO SCH ×2 (10:07→21:52)
[2023-07-11] MEDS: PRAMIPEXOLE DIHYDROCHLO 0.25 MG TAB PO SCH (14:14)
[2023-07-11] MEDS: APIXABAN 5 MG TABLET PO SCH (20:36)
[2023-07-11] MEDS: AMITRIPTYLINE HCL 25 MG TAB PO SCH (20:37)
[2023-07-11] MEDS: PRAMIPEXOLE DIHYDROCHLO 0.5 MG TAB PO SCH (20:38)
[2023-07-11] MEDS: CLOTRIMAZOLE VAGINAL CR 7 APPLN/45 GM TUBE PV SCH (20:39)
[2023-07-11] MEDS ORDERED: STOP ORDER [HEPARIN DRIP] ONE (21:00)
[2023-07-12] MEDS: ACETAMINOPHEN 325 MG TAB PO PRN ×2 (04:32→23:05)
[2023-07-12] MEDS: LEVOTHYROXINE SODIUM 125 MCG TABLET PO SCH (05:47)
[2023-07-12 06:12] LABS: Hematocrit (blood only) 31.5 % (37.0-47.0); Hemoglobin 10.2 g/dl (12.0-16.0); Mean Corpuscular Hemoglobin 30.2 pg (25.0-34.0); Mean Corpuscular Hgb Conc 32.4 g/dL (32.0-36.0); Mean Corpuscular Volume 93.2 fL (80.0-100.0); Mean Platelet Volume 11.6 fL (9.4-12.4); Platelet Count 131 K/uL (130-400); RDW Coefficient of Variation 14.7 % (11.5-14.5); RDW Standard Deviation 51.1 fL (36.4-46.3); Red Blood Count 3.38 M/uL (4.20-5.40); White Blood Count 4.06 K/ul (4.8-10.8)
[2023-07-12 06:24] LABS: BUN Creatinine Ratio 15.5 (10-20); Calcium 9.1 mg/dl (8.6-10.3); Creatinine Clr Calc Pharmacy 60.3 ml/min; Est GFR (African American) 76.1 ml/min; Est GFR (Non-African American) 65.6 ml/min; Magnesium 1.7 mg/dl (1.7-2.4); Potassium 3.7 mmol/L (3.5-5.1)
[2023-07-12] MEDS: PANTOprazole 40 MG TAB PO SCH ×2 (08:51→20:40)
[2023-07-12] MEDS: BUMETANIDE 1 MG TAB PO SCH ×2 (08:52→17:38)
[2023-07-12] MEDS: RASPBERRY SYRUP 5 ML UDP PO SCH (08:52)
[2023-07-12] MEDS: POTASSIUM CHLORIDE CRTAB 20 MEQ TABCR PO SCH ×2 (08:52→20:41)
[2023-07-12] MEDS: FERROUS SULFATE 325 MG TAB PO SCH (08:53)
[2023-07-12] MEDS: carvediloL 12.5 MG TAB PO SCH ×2 (08:53→20:40)
[2023-07-12] MEDS: APIXABAN 5 MG TABLET PO SCH ×2 (08:53→20:40)
[2023-07-12] MEDS: AMOXICILLIN/CLAVULANATE 500 MG TAB PO SCH ×2 (08:53→17:39)
[2023-07-12] MEDS: SACCHAROMYCES BOULARDII 250 MG CAP PO SCH ×2 (08:53→20:40)
[2023-07-12] MEDS: GABAPENTIN 100 MG CAP PO SCH ×3 (08:53→20:40)
[2023-07-12] MEDS: CYANOCOBALAMIN (B-12) 500 MCG TABLET PO SCH (08:53)
[2023-07-12] MEDS: VANCOMYCIN HCL 125 MG/2.5ML SOLN PO SCH (08:59)
[2023-07-12] MEDS: COLESTIPOL HCL 1 GM TAB PO SCH ×2 (10:15→21:58)
[2023-07-12] MEDS ORDERED: LOPERAMIDE HCL 2 MG CAP PO STA (10:57)
--- NOTE | 2023-07-12 10:59 | Hospitalist Progress Note ---
Date of Service July 12, 2023 Assessment & Plan (1) Heart failure, chronic, with acute decompensation: (2) Acute pulmonary embolism: (3) Elevated troponin: (4) UTI (urinary tract infection): (5) Hypokalemia: (6) Hypomagnesemia: (7) CKD (chronic kidney disease), stage III: (8) HTN (hypertension): (9) Iron deficiency anemia: (10) Lymphedema: (11) Chronic venous insufficiency: (12) JOSE (generalized anxiety disorder): (13) Restless leg syndrome: (14) NIKKI (obstructive sleep apnea): (15) Morbid obesity: Plan Pt is an 78yoF with PMHx significant for history of PE on chronic anticoagulation w/ warfarin, history of HFpEF, chronic lymphedema, CKD3, HTN, JOSE, NIKKI on BiPAP, anxiety, anemia of chronic disease, chronic venous insufficiency, hypothyroidism who presents with worsening SOB. Acute diastolic Heart failure States had been having chest pains but developed SOB the day of presentation. Hs troponin normal, no evidence of acute ischemia on EKG Started on intravenous lasix with Bumex held and nitro Overall she feels improved with chest pain resolved. She denies additional swelling in her legs from baseline. Echo performed this admission, possible pulmonary HTN to be followed as outpatient. She appears compensated at this time. Will stop IV diuretics and restart her oral bumex. Cont carvedilol per home regimen. Elevated troponin likely related to demand ischemia no further cardiac workup at this time. Follow-up with PCP. Acute PE possibly related to subtherapeutic INR in setting of recent procedure requiring a stint off warfarin. H/o long-term anticoagulation 2/2 previous VTE heparin transitioned to apixaban cont apixaban, stop warfarin UTI (urinary tract infection) 2/2 pansensitive E coli Rocephin stopped, started Augmentin, tolerating well. H/O c diff infection Continue daily po vancomycin with pt's recent h/o Cdiff Also on probiotics Hypokalemia Replace and monitor Continue home 10 mEq KCl twice daily for now, will likely need to increase home dose Hypomagnesemia Replace and monitor CKD (chronic kidney disease), stage III Baseline 0.8-1 Stable HTN (hypertension) chronic, controlled Continue carvedilol and bumex per home regimen. Iron deficiency anemia Baseline 11-12, chronic, stable Continue iron supplement Lymphedema Chronic venous insufficiency Chronic BLE edema cont loop diuretic therapy JOSE (generalized anxiety disorder) Continue home medications Restless leg syndrome chronic, stable. Continue pramipexole NIKKI (obstructive sleep apnea) BiPAP at bedtime. Patient states often is unable to tolerate Diet: Low sodium DVT Prophylaxis: Heparin Full Code Dispo-to home when she is feeling better and loose stool has improved. Likely next 1-2 days. DO Lili Wagner Hospitalist Admission and Anticipated Discharge Date Admission Date: July 09, 2023 Subjective 78 yo F admitted for chest pain 2/2 acute PE and UTI symptoms, found to be fluid overloaded and has been treated with intravenous diuretics for acute heart failure exacerbation. +diarrhea present, +abdominal bloating afebrile states not ready to go home yet. No issues wtih the PO Augmentin Denies SOB and breathing well on room air. some increased swelling in the LLE this morning. Physical Exam Physical Exam: CONSTITUTIONAL: morbid obesity, vitals as above, generally well-appearing, NAD EYES: normal conjunctivae, no scleral icterus ENT: external ear and nose normal, MMM NECK: trachea midline RESPIRATORY: clear to auscultation bilaterally, no crackles, rales or wheezes, normal respiratory effort CARDIOVASCULAR: regular rate and rhythm, S1 and 2 heard without murmurs, gallops or rubs, no JVD, no peripheral edema CHEST: inspection of chest was normal GASTROINTESTINAL: soft, nontender, ND, no guarding MUSCULOSKELETAL: strength 5/5 throughout, head is normocephalic and atraumatic SKIN: warm and dry NEUROLOGIC: CN 2-12 grossly intact, no sensory deficit, normal cognition, normal speech, no tremor PSYCHIATRIC: alert cooperative and oriented to person, place and time. Euthymic mood, makes good eye contact, language grossly intact, recent and remote memory grossly intact. Results & Data Results & Data Vital Signs (Past 12 Hours) Vital Signs Temp Pulse Pulse Resp BP BP Pulse Ox 07/12/23 08:50 07/12/23 07:47 36.9 C 72 19 128/78 95 07/12/23 07:46 64 07/12/23 03:11 36.7 C 62 18 121/62 99 07/12/23 03:09 36.5 C 69 18 138/62 97 07/12/23 00:28 36.9 C 71 18 109/71 93 O2 Del Method 07/12/23 08:50 Room Air 07/12/23 07:47 Room Air 07/12/23 07:46 07/12/23 03:11 Room Air 07/12/23 03:09 Room Air 07/12/23 00:28 Room Air Laboratory Results Short CBC 07/12/23 Range/Units 05:38 WBC 4.06 L (4.8-10.8) K/ul Hgb 10.2 L (12.0-16.0) g/dl Hct 31.5 L (37.0-47.0) % Plt Count 131 (130-400) K/uL BMP 07/12/23 05:38 Sodium 138 Potassium 3.7 Chloride 100 Carbon Dioxide 33 H BUN 13 Creatinine 0.84 Glucose 105 H Calcium 9.1 Medications Administered Current Inpatient Medications Acetaminophen (Acetaminophen 325 Mg Tab) 650 mg PO Q4H PRN PRN Reason: Pain or Fever Stop: 08/08/23 14:48 Last Admin: 07/12/23 04:32 Dose: 650 mg Amitriptyline HCl (Amitriptyline Hcl 25 Mg Tab) 25 mg PO HS [facility] Stop: 08/08/23 20:59 Last Admin: 07/11/23 20:37 Dose: 25 mg Amoxicillin/Clavulanate Potassium (Amoxicillin/Clavulanate 500 Mg Tab) 1 tab PO BIDM [facility]; Protocol Stop: 07/16/23 08:14 Last Admin: 07/12/23 08:53 Dose: 1 tab Apixaban (Apixaban 5 Mg Tablet) 10 mg PO BID [facility] Stop: 07/18/23 09:01 Last Admin: 07/12/23 08:53 Dose: 10 mg Bumetanide (Bumetanide 1 Mg Tab) 2 mg PO BID17 [facility] Stop: 08/11/23 08:59 Last Admin: 07/12/23 08:52 Dose: 2 mg Carvedilol (Carvedilol 12.5 Mg Tab) 12.5 mg PO BID [facility] Stop: 08/08/23 20:59 Last Admin: 07/12/23 08:53 Dose: 12.5 mg Clonazepam (Clonazepam 1 Mg Tab) 1 mg PO HS PRN PRN Reason: RLS Stop: 08/08/23 14:48 Clotrimazole (Clotrimazole Vaginal Cr 7 Appln/45 Gm Tube) 1 appln PV HS [facility] Stop: 07/16/23 20:59 Last Admin: 07/11/23 20:39 Dose: Not Given Colestipol HCl (Colestipol Hcl 1 Gm Tab) 2 gm PO AMHS@1000,2200 [facility] Stop: 08/08/23 21:59 Last Admin: 07/12/23 10:15 Dose: 2 gm Cyanocobalamin (Cyanocobalamin (B-12) 500 Mcg Tablet) 1,000 mcg PO DAILY [facility] Stop: 08/09/23 08:59 Last Admin: 07/12/23 08:53 Dose: 1,000 mcg Ferrous Sulfate (Ferrous Sulfate 325 Mg Tab) 325 mg PO DAILY [facility] Stop: 08/09/23 08:59 Last Admin: 07/12/23 08:53 Dose: 325 mg Gabapentin (Gabapentin 100 Mg Cap) 200 mg PO TID [facility] Stop: 08/08/23 15:29 Last Admin: 07/12/23 08:53 Dose: 200 mg Levothyroxine Sodium (Levothyroxine Sodium 125 Mcg Tablet) 125 mcg PO DAILYBB [facility] Stop: 08/09/23 06:29 Last Admin: 07/12/23 05:47 Dose: 125 mcg Loperamide HCl (Loperamide Hcl 2 Mg Cap) 2 mg PO NOW [facility] Stop: 07/12/23 10:58 Lorazepam (Lorazepam 0.5 Mg Tab) 0.5 mg PO TID PRN PRN Reason: Anxiety Stop: 08/08/23 14:48 Ondansetron HCl (Ondansetron Inj 2 Mg/Ml 2 Ml Vial) 4 mg IV Q6H PRN PRN Reason: Nausea Stop: 08/08/23 14:48 Pantoprazole Sodium (Pantoprazole 40 Mg Tab) 40 mg PO BID [facility] Stop: 08/08/23 20:59 Last Admin: 07/12/23 08:51 Dose: Not Given Potassium Chloride (Potassium Chloride Crtab 20 Meq Tabcr) 20 meq PO BID [facility] Stop: 08/11/23 08:59 Last Admin: 07/12/23 08:52 Dose: 20 meq Pramipexole Dihydrochloride (Pramipexole Dihydrochlo 0.5 Mg Tab) 0.5 mg PO HS [facility] Stop: 08/08/23 20:59 Last Admin: 07/11/23 20:38 Dose: 0.5 mg Pramipexole Dihydrochloride (Pramipexole Dihydrochlo 0.25 Mg Tab) 0.25 mg PO DAILY@1400 [facility] Stop: 08/08/23 15:29 Last Admin: 07/11/23 14:14 Dose: 0.25 mg Raspberry (Raspberry Syrup 5 Ml Udp) 5 ml PO DAILY [facility] Stop: 07/19/23 14:59 Last Admin: 07/12/23 08:52 Dose: 5 ml Saccharomyces Boulardii (Saccharomyces Boulardii 250 Mg Cap) 250 mg PO BID [facility] Stop: 08/08/23 20:59 Last Admin: 07/12/23 08:53 Dose: 250 mg Vancomycin HCl (Vancomycin Hcl 125 Mg/2.5ml Soln) 125 mg PO DAILY [facility] Stop: 07/19/23 14:59 Last Admin: 07/12/23 08:59 Dose: 125 mg (1) Heart failure, chronic, with acute decompensation Heart failure type: diastolic Qualified Code(s): I50.33 - Acute on chronic diastolic (congestive) heart failure
[2023-07-12] MEDS: PRAMIPEXOLE DIHYDROCHLO 0.25 MG TAB PO SCH (14:56)
--- NOTE | 2023-07-12 15:06 | Ultrasound Report ---
US venous doppler LE BI CLINICAL HISTORY: r/o dvt TECHNIQUE: Bilateral lower extremity real-time compression venous ultrasound with Color Doppler imagi ng. Utilizing real-time ultrasonic imaging multiple real time high-resolution ultrasonic images with compression and noncompression maneuvers of the deep venous system in addition to color doppler imagi ng were performed from the common femoral vein through the proximal calf veins. COMPARISON: None available at the time of this dictation. FINDINGS/IMPRESSION: Currently there is normal compressibility of the deep venous system from the common femoral vein thro ugh the proximal calf veins. No superficial venous thrombosis is identified. ACT 112: Negative or not required by law. Electronically signed by: Andres Lim M.D. 07/12/2023 3:05 PM
[2023-07-12] MEDS: AMITRIPTYLINE HCL 25 MG TAB PO SCH (20:39)
[2023-07-12] MEDS: PRAMIPEXOLE DIHYDROCHLO 0.5 MG TAB PO SCH (20:40)
[2023-07-12] MEDS: CLOTRIMAZOLE VAGINAL CR 7 APPLN/45 GM TUBE PV SCH (20:42)
[2023-07-13] MEDS: LEVOTHYROXINE SODIUM 125 MCG TABLET PO SCH (05:39)
--- NOTE | 2023-07-13 05:51 | Electrocardiogram Report ---
Test Reason : Blood Pressure : / mmHG Vent. Rate : 064 BPM Atrial Rate : 064 BPM P-R Int : 212 ms QRS Dur : 146 ms QT Int : 474 ms P-R-T Axes : 027 005 -16 degrees QTc Int : 489 ms Sinus rhythm with 1st degree A-V block Right bundle branch block T wave abnormality, consider inferior ischemia Abnormal ECG When compared with ECG of 09-JUL-2023 09:54, Premature atrial complexes are no longer Present Criteria for Inferior infarct are no longer Present Confirmed by Claudio Perez ([id number]) on 07/13/2023 5:51:06 AM Referred By: REFERRED SELF Confirmed By:Claudio Perez
[2023-07-13] MEDS: PANTOprazole 40 MG TAB PO SCH ×2 (08:19→20:39)
[2023-07-13] MEDS: POTASSIUM CHLORIDE CRTAB 20 MEQ TABCR PO SCH ×2 (08:19→20:44)
[2023-07-13] MEDS: VANCOMYCIN HCL 125 MG/2.5ML SOLN PO SCH (08:19)
[2023-07-13] MEDS: RASPBERRY SYRUP 5 ML UDP PO SCH (08:19)
[2023-07-13] MEDS: SACCHAROMYCES BOULARDII 250 MG CAP PO SCH ×2 (08:19→20:42)
[2023-07-13] MEDS: carvediloL 12.5 MG TAB PO SCH ×2 (08:19→20:44)
[2023-07-13] MEDS: BUMETANIDE 1 MG TAB PO SCH ×2 (08:20→17:54)
[2023-07-13] MEDS: CYANOCOBALAMIN (B-12) 500 MCG TABLET PO SCH (08:20)
[2023-07-13] MEDS: APIXABAN 5 MG TABLET PO SCH ×2 (08:20→20:43)
[2023-07-13] MEDS: FERROUS SULFATE 325 MG TAB PO SCH (08:20)
[2023-07-13] MEDS: GABAPENTIN 100 MG CAP PO SCH ×3 (08:20→20:43)
[2023-07-13] MEDS: AMOXICILLIN/CLAVULANATE 500 MG TAB PO SCH ×2 (08:20→17:54)
[2023-07-13] MEDS: COLESTIPOL HCL 1 GM TAB PO SCH ×2 (09:41→21:47)
[2023-07-13] MEDS ORDERED: MICONAZOLE NITRATE POWDER 85 GM EXT PRN (10:18)
[2023-07-13 11:19] LABS: Cdiff Toxin B Gene (2yr or >) Positive Cdiff Gene (Neg)
[2023-07-13 12:32] LABS: Cdiff Antigen Positive; Cdiff Toxin A+B Negative Cdiff Toxin (Negative)
[2023-07-13] MEDS: PRAMIPEXOLE DIHYDROCHLO 0.25 MG TAB PO SCH (14:14)
[2023-07-13] MEDS: ACETAMINOPHEN 325 MG TAB PO PRN (14:14)
--- NOTE | 2023-07-13 20:26 | Hospitalist Progress Note ---
Date of Service July 13, 2023 Assessment & Plan (1) Heart failure, chronic, with acute decompensation: (2) Acute pulmonary embolism: (3) Elevated troponin: (4) UTI (urinary tract infection): (5) Hypokalemia: (6) Hypomagnesemia: (7) CKD (chronic kidney disease), stage III: (8) HTN (hypertension): (9) Iron deficiency anemia: (10) Lymphedema: (11) Chronic venous insufficiency: (12) JOSE (generalized anxiety disorder): (13) Restless leg syndrome: (14) NIKKI (obstructive sleep apnea): (15) Morbid obesity: Plan Pt is an 78yoF with PMHx significant for history of PE on chronic anticoagulation w/ warfarin, history of HFpEF, chronic lymphedema, CKD3, HTN, JOSE, NIKKI on BiPAP, anxiety, anemia of chronic disease, chronic venous insufficiency, hypothyroidism who presents with worsening SOB. Acute diastolic Heart failure States had been having chest pains but developed SOB the day of presentation. Hs troponin normal, no evidence of acute ischemia on EKG Started on intravenous lasix with Bumex held and nitro Overall she feels improved with chest pain resolved. She denies additional swelling in her legs from baseline. Echo performed this admission, possible pulmonary HTN to be followed as outpatient. She appears compensated at this time. IV diuretics stopped and she continues on her home Bumex Cont carvedilol per home regimen. Elevated troponin likely related to demand ischemia no further cardiac workup at this time. Follow-up with PCP. Acute PE possibly related to subtherapeutic INR in setting of recent procedure requiring a stint off warfarin. H/o long-term anticoagulation 2/2 previous VTE heparin transitioned to apixaban cont apixaban, stop warfarin UTI (urinary tract infection) 2/2 pansensitive E coli Rocephin stopped, started Augmentin, tolerating well. H/O c diff infection Continue daily po vancomycin with pt's recent h/o Cdiff Also on probiotics Hypokalemia Replace and monitor Continue home 10 mEq KCl twice daily for now, will likely need to increase home dose Hypomagnesemia Replace and monitor CKD (chronic kidney disease), stage III Baseline 0.8-1 Stable HTN (hypertension) chronic, controlled Continue carvedilol and bumex per home regimen. Iron deficiency anemia Baseline 11-12, chronic, stable Continue iron supplement Lymphedema Chronic venous insufficiency Chronic BLE edema cont loop diuretic therapy JOSE (generalized anxiety disorder) Continue home medications Restless leg syndrome chronic, stable. Continue pramipexole NIKKI (obstructive sleep apnea) BiPAP at bedtime. Patient states often is unable to tolerate Diet: Low sodium DVT Prophylaxis: Heparin Full Code Dispo-to home when she is feeling better and loose stool has improved. Likely next 1-2 days. DO Lili Wagner Hospitalist Admission and Anticipated Discharge Date Admission Date: July 09, 2023 Subjective 78 yo F admitted for chest pain 2/2 acute PE and UTI symptoms, found to be fluid overloaded and has been treated with intravenous diuretics for acute heart failure exacerbation. +diarrhea present, +abdominal bloating afebrile states not ready to go home yet. Denies SOB and breathing well on room air. reviewed stool studies and US leg with her today Physical Exam Physical Exam: CONSTITUTIONAL: morbid obesity, vitals as above, generally well-appearing, NAD EYES: normal conjunctivae, no scleral icterus ENT: external ear and nose normal, MMM NECK: trachea midline RESPIRATORY: clear to auscultation bilaterally, no crackles, rales or wheezes, normal respiratory effort CARDIOVASCULAR: regular rate and rhythm, S1 and 2 heard without murmurs, gallops or rubs, no JVD, no peripheral edema CHEST: inspection of chest was normal GASTROINTESTINAL: soft, nontender, ND, no guarding MUSCULOSKELETAL: strength 5/5 throughout, head is normocephalic and atraumatic SKIN: warm and dry NEUROLOGIC: CN 2-12 grossly intact, no sensory deficit, normal cognition, normal speech, no tremor PSYCHIATRIC: alert cooperative and oriented to person, place and time. Euthymic mood, makes good eye contact, language grossly intact, recent and rem ote memory grossly intact. Results & Data Results & Data Vital Signs (Past 12 Hours) Vital Signs Temp Pulse Resp BP Pulse Ox O2 Del Method 07/13/23 15:38 36.7 C 76 19 100/65 95 Room Air 07/13/23 11:40 36.9 C 71 18 145/80 H 91 Room Air Medications Administered Current Inpatient Medications Acetaminophen (Acetaminophen 325 Mg Tab) 650 mg PO Q4H PRN PRN Reason: Pain or Fever Stop: 08/08/23 14:48 Last Admin: 07/13/23 14:14 Dose: 650 mg Amitriptyline HCl (Amitriptyline Hcl 25 Mg Tab) 25 mg PO HS [facility] Stop: 08/08/23 20:59 Last Admin: 07/12/23 20:39 Dose: 25 mg Amoxicillin/Clavulanate Potassium (Amoxicillin/Clavulanate 500 Mg Tab) 1 tab PO BIDM DOMINIQUE; Protocol Stop: 07/16/23 08:14 Last Admin: 07/13/23 17:54 Dose: 1 tab Apixaban (Apixaban 5 Mg Tablet) 10 mg PO BID DOMINIQUE Stop: 07/18/23 09:01 Last Admin: 07/13/23 08:20 Dose: 10 mg Bumetanide (Bumetanide 1 Mg Tab) 2 mg PO BID17 [facility] Stop: 08/11/23 08:59 Last Admin: 07/13/23 17:54 Dose: 2 mg Carvedilol (Carvedilol 12.5 Mg Tab) 12.5 mg PO BID DOMINIQUE Stop: 08/08/23 20:59 Last Admin: 07/13/23 08:19 Dose: 12.5 mg Clonazepam (Clonazepam 1 Mg Tab) 1 mg PO HS PRN PRN Reason: RLS Stop: 08/08/23 14:48 Clotrimazole (Clotrimazole Vaginal Cr 7 Appln/45 Gm Tube) 1 appln PV HS [facility] Stop: 07/16/23 20:59 Last Admin: 07/12/23 20:42 Dose: Not Given Colestipol HCl (Colestipol Hcl 1 Gm Tab) 2 gm PO AMHS@1000,2200 [facility] Stop: 08/08/23 21:59 Last Admin: 07/13/23 09:41 Dose: 2 gm Cyanocobalamin (Cyanocobalamin (B-12) 500 Mcg Tablet) 1,000 mcg PO DAILY [facility] Stop: 08/09/23 08:59 Last Admin: 07/13/23 08:20 Dose: 1,000 mcg Ferrous Sulfate (Ferrous Sulfate 325 Mg Tab) 325 mg PO DAILY [facility] Stop: 08/09/23 08:59 Last Admin: 07/13/23 08:20 Dose: 325 mg Gabapentin (Gabapentin 100 Mg Cap) 200 mg PO TID [facility] Stop: 08/08/23 15:29 Last Admin: 07/13/23 14:14 Dose: 200 mg Levothyroxine Sodium (Levothyroxine Sodium 125 Mcg Tablet) 125 mcg PO DAILYBB [facility] Stop: 08/09/23 06:29 Last Admin: 07/13/23 05:39 Dose: 125 mcg Lorazepam (Lorazepam 0.5 Mg Tab) 0.5 mg PO TID PRN PRN Reason: Anxiety Stop: 08/08/23 14:48 Miconazole Nitrate (Miconazole Nitrate Powder 85 Gm) 1 appln EXT PRN PRN PRN Reason: Affected Skin Folds Stop: 08/12/23 10:17 Ondansetron HCl (Ondansetron Inj 2 Mg/Ml 2 Ml Vial) 4 mg IV Q6H PRN PRN Reason: Nausea Stop: 08/08/23 14:48 Pantoprazole Sodium (Pantoprazole 40 Mg Tab) 40 mg PO BID [facility] Stop: 08/08/23 20:59 Last Admin: 07/13/23 08:19 Dose: 40 mg Potassium Chloride (Potassium Chloride Crtab 20 Meq Tabcr) 20 meq PO BID [facility] Stop: 08/11/23 08:59 Last Admin: 07/13/23 08:19 Dose: 20 meq Pramipexole Dihydrochloride (Pramipexole Dihydrochlo 0.5 Mg Tab) 0.5 mg PO HS [facility] Stop: 08/08/23 20:59 Last Admin: 07/12/23 20:40 Dose: 0.5 mg Pramipexole Dihydrochloride (Pramipexole Dihydrochlo 0.25 Mg Tab) 0.25 mg PO DAILY@1400 [facility] Stop: 08/08/23 15:29 Last Admin: 07/13/23 14:14 Dose: 0.25 mg Raspberry (Raspberry Syrup 5 Ml Udp) 5 ml PO DAILY [facility] Stop: 07/19/23 14:59 Last Admin: 07/13/23 08:19 Dose: 5 ml Saccharomyces Boulardii (Saccharomyces Boulardii 250 Mg Cap) 250 mg PO BID [facility] Stop: 08/08/23 20:59 Last Admin: 07/13/23 08:19 Dose: 250 mg Vancomycin HCl (Vancomycin Hcl 125 Mg/2.5ml Soln) 125 mg PO DAILY [facility] Stop: 07/19/23 14:59 Last Admin: 07/13/23 08:19 Dose: 125 mg (1) Heart failure, chronic, with acute decompensation Heart failure type: diastolic Qualified Code(s): I50.33 - Acute on chronic diastolic (congestive) heart failure
[2023-07-13] MEDS: CLOTRIMAZOLE VAGINAL CR 7 APPLN/45 GM TUBE PV SCH (20:38)
[2023-07-13] MEDS: PRAMIPEXOLE DIHYDROCHLO 0.5 MG TAB PO SCH (20:42)
[2023-07-13] MEDS: AMITRIPTYLINE HCL 25 MG TAB PO SCH (20:43)
[2023-07-14] MEDS: ACETAMINOPHEN 325 MG TAB PO PRN ×2 (03:48→22:04)
[2023-07-14] MEDS: LEVOTHYROXINE SODIUM 125 MCG TABLET PO SCH (05:30)
[2023-07-14] MEDS: PANTOprazole 40 MG TAB PO SCH ×2 (08:51→19:33)
[2023-07-14] MEDS: carvediloL 12.5 MG TAB PO SCH ×2 (08:52→19:29)
[2023-07-14] MEDS: AMOXICILLIN/CLAVULANATE 500 MG TAB PO SCH ×2 (08:53→17:32)
[2023-07-14] MEDS: SACCHAROMYCES BOULARDII 250 MG CAP PO SCH ×2 (08:53→19:29)
[2023-07-14] MEDS: APIXABAN 5 MG TABLET PO SCH ×2 (08:54→19:30)
[2023-07-14] MEDS: CYANOCOBALAMIN (B-12) 500 MCG TABLET PO SCH (08:55)
[2023-07-14] MEDS: FERROUS SULFATE 325 MG TAB PO SCH (08:55)
[2023-07-14] MEDS: BUMETANIDE 1 MG TAB PO SCH ×2 (08:55→17:32)
[2023-07-14] MEDS: GABAPENTIN 100 MG CAP PO SCH ×3 (08:55→19:27)
[2023-07-14] MEDS: POTASSIUM CHLORIDE CRTAB 20 MEQ TABCR PO SCH ×2 (08:55→19:31)
[2023-07-14] MEDS: VANCOMYCIN HCL 125 MG/2.5ML SOLN PO SCH (10:00)
[2023-07-14] MEDS: COLESTIPOL HCL 1 GM TAB PO SCH ×2 (10:00→22:05)
[2023-07-14] MEDS: RASPBERRY SYRUP 5 ML UDP PO SCH (10:00)
[2023-07-14] MEDS ORDERED: DIPHENOXYLATE/ATROPINE 2.5/0.025MG TAB PO ONE (10:30)
[2023-07-14] MEDS: PRAMIPEXOLE DIHYDROCHLO 0.25 MG TAB PO SCH (14:01)
[2023-07-14] MEDS: AMITRIPTYLINE HCL 25 MG TAB PO SCH (19:29)
[2023-07-14] MEDS: PRAMIPEXOLE DIHYDROCHLO 0.5 MG TAB PO SCH (19:29)
[2023-07-14] MEDS: CLOTRIMAZOLE VAGINAL CR 7 APPLN/45 GM TUBE PV SCH (19:34)
--- NOTE | 2023-07-14 20:59 | Hospitalist Progress Note ---
Date of Service July 14, 2023 Assessment & Plan (1) Heart failure, chronic, with acute decompensation: (2) Acute pulmonary embolism: (3) Elevated troponin: (4) UTI (urinary tract infection): (5) Hypokalemia: (6) Hypomagnesemia: (7) CKD (chronic kidney disease), stage III: (8) HTN (hypertension): (9) Iron deficiency anemia: (10) Lymphedema: (11) Chronic venous insufficiency: (12) JOSE (generalized anxiety disorder): (13) Restless leg syndrome: (14) NIKKI (obstructive sleep apnea): (15) Morbid obesity: Plan Pt is an 78yoF with PMHx significant for history of PE on chronic anticoagulation w/ warfarin, history of HFpEF, chronic lymphedema, CKD3, HTN, JOSE, NIKKI on BiPAP, anxiety, anemia of chronic disease, chronic venous insufficiency, hypothyroidism who presents with worsening SOB. Acute diastolic Heart failure States had been having chest pains but developed SOB the day of presentation. Hs troponin normal, no evidence of acute ischemia on EKG Started on intravenous lasix with Bumex held and nitro Overall she feels improved with chest pain resolved. She denies additional swelling in her legs from baseline. Echo performed this admission, possible pulmonary HTN to be followed as outpatient. She appears compensated at this time. IV diuretics stopped and she continues on her home Bumex Cont carvedilol per home regimen. H/O c diff infection/Diarrhea c diff gene positive, toxin negative Continue daily po vancomycin with pt's recent h/o Cdiff Also on probiotics Given one does of lomotil PRN Immodium ordered for us Elevated troponin likely related to demand ischemia no further cardiac workup at this time. Follow-up with PCP. Acute PE possibly related to subtherapeutic INR in setting of recent procedure requiring a stint off warfarin. H/o long-term anticoagulation 2/2 previous VTE heparin transitioned to apixaban cont apixaban, stop warfarin UTI (urinary tract infection) 2/2 pansensitive E coli Rocephin stopped, started Augmentin, tolerating well. Hypokalemia Replace and monitor Continue home 10 mEq KCl twice daily for now, will likely need to increase home dose Hypomagnesemia Replace and monitor CKD (chronic kidney disease), stage III Baseline 0.8-1 Stable HTN (hypertension) chronic, controlled Continue carvedilol and bumex per home regimen. Iron deficiency anemia Baseline 11-12, chronic, stable Continue iron supplement Lymphedema Chronic venous insufficiency Chronic BLE edema cont loop diuretic therapy JOSE (generalized anxiety disorder) Continue home medications Restless leg syndrome chronic, stable. Continue pramipexole NIKKI (obstructive sleep apnea) BiPAP at bedtime. Patient states often is unable to tolerate Diet: Low sodium DVT Prophylaxis: Heparin Full Code Dispo-to home when she is feeling better and loose stool has improved. Likely next 1-2 days. Admission and Anticipated Discharge Date Admission Date: July 09, 2023 Subjective States that her only problem is the diarrhea. Would prefer to not have to go multiple times during the day. States that she does not want to go home on Tuesday as there is a game and she does not want to be stuck in traffic. Would like treatment for the diarrhea today and be discharged tomorrow. Review of Systems Review of Systems: All systems reviewed & are unremarkable except as noted in Subjective Physical Exam Physical Exam: General: Alert, oriented. No acute distress Skin: Some erythema to lower extremities especially on the right Psych: Appropriate mood and affect Neuro: No gross deficits HEENT: NC/AT CV: RRR Resp: Breath sounds decreased bilaterally but could be due to body habitus, sounded clear, no increased effort of breathing. Abdomen: Soft, nontender, nondistended. Extremities: +++ edema in lower extremities bilaterally. Results & Data Results & Data Vital Signs (Past 12 Hours) Vital Signs Temp Pulse Resp BP O2 Del Method 07/14/23 07:54 36.8 C 75 16 131/88 Room Air (1) Heart failure, chronic, with acute decompensation Heart failure type: diastolic Qualified Code(s): I50.33 - Acute on chronic diastolic (congestive) heart failure
[2023-07-15] MEDS: LEVOTHYROXINE SODIUM 125 MCG TABLET PO SCH (05:32)
[2023-07-15] MEDS: AMOXICILLIN/CLAVULANATE 500 MG TAB PO SCH ×2 (08:45→17:07)
[2023-07-15] MEDS: CYANOCOBALAMIN (B-12) 500 MCG TABLET PO SCH (08:46)
[2023-07-15] MEDS: POTASSIUM CHLORIDE CRTAB 20 MEQ TABCR PO SCH ×2 (08:46→20:53)
[2023-07-15] MEDS: PANTOprazole 40 MG TAB PO SCH ×2 (08:46→20:51)
[2023-07-15] MEDS: BUMETANIDE 1 MG TAB PO SCH ×2 (08:46→17:07)
[2023-07-15] MEDS: FERROUS SULFATE 325 MG TAB PO SCH (08:46)
[2023-07-15] MEDS: APIXABAN 5 MG TABLET PO SCH ×2 (08:46→20:50)
[2023-07-15] MEDS: SACCHAROMYCES BOULARDII 250 MG CAP PO SCH ×2 (08:46→20:53)
[2023-07-15] MEDS: GABAPENTIN 100 MG CAP PO SCH ×3 (08:46→20:52)
[2023-07-15] MEDS: carvediloL 12.5 MG TAB PO SCH ×2 (08:46→20:52)
[2023-07-15] MEDS: CHERRY SYRUP 5 ML UDP PO SCH (08:55)
[2023-07-15] MEDS: VANCOMYCIN HCL 125 MG/2.5ML SOLN PO SCH (08:55)
[2023-07-15] MEDS: COLESTIPOL HCL 1 GM TAB PO SCH ×2 (08:56→22:28)
[2023-07-15 09:02] LABS: BUN Creatinine Ratio 17.9 (10-20); Calcium 9.6 mg/dl (8.6-10.3); Est GFR (African American) 76.1 ml/min; Est GFR (Non-African American) 65.6 ml/min
[2023-07-15] MEDS: LOPERAMIDE HCL 2 MG CAP PO PRN (11:40)
[2023-07-15] MEDS: PRAMIPEXOLE DIHYDROCHLO 0.25 MG TAB PO SCH (13:47)
--- NOTE | 2023-07-15 15:23 | Hospitalist Progress Note ---
Date of Service July 15, 2023 Assessment & Plan (1) Heart failure, chronic, with acute decompensation: (2) Acute pulmonary embolism: (3) Elevated troponin: (4) UTI (urinary tract infection): (5) Hypokalemia: (6) Hypomagnesemia: (7) CKD (chronic kidney disease), stage III: (8) HTN (hypertension): (9) Iron deficiency anemia: (10) Lymphedema: (11) Chronic venous insufficiency: (12) JOSE (generalized anxiety disorder): (13) Restless leg syndrome: (14) NIKKI (obstructive sleep apnea): (15) Morbid obesity: Plan Pt is an 78yoF with PMHx significant for history of PE on chronic anticoagulation w/ warfarin, history of HFpEF, chronic lymphedema, CKD3, HTN, JOSE, NIKKI on BiPAP, anxiety, anemia of chronic disease, chronic venous insufficiency, hypothyroidism who presents with worsening SOB. Acute diastolic Heart failure States had been having chest pains but developed SOB the day of presentation. Hs troponin normal, no evidence of acute ischemia on EKG Echo performed this admission, possible pulmonary HTN to be followed as outpatient. She appears compensated at this time. IV diuretics stopped and she continues on her home Bumex Cont carvedilol per home regimen. H/O c diff infection/Diarrhea H/o C diff in April, diarrhea recurred at the beginning of June after PO antibiotic c diff gene positive, toxin negative Instructed to coomplete daily PO vanco x [address] Stephens on 06/23 Diarrhea recurred during admission once abx started for UTI and PO vanco daily was resumed Diarrhea persists despite once daily PO vanco, probiotics, Colestipol BID, Imodium PRN Discussed with GI service who will see tomorrow - recommend repeating c diff in case toxin positive, Dificid could be another tx option. No indication to repeat abd imaging at this time as no leukocytosis, no abd pain Elevated troponin likely related to demand ischemia no further cardiac workup at this time. Follow-up with PCP. Acute PE possibly related to subtherapeutic INR in setting of recent procedure requiring a stint off warfarin. H/o long-term anticoagulation 2/2 previous VTE heparin transitioned to apixaban cont apixaban, stop warfarin UTI (urinary tract infection) 2/2 pansensitive E coli Rocephin stopped, started Augmentin, tolerating well (on day #5) Hypokalemia Replace and monitor Continue home 10 mEq KCl twice daily for now, will likely need to increase home dose Hypomagnesemia Replace and monitor CKD (chronic kidney disease), stage III Baseline 0.8-1 Stable HTN (hypertension) Chronic, controlled Continue carvedilol and bumex per home regimen Iron deficiency anemia Baseline 11-12, chronic, stable Continue iron supplement Lymphedema Chronic venous insufficiency Chronic BLE edema Cont loop diuretic therapy JOSE (generalized anxiety disorder) Continue home medications Restless leg syndrome Chronic, stable. Continue pramipexole NIKKI (obstructive sleep apnea) BiPAP at bedtime. Patient states often is unable to tolerate Diet: Low sodium DVT Prophylaxis: Heparin Full Code Dispo-to home when she is feeling better and loose stool has improved. Likely next 1-2 days. Admission and Anticipated Discharge Date Admission Date: July 09, 2023 Supervising Physician Co-Signing Physician Notes I have seen and discussed the case with the collaborating LONNIE. I agree with the above H&P. I have reviewed and confirmed the patients medical history, the findings on physical examination, and the patients diagnosis and treatment plan with Harish FLEMING and agree with the information documented. Mr. Garcia is an 78 year old woman with history of HFpEF, CKD III, Hypothyroidism, hx of PE, on Coumadin, RLS, NIKKI on Bipap, chronic venous insufficiency, recurrent c.diff admitted for worsening SOB with abd pressure and N/V. Patient has been managed for multiple concerns this admission, notably: acute HFpEF exacerbation, now compensated; acute PE with subtherapeutic INR, now on DOAC; UTI, nearly complete with course. Patient has history notable for C Diff infection, but recently stool was negative for toxin. During this admission, it appears patient was placed on ppx vanco po given antibiotics; however, patient is experiencing ongoi ng diarrhea which is not improving and causing notable distress. Plan to repeat stool testing and consult GI for further evaluation of diarrhea. Subjective Seen and examined in 306. Continues to have diarrhea with 4 episodes overnight. Feeling poorly, fatigue, abdominal bloating. Denies any other acute symptoms overnight. No fever, chills, chest pain or shortness of breath, nausea or vomiting. No dysuria. Review of Systems Review of Systems: At least ten systems reviewed and negative except as noted in the HPI. Physical Exam Physical Exam: Gen: WD/WN, NAD, sitting in bedside chair, A&Ox3, obese HEENT: Normocephalic, atraumatic, conjunctivae moist, sclerae anicteric, mucous membranes moist Lung: Clear to Auscultation bilaterally, no wheezes/rales/rhonchi Heart: Regular rate, regular rhythm, no murmurs, rubs, or gallops Abdomen: Soft, mildly TTP, ND +hyperactive BS Extremities: no edema Skin: Warm, no rash Results & Data Results & Data Vital Signs (Past 12 Hours) Vital Signs Temp Pulse Resp BP Pulse Ox O2 Del Method 07/15/23 14:41 36.5 C 66 15 103/64 95 Room Air 07/15/23 08:13 36.8 C 68 14 106/70 94 Room Air Laboratory Results [facility] 07/15/23 08:16 Sodium 138 Potassium 4.0 Chloride 99 Carbon Dioxide 31 BUN 15 Creatinine 0.84 Glucose 115 H Calcium 9.6 Diagnostic Findings Chest X-Ray 07/09/23 10:38 XR chest 1V portable CLINICAL HISTORY: Dyspnea COMPARISON STUDY: Chest radiograph September 21, 2022. FINDINGS: Bilateral shoulder arthroplasties are incidentally noted. Lung volumes are diminished. This is unchanged. There is no pneumothorax or pleural effusion. Interstitial thickening has slightly decreased since prior exam. Cardiomegaly is unchanged. Mediastinal contours are stable. IMPRESSION: Interstitial thickening, slightly decreased when compared to prior exam. This favors pulmonary vascular congestion. ACT 112: Negative or not required by law. Electronically signed by: Jim Snyder M.D. 07/09/2023 11:27 AM Chest CTA 07/09/23 13:48 CT ANGIOGRAPHY OF THE CHEST, PULMONARY EMBOLUS PROTOCOL CLINICAL HISTORY: Increasing shortness of breath. Evaluate for pulmonary embolus. COMPARISON STUDY: Chest CT February 04, 2016 and chest radiograph performed earlier today. TECHNIQUE: Following IV administration of 118 mL of Optiray, helical axial images of the chest were obtained utilizing the pulmonary embolus protocol. Maximal intensity projections and sagittal and coronal reformats were viewed on an independent 3D workstation. IV contrast was administered without complication. Automated exposure control was utilized for the study. A dose lowering technique was utilized adhering to the principles of ALARA. CT DOSE: 891.60 mGy.cm FINDINGS: There is a small subsegmental pulmonary embolus within the apicoposterior segment of the left upper lobe on image 156 of 223. No additional pulmonary emboli are identified. There is mild dilatation of the central pulmonary arteries. Moderate cardiomegaly is noted. There is no pericardial effusion. Small hiatal hernia. No thoracic lymphadenopathy is present. No consolidation is present. A 2 cm subpleural opacity within the right lower lobe on image 114 of 223 is present. There is no pneumothorax or pleural effusion. No acute fractures within the visualized bony thorax. IMPRESSION: 1. Subsegmental pulmonary embolus within the left upper lobe. 2. Mild dilatation of the central pulmonary arteries which raises the possibility of pulmonary arterial hypertension. Moderate cardiomegaly. 3. 2 cm subpleural right lower lobe opacity. Atelectasis or scarring is favored. However, a follow-up chest CT in 3 months is recommended to exclude the possibility of a pulmonary nodule. ACT 112: Positive. There are findings on this exam that require communication between the performing entity and the patient following Patient Test Result Information Act ([place] Act 112) guidelines. Electronically signed by: Jim Snyder M.D. 07/09/2023 4:58 PM Venous Doppler Study 07/12/23 10:57 US venous doppler LE BI CLINICAL HISTORY: r/o dvt TECHNIQUE: Bilateral lower extremity real-time compression venous ultrasound with Color Doppler imaging. Utilizing real-time ultrasonic imaging multiple real time high-resolution ultrasonic images with compression and noncompression maneuvers of the deep venous system in addition to color doppler imaging were performed from the common femoral vein through the proximal calf veins. COMPARISON: None available at the time of this dictation. FINDINGS/IMPRESSION: Currently there is normal compressibility of the deep venous system from the common femoral vein through the proximal calf veins. No superficial venous thrombosis is identified. ACT 112: Negative or not required by law. Electronically signed by: Andres Lim M.D. 07/12/2023 3:05 PM (1) Heart failure, chronic, with acute decompensation Heart failure type: diastolic Qualified Code(s): I50.33 - Acute on chronic diastolic (congestive) heart failure
[2023-07-15] MEDS: CLOTRIMAZOLE VAGINAL CR 7 APPLN/45 GM TUBE PV SCH (20:46)
[2023-07-15] MEDS: AMITRIPTYLINE HCL 25 MG TAB PO SCH (20:52)
[2023-07-15] MEDS: PRAMIPEXOLE DIHYDROCHLO 0.5 MG TAB PO SCH (20:53)
[2023-07-16] MEDS: LEVOTHYROXINE SODIUM 125 MCG TABLET PO SCH (06:42)
[2023-07-16] MEDS: VANCOMYCIN HCL 125 MG/2.5ML SOLN PO SCH (07:48)
[2023-07-16] MEDS: FERROUS SULFATE 325 MG TAB PO SCH (07:49)
[2023-07-16] MEDS: BUMETANIDE 1 MG TAB PO SCH ×2 (07:49→16:19)
[2023-07-16] MEDS: CYANOCOBALAMIN (B-12) 500 MCG TABLET PO SCH (07:49)
[2023-07-16] MEDS: SACCHAROMYCES BOULARDII 250 MG CAP PO SCH ×2 (07:49→21:06)
[2023-07-16] MEDS: CHERRY SYRUP 5 ML UDP PO SCH (07:49)
[2023-07-16] MEDS: AMOXICILLIN/CLAVULANATE 500 MG TAB PO SCH (07:49)
[2023-07-16] MEDS: carvediloL 12.5 MG TAB PO SCH ×2 (07:50→21:07)
[2023-07-16] MEDS: APIXABAN 5 MG TABLET PO SCH ×2 (07:50→21:06)
[2023-07-16] MEDS: GABAPENTIN 100 MG CAP PO SCH ×3 (07:50→21:08)
[2023-07-16] MEDS: POTASSIUM CHLORIDE CRTAB 20 MEQ TABCR PO SCH ×2 (07:52→21:14)
[2023-07-16] MEDS: PANTOprazole 40 MG TAB PO SCH (07:53)
[2023-07-16] MEDS: LOPERAMIDE HCL 2 MG CAP PO PRN (09:09)
[2023-07-16] MEDS: COLESTIPOL HCL 1 GM TAB PO SCH ×2 (09:13→21:07)
[2023-07-16] MEDS: ACETAMINOPHEN 325 MG TAB PO PRN (09:13)
[2023-07-16] MEDS: PRAMIPEXOLE DIHYDROCHLO 0.25 MG TAB PO SCH (13:30)
--- NOTE | 2023-07-16 13:38 | Gastrointestinal Consultation ---
Date of Consultation July 16, 2023 Assessment & Plan (1) Diarrhea: Plan diarrhea: acute in the setting of recent abx use, negative cdiff gene despite hx cdiff. suspect post infectious IBS-D vs. SIBO. recs: --start rifaximin 550 mg TID for 2 weeks --take daily probiotic while on rifaximin --ok to use immodium prn and colestipol Thank you for allowing me to participate in the care of this patient. History of Present Illness Attending Physician: Le Gonzalez MD History of Present Illness 78 yo female with hx PE on AC with warfarin, CHF, CKD3, HTN, JOSE, NIKKI on BIPAP here with worsening dyspnea. GI consulted for recurrent diarrhea, she has a hx cdiff treated multiple times with PO vanco and improved after last course in early june, was having solid stools at home, then after she came to the hospital this admission and was tx'd for UTI diarrhea recurred. cdiff testing this admission is gene negative. no leukocytosis noted. afebrile. She has 4 liquid bowel movements a day, not necessarily related to food intake and not waking up from sleep. this despite being on colestipol and was just started on immodium yesterday which she notes seemed to help some, but has had 3 liquid bowel movements today already. Notes bloating as well. labs reviewed. Allergies Allergy/AdvReac Type Severity Reaction Status Date / Time No Known Allergies Allergy Verified 05/02/23 10:50 Home Medications Medication Instructions Recorded Confirmed Type amitriptyline 25 mg tablet 25 mg PO HS 09/21/22 07/09/23 History carvedilol 12.5 mg tablet 12.5 mg PO BID 09/21/22 07/09/23 History colestipol 1 gram tablet 2 g PO AMHS 09/21/22 07/09/23 History cyanocobalamin (vitamin B-12) 1,000 mcg PO DAILY 09/21/22 07/09/23 History 1,000 mcg tablet (Vitamin B-12) docusate sodium 100 mg capsule 100 mg PO BID PRN Constipation 09/21/22 07/09/23 History ferrous sulfate 325 mg (65 mg 325 mg PO DAILY 09/21/22 07/09/23 History iron) tablet (iron) gabapentin 100 mg capsule 200 mg PO TID 09/21/22 07/09/23 History lorazepam 0.5 mg tablet 0.5 mg PO TID PRN Anxiety 09/21/22 07/09/23 History oxycodone 5 mg tablet 5 mg PO Q4 PRN Severe Pain (Scale 09/21/22 07/09/23 History Score 7-10) pantoprazole 40 mg tablet,delayed 40 mg PO BID 09/21/22 07/09/23 History release pramipexole 0.25 mg tablet 0.25 mg PO .QAFTERNOON 09/21/22 07/09/23 History pramipexole 0.25 mg tablet 0.5 mg PO HS 09/21/22 07/09/23 History warfarin 5 mg tablet 2.5 mg PO MOWEFR@1600 09/21/22 07/09/23 History warfarin 5 mg tablet 5 mg PO DIRECTED 09/21/22 07/09/23 History ergocalciferol (vitamin D2) 1,250 1,250 mcg PO .tuesday10/18/22 07/09/23 History mcg (50,000 unit) capsule potassium chloride 10 mEq 10 meq PO BID #180 tabs 04/05/23 07/09/23 Rx tablet,extended release clonazepam 1 mg tablet 1 mg PO HS PRN RLS 05/02/23 07/09/23 History clotrimazole 1 % vaginal cream 1 applic vaginal HS 05/02/23 07/09/23 History diphenoxylate-atropine 2.5 1 tab PO Q6H PRN Diarrhea 05/02/23 07/09/23 History mg-0.025 mg tablet levothyroxine 125 mcg tablet 125 mcg PO QAM 05/02/23 07/09/23 History Saccharomyces boulardii 250 mg 250 mg PO BID #20 caps 05/09/23 07/09/23 Rx capsule bumetanide 1 mg tablet 2 mg PO BID #60 tabs 05/09/23 07/09/23 Rx apixaban 5 mg (74 tabs) tablets in 5 mg PO BID #74 ea 07/11/23 Rx a dose pack (Eliquis) Patient History Medical History Acute kidney injury superimposed on CKD Anemia resolved per pt, blood transfusions "many yrs ago" unknown cause per pt; mild asymptomatic per nephrology 08/2021 note Anemia of chronic disease Cardiorenal syndrome with renal failure Chronic anticoagulation PE and long time warfarin CKD (chronic kidney disease), stage III Contusion Depression controlled, stable per pt JOSE (generalized anxiety disorder) controlled, stable per pt Heart failure HTN (hypertension) controlled, stable per pt Hyperkalemia Hypothyroidism IBS (irritable bowel syndrome) NIKKI (obstructive sleep apnea) Intolerant to CPAP-no current treatment NIKKI (obstructive sleep apnea) Peripheral neuropathy feet, uses rolling walker consistently Pulmonary embolism on warfarin, follows with anticoagulation clinic Venous insufficiency Vitamin D deficiency Surgical History History of bilateral knee replacement History of cataract extraction right and left History of hysterectomy History of open reduction and internal fixation (ORIF) procedure right foot History of spinal fusion Hx of total shoulder replacement right and left Left reverse TSA 02/01/2018: LMA#4 + PNB. No issues per anesthesia progress note. S/P cardiac cath "2002 - normal coronaries" S/P cholecystectomy S/P left knee arthroscopy Family History Father Pulmonary embolism, Onset Age: 69 Stroke Mother , 93 Arthritis Hypertension Sister Breast cancer Social History Smoking Status: Never smoker Second Hand Exposure: No; Do You Dip or Chew Tobacco: No; Hx Alcohol Use: No Hx Substance Use: No Preferred Language: Lao Communication Ability: Effective Visual Impairment: Limited Hearing Ability: Hard of Hearing Certified Surgical First Assistant Required: No Beliefs That Will Affect Care: None marital status: / Current Living Situation: Alone Current Living Situation Comment: Home alone current occupational status: retired How many Children do You have: 2 How many Children do You have Comment: neither son is local, pt stated she has two sister in laws that assist with care as needed. She also has a niece that assists her frequently. Other Information That Helps Us Care for You: No Feels Safe at Home: Yes Safety Concerns: Feels Safe At This Time during the past year weight has: remained stable Assistive Devices: Glasses, Oxygen - at Night, Oxygen - Continuous and Walker Assistive Devices Comment: Oxygen PRN at home Review of Systems Constitutional: no fever, no chills and no weight loss Eyes: as per Subjective / HPI Ear, Nose, Mouth, Throat: as per Subjective / HPI Respiratory: no dyspnea and no dyspnea on exertion Cardiovascular: no chest pain and no palpitations Gastrointestinal: as per Subjective / HPI Musculoskeletal: no joint pain and no swelling Integumentary: no rash and no lesions Neurologic: no numbness and no paresthesia Psychiatric: no depression and no anxiety Endocrine: no fatigue Hematologic / Lymphatic: no easy bleeding and no easy bruising Physical Exam Constitutional: WD/WN, vitals as above Eyes: EOM intact bilaterally Neck: normal visual inspection Respiratory: normal respiratory effort, lungs clear to auscultation Cardiovascular: Rate/Rhythm: regular rate and regular rhythm Heart Sounds: no murmur Extremities: + edema Gastrointestinal (Abdomen): Inspection/Auscultation: abdomen normal to inspection; abdomen not distended Percussion/Palpation: abdomen soft; abdomen nontender and no hepatosplenomegaly Musculoskeletal: Head/Neck/Chest: normocephalic and head atraumatic Extremities: no cyanosis Skin: no rashes, warm and dry Neurologic: moves all extremities Psychiatric: Orientation: alert and cooperative Affect: euthymic affect Results & Data Vital Signs (Past 12 Hours) Vital Signs Temp Pulse Resp BP Pulse Ox O2 Del Method 07/16/23 07:42 Room Air 07/16/23 07:38 36.7 C 73 16 107/70 94 Room Air PG Care Time/CCT Total # of Minutes Spent Total Time Spent with Patient: Total time spent is greater than 50% in coordination of care (as documented) at patient's floor/unit and/or counseling patient: Coding Level of Care Code 45301 INT INP/OBS CARE 3/75MIN Diagnoses Diarrhea R19.7
[2023-07-16] MEDS ORDERED: rifAXIMin 550 MG TABLET PO SCH ×2 (14:00→21:00)
--- NOTE | 2023-07-16 14:42 | Hospitalist Progress Note ---
Date of Service July 16, 2023 Assessment & Plan (1) Heart failure, chronic, with acute decompensation: (2) Acute pulmonary embolism: (3) Elevated troponin: (4) UTI (urinary tract infection): (5) Hypokalemia: (6) Hypomagnesemia: (7) CKD (chronic kidney disease), stage III: (8) HTN (hypertension): (9) Iron deficiency anemia: (10) Lymphedema: (11) Chronic venous insufficiency: (12) JOSE (generalized anxiety disorder): (13) Restless leg syndrome: (14) NIKKI (obstructive sleep apnea): (15) Morbid obesity: Plan Ms. Asuncion Garcia is an 78yoF with past history of PE on chronic anticoagulation w/ warfarin, HFpEF, chronic lymphedema, CKD3, HTN, JOSE, NIKKI on BiPAP, anxiety, anemia of chronic disease, chronic venous insufficiency, hypothyroidism who presented with SOB and found to have acute PE and signs of decompensated heart failure. Patient was transitioned to apixaban and underwent IV diuersis. Additionally, there was concern for UTI prompting abx. During this time, patient experienced diarrhea that was persistent. C diff testing negative. Multiple regimens trialed but no success. Considered course with rifaximin, however, out of pocket cost is astronomical. With GI on consult, plan to trial dicyclomine 10mg TID + lomotil, in addition to home colestipol. If no success, will trial antibiotic regimen. #Acute on Chronic heart failure with preserved ejection fraction Hs troponin normal, no evidence of acute ischemia on EKG Echo performed this admission, possible pulmonary HTN to be followed as outpatient. Appears euvolemic -Continue home bumex 2mg daily -Continue Carvedilol 12.5mg BID #Chronic diarrhea #Recent C diff infection C diff in April, diarrhea recurred at the beginning of June after PO antibiotic c diff gene positive, toxin negative Completed course of Po vanco prophylactically with no improvement of symptoms Diarrhea persists despite once daily PO vanco, probiotics, Colestipol BID, Imodium PRN GI on consult, suspicious for SIBO v IBS-D -Attempted Rifaximin 550mg TID; however, prior auth cannot be completed without confirmatory test, out of pocket costs exuberant -Trialing 10mg dicyclomine TID -Some relief with lomtil, will resume -Continue colestipol -Discontinue PO vanc -If no improvement, can consider alternative antibiotic course v op follow up with GI -Discontinue protonix 40mg BID, prescribed on and off since 2002, no clear indication at this time. #Acute PE possibly related to subtherapeutic INR #Prior DVT/PE on warfarin Underwent recent procedure requiring time off of warfarin Transitioned to Apixaban #UTI (urinary tract infection) 2/2 pansensitive E coli Rocephin stopped, started Augmentin, completed course #Hypokalemia Replace and monitor Increased to 20mef BID with stable potassium levels Stable #CKD (chronic kidney disease), stage III Baseline 0.8-1 Stable #HTN (hypertension) Chronic, controlled Continue carvedilol and bumex per home regimen #Iron deficiency anemia Baseline 11-12, chronic, stable Continue iron supplement #Lymphedema #Chronic venous insufficiency #Chronic BLE edema Cont loop diuretic therapy #JOSE (generalized anxiety disorder) Continue home medications #Restless leg syndrome Chronic, stable. Continue pramipexole #NIKKI (obstructive sleep apnea) BiPAP at bedtime. Patient states often is unable to tolerate Diet: Low sodium DVT Prophylaxis: Heparin Full Code Dispo-to home contingent on bowel regimen Admission and Anticipated Discharge Date Admission Date: July 09, 2023 Subjective Patient endorses continued diarrhea, but some improvement with immodium; however, reports marked imrpovement with lomtil Patient feels miserable given the urgency of her stool at times and worries about keeping appointments Other than the diarrhea, patient denies any new acute concerns Review of Systems Review of Systems: All systems reviewed & are unremarkable except as noted in Subjective Physical Exam Constitutional: WD/WN, vitals as above Eyes: PERRL, conjunctivae normal, anicteric sclerae ENMT: external ear and nose normal, oropharynx normal Neck: trachea midline, no thyromegaly Respiratory: normal respiratory effort, lungs clear to auscultation Cardiovascular: RRR, no murmur, no edema Gastrointestinal (Abdomen): normal bowel sounds, soft, nontender, no hepatosplenomegaly Musculoskeletal: no cyanosis or clubbing, extremities motor strength 5/5 Skin: no rashes, warm and dry Neurologic: PERRL, EOMI, accommodation nl, no face palsy, no dysarthria Results & Data Results & Data Vital Signs (Past 12 Hours) Vital Signs Temp Pulse Resp BP Pulse Ox O2 Del Method 07/16/23 07:42 Room Air 07/16/23 07:38 36.7 C 73 16 107/70 94 Room Air (1) Heart failure, chronic, with acute decompensation Heart failure type: diastolic Qualified Code(s): I50.33 - Acute on chronic diastolic (congestive) heart failure
[2023-07-16] MEDS: PRAMIPEXOLE DIHYDROCHLO 0.5 MG TAB PO SCH (21:05)
[2023-07-16] MEDS: AMITRIPTYLINE HCL 25 MG TAB PO SCH (21:05)
[2023-07-16] MEDS: DICYCLOMINE HCL 10 MG CAP PO SCH (21:14)
[2023-07-17] MEDS: DIPHENOXYLATE/ATROPINE 2.5/0.025MG TAB PO PRN ×2 (00:58→08:22)
[2023-07-17] MEDS: LEVOTHYROXINE SODIUM 125 MCG TABLET PO SCH (05:31)
[2023-07-17] MEDS: VANCOMYCIN HCL 125 MG/2.5ML SOLN PO SCH (08:22)
[2023-07-17] MEDS: BUMETANIDE 1 MG TAB PO SCH ×2 (08:22→17:16)
[2023-07-17] MEDS: POTASSIUM CHLORIDE CRTAB 20 MEQ TABCR PO SCH ×2 (08:22→20:38)
[2023-07-17] MEDS: APIXABAN 5 MG TABLET PO SCH ×2 (08:23→20:30)
[2023-07-17] MEDS: SACCHAROMYCES BOULARDII 250 MG CAP PO SCH ×2 (08:23→20:30)
[2023-07-17] MEDS: GABAPENTIN 100 MG CAP PO SCH ×3 (08:23→20:30)
[2023-07-17] MEDS: carvediloL 12.5 MG TAB PO SCH ×2 (08:23→20:35)
[2023-07-17] MEDS: CYANOCOBALAMIN (B-12) 500 MCG TABLET PO SCH (08:24)
[2023-07-17] MEDS: CHERRY SYRUP 5 ML UDP PO SCH (08:24)
[2023-07-17] MEDS: FERROUS SULFATE 325 MG TAB PO SCH (08:24)
[2023-07-17] MEDS: DICYCLOMINE HCL 10 MG CAP PO SCH ×3 (08:24→20:30)
[2023-07-17] MEDS: COLESTIPOL HCL 1 GM TAB PO SCH ×2 (09:48→21:41)
[2023-07-17] MEDS: PRAMIPEXOLE DIHYDROCHLO 0.25 MG TAB PO SCH (13:48)
--- NOTE | 2023-07-17 18:11 | Hospitalist Progress Note ---
Date of Service July 17, 2023 Assessment & Plan (1) Heart failure, chronic, with acute decompensation: (2) Acute pulmonary embolism: (3) Elevated troponin: (4) UTI (urinary tract infection): (5) Hypokalemia: (6) Hypomagnesemia: (7) CKD (chronic kidney disease), stage III: (8) HTN (hypertension): (9) Iron deficiency anemia: (10) Lymphedema: (11) Chronic venous insufficiency: (12) JOSE (generalized anxiety disorder): (13) Restless leg syndrome: (14) NIKKI (obstructive sleep apnea): (15) Morbid obesity: Plan Ms. Asuncion Garcia is an 78yoF with past history of PE on chronic anticoagulation w/ warfarin, HFpEF, chronic lymphedema, CKD3, HTN, JOSE, NIKKI on BiPAP, anxiety, anemia of chronic disease, chronic venous insufficiency, hypothyroidism who presented with SOB and found to have acute PE and signs of decompensated heart failure. Patient was transitioned to apixaban and underwent IV diuersis. Additionally, there was concern for UTI prompting abx. During this time, patient experienced diarrhea that was persistent. C diff testing negative. Multiple regimens trialed but no success. Considered course with rifaximin, however, out of pocket cost is astronomical. With GI on consult, plan to trial dicyclomine 10mg TID + lomotil, in addition to home colestipol. If no success, will trial antibiotic regimen; however, patient hesitant for antibiotics. #Acute on Chronic heart failure with preserved ejection fraction Hs troponin normal, no evidence of acute ischemia on EKG Echo performed this admission, possible pulmonary HTN to be followed as outpatient. Appears euvolemic -Continue home bumex 2mg daily -Continue Carvedilol 12.5mg BID #Chronic diarrhea #Recent C diff infection C diff in April, diarrhea recurred at the beginning of June after PO antibiotic c diff gene positive, toxin negative Completed course of Po vanco prophylactically with no improvement of symptoms Diarrhea persists despite once daily PO vanco, probiotics, Colestipol BID, Imodium PRN GI on consult, suspicious for SIBO v IBS-D -Attempted Rifaximin 550mg TID; however, prior auth cannot be completed without confirmatory test, out of pocket costs exuberant -Continue 10mg dicyclomine TID -Some relief with lomtil, will resume -Continue colestipol -If no improvement, can consider alternative antibiotic course v op follow up with GI -Discontinue protonix 40mg BID, prescribed on and off since 2002, no clear indication at this time. #Acute PE possibly related to subtherapeutic INR #Prior DVT/PE on warfarin Underwent recent procedure requiring time off of warfarin Continue Apixaban #UTI (urinary tract infection) 2/2 pansensitive E coli Rocephin stopped, started Augmentin, completed course #Hypokalemia Replace and monitor COntinue 20meq BID with stable potassium levels Stable #CKD (chronic kidney disease), stage III Baseline 0.8-1 Stable #HTN (hypertension) Chronic, controlled Continue carvedilol and bumex per home regimen #Iron deficiency anemia Baseline 11-12, chronic, stable Continue iron supplement #Lymphedema #Chronic venous insufficiency #Chronic BLE edema Cont loop diuretic therapy #JOSE (generalized anxiety disorder) Continue home medications #Restless leg syndrome Chronic, stable. Continue pramipexole #NIKKI (obstructive sleep apnea) BiPAP at bedtime. Patient states often is unable to tolerate Diet: Low sodium DVT Prophylaxis: apixaban Full Code Dispo-to home contingent on bowel regimen Admission and Anticipated Discharge Date Admission Date: July 09, 2023 Subjective Patient endorses ongoing GI symptoms, but she wishes to see how a few more doses work to control her symptoms. She is concerned about antibiotics for SIBO, and hopes the current regimen calms her symptoms Other than the diarrhea, patient denies any new acute concerns Review of Systems Review of Systems: All systems reviewed & are unremarkable except as noted in Subjective Physical Exam Constitutional: WD/WN, vitals as above Eyes: PERRL, conjunctivae normal, anicteric sclerae ENMT: external ear and nose normal, oropharynx normal Neck: trachea midline, no thyromegaly Respiratory: normal respiratory effort, lungs clear to auscultation Cardiovascular: RRR, no murmur, no edema Gastrointestinal (Abdomen): normal bowel sounds, soft, nontender, no hepatosplenomegaly Musculoskeletal: no cyanosis or clubbing, extremities motor strength 5/5 Skin: no rashes, warm and dry Neurologic: PERRL, EOMI, accommodation nl, no face palsy, no dysarthria Results & Data Results & Data Vital Signs (Past 12 Hours) Vital Signs Temp Pulse Resp BP Pulse Ox O2 Del Method 07/17/23 14:58 36.4 C L 68 16 97/62 L 97 Room Air 07/17/23 07:35 Room Air 07/17/23 07:11 36.7 C 67 18 113/72 97 Room Air Laboratory Results No new labs for review Diagnostic Findings No new imaging for review Medications Administered Home Medications Medication Instructions Recorded Confirmed Last Taken amitriptyline 25 mg tablet 25 mg PO HS 09/21/22 07/09/23 07/08/23 carvedilol 12.5 mg tablet 12.5 mg PO BID 09/21/22 07/09/23 07/08/23 colestipol 1 gram tablet 2 g PO AMHS 09/21/22 07/09/23 07/08/23 cyanocobalamin (vitamin B-12) 1,000 mcg PO DAILY 09/21/22 07/09/23 05/02/23 1,000 mcg tablet (Vitamin B-12) docusate sodium 100 mg capsule 100 mg PO BID PRN Constipation 09/21/22 07/09/23 Unknown ferrous sulfate 325 mg (65 mg 325 mg PO DAILY 09/21/22 07/09/23 07/08/23 iron) tablet (iron) gabapentin 100 mg capsule 200 mg PO TID 09/21/22 07/09/23 07/08/23 lorazepam 0.5 mg tablet 0.5 mg PO TID PRN Anxiety 09/21/22 07/09/23 Unknown oxycodone 5 mg tablet 5 mg PO Q4 PRN Severe Pain (Scale 09/21/22 07/09/23 Unknown Score 7-10) pantoprazole 40 mg tablet,delayed 40 mg PO BID 09/21/22 07/09/23 07/08/23 release pramipexole 0.25 mg tablet 0.25 mg PO .QAFTERNOON 09/21/22 07/09/23 07/08/23 pramipexole 0.25 mg tablet 0.5 mg PO HS 09/21/22 07/09/23 07/08/23 warfarin 5 mg tablet 2.5 mg PO MOWEFR@1600 09/21/22 07/09/23 07/08/23 warfarin 5 mg tablet 5 mg PO DIRECTED 09/21/22 07/09/23 07/07/23 ergocalciferol (vitamin D2) 1,250 1,250 mcg PO .tuesday10/18/22 07/09/23 04/30/23 mcg (50,000 unit) capsule potassium chloride 10 mEq 10 meq PO BID #180 tabs 04/05/23 07/09/23 07/08/23 tablet,extended release clonazepam 1 mg tablet 1 mg PO HS PRN RLS 05/02/23 07/09/23 Unknown clotrimazole 1 % vaginal cream 1 applic vaginal HS 05/02/23 07/09/23 05/01/23 levothyroxine 125 mcg tablet 125 mcg PO QAM 05/02/23 07/09/23 07/08/23 Saccharomyces boulardii 250 mg 250 mg PO BID #20 caps 05/09/23 07/09/23 07/08/23 capsule bumetanide 1 mg tablet 2 mg PO BID #60 tabs 05/09/23 07/09/23 07/08/23 apixaban 5 mg (74 tabs) tablets in 5 mg PO BID #74 ea 07/11/23 Unknown a dose pack (Eliquis) diphenoxylate-atropine 2.5 1 tab PO Q8 PRN Diarrhea 30 days 07/16/23 Unknown mg-0.025 mg tablet #30 tabs potassium chloride 20 mEq 20 meq PO BID 30 days #60 tabs 07/16/23 Unknown tablet,extended release(part/cryst) rifaximin 550 mg tablet (Xifaxan) 550 mg PO TID 13 days #39 tabs 07/16/23 Unknown Active Medications Generic Name Dose Route Start Last Admin Trade Name Freq PRN Reason Stop Dose Admin Acetaminophen 650 mg 07/09/23 14:49 07/16/23 09:13 Acetaminophen 325 Mg Tab PO 08/08/23 14:48 650 mg Q4H PRN Administration Pain or Fever Amitriptyline HCl 25 mg 07/09/23 21:00 07/16/23 21:05 Amitriptyline Hcl 25 Mg Tab PO 08/08/23 20:59 25 mg HS DOMINIQUE Administration Apixaban 10 mg 07/11/23 21:00 07/17/23 08:23 Apixaban 5 Mg Tablet PO 07/18/23 09:01 10 mg BID DOMINIQUE Administration Bumetanide 2 mg 07/12/23 09:00 07/17/23 17:16 Bumetanide 1 Mg Tab PO 08/11/23 08:59 2 mg [id number] DOMINIQUE Administration Carvedilol 12.5 mg 07/09/23 21:00 07/17/23 08:23 Carvedilol 12.5 Mg Tab PO 08/08/23 20:59 12.5 mg BID DOMINIQUE Administration Urena Syrup 5 ml 07/15/23 09:00 07/17/23 08:24 Urena Syrup 5 Ml Udp PO 07/19/23 14:59 5 ml DAILY DOMINIQUE Administration Colestipol HCl 2 gm 07/09/23 22:00 07/17/23 09:48 Colestipol Hcl 1 Gm Tab PO 08/08/23 21:59 2 gm AMHS@1000,2200 DOMINIQUE Administration Cyanocobalamin 1,000 mcg 07/10/23 09:00 07/17/23 08:24 Cyanocobalamin (B-12) 500 Mcg Tablet PO 08/09/23 08:59 1,000 mcg DAILY DOMINIQUE Administration Dicyclomine HCl 10 mg 07/16/23 21:00 07/17/23 13:48 Dicyclomine Hcl 10 Mg Cap PO 08/15/23 20:59 10 mg TID DOMINIQUE Administration Diphenoxylate HCl/Atropine 1 tab 07/16/23 15:01 07/17/23 08:22 Diphenoxylate/Atropine 2.5/0.025mg Tab PO 08/15/23 15:00 1 tab Q6H PRN Administration diarrhea Ferrous Sulfate 325 mg 07/10/23 09:00 07/17/23 08:24 Ferrous Sulfate 325 Mg Tab PO 08/09/23 08:59 325 mg DAILY DOMINIQUE Administration Gabapentin 200 mg 07/09/23 15:30 07/17/23 13:48 Gabapentin 100 Mg Cap PO 08/08/23 15:29 200 mg TID DOMINIQUE Administration Levothyroxine Sodium 125 mcg 07/10/23 06:30 07/17/23 05:31 Levothyroxine Sodium 125 Mcg Tablet PO 08/09/23 06:29 125 mcg DAILYBB DOMINIQUE Administration Lorazepam 0.5 mg 07/09/23 14:49 07/16/23 09:13 Lorazepam 0.5 Mg Tab PO 08/08/23 14:48 0.5 mg TID PRN Administration Anxiety Potassium Chloride 20 meq 07/12/23 09:00 07/17/23 08:22 Potassium Chloride Crtab 20 Meq Tabcr PO 08/11/23 08:59 20 meq BID DOMINIQUE Administration Pramipexole Dihydrochloride 0.5 mg 07/09/23 21:00 07/16/23 21:05 Pramipexole Dihydrochlo 0.5 Mg Tab PO 08/08/23 20:59 0.5 mg HS DOMINIQUE Administration Pramipexole Dihydrochloride 0.25 mg 07/09/23 15:30 07/17/23 13:48 Pramipexole Dihydrochlo 0.25 Mg Tab PO 08/08/23 15:29 0.25 mg DAILY@1400 DOMINIQUE Administration Saccharomyces Boulardii 250 mg 07/09/23 21:00 07/17/23 08:23 Saccharomyces Boulardii 250 Mg Cap PO 08/08/23 20:59 250 mg BID DOMINIQUE Administration Vancomycin HCl 125 mg 07/09/23 15:00 07/17/23 08:22 Vancomycin Hcl 125 Mg/2.5ml Soln PO 07/19/23 14:59 125 mg DAILY DOMINIQUE Administration (1) Heart failure, chronic, with acute decompensation Heart failure type: diastolic Qualified Code(s): I50.33 - Acute on chronic diastolic (congestive) heart failure
[2023-07-17] MEDS: AMITRIPTYLINE HCL 25 MG TAB PO SCH (20:30)
[2023-07-17] MEDS: PRAMIPEXOLE DIHYDROCHLO 0.5 MG TAB PO SCH (20:31)
[2023-07-18] MEDS: LEVOTHYROXINE SODIUM 125 MCG TABLET PO SCH (05:34)
[2023-07-18] MEDS: DIPHENOXYLATE/ATROPINE 2.5/0.025MG TAB PO PRN ×2 (08:54→14:35)
[2023-07-18] MEDS: SACCHAROMYCES BOULARDII 250 MG CAP PO SCH (08:54)
[2023-07-18] MEDS: CYANOCOBALAMIN (B-12) 500 MCG TABLET PO SCH (08:55)
[2023-07-18] MEDS: GABAPENTIN 100 MG CAP PO SCH ×2 (08:55→13:10)
[2023-07-18] MEDS: DICYCLOMINE HCL 10 MG CAP PO SCH ×2 (08:55→13:11)
[2023-07-18] MEDS: FERROUS SULFATE 325 MG TAB PO SCH (08:55)
[2023-07-18] MEDS: carvediloL 12.5 MG TAB PO SCH (08:55)
[2023-07-18] MEDS: APIXABAN 5 MG TABLET PO SCH (08:56)
[2023-07-18] MEDS: BUMETANIDE 1 MG TAB PO SCH (08:56)
[2023-07-18] MEDS: POTASSIUM CHLORIDE CRTAB 20 MEQ TABCR PO SCH (09:01)
[2023-07-18] MEDS: VANCOMYCIN HCL 125 MG/2.5ML SOLN PO SCH (09:02)
[2023-07-18] MEDS: CHERRY SYRUP 5 ML UDP PO SCH (09:02)
[2023-07-18] MEDS: COLESTIPOL HCL 1 GM TAB PO SCH (10:45)
[2023-07-18] MEDS: ACETAMINOPHEN 325 MG TAB PO PRN (10:46)
[2023-07-18] MEDS: PRAMIPEXOLE DIHYDROCHLO 0.25 MG TAB PO SCH (13:11)
--- NOTE | 2023-07-18 18:35 | Discharge Summary ---
Discharge Summary Date of Service July 18, 2023 Notes For Next Care Provider [ ] Follow up on Pulm HTN, consider additional OP workup [ ] GI follow up for ongoing diarrhea, starting course for presumptive SIBO Medication Changes From Visit -Discontinued PPI as possible source for diarrhea -Discontinue Warfarin -Started Apixaban -Continue colestipol, immodium, lomotil -Trial Flagyl 250mg TID for 10 days Admission HPI Per Admitting Provider Patient is 78-year-old female with PMH systolic heart failure, chronic bilateral lower extremity edema thought secondary to lymphedema, CKD III, history of PE chronically anticoagulated on Coumadin, hypothyroidism, anxiety, RLS, iron deficiency anemia, NIKKI, obesity presented to ER with complaint of shortness of breath x1 day. History obtained from patient as well as inpatient and outpatient chart review. Recent hospitalization in April 2023 for C. difficile, diverticulitis and was treated with Vanco, Cipro, Flagyl. Patient states couple weeks ago had suprapubic pressure which she often gets with UTIs and had outpatient urinalysis 06/16/2023 that showed bacteria, WBC and was treated with nitrofurantoin x7 days as well as vancomycin. Patient states for the last 3 days with suprapubic pressure again. She reports frequent urination however is on diuretics as well. She reports that last night drank water and coughed and then vomited 3 times after. Denies hematemesis. no further vomiting since. Nausea this morning. Did not take morning meds today. Yesterday and today with SOB and left chest heaviness. Has oxygen to use at home at 2.5L however typically does not use. Has chronic BLE edema and doesn't feel has had any worsening swelling. She has Bipap to use at night but doesn't use regularly as she cannot tolerate it. Has had loose stools since her C. difficile 2 months ago. Denies fever/chills, diaphoresis, HUNTER, dizziness, syncope, orthopnea, palpitations, rhinorrhea, other abdominal pain, paresthesias, weakness, rashes, hematuria, urinary retention. Admission Exam Per Admitting Provider General: no distress, WDWN Head: normocephalic, atraumatic Eyes: conjunctiva non-injected, anicteric ENT: normal inspection external ears, nose, mucous membranes moist Neck: supple, trachea midline Lungs: clear, no respiratory distress, no wheezing/rhonchi/rales CV: RRR, no murmur Abd: normal BS, soft, non-tender Ext: no cyanosis, no erythema, no calf tenderness, +edema BLE Neuro: A&O x 3, no focal deficits noted, normal affect Skin: warm, dry Principal Dx & Hospital Course #1 = Principal Diagnosis (1) Heart failure, chronic, with acute decompensation: (2) Acute pulmonary embolism: (3) Elevated troponin: (4) UTI (urinary tract infection): (5) Hypokalemia: (6) Hypomagnesemia: (7) CKD (chronic kidney disease), stage III: (8) HTN (hypertension): (9) Iron deficiency anemia: (10) Lymphedema: (11) Chronic venous insufficiency: (12) JOSE (generalized anxiety disorder): (13) Restless leg syndrome: (14) NIKKI (obstructive sleep apnea): (15) Morbid obesity: Plan Ms. Asuncion Garcia is an 78yoF with past history of PE on chronic anticoagulation w/ warfarin, HFpEF, chronic lymphedema, CKD3, HTN, JOSE, NIKKI on BiPAP, anxiety, anemia of chronic disease, chronic venous insufficiency, hypothyroidism who presented with SOB and found to have acute PE and signs of decompensated heart failure. Patient was transitioned to apixaban and underwent IV diuersis. Additionally, there was concern for UTI prompting abx, for which she completed a 5 day course. During this time, patient experienced diarrhea that was persistent. C diff testing negative. Multiple regimens trialed but no success. Considered course with rifaximin, however, out of pocket cost is astronomical. With GI on consult, we trialed dicyclomine 10mg TID + lomotil, in addition to home colestipol. There was no notable success. Contact to discuss an additional option with GI was made and flagyl for 10 days was suggested as alternative course for SIBO. Patient was flustered with ongoing symptoms, but noted that she would like to trial this regimen at home as the lomotil will stop her symptoms long enough for her to attend appointments and perhaps allow the flagyl time to work. 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 On day of discharge, patient was able to eat and hold down food, ambulate without difficulty and denied any acute concerns. #Acute on Chronic heart failure with preserved ejection fraction *improved Hs troponin normal, no evidence of acute ischemia on EKG Echo performed this admission, possible pulmonary HTN to be followed as outpatient. Appears euvolemic -Continue home bumex 2mg daily -Continue Carvedilol 12.5mg BID #Chronic diarrhea #Recent C diff infection C diff in April, diarrhea recurred at the beginning of June after PO antibiotic c diff gene positive, toxin negative Completed course of Po vanco prophylactically with no improvement of symptoms Diarrhea persists despite once daily PO vanco, probiotics, Colestipol BID, Imodium PRN GI on consult, suspicious for SIBO v IBS-D -Attempted Rifaximin 550mg TID; however, prior auth cannot be completed without confirmatory test, out of pocket costs exuberant -Some relief with lomtil, -Continue colestipol -Discontinued bentyl -Start Flagyl 250mg TID for 10days -OP GI follow up -Discontinue protonix 40mg BID, prescribed on and off since 2002, no clear indication at this time. #Acute PE possibly related to subtherapeutic INR #Prior DVT/PE on warfarin Discontinued warfarin Continue Apixaban #UTI (urinary tract infection) 2/2 pansensitive E coli completed course #Hypokalemia Replace and monitor Continue 20meq BID with stable potassium levels Stable #CKD (chronic kidney disease), stage III Baseline 0.8-1 Stable #HTN (hypertension) Chronic, controlled Continue carvedilol and bumex per home regimen #Iron deficiency anemia Baseline 11-12, chronic, stable Continue iron supplement #Lymphedema #Chronic venous insufficiency #Chronic BLE edema Cont loop diuretic therapy #JOSE (generalized anxiety disorder) Continue home medications #Restless leg syndrome Chronic, stable. Continue pramipexole #NIKKI (obstructive sleep apnea) BiPAP at bedtime. Patient states often is unable to tolerate Discharge Exam Constitutional WD/WN, vitals as above Eyes PERRL, conjunctivae normal, anicteric sclerae ENMT external ear and nose normal, oropharynx normal Respiratory normal respiratory effort, lungs clear to auscultation Cardiovascular RRR, no murmur, no edema Gastrointestinal (Abdomen) normal bowel sounds, soft, nontender, no hepatosplenomegaly Musculoskeletal no cyanosis or clubbing, extremities motor strength 5/5 Skin no rashes, warm and dry Neurologic PERRL, EOMI, accommodation nl, no face palsy, no dysarthria Psychiatric A+Ox3, euthymic affect Updated Medication List Medication Instructions Recorded Confirmed Type amitriptyline 25 mg tablet 25 mg PO HS 09/21/22 07/09/23 History carvedilol 12.5 mg tablet 12.5 mg PO BID 09/21/22 07/09/23 History colestipol 1 gram tablet 2 g PO AMHS 09/21/22 07/09/23 History cyanocobalamin (vitamin B-12) 1,000 mcg PO DAILY 09/21/22 07/09/23 History 1,000 mcg tablet (Vitamin B-12) ferrous sulfate 325 mg (65 mg 325 mg PO DAILY 09/21/22 07/09/23 History iron) tablet (iron) gabapentin 100 mg capsule 200 mg PO TID 09/21/22 07/09/23 History pantoprazole 40 mg tablet,delayed 40 mg PO BID 09/21/22 07/09/23 History release pramipexole 0.25 mg tablet 0.25 mg PO .QAFTERNOON 09/21/22 07/09/23 History pramipexole 0.25 mg tablet 0.5 mg PO HS 09/21/22 07/09/23 History ergocalciferol (vitamin D2) 1,250 1,250 mcg PO .tuesday10/18/22 07/09/23 History mcg (50,000 unit) capsule clonazepam 1 mg tablet 1 mg PO HS PRN RLS 05/02/23 07/09/23 History clotrimazole 1 % vaginal cream 1 applic vaginal HS 05/02/23 07/09/23 History levothyroxine 125 mcg tablet 125 mcg PO QAM 05/02/23 07/09/23 History Saccharomyces boulardii 250 mg 250 mg PO BID #20 caps 05/09/23 07/09/23 Rx capsule bumetanide 1 mg tablet 2 mg PO BID #60 tabs 05/09/23 07/09/23 Rx diphenoxylate-atropine 2.5 1 tab PO Q8 PRN Diarrhea 30 days 07/16/23 Rx mg-0.025 mg tablet #30 tabs potassium chloride 20 mEq 20 meq PO BID 30 days #60 tabs 07/16/23 Rx tablet,extended release(part/cryst) apixaban 5 mg tablet (Eliquis) 5 mg PO BID #30 tabs 07/18/23 Rx metronidazole 250 mg tablet 250 mg PO TID #30 tabs 07/18/23 Rx Hospital Stay Data Consultations 07/09/23 12:27 ED Decision to Admit Stat 07/15/23 15:39 Consult Gastroenterology Routine Diagnostic Imagining Performed 07/09/23 13:48 CT angio chest PE protocol Stat 07/12/23 10:57 US venous doppler LE BI Routine Pending Results Patient Have Any Pending Studies at Discharge: No Discharge Instructions Given to Patient (Per Discharging Provider) You were admitted for an acute heart failure exacerbation, likely cause by an acute pulmonary embolism (a lung blood clot). This is possibly due to low INR from the hold of your warfarin recently. You course was also complicated by a urinary tract infection and acute diarrhea. You were treated and completed the course of antibiotics for UTI. Your diarrhea was a source of concern, and initially thought recurrence of C. Diff infection; however, your stool was negative for active infection The Talent Acquisition Assistant is suspicious for possible Small Intestine Bacterial Overgrowth, which is why we are trialing 10 days on Flagyl. Here are the following updates to your medications: Diarrhea: -Continue colestipol 2g at bedtime -Continue immodium as needed -Use Lomotil if above do not work or prior to any appointments as discussed -Start Flagyl 250mg three times a day for 10 days for presumptive SIBO -Follow up with GI Pulmonary Embolism -Stop taking warfarin -Start Eliquis (apixaiban) 5 mg two times daily Heart Failure Regimen: -Continue Bumex 2mg twice daily -Continue Coreg 12.5mg twice daily You can resume all other home medications as directed by your primary care provider and specialist Total Time Total Time Spent Total Time Spent (In Minutes): Time spent evaluating patient, direct bedside care, chart review, placing discharge orders, interpretation of diagnostic studies, discussion with consultants, patient, and family members, as well as other required patient management activities is 55 minutes.
== END 2023-07-18 14:41 | disposition home or self-care (01) | DRG 291 ==
LOC: ED 09:45 → SUATTDRO 12:55 → 2N 12:55 → 3E 07-14 00:43

== ENCOUNTER 2024-09-02 07:41 | Inpatient (IN) ==
--- NOTE | 2024-09-02 07:56 | Emergency Department Note ---
Impression & Plan Urinary tract infection, Chest discomfort ED Provider Note NAME: YEE MERIDA AGE: 79 SEX: F : 1945 ARRIVES VIA: Ambulance INFORMANT: Patient ED PROVIDER(S): CALLIE Truong, Bob Garcia MD CHIEF COMPLAINT: Hematuria HISTORY OF PRESENT ILLNESS: This 79-year-old patient presents to the emergency department via private vehicle for evaluation of hematuria and chest pressure. The patient states the hematuria began yesterday, she denies dysuria, she denies history of previous hematuria. She reports history of UTIs, no history of nephrolithiasis. She reports no confusion. She states she is to wear a CPAP at home, and has oxygen for exertion as needed. She was placed on oxygen after arrival for a sat upon resting in the mid 80s. She reports no lower extremity swelling, however has a history of left-sided heart failure and takes oral Bumex. She reports slight chest pressure this morning with exertion when she attempted to ambulate to the bathroom. She states this is since resolved. She states she did take her temperature upon waking and reports a reading of 101F. She states after drinking water she noted the temperature had decreased to 98F. REVIEW OF SYSTEMS: A review of systems was performed with positives and pertinent negatives listed in the history of present illness. All other systems were reviewed and are negative. ALLERGIES: See below MEDICATIONS: See below PMH: See below PHYSICAL EXAM: VITALS: Vitals are noted on the nurse's note and reviewed by myself. Vital signs stable. GENERAL: 79-year-old female, in no acute distress, nondiaphoretic, well- developed well-nourished. SKIN: The skin was without rashes, erythema, edema, or bruising. HEAD: Normocephalic atraumatic. MOUTH: Mucous membranes moist. Pharynx without erythema or exudate. Uvula midline. Airway patent. Tongue does not deviate. NECK: Supple without nuchal rigidity. No lymphadenopathy. No thyromegaly. Cervical spine is nontender. No JVD. HEART: Regular rate and rhythm without murmurs gallops or rubs. LUNGS: Coarse lung sounds throughout, no inspiratory or expiratory wheezing. ABDOMEN: Positive bowel sounds x 4. Soft, nontender, without masses or organomegaly. Rivera sign negative. No guarding or rebound tenderness. MUSCULOSKELETAL: No muscle atrophy, erythema, or edema noted. Normal gait. Strength 5/5 throughout. NEURO: Patient was alert and oriented to person place and time. No focal neurological deficits. MEDICAL DECISION MAKING: The patient is a pleasant 79-year-old female who arrives to the emergency department for evaluation of the above-stated complaint. A saline lock was established, CBC, CMP, troponin, BNP were obtained. CBC shows no leukocytosis, with a stable anemia, CMP unremarkable, troponin elevated at 15.3, with repeat 17.5, BNP 149. Upper respiratory BioFire panel negative for infection. Two-view chest x-ray was obtained which shows questionable density, per my initial interpretation, with radiology recommending CT imaging for further diagnostic evaluation. CT imaging of the chest with IV contrast to rule out pulmonary embolus, or other abnormality was obtained which shows no concerning findings. EKG shows sinus rhythm with first degree AV block, at a rate of 71bpm, no ischemia present. Previous for comparison, is not available. Urinalysis shows positive infection. The patient was provided 2 g of IV Rocephin. [facility] the patient's elevated troponin, with no previous EKG, or lab work for comparison. He agreed to except the patient for admission for cardiac rule out, as well as treatment for UTI with IV antibiotics. Please refer to Dr. Miller's documentation for further patient workup and care. DIFFERENTIAL DIAGNOSIS: Urinary tract infection, nephrolithiasis, cardiac ischemia, aortic dissection, pulmonary embolism, pneumothorax, pneumonia, pericarditis, myocarditis, esophageal rupture, GERD, cholecystitis, pancreatitis, musculoskeletal, as well as other pathologies. The patient's case was discussed with Dr. Garcia, who agreed with my evaluation and treatment plan. Continuous quality assurance monitor: Order was placed for continuous quality assurance monitor. Patient was placed on the quality assurance monitor. Patient was noted to be in normal sinus rhythm at an initial rate of 71 bpm. The chart was completed utilizing [employer] voice recognition software. Grammatical errors, random word insertions, pronoun errors, and incomplete sentences are an occasional consequence of this system due to software limitations, ambient noise, and hardware issues. Any formal questions or concerns about the content, text, or information contained within the body of this dictation should be directly addressed to the physician for clarification. Past Med/Surg History Problem List (Updated 09/02/24 @ 16:30 by CALLIE Cardenas) Urinary tract infection (Acute) Chest discomfort (Acute) Social History Smoking Status: Never smoker Preferred Language: French Feels Safe at Home: Yes Allergies Allergies Allergy/AdvReac Type Severity Reaction Status Date / Time No Known Allergies Allergy Unverified 09/02/24 09:39 Home Meds Home Medications Medication Instructions Recorded Confirmed L.acidophilus-L.plantarum-L.rhamnosus 2 cap PO DAILY 09/02/24 09/02/24 1 billion cell capsule,delay rel (Probiotic Pearls Women's) acetaminophen 500 mg tablet 500 mg PO Q6H PRN Pain 09/02/24 09/02/24 apixaban 5 mg tablet (Eliquis) 5 mg PO BID 09/02/24 09/02/24 bumetanide 1 mg tablet 2 mg PO BID 09/02/24 09/02/24 buspirone 15 mg tablet 15 mg PO TID PRN Anxiety 09/02/24 09/02/24 carvedilol 12.5 mg tablet 12.5 mg PO BID 09/02/24 09/02/24 colestipol 1 gram tablet 2 g PO BID 09/02/24 09/02/24 cyanocobalamin (vitamin B-12) 1,000 mcg PO DAILY 09/02/24 09/02/24 1,000 mcg tablet (Vitamin B-12) ergocalciferol (vitamin D2) 1,250 50,000 unit PO WK 09/02/24 09/02/24 mcg (50,000 unit) capsule gabapentin 400 mg capsule 400 mg PO TID 09/02/24 09/02/24 levothyroxine 125 mcg tablet 125 mcg PO DAILYBB 09/02/24 09/02/24 (Synthroid) potassium chloride 20 mEq 20 meq PO BID 09/02/24 09/02/24 tablet,extended release (K-Tab) pramipexole 0.25 mg tablet See Rx Instructions .Route .COMPLEX 09/02/24 09/02/24 Results & Data (ED) Vital Signs Vital Signs - 24 hr 09/02/24 07:55 09/02/24 07:58 09/02/24 07:58 Temperature 36.8 C Temperature Source Temporal Artery Scan Pulse Rate 72 Pulse Rate [Apical] Respiratory Rate 22 22 20 Respiratory Effort / Characteristics Non-Labored Non-Labored Respiratory Depth Normal Normal Blood Pressure 109/56 L Blood Pressure [Right Arm] Blood Pressure Mean 73 Blood Pressure Mean [Right Arm] Pulse Oximetry 93 92 Oxygen Delivery Method Room Air Room Air Sepsis Recent Fever Within 48 Hours Yes Sepsis New/Unexplained Change in Mental Status No Sepsis Action Taken by Nursing No Action Required 09/02/24 08:16 09/02/24 09:30 09/02/24 11:00 Temperature Temperature Source Pulse Rate 72 Pulse Rate [Apical] 71 72 Respiratory Rate 20 22 Respiratory Effort / Characteristics Non-Labored Respiratory Depth Normal Normal Blood Pressure Blood Pressure [Right Arm] 132/58 L 129/64 Blood Pressure Mean Blood Pressure Mean [Right Arm] 82 85 Pulse Oximetry 96 93 Oxygen Delivery Method Room Air Room Air Sepsis Recent Fever Within 48 Hours Sepsis New/Unexplained Change in Mental Status Sepsis Action Taken by Nursing 09/02/24 13:34 09/02/24 13:34 09/02/24 14:40 Temperature Temperature Source Pulse Rate 67 Pulse Rate [Apical] Respiratory Rate 18 20 18 Respiratory Effort / Characteristics Non-Labored Respiratory Depth Normal Blood Pressure 125/64 Blood Pressure [Right Arm] 129/64 Blood Pressure Mean Blood Pressure Mean [Right Arm] 85 Pulse Oximetry 94 94 Oxygen Delivery Method Room Air Room Air Sepsis Recent Fever Within 48 Hours Sepsis New/Unexplained Change in Mental Status Sepsis Action Taken by Prison Medications Current Medication List: was personally reviewed by me Laboratory Data Attestation: I reviewed the patient's lab results. 09/02/24 08:22 09/02/24 08:22 Lab Results 09/02/24 09/02/24 Range/Units 08:22 12:22 WBC 6.01 (4.8-10.8) K/ul RBC 3.56 L (4.20-5.40) M/uL Hgb 10.8 L (12.0-16.0) g/dl Hct 34.7 L (37.0-47.0) % MCV 97.5 (80.0-100.0) fL MCH 30.3 (25.0-34.0) pg MCHC 31.1 L (32.0-36.0) g/dL RDW Std Deviation 50.2 H (36.4-46.3) fL RDW Coeff of Bertha 13.9 (11.5-14.5) % Plt Count 103 L (130-400) K/uL MPV 11.5 (9.4-12.4) fL Immature Gran % (Auto) 0.5 % Neut % (Auto) 79.6 % Lymph % (Auto) 8.7 % [place] % (Auto) 11.0 % Eos % (Auto) 0.0 % Baso % (Auto) 0.2 % Neut # (Auto) 4.79 (1.40-6.50) K/uL Lymph # (Auto) 0.52 L (1.20-3.40) K/uL [place] # (Auto) 0.66 H (0.11-0.59) K/uL Eos # (Auto) 0.00 (0.00-0.50) K/uL Baso # (Auto) 0.01 (0.00-0.20) K/uL Immature Gran # (Auto) 0.03 (0.01-0.20) K/uL Sodium 138 (136-145) mmol/L Potassium 4.3 (3.5-5.1) mmol/L Chloride 106 (98-107) mmol/L Carbon Dioxide 28 (21-32) mmol/L Anion Gap 4 (3-11) BUN 21 (6-23) mg/dl Creatinine 1.04 (0.6-1.2) mg/dl Est Cr Clr Drug Dosing 47.9 ml/min eGFR 54.00 BUN/Creatinine Ratio 20.2 H (10-20) Glucose 130 H (70-99(Fasting)) mg/dl Calcium 9.2 (8.6-10.3) mg/dl Total Bilirubin 0.5 (0.2-1.0) mg/dl AST 11 L (13-39) U/L ALT 8 (7-52) U/L Alkaline Phosphatase 153 H (34-104) U/L Troponin I High Sens 15.3 H 17.5 H (0-14) pg/ml B-Natriuretic Peptide 149 H (0-100) pg/ml Total Protein 6.5 (6.0-8.3) gm/dl Albumin 3.7 (3.4-5.0) gm/dl Globulin 2.8 (2.5-4.0) gm/dl Albumin/Globulin Ratio 1.3 (0.9-2) Administered Medications Discontinued Medications Ceftriaxone Sodium (Rocephin) 2,000 mg in 50 mls @ 100 mls/hr IV NOW STA Stop: 09/02/24 12:29 Last Infusion: 09/02/24 14:06 Dose: Infused Documented By: Admin: 09/02/24 13:14 Dose: 100 mls/hr Documented By: CORA Ioversol (Optiray 320 125ml) 119 ml IV ONCE ONE Stop: 09/02/24 11:49 Last Admin: 09/02/24 11:48 Dose: 119 ml Documented By: ASHANTI Imaging Data Attestation: I personally reviewed and interpreted this imaging study as follows: Radiologist's Impression: Chest X-Ray 09/02/24 08:06 TWO VIEW CHEST CLINICAL HISTORY: Atypical chest pain. FINDINGS: PA and lateral chest radiographs are obtained. No prior studies are available for comparison at the time of dictation. The heart is enlarged noting atherosclerotic calcification of the thoracic aorta. The pulmonary vasculature is noncongested. There is mild bibasilar atelectasis. No airspace consolidation or pleural effusion is identified. An indeterminant density is seen anterior to the spine on the lateral projection. There is no pneumothorax. The skeletal structures are osteopenic. Bilateral shoulder arthroplasties are in place. There are compression deformities in the thoracolumbar spine hyperkyphosis. Fusion hardware is seen in the upper lumbar region. IMPRESSION: 1. Cardiomegaly with no acute cardiopulmonary abnormality identified. 2. There is an indeterminate density anterior to the spine seen only on the lateral projection. This may represent overlap of normal structures. Consider a chest CT for further assessment. ACT 112: Negative or not required by law. Electronically signed by: Mir Lorenzo M.D. 09/02/2024 9:08 AM Chest CTA 09/02/24 10:12 CT angio chest PE protocol CLINICAL HISTORY: PE TECHNIQUE: Multidetector row helical CT of the chest was performed with angiographic protocol. Coronal and sagittal reformations were obtained. Coronal and sagittal MIPS were obtained from the axial data set and were submitted for review. Automated dose lowering techniques and/or adjustment according to patient size were utilized for this exam. CT DOSE: 890.86 mGy.cm Comparison: None available at the time of this dictation. FINDINGS: Lungs and pleura: Atelectasis versus scarring is seen in the dependent portions of the lungs. Heart and pericardium: Cardiomegaly is seen with biatrial enlargement. Vessels: No evidence of pulmonary embolism. Mediastinum and michael: Subcentimeter lymph nodes are seen. Chest wall and lower neck: Unremarkable. Abdomen: Patient is status post cholecystectomy. There is a small hiatal hernia. Bones: Degenerative changes in the thoracic spine. Bilateral shoulder arthroplasties are seen. IMPRESSION: No acute abnormality and in particular no evidence of pulmonary embolus. ACT 112: Negative or not required by law. Electronically signed by: Andres Lim M.D. 09/02/2024 11:55 AM Abdomen/Pelvis CT 09/02/24 12:42 CT abd pelvis wo con CLINICAL HISTORY: Hematuria, ro renal stones TECHNIQUE: Helical axial images of the abdomen and pelvis were obtained. Automated dose lowering techniques and/or adjustment according to patient size were utilized for this exam. This exam was performed without intravenous contrast. CT DOSE: 1451.1 mGy.cm COMPARISON: None available at the time of this dictation. FINDINGS: Lower chest: For findings above the diaphragm, please see CT chest performed same day. Liver: Unremarkable. No focal lesions are seen. Gallbladder and biliary tree: Patient is status post cholecystectomy. Physiologic prominence of the biliary ducts is noted. Pancreas: Fatty replacement of the pancreas is seen. Spleen: Splenule is incidentally noted. Adrenals: Unremarkable. Kidneys and ureters: Contrast is seen in the bilateral collecting systems. No evidence of hydronephrosis. Bladder: Unremarkable. Reproductive organs: Unremarkable. Bowel: Diverticulosis is seen without evidence of diverticulitis. There is a small hiatal hernia. Lymph nodes Retroperitoneal: Unremarkable. Pelvic: Unremarkable. Mesenteric: Unremarkable. Peritoneum: Normal. Vessels: Atherosclerotic calcifications are seen. Abdominal wall: A fat-containing umbilical hernia is seen. Bones: Posterior fixation hardware is seen. Degenerative changes are seen spine. IMPRESSION: 1. No evidence of hydronephrosis. Evaluation for stones is limited by expiratory phase contrast in the ureters. 2. Diverticulosis without diverticulitis. 3. Additional findings as above. ACT 112: Negative or not required by law. Electronically signed by: Andres Lim M.D. 09/02/2024 2:45 PM Discharge Plan Visit Data Chief Complaint: Hematuria ED Provider: Bob Garcia ED Midlevel Provider: Cynthia Kang Discharge Problem: Urinary tract infection, Chest discomfort Patient Disposition: Home - Self-Care Discharge Instructions Interventions: ED Discharge Assessment Last Done: 09/02/24 14:40 Discharge Problem: Urinary tract infection Qualifiers: Urinary tract infection type: acute cystitis Hematuria presence: with hematuria Qualified Code(s): N30.01 - Acute cystitis with hematuria
[2024-09-02 08:46] LABS: Appearance Urine Turbid (Clear); Bacteria Urine Automated 4+ (None Seen); Bilirubin Urine Negative (Negative); Blood Urine 3+ (Negative); Cast Urine Automated 0-2 /lpf (0-2); Glucose Urine UA Negative (Negative); Ketones Urine Negative (Negative); Leukocyte Esterase Urine 3+ (Negative); Nitrite Urine Positive (Negative); Protein Urine 2+ (Negative); RBC Urine Automated >20 /hpf (0-2); Specific Gravity Urine 1.015 (1.000-1.030); Urobilinogen Urine Negative (Negative); WBC Urine Automated >50 /hpf (0-5); pH Urine 5.5 (4.5-7.5)
[2024-09-02 08:47] LABS: Color Urine Amber
[2024-09-02 08:50] LABS: Basophils # (auto) 0.01 K/uL (0.00-0.20); Basophils % (auto) 0.2 %; Hematocrit (blood only) 34.7 % (37.0-47.0); Hemoglobin 10.8 g/dl (12.0-16.0); Immature Granulocytes # (auto) 0.03 K/uL (0.01-0.20); Immature Granulocytes % (auto) 0.5 %; Lymphocytes # (auto) 0.52 K/uL (1.20-3.40); Lymphocytes % (auto) 8.7 %; Mean Corpuscular Hemoglobin 30.3 pg (25.0-34.0); Mean Corpuscular Hgb Conc 31.1 g/dL (32.0-36.0); Mean Corpuscular Volume 97.5 fL (80.0-100.0); Mean Platelet Volume 11.5 fL (9.4-12.4); Monocytes # (auto) 0.66 K/uL (0.11-0.59); Neutrophils # (auto) 4.79 K/uL (1.40-6.50); Neutrophils % (auto) 79.6 %; Platelet Count 103 K/uL (130-400); RDW Coefficient of Variation 13.9 % (11.5-14.5); RDW Standard Deviation 50.2 fL (36.4-46.3); Red Blood Count 3.56 M/uL (4.20-5.40); White Blood Count 6.01 K/ul (4.8-10.8)
[2024-09-02 09:08] LABS: Albumin Globulin Ratio 1.3 (0.9-2); Albumin Level 3.7 gm/dl (3.4-5.0); BUN Creatinine Ratio 20.2 (10-20); Bilirubin,Total 0.5 mg/dl (0.2-1.0); Calcium 9.2 mg/dl (8.6-10.3); Creatinine Clr Calc Pharmacy 47.9 ml/min; Globulin 2.8 gm/dl (2.5-4.0); Potassium 4.3 mmol/L (3.5-5.1); Total Protein 6.5 gm/dl (6.0-8.3)
--- NOTE | 2024-09-02 09:09 | XRay Report ---
TWO VIEW CHEST CLINICAL HISTORY: Atypical chest pain. FINDINGS: PA and lateral chest radiographs are obtained. No prior studies are available for compariso n at the time of dictation. The heart is enlarged noting atherosclerotic calcification of the thoraci c aorta. The pulmonary vasculature is noncongested. There is mild bibasilar atelectasis. No airspace consolidation or pleural effusion is identified. An indeterminant density is seen anterior to the spi ne on the lateral projection. There is no pneumothorax. The skeletal structures are osteopenic. Bilat eral shoulder arthroplasties are in place. There are compression deformities in the thoracolumbar spi ne hyperkyphosis. Fusion hardware is seen in the upper lumbar region. IMPRESSION: 1. Cardiomegaly with no acute cardiopulmonary abnormality identified. 2. There is an indeterminate density anterior to the spine seen only on the lateral projection. This may represent overlap of normal structures. Consider a chest CT for further assessment. ACT 112: Negative or not required by law. Electronically signed by: Mir Lorenzo M.D. 09/02/2024 9:08 AM
[2024-09-02 09:13] LABS: Troponin I High Sensitivity 15.3 pg/ml (0-14)
[2024-09-02 09:29] LABS: Adenovirus PCR Not Detected (NotDetected); Bordetella parapertussis PCR Not Detected (NotDetected); Bordetella pertussis PCR Not Detected (NotDetected); Chlamydia pneumoniae PCR Not Detected (NotDetected); Coronavirus 229E PCR Not Detected (NotDetected); Coronavirus CoV-2 (COVID19)PCR Not Detected (NotDetected); Coronavirus HKU1 PCR Not Detected (NotDetected); Coronavirus NL63 PCR Not Detected (NotDetected); Coronavirus OC43PCR Not Detected (NotDetected); Human Metapneumovirus PCR Not Detected (NotDetected); Influenza A PCR Not Detected (NotDetected); Influenza B PCR Not Detected (NotDetected); Mycoplasma pneumoniae PCR Not Detected (NotDetected); Parainfluenza Virus 1 PCR Not Detected (NotDetected); Parainfluenza Virus 2 PCR Not Detected (NotDetected); Parainfluenza Virus 3 PCR Not Detected (NotDetected); Parainfluenza Virus 4 PCR Not Detected (NotDetected); Respiratory Syncytial VirusPCR Not Detected (NotDetected); Rhinovirus/Enterovirus PCR Not Detected (NotDetected)
[2024-09-02] MEDS: OPTIRAY 320 125ml IV ONE (11:48)
--- NOTE | 2024-09-02 11:56 | CT Scan Report ---
CT angio chest PE protocol CLINICAL HISTORY: PE TECHNIQUE: Multidetector row helical CT of the chest was performed with angiographic protocol. Landry l and sagittal reformations were obtained. Coronal and sagittal MIPS were obtained from the axial zulema a set and were submitted for review. Automated dose lowering techniques and/or adjustment according to patient size were utilized for this exam. CT DOSE: 890.86 mGy.cm Comparison: None available at the time of this dictation. FINDINGS: Lungs and pleura: Atelectasis versus scarring is seen in the dependent portions of the lungs. Heart and pericardium: Cardiomegaly is seen with biatrial enlargement. Vessels: No evidence of pulmonary embolism. Mediastinum and michael: Subcentimeter lymph nodes are seen. Chest wall and lower neck: Unremarkable. Abdomen: Patient is status post cholecystectomy. There is a small hiatal hernia. Bones: Degenerative changes in the thoracic spine. Bilateral shoulder arthroplasties are seen. IMPRESSION: No acute abnormality and in particular no evidence of pulmonary embolus. ACT 112: Negative or not required by law. Electronically signed by: Andres Lim M.D. 09/02/2024 11:55 AM
[2024-09-02] MEDS ORDERED: MAGNESIUM HYDROXIDE SUSP 30 ML UDC PO PRN (12:46)
[2024-09-02] MEDS ORDERED: NITROGLYCERIN SL 0.4 MG/TAB TAB SL PRN (12:46)
[2024-09-02] MEDS ORDERED: ALUMINUM/MAGNESIUM SUSP 30 ML UDC PO PRN (12:46)
[2024-09-02] MEDS ORDERED: POLYETHYLENE (MIRALAX) 17 GM PACK PO PRN (12:46)
--- NOTE | 2024-09-02 13:09 | History & Physical Report ---
Date of Service September 02, 2024 Assessment & Plan (1) Chest discomfort: Plan Chest discomfort, rule out ACS Patient presents with chest discomfort associated with nausea relieved with oxygen use. Troponin elevated at 15.3 at presentation, last echo several years ago per outpatient chart review. Trend troponin, get echo, telemetry monitoring, cardiology consult. Patient follows [facility]. Hematuria UTI History of recurrent UTI Patient presents with " a lot of blood" in the urine since yesterday, denies pain or burning with passing urine and denies abdominal pain. UA suggestive of UTI. Follow admitting blood culture and urine culture, continue with Rocephin, add probiotic. Get CTAP, urology consult. Though baseline hemoglobin around 11 per outpatient chart review and admitting hemoglobin of 10.8, patient slightly tachycardic at bedside exam. Will hold home Eliquis until urology eval. Iron deficiency anemia: Hb stable around baseline, follow HnH daily or prn. BLE chronic wounds: Per patient reports, her BLE wounds have been closed but she is still being actively managed by wound care as an outpatient, she has extensive wrapping over BLE along with Unaboot's. Wound care consult for ongoing management. Other chronic medical conditions: HTN, HFpEF, PE, irritable bowel syndrome---continue with/resume home meds as and when able. DVT prophylaxis: No Chemo Px for now, re: hematuria. resume anticoag as soon as deemed appropriate after uro eval. Conditional code: no intubation and ventilation, ok w/ other components of ACLS. History of Present Illness Chief Complaint: Chest discomfort, hematuria Primary Care Provider: Lily Parham PA-C 79-year-old lady with PMH of hypothyroidism, NIKKI, HFpEF, HTN, PE on Eliquis, irritable bowel syndrome, rectocele, urge incontinence, cystocele, prolapse of vaginal vault after hysterectomy, CKD stage IIIa, restless leg syndrome, iron deficiency anemia [baseline hemoglobin 10-11] presented to the ED with complaint of chest discomfort and hematuria. Patient reports she has been having " a lot of blood" in the urine since yesterday, and it did not stop today. Patient denies abdominal pain or pain / burning while passing urine. Patient reports while she was trying to get up from the bathroom today, she had chest discomfort which was relieved by oxygen use. Patient does use oxygen on and off especially with activity at home. Patient reports brief nausea associated with chest discomfort, no radiation, no diaphoresis. Patient denies sore throat, reports temperature of 101F in the morning, last bowel movement on /no blood in the stool, denies nausea/vomiting/dizziness/cough. Patient does report chronic headache. Patient reports he has chronic BLE wounds which has been closed already, and they does not appear infected. Both lower extremity were extensively wrapped and had uniboots on. Patient denies current use of tobacco/alcohol/recreational drugs. Medications reviewed with the patient at bedside. Plan of care discussed with the patient in detail, she voiced understanding. Conditional code: Patient would not want intubation and ventilation, okay with rest of the components of ACLS. Allergies Allergy/AdvReac Type Severity Reaction Status Date / Time No Known Allergies Allergy Unverified 09/02/24 09:39 Home Medications Medication Instructions Recorded Confirmed Type L.acidophilus-L.plantarum-L.rhamnosus 2 cap PO DAILY 09/02/24 09/02/24 History 1 billion cell capsule,delay rel (Probiotic Pearls Women's) acetaminophen 500 mg tablet 500 mg PO Q6H PRN Pain 09/02/24 09/02/24 History apixaban 5 mg tablet (Eliquis) 5 mg PO BID 09/02/24 09/02/24 History bumetanide 1 mg tablet 2 mg PO BID 09/02/24 09/02/24 History buspirone 15 mg tablet 15 mg PO TID PRN Anxiety 09/02/24 09/02/24 History carvedilol 12.5 mg tablet 12.5 mg PO BID 09/02/24 09/02/24 History colestipol 1 gram tablet 2 g PO BID 09/02/24 09/02/24 History cyanocobalamin (vitamin B-12) 1,000 mcg PO DAILY 09/02/24 09/02/24 History 1,000 mcg tablet (Vitamin B-12) ergocalciferol (vitamin D2) 1,250 50,000 unit PO WK 09/02/24 09/02/24 History mcg (50,000 unit) capsule gabapentin 400 mg capsule 400 mg PO TID 09/02/24 09/02/24 History levothyroxine 125 mcg tablet 125 mcg PO DAILYBB 09/02/24 09/02/24 History (Synthroid) potassium chloride 20 mEq 20 meq PO BID 09/02/24 09/02/24 History tablet,extended release (K-Tab) pramipexole 0.25 mg tablet See Rx Instructions .Route .COMPLEX 09/02/24 09/02/24 History Past Med/Surg History Problem List (Updated 09/02/24 @ 13:11 by Africa Miller MD) Chest discomfort Social History Smoking Status: Never smoker Preferred Language: Hebrew Feels Safe at Home: Yes Review of Systems Review of Systems: Negative otherwise mentioned in HPI. Physical Exam Physical Exam: GENERAL: Alert and oriented x3. NAD, on RA. HEENT: No pallor, no icterus. Pupils equal, round and reactive to light. Oral mucosa moist. NECK: No JVD, no neck masses. HEART: S1 and S2 heard. Regular rate and rhythm. Tachy in 100s. No murmur, no gallop. RESPIRATORY SYSTEM: Normal AP diameter. No accessory muscle use. No wheezing, no crackles. ABDOMEN: Soft, bowel sounds present, nontender, no distention. CENTRAL NERVOUS SYSTEM: No facial droop. Speech is clear. Obeys simple commands. Moves extremities. EXTREMITIES: BLE extensive wrapping for chronic wounds w/ uni boots on, didn't unwrap at request of patient. No tenderness on exam. Results & Data Results & Data Vital Signs (Past 12 Hours) Vital Signs Temp Pulse Pulse Resp BP BP Pulse Ox 09/02/24 11:00 72 22 129/64 93 09/02/24 09:30 71 20 132/58 L 96 09/02/24 08:16 72 09/02/24 07:58 20 09/02/24 07:58 36.8 C 72 22 109/56 L 92 09/02/24 07:55 22 93 O2 Del Method 09/02/24 11:00 Room Air 09/02/24 09:30 Room Air 09/02/24 08:16 09/02/24 07:58 09/02/24 07:58 Room Air 09/02/24 07:55 Room Air
[2024-09-02] MEDS: cefTRIAXone SODIUM 2,000 MG/50 ML BAG IV STA (13:14)
--- NOTE | 2024-09-02 14:48 | CT Scan Report ---
CT abd pelvis wo con CLINICAL HISTORY: Hematuria, ro renal stones TECHNIQUE: Helical axial images of the abdomen and pelvis were obtained. Automated dose lowering tech niques and/or adjustment according to patient size were utilized for this exam. This exam was perfor med without intravenous contrast. CT DOSE: 1451.1 mGy.cm COMPARISON: None available at the time of this dictation. FINDINGS: Lower chest: For findings above the diaphragm, please see CT chest performed same day. Liver: Unremarkable. No focal lesions are seen. Gallbladder and biliary tree: Patient is status post cholecystectomy. Physiologic prominence of the b iliary ducts is noted. Pancreas: Fatty replacement of the pancreas is seen. Spleen: Splenule is incidentally noted. Adrenals: Unremarkable. Kidneys and ureters: Contrast is seen in the bilateral collecting systems. No evidence of hydronephro sis. Bladder: Unremarkable. Reproductive organs: Unremarkable. Bowel: Diverticulosis is seen without evidence of diverticulitis. There is a small hiatal hernia. Lymph nodes Retroperitoneal: Unremarkable. Pelvic: Unremarkable. Mesenteric: Unremarkable. Peritoneum: Normal. Vessels: Atherosclerotic calcifications are seen. Abdominal wall: A fat-containing umbilical hernia is seen. Bones: Posterior fixation hardware is seen. Degenerative changes are seen spine. IMPRESSION: 1. No evidence of hydronephrosis. Evaluation for stones is limited by expiratory phase contrast in t he ureters. 2. Diverticulosis without diverticulitis. 3. Additional findings as above. ACT 112: Negative or not required by law. Electronically signed by: Andres Lim M.D. 09/02/2024 2:45 PM
[2024-09-02] MEDS: ACETAMINOPHEN 325 MG TAB PO PRN (16:48)
[2024-09-02] MEDS: BUMETANIDE 1 MG TAB PO SCH (16:49)
[2024-09-02] MEDS: GABAPENTIN 400 MG CAP PO SCH (16:50)
[2024-09-02] MEDS: PRAMIPEXOLE DIHYDROCHLO 0.25 MG TAB PO SCH ×2 (16:51→21:29)
[2024-09-02] MEDS ORDERED: INFLUENZA VACC TS2024-25(65y+)/PF (IIV3) 0.5mL Syr IM ONE (18:16)
--- NOTE | 2024-09-02 19:46 | Urology Consultation ---
<Statement entered by Jasvir Monk MD - 09/03/24 07:57> I have discussed Ms. Garcia's case with Evans Burgess PA-C and agree with the above documentation. She will require full hematuria workup, however this can be done as an outpatient. In the meantime, would recommend following up cultures, continuing antibiotics and narrowing is culture data becomes avail able. As long as she is emptying, can hold off Beasley catheter placement, however if she develops retention, would place a large catheter and hand irrigate to remove any clots. -Jasvir Monk MD. Date of Consultation September 02, 2024 Assessment & Plan (1) Hematuria: The patient has been admitted on the hospitalist service. From a urologic perspective we recommend the following: It appears that the patient has a urinary tract infection and patient is being treated with antibiotics in form of Rocephin which should continue. Appropriate cultures have been sent and antibiotics be tailored based on these results Is possible that the patient's hematuria is secondary to underlying urinary tract infection along with the fact the patient takes Eliquis. Will be preferable to hold her Eliquis if clinically feasible and it appears of the primary service has done self If there is evidence the patient begins to retain urine, straight catheterization or placement of Beasley catheter may be advisable to promote maximal drainage Oral hydration should be encouraged It does not appears that the patient has clinical signs of a kidney stone (as noted the underlying CT scan the patient had is difficult to interpret for kidney stones due to the fact that she received intravenous contrast); if the patient does not respond to the plan noted above and there is ongoing concern the patient may have nephrolithiasis repeat CT scan without the use of contrast may be considered At the present time The patient is nontoxic-appearing. She is normotensive without tachycardia or fever and does not exhibit leukocytosis. Additional recommendations to be forthcoming based on her clinical course as unfolds History of Present Illness Reason for Consultation: Hematuria Attending Physician: Africa Miller MD History of Present Illness This is an 79-year-old female who presented to the emergency department secondary to hematuria. Patient notes that the hematuria began yesterday and was noted to be painless. She noted that the color of her urine was bright red. She did not have any visible blood clots in her urine. She specifically denies any dysuria or urinary frequency and she feels as though she can empty her bladder completely. She has not had any abdominal pain. She denies any back or flank pain. She has not passed any kidney stones to the best of her knowledge. She adds that she did have a fever of 101 yesterday. She also notes that she takes Eliquis. Since arrival to the emergency department she has had labs and imaging which I independently reviewed. A chest x-ray showed no evidence of pneumonia. A CT scan of the chest showed no evidence of pulmonary emboli or pneumonia. The CT scan of the abdomen pelvis showed no evidence of hydronephrosis. There are no definite kidney stones noted however, intravenous contrast was utilized making the identification of kidney stones difficult. Labs included a CBC were white blood cell count was normal. Her hemoglobin and hematocrit were 10.8 and 34.7. Platelet count is 103,000. Chemistry profile showed sodium and potassium as well as the BUN and creatinine were normal. Urinalysis showed turbid urine which was positive for nitrites. There is 3+ leukocyte esterase and greater than 50 white blood cells per high-power field along with 4+ bacteria. A bio fire study was tested and all viruses tested for were negative. At the time of my interview the patient was resting comfortably in bed and she was in no distress. Allergies Allergy/AdvReac Type Severity Reaction Status Date / Time No Known Allergies Allergy Unverified 09/02/24 09:39 Home Medications Medication Instructions Recorded Confirmed Type L.acidophilus-L.plantarum-L.rhamnosus 2 cap PO DAILY 09/02/24 09/02/24 History 1 billion cell capsule,delay rel (Probiotic [facility]ls Women's) acetaminophen 500 mg tablet 500 mg PO Q6H PRN Pain 09/02/24 09/02/24 History apixaban 5 mg tablet (Eliquis) 5 mg PO BID 09/02/24 09/02/24 History bumetanide 1 mg tablet 2 mg PO BID 09/02/24 09/02/24 History buspirone 15 mg tablet 15 mg PO TID PRN Anxiety 09/02/24 09/02/24 History carvedilol 12.5 mg tablet 12.5 mg PO BID 09/02/24 09/02/24 History colestipol 1 gram tablet 2 g PO BID 09/02/24 09/02/24 History cyanocobalamin (vitamin B-12) 1,000 mcg PO DAILY 09/02/24 09/02/24 History 1,000 mcg tablet (Vitamin B-12) ergocalciferol (vitamin D2) 1,250 50,000 unit PO WK 09/02/24 09/02/24 History mcg (50,000 unit) capsule gabapentin 400 mg capsule 400 mg PO TID 09/02/24 09/02/24 History levothyroxine 125 mcg tablet 125 mcg PO DAILYBB 09/02/24 09/02/24 History (Synthroid) potassium chloride 20 mEq 20 meq PO BID 09/02/24 09/02/24 History tablet,extended release (K-Tab) pramipexole 0.25 mg tablet See Rx Instructions .Route .COMPLEX 09/02/24 09/02/24 History Patient History Social History Smoking Status: Never smoker Second Hand Exposure: No; Hx Alcohol Use: No Hx Substance Use: No Preferred Language: Slovenian Communication Ability: Effective Business Reporting Developer Required: No Beliefs That Will Affect Care: Congregation Current Living Situation: Alone Other Information That Helps Us Care for You: No Feels Safe at Home: Yes Safety Concerns: Feels Safe At This Time Assistive Devices: Glasses and Walker Review of Systems Review of Systems: All systems reviewed & are unremarkable except as noted in HPI & below Physical Exam Constitutional: WD/WN, vitals as above Eyes: no conjunctival abnormality ENMT: Ears: no hearing impairment and no external ear abnormality Mouth: no oropharynx abnormality Neck: trachea midline Respiratory: normal respiratory effort; no respiratory distress and no labored breathing Cardiovascular: Rate/Rhythm: regular rate and regular rhythm Gastrointestinal (Abdomen): Abdomen is soft and nondistended. It is nonrigid and there is no tenderness to palpation. There are no signs of peritonitis. Musculoskeletal: No calf tenderness Skin: no rashes Neurologic: moves all extremities Psychiatric: A+Ox3, euthymic affect Genitourinary: There is no CVA tenderness with percussion bilaterally. Results & Data Vital Signs (Past 12 Hours) Vital Signs Temp Pulse Pulse Resp BP BP Pulse Ox 09/02/24 17:26 37.0 C 86 20 123/70 94 09/02/24 15:54 37.0 C 86 20 123/70 94 09/02/24 15:33 84 09/02/24 14:40 67 18 125/64 94 09/02/24 13:34 20 129/64 09/02/24 13:34 18 94 09/02/24 11:00 72 22 129/64 93 09/02/24 09:30 71 20 132/58 L 96 09/02/24 08:16 72 09/02/24 07:58 20 09/02/24 07:58 36.8 C 72 22 109/56 L 92 09/02/24 07:55 22 93 O2 Del Method O2 Flow Rate 09/02/24 17:26 Nasal Cannula 2 09/02/24 15:54 Nasal Cannula 2 09/02/24 15:33 09/02/24 14:40 Room Air 09/02/24 13:34 09/02/24 13:34 Room Air 09/02/24 11:00 Room Air 09/02/24 09:30 Room Air 09/02/24 08:16 09/02/24 07:58 09/02/24 07:58 Room Air 09/02/24 07:55 Room Air PG Care Time/CCT Total # of Minutes Spent Total Time Spent with Patient: Total time spent is greater than 50% in coordination of care (as documented) at patient's floor/unit and/or counseling patient: Coding Level of Care Code 13048 INT INP/OBS CARE 3/75MIN Diagnoses Hematuria R31.9
[2024-09-02] MEDS ORDERED: PRAMIPEXOLE DIHYDROCHLO 0.25 MG TAB PO PRN (20:00)
[2024-09-02] MEDS: carvediloL 12.5 MG TAB PO SCH (21:30)
[2024-09-02] MEDS: POTASSIUM CHLORIDE CRTAB 20 MEQ TABCR PO SCH (21:32)
[2024-09-03 00:08] LABS: Base Excess VBG 3.1 mEq/L; HCO3 VBG 27 mmol/L; Oxygen Saturation VBG 89.5 %; PCO2 VBG 38 mmHg (38-50); PO2 VBG 56 mmHg; pH VBG 7.46 (7.36-7.41)
[2024-09-03] MEDS: ALBUMIN 25% 25 GM/100 ML VIAL IV ONE (00:17)
--- NOTE | 2024-09-03 00:52 | Communication Note ---
Date of Service: September 03, 2024
[2024-09-03 00:54] LABS: Partial Thromboplastin Ratio 1.1; Partial Thromboplastin Time 30 Seconds (21-31)
[2024-09-03] MEDS: FUROSEMIDE INJ 20 MG/2 ML VIAL IV ONE (00:58)
[2024-09-03] MEDS: CEFEPIME 2000MG 2,000 MG/20 ML SYR IV SCH (01:14)
[2024-09-03 02:05] LABS: A calco-baum cmplx NotReported Not Detected (NotDetected); Bact fragilis Not Reported Not Detected (NotDetected); Blood Culture Id Panel See PCR Comment (NotDetected); C auris Not Reported Not Detected (NotDetected); CTX-M Resistant Gene Not Detected (NotDetected); Calbicans Not Reported Not Detected (NotDetected); Candida glabrata Not Reported Not Detected (NotDetected); Candida krusei Not Reported Not Detected (NotDetected); Cneoformans/gatti Not Reported Not Detected (NotDetected); Cparapsilosis Not Reported Not Detected (NotDetected); E cloacae compx Not Reported Not Detected (NotDetected); Efaecalis Not Reported Not Detected (NotDetected); Efaecium Not Reported Not Detected (NotDetected); Enterobacterales Not Reported DETECTED (NotDetected); Escherichia coli Not Reported DETECTED (NotDetected); H influenzae Not Reported Not Detected (NotDetected); IMP Resistant Gene Not Detected (NotDetected); K aerogenes Not Reported Not Detected (NotDetected); KPC Resistant Gene Not Detected (NotDetected); Koxytoca Not Reported Not Detected (NotDetected); Kpneumoniae grp Not Reported Not Detected (NotDetected); Lmonocyt Not Reported Not Detected (NotDetected); N meningitidis Not Reported Not Detected (NotDetected); NDM Resistant Gene Not Detected (NotDetected); OXA 48 Like Resistant Gene Not Detected (NotDetected); P aeruginosa Not Reported Not Detected (NotDetected); Proteus spp Not Reported Not Detected (NotDetected); Salmonella spp Not Reported Not Detected (NotDetected); Staph lugdunensis Not Reported Not Detected (NotDetected); Staph spp. Not Reported Not Detected (NotDetected); Staphaureus Not Reported Not Detected (NotDetected); Staphepi Not Reported Not Detected (NotDetected); Stenmaltophilia Not Reported Not Detected (NotDetected); Strep agal(GrpB) Not Reported Not Detected (NotDetected); Strep pneum Not Reported Not Detected (NotDetected); Strep pyog (GrpA) Not Reported Not Detected (NotDetected); Strep spp Not Reported Not Detected (NotDetected); VIM Resistant Gene Not Detected (NotDetected); mcr-1 Colistin Resistant Gene Not Detected (NotDetected)
[2024-09-03 02:19] LABS: Enterobacterales DETECTED (NotDetected)
[2024-09-03] MEDS: LEVOTHYROXINE SODIUM 125 MCG TABLET PO SCH (06:15)
--- NOTE | 2024-09-03 07:17 | XRay Report ---
XR chest 1V portable CLINICAL HISTORY: low o2 COMPARISON STUDY: Chest radiograph and chest CT performed earlier today. FINDINGS: Bilateral shoulder arthroplasties are incidentally noted. Lung volumes are diminished. This represents a hypoventilatory study. There is cardiomegaly. No pneumothorax or pleural effusion is pr esent. Linear bibasilar opacities favor atelectasis. There is prominence of the pulmonary vasculature . IMPRESSION: 1. Hypoventilatory study. 2. Cardiomegaly. Pulmonary vascular congestion, possibly technical 3. Linear bibasilar densities suggestive of atelectasis. ACT 112: Negative or not required by law. Electronically signed by: Jim Snyder M.D. 09/03/2024 7:16 AM
[2024-09-03 07:33] LABS: BUN Creatinine Ratio 17.1 (10-20); Creatinine Clr Calc Pharmacy 40.6 ml/min; Hematocrit (blood only) 30.9 % (37.0-47.0); Hemoglobin 9.8 g/dl (12.0-16.0); Magnesium 1.8 mg/dl (1.7-2.4); Mean Corpuscular Hemoglobin 30.9 pg (25.0-34.0); Mean Corpuscular Hgb Conc 31.7 g/dL (32.0-36.0); Mean Corpuscular Volume 97.5 fL (80.0-100.0); Potassium 3.8 mmol/L (3.5-5.1); RDW Coefficient of Variation 13.7 % (11.5-14.5); Red Blood Count 3.17 M/uL (4.20-5.40); White Blood Count 5.66 K/ul (4.8-10.8)
[2024-09-03 07:50] LABS: Mean Platelet Volume 11.5 fL (9.4-12.4); Platelet Count 85 K/uL (130-400); Platelet Estimate Decreased (Normal)
--- NOTE | 2024-09-03 08:21 | Hospitalist Progress Note ---
Date of Service September 03, 2024 Assessment & Plan (1) Complicated UTI (urinary tract infection): (2) E coli bacteremia: (3) Chest discomfort: (4) Hematuria: Plan Pt is an 79yoF with PMHx significant for hypothyroidism, NIKKI, HFpEF, HTN, PE on Eliquis, irritable bowel syndrome, rectocele, urge incontinence, cystocele, prolapse of vaginal vault after hysterectomy, CKD stage IIIa, restless leg syndrome, iron deficiency anemia [baseline hemoglobin 10-11] who presented to the ED with concern for chest discomfort and hematuria. Bacteremia, gram negative Complicated UTI UA suggestive of infection Urine Cx growing gram neg bacilli at this time Blood Cx growing gram neg bacilli at this time Continue IV rocephin based on serology noting E coli and enterbaceterales Follow Cx and adjust abx as needed Chest discomfort, rule out ACS Patient presents with chest discomfort associated with nausea relieved with oxygen use. Trop trend from 15.3-->17.5--->44.6--->91.9 EKG without signs of ischemia Echo with EF 55 to 60%, right ventricular mild dilation, right ventricle motion normal and no significant valvular pathology Continue with telemetry monitoring cardiology consulted, appreciate recs, pt follows with [facility] [place] Cardiology. Recommended/stated the following: "Trend HS TropI until peak No need for additional ischemic cardiac testing at this time Resume Eliquis when safe to do from a hematuria standpoint Continue home maintenance Bumex 2 mg twice daily BP stable on current reduce carvedilol Continue long-term compressive wraps If recurrent chest pain could consider trial of long-acting nitrate." continue to hold Eliquis at this time per recs of Urology continue to monitor on telemetry Hematuria Patient presents with " a lot of blood" in the urine CT abdomen pelvis unremarkable Urology consulted, appreciate recs -Holding home Elqiuis at this time Continue to monitor H&H Continue to monitor for signs of improvement Chronic Anemia Iron Deficiency Anemia hemoglobin chronically low patient with history of iron deficiency anemia A.m. anemia panel continue to monitor Thrombocytopenia platelets acutely low Likely in setting of acute severe illness Consider peripheral smear if no improvement Continue to monitor with a.m. labs Acute Kidney Injury creatinine slightly elevated at 1.2 Home Bumex was held overnight Will resume per recs of cardiology Continue to monitor kidney function with a.m. labs Iron deficiency anemia: Hb stable around baseline, follow HnH daily or prn. BLE chronic wounds: Per patient reports, her BLE wounds have been closed but she is still being actively managed by wound care as an outpatient, she has extensive wrapping over BLE along with Unaboot's. Wound care consult for ongoing management. Other chronic medical conditions: HTN, HFpEF, PE, irritable bowel syndrome---continue with/resume home meds as and when able. Diet: HH DVT prophylaxis: No Chemo Px for now, re: hematuria. Conditional code: no intubation and ventilation, ok w/ other components of ACLS. Dispo: PT/OT for recs once medically stable Admission and Anticipated Discharge Date Admission Date: September 02, 2024 Subjective Patient was seen laying in bed Notes that she has been having fevers and chills States she is very weak Review of Systems Review of Systems: All systems reviewed & are unremarkable except as noted in Subjective Physical Exam Physical Exam: General: Alert, oriented. No acute distress Psych: Appropriate mood and affect Neuro: difficulty with movements in the bed HEENT: NC/AT CV: RRR Resp: Breath sounds clear bilaterally, no increased effort of breathing. Abdomen: Soft, nontender Extremities: edema in lower extremities bilaterally and lower extremities wrapped. Results & Data Results & Data Vital Signs (Past 12 Hours) Vital Signs Temp Pulse Pulse Pulse Resp BP Pulse Ox 09/03/24 07:36 37.0 C 67 18 120/72 97 09/03/24 07:30 65 09/03/24 03:20 37.3 C 72 18 117/65 98 09/02/24 22:53 94 09/02/24 22:51 38.8 C H 86 18 103/63 88 L 09/02/24 22:37 09/02/24 21:55 93 H O2 Del Method O2 Flow Rate 09/03/24 07:36 Nasal Cannula 2 09/03/24 07:30 09/03/24 03:20 Nasal Cannula 2 09/02/24 22:53 Nasal Cannula 2 09/02/24 22:51 Room Air 09/02/24 22:37 Room Air 09/02/24 21:55 Diagnostic Findings Chest X-Ray 09/02/24 08:06 TWO VIEW CHEST CLINICAL HISTORY: Atypical chest pain. FINDINGS: PA and lateral chest radiographs are obtained. No prior studies are available for comparison at the time of dictation. The heart is enlarged noting atherosclerotic calcification of the thoracic aorta. The pulmonary vasculature is noncongested. There is mild bibasilar atelectasis. No airspace consolidation or pleural effusion is identified. An indeterminant density is seen anterior to the spine on the lateral projection. There is no pneumothorax. The skeletal structures are osteopenic. Bilateral shoulder arthroplasties are in place. There are compression deformities in the thoracolumbar spine hyperkyphosis. Fusion hardware is seen in the upper lumbar region. IMPRESSION: 1. Cardiomegaly with no acute cardiopulmonary abnormality identified. 2. There is an indeterminate density anterior to the spine seen only on the lateral projection. This may represent overlap of normal structures. Consider a chest CT for further assessment. ACT 112: Negative or not required by law. Electronically signed by: Mir Lorenzo M.D. 09/02/2024 9:08 AM Chest CTA 09/02/24 10:12 CT angio chest PE protocol CLINICAL HISTORY: PE TECHNIQUE: Multidetector row helical CT of the chest was performed with angiographic protocol. Coronal and sagittal reformations were obtained. Coronal and sagittal MIPS were obtained from the axial data set and were submitted for review. Automated dose lowering techniques and/or adjustment according to patient size were utilized for this exam. CT DOSE: 890.86 mGy.cm Comparison: None available at the time of this dictation. FINDINGS: Lungs and pleura: Atelectasis versus scarring is seen in the dependent portions of the lungs. Heart and pericardium: Cardiomegaly is seen with biatrial enlargement. Vessels: No evidence of pulmonary embolism. Mediastinum and michael: Subcentimeter lymph nodes are seen. Chest wall and lower neck: Unremarkable. Abdomen: Patient is status post cholecystectomy. There is a small hiatal hernia. Bones: Degenerative changes in the thoracic spine. Bilateral shoulder arthroplasties are seen. IMPRESSION: No acute abnormality and in particular no evidence of pulmonary embolus. ACT 112: Negative or not required by law. Electronically signed by: Andres Lim M.D. 09/02/2024 11:55 AM Abdomen/Pelvis CT 09/02/24 12:42 CT abd pelvis wo con CLINICAL HISTORY: Hematuria, ro renal stones TECHNIQUE: Helical axial images of the abdomen and pelvis were obtained. A utomated dose lowering techniques and/or adjustment according to patient size were utilized for this exam. This exam was performed without intravenous contrast. CT DOSE: 1451.1 mGy.cm COMPARISON: None available at the time of this dictation. FINDINGS: Lower chest: For findings above the diaphragm, please see CT chest performed same day. Liver: Unremarkable. No focal lesions are seen. Gallbladder and biliary tree: Patient is status post cholecystectomy. Physiologic prominence of the biliary ducts is noted. Pancreas: Fatty replacement of the pancreas is seen. Spleen: Splenule is incidentally noted. Adrenals: Unremarkable. Kidneys and ureters: Contrast is seen in the bilateral collecting systems. No evidence of hydronephrosis. Bladder: Unremarkable. Reproductive organs: Unremarkable. Bowel: Diverticulosis is seen without evidence of diverticulitis. There is a small hiatal hernia. Lymph nodes Retroperitoneal: Unremarkable. Pelvic: Unremarkable. Mesenteric: Unremarkable. Peritoneum: Normal. Vessels: Atherosclerotic calcifications are seen. Abdominal wall: A fat-containing umbilical hernia is seen. Bones: Posterior fixation hardware is seen. Degenerative changes are seen spine. IMPRESSION: 1. No evidence of hydronephrosis. Evaluation for stones is limited by expiratory phase contrast in the ureters. 2. Diverticulosis without diverticulitis. 3. Additional findings as above. ACT 112: Negative or not required by law. Electronically signed by: Andres Lim M.D. 09/02/2024 2:45 PM Chest X-Ray 09/02/24 23:30 XR chest 1V portable CLINICAL HISTORY: low o2 COMPARISON STUDY: Chest radiograph and chest CT performed earlier today. FINDINGS: Bilateral shoulder arthroplasties are incidentally noted. Lung volumes are diminished. This represents a hypoventilatory study. There is cardiomegaly. No pneumothorax or pleural effusion is present. Linear bibasilar opacities favor atelectasis. There is prominence of the pulmonary vasculature. IMPRESSION: 1. Hypoventilatory study. 2. Cardiomegaly. Pulmonary vascular congestion, possibly technical 3. Linear bibasilar densities suggestive of atelectasis. ACT 112: Negative or not required by law. Electronically signed by: Jim Snyder M.D. 09/03/2024 7:16 AM
[2024-09-03] MEDS ORDERED: ADVANCED PROBIOTIC 625 MG CAPSULE PO SCH (09:00)
[2024-09-03] MEDS: CYANOCOBALAMIN (B-12) 500 MCG TABLET PO SCH (09:21)
[2024-09-03] MEDS: carvediloL 3.125 MG TAB PO SCH (09:22)
[2024-09-03] MEDS ORDERED: Nursing to Pharmacy Communication SCH (09:45)
[2024-09-03] MEDS: ADVANCED PROBIOTIC 625 MG CAPSULE PO ONE (09:59)
--- NOTE | 2024-09-03 10:56 | Urology Progress Note ---
Date of Service September 03, 2024 Assessment & Plan (1) Hematuria: (2) Urinary tract infection: Plan: Follow-up of hematuria, UTI Febrile last night at T-38.8; afebrile this morning Labs reviewedcreatinine 1.23, no leukocytosis Blood culture prelim with gram-negative bacilli Urine culture prelim with gram-negative bacilli Recommend continue broad-spectrum antibiotics and narrow per sensitivity data when available Recommend continue to monitor bladder emptying As long as she is emptying her bladder, can avoid Beasley catheter placement If she develops urinary retention, then recommend place a large catheter and hand irrigate to remove any clots Recommend hematuria workup as an outpatient will follow Admission and Anticipated Discharge Date Admission Date: September 02, 2024 Subjective Patient seen and examined at bedside this morning. She is awake and sitting up in bed, in no acute distress. She reports feeling tired. Denies flank or abdominal pain. She is voiding, incontinent and with pure wick in place. She is unsure if she is still having hematuria. PureWick canister was just changed and no output at present. Denies fever or chills at present. Review of Systems Constitutional: as per Subjective / HPI Genitourinary: as per Subjective / HPI Physical Exam Constitutional: no acute distress Respiratory: normal respiratory effort; no respiratory distress and no labored breathing Gastrointestinal (Abdomen): Inspection/Auscultation: abdomen normal to inspection Musculoskeletal: Head/Neck/Chest: normocephalic Neurologic: moves all extremities and awake Psychiatric: Orientation: alert and oriented x 3 Results & Data Vital Signs (Past 12 Hours) Vital Signs Temp Pulse Pulse Pulse Resp BP Pulse Ox 09/03/24 07:36 37.0 C 67 18 120/72 97 09/03/24 07:30 65 09/03/24 03:20 37.3 C 72 18 117/65 98 O2 Del Method O2 Flow Rate 09/03/24 07:36 Nasal Cannula 2 09/03/24 07:30 09/03/24 03:20 Nasal Cannula 2 PG Care Time/CCT Total # of Minutes Spent Total Time Spent with Patient: Total time spent is greater than 50% in coordination of care (as documented) at patient's floor/unit and/or counseling patient: Coding Level of Care Code 46995 SUB INP/OBS CARE 1/25MIN Diagnoses Hematuria R31.9 Urinary tract infection N30.01 Hematuria presence: with hematuria Urinary tract infection type: acute cystitis (2) Urinary tract infection Hematuria presence: with hematuria Urinary tract infection type: acute cystitis Qualified Code(s): N30.01 - Acute cystitis with hematuria
[2024-09-03] MEDS ORDERED: cefTRIAXone SODIUM 2,000 MG/50 ML BAG IV SCH (12:00)
--- NOTE | 2024-09-03 12:51 | Cardiology Consultation ---
Date of Consultation September 03, 2024 Assessment & Plan (1) Chest discomfort: 2. Urosepsis, bacteremiapositive urine culture/blood culture gram-negative bacilli 3. Hematuria 4. HFpEF 5. Hypertension 6. Recurrent VTE 7. 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 Anemia, thrombocytopenia 9. CKD Patient admitted with hematuria in the setting of recurrent UTI/urosepsis. Responding to IV antibiotics. During her illness course had 1 episode of brief chest discomfort without recurrence. Minimal HS TropI elevation but ECG and echo unchanged and had cardiac catheterization 2 years ago which showed essentially normal coronaries. Suspicion for ACS is very low. Possible may have some small component of vasospasm but overall suspect HS TropI secondary to demand/sepsis. On exam appears well compensated without pulmonary congestion. Recommendations: Trend HS TropI until peak No need for additional ischemic cardiac testing at this time Resume Eliquis when safe to do from a hematuria standpoint Continue home maintenance Bumex 2 mg twice daily BP stable on current reduce carvedilol Continue long-term compressive wraps If recurrent chest pain could consider trial of long-acting nitrate. Will follow History of Present Illness Attending Physician: Sarah Hutchinson MD History of Present Illness Ms. Garcia is a very pleasant 79 year-old woman known to me from prior venous procedures seen today in hospital in the setting of chest discomfort, elevated HS TropI. 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 Has a history of venous insufficiency post bilateral GSV VenaSeal. Has had prior venous ulcers followed by wound clinic and has chronic lower extremity edema managed with Unna boot done by home health. Admitted yesterday after 2 to 3 days of hematuria. Symptoms accompanied by chills and fever to 101. Has had prior UTIs and symptoms similar except for lack of dysuria. She reports 1 episode of chest pain which occurred while attempting get up from the bathroom while in hospital. Improved with oxygen. No recurrence of chest pain since. ECG unchanged normal sinus rhythm with right bundle branch block, HS TropI has trended up from 15-45-92 (of note previously has had HS TropI up to 100s during prior noncardiac hospitalizations). Mild congestion on chest x-ray and BNP slightly elevated at 143. Chest CTA negative for PE with mild dilated RV, mild CAC. Repeat echo showed preserved LV function with no new regional wall motion abnormalities. Last cardiac cath 01/2022 showed normal coronary arteries. RA 18, PA 43/27 (33), wedge 25. At baseline currently patient lives at home by herself, has home health. Able to walk with a walker around her home without symptoms. No exertional chest pain. Allergies Allergy/AdvReac Type Severity Reaction Status Date / Time No Known Allergies Allergy Verified 09/03/24 08:01 Home Medications Medication Instructions Recorded Confirmed Type amitriptyline 25 mg tablet 25 mg PO HS 09/21/22 01/24/24 History carvedilol 12.5 mg tablet 12.5 mg PO BID 09/21/22 01/24/24 History colestipol 1 gram tablet 2 g PO AMHS 09/21/22 01/24/24 History cyanocobalamin (vitamin B-12) 1,000 mcg PO QAM 09/21/22 01/24/24 History 1,000 mcg tablet (Vitamin B-12) pramipexole 0.25 mg tablet 0.25 mg PO .QAFTERNOON 09/21/22 01/24/24 History pramipexole 0.25 mg tablet 0.5 mg PO HS 09/21/22 01/24/24 History ergocalciferol (vitamin D2) 1,250 1,250 mcg PO .tuesday10/18/22 01/24/24 History mcg (50,000 unit) capsule clonazepam 1 mg tablet 1 mg PO HS PRN RLS 05/02/23 01/24/24 History clotrimazole 1 % vaginal cream 1 applic vaginal HS 05/02/23 01/24/24 History levothyroxine 125 mcg tablet 125 mcg PO QAM 05/02/23 01/24/24 History Saccharomyces boulardii 250 mg 250 mg PO BID #20 caps 05/09/23 01/24/24 Rx capsule apixaban 5 mg tablet (Eliquis) 5 mg PO BID #30 tabs 07/18/23 01/24/24 Rx buspirone 15 mg tablet 15 mg PO BID 12/21/23 01/24/24 History gabapentin 400 mg capsule 400 mg PO TID 12/21/23 01/24/24 History oxycodone 5 mg tablet 5 mg PO DAILY PRN Pain 12/21/23 01/24/24 History ferrous sulfate 325 mg (65 mg 325 mg PO QAM 01/09/24 01/24/24 History iron) tablet (iron) diphenoxylate-atropine 2.5 1 tab PO Q8 PRN Diarrhea 30 days 01/17/24 01/24/24 Rx mg-0.025 mg tablet #30 tabs menthol 0.44 %-zinc oxide 20.6 % 1 applic topical TID PRN 01/24/24 01/24/24 History topical ointment (Calmoseptine) conjugated estrogens 0.625 mg/gram 0.625 mg vaginal DAILY #30 grams 02/10/24 02/10/24 Rx vaginal cream L.acidophilus-L.plantarum-L.rhamnosus 2 cap PO DAILY 09/02/24 09/02/24 History 1 billion cell capsule,delay rel (Probiotic Pearls Women's) acetaminophen 500 mg tablet 500 mg PO Q6H PRN Pain 09/02/24 09/02/24 History apixaban 5 mg tablet (Eliquis) 5 mg PO BID 09/02/24 09/02/24 History bumetanide 1 mg tablet 2 mg PO BID 09/02/24 09/02/24 History buspirone 15 mg tablet 15 mg PO TID PRN Anxiety 09/02/24 09/02/24 History carvedilol 12.5 mg tablet 12.5 mg PO BID 09/02/24 09/02/24 History colestipol 1 gram tablet 2 g PO BID 09/02/24 09/02/24 History cyanocobalamin (vitamin B-12) 1,000 mcg PO DAILY 09/02/24 09/02/24 History 1,000 mcg tablet (Vitamin B-12) ergocalciferol (vitamin D2) 1,250 50,000 unit PO WK 09/02/24 09/02/24 History mcg (50,000 unit) capsule gabapentin 400 mg capsule 400 mg PO TID 09/02/24 09/02/24 History levothyroxine 125 mcg tablet 125 mcg PO DAILYBB 09/02/24 09/02/24 History (Synthroid) potassium chloride 20 mEq 20 meq PO BID 09/02/24 09/02/24 History tablet,extended release (K-Tab) pramipexole 0.25 mg tablet See Rx Instructions .Route .COMPLEX 09/02/24 09/02/24 History Patient History Medical History Acute kidney injury Anemia of chronic disease Elevated troponin Iron deficiency anemia History of pulmonary embolism UTI (urinary tract infection) Nausea & vomiting SOB (shortness of breath) Heart failure, chronic, with acute decompensation Elevated troponin Cardiorenal syndrome with renal failure Venous insufficiency Hyperkalemia Heart failure Contusion Acute kidney injury superimposed on CKD NIKKI (obstructive sleep apnea) Peripheral neuropathy Chronic anticoagulation NIKKI (obstructive sleep apnea) JOSE (generalized anxiety disorder) Vitamin D deficiency Anemia Pulmonary embolism CKD (chronic kidney disease), stage III Depression IBS (irritable bowel syndrome) Hypothyroidism HTN (hypertension) Surgical History History of open reduction and internal fixation (ORIF) procedure Hx of total shoulder replacement History of cataract extraction S/P cardiac cath History of spinal fusion History of bilateral knee replacement S/P left knee arthroscopy History of hysterectomy S/P cholecystectomy Family History Father Pulmonary embolism, Onset Age: 69 Stroke Mother Arthritis Hypertension Sister Breast cancer Social History (System 09/03/24 @ 08:01 by Saray Parker) Smoking Status: Never smoker Second Hand Exposure: No; Do You Dip or Chew Tobacco: No; Hx Alcohol Use: No Hx Substance Use: No Preferred Language: Khmer Communication Ability: Effective Visual Impairment: Limited Hearing Ability: Hard of Hearing 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 She also has a niece that assists her frequently. Feels Safe at Home: Yes during the past year weight has: remained stable Assistive Devices: Glasses and Walker Review of Systems Review of Systems: All systems reviewed & are unremarkable except as noted in HPI & below Physical Exam Physical Exam: General: Comfortable HEENT: Sclerae anicteric, nasal cannula in place Lungs: Clear to auscultation bilaterally, no crackles or wheezes Cardiac: Regular rate and rhythm, 2 out of 6 systolic ejection murmur heard best at left upper sternal border Vascular: 2+ radial Abdomen: Soft, nontender, positive bowel sounds Extremities: Well perfused, wraps with Coban in place, normal digit capillary refill Psych: Alert orient x3, normal affect and mood Results & Data Vital Signs (Past 12 Hours) Vital Signs Temp Pulse Pulse Pulse Resp BP Pulse Ox 09/03/24 10:59 09/03/24 07:36 98.6 F 67 18 120/72 97 09/03/24 07:30 65 09/03/24 03:20 99.1 F 72 18 117/65 98 O2 Del Method O2 Flow Rate 09/03/24 10:59 Nasal Cannula 2 09/03/24 07:36 Nasal Cannula 2 09/03/24 07:30 09/03/24 03:20 Nasal Cannula 2 PG Care Time/CCT Total # of Minutes Spent Total Time Spent with Patient: Total time spent is greater than 50% in coordination of care (as documented) at patient's floor/unit and/or counseling patient: Coding Level of Care Code 56616 INT INP/OBS CARE 2/55MIN Diagnoses Chest discomfort R07.89
[2024-09-03] MEDS: cefTRIAXone SODIUM 2,000 MG/50 ML BAG IV SCH (14:12)
--- OUTSIDE RECORDS SUMMARY | 2024-09-03 19:55 | External Medical Summary | Summary of Care ---
Author Name Unknown Organization [facility] Address [address] [place] [address] Phone [phone] Care Team Providers Care Aerodynamics Professor Name Role Phone Lily Parham PA-C Primary Care Provider [phone] Reason for Referral * Medication Prior Authorization - Closed Specialty Diagnoses / Procedures Referred By Sophy ruelas Referred To Contact Diagnoses Arthralgia, unspecified joint Lily Parham PA-C [address] [place] [address] Referral ID Status Reason Start Date Expiration Date Visits Re quested Visits Authorized [id number] Closed 999 999 Reason for Visit * Reason Onset Date Comments Advice 08/30/2024 Tramadol Encounter Details Date Type Department Care Team ([facility] st Contact Info) Description 08/30/2024 Telephone [facility] [address] [place] [address] Lily Parham PA-C [address], [place] [id number] Advice (Tramadol ) Allergies No known active allergiesdocumented as of this encounter (statuses as of 08/31/2024) Medications Medication Sig Dispensed Refills Start Date End Date Status vitamin b 12 (CYANOCOBALAMIN) 1000 MCG TABS Take 1 Tablet by mouth in the morning. 7 Active docusate sodium (COLACE) 100 MG Capsule Take 1 Capsule by mouth 2 times a day as needed for Constipation. Active clonazePAM (KLONOPIN) 1 MG TabletIndications:R estless legs syndrome TAKE 1 TABLET PRIOR TO SLEEP, FOR PLMS And RLS 90 Tab 8 Active Additional Information Patient not taking.Reported on 06/21/2024 Saccharomyces boulardii 250 MG Oral Capsule (Florastor)Indicati ons:Diarrhea, unspecified type Take 1 Capsule by mouth in the morning and 1 Capsule before bedtime. 60 Capsule 2 3 Active Diclofenac Sodium 1 % External Gel (Voltaren Arthritis Pain)Indications:Ar thralgia, unspecified joint Apply topically to affected area 4 times a day as needed (pain). Apply to hand arthritis 300 g 1 3 Active Amitriptyline HCl 25 MG Oral Tablet (Elavil)Indications :Persistent insomnia,New daily persistent headache TAKE 1 TABLET EVERY NIGHT 1 HOUR BEFORE BEDTIME 90 Tablet 1 3 Active Additional Information Patient not taking.Reported on 06/21/2024 LORazepam 0.5 MG Oral Tablet (Ativan)Indications :Diarrhea, unspecified type,Arthritis One tab 30 min before mri, repeat 15 min prior and at start 1 Tablet 3 Active Additional Information Patient not taking.Reported on 12/16/2023 Potassium Chloride Kadie ER 20 MEQ Oral Tablet Extended Release Take 1 Tablet by mouth in the morning and 1 Tablet before bedtime. 120 Tablet 4 Active Apixaban 5 MG Oral Tablet (Eliquis) Take 1 Tablet by mouth in the morning and 1 Tablet before bedtime. 180 Tablet 1 4 Active busPIRone HCl 15 MG Oral Tablet (Buspar) Take 1 Tablet by mouth in the morning and 1 Tablet at noon and 1 Tablet before bedtime. 270 Tablet 1 4 Active Carvedilol 12.5 MG Oral Tablet (Coreg) Take 1 Tablet by mouth in the morning and 1 Tablet before bedtime. with food. 180 Tablet 3 4 Active Clotrimazole 1 % Vaginal CreamIndications:Va joseph itching Apply a pea sized dollop to vaginal entrance and labia at bedtime nightly 45 g 3 4 Active Colestipol HCl 1 GM Oral Tablet (Colestid)Indicatio ns:Irritable bowel syndrome with diarrhea Take 2 Tablets by mouth in the morning and 2 Tablets before bedtime. Take extra table on days with diarrhea for max of 5 per day. 450 Tablet 3 4 Active Diphenoxylate-Atrop ine 2.5-0.025 MG Oral Tablet (Lomotil)Indication s:Diarrhea, unspecified type Take 1 Tablet by mouth every 6 hours as needed for Diarrhea. 30 Tablet 1 4 Active Ferrous Sulfate 325 (65 Fe) MG Oral Tablet (Feosol) Take 1 Tablet by mouth daily with breakfast. Take 1 tab daily 180 Tablet 1 4 Active Gabapentin 400 MG Oral Capsule (Neurontin)Indicati ons:Arthralgia, unspecified joint Take 1 Capsule by mouth in the morning and 1 Capsule at noon and 1 Capsule before bedtime. 270 Capsule 1 4 Active Levothyroxine Sodium 125 MCG Oral Tablet (Levoxyl)Indication s:Other specified hypothyroidism Take 1 Tablet by mouth in the morning. (at least 30 min prior to breakfast or other meds). 90 Tablet 1 4 Active Nystatin 011733 UNIT/GM External Powder (Nystop) Apply topically to affected area 3 times a day. Apply to abdominal folds 60 g 1 4 Active Pramipexole Dihydrochloride 0.25 MG Oral Tablet (Mirapex)Indication s:Restless legs syndrome TAKE 1 TABLET IN THE AFTERNOON AND 2 TABLETS AT BEDTIME 270 Tablet 3 4 Active Vitamin D (Ergocalciferol) 1.25 MG (34701 UT) Oral Capsule (Drisdol) TAKE 1 CAPSULE ONCE WEEKLY 12 Capsule 1 4 Active Bumetanide 1 MG Oral Tablet (Bumex) Take 1 Tablet by mouth in the morning and 1 Tablet before bedtime. 120 Tablet 3 4 Active Bumetanide 1 MG Oral Tablet Take extra as directed by Nephrology for fluid overload 60 Tablet 3 4 Active traMADol HCl 50 MG Oral Tablet (Ultram) Take 1 Tablet by mouth every 8 hours as needed for Pain, Moderate. 30 Tablet 4 Active HYDROcodone-Acetami nophen 5-325 MG Oral TabletIndications:A rthralgia, unspecified joint Take 1 Tablet by mouth every 6 hours as needed for Pain, Severe. On PT days only 12 Tablet 4 Active oxyCODONE HCl 5 MG Oral Tablet (Oxy IR)Indications:Arth ritis Take 1 Tablet by mouth every 4 hours as needed for Pain, Severe. 180 Tablet 3 08/31/20 24 Discontinued documented as of this encounter (statuses as of 08/31/2024) Active Problems Problem Noted Date Diagnosed Date Recurrent major depressive disorder 07/27/2023 Body mass index (BMI) of 50.0 to 59.9 in adult 0 11/29/2022 Other pulmonary embolism with acute cor pulmonal e 04/06/2022 Chronic diastolic heart fail ure with preserved ejection fraction 02/16/2022 Chronic kidney disease, stage 3a 03/24/2021 Overview: Per CKD protocol Hypertensive kidney disease with stage 3a chronic kidney disease 09/22/2020 Overview: Per CKD protocol Iron deficiency anemia 06/19/2020 Elevated homocysteine 12/27/2019 Rectocele 01/12/2019 Cystocele, lateral 01/12/2019 Prolapse of vaginal vault after hysterectomy 11/2018 Warfarin anticoagulation 09/21/2018 Renal osteodystrophy 08/28/2018 History of pulmonary embolism 08/29/2017 Lymphedema 07/13/2017 Controlled substance agreement signed 01/02/2016 Vitamin D deficiency 05/03/2012 Insomnia with sleep apnea 05/25/2011 Obstructive sleep apnea 03/23/2011 Overview: Compliance 03/31 to 05/17/11 -- 75%, AHI 4.1 04/26/11 Add 2L to CPAP Compliance 04/01 to 04/19/11 -- 52% days used >=4hrs, device used 89% of total days, AHI 4.9, pressures 7-11. 02/24/11 PSG -- RDI 12.5, hypoxia, significant PLMD, PVC noted Start CPAP 5-15 cwp. [facility] Periodic limb movement disorder 03/23/2011 Restless legs syndrome 03/23/2011 HYPOXEMIA - during sleep 03/23/2011 Overview: 04/26/11 - add 2 LPM to CPAP Nocturnal ox CPAP/RA 04/20/11 -- low 79%, basal 91%, time <=88% 15.7 mins, GOLDY 11 [facility] Irritable bowel syndrome 06/10/2010 Osteoarthrosis 11/19/2002 Urge incontinence 10/19/2001 Osteoporosis 10/19/2001 HTN, goal below 140/90 Hypothyroidism CLASSICAL MIGRAINE WITHOU MENTION OF INTRACTABLE MIGRAINE Major depressive disorder Overview: ICD-10 update of inactive term documented as of this encounter (statuses as of 08/31/2024) Resolved Problems Problem Noted Date Diagnosed Date Resolved Date Skin ulcer of toe of left fo ot with fat layer exposed 12/16/2023 12/16/2023 Body mass index (BMI) 40.0-44.9, adult 12/16/2023 12/16/2023 Inflammation of sacroiliac joint 02/16/2022 11/29/2022 Major depressive disorder wi th single episode, in partial remission 02/16/2022 09/30/2022 Body mass index (BMI) of 50. 0 to 59.9 in adult 02/16/2022 09/30/2022 Acute on chronic diastolic heart failure 02/16/2022 11/29/2022 Body mass index (BMI) of 45. 0 to 49.9 in adult 10/26/2021 12/16/2023 Overview: Per Obesity protocol - Per Obesity protocol - Per Obesity protocol Body mass index (BMI) of 50. 0 to 59.9 in adult 02/23/2021 10/29/2021 Overview: Per Obesity protocol - Per Obesity protocol Body mass index (BMI) of 45. 0 to 49.9 in adult 05/26/2020 02/26/2021 Overview: Per Obesity protocol Morbid obesity with body mas s index of 40.0-44.9 in adult 12/27/2019 05/29/2020 Overview: Per Obesity protocol Advanced directives, counseling/discussion 01/12/2019 10/24/2019 Hypertensive kidney disease with chronic kidney disease stage III 01/04/2019 09/25/2020 Overview: Per CKD protocol Anemia in stage 3 chronic kidney disease 08/28/2018 10/24/2019 Body mass index (BMI) of 40. 0 to 44.9 in adult 08/15/2017 01/24/2020 Overview: Per Obesity protocol #1 Pulmonary embolism (HCC) (ak a PULMONARY EMBOLISM (HCC)) 09/10/2015 08/29/2017 Other pulmonary embolism and infarction 04/11/2015 08/29/2017 Kidney disease, chronic, sta ge III (GFR 30-59 ml/min) 05/09/2013 09/29/2018 Obesity, morbid (more than 1 00 lbs over ideal weight or BMI > 40) 04/28/2010 05/31/2017 Overview: Per Obesity Protocol, #19 ICD-10 update of inactive term COMMON MIGRAINE WITH INTRACT ABLE MIGRAINE, SO STATED 04/26/2002 09/21/2019 Overview: history Allergic rhinitis 04/26/2002 01/05/2019 documented as of this encounter (statuses as of 08/31/2024) Immunizations Name Administration Dates Next Due COVID-19 mRNA, LNP-s, No Pre serve, 2-Dose Series (MeroArte) 11/10/2021,01/21/2021,12/31/2020 Pneumococcal Conjugate Vacc, 13 Valent (Prevnar) 01/02/2016 Pneumococcal Polysaccharide PPV23 (Pneumovax) 05/03/2008 Seasonal Influenza Vac., MDV , IM, 0.5 mL (Fluzone) 11/11/2014,10/24/2009(Deferred: Patient Refused),09/10/2003,08/31/2002 Seasonal Influenza Virus Vac cine, Unspecified Formulation 08/18/2022,09/06/2019,09/10/2003,08/14 Seasonal Influenza, PF, 6 M & above, IM , (FluLaval or Fluzone) 08/25/2021,08/14/2020,09/06/2019,08/14,08/24/2017 Seasonal Influenza, Quadriva lent Hd (Fluzone Hd) 07/27/2023,08/18/2022 Seasonal Influenza, Quadriva lent Hd, 65+ Yrs 09/03/2020 Seasonal Influenza, Quadriva lent, No Preserve, IM 09/06/2016,09/01/2015 09/01/2016 TD - Tetanus/Diptheria (ADULT) 05/03/2008 TD, Preservative Free 05/03/2008 TDAP (age 10 and older)(Boostrix) 05/15/2022 05/15/2032 TDAP, Age 7 and older, IM (Adacel) 04/03/2015 Varicella Zoster Vaccine (Adult) 05/07/2014 documented as of this encounter Social History Tobacco Use Types Packs/Day Years Used Date Smoking Tobacco: Never Smokeless Tobacco: Never Alcohol Use Standard Drinks/Week Comments No 0 (1 standard drink = 0.6 oz pur e alcohol) PHQ-2 Answer Date Recorded PHQ Adult Total Score 0 09/30/2023 Hunger Vital Sign Answer Date Recorded Within the past 12 months, y ou worried that your food would run out before you got the money to buy more. Never true 11/09/20 23 Within the past 12 months, t he food you bought just didn't last and you didn't have money to get more. Never true 11/09/2023 Childcare Answer Date Recorded Do you feel overwhelmed with taking care of a child, family member or friend? No 11/09/2023 Does your family need help f inding childcare? (Household - for ages 0-17 years) Not on file 11/09/2023 Clothing Answer Date Recorded Have you been unable to get clothing when it was really needed? No 11/09/2023 Is your family able to get c lothes or diapers when needed? (Household - for ages 0-17 years) Not on file 11/09/2023 Personal Safety Answer Date Recorded Do you feel unsafe or have concerns for your saf ety? No 11/09/2023 Do you have concerns for you r family's safety? (Household - for ages 0-17 years) Not on file 11/09/2023 Utilities Answer Date Recorded Do you have trouble paying y our heating, water, or electric bill? No 11/09/2023 Is your family able to pay t he heat, water, or electric bill? (Household - for ages 0-17 years) Not on file 11/09/2023 Does your family have access to good internet? (Household - for ages 0-17 years) Not on file 11/09/2023 Employment Status Answer Date Recorded Are you unemployed or without regular income? No 11/09/2023 Does the household have a re gular source of income? (Household - for ages 0-17 years) Not on file 11/09/2023 Social Connections Answer Date Recorded How often do you feel lonely or isolated from th ose around you? Never 11/09/2023 Financial Resource Strain Answer Date R ecorded Do you have any trouble payi ng for your medications, or do you think you might in the future? No 11/09/2023 Does your family have troubl e paying for medicine? (Household - for ages 0-17 years) Not on file 11/09/2023 Transportation Needs Answer Date Record ed READ ONLY Do you have troubl e getting a ride to medical visits or work? Sometimes True 11/09/2023 Does your family have a hard time getting a ride to doctors visits? (Household - for ages 0-17 years) Not on file 11/09/2023 Has lack of transportation k ept you from medical appointments, meetings, work, or from getting things needed for daily living? Check all that apply. (Adult - for ages 18 years and over) Not on file 11/09/2023 Do you (or your family) have trouble finding or paying for a ride (transportation)? (Household - for ages 0-17 years) Not on file 11/09/2023 Housing Stability Answer Date Recorded Do you currently live in a s helter or have no steady place to sleep at night? No 11/09/2023 READ ONLY Do you think you a re at risk of becoming homeless? No 11/09/2023 Does your family worry about paying for your home or becoming homeless? (Household - for ages 0-17 years) Not on file 1 01/10/2023 Are you homeless or worried that you might be in the future? (Adult - for ages 18 years and over) Not on file Are you (or your family) arely eless or worried that you might be in the future? (Household - for ages 0-17 years) Not on file Food Insecurity Answer Date Recorded Do you need food for this week? No 11/09/2023 Are you able to get enough f ood for your family? (Household - for ages 0-17 years) Not on file 11/09/2023 Does your family need food t his week? (Household - for ages 0-17 years) Not on file 11/09/2023 Do you always have enough fo od for your family? (Household - for ages 0-17 years) Not on file 11/09/2023 Sex and Gender Information Value Date Recorded Sex Assigned at Not on file Gender Identity Not on file Sexual Orientation Not on file Job Start Date Occupation Industry Not on file Not on file Not on file documented as of this encounter Miscellaneous Notes * Telephone Encounter - Nayely Bunch LPN - 08/31/2024 4:04 PM EDT patient aware Pt states she is not doing anymore PT because when working on stairs, it caused more pain in her knee. [facility] physical therapy is not coming, until she feels she can work on stairs again. In the meantime she is doing home exercises herself. Pt indicates she is in constant pain in her knee. She will be out of tramadol tonight. * Telephone Encounter - Hailey Bridges LPN - 08/31/2024 3:18 PM EDT Crys calling from [employer]. Advised of the message from Lily. She will pass information on to the patient. * Telephone Encounter - Vonda Woo LPN - 08/31/2024 2:39 PM EDT Spoke to [employer] and they were going to relay the message to Yeimy as she is out in the field right not. * Telephone Encounter - Lily Parham PA-C - 08/31/2024 1:36 PM EDT I can send something stronger It is for PT days only Likely will have to pay oop as she has not had ov and we cannot get auth approved Arthralgia, unspecified joint (Primary) - HYDROcodone-Acetaminophen 5-325 MG Oral Tablet; Take 1 Tablet by mouth every 6 hours as needed for Pain, Severe. On PT days only I have reviewed the patients controlled substance dispensing history in the Prescription Drug Monitoring Program in compliance with the [facility] regulations before prescribing a controlled substance. Last Tox Screen Results: No results found. However, due to the size of the patient record, not all encounters were searched.Please check Results Review for a complete set of results. Lily Parham PA-C 08/31/2024 1:38 PM * Telephone Encounter - Sofia Estrada OSA - 08/30/2024 1:47 PM EDT Berkley with [facility] calling stating patient is taking Tramadol 50mg 1tab q8hr, patient still rating pain 6 out of 10. Patient is taking medication on schedule. Asking if there is anything else to help control pain? Please advise? documented in this encounter Plan of Treatment Upcoming Encounters Date Type Department Care Team (Late st Contact Info) Description 09/13/2024 9:30 AM EDT [facility] [place] [address] [place] [address] Anne Alcocer PA-C [address] [place] [address] Barbara Butt, [facility] Associate [address] [place] [address] Scheduled Procedures Name Priority Associated Diagnoses Date/Ti me COLONOSCOPY FLEXIBLE PROXIMA L DIAGNOSTIC Recall Special screening for malignant neoplasms, colon Health Maintenance Due Date Last Done Comments Zoster Vaccines (2 of 3) 07/02/2014 05/07/2014 DXA Scan 03/21/2016 03/21/2014, 12/2007, 10/15/2008, Additional history exists *BISPHONATE OR OTHER ACCEPTABLE MEDICATION NEEDED FOR OSTEOPOROSIS (REFER TO SMARTSET #1146) 02/09/2017 Adult Wellness Visit 02/23/2020 02/22/2019 COVID-19 Vaccine ( season) 2024 11/10/2021, 01/21/2021, 12/31/2020 Influenza Vaccine (FLU shot) (#1) 2024 07/27/2023, 08/18/2022, 08/18/2022, Additional history exists CKD PHOS USE SMARTSET 96339 08/25/202408/14, 09/30/2022, 04/03/2020, Additional history exists Depression Monitoring 09/30/2024 09/30/2023 Albumin/Creatinine Ratio 01/06/202501/06/2 024, 11/02/2023, 08/18/2022, Additional history exists GFR 02/14/2025 08/16/2024, 02/12, 11/06/2023, Additional history exists CKD HGB USE SMARTSET 08838 08/16/202508/16, 08/16/2024, 02/27/2024, Additional history exists TSH 08/16/2025 08/16/2024, 02/12, 02/27/2024, Additional history exists DTap/Tdap Vaccines (3 - Td or Tdap) 05/15/2032 05/15/2022, 04/03/2015, 05/03/2008, Additional history exists Pneumococcal Vaccine: 65+ Years Completed 01/02/2016, 05/03/2008 VITAMIN D LEVEL ONCE IN A LIFETIME-USE SMARTSET# 70570 Completed 02/27/2024, 01/19/2023, 05/27/2022, Additional history exists HPV (Gardasil) Vaccine Aged Out No lo nger eligible based on patient's age to complete this topic Hepatitis B Vaccine Aged Out No longe r eligible based on patient's age to complete this topic MENINGOCOCCAL (MENACTRA/MENVEO) Aged Out No longer eligible based on patient's age to complete this topic documented as of this encounter Medical Devices Implanted Type Area Crab Butcher Device Identifier Shelf Expiration Date Model / Serial / Lot Lens Intraoc 22.0 - [id number] - [id number] Implanted:Qty: 1 on 01/15/2020 by Delta Johansen MD at OR [facility] Left: Eye [employer]CH [employer]OM[employer] 09/13/2024 [id number] / [id number] / Lens Intraoc 22.0 - [id number] - [id number] Implanted:Qty: 1 on 01/22/2020 by Delta Johansne MD at OR [facility] Right: Eye BAUSCH [employer] LOMB 02/12/2024 [id number] / [id number] / [id number] documented as of this encounter Visit Diagnoses Diagnosis Arthralgia, unspecified joint- Primary documented in this encounter Care Teams Aerodynamics Professor Relationship Specialty Start Date End Date Lily Parham PA-C [address] [facility] [place] [place] [address] PCP - General Physician Assembly Associate 07/20/24 documented as of this encounter
--- OUTSIDE RECORDS SUMMARY | 2024-09-03 19:55 | External Medical Summary | Summary of Care ---
Author Name Unknown Organization [facility] Address [address] [place] [address] Phone [phone] Care Team Providers Care Cattle Producers Name Role Phone Lily Parham PA-C Primary Care Provider [phone] Reason for Referral * Medication Prior Authorization - Closed Specialty Diagnoses / Procedures Referred By Sophy ruelas Referred To Contact Diagnoses Arthralgia, unspecified joint Lily Parham PA-C [address] [place] [address] Referral ID Status Reason Start Date Expiration Date Visits Re quested Visits Authorized [id number] Closed 999 999 Reason for Visit * Reason Onset Date Comments Advice 08/30/2024 Tramadol Encounter Details Date Type Department Care Team ([facility] st Contact Info) Description 08/30/2024 Telephone [facility] [address] [place] [address] Lily Parham PA-C [address], [place] [id number] Advice (Tramadol ) Allergies No known active [...] meds). 90 Tablet 1 4 Active Nystatin 171150 UNIT/GM External Powder (Nystop) Apply topically to affected area 3 times a day. Apply to abdominal folds 60 g 1 4 Active Pramipexole Dihydrochloride 0.25 MG Oral Tablet (Mirapex)Indication s:Restless legs syndrome TAKE 1 TABLET IN THE AFTERNOON AND 2 TABLETS AT BEDTIME 270 Tablet 3 4 Active Vitamin D (Ergocalciferol) 1.25 MG (92232 UT) Oral Capsule (Drisdol) TAKE 1 CAPSULE [...] mRNA, LNP-s, No Pre serve, 2-Dose Series ([employer]) 11/10/2021,01/21/2021,12/31/2020 Pneumococcal Conjugate Vacc, 13 Valent (Prevnar) [...] encounter Miscellaneous Notes * Telephone Encounter - Lily Parham PA-C - 08/31/2024 5:42 PM EDT I understand this I am handicapped by the law which limits prescription of narcotics without visits She is going to have to find a way to do a video visit I know she does not want to inconvenience anyone to come do a video with her, but there is absolutely no way to even consider regular pain meds without it. Lily Parham PA-C * Telephone Encounter - Nayely Bunch LPN - 08/31/2024 4:04 PM EDT patient aware Pt states she is not doing anymore PT because when working on stairs, it caused more pain in her knee. [facility] is not coming, until she feels she can work on stairs again. In the meantime she is doing home exercises herself. Pt indicates she is in constant pain in her knee. She will be out of tramadol tonight. * Telephone Encounter - Hailey Bridges LPN - 08/31/2024 3:18 PM EDT Crys calling from [facility]. Advised of the message from Lily. She will pass information on to the patient. * Telephone Encounter - Vonda Woo LPN - 08/31/2024 2:39 PM EDT Spoke to [employer] and they were going to relay the [...] Drug Monitoring Program in compliance with the [facility] regulations before prescribing a controlled substance. Last Tox Screen Results: No results found. However, due to the size of the patient record, not all encounters were searched.Please check Results Review for a complete set of results. Lily Parham PA-C 08/31/2024 1:38 PM * Telephone Encounter - Sofia Estrada OSA - 08/30/2024 1:47 PM EDT Berkley with [facility] calling stating patient is taking Tramadol 50mg 1tab q8hr, patient still rating pain 6 out of 10. Patient is taking medication on schedule. Asking if there is anything else to help control pain? Please advise? documented in this encounter Plan of Treatment Upcoming Encounters Date Type Department Care Team (Late st Contact Info) Description 09/13/2024 9:30 AM EDT Telemedicine [facility], [place] [address] [place] [address] Anne Alcocer PA-C [address] [place] [address] Barbara Butt, [facility] Chiropractic Physician [address] [place] [address] Scheduled Procedures Name Priority Associated Diagnoses Date/Ti [...] Additional history exists CKD PHOS USE SMARTSET 66475 08/25/202408/14, 09/30/2022, 04/03/2020, Additional history exists Depression Monitoring 09/30/2024 09/30/2023 Albumin/Creatinine Ratio 01/06/20252 024, 11/02/2023, 08/18/2022, Additional history exists GFR 02/14/2025 08/16/2024, 02/12, 11/06/2023, Additional history exists CKD HGB USE SMARTSET 48700 08/16/202508/16, 08/16/2024, 02/27/2024, Additional history exists TSH 08/16/2025 08/16/2024, 02/12, 02/27/2024, Additional history exists DTap/Tdap Vaccines (3 - Td or Tdap) 05/15/2032 05/15/2022, 04/03/2015, 05/03/2008, Additional history exists Pneumococcal Vaccine: 65+ Years Completed 01/02/2016, 05/03/2008 VITAMIN D LEVEL ONCE IN A LIFETIME-USE SMARTSET# 04750 Completed 02/27/2024, 01/19/2023, 05/27/2022, Additional history exists [...] this encounter Medical Devices Implanted Type Area Slab Installer Device Identifier Shelf Expiration Date Model / Serial / Lot Lens Intraoc 22.0 - [id number] - [id number] Implanted:Qty: 1 on 01/15/2020 by Delta Johansen MD at OR [facility] Left: Eye BAUSCH & LOMB 09/13/2024 [id number] / [id number] / Lens Intraoc 22.0 - [id number] - [id number] Implanted:Qty: 1 on 01/22/2020 by Delta Johansen MD at OR [facility] Right: Eye BAUSCH & LOMB 02/12/2024 [id number] / [id number] / [id number] documented as of this encounter Visit Diagnoses Diagnosis Arthralgia, unspecified joint- Primary documented in this encounter Care Teams Cattle Producers Relationship Specialty Start Date End Date Lily Parham PA-C [address] [facility] [place] [address] PCP - General Physician Chiropractic Physician 07/20/24 documented as of this encounter
--- OUTSIDE RECORDS SUMMARY | 2024-09-03 19:55 | External Medical Summary ---
Author Name Unknown Address Unknown Organization K01:[facility] [place] [address] [place] [address] Laboratory Report Ordering Provider Test Date Status PARISH COREY 08/16/2024 09:14:00 Final Observation Date Value Abnormality Reference (Units ) Status Vitamin B12 08/16/2024 09:14:00 [phone] (pg/mL) Final Performing Location [facility] - [address] [place] [address]
--- OUTSIDE RECORDS SUMMARY | 2024-09-03 19:55 | External Medical Summary | Summary of Care ---
Author Name Unknown Organization [facility] Address [address] [place] [address] Phone [phone] Care Team Providers Care Finishing Room Operator Name Role Phone Lily Parham PA-C Primary Care Provider [phone] Reason for Visit * Reason Onset Date Comments FYI 08/13/2024 Encounter Details Date Type Department Care Team (Late st Contact Info) Description 08/13/2024 Telephone [facility] [address] [place] [address] Lily Parham PA-C [address] [place] [address] FY Allergies No known active allergiesdocumented as of this encounter (statuses as of 08/22/2024) Medications Medication Sig Dispensed Refills Start Date End Date Status vitamin b 12 (CYANOCOBALAMIN) 1000 MCG TABS Take 1 Tablet by mouth in the morning. 07/15/2017 Active docusate sodium (COLACE) 100 MG Capsule Take 1 Capsule by mouth 2 times a day as needed for Constipation. Active clonazePAM (KLONOPIN) 1 MG TabletIndications:Res tless legs syndrome TAKE 1 TABLET PRIOR TO SLEEP, FOR PLMS And RLS 90 Tab 10/24/2018 Active Additional Information Patient not taking.Reported on 06/21/2024 Saccharomyces boulardii 250 MG Oral Capsule (Florastor)Indication s:Diarrhea, unspecified type Take 1 Capsule by mouth in the morning and 1 Capsule before bedtime. 60 Capsule 2 04/26/2023 Active Diclofenac Sodium 1 % External Gel (Voltaren Arthritis Pain)Indications:Arth ralgia, unspecified joint Apply topically to affected area 4 times a day as needed (pain). Apply to hand arthritis 300 g 1 10/24/2023 Active oxyCODONE HCl 5 MG Oral Tablet (Oxy IR)Indications:Arthri tis Take 1 Tablet by mouth every 4 hours as needed for Pain, Severe. 180 Tablet 10/28/2023 Active Additional Information Patient not taking.Reported on 06/21/2024 Amitriptyline HCl 25 MG Oral Tablet (Elavil)Indications:P ersistent insomnia,New daily persistent headache TAKE 1 TABLET EVERY NIGHT 1 HOUR BEFORE BEDTIME 90 Tablet 1 10/28/2023 Active Additional Information Patient not taking.Reported on 06/21/2024 LORazepam 0.5 MG Oral Tablet (Ativan)Indications:D iarrhea, unspecified type,Arthritis One tab 30 min before mri, repeat 15 min prior and at start 1 Tablet 11/09/2023 Active Additional Information Patient not taking.Reported on 12/16/2023 Potassium Chloride Kadie ER 20 MEQ Oral Tablet Extended Release Take 1 Tablet by mouth in the morning and 1 Tablet before bedtime. 120 Tablet 04/23/2024 Active Apixaban 5 MG Oral Tablet (Eliquis) Take 1 Tablet by mouth in the morning and 1 Tablet before bedtime. 180 Tablet 1 06/21/2024 Active busPIRone HCl 15 MG Oral Tablet (Buspar) Take 1 Tablet by mouth in the morning and 1 Tablet at noon and 1 Tablet before bedtime. 270 Tablet 1 06/21/2024 Active Carvedilol 12.5 MG Oral Tablet (Coreg) Take 1 Tablet by mouth in the morning and 1 Tablet before bedtime. with food. 180 Tablet 3 06/21/2024 Active Clotrimazole 1 % Vaginal CreamIndications:Vagi na itching Apply a pea sized dollop to vaginal entrance and labia at bedtime nightly 45 g 3 06/21/2024 Active Colestipol HCl 1 GM Oral Tablet (Colestid)Indications :Irritable bowel syndrome with diarrhea Take 2 Tablets by mouth in the morning and 2 Tablets before bedtime. Take extra table on days with diarrhea for max of 5 per day. 450 Tablet 3 06/21/2024 Active Diphenoxylate-Atropin e 2.5-0.025 MG Oral Tablet (Lomotil)Indications: Diarrhea, unspecified type Take 1 Tablet by mouth every 6 hours as needed for Diarrhea. 30 Tablet 1 06/21/2024 Active Ferrous Sulfate 325 (65 Fe) MG Oral Tablet (Feosol) Take 1 Tablet by mouth daily with breakfast. Take 1 tab daily 180 Tablet 1 06/21/2024 Active Gabapentin 400 MG Oral Capsule (Neurontin)Indication s:Arthralgia, unspecified joint Take 1 Capsule by mouth in the morning and 1 Capsule at noon and 1 Capsule before bedtime. 270 Capsule 1 06/21/2024 Active Levothyroxine Sodium 125 MCG Oral Tablet (Levoxyl)Indications: Other specified hypothyroidism Take 1 Tablet by mouth in the morning. (at least 30 min prior to breakfast or other meds). 90 Tablet 1 06/21/2024 Active Nystatin 874855 UNIT/GM External Powder (Nystop) Apply topically to affected area 3 times a day. Apply to abdominal folds 60 g 1 06/21/2024 Active Pramipexole Dihydrochloride 0.25 MG Oral Tablet (Mirapex)Indications: Restless legs syndrome TAKE 1 TABLET IN THE AFTERNOON AND 2 TABLETS AT BEDTIME 270 Tablet 3 06/21/2024 Active Vitamin D (Ergocalciferol) 1.25 MG (43061 UT) Oral Capsule (Drisdol) TAKE 1 CAPSULE ONCE WEEKLY 12 Capsule 1 06/21/2024 Active Bumetanide 1 MG Oral Tablet (Bumex) Take 1 Tablet by mouth in the morning and 1 Tablet before bedtime. 120 Tablet 3 06/21/2024 Active Bumetanide 1 MG Oral Tablet Take extra as directed by Nephrology for fluid overload 60 Tablet 3 06/21/2024 Active documented as of this encounter (statuses as of 08/22/2024) Active Problems Problem Noted Date Diagnosed Date [...] as of this encounter (statuses as of 08/22/2024) Resolved Problems Problem Noted Date Diagnosed Date [...] as of this encounter (statuses as of 08/22/2024) Immunizations Name Administration Dates Next Due COVID-19 mRNA, LNP-s, No Pre serve, 2-Dose Series ([employer]) 11/10/2021,01/21/2021,12/31/2020 Pneumococcal Conjugate Vacc, 13 Valent (Prevnar) [...] No 11/09/2023 Does the household have a [facility] source of income? (Household - for ages [...] encounter Miscellaneous Notes * Telephone Encounter - Chelly Cavazos LPN - 08/22/2024 2:55 PM EDT Called and spoke with patient and she is aware of information from Lily Parham. Patient is going to give the tramadol a try for a week or so and call back with an update. * Telephone Encounter - Lily Parham PA-C - 08/22/2024 10:38 AM EDT Rev with former pcp We are willing to do meds FOR PT DAYS ONLY but insurance may not cover without OV. Saw tramadol was sent yesterday - she should try that and let us know how that goes Lily Parham PA-C * Telephone Encounter - Terri Manzanares LPN - 08/21/2024 8:40 AM EDT Spoke with pt. She insists that she can not leave her home. Was asked if she had any family that could bring her. She stated she had two sons and they live in [place] and they would be willing to bring her if she schedules an appointment, but she doesn't want to put that on them. So pt said "never mind" I will just deal with it. This was advised against and that she should let her family help her. * Telephone Encounter - Lily Parham PA-C - 08/17/2024 5:09 PM EDT Can speak to my partners Insurance requires a med contract signed and and urine drug screen to cover medication so that may be part of this. They may not cover her to take the medication without this. I can investigate if home nursing can do a urine drug tox screen that fulfills insurance or this is all a moot point. Lily Parham PA-C * Telephone Encounter - Tashia Bunch OSA - 08/16/2024 3:27 PM EDT Talked with patient and she stated that she is not bel to leave the house and she also feliz not havea phone or computer to do the phone visit. Are there any other options? 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 Please explain to patient and see if we can get her an appt with one of the docs via telemed and they can write for med Lily Parham PA-C * Telephone Encounter - Terri Manzanares LPN - 08/14/2024 12:11 PM EDT Spoke with pt. She was very upset and stated that she has been unable to get out of the house sinceFeb of this year. Pt was doing PT but than injured her knee and has been unable to walk. Pt wants something for the pain so she can get out of the house to go to an appointment. Pt has x-rays done onher knee to see what could have happened to it. Pt states she had an appointment on 08/02/2024 via the medical center. I didn't see the appointment. She was wondering if any one in our office is willing to a home appointment to see her. 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 I am comfortable increasing her gabapentin Is pt willing to try this? Lily Parham PA-C * Telephone Encounter - Elza Lee LPN - 08/13/2024 1:28 PM EDT HH Concerns Yeimy RN, Calling from: [facility] Report/Concerns of: left knee pain Symptoms: 7 out of 10 Vitals: T 98.2 P 72 RR 18 BP 130/78 SP O2 96 room air Lung sounds clear Weight n/a Blood sugar n/a Narrative: Yeimy calling from [facility] . Patient has been having at home PT. The pain she is having is interfering with her PT. Tylenol is not helping at all. Pain is a 7 out of 10 Patient now has redmark in the middle of her knee. Approx. 2 x 2 cm. It is not open. Asking for something stronger than tylenol. Call back Yeimy with any advice or orders at [phone] Please fax new orders to [facility] * Telephone Encounter - Gladys Nieves OSA - 08/13/2024 1:22 PM EDT Reason for patient's call: Possible change to medication due to persistent knee pain. Caller was transferred to [facility] at the nurse line. documented in this encounter Plan of Treatment Upcoming Encounters Date Type Department Care Team (Late st Contact Info) Description 09/13/2024 9:30 AM EDT Telemedicine [facility], [place] [address] [place] [address] Anne Alcocer PA-C [address] [place] [address] Barbara Butt, [facility] Slab Off Mill Tender [address] [place] [address] Scheduled Procedures Name Priority Associated Diagnoses Date/Ti [...] Additional history exists CKD PHOS USE SMARTSET 38798 08/25/202408/14, 09/30/2022, 04/03/2020, Additional history exists Depression Monitoring 09/30/2024 09/30/2023 Albumin/Creatinine Ratio 01/06/202501/06/2 024, 11/02/2023, 08/18/2022, Additional history exists GFR 02/14/2025 08/16/2024, 02/12, 11/06/2023, Additional history exists CKD HGB USE SMARTSET 58324 08/16/202508/16, 08/16/2024, 02/27/2024, Additional history exists TSH 08/16/2025 08/16/2024, 02/12, 02/27/2024, Additional history exists DTap/Tdap Vaccines (3 - Td or Tdap) 05/15/2032 05/15/2022, 04/03/2015, 05/03/2008, Additional history exists Pneumococcal Vaccine: 65+ Years Completed 01/02/2016, 05/03/2008 VITAMIN D LEVEL ONCE IN A LIFETIME-USE SMARTSET# 61349 Completed 02/27/2024, 01/19/2023, 05/27/2022, Additional history exists [...] this encounter Medical Devices Implanted Type Area Coremaking Supervisor Device Identifier Shelf Expiration Date Model / Serial / Lot Lens Intraoc 22.0 - [id number] - [id number] Implanted:Qty: 1 on 01/15/2020 by Delta Johansen MD at OR [facility] Left: Eye BAUSCH [employer] LOMB 09/13/2024 [id number] / [id number] / Lens Intraoc 22.0 - [id number] - [id number] Implanted:Qty: 1 on 01/22/2020 by Delta Johansen MD at OR [facility] Right: Eye BAUSCH & LOMB 02/12/2024 [id number] / [id number] / [id number] documented as of this encounter Care Teams Finishing Room Operator Relationship Specialty Start Date End Date Lily Parham PA-C [address] [facility] [place] [id number] PCP - General Physician Slab Off Mill Tender 07/20/24 documented as of this encounter
--- OUTSIDE RECORDS SUMMARY | 2024-09-03 19:55 | External Medical Summary | Summary of Care ---
Author Name Unknown Organization [facility] Address [address] [place] [address] Phone [phone] Care Team Providers Care Manager Highway Name Role Phone Lily Parham PA-C Primary Care Provider [phone] Reason for Visit * Reason Onset Date Comments Test Results 08/21/2024 Encounter Details Date Type Department Care Team ([facility] st Contact Info) Description 08/21/2024 Telephone [facility], [place] [address] [place] [address] Anne Alcocer PA-C [address] [place] [address] Test Results Allergies No known active allergiesdocumented as of this encounter (statuses as of 08/21/2024) Medications Medication Sig Dispensed Refills Start Date [...] meds). 90 Tablet 1 06/21/2024 Active Nystatin 423928 UNIT/GM External Powder (Nystop) Apply topically to affected area 3 times a day. Apply to abdominal folds 60 g 1 06/21/2024 Active Pramipexole Dihydrochloride 0.25 MG Oral Tablet (Mirapex)Indications: Restless legs syndrome TAKE 1 TABLET IN THE AFTERNOON AND 2 TABLETS AT BEDTIME 270 Tablet 3 06/21/2024 Active Vitamin D (Ergocalciferol) 1.25 MG (44425 UT) Oral Capsule (Drisdol) TAKE 1 CAPSULE ONCE WEEKLY 12 Capsule 1 06/21/2024 Active Bumetanide 1 MG Oral Tablet (Bumex) Take 1 Tablet by mouth in the morning and 1 Tablet before bedtime. 120 Tablet 3 06/21/2024 Active Bumetanide 1 MG Oral Tablet Take extra as directed by Nephrology for fluid overload 60 Tablet 3 06/21/2024 Active traMADol HCl 50 MG Oral Tablet (Ultram) Take 1 Tablet by mouth every 8 hours as needed for Pain, Moderate. 30 Tablet 08/21/2024 Active documented as of this encounter (statuses as of 08/21/2024) Active Problems Problem Noted Date Diagnosed Date [...] as of this encounter (statuses as of 08/21/2024) Resolved Problems Problem Noted Date Diagnosed Date [...] as of this encounter (statuses as of 08/21/2024) Immunizations Name Administration Dates Next Due COVID-19 mRNA, LNP-s, No Pre serve, 2-Dose Series ([employer]) 11/10/2021,01/21/2021,12/31/2020 Pneumococcal Conjugate Vacc, 13 Valent (Prevnar) 01/02/2016 Pneumococcal Polysaccharide PPV23 (Pneumovax) 05/03/2008 Seasonal Influenza Vac., MDV , IM, 0.5 mL (Fluzone) 11/11/2014,10/24/2009(Deferred: Patient Refused) Seasonal Influenza Virus Vac cine, Unspecified Formulation [...] encounter Miscellaneous Notes * Telephone Encounter - Anne Alcocer PA-C - 08/21/2024 1:41 PM EDT Called to review recent lab results. Kidney function is improved. Patient continues to have knee pain. It was aggravated after doing a couple stairs with PT and has been for about a month. She feels pain to the superior portion of the anterior knee. She has tried numerous topicals. Recent radiographs were unremarkable. She is unable to get out of the home to be evaluated by orthopedics. She is unable to get in to see the PCP as she taken prn oxycodone and is currently out. Advised I can send her a Rx for tramadol. She needs to try to coordinate an appointment with her son and orthopedics to be further evaluated. Jason could you please fax her most recent labs to Nephrology at [phone] documented in this encounter Plan of Treatment Upcoming Encounters Date Type Department Care Team (Late st Contact Info) Description 09/13/2024 9:30 AM EDT Telemedicine [facility], [place] [address] [place] [address] Anne Alcocer PA-C [address] [place] [address] Barbara Butt, [facility] Filament Cutter [address] [place] [address] Scheduled Procedures Name Priority Associated Diagnoses Date/Ti [...] Additional history exists CKD PHOS USE SMARTSET 76418 08/25/202408/14, 09/30/2022, 04/03/2020, Additional history exists Depression Monitoring 09/30/2024 09/30/2023 Albumin/Creatinine Ratio 01/06/2025 024, 11/02/2023, 08/18/2022, Additional history exists GFR 02/14/2025 08/16/2024, 02/12, 11/06/2023, Additional history exists CKD HGB USE SMARTSET 75652 08/16/202508/16, 08/16/2024, 02/27/2024, Additional history exists TSH 08/16/2025 08/16/2024, 02/12, 02/27/2024, Additional history exists DTap/Tdap Vaccines (3 - Td or Tdap) 05/15/2032 05/15/2022, 04/03/2015, 05/03/2008, Additional history exists Pneumococcal Vaccine: 65+ Years Completed 01/02/2016, 05/03/2008 VITAMIN D LEVEL ONCE IN A LIFETIME-USE SMARTSET# 17536 Completed 02/27/2024, 01/19/2023, 05/27/2022, Additional history exists [...] this encounter Medical Devices Implanted Type Area Concrete Boom Pump Operator Device Identifier Shelf Expiration Date Model / Serial / Lot Lens Intraoc 22.0 - [id number] - [id number] Implanted:Qty: 1 on 01/15/2020 by Delta Johansen MD at OR [facility] Left: Eye [employer]CH [employer] LOMB 09/13/2024 [id number] / [id number] / Lens Intraoc 22.0 - [id number] - [id number] Implanted:Qty: 1 on 01/22/2020 by Delta Johansen MD at [facility] Right: Eye BAUSCH & LOMB 02/12/2024 [id number] / [id number] / [id number] documented as of this encounter Care Teams Manager Highway Relationship Specialty Start Date End Date Lily Parham PA-C [address] [address] PCP - General Physician Filament Cutter 07/20/24 documented as of this encounter
--- OUTSIDE RECORDS SUMMARY | 2024-09-03 19:55 | External Medical Summary | Summary of Care ---
Author Name Unknown Organization [facility] Address [address] [place] [address] Phone [phone] Care Team Providers Care Centerless Grinder Set Up Operator Name Role Phone Lily Parham PA-C Primary Care Provider [phone] Reason for Visit * Reason Onset Date Comments FYI 08/13/2024 Encounter Details Date Type Department Care Team (Late st Contact Info) Description 08/13/2024 Telephone [facility] [address] [place] [address] Lily Parham PA-C [address] [place] [address] FY Allergies No known active [...] meds). 90 Tablet 1 06/21/2024 Active Nystatin 538980 UNIT/GM External Powder (Nystop) Apply topically to affected area 3 times a day. Apply to abdominal folds 60 g 1 06/21/2024 Active Pramipexole Dihydrochloride 0.25 MG Oral Tablet (Mirapex)Indications: Restless legs syndrome TAKE 1 TABLET IN THE AFTERNOON AND 2 TABLETS AT BEDTIME 270 Tablet 3 06/21/2024 Active Vitamin D (Ergocalciferol) 1.25 MG (50518 UT) Oral Capsule (Drisdol) TAKE 1 CAPSULE [...] mRNA, LNP-s, No Pre serve, 2-Dose Series ([employer]) 11/10/2021,01/21/2021,12/31/2020 Pneumococcal Conjugate Vacc, 13 Valent (Prevnar) [...] No 11/09/2023 Does the household have a [facility] source of income? (Household - for ages [...] had two sons and they live in [place] and they would be willing to bring [...] she had an appointment on 08/02/2024 via [facility]. I didn't see the appointment. She was [...] EDT HH Concerns Yeimy RN, Calling from: [employer] Report/Concerns of: left knee pain Symptoms: 7 out of 10 Vitals: T 98.2 P 72 RR 18 BP 130/78 SP O2 96 room air Lung sounds clear Weight n/a Blood sugar n/a Narrative: Yeimy calling from [employer] . Patient has been having at home [...] Yeimy with any advice or orders at [phone] Please fax new orders to [facility] * Telephone Encounter - Gladys Nieves OSA - 08/13/2024 1:22 PM EDT Reason for patient's call: Possible change to medication due to persistent knee pain. Caller was transferred to Viviana at the nurse line. documented in this encounter Plan of Treatment Upcoming Encounters Date Type Department Care Team (Late st Contact Info) Description 09/13/2024 9:[address] [facility] [place] [place] [address] [place] [address] Anne Alcocer PA-C [address] [facility] [place] [id number] Barbara Butt, Community Health Patrol Officer [address] [place] [address] Scheduled Procedures Name Priority Associated Diagnoses Date/Ti [...] Additional history exists CKD PHOS USE SMARTSET 57640 08/25/202408/14, 09/30/2022, 04/03/2020, Additional history exists Depression Monitoring 09/30/2024 09/30/2023 Albumin/Creatinine Ratio 01/06/2025 024, 11/02/2023, 08/18/2022, Additional history exists GFR 02/14/2025 08/16/2024, 02/12, 11/06/2023, Additional history exists CKD HGB USE SMARTSET 80559 08/16/202508/16, 08/16/2024, 02/27/2024, Additional history exists TSH 08/16/2025 08/16/2024, 02/12, 02/27/2024, Additional history exists DTap/Tdap Vaccines (3 - Td or Tdap) 05/15/2032 05/15/2022, 04/03/2015, 05/03/2008, Additional history exists Pneumococcal Vaccine: 65+ Years Completed 01/02/2016, 05/03/2008 VITAMIN D LEVEL ONCE IN A LIFETIME-USE SMARTSET# 37875 Completed 02/27/2024, 01/19/2023, 05/27/2022, Additional history exists [...] this encounter Medical Devices Implanted Type Area Cold Meat Cook Device Identifier Shelf Expiration Date Model / Serial / Lot Lens Intraoc 22.0 - [id number] - [id number] Implanted:Qty: 1 on 01/15/2020 by Delta Johansen MD at OR [facility] Left: Eye BAUSCH & LOMB 09/13/2024 [id number] / [id number] / Lens Intraoc 22.0 - [id number] - [id number] Implanted:Qty: 1 on 01/22/2020 by Delta Johansen MD at OR [facility] Right: Eye BAUSCH & LOMB 02/12/2024 [id number] / [id number] / [id number] documented as of this encounter Care Teams Centerless Grinder Set Up Operator Relationship Specialty Start Date End Date Lily Parham PA-C [address] [facility] [place] [address] PCP - General Physician Patrol Officer 07/20/24 documented as of this encounter
--- OUTSIDE RECORDS SUMMARY | 2024-09-03 19:55 | External Medical Summary | Summary of Care ---
Author Name Unknown Organization [facility] Address [address] [place] [address] Phone [phone] Care Team Providers Care Primer Charger Name Role Phone Lily Parham PA-C Primary Care Provider [phone] Reason for Referral * Medication Prior Authorization - Closed Specialty Diagnoses / Procedures Referred By Sophy ruelas Referred To Contact Diagnoses Arthralgia, unspecified joint Lily Parham PA-C [address] [place] [address] Referral ID Status Reason Start Date Expiration Date Visits Re quested Visits Authorized [id number] Closed 999 999 Reason for Visit * Reason Onset Date Comments Advice 08/30/2024 Tramadol Encounter Details Date Type Department Care Team ([facility] st Contact Info) Description 08/30/2024 Telephone [facility] [address] [place] [address] Lily Parham PA-C [address] [place], [place] [phone] Advice (Tramadol ) Allergies No known active [...] meds). 90 Tablet 1 4 Active Nystatin 099023 UNIT/GM External Powder (Nystop) Apply topically to affected area 3 times a day. Apply to abdominal folds 60 g 1 4 Active Pramipexole Dihydrochloride 0.25 MG Oral Tablet (Mirapex)Indication s:Restless legs syndrome TAKE 1 TABLET IN THE AFTERNOON AND 2 TABLETS AT BEDTIME 270 Tablet 3 4 Active Vitamin D (Ergocalciferol) 1.25 MG (63811 UT) Oral Capsule (Drisdol) TAKE 1 CAPSULE [...] mRNA, LNP-s, No Pre serve, 2-Dose Series ([employer]) 11/10/2021,01/21/2021,12/31/2020 Pneumococcal Conjugate Vacc, 13 Valent [...] for ages 0-17 years) Not on file 12 / Food Insecurity Answer Date Recorded Do you [...] encounter Miscellaneous Notes * Telephone Encounter - Hailey Bridges LPN - 08/31/2024 3:18 PM EDT Crys calling from [employer]. Advised of the message from Lily. She will pass information on to the patient. * Telephone Encounter - Vonda Woo LPN - 08/31/2024 2:39 PM EDT Spoke to [employer] and they were going to relay the [...] Drug Monitoring Program in compliance with the [place] regulations before prescribing a controlled substance. Last [...] Info) Description 09/13/2024 9:30 AM EDT Telemedicine [facility] [place] [address] [place] [address] Anne Alcocer PA-C [address] [place] [address] Barbara Butt, Community Health Correction Lieutenant [address] [place] [address] Scheduled Procedures Name Priority Associated Diagnoses Date/Ti me COLONOSCOPY FLEXIBLE PROXIMA L DIAGNOSTIC Recall Special screening for malignant neoplasms, colon Health Maintenance Due Date Last Done Comments Zoster Vaccines (2 of 3) 07/02/2014 05/07/2014 DXA Scan 03/21/2016 03/21/2014, 1212/2007, 10/15/2008, Additional history exists *BISPHONATE OR OTHER ACCEPTABLE MEDICATION NEEDED FOR OSTEOPOROSIS (REFER TO SMARTSET #1146) 02/09/2017 Adult Wellness Visit 02/23/2020 02/22/2019 COVID-19 Vaccine ( season) 2024 11/10/2021, 01/21/2021, 12/31/2020 Influenza Vaccine (FLU shot) (#1) 2024 07/27/2023, 08/18/2022, 08/18/2022, Additional history exists CKD PHOS USE SMARTSET 09174 08/25/202408/14, 09/30/2022, 04/03/2020, Additional history exists Depression Monitoring 09/30/2024 09/30/2023 Albumin/Creatinine Ratio 01/06/202501/06/ 024, 11/02/2023, 08/18/2022, Additional history exists GFR 02/14/2025 08/16/2024, 02/12, 11/06/2023, Additional history exists CKD HGB USE SMARTSET 04106 08/16/202508/16, 08/16/2024, 02/27/2024, Additional history exists TSH 08/16/2025 08/16/2024, 02/12, 02/27/2024, Additional history exists DTap/Tdap Vaccines (3 - Td or Tdap) 05/15/2032 05/15/2022, 04/03/2015, 05/03/2008, Additional history exists Pneumococcal Vaccine: 65+ Years Completed 01/02/2016, 05/03/2008 VITAMIN D LEVEL ONCE IN A LIFETIME-USE SMARTSET# 76830 Completed 02/27/2024, 01/19/2023, 05/27/2022, Additional history exists [...] this encounter Medical Devices Implanted Type Area Gymnastics Instructor Device Identifier Shelf Expiration Date Model / Serial / Lot Lens Intraoc 22.0 - [id number] - [id number] Implanted:Qty: 1 on 01/15/2020 by Delta Johansen MD at OR [facility] Left: Eye BAUSCH & LOMB 09/13/2024 [id number] / [id number] / Lens Intraoc 22.0 - [id number] - [id number] Implanted:Qty: 1 on 01/22/2020 by Delta Johansen MD at OR [facility] Right: Eye BAUSCH & LOMB 02/12/2024 [id number] / [id number] / [id number] documented as of this encounter Visit Diagnoses Diagnosis Arthralgia, unspecified joint- Primary documented in this encounter Care Teams Primer Charger Relationship Specialty Start Date End Date Lily Parham PA-C [address] [facility] [place] [address] PCP - General Physician Correction Lieutenant 07/20/24 documented as of this encounter
--- OUTSIDE RECORDS SUMMARY | 2024-09-03 19:55 | External Medical Summary ---
Author Name Unknown Address Unknown Organization [id number]:LABORATORY [facility] [address] [place] [address] Laboratory Report Ordering Provider Test Date Status PARISH COREY 08/16/2024 09:14:00 Final Observation Date Value Abnormality Reference (Units ) Status BUN 08/16/2024 09:14:00 17 6-20 (mg/dL) Final Creatinine 08/16/2024 09:14:00 0.9 0.5-1.0 (mg/dL) Final Glomerular filtration rate/1.73 sq M.predicted [Volume Rate/Area] in Serum, Plasma or Blood by Creatinine-based formula (CKD-EPI) 08/16/2024 09:14:00 66 >=60 (mL/min) Final eGFR is calculated based on the CKD-EPI 2020 equation. Sodium 08/16/2024 09:14:00 141 135-146 (m mol/L) Final Potassium 08/16/2024 09:14:00 4.3 3.5-5.1 (m mol/L) Final Cl 08/16/2024 09:14:00 105 98-107 (mm ol/L) Final CO2 08/16/2024 09:14:00 26 22-32 (mmo l/L) Final Anion gap 08/16/2024 09:14:00 10 7-15 (mmol /L) Final Glucose 08/16/2024 09:14:00 99 70-120 (mg /dL) Final Albumin 08/16/2024 09:14:00 3.9 3.8-5.0 (g /dL) Final AST (Aspartate aminotransferase) 08/16/2024 09:14:00 16 10-35 (U/L) Fin al Alk Phos 08/16/2024 09:14:00 187 Above high normal 35 -130 (U/L) Final Bilirubin, Total 08/16/2024 09:14:00 0.3 <=1 .2 (mg/dL) Final Calcium 08/16/2024 09:14:00 9.7 8.4-10.2 ( mg/dL) Final Protein 08/16/2024 09:14:00 6.5 6.0-8.3 (g /dL) Final ALT (Alanine aminotransferase) 08/16/2024 09:14:00 11 10-35 (U/L) Kareem montenegro Performing Location LABORATORY [place] [address] [place] [address]
--- OUTSIDE RECORDS SUMMARY | 2024-09-03 19:55 | External Medical Summary ---
Author Name Unknown Address Unknown Organization [id number]:[facility]ATORY [facility] [place] - [address] [place] [address] Laboratory Report Ordering Provider Test Date Status PARISH COREY 08/16/2024 09:14:00 Final Observation Date Value Abnormality Reference (Units ) Status Iron 08/16/2024 09:14:00 77 33-151 (ug /dL) Final Iron-binding capacity 08/16/2024 09:14:00 307 250-425 (ug/dL) Final Transferrin Sat % 08/16/2024 09:14:00 25 15 -55 (%) Final Performing Location LABORATORY C - [address] [place] [address]
--- OUTSIDE RECORDS SUMMARY | 2024-09-03 19:55 | External Medical Summary | Summary of Care ---
Author Name Unknown Organization [facility] Address [address] [place] [address] Phone [phone] Care Team Providers Care Protective Signal Installer Helper Name Role Phone Lily Parham PA-C Primary Care Provider [phone] Reason for Visit * Reason Onset Date Comments FYI 08/13/2024 Encounter Details Date Type Department Care Team (Late st Contact Info) Description 08/13/2024 Telephone [facility] [address] [place] [address] Lily Parham PA-C [address] [place] [address] FY Allergies No known active [...] meds). 90 Tablet 1 06/21/2024 Active Nystatin 805169 UNIT/GM External Powder (Nystop) Apply topically to affected area 3 times a day. Apply to abdominal folds 60 g 1 06/21/2024 Active Pramipexole Dihydrochloride 0.25 MG Oral Tablet (Mirapex)Indications: Restless legs syndrome TAKE 1 TABLET IN THE AFTERNOON AND 2 TABLETS AT BEDTIME 270 Tablet 3 06/21/2024 Active Vitamin D (Ergocalciferol) 1.25 MG (77716 UT) Oral Capsule (Drisdol) TAKE 1 CAPSULE [...] mRNA, LNP-s, No Pre serve, 2-Dose Series ([email or web address]) 11/10/2021,01/21/2021,12/31/2020 Pneumococcal Conjugate Vacc, 13 Valent (Prevnar) [...] 11/09/2023 Does the household have a re lar source of income? (Household - for ages [...] encounter Miscellaneous Notes * Telephone Encounter - Terri Manzanares LPN - 08/21/2024 8:40 AM EDT Spoke with pt. She insists that she can not leave her home. Was asked if she had any family that could bring her. She stated she had two sons and they live in [place] and they would be willing to bring [...] she had an appointment on 08/02/2024 via [facility]. I didn't see the appointment. She was [...] 08/13/2024 1:28 PM EDT HH Concerns Yeimy ALONZO, Calling from: [employer] Report/Concerns of: left knee pain Symptoms: 7 out of 10 Vitals: T 98.2 P 72 RR 18 BP 130/78 SP O2 96 room air Lung sounds clear Weight n/a Blood sugar n/a Narrative: Yeimy calling from [employer] . Patient has been having at home [...] Yeimy with any advice or orders at [phone] Please fax new orders to [facility] * Telephone Encounter - Gladys Nieves OSA - 08/13/2024 1:22 PM EDT Reason for patient's call: Possible change to medication due to persistent knee pain. Caller was transferred to Emily Spangler at the nurse line. documented in this encounter Plan of Treatment Upcoming Encounters Date Type Department Care Team (Late st Contact Info) Description 09/13/2024 9:30 AM EDT Telemedicine [facility] [address] [place] [address] Anne Alcocer PA-C [address] [place], [place] [phone] Barbara Butt, Community Health Diesel Truck Driver [address] [place] [address] Scheduled Procedures Name Priority Associated Diagnoses Date/Ti [...] Additional history exists CKD PHOS USE SMARTSET 26338 08/25/202408/14, 09/30/2022, 04/03/2020, Additional history exists Depression Monitoring 09/30/2024 09/30/2023 Albumin/Creatinine Ratio 01/06/2025 024, 11/02/2023, 08/18/2022, Additional history exists GFR 02/14/2025 08/16/2024, 02/12, 11/06/2023, Additional history exists CKD HGB USE SMARTSET 47772 08/16/202508/16, 08/16/2024, 02/27/2024, Additional history exists TSH 08/16/2025 08/16/2024, 02/12, 02/27/2024, Additional history exists DTap/Tdap Vaccines (3 - Td or Tdap) 05/15/2032 05/15/2022, 04/03/2015, 05/03/2008, Additional history exists Pneumococcal Vaccine: 65+ Years Completed 01/02/2016, 05/03/2008 VITAMIN D LEVEL ONCE IN A LIFETIME-USE SMARTSET# 71187 Completed 02/27/2024, 01/19/2023, 05/27/2022, Additional history exists [...] this encounter Medical Devices Implanted Type Area Machine Maintenance Mechanic Device Identifier Shelf Expiration Date Model / Serial / Lot Lens Intraoc 22.0 - [id number] - [id number] Implanted:Qty: 1 on 01/15/2020 by Delta Johansen MD at OR [facility] Left: Eye BAUSCH & LOMB 09/13/2024 [id number] / [id number] / Lens Intraoc 22.0 - [id number] - [id number] Implanted:Qty: 1 on 01/22/2020 by Delta Johansen MD at OR [facility] Right: Eye BAUSCH & LOMB 02/12/2024 [id number] / [id number] / [id number] documented as of this encounter Care Teams Protective Signal Installer Helper Relationship Specialty Start Date End Date Lily Parham PA-C [address] [place] [address] PCP - General Physician Diesel Truck Driver 07/20/24 documented as of this encounter
--- OUTSIDE RECORDS SUMMARY | 2024-09-03 19:55 | External Medical Summary ---
Author Name Unknown Address Unknown Organization K01:[facility]ATORY [facility] [place] - [address] [place] [address] Laboratory Report Ordering Provider Test Date Status LEORAPARISH 08/16/2024 09:14:00 Final Observation Date Value Abnormality Reference (Units ) Status Ferritin 08/16/2024 09:14:00 305 Above high normal 13 -150 (ng/mL) Final Postmenopausal women have hi gher ferritin levels than pre-menopausal women. The above reference interval is based on pre-menopausal women. Performing Location LAB[facility]ATORY [facility] [place] - [address] [place] [address]
--- OUTSIDE RECORDS SUMMARY | 2024-09-03 19:55 | External Medical Summary ---
Author Name Unknown Address Unknown Organization K01:[facility] [place] [address] [place] [address] Laboratory Report Ordering Provider Test Date Status PARISH COREY 08/16/2024 09:14:00 Final Observation Date Value Abnormality Reference (Units ) Status TSH 08/16/2024 09:14:00 3.10 0.27-4.20 (uIU/mL) Final Performing Location LABORATORY [facility] - [address] [place] [address]
--- OUTSIDE RECORDS SUMMARY | 2024-09-03 19:55 | External Medical Summary ---
Author Name Unknown Address Unknown Organization K01:LABORATORY [facility] [place] - [address] [place] [address] Laboratory Report Ordering Provider Test Date Status PARISH COREY 08/16/2024 09:14:00 Final Observation Date Value Abnormality Reference (Units ) Status Magnesium 08/16/2024 09:14:00 1.8 1.5-2.6 (m g/dL) Final Performing Location LABORATORY [facility] - [address] [place] [address]
--- OUTSIDE RECORDS SUMMARY | 2024-09-03 19:55 | External Medical Summary | Summary of Care ---
Author Name Unknown Organization [facility] Address [address] [place] [address] Phone [phone] Care Team Providers Care Edger Runner Name Role Phone Lily Parham PA-C Primary Care Provider [phone] Reason for Visit * Reason Onset Date Comments Medication Refill 05/25/2024 Encounter Details Date Type Department Care Team (Late st Contact Info) Description 05/25/2024 Refill Care Coordination and Integration [address] [place], [place] [id number] Barbara Ambrocio, RN [address] [place], [place] [id number] Arthritis Allergies No known active allergiesdocumented as of this encounter (statuses as of 08/27/2024) Medications Medication Sig Dispensed Refills Start Date End Date Status vitamin b 12 (CYANOCOBALAMIN) 1000 MCG TABS Take 1 Tablet by mouth in the morning. 7 Active docusate sodium (COLACE) 100 MG Capsule Take 1 Capsule by mouth 2 times a day as needed for Constipation. Active clonazePAM (KLONOPIN) 1 MG TabletIndications:Re stless legs syndrome TAKE 1 TABLET PRIOR TO SLEEP, FOR PLMS And RLS 90 Tab 8 Active Additional Information Patient not taking.Reported on 06/21/2024 Saccharomyces boulardii 250 MG Oral Capsule (Florastor)Indicatio ns:Diarrhea, unspecified type Take 1 Capsule by mouth in the morning and 1 Capsule before bedtime. 60 Capsule 2 3 Active Diclofenac Sodium 1 % External Gel (Voltaren Arthritis Pain)Indications:Art hralgia, unspecified joint Apply topically to affected area 4 times a day as needed (pain). Apply to hand arthritis 300 g 1 3 Active oxyCODONE HCl 5 MG Oral Tablet (Oxy IR)Indications:Arthr itis Take 1 Tablet by mouth every 4 hours as needed for Pain, Severe. 180 Tablet 3 Active Additional Information Patient not taking.Reported on 06/21/2024 Amitriptyline HCl 25 MG Oral Tablet (Elavil)Indications: Persistent insomnia,New daily persistent headache TAKE 1 TABLET EVERY NIGHT 1 HOUR BEFORE BEDTIME 90 Tablet 1 3 Active Additional Information Patient not taking.Reported on 06/21/2024 LORazepam 0.5 MG Oral Tablet (Ativan)Indications: Diarrhea, unspecified type,Arthritis One tab 30 min before mri, repeat 15 min prior and at start 1 Tablet 3 Active Additional Information Patient not taking.Reported on 12/16/2023 Potassium Chloride Kadie ER 20 MEQ Oral Tablet Extended Release Take 1 Tablet by mouth in the morning and 1 Tablet before bedtime. 120 Tablet 4 Active ferrous sulfate (FEOSOL) 325 (65 FE) MG Tablet Take 1 tab twice per day 180 Tab 1 0 06/21/20 24 Discontinue d(Refill) Bumetanide 1 MG Oral Tablet (Bumex) Take 1 Tablet by mouth in the morning and 1 Tablet before bedtime. 06/21/20 24 Discontinue d(Refill) Carvedilol 12.5 MG Oral Tablet (Coreg) Take 1 Tablet by mouth in the morning and 1 Tablet before bedtime. with food. 180 Tablet 3 4 06/21/20 24 Discontinue d(Refill) busPIRone HCl 15 MG Oral Tablet (Buspar) Take 1 Tablet by mouth in the morning and 1 Tablet at noon and 1 Tablet before bedtime. 270 Tablet 1 4 06/21/20 24 Discontinue d(Refill) Gabapentin 400 MG Oral Capsule (Neurontin)Indicatio ns:Arthralgia, unspecified joint Take 1 Capsule by mouth in the morning and 1 Capsule at noon and 1 Capsule before bedtime. 270 Capsule 1 4 06/21/20 24 Discontinue d(Refill) Colestipol HCl 1 GM Oral Tablet (Colestid)Indication s:Irritable bowel syndrome with diarrhea Take 2 Tablets by mouth in the morning and 2 Tablets before bedtime. Take extra table on days with diarrhea for max of 5 per day. 450 Tablet 3 4 06/21/20 24 Discontinue d(Refill) Apixaban 5 MG Oral Tablet (Eliquis) Take 1 Tablet by mouth in the morning and 1 Tablet before bedtime. 180 Tablet 1 4 06/21/20 24 Discontinue d(Refill) Levothyroxine Sodium 125 MCG Oral Tablet (Levoxyl)Indications :Other specified hypothyroidism Take 1 Tablet by mouth in the morning. (at least 30 min prior to breakfast or other meds). 90 Tablet 1 4 06/21/20 24 Discontinue d(Refill) Clotrimazole 1 % Vaginal CreamIndications:Vag luisa itching Apply a pea sized dollop to vaginal entrance and labia at bedtime nightly 45 g 3 4 06/21/20 24 Discontinue d(Refill) Nystatin 941101 UNIT/GM External Powder (Nystop) Apply topically to affected area 3 times a day. Apply to abdominal folds 60 g 1 4 06/21/20 24 Discontinue d(Refill) Pramipexole Dihydrochloride 0.25 MG Oral Tablet (Mirapex)Indications :Restless legs syndrome TAKE 1 TABLET IN THE AFTERNOON AND 2 TABLETS AT BEDTIME 270 Tablet 3 4 06/21/20 24 Discontinue d(Refill) Diphenoxylate-Atropi ne 2.5-0.025 MG Oral Tablet (Lomotil)Indications :Diarrhea, unspecified type Take 1 Tablet by mouth every 6 hours as needed for Diarrhea. 30 Tablet 1 4 06/21/20 24 Discontinue d(Refill) Potassium Chloride Kadie ER 20 MEQ Oral Tablet Extended Release Take 1 Tablet by mouth in the morning and 1 Tablet before bedtime. 180 Tablet 3 4 07/22/20 24 Vitamin D (Ergocalciferol) 1.25 MG (50557 UT) Oral Capsule (Drisdol) TAKE 1 CAPSULE ONCE WEEKLY 12 Capsule 1 07/12/202 4 06/21/20 24 Discontinue d(Refill) documented as of this encounter (statuses as of 08/27/2024) Active Problems Problem Noted Date Diagnosed Date [...] as of this encounter (statuses as of 08/27/2024) Resolved Problems Problem Noted Date Diagnosed Date [...] as of this encounter (statuses as of 08/27/2024) Immunizations Name Administration Dates Next Due COVID-19 [...] encounter Miscellaneous Notes * Telephone Encounter - Tristan Conde MD - 05/25/2024 5:05 PM EDTRefused Prescriptions: Disp Refills oxyCODONE HCl 5 MG Oral Tablet (Oxy IR) 180 Ta*0 Sig: Take 1 Tablet by mouth every 4 hours as needed for Pain, Severe. Refused By: LEORA ALCOCER Reason for Refusal: Managed by another physician * Telephone Encounter - Barbara Ambrocio RN - 05/25/2024 10:44 AM EDT Pt called in to request refill of oxycodone. Has been seeing PA-C for telemed appointments. Did you pend patient's preferred pharmacy and medication before forwarding?yes Pharmacy: [facility] SAMY MENG Pending Prescriptions: Disp Refills oxyCODONE HCl 5 MG Oral Tablet (Oxy IR) 180 Ta*0 Sig: Take 1 Tablet by mouth every 4 hours as needed for Pain, Severe. Last Visit: Visit date not found (in office), Visit date not found (telemedicine) Next Visit: Visit date not found If no future appointments scheduled, and last appointment is greater than a year ago, please schedule patient for a follow-up appointment Last date the medication was ordered: 10/28/2023 Is this request for a controlled substance?Yes, What was the last refill date 10/28/2023 w/ quantity 180 and dosage 5mg and Urine Drug Screen Not completed Urine Drug Screen:No results found. However, due to the size of the patient record, not all encounters were searched. Please check Results Review for a complete set of results. Patient Phone Numbers Labs: Lab Results Component Value Date/Time CREAT 1.1 (H) 02/27/2024 08:36 AM CREAT 0.82 11/06/2023 07:57 AM CREAT 1.2 (H) 08/26/2020 02:28 PM POTASSIUM 4.7 02/27/2024 08:36 AM POTASSIUM 4.7 11/06/2023 07:57 AM POTASSIUM 4.9 08/26/2020 02:28 PM TSH 1.28 02/27/2024 08:36 AM TSH 1.27 02/27/2024 08:36 AM TSH 3.863 01/11/2022 12:00 AM TSH 1.37 07/17/2020 11:59 AM LDLCALC 76 09/28/2019 03:04 PM LDLDIRECT 77 08/18/2022 10:13 AM LDLDIRECT NOT APPLICABLE 09/28/2019 03:04 PM LDLDIRECT 102 01/09/2019 09:26 AM ALT 10 02/27/2024 08:36 AM ALT 12 11/06/2023 07:57 AM ALT 9 (L) 04/03/2020 08:52 AM HGBA1C 5.6 11/04/2023 12:00 AM documented in this encounter Plan of Treatment Upcoming Encounters Date Type Department Care Team (Late st Contact Info) Description 09/13/2024 9:30 AM EDT Telemedicine [facility], [place] [address] [place] [address] Leora Alcocer PA-C [address] [place] [address] Barbara Butt, Community Health Cellophane Press Operator [address] [place] [address] Scheduled Procedures Name Priority Associated Diagnoses Date/Ti me COLONOSCOPY FLEXIBLE PROXIMA L DIAGNOSTIC Recall Special screening for malignant neoplasms, colon Health Maintenance Due Date Last Done Comments Zoster Vaccines (2 of 3) 07/02/2014 05/07/2014 DXA Scan 03/21/2016 03/21/2014, 12/12/2007, 10/15/2008, Additional history exists *BISPHONATE OR OTHER ACCEPTABLE MEDICATION NEEDED FOR OSTEOPOROSIS (REFER TO SMARTSET #1146) 02/09/2017 Adult Wellness Visit 02/23/2020 02/22/2019 COVID-19 Vaccine ( season) 2024 11/10/2021, 01/21/2021, 12/31/2020 Influenza Vaccine (FLU shot) (#1) 2024 07/27/2023, 08/18/2022, 08/18/2022, Additional history exists CKD PHOS USE SMARTSET 84419 08/25/202408/14, 09/30/2022, 04/03/2020, Additional history exists Depression Monitoring 09/30/2024 09/30/2023 Albumin/Creatinine Ratio 01/06/202501/06/2 024, 11/02/2023, 08/18/2022, Additional history exists GFR 02/14/2025 08/16/2024, 02/12, 11/06/2023, Additional history exists CKD HGB USE SMARTSET 25807 08/16/202508/16, 08/16/2024, 02/27/2024, Additional history exists TSH 08/16/2025 08/16/2024, 02/12, 02/27/2024, Additional history exists DTap/Tdap Vaccines (3 - Td or Tdap) 05/15/2032 05/15/2022, 04/03/2015, 05/03/2008, Additional history exists Pneumococcal Vaccine: 65+ Years Completed 01/02/2016, 05/03/2008 VITAMIN D LEVEL ONCE IN A LIFETIME-USE SMARTSET# 83320 Completed 02/27/2024, 01/19/2023, 05/27/2022, Additional history exists [...] this encounter Medical Devices Implanted Type Area Financial Market Dealer Device Identifier Shelf Expiration Date Model / Serial / Lot Lens Intraoc 22.0 - [id number] - [id number] Implanted:Qty: 1 on 01/15/2020 by Delta Johansen MD at OR [facility] Left: Eye BAUSCH [employer] LOMB 09/13/2024 [id number] / [id number] / Lens Intraoc 22.0 - [id number] - [id number] Implanted:Qty: 1 on 01/22/2020 by Delta Johansen MD at OR [facility] Right: Eye BAUSCH & LOMB 02/12/2024 [id number] / [id number] / [id number] documented as of this encounter Visit Diagnoses Diagnosis Arthritis Arthropathy, unspecified, site unspecified documented in this encounter Care Teams Edger Runner Relationship Specialty Start Date End Date Lily Parham PA-C [address] [facility] [place] [address] PCP - General Physician Cellophane Press Operator 07/20/24 documented as of this encounter
--- OUTSIDE RECORDS SUMMARY | 2024-09-03 19:56 | External Medical Summary | Summary of Care ---
Author Name Unknown Organization [facility] Address [address] [place] [address] Phone [phone] Care Team Providers Care Human Resources Professional Name Role Phone Lily Parham PA-C Primary Care Provider [phone] Reason for Visit * Reason Onset Date Comments Health Maintenance 08/09/2024 Encounter Details Date Type Department Care Team (Late st Contact Info) Description 08/09/2024 Telephone [facility] [address] [place] [address] Lily Parham PA-C [address] [place] [address] Health Maintenance Allergies No known active allergiesdocumented as of this encounter (statuses as of 08/10/2024) Medications Medication Sig Dispensed Refills Start Date [...] meds). 90 Tablet 1 06/21/2024 Active Nystatin 823186 UNIT/GM External Powder (Nystop) Apply topically to affected area 3 times a day. Apply to abdominal folds 60 g 1 06/21/2024 Active Pramipexole Dihydrochloride 0.25 MG Oral Tablet (Mirapex)Indications: Restless legs syndrome TAKE 1 TABLET IN THE AFTERNOON AND 2 TABLETS AT BEDTIME 270 Tablet 3 06/21/2024 Active Vitamin D (Ergocalciferol) 1.25 MG (98566 UT) Oral Capsule (Drisdol) TAKE 1 CAPSULE ONCE WEEKLY 12 Capsule 1 06/21/2024 Active Bumetanide 1 MG Oral Tablet (Bumex) Take 1 Tablet by mouth in the morning and 1 Tablet before bedtime. 120 Tablet 3 06/21/2024 Active Bumetanide 1 MG Oral Tablet Take extra as directed by Nephrology for fluid overload 60 Tablet 3 06/21/2024 Active metroNIDAZOLE 500 MG Oral Tablet Take 1 Tablet by mouth in the morning and 1 Tablet at noon and 1 Tablet before bedtime. Do all this for 10 days. 30 Tablet 08/02/2024 Active documented as of this encounter (statuses as of 08/10/2024) Active Problems Problem Noted Date Diagnosed Date [...] as of this encounter (statuses as of 08/10/2024) Resolved Problems Problem Noted Date Diagnosed Date [...] as of this encounter (statuses as of 08/10/2024) Immunizations Name Administration Dates Next Due COVID-19 mRNA, LNP-s, No Pre serve, 2-Dose Series (Pfizer) 11/10/2021,01/21/2021,12/31/2020 Pneumococcal Conjugate Vacc, 13 Valent (Prevnar) 01/02/2016 Pneumococcal Polysaccharide PPV23 (Pneumovax) 05/03/2008 Seasonal Influenza Virus Vac cine, Unspecified Formulation 08/18/2022,09/06/2019,09/10/2003,08/14 Seasonal Influenza, PF, 6 M & above, IM , (FluLaval or Fluzone) 08/25/2021,08/14/2020,09/06/2019,08/14,08/24/2017 Seasonal Influenza, Quadriva lent Hd (Fluzone Hd) 07/27/2023,08/18/2022 Seasonal Influenza, Quadriva lent Hd, 65+ Yrs 09/03/2020 Seasonal Influenza, Quadriva lent, No Preserve, IM 09/06/2016,09/01/2015 09/01/2016 Seasonal Influenza, Trivalen t, (IIV3), with Preserv, (Fluzone) 11/11/2014,10/24/2009(Deferred: Patient Refused),09/10/2003,08/31/2002 TD - Tetanus/Diptheria (ADULT) 05/03/2008 TD, Preservative [...] encounter Miscellaneous Notes * Telephone Encounter - Malena Sumner LPN - 08/10/2024 1:08 PM EDT Spoke with patient. Declined HM. Not able to get out of the house right now. She has [facility] that does a tele visit with her. * Telephone Encounter - Malena Sumner LPN - 08/09/2024 9:14 AM EDT Care Gaps Comprehensive Care Outreach Last Office/Telemedicine Visit: 12/16/2023 (in office), Visit date not found (telemedicine) Next Office Visit: Visit date not found Hemoglobin AIC Results: Lab Results Component Value Date/Time HEMOGLOBIN A1C - [facility] 5.3 01/19/2023 11:29 AM HEMOGLOBIN A1C - [facility] 5.6 06/25/2021 11:33 AM BP Readings from Last 1 Encounters: 08/02/24 135/70 Reviewed Health Maintenance below: Health Maintenance Topic Date Due Zoster Vaccines (2 of 3) 07/02/2014 DXA Scan 03/21/2016 *BISPHONATE OR OTHER ACCEPTABLE MEDICATION NEEDED FOR OSTEOPOROSIS (REFER TO SMARTSET #1146) Never done Adult Wellness Visit 02/23/2020 Influenza Vaccine (FLU shot) (1) 07/15/2024 COVID-19 Vaccine ( season) 2024 CKD PHOS USE SMARTSET 90252 08/25/2024 GFR 08/28/2024 Depression Monitoring 09/30/2024 Dexa Awv Labs already ordered add phos ov Care Gap Outreach Action Taken: Left message documented in this encounter Plan of Treatment Upcoming Encounters Date Type Department Care Team (Late st Contact Info) Description 08/16/2024 7:10 AM EDT Laboratory Lab Mobile Phlebotomy [facility] [address] [place] [address] [facility], [facility] Mobile Home Draw [address] [place] [address] 09/13/2024 9:30 AM EDT Telemedicine [facility], [place] [address] [place] [address] Anne Alcocer PA-C [address] [place] [address] Barbara Butt, Community Health Legal Nurse Consultant [address] [place] [address] Scheduled Procedures Name Priority Associated Diagnoses Date/Ti [...] Additional history exists CKD PHOS USE SMARTSET 46238 08/25/202408/14, 09/30/2022, 04/03/2020, Additional history exists GFR 08/28/2024 02/27/2024, 10/15, 08/25/2023, Additional history exists Depression Monitoring 09/30/2024 09/30/2023 Albumin/Creatinine Ratio 01/06/2025 024, 11/02/2023, 08/18/2022, Additional history exists CKD HGB USE SMARTSET 90111 02/26/202502/26, 02/27/2024, 11/06/2023, Additional history exists TSH 02/26/2025 02/27/2024, 02/12, 01/19/2023, Additional history exists DTap/Tdap Vaccines (3 - Td or Tdap) 05/15/2032 05/15/2022, 04/03/2015, 05/03/2008, Additional history exists Pneumococcal Vaccine: 65+ Years Completed 01/02/2016, 05/03/2008 VITAMIN D LEVEL ONCE IN A LIFETIME-USE SMARTSET# 12618 Completed 02/27/2024, 01/19/2023, 05/27/2022, Additional history exists [...] this encounter Medical Devices Implanted Type Area Bakery Machine Mechanic Device Identifier Shelf Expiration Date Model / Serial / Lot Lens Intraoc 22.0 - [id number] - [id number] Implanted:Qty: 1 on 01/15/2020 by Delta Johansen MD at OR [facility] [facility] Left: Eye BAUSCH & LOMB 09/13/2024 [id number] / [id number] / Lens Intraoc 22.0 - [id number] - [id number] Implanted:Qty: 1 on 01/22/2020 by Delta Johansen MD at OR [facility] Right: Eye BAUSCH & LOMB 02/12/2024 [id number] / [id number] / [id number] documented as of this encounter Care Teams Human Resources Professional Relationship Specialty Start Date End Date Lily Parham PA-C [address] [facility] [place] [address] PCP - General Physician Legal Nurse Consultant 07/20/24 documented as of this encounter
--- OUTSIDE RECORDS SUMMARY | 2024-09-03 19:56 | External Medical Summary | Summary of Care ---
Author Name Unknown Organization [facility] Address [address] [place] [address] Phone [phone] Care Team Providers Care Heavy Machinery Operator Name Role Phone Lily Parham PA-C Primary Care Provider [phone] Reason for Visit * Reason Onset Date Comments Home Health 08/07/2024 Encounter Details Date Type Department Care Team (Late st Contact Info) Description 08/07/2024 Telephone [facility] [address] [place] [address] Lily Parham PA-C [address] [place] [address] Home Health Allergies No known active allergiesdocumented as of [...] meds). 90 Tablet 1 06/21/2024 Active Nystatin 718174 UNIT/GM External Powder (Nystop) Apply topically to affected area 3 times a day. Apply to abdominal folds 60 g 1 06/21/2024 Active Pramipexole Dihydrochloride 0.25 MG Oral Tablet (Mirapex)Indications: Restless legs syndrome TAKE 1 TABLET IN THE AFTERNOON AND 2 TABLETS AT BEDTIME 270 Tablet 3 06/21/2024 Active Vitamin D (Ergocalciferol) 1.25 MG (24493 UT) Oral Capsule (Drisdol) TAKE 1 CAPSULE [...] t, (IIV3), with Preserv, (Fluzone) 11/11/2014,10/24/2009(Deferred: Patient Refused) TD - Tetanus/Diptheria (ADULT) 05/03/2008 TD, Preservative [...] Encounter - Malena Sumner LPN - 08/10/2024 1:06 PM EDT I spoke to patient for a care gaps follow up. She said she has not heard back from anyone in regards to something for pain. Please advise. Thank you, Malena Sumner LPN Care Gaps Department * Telephone Encounter - Hailey Brdiges LPN - 08/07/2024 12:21 PM EDT HH Concerns Nakita PT, Calling from: [facility] Report/Concerns of: Pain Symptoms: See Below. Vitals: T 97.6 P 71 BP 122/80 SP O2 97% RA Pain 7/10- Left Knee Narrative: Nakita calling in as she is with patient at the time of call for PT HH visit. Patient is reporting Pain 7/10 left knee which is really limiting her PT abilities, she was doing really good toward her goal of getting out of the house to be able to go to appointments. She had X-ray done on 08/03 which there were no acute findings. She only has Tylenol for pain but it is not touching it. She thinks if patient can get the pain calmed down that she will be able to get in and out of her house safely. Sending encounter to [facility] provider and PCP Please advise and call patient back with recommendations * Telephone Encounter - Jenna Corbett OSA - 08/07/2024 12:18 PM EDT Reason for patient's call: Nakita Physical Therapist, from [facility] PT ([phone]) Caller was transferred to Hailey at the nurse line. documented in this encounter Plan of Treatment Upcoming Encounters Date Type Department Care Team (Late st Contact Info) Description 08/16/2024 7:10 AM EDT Laboratory Lab Mobile Phlebotomy [facility] [address] [facility], [place] [address] [facility], [facility] Mobile Home Draw [address] [facility] [place] [place] [address] 09/13/2024 9:30 AM EDT Telemedicine [facility], [place] [address] [place] [address] Anne Alcocer PA-C [address] [place] [address] Barbara Butt, Community Health Bill Of Materials Clerk [address] [place] [address] Scheduled Procedures Name Priority Associated [...] Additional history exists CKD PHOS USE SMARTSET 35402 08/25/202408/14, 09/30/2022, 04/03/2020, Additional history exists GFR 08/28/2024 02/27/2024, 10/15, 08/25/2023, Additional history exists Depression Monitoring 09/30/2024 09/30/2023 Albumin/Creatinine Ratio 01/06/2025 024, 11/02/2023, 08/18/2022, Additional history exists CKD HGB USE SMARTSET 80027 02/26/202502/26, 02/27/2024, 11/06/2023, Additional history exists TSH 02/26/2025 02/27/2024, 02/12, 01/19/2023, Additional history exists DTap/Tdap Vaccines (3 - Td or Tdap) 05/15/2032 05/15/2022, 04/03/2015, 05/03/2008, Additional history exists Pneumococcal Vaccine: 65+ Years Completed 01/02/2016, 05/03/2008 VITAMIN D LEVEL ONCE IN A LIFETIME-USE SMARTSET# 72410 Completed 02/27/2024, 01/19/2023, 05/27/2022, Additional history exists [...] this encounter Medical Devices Implanted Type Area Fundraising Officer Device Identifier Shelf Expiration Date Model / Serial / Lot Lens Intraoc 22.0 - [id number] - [id number] Implanted:Qty: 1 on 01/15/2020 by Delta Johansen MD at OR [facility] Left: Eye BAUSCH & LOMB 09/13/2024 [id number] / [id number] / Lens Intraoc 22.0 - [id number] - [id number] Implanted:Qty: 1 on 01/22/2020 by Delta Johansen MD at OR [facility] Right: Eye BAUSCH & LOMB 02/12/2024 [id number] / [id number] / [id number] documented as of this encounter Care Teams Heavy Machinery Operator Relationship Specialty Start Date End Date Lily Parham PA-C [address] [facility] [place] [address] PCP - General Physician Bill Of Materials Clerk 07/20/24 documented as of this encounter
--- OUTSIDE RECORDS SUMMARY | 2024-09-03 19:56 | External Medical Summary ---
Author Name Unknown Address Unknown Organization K01:[facility] - [address] [facility] [place] [address] Laboratory Report Ordering Provider Test Date Status [facility] COREY 08/16/2024 09:14:00 Final Observation Date Value Abnormality Reference (Units ) Status WBC, Total 08/16/2024 09:14:00 3.18 Below low normal 4. 00-10.80 (K/uL) Final RBC 08/16/2024 09:14:00 3.66 3.85-5.15 (M/uL) Final Hemoglobin 08/16/2024 09:14:00 11.5 Below low normal 12 .0-15.3 (g/dL) Final Anemia reflex testing trigge rs on a HGB < 12.0 for Females and HGB < 13.0 for Males in accordance with the WHO Anemia Guidelines
Anemia reflex testing triggers on a HGB < 12.0 for Females and HGB < 13.0 for Males in accordance with the WHO Anemia Guidelines HCT 08/16/2024 09:14:00 37.2 36.0-45.2 (%) Final MCV 08/16/2024 09:14:00 101.6 81.5-97.5 (fL) Final MCH 08/16/2024 09:14:00 31.4 27.0-34.0 (pg) Final MCHC 08/16/2024 09:14:00 30.9 32.0-36.0 (g/dL) Final RDW 08/16/2024 09:14:00 14.1 11.5-15.5 (%) Final Platelets 08/16/2024 09:14:00 166 140-400 (K /uL) Final MPV 08/16/2024 09:14:00 11.7 6.6-11.1 ( fL) Final Nucleated erythrocytes/100 leukocytes [Ratio] in Blood by Automated count 08/16/2024 09:14:00 0 <=0 (/100 WBCs) Fi nal Performing Location [facility] - [address] [facility] [address]
--- OUTSIDE RECORDS SUMMARY | 2024-09-03 19:56 | External Medical Summary | Summary of Care ---
Author Name Unknown Organization [facility] Address [address] [place] [address] Phone [phone] Care Team Providers Care Pediatric Dental Assistant Name Role Phone Lily Parham PA-C Primary Care Provider [phone] [phone] Reason for Visit * Reason Onset Date Comments Information 08/02/2024 Encounter Details Date Type Department Care Team ([facility] st Contact Info) Description 08/02/2024 Telephone [facility] [place] [address] [place] [id number] Jason Holman, NIKKI [address] [place], [place] [id number] Information Allergies No known active allergiesdocumented as of this encounter (statuses as of 08/02/2024) Medications Medication Sig Dispensed Refills Start Date [...] meds). 90 Tablet 1 06/21/2024 Active Nystatin 888176 UNIT/GM External Powder (Nystop) Apply topically to affected area 3 times a day. Apply to abdominal folds 60 g 1 06/21/2024 Active Pramipexole Dihydrochloride 0.25 MG Oral Tablet (Mirapex)Indications: Restless legs syndrome TAKE 1 TABLET IN THE AFTERNOON AND 2 TABLETS AT BEDTIME 270 Tablet 3 06/21/2024 Active Vitamin D (Ergocalciferol) 1.25 MG (28282 UT) Oral Capsule (Drisdol) TAKE 1 CAPSULE [...] all this for 10 days. 30 Tablet 07/27/2024 4 Active Cefdinir 300 MG Oral Capsule (Omnicef) Take 1 Capsule by mouth in the morning and 1 Capsule before bedtime. Do all this for 5 days. 10 Capsule 08/02/2024 4 Active metroNIDAZOLE 500 MG Oral Tablet Take 1 Tablet by mouth in the morning and 1 Tablet at noon and 1 Tablet before bedtime. Do all this for 10 days. 30 Tablet 08/02/2024 4 Active documented as of this encounter (statuses as of 08/02/2024) Active Problems Problem Noted Date Diagnosed Date [...] as of this encounter (statuses as of 08/02/2024) Resolved Problems Problem Noted Date Diagnosed Date [...] as of this encounter (statuses as of 08/02/2024) Immunizations Name Administration Dates Next Due COVID-19 mRNA, LNP-s, No Pre serve, 2-Dose Series ([employer]) 11/10/2021,01/21/2021,12/31/2020 Pneumococcal Conjugate Vacc, 13 Valent (Prevnar) [...] encounter Miscellaneous Notes * Telephone Encounter - Jason Holman OSA - 08/02/2024 1:37 PM EDT [facility] [phone] p [phone] f Call to and faxed knee xray order and pt ins / demo, they will be out later today to see pt documented in this encounter Plan of Treatment Upcoming Encounters Date Type Department Care Team (Late st Contact Info) Description 09/13/2024 9:30 AM EDT Telemedicine [facility] [address] [place] [address] Anne Alcocer PA-C [address] [place] [address] Barbara Butt, Community [facility] Forestry Biology Specialist [address] [place] [address] Scheduled Procedures Name Priority Associated Diagnoses Date/Ti [...] Additional history exists CKD PHOS USE SMARTSET 31930 08/25/202408/14, 09/30/2022, 04/03/2020, Additional history exists GFR 08/28/2024 02/27/2024, 10/15, 08/25/2023, Additional history exists Depression Monitoring 09/30/2024 09/30/2023 Albumin/Creatinine Ratio 01/06/2025 024, 11/02/2023, 08/18/2022, Additional history exists CKD HGB USE SMARTSET 78498 02/26/202502/26, 02/27/2024, 11/06/2023, Additional history exists TSH 02/26/2025 02/27/2024, 02/12, 01/19/2023, Additional history exists DTap/Tdap Vaccines (3 - Td or Tdap) 05/15/2032 05/15/2022, 04/03/2015, 05/03/2008, Additional history exists Pneumococcal Vaccine: 65+ Years Completed 01/02/2016, 05/03/2008 VITAMIN D LEVEL ONCE IN A LIFETIME-USE SMARTSET# 28381 Completed 02/27/2024, 01/19/2023, 05/27/2022, Additional history exists [...] this encounter Medical Devices Implanted Type Area Press Loader Device Identifier Shelf Expiration Date Model / Serial / Lot Lens Intraoc 22.0 - [id number] - [id number] Implanted:Qty: 1 on 01/15/2020 by Delta Johansen MD at OR [facility] Left: Eye BAUSCH & LOMB 09/13/2024 [id number] / [id number] / Lens Intraoc 22.0 - [id number] - [id number] Implanted:Qty: 1 on 01/22/2020 by Delta Johansen MD at OR [facility] Right: Eye BAUSCH & LOMB 02/12/2024 [id number] / [id number] documented as of this encounter Care Teams Pediatric Dental Assistant Relationship Specialty Start Date End Date Lily Parham PA-C [address] [facility] [place] [address] PCP - General Physician Forestry Biology Specialist 07/20/24 documented as of this encounter
--- OUTSIDE RECORDS SUMMARY | 2024-09-03 19:56 | External Medical Summary | Summary of Care ---
Author Name Unknown Organization [facility] Address [address] [place] [address] Phone [phone] Care Team Providers Care Hand Booked Folder And Stitcher Name Role Phone Lily Parham PA-C Primary Care Provider [phone] Reason for Visit * Reason Onset Date Comments Test Results 08/03/2024 Encounter Details Date Type Department Care Team ([facility] st Contact Info) Description 08/03/2024 Telephone [facility] [place] [address] [place] [address] Anne Alcocer PA-C [address] [place] [address] Test Results Allergies No known active allergiesdocumented as of this encounter (statuses as of 08/03/2024) Medications Medication Sig Dispensed Refills Start Date [...] meds). 90 Tablet 1 06/21/2024 Active Nystatin 270527 UNIT/GM External Powder (Nystop) Apply topically to affected area 3 times a day. Apply to abdominal folds 60 g 1 06/21/2024 Active Pramipexole Dihydrochloride 0.25 MG Oral Tablet (Mirapex)Indications: Restless legs syndrome TAKE 1 TABLET IN THE AFTERNOON AND 2 TABLETS AT BEDTIME 270 Tablet 3 06/21/2024 Active Vitamin D (Ergocalciferol) 1.25 MG (84671 UT) Oral Capsule (Drisdol) TAKE 1 CAPSULE [...] as of this encounter (statuses as of 08/03/2024) Active Problems Problem Noted Date Diagnosed Date [...] as of this encounter (statuses as of 08/03/2024) Resolved Problems Problem Noted Date Diagnosed Date [...] as of this encounter (statuses as of 08/03/2024) Immunizations Name Administration Dates Next Due COVID-19 [...] Telephone Encounter - Anne Alcocer PA-C - 08/03/2024 12:32 PM EDT Called patient with knee x-ray results. Hardware is intact, no acute findings. Likely the knee became aggravated with PT. Reviewed supportive treatment and S/S persist would recommend seeing orthopedics. documented in this encounter Plan of Treatment Upcoming Encounters Date Type Department Care Team (Late st Contact Info) Description 08/16/2024 7:10 AM EDT Laboratory [facility] [address] [place] [address] [facility] Draw [address] [place] [address] 09/13/2024 9:30 AM EDT [facility] [place] [address] [place] [address] Anne Alcocer PA-C [address] [place] [address] Barbara Butt, [facility] Dowel Sticker Operator [address] [place] [address] Scheduled Procedures Name Priority Associated [...] Additional history exists CKD PHOS USE SMARTSET 13034 08/25/202408/14, 09/30/2022, 04/03/2020, Additional history exists GFR 08/28/2024 02/27/2024, 10/15, 08/25/2023, Additional history exists Depression Monitoring 09/30/2024 09/30/2023 Albumin/Creatinine Ratio 01/06/2025 024, 11/02/2023, 08/18/2022, Additional history exists CKD HGB USE SMARTSET 36705 02/26/202502/26, 02/27/2024, 11/06/2023, Additional history exists TSH 02/26/2025 02/27/2024, 02/12, 01/19/2023, Additional history exists DTap/Tdap Vaccines (3 - Td or Tdap) 05/15/2032 05/15/2022, 04/03/2015, 05/03/2008, Additional history exists Pneumococcal Vaccine: 65+ Years Completed 01/02/2016, 05/03/2008 VITAMIN D LEVEL ONCE IN A LIFETIME-USE SMARTSET# 72131 Completed 02/27/2024, 01/19/2023, 05/27/2022, Additional history exists [...] this encounter Medical Devices Implanted Type Area Housecleaner Device Identifier Shelf Expiration Date Model / Serial / Lot Lens Intraoc 22.0 - [id number] - [id number] Implanted:Qty: 1 on 01/15/2020 by Delta Johansen MD at OR [facility] Left: Eye BAUSCH & LOMB 09/13/2024 [id number] / [id number] / Lens Intraoc 22.0 - [id number] - [id number] Implanted:Qty: 1 on 01/22/2020 by Delta Johansen MD at OR [facility] Right: Eye BAUSCH & LOMB 02/12/2024 [id number] / [id number] / [id number] documented as of this encounter Care Teams Hand Booked Folder And Stitcher Relationship Specialty Start Date End Date Lily Parham PA-C [address] [facility] [place] [address] PCP - General Physician Dowel Sticker Operator 07/20/24 documented as of this encounter
--- OUTSIDE RECORDS SUMMARY | 2024-09-03 19:56 | External Medical Summary | Summary of Care ---
Author Name Unknown Organization [facility] Address [address] [place] [address] Phone [phone] Care Team Providers Care Manufacturing Director Name Role Phone Lily Parham PA-C Primary Care Provider [phone] [phone] Reason for Visit * Reason Onset Date Comments Forms Request 08/09/2024 [facility] Encounter Details Date Type Department Care Team (Late st Contact Info) Description 08/09/2024 Telephone [facility] [address] [place] [address] Lily Parham PA-C [address] [place] [address] Forms Request ([facility]) Allergies No known active allergiesdocumented as of this encounter (statuses as of 08/09/2024) Medications Medication Sig Dispensed Refills Start Date [...] meds). 90 Tablet 1 06/21/2024 Active Nystatin 586161 UNIT/GM External Powder (Nystop) Apply topically to affected area 3 times a day. Apply to abdominal folds 60 g 1 06/21/2024 Active Pramipexole Dihydrochloride 0.25 MG Oral Tablet (Mirapex)Indications: Restless legs syndrome TAKE 1 TABLET IN THE AFTERNOON AND 2 TABLETS AT BEDTIME 270 Tablet 3 06/21/2024 Active Vitamin D (Ergocalciferol) 1.25 MG (90249 UT) Oral Capsule (Drisdol) TAKE 1 CAPSULE [...] as of this encounter (statuses as of 08/09/2024) Active Problems Problem Noted Date Diagnosed Date [...] as of this encounter (statuses as of 08/09/2024) Resolved Problems Problem Noted Date Diagnosed Date [...] as of this encounter (statuses as of 08/09/2024) Immunizations Name Administration Dates Next Due COVID-19 mRNA, LNP-s, No Pre serve, 2-Dose Series (CCBR-SYNARC) 11/10/2021,01/21/2021,12/31/2020 Pneumococcal Conjugate Vacc, 13 Valent (Prevnar) [...] Telephone Encounter - Terri Manzanares LPN - 08/09/2024 6:28 PM EDT Received fax from [facility], reviewed and signed by provider, and faxed back to [facility]. Fimed into pt's chart. documented in this encounter Plan of Treatment Upcoming Encounters Date Type Department Care Team (Late st Contact Info) Description 08/16/2024 7:10 AM EDT Laboratory [facility] [address] [place] [address] [facility] Home Draw [address] [place] [address] 09/13/2024 9:30 AM EDT Telemedicine [facility] [address] [place] [address] Anne Alcocer PA-C [address] [place] [address] Barbara Butt, Community [facility] Boiler Tube Reamer [address] [place] [address] Scheduled Procedures Name Priority Associated Diagnoses Date/Ti [...] Additional history exists CKD PHOS USE SMARTSET 38841 08/25/202408/14, 09/30/2022, 04/03/2020, Additional history exists GFR 08/28/2024 02/27/2024, 10/15, 08/25/2023, Additional history exists Depression Monitoring 09/30/2024 09/30/2023 Albumin/Creatinine Ratio 01/06/2025 024, 11/02/2023, 08/18/2022, Additional history exists CKD HGB USE SMARTSET 09767 02/26/202502/26, 02/27/2024, 11/06/2023, Additional history exists TSH 02/26/2025 02/27/2024, 02/12, 01/19/2023, Additional history exists DTap/Tdap Vaccines (3 - Td or Tdap) 05/15/2032 05/15/2022, 04/03/2015, 05/03/2008, Additional history exists Pneumococcal Vaccine: 65+ Years Completed 01/02/2016, 05/03/2008 VITAMIN D LEVEL ONCE IN A LIFETIME-USE SMARTSET# 16366 Completed 02/27/2024, 01/19/2023, 05/27/2022, Additional history exists [...] this encounter Medical Devices Implanted Type Area Mixing Machine Tender Cork Gasket Device Identifier Shelf Expiration Date Model / Serial / Lot Lens Intraoc 22.0 - [id number] - [id number] Implanted:Qty: 1 on 01/15/2020 by Delta Johansen MD at OR [facility] Left: Eye BAUSCH & LOMB 09/13/2024 [id number] / [id number] / Lens Intraoc 22.0 - [id number] - [id number] Implanted:Qty: 1 on 01/22/2020 by Delta Johansen MD at OR [facility] Right: Eye BAUSCH & LOMB 02/12/2024 [id number] / [id number] / [id number] documented as of this encounter Care Teams Manufacturing Director Relationship Specialty Start Date End Date Lily Parham PA-C [address] [facility] [place] [id number] PCP - General Physician Boiler Tube Reamer 07/20/24 documented as of this encounter
--- OUTSIDE RECORDS SUMMARY | 2024-09-03 19:56 | External Medical Summary ---
Author Name Unknown Address Unknown Organization K01:[facility] [place] [address] [place] [address] Laboratory Report Ordering Provider Test Date Status PARISH COREY 08/16/2024 09:14:00 Final Observation Date Value Abnormality Reference (Units ) Status SYNC LEUKOCYTES IN BLOOD BY AUTOMATED COUNT 08/16/2024 09:14:00 3.18 Below low normal 4.00-10.80 (K/uL) Final Segs 08/16/2024 09:14:00 65.8 40.0-75.0 (%) Final Lymphs % 08/16/2024 09:14:00 20.4 18.0-42.0 (%) Final Monos 08/16/2024 09:14:00 11.3 Above high normal 1.0-11.0 (%) Final Eosinophils 08/16/2024 09:14:00 2.2 0.0-6.0 (%) Final Basos 08/16/2024 09:14:00 0.0 0.0-2.0 (%) Final Immature Granulocyte, Percent 08/16/2024 09:14:00 0.3 0.0-2.0 (%) Final Absolute Segs 08/16/2024 09:14:00 2.09 1.80-7.70 (K/uL) Final Lymphs, absolute 08/16/2024 09:14:00 0.65 Below low normal 1.00-4.80 (K/ul) Final Monos, Abs 08/16/2024 09:14:00 0.36 0.00-1.10 (K/uL) Final Eos, Abs 08/16/2024 09:14:00 0.07 0.00-0.70 (K/uL) Final Basos, Abs 08/16/2024 09:14:00 0.00 0.00-0.20 (K/uL) Final Immature Granulocytes, Number 08/16/2024 09:14:00 0.01 0.00-0.20 (K/uL) Final Performing Location [facility] - [facility] [address]. [facility] [address]
--- OUTSIDE RECORDS SUMMARY | 2024-09-03 19:56 | External Medical Summary ---
Author Name Unknown Address Unknown Organization K01:[facility] [place] - [address] [place] [address] Laboratory Report Ordering Provider Test Date Status PARISH COREY 08/16/2024 09:14:00 Final Observation Date Value Abnormality Reference (Units ) Status Parathyrin.intact [Mass/volume] in Serum or Plasma 08/16/2024 09:14:00 101 Above high normal 15-65 (pg/mL) Final Performing Location LAB[facility] [place] - [address] [place] [id number]
--- OUTSIDE RECORDS SUMMARY | 2024-09-03 19:56 | External Medical Summary | Summary of Care ---
Author Name Unknown Organization [facility] Address [address] [place] [address] Phone [phone] Care Team Providers Care Legal Entity Controller Name Role Phone Lily Parham PA-C Primary Care Provider [phone] [phone] Reason for Visit * Reason Onset Date Comments Home Health 08/07/2024 Encounter Details Date Type Department Care Team (Late st Contact Info) Description 08/07/2024 Telephone [facility] [address] [place] [address] Lily Parham PA-C [address] [place] [address] Home Health Allergies No known active allergiesdocumented as of this encounter (statuses as of 08/13/2024) Medications Medication Sig Dispensed Refills Start Date [...] 3 06/21/2024 Active Clotrimazole 1 % Vaginal CreamIndications:Vag luisa itching Apply a pea sized dollop to vaginal entrance and labia at bedtime nightly 45 g 3 06/21/2024 Active Colestipol HCl 1 GM Oral Tablet (Colestid)Indication s:Irritable bowel syndrome with diarrhea Take 2 Tablets by mouth in the morning and 2 Tablets before bedtime. Take extra table on days with diarrhea for max of 5 per day. 450 Tablet 3 06/21/2024 Active Diphenoxylate-Atropi ne 2.5-0.025 MG Oral Tablet (Lomotil)Indications :Diarrhea, unspecified type Take 1 Tablet by mouth every 6 hours as needed for Diarrhea. 30 Tablet 1 06/21/2024 Active Ferrous Sulfate 325 (65 Fe) MG Oral Tablet (Feosol) Take 1 Tablet by mouth daily with breakfast. Take 1 tab daily 180 Tablet 1 06/21/2024 Active Gabapentin 400 MG Oral Capsule (Neurontin)Indicatio ns:Arthralgia, unspecified joint Take 1 Capsule by mouth in the morning and 1 Capsule at noon and 1 Capsule before bedtime. 270 Capsule 1 06/21/2024 Active Levothyroxine Sodium 125 MCG Oral Tablet (Levoxyl)Indications :Other specified hypothyroidism Take 1 Tablet by mouth in the morning. (at least 30 min prior to breakfast or other meds). 90 Tablet 1 06/21/2024 Active Nystatin 307487 UNIT/GM External Powder (Nystop) Apply topically to affected area 3 times a day. Apply to abdominal folds 60 g 1 06/21/2024 Active Pramipexole Dihydrochloride 0.25 MG Oral Tablet (Mirapex)Indications :Restless legs syndrome TAKE 1 TABLET IN THE AFTERNOON AND 2 TABLETS AT BEDTIME 270 Tablet 3 06/21/2024 Active Vitamin D (Ergocalciferol) 1.25 MG (15658 UT) Oral Capsule (Drisdol) TAKE 1 CAPSULE [...] for 10 days. 30 Tablet 08/02/2024 4 documented as of this encounter (statuses as of 08/13/2024) Active Problems Problem Noted Date Diagnosed Date [...] as of this encounter (statuses as of 08/13/2024) Resolved Problems Problem Noted Date Diagnosed Date [...] as of this encounter (statuses as of 08/13/2024) Immunizations Name Administration Dates Next Due COVID-19 [...] Parham PA-C - 08/13/2024 3:57 PM EDT 2 messages in about same subject Lily Parham PA-C * Telephone Encounter - Malena Sumner LPN - 08/10/2024 1:06 PM EDT I spoke to patient for a care gaps follow up. She said she has not heard back from anyone in regards to something for pain. Please advise. Thank you, Malena Sumner LPN Care Gaps Department * Telephone Encounter - Hailey Bridges LPN - 08/07/2024 12:21 PM EDT HH Concerns [facility] PT, Calling from: [facility] [employer]/Concerns of: Pain Symptoms: See Below. Vitals: [...] of her house safely. Sending encounter to [facility] provider and PCP Please advise and call patient back with recommendations * Telephone Encounter - Patricia-Jenna Barbosa OSA - 08/07/2024 12:18 PM EDT Reason for patient's call: Nakita, Physical Therapist, from [facility] ([phone]) Caller was transferred to [facility] at the nurse line. documented in this encounter Plan of Treatment Upcoming Encounters Date Type Department Care Team (Late st Contact Info) Description 08/16/2024 7:10 AM EDT Laboratory Lab [facility] [address] [place] [address] [facility] Draw [address] [place] [address] 09/13/2024 9:30 AM EDT Telemedicine [facility], [place] [address] [place] [address] Anne Alcocer PA-C [address] [place] [address] Barbara Butt, Community Health R Programmer [address] [place] [address] Scheduled Procedures Name Priority Associated [...] Additional history exists CKD PHOS USE SMARTSET 02791 08/25/202408/14, 09/30/2022, 04/03/2020, Additional history exists GFR 08/28/2024 02/27/2024, 10/15, 08/25/2023, Additional history exists Depression Monitoring 09/30/2024 09/30/2023 Albumin/Creatinine Ratio 01/06/2025 024, 11/02/2023, 08/18/2022, Additional history exists CKD HGB USE SMARTSET 40275 02/26/202502/26, 02/27/2024, 11/06/2023, Additional history exists TSH 02/26/2025 02/27/2024, 02/12, 01/19/2023, Additional history exists DTap/Tdap Vaccines (3 - Td or Tdap) 05/15/2032 05/15/2022, 04/03/2015, 05/03/2008, Additional history exists Pneumococcal Vaccine: 65+ Years Completed 01/02/2016, 05/03/2008 VITAMIN D LEVEL ONCE IN A LIFETIME-USE SMARTSET# 52725 Completed 02/27/2024, 01/19/2023, 05/27/2022, Additional history exists [...] this encounter Medical Devices Implanted Type Area Field Geologist Device Identifier Shelf Expiration Date Model / Serial / Lot Lens Intraoc 22.0 - [id number] - [id number] Implanted:Qty: 1 on 01/15/2020 by Delta Johansen MD at OR [facility] Left: Eye BAUSCH & LOMB 09/13/2024 [id number] / [id number] / Lens Intraoc 22.0 - [id number] - [id number] Implanted:Qty: 1 on 01/22/2020 by Delta Johansen MD at OR [facility] Right: Eye BAUSCH & LOMB 02/12/2024 [id number] / [id number] / [id number] documented as of this encounter Care Teams Legal Entity Controller Relationship Specialty Start Date End Date Lily Parham PA-C [address] [place] [place] [address] PCP - General Physician R Programmer 07/20/24 documented as of this encounter
--- OUTSIDE RECORDS SUMMARY | 2024-09-03 19:56 | External Medical Summary | Summary of Care ---
Author Name Unknown Organization [facility] Address [address] [place] [address] Phone [phone] Care Team Providers Care Honey Processor Name Role Phone Lily Parham PA-C Primary Care Provider [phone] Reason for Referral * Ancillary Services (Within 30 days (routine)) - Authorized Specialty Diagnoses / Procedures Referred By Sophy ruelas Referred To Contact Map Drafter Diagnoses Chronic diastolic heart failure with preserved ejection fraction (HCC) Hypertensive kidney disease with stage 3a chronic kidney disease (HCC) Anne Alcocer PA-C [address] [place] [address] Referral ID Status Reason Start Date Expiration Date Visits Requested Visits Authorized [id number] Authorized Ancillary Services Required 08/02/2024 999 999 Question Answer Referral Priority Within 30 days (routine) Where should this appointment be scheduled? [facility] Comments Is Patient homebound? Yes All sections of this form must be filled out completely. Forms with missing or illegible information will be returned for completion. This form should not be modified in any way. Forms that have been modified will be returned. This form may not be submitted by a home health agency. It must be complete and submitted by the ordering provider. One full business day lead time is required and service will be scheduled based on the next service day for the [facility] Home Phlebotomy does not service every geographical location on a daily basis. Contact [facility] Client Services at to find out service days for a specific location. Medical Laboratory [address] [place] [address] Carloz Edouard M.D. Director and Industry Segment Specialist Patient Name: Asuncion ESTRADAN: [id number] : 1945 Sex: female Address [address] [place] [id number] Provider: @REF@? Lily Parham PA-C? Diagnosis: (M25.562) Acute pain of left knee (primary encounter diagnosis) Tests Requested CBC, CMP, Mag, PTH Please draw in August Encounter Details Date Type Department Care Team (Late st Contact Info) Description 08/02/2024 12:00 PM EDT Telemedicine [facility], [place] [address] [place] [address] Anne Alcocer PA-C [address] [place] [address] Barbara Butt, Community Health Compositor Apprentice [address] [place] [address] Acute pain of left knee*; Chronic diastolic heart failure with preserved ejection fraction (HCC); Lymphedema; Hypertensive kidney disease with stage 3a chronic kidney disease; Recurrent UTI Allergies No known active allergiesdocumented as of [...] 3 4 Active Clotrimazole 1 % Vaginal CreamIndications:Vag luisa [...] per day. 450 Tablet 3 4 Active Diphenoxylate-Atropi ne 2.5-0.025 MG Oral Tablet (Lomotil)Indications :Diarrhea, unspecified type Take 1 Tablet by mouth every 6 hours as needed for Diarrhea. 30 Tablet 1 4 Active Ferrous Sulfate 325 (65 Fe) MG Oral Tablet (Feosol) Take 1 Tablet by mouth daily with breakfast. Take 1 tab daily 180 Tablet 1 4 Active Gabapentin 400 MG Oral Capsule (Neurontin)Indicatio [...] meds). 90 Tablet 1 4 Active Nystatin 096397 UNIT/GM External Powder (Nystop) Apply topically to affected area 3 times a day. Apply to abdominal folds 60 g 1 4 Active Pramipexole Dihydrochloride 0.25 MG Oral Tablet (Mirapex)Indications :Restless legs syndrome TAKE 1 TABLET IN THE AFTERNOON AND 2 TABLETS AT BEDTIME 270 Tablet 3 4 Active Vitamin D (Ergocalciferol) 1.25 MG (03889 UT) Oral Capsule (Drisdol) TAKE 1 CAPSULE ONCE WEEKLY 12 Capsule 1 4 Active Bumetanide 1 MG Oral Tablet (Bumex) Take 1 Tablet by mouth in the morning and 1 Tablet before bedtime. 120 Tablet 3 4 Active Bumetanide 1 MG Oral Tablet Take extra as directed by Nephrology for fluid overload 60 Tablet 3 4 Active metroNIDAZOLE 500 MG Oral Tablet Take 1 Tablet by mouth in the morning and 1 Tablet at noon and 1 Tablet before bedtime. Do all this for 10 days. 30 Tablet 4 08/06/20 24 Active Cefdinir 300 MG Oral Capsule (Omnicef) Take 1 Capsule by mouth in the morning and 1 Capsule before bedtime. Do all this for 5 days. 10 Capsule 4 08/07/20 24 Active metroNIDAZOLE 500 MG Oral Tablet Take 1 Tablet by mouth in the morning and 1 Tablet at noon and 1 Tablet before bedtime. Do all this for 10 days. 30 Tablet 4 08/12/20 24 Active Nitrofurantoin Monohyd Macro 100 MG Oral Capsule (Macrobid) Take 1 Capsule by mouth in the morning and 1 Capsule before bedtime. Do all this for 7 days. With food until gone. 14 Capsule 4 08/02/20 24 Discontinu ed(Medicat ion/Dose Changed) documented as of this encounter (statuses as [...] mRNA, LNP-s, No Pre serve, 2-Dose Series ([employer]) 11/10/2021,01/21/2021,12/31/2020 Pneumococcal Conjugate Vacc, 13 Valent (Prevnar) [...] on file documented as of this encounter Last Filed Vital Signs Vital Sign Reading Time Taken Comments Blood Pressure 135/70 08/02/2024 12:26 PM EDT Pulse 60 08/02/2024 12:26 PM EDT Temperature 36.5 C (97.7 F) 08/02/2024 12:26 PM E DT Respiratory Rate - - Oxygen Saturation 96% 08/02/2024 12:26 PM EDT Inhaled Oxygen Concentration - - Weight - - Height - - Body Mass Index - - documented in this encounter Progress Notes * Barbara Butt, Community Health Compositor Apprentice - 08/02/2024 12:25 PM EDT Telemedicine visit: Yes Patient location: HOME. I was not in a hospital or clinic location. After connecting through televideo, patient was verified with two unique identifiers. Patient (or authorized legal chain sales representative) was then informed that this was a Telemedicine visit and being conducted confidentially over secure lines. Methods to assure confidentiality were taken. Patient acknowledged consent and understanding of privacy and security of the Telemedicine visit. The patient agreed to participate. Community Health Compositor Apprentice (JOHN) documentation: CHW facilitated telehealth visit with provider Kirstin Butt- Community Health Worker 1 Support Services/[facility] [email or web address] * Anne Alcocer PA-C - 08/02/2024 11:58 AM EDT [facility] Provider Telemedicine Visit Date: 08/02/2024 Time: 11:58 AM Assessment/Plan: 1. Acute pain of left knee - XR KNEE 3 VIEWS 2. Chronic diastolic heart failure with preserved ejection fraction (HCC) Stable Has had increased LE weeping. Advised to take an extra Bumex 2-3 days. - CBC WITH WBC DIFFERENTIAL AND ANEMIA REFLEX WORKUP; Future - COMPREHENSIVE METABOLIC PANEL; Future - MAGNESIUM; Future - PTH; Future - HOME PHLEBOTOMY REFERRAL OP 3. Lymphedema ISAIAS boots managed by HH 4. Hypertensive kidney disease with stage 3a chronic kidney disease Following with Nephrology - CBC WITH WBC DIFFERENTIAL AND ANEMIA REFLEX WORKUP; Future - COMPREHENSIVE METABOLIC PANEL; Future - MAGNESIUM; Future - PTH; Future - HOME PHLEBOTOMY REFERRAL OP 5. Recurrent UTI Follow up plan: Patient still complaining of UTI symptoms. Macrobid was sensitive on last culture but with a MELI of 32. Will treat with an additional 5 days of Cefdinir. Mobile knee xrays are orderedas she has had increased knee pain for >3 weeks after stopping PT. A total of 35 minutes was spent face to face via video-based telemedicine. Subjective Patient location: HOME. I was not in a hospital or clinic location. After connecting through televideo, patient was verified with two unique identifiers. Patient (or authorized legal chain sales representative) was then informed that this was a Telemedicine visit and being conducted confidentially over secure lines. Methods to assure confidentiality were taken. Patient acknowledged consent and understanding of privacy and security of the Telemedicine visit. The patient agreed to participate. Reason for Visit: Follow-Up Current Concerns: Asuncion Garcia is a 79 year old female seen today for a [facility] Telemedicine Provider Visit. Date of last known acute care visit: 06/21/24 with myself Reason for last known acute care visit: Patient was last admitted from 01/10/24-01/17/24 with LE cellulitis, UTI and bacteremia. She had a draining LE wound that grew Pseudomonas. She was discharged with Levaquin. She had JULISSA noted on labs. She had been taking Bumex 2 mg TID prior to the hospital visit. She was discharged to a rehab facility on 01/17/24 and returned home on 02/11/24. She has difficulty getting transportation to office visits. Nephrology recommendations: Bumex 1 mg BID if weight is between 235-240 lbs. If greater than 240 lbs take Bumex 1 mg TID. When I saw her in June, ISAIAS boots were recommended and was able to accommodate. She reached out to me with concern for UTI on 07/26. She was started on Macrobid. Today's concerns are: Patient states she is still having suprapubic pressure. She has one day left of the Macrobid. She doesn't feel it is clearing the infection. No fever/chills, N/V or flank pain. Urine appears clear. She has had increased LE weeping over the last couple days. is coming for ISAIAS boot changes. She still has open wounds to the LE's but no redness or heat. Breathing has been good. No SOB or GAMINO. She is having trouble ambulating as she has had left knee pain for weeks. Pain started when she was doing steps with PT. She had a TKR years ago. No redness to the knee or posterior pain. ROS: See HPI Objective Physical Exam: BP 135/70 (BP Site: Left Arm, BP Position: Sitting, BP Cuff Size: Regular) | Pulse 60 | Temp 36.5 C (97.7 F) (Infrared ) | SpO2 96% Previous Wts: Wt Readings from Last 5 Encounters: 04/19/24 109.8 kg (242 lb) 12/16/23 113.3 kg (249 lb 12.8 oz) 07/27/23 108.8 kg (239 lb 12.8 oz) 05/23/23 112.9 kg (249 lb) 05/23/23 112.9 kg (249 lb) Previous BPs: BP Readings from Last 5 Encounters: 06/21/24 135/80 04/19/24 140/70 03/21/24 104/60 02/20/24 124/78 12/16/23 116/64 Physical Exam Constitutional: General: She is not in acute distress. HENT: Head: Normocephalic and atraumatic. Nose: Nose normal. Mouth/Throat: Pharynx: Oropharynx is clear. Eyes: Extraocular Movements: Extraocular movements intact. Conjunctiva/sclera: Conjunctivae normal. Cardiovascular: Rate and Rhythm: Normal rate and regular rhythm. Pulmonary: Effort: Pulmonary effort is normal. No respiratory distress. Breath sounds: Normal breath sounds. Musculoskeletal: Comments: + lymphedema noted bilaterally, LLE: notable fluid blisters with mild erythema, RLE: healing skin noted distally, mild erythema with some fluid blisters present. Neurological: General: No focal deficit present. Mental Status: She is alert and oriented to person, place, and time. Medication Review: Current Outpatient Medications Medication Sig Dispense Refill vitamin b 12 (CYANOCOBALAMIN) 1000 MCG TABS Take 1 Tablet by mouth in the morning. docusate sodium (COLACE) 100 MG Capsule Take 1 Capsule by mouth 2 times a day as needed for Constipation. clonazePAM (KLONOPIN) 1 MG Tablet TAKE 1 TABLET PRIOR TO SLEEP, FOR PLMS And RLS (Patient not taking: Reported on 06/21/2024) 90 Tab 0 Saccharomyces boulardii 250 MG Oral Capsule (Florastor) Take 1 Capsule by mouth in the morning and 1 Capsule before bedtime. 60 Capsule 2 Diclofenac Sodium 1 % External Gel (Voltaren Arthritis Pain) Apply topically to affected area 4 times a day as needed (pain). Apply to hand arthritis 300 g 1 oxyCODONE HCl 5 MG Oral Tablet (Oxy IR) Take 1 Tablet by mouth every 4 hours as needed for Pain, Severe. (Patient not taking: Reported on 06/21/2024) 180 Tablet 0 Amitriptyline HCl 25 MG Oral Tablet (Elavil) TAKE 1 TABLET EVERY NIGHT 1 HOUR BEFORE BEDTIME (Patient not taking: Reported on 06/21/2024) 90 Tablet 1 LORazepam 0.5 MG Oral Tablet (Ativan) One tab 30 min before mri, repeat 15 min prior and at start (Patient not taking: Reported on 12/16/2023) 1 Tablet 0 Potassium Chloride Kadie ER 20 MEQ Oral Tablet Extended Release Take 1 Tablet by mouth in the morning and 1 Tablet before bedtime. 120 Tablet 0 Apixaban 5 MG Oral Tablet (Eliquis) Take 1 Tablet by mouth in the morning and 1 Tablet before bedtime. 180 Tablet 1 busPIRone HCl 15 MG Oral Tablet (Buspar) Take 1 Tablet by mouth in the morning and 1 Tablet at noonand 1 Tablet before bedtime. 270 Tablet 1 Carvedilol 12.5 MG Oral Tablet (Coreg) Take 1 Tablet by mouth in the morning and 1 Tablet before bedtime. with food. 180 Tablet 3 Clotrimazole 1 % Vaginal Cream Apply a pea sized dollop to vaginal entrance and labia at bedtime nightly 45 g 3 Colestipol HCl 1 GM Oral Tablet (Colestid) Take 2 Tablets by mouth in the morning and 2 Tablets before bedtime. Take extra table on days with diarrhea for max of 5 per day. 450 Tablet 3 Diphenoxylate-Atropine 2.5-0.025 MG Oral Tablet (Lomotil) Take 1 Tablet by mouth every 6 hours as needed for Diarrhea. 30 Tablet 1 Ferrous Sulfate 325 (65 Fe) MG Oral Tablet (Feosol) Take 1 Tablet by mouth daily with breakfast. Take 1 tab daily 180 Tablet 1 Gabapentin 400 MG Oral Capsule (Neurontin) Take 1 Capsule by mouth in the morning and 1 Capsule at noon and 1 Capsule before bedtime. 270 Capsule 1 Levothyroxine Sodium 125 MCG Oral Tablet (Levoxyl) Take 1 Tablet by mouth in the morning. (at least30 min prior to breakfast or other meds). 90 Tablet 1 Nystatin 540271 UNIT/GM External Powder (Nystop) Apply topically to affected area 3 times a day. Apply to abdominal folds 60 g 1 Pramipexole Dihydrochloride 0.25 MG Oral Tablet (Mirapex) TAKE 1 TABLET IN THE AFTERNOON AND 2 TABLETS AT BEDTIME 270 Tablet 3 Vitamin D (Ergocalciferol) 1.25 MG (66206 UT) Oral Capsule (Drisdol) TAKE 1 CAPSULE ONCE WEEKLY 12 Capsule 1 Bumetanide 1 MG Oral Tablet (Bumex) Take 1 Tablet by mouth in the morning and 1 Tablet before bedtime. 120 Tablet 3 Bumetanide 1 MG Oral Tablet Take extra as directed by Nephrology for fluid overload 60 Tablet 3 Nitrofurantoin Monohyd Macro 100 MG Oral Capsule (Macrobid) Take 1 Capsule by mouth in the morning and 1 Capsule before bedtime. Do all this for 7 days. With food until gone. 14 Capsule 0 metroNIDAZOLE 500 MG Oral Tablet Take 1 Tablet by mouth in the morning and 1 Tablet at noon and 1 Tablet before bedtime. Do all this for 10 days. 30 Tablet 0 No current facility-administered medications for this visit. Mobility Evaluation: MACH10 Assessment: Assistive Devices Used in the Home: Walker (standard or rollator) Recent Falls: Falls in the last 6 months: No Depression Screening: PHQ2 Depression Screening PHQ-2 & JOSE-2 assessment Social Determinants of Health Screening: SDAZ Screening Tool Social Determinants of Health Financial Resource Strain: Low Risk (11/09/2023) Financial Resource Strain Do you have any trouble paying for your medications, or do you think you might in the future? (Adult - for ages 18 years and over): No Does your family have trouble paying for medicine? (Household - for ages 0-17 years): Not on file Food Insecurity: No Food Insecurity (11/09/2023) Food Insecurity Do you need food for this week? (Adult - for ages 18 years and over): No Are you able to get enough food for your family? (Household - for ages 0-17 years): Not on file Does your family need food this week? (Household - for ages 0-17 years): Not on file Do you always have enough food for your family? (Household - for ages 0-17 years): Not on file Transportation Needs: Unmet Transportation Needs (11/09/2023) Transportation Needs Do you have trouble getting a ride to medical visits or work? (Adult - for ages 18 years and over):Sometimes True Does your family have a hard time getting a ride to doctors visits? (Household - for ages 0-17 years): Not on file Has lack of transportation kept you from medical appointments, meetings, work, or from getting things needed for daily living? Check all that apply. (Adult - for ages 18 years and over): Not on file Do you (or your family) have trouble finding or paying for a ride (transportation)? (Household - for ages 0-17 years): Not on file Social Connections: Socially Integrated (11/09/2023) Social Connections How often do you feel lonely or isolated from those around you? (Adult - for ages 18 years and over): Never Housing Stability: Low Risk (11/09/2023) Housing Stability Do you currently live in a [place] or have no steady place to sleep at night? (Adult - for ages 18 years and over): No Do you think you are at risk of becoming homeless? (Adult - for ages 18 years and over): No Does your family worry about paying for your home or becoming homeless? (Household - for ages 0-17 years): Not on file Are you homeless or worried that you might be in the future? (Adult - for ages 18 years and over): Not on file Are you (or your family) homeless or worried that you might be in the future? (Household - for ages0-17 years): Not on file Personal Safety: Low Risk (11/09/2023) Personal Safety Do you feel unsafe or have concerns for your safety? (Adult - for ages 18 years and over): No Do you have concerns for your family's safety? (Household - for ages 0-17 years): Not on file Childcare: Low Risk (11/09/2023) Childcare Do you feel overwhelmed with taking care of a child, family member or friend? (Adult - for ages 18 years and over): No Does your family need help finding childcare? (Household - for ages 0-17 years): Not on file Clothing: Low Risk (11/09/2023) Clothing Have you been unable to get clothing when it was really needed? (Adult - for ages 18 years and over): No Is your family able to get clothes or diapers when needed? (Household - for ages 0-17 years): Not on file Utilities: Not At Risk (11/09/2023) Utilities Do you have trouble paying your heating, water, or electric bill? (Adult - for ages 18 years and over): No Is your family able to pay the heat, water, or electric bill? (Household - for ages 0-17 years): Not on file Does your family have access to good internet? (Household - for ages 0-17 years): Not on file Employment Status: Low Risk (11/09/2023) Employment Status Are you unemployed or without regular income? (Adult - for ages 18 years and over): No Does the household have a regular source of income? (Household - for ages 0-17 years): Not on file Anne Cano PA-C 11:58 AM *Communication sent to PCP (via [email or web address] if non[facility]), Population Health Care Team members, relevant Specialty Care Physicians* documented in this encounter Plan of Treatment Upcoming Encounters Date Type Department Care Team (Late st Contact Info) Description 09/13/2024 9:30 AM EDT Telemedicine [facility], [place] [address] [place] [address] Anne Alcocer PA-C [address] [place] [address] Barbara Butt, Community Health Compositor Apprentice [address], [place] [id number] Scheduled Orders Name Type Priority Associated Diagnoses Orde r Schedule XR KNEE 3 VIEWS Medical Imaging Routine Acute pain of left knee Ordered: 08/02/2024 CBC WITH WBC DIFFERENTIAL AND ANEMIA REFLEX WORKUP Lab Routine Chronic diastolic heart failure with preserved ejection fraction (HCC) Hypertensive kidney disease with stage 3a chronic kidney disease Expected: 08/16/2024 (Approximate), Expires: 08/02/2025 COMPREHENSIVE METABOLIC PANEL Lab Routine Chronic diastolic heart failure with preserved ejection fraction (HCC) Hypertensive kidney disease with stage 3a chronic kidney disease Expected: 08/16/2024 (Approximate), Expires: 08/02/2025 MAGNESIUM Lab Routine Chronic diastolic heart failure with preserved ejection fraction (HCC) Hypertensive kidney disease with stage 3a chronic kidney disease Expected: 08/16/2024 (Approximate), Expires: 08/02/2025 PTH Lab Routine Chronic diastolic heart failure with preserved ejection fraction (HCC) Hypertensive kidney disease with stage 3a chronic kidney disease Expected: 08/16/2024 (Approximate), Expires: 08/02/2025 Scheduled Procedures Name Priority Associated Diagnoses Date/Ti me COLONOSCOPY FLEXIBLE PROXIMA L DIAGNOSTIC Recall Special screening for malignant neoplasms, colon Scheduled Referrals Name Type Priority Associated Diagnoses Orde r Schedule HOME PHLEBOTOMY REFERRAL OP Referral Within 30 days (routine) Chronic diastolic heart failure with preserved ejection fraction (HCC) Hypertensive kidney disease with stage 3a chronic kidney disease Ordered: 08/02/2024 Health Maintenance Due Date Last Done Comments [...] Additional history exists CKD PHOS USE SMARTSET 96785 08/25/202408/14, 09/30/2022, 04/03/2020, Additional history exists GFR 08/28/2024 02/27/2024, 10/15, 08/25/2023, Additional history exists Depression Monitoring 09/30/2024 09/30/2023 Albumin/Creatinine Ratio 01/06/2025 024, 11/02/2023, 08/18/2022, Additional history exists CKD HGB USE SMARTSET 84235 02/26/202502/26, 02/27/2024, 11/06/2023, Additional history exists TSH 02/26/2025 02/27/2024, 02/12, 01/19/2023, Additional history exists DTap/Tdap Vaccines (3 - Td or Tdap) 05/15/2032 05/15/2022, 04/03/2015, 05/03/2008, Additional history exists Pneumococcal Vaccine: 65+ Years Completed 01/02/2016, 05/03/2008 VITAMIN D LEVEL ONCE IN A LIFETIME-USE SMARTSET# 16054 Completed 02/27/2024, 01/19/2023, 05/27/2022, Additional history exists [...] encounter Medical Devices Implanted Type Area Field Manager Device Identifier Shelf Expiration Date Model / Serial / Lot Lens Intraoc 22.0 - [id number] - [id number] Implanted:Qty: 1 on 01/15/2020 by Delta Johansen MD at OR [facility] Left: Eye [employer] 09/13/2024 [id number] / [id number] / Lens Intraoc 22.0 - [id number] - [id number] Implanted:Qty: 1 on 01/22/2020 by Delta Johansen MD at OR [facility] Right: Eye [employer]OM[employer] 02/12/2024 [id number] / [id number] / [id number] documented as of this encounter Visit Diagnoses Diagnosis Acute pain of left knee- Primary Chronic diastolic heart failure with preserved ejection fraction (HCC) Lymphedema Other lymphedema Hypertensive kidney disease with stage 3a chronic kidney disease Recurrent UTI Urinary tract infection, site not specified documented in this encounter Care Teams Honey Processor Relationship Specialty Start Date End Date Lily Parham PA-C [address] [facility] [place] [address] PCP - General Physician Compositor Apprentice 07/20/24 documented as of this encounter"
--- OUTSIDE RECORDS SUMMARY | 2024-09-03 19:56 | External Medical Summary ---
Author Name Unknown Address Unknown Organization K01:LABORATORY [facility] [place] - [address] [place] [address] Laboratory Report Ordering Provider Test Date Status PARISH COREY 08/16/2024 09:14:00 Final Observation Date Value Abnormality Reference (Units ) Status Folic Acid 08/16/2024 09:14:00 9.1 >4.5 (ng/ mL) Final Performing Location LABORATORY C - [address] [place] [id number]
--- OUTSIDE RECORDS SUMMARY | 2024-09-03 19:56 | External Medical Summary ---
Author Name Unknown Address Unknown Organization K01[place] [facility] [place] [facility] [address] [place] [address] Laboratory Report Ordering Provider Test Date Status PARISH COREY 08/16/2024 09:14:00 Final Observation Date Value Abnormality Reference (Units ) Status Retic, % (auto) 08/16/2024 09:14:00 1.45 0.80-1.90 (%) Final Reticulocytes, Absolute 08/16/2024 09:14:00 53.1 31.3-100.1 (K/uL) Final Reticulocyte fraction, immature 08/16/2024 09:14:00 11.1 2.5-20.6 (%) Final Reticulocyte HGB 08/16/2024 09:14:00 33.8 29.7-37.4 (pg) Final Performing Location [place] [facility] [place] [address] [place] [address]
--- OUTSIDE RECORDS SUMMARY | 2024-09-03 19:56 | External Medical Summary | Summary of Care ---
Author Name Unknown Organization [facility] Address [address] [place] [address] Phone [phone] Care Team Providers Care Data Scientist Name Role Phone Lily Parham PA-C Primary Care Provider +1 [phone] Reason for Visit * Reason Onset Date Comments Health Maintenance 08/09/2024 Encounter Details Date Type Department Care Team (Late st Contact Info) Description 08/09/[address] [facility] [address] [place] [address] Lily Parham PA-C [address] [place] [address] Health Maintenance Allergies No known [...] meds). 90 Tablet 1 06/21/2024 Active Nystatin 006483 UNIT/GM External Powder (Nystop) Apply topically to affected area 3 times a day. Apply to abdominal folds 60 g 1 06/21/2024 Active Pramipexole Dihydrochloride 0.25 MG Oral Tablet (Mirapex)Indications: Restless legs syndrome TAKE 1 TABLET IN THE AFTERNOON AND 2 TABLETS AT BEDTIME 270 Tablet 3 06/21/2024 Active Vitamin D (Ergocalciferol) 1.25 MG (09398 UT) Oral Capsule (Drisdol) TAKE 1 CAPSULE [...] ( season) 2024 CKD PHOS USE SMARTSET 99635 08/25/2024 GFR 08/28/2024 Depression Monitoring 09/30/2024 Dexa Awv Labs already ordered add phos ov Care Gap Outreach Action Taken: Left message documented in this encounter Plan of Treatment Upcoming Encounters Date Type Department Care Team (Late st Contact Info) Description 08/16/2024 7:10 AM EDT Laboratory Lab Mobile Phlebotomy [facility] [address] [place] [place] [address] [facility], [facility] Mobile Home Draw [address] [place] [address] 09/13/2024 9:30 AM EDT Telemedicine [facility] [place] [address] [place] [address] Anne Alcocer PA-C [address] [place] [address] Barbara Butt, Community Health Contact Center Director [address] [place] [address] Scheduled Procedures Name Priority Associated Diagnoses Date/Ti [...] Additional history exists CKD PHOS USE SMARTSET 19012 08/25/202408/14, 09/30/2022, 04/03/2020, Additional history exists GFR 08/28/2024 02/27/2024, 10/15, 08/25/2023, Additional history exists Depression Monitoring 09/30/2024 09/30/2023 Albumin/Creatinine Ratio 01/06/2025 024, 11/02/2023, 08/18/2022, Additional history exists CKD HGB USE SMARTSET 44237 02/26/202502/26, 02/27/2024, 11/06/2023, Additional history exists TSH 02/26/2025 02/27/2024, 02/12, 01/19/2023, Additional history exists DTap/Tdap Vaccines (3 - Td or Tdap) 05/15/2032 05/15/2022, 04/03/2015, 05/03/2008, Additional history exists Pneumococcal Vaccine: 65+ Years Completed 01/02/2016, 05/03/2008 VITAMIN D LEVEL ONCE IN A LIFETIME-USE SMARTSET# 42983 Completed 02/27/2024, 01/19/2023, 05/27/2022, Additional history exists [...] this encounter Medical Devices Implanted Type Area Animal Assistant Device Identifier Shelf Expiration Date Model / Serial / Lot Lens Intraoc 22.0 - [id number] - [id number] Implanted:Qty: 1 on 01/15/2020 by Delta Johansen MD at OR [facility] Left: Eye BAUSCH [employer] LOMB 09/13/2024 [id number] / [id number] / Lens Intraoc 22.0 - [id number] - [id number] Implanted:Qty: 1 on 01/22/2020 by Delta Johansen MD at OR [facility] Right: Eye BAUSCH & LOMB 02/12/2024 [id number] / [id number] / [id number] documented as of this encounter Care Teams Data Scientist Relationship Specialty Start Date End Date Lily Parham PA-C [facility] [address] [facility] [place] [address] PCP - General Physician Contact Center Director 07/20/24 documented as of this encounter
--- OUTSIDE RECORDS SUMMARY | 2024-09-03 19:56 | External Medical Summary | Summary of Care ---
Author Name Unknown Organization [facility] Address [address] [place] [address] Phone [phone] Care Team Providers Care Polymerization Oven Operator Name Role Phone Lily Parham PA-C Primary Care Provider +1 [phone] Encounter Details Date Type Department Care Team (Late st Contact Info) Description 08/02/2024 Telephone [facility] [address] [place] [address] Lily Parham PA-C [address] [place] [address] Allergies No known active allergiesdocumented as of [...] meds). 90 Tablet 1 06/21/2024 Active Nystatin 122442 UNIT/GM External Powder (Nystop) Apply topically to affected area 3 times a day. Apply to abdominal folds 60 g 1 06/21/2024 Active Pramipexole Dihydrochloride 0.25 MG Oral Tablet (Mirapex)Indications: Restless legs syndrome TAKE 1 TABLET IN THE AFTERNOON AND 2 TABLETS AT BEDTIME 270 Tablet 3 06/21/2024 Active Vitamin D (Ergocalciferol) 1.25 MG (84640 UT) Oral Capsule (Drisdol) TAKE 1 CAPSULE [...] mRNA, LNP-s, No Pre serve, 2-Dose Series ([facility]) 11/10/2021,01/21/2021,12/31/2020 Pneumococcal Conjugate Vacc, 13 Valent (Prevnar) [...] encounter Miscellaneous Notes * Telephone Encounter - Priscila Chu LPN - 08/02/2024 4:23 PM EDT [email or web address] form has been faxed to [phone] on 08/02. documented in this encounter Plan of Treatment Upcoming Encounters Date Type Department Care Team (Late st Contact Info) Description 09/13/2024 9:30 AM EDT [facility] [address] [place] [address] Anne Alcocer PA-C [address] [place] [address] Barbara Butt, Community Health Biological Science Aide [address] [place] [address] Scheduled Procedures Name Priority Associated Diagnoses Date/Ti [...] Additional history exists CKD PHOS USE SMARTSET 56829 08/25/202408/14, 09/30/2022, 04/03/2020, Additional history exists GFR 08/28/2024 02/27/2024, 10/15, 08/25/2023, Additional history exists Depression Monitoring 09/30/2024 09/30/2023 Albumin/Creatinine Ratio 01/06/2025 024, 11/02/2023, 08/18/2022, Additional history exists CKD HGB USE SMARTSET 92937 02/26/202502/26, 02/27/2024, 11/06/2023, Additional history exists TSH 02/26/2025 02/27/2024, 02/12, 01/19/2023, Additional history exists DTap/Tdap Vaccines (3 - Td or Tdap) 05/15/2032 05/15/2022, 04/03/2015, 05/03/2008, Additional history exists Pneumococcal Vaccine: 65+ Years Completed 01/02/2016, 05/03/2008 VITAMIN D LEVEL ONCE IN A LIFETIME-USE SMARTSET# 86737 Completed 02/27/2024, 01/19/2023, 05/27/2022, Additional history exists [...] this encounter Medical Devices Implanted Type Area Farm Management Adviser Device Identifier Shelf Expiration Date Model / Serial / Lot Lens Intraoc 22.0 - [id number] - [id number] Implanted:Qty: 1 on 01/15/2020 by Delta Johansen MD at OR [facility] Left: Eye BAUSCH & LOMB 09/13/2024 [id number] / [id number] / Lens Intraoc 22.0 - [id number] - [id number] Implanted:Qty: 1 on 01/22/2020 by HailyDelta johnson MD at [facility] Right: Eye BAUSCH & LOMB 02/12/2024 [id number] / [id number] / [id number] documented as of this encounter Care Teams Polymerization Oven Operator Relationship Specialty Start Date End Date Lily Parham PA-C [address] [place] [id number] PCP - General Physician Biological Science Aide 07/20/24 documented as of this encounter
--- OUTSIDE RECORDS SUMMARY | 2024-09-03 19:57 | External Medical Summary | Summary of Care ---
Author Name Unknown Organization [facility] Address [address] [place] [address] Phone [phone] Care Team Providers Care Supervisor Name Role Phone Lily Parham PA-C Primary Care Provider +1 [phone] Reason for Visit * Reason Comments Outpatient Testing Encounter Details Date Type Department Care Team (Late st Contact Info) Description 07/27/2024 10:20 AM EDT Laboratory [facility], [facility] [address] [facility] [address] [facility] [address] [facility] [place] [id number] Dysuria Allergies No known active allergiesdocumented as of this encounter (statuses as of 07/27/2024) Medications Medication Sig Dispensed Refills Start Date [...] meds). 90 Tablet 1 06/21/2024 Active Nystatin 344649 UNIT/GM External Powder (Nystop) Apply topically to affected area 3 times a day. Apply to abdominal folds 60 g 1 06/21/2024 Active Pramipexole Dihydrochloride 0.25 MG Oral Tablet (Mirapex)Indications: Restless legs syndrome TAKE 1 TABLET IN THE AFTERNOON AND 2 TABLETS AT BEDTIME 270 Tablet 3 06/21/2024 Active Vitamin D (Ergocalciferol) 1.25 MG (08152 UT) Oral Capsule (Drisdol) TAKE 1 CAPSULE [...] as of this encounter (statuses as of 07/27/2024) Active Problems Problem Noted Date Diagnosed Date [...] as of this encounter (statuses as of 07/27/2024) Resolved Problems Problem Noted Date Diagnosed Date [...] as of this encounter (statuses as of 07/27/2024) Immunizations Name Administration Dates Next Due COVID-19 mRNA, LNP-s, No Pre serve, 2-Dose Series ([employer]) 11/10/2021,01/21/2021,12/31/2020 Pneumococcal Conjugate Vacc, 13 Valent (Prevnar) [...] on file documented as of this encounter Plan of Treatment Upcoming Encounters Date Type Department Care Team (Late st Contact Info) Description 08/02/2024 12:00 PM EDT Telemedicine [facility] [place], [address] [address] Anne Alcocer PA-C [address] [place] [address] Barbara Butt, Community Health Farm Assistant [address] [place] [address] Pending Results Name Type Priority Associated Diagnoses Date /Time URINALYSIS, REFLEX TO CULTURE (NOT FOR NEUTROPENIC PATIENTS) Lab STAT Dysuria 07/27/2024 8:30 AM EDT URINALYSIS, REFLEX TO CULTURE (CUP ONLY) Lab STAT Dysuria 07/27/2024 8:30 AM EDT URINALYSIS, REFLEX TO CULTURE Lab STAT Dysuria 07/27/2024 8:30 AM EDT Scheduled Procedures Name Priority Associated Diagnoses Date/Ti [...] Additional history exists CKD PHOS USE SMARTSET 13415 08/25/202408/14, 09/30/2022, 04/03/2020, Additional history exists GFR 08/28/2024 02/27/2024, 10/15, 08/25/2023, Additional history exists Depression Monitoring 09/30/2024 09/30/2023 Albumin/Creatinine Ratio 01/06/2025 024, 11/02/2023, 08/18/2022, Additional history exists CKD HGB USE SMARTSET 97014 02/26/202502/26, 02/27/2024, 11/06/2023, Additional history exists TSH 02/26/2025 02/27/2024, 02/12, 01/19/2023, Additional history exists DTap/Tdap Vaccines (3 - Td or Tdap) 05/15/2032 05/15/2022, 04/03/2015, 05/03/2008, Additional history exists Pneumococcal Vaccine: 65+ Years Completed 01/02/2016, 05/03/2008 VITAMIN D LEVEL ONCE IN A LIFETIME-USE SMARTSET# 24873 Completed 02/27/2024, 01/19/2023, 05/27/2022, Additional history exists [...] this encounter Medical Devices Implanted Type Area Information Systems Analyst Device Identifier Shelf Expiration Date Model / Serial / Lot Lens Intraoc 22.0 - [id number] - [id number] Implanted:Qty: 1 on 01/15/2020 by Delta Johansen MD at OR [facility] Left: Eye BAUSCH & LOMB 09/13/2024 [id number] / [id number] / Lens Intraoc 22.0 - [id number] - [id number] Implanted:Qty: 1 on 01/22/2020 by Delta Johansen MD at OR [facility] Right: Eye BAUSCH & LOMB 02/12/2024 [id number] / [id number] / [id number] documented as of this encounter Visit Diagnoses Diagnosis Dysuria documented in this encounter Care Teams Supervisor Relationship Specialty Start Date End Date Lily Parham PA-C [address] [facility] [place] [address] PCP - General Physician Farm Assistant 07/20/24 documented as of this encounter
--- OUTSIDE RECORDS SUMMARY | 2024-09-03 19:57 | External Medical Summary | Summary of Care ---
Author Name Unknown Organization [facility] Address [address] [place] [address] Phone [phone] Care Team Providers Care Funeral Planner Name Role Phone Lily Parham PA-C Primary Care Provider [phone] [phone] Encounter Details Date Type Department Care Team (Late st Contact Info) Description 07/26/2024 [facility] [place] [address] [place] [address] Anne Alcocer PA-C [address] [place] [address] Dysuria* Allergies No known active allergiesdocumented as of this encounter (statuses as of 07/26/2024) Medications Medication Sig Dispensed Refills Start Date [...] meds). 90 Tablet 1 06/21/2024 Active Nystatin 453251 UNIT/GM External Powder (Nystop) Apply topically to affected area 3 times a day. Apply to abdominal folds 60 g 1 06/21/2024 Active Pramipexole Dihydrochloride 0.25 MG Oral Tablet (Mirapex)Indications: Restless legs syndrome TAKE 1 TABLET IN THE AFTERNOON AND 2 TABLETS AT BEDTIME 270 Tablet 3 06/21/2024 Active Vitamin D (Ergocalciferol) 1.25 MG (45854 UT) Oral Capsule (Drisdol) TAKE 1 CAPSULE [...] as of this encounter (statuses as of 07/26/2024) Active Problems Problem Noted Date Diagnosed Date [...] as of this encounter (statuses as of 07/26/2024) Resolved Problems Problem Noted Date Diagnosed Date [...] as of this encounter (statuses as of 07/26/2024) Immunizations Name Administration Dates Next Due COVID-19 [...] Info) Description 08/02/2024 12:00 PM EDT Telemedicine [facility] [place], [address] [place] [address] Anne Alcocer PA-C [address] [place] [address] Barbara Butt, Community Health Behavior Specialist [address] [place] [address] Scheduled Orders Name Type Priority Associated Diagnoses Orde r Schedule URINALYSIS, REFLEX TO CULTURE (NOT FOR NEUTROPENIC PATIENTS) Lab STAT Dysuria Expected: 07/26/2024, Expires: 07/26/2025 Scheduled Procedures Name Priority Associated Diagnoses Date/Ti [...] Additional history exists CKD PHOS USE SMARTSET 38670 08/25/202408/14, 09/30/2022, 04/03/2020, Additional history exists GFR 08/28/2024 02/27/2024, 10/15, 08/25/2023, Additional history exists Depression Monitoring 09/30/2024 09/30/2023 Albumin/Creatinine Ratio 01/06/2025 024, 11/02/2023, 08/18/2022, Additional history exists CKD HGB USE SMARTSET 49400 02/26/202502/26, 02/27/2024, 11/06/2023, Additional history exists TSH 02/26/2025 02/27/2024, 02/12, 01/19/2023, Additional history exists DTap/Tdap Vaccines (3 - Td or Tdap) 05/15/2032 05/15/2022, 04/03/2015, 05/03/2008, Additional history exists Pneumococcal Vaccine: 65+ Years Completed 01/02/2016, 05/03/2008 VITAMIN D LEVEL ONCE IN A LIFETIME-USE SMARTSET# 14627 Completed 02/27/2024, 01/19/2023, 05/27/2022, Additional history exists [...] this encounter Medical Devices Implanted Type Area Heel Molder Device Identifier Shelf Expiration Date Model / Serial / Lot Lens Intraoc 22.0 - [id number] - [id number] Implanted:Qty: 1 on 01/15/2020 by Delta Johansen MD at OR [facility] Left: Eye BAUSCH & LOMB 09/13/2024 [id number] / [id number] / Lens Intraoc 22.0 - [id number] - [id number] Implanted:Qty: 1 on 01/22/2020 by Delta Johansen MD at OR [facility] Right: Eye BAUSCH & LOMB 02/12/2024 [id number] / [id number] / [id number] documented as of this encounter Visit Diagnoses Diagnosis Dysuria- Primary documented in this encounter Care Teams Funeral Planner Relationship Specialty Start Date End Date [facility]C [address] [facility] [address] PCP - General Physician Behavior Specialist 07/20/24 documented as of this encounter
--- OUTSIDE RECORDS SUMMARY | 2024-09-03 19:57 | External Medical Summary | Summary of Care ---
Author Name Unknown Organization [facility] Address [address] [place] [address] Phone [phone] Care Team Providers Care First Grade Teacher Name Role Phone Lily Parham PA-C Primary Care Provider [phone] [phone] Reason for Visit * Reason Onset Date Comments Test Results 07/27/2024 Encounter Details Date Type Department Care Team ([facility] st Contact Info) Description 07/27/2024 Telephone [facility], [place] [address] [place] [address] Anne Alcocer PA-C [address] [place] [address] Test Results Allergies No known [...] meds). 90 Tablet 1 06/21/2024 Active Nystatin 554078 UNIT/GM External Powder (Nystop) Apply topically to affected area 3 times a day. Apply to abdominal folds 60 g 1 06/21/2024 Active Pramipexole Dihydrochloride 0.25 MG Oral Tablet (Mirapex)Indications: Restless legs syndrome TAKE 1 TABLET IN THE AFTERNOON AND 2 TABLETS AT BEDTIME 270 Tablet 3 06/21/2024 Active Vitamin D (Ergocalciferol) 1.25 MG (66377 UT) Oral Capsule (Drisdol) TAKE 1 CAPSULE ONCE WEEKLY 12 Capsule 1 06/21/2024 Active Bumetanide 1 MG Oral Tablet (Bumex) Take 1 Tablet by mouth in the morning and 1 Tablet before bedtime. 120 Tablet 3 06/21/2024 Active Bumetanide 1 MG Oral Tablet Take extra as directed by Nephrology for fluid overload 60 Tablet 3 06/21/2024 Active Nitrofurantoin Monohyd Macro 100 MG Oral Capsule (Macrobid) Take 1 Capsule by mouth in the morning and 1 Capsule before bedtime. Do all this for 7 days. With food until gone. 14 Capsule 07/27/2024 4 Active metroNIDAZOLE 500 MG Oral Tablet Take 1 Tablet by mouth in the morning and 1 Tablet at noon and 1 Tablet before bedtime. Do all this for 10 days. 30 Tablet 07/27/2024 4 Active documented as of this encounter [...] mRNA, LNP-s, No Pre serve, 2-Dose Series ([employer]) 11/10/2021,01/21/2021,12/31/2020 Pneumococcal Conjugate Vacc, 13 Valent (Prevnar) [...] Telephone Encounter - Anne Alcocer PA-C - 07/27/2024 10:46 AM EDT Called patient with urine results. Notable UTI, culture pending. She tends to get diarrhea with antibiotic use and requests Flagyl to be sent as well. Will send Macrobid, advised to not take the Flagyl unless she gets diarrhea. Will follow up on the urine culture results. documented in this encounter Plan of Treatment Upcoming Encounters Date Type Department Care Team (Late st Contact Info) Description 08/02/2024 12:00 PM EDT Telemedicine [facility] [address] [place] [address] Anne Alcocer PA-C [address] [place] [address] Barbara Butt, Community Health Lockstitch Back Maker [address] [place] [address] Scheduled Procedures Name Priority Associated Diagnoses Date/Ti [...] Additional history exists CKD PHOS USE SMARTSET 90322 08/25/202408/14, 09/30/2022, 04/03/2020, Additional history exists GFR 08/28/2024 02/27/2024, 10/15, 08/25/2023, Additional history exists Depression Monitoring 09/30/2024 09/30/2023 Albumin/Creatinine Ratio 01/06/2025 024, 11/02/2023, 08/18/2022, Additional history exists CKD HGB USE SMARTSET 16828 02/26/202502/26, 02/27/2024, 11/06/2023, Additional history exists TSH 02/26/2025 02/27/2024, 02/12, 01/19/2023, Additional history exists DTap/Tdap Vaccines (3 - Td or Tdap) 05/15/2032 05/15/2022, 04/03/2015, 05/03/2008, Additional history exists Pneumococcal Vaccine: 65+ Years Completed 01/02/2016, 05/03/2008 VITAMIN D LEVEL ONCE IN A LIFETIME-USE SMARTSET# 45199 Completed 02/27/2024, 01/19/2023, 05/27/2022, Additional history exists [...] this encounter Medical Devices Implanted Type Area Perfect Bind Machine Operator Device Identifier Shelf Expiration Date Model / Serial / Lot Lens Intraoc 22.0 - [id number] - [id number] Implanted:Qty: 1 on 01/15/2020 by Delta Johansen MD at OR [facility] Left: Eye BAUSCH & LOMB 09/13/2024 [id number] / [id number] / Lens Intraoc 22.0 - [id number] - [id number] Implanted:Qty: 1 on 01/22/2020 by Delta Johansen MD at OR [facility] Right: Eye BAUSCH & LOMB 02/12/2024 [id number] / [id number] / [id number] documented as of this encounter Care Teams First Grade Teacher Relationship Specialty Start Date End Date Lily Parham PA-C [address] [facility] [place] [address] PCP - General Physician Lockstitch Back Maker 07/20/24 documented as of this encounter
--- OUTSIDE RECORDS SUMMARY | 2024-09-03 19:57 | External Medical Summary | Summary of Care ---
Author Name Unknown Organization [facility] Address [address] [place] [address] Phone [phone] Care Team Providers Care Clinical Nurse Leader Name Role Phone Lily Parham PA-C Primary Care Provider [phone] Encounter Details Date Type Department Care Team (Late st Contact Info) Description 07/27/2024 8:50 AM EDT Home Visit Care Coordination and Integration [address] [place], [place] [id number] Barbara Butt, Community Health Hand Picker [address] [place] [address] Allergies No known active allergiesdocumented as of [...] meds). 90 Tablet 1 06/21/2024 Active Nystatin 269118 UNIT/GM External Powder (Nystop) Apply topically to affected area 3 times a day. Apply to abdominal folds 60 g 1 06/21/2024 Active Pramipexole Dihydrochloride 0.25 MG Oral Tablet (Mirapex)Indications: Restless legs syndrome TAKE 1 TABLET IN THE AFTERNOON AND 2 TABLETS AT BEDTIME 270 Tablet 3 06/21/2024 Active Vitamin D (Ergocalciferol) 1.25 MG (77535 UT) Oral Capsule (Drisdol) TAKE 1 CAPSULE [...] mRNA, LNP-s, No Pre serve, 2-Dose Series (Zendrive) 11/10/2021,01/21/2021,12/31/2020 Pneumococcal Conjugate Vacc, 13 Valent (Prevnar) [...] on file documented as of this encounter Progress Notes * Barbara Butt, Community Health Hand Picker - 07/27/2024 9:22 AM EDT Telemedicine visit: No Community Health Hand Picker (JOHN) documentation: Chw collected urine specimen and took to [facility] lab location Barbara Butt Community Health Worker documented in this encounter Plan of Treatment Upcoming Encounters Date Type Department Care Team (Late st Contact Info) Description 08/02/2024 12:00 PM EDT Telemedicine [facility], [place] [address] [place] [address] Anne Alcocer PA-C [address] [place] [address] Barbara Butt, Community Health Hand Picker [address] [place] [address] Scheduled Procedures Name Priority Associated [...] Additional history exists CKD PHOS USE SMARTSET 56649 08/25/202408/14, 09/30/2022, 04/03/2020, Additional history exists GFR 08/28/2024 02/27/2024, 10/15, 08/25/2023, Additional history exists Depression Monitoring 09/30/2024 09/30/2023 Albumin/Creatinine Ratio 01/06/2025 024, 11/02/2023, 08/18/2022, Additional history exists CKD HGB USE SMARTSET 46692 02/26/202502/26, 02/27/2024, 11/06/2023, Additional history exists TSH 02/26/2025 02/27/2024, 02/12, 01/19/2023, Additional history exists DTap/Tdap Vaccines (3 - Td or Tdap) 05/15/2032 05/15/2022, 04/03/2015, 05/03/2008, Additional history exists Pneumococcal Vaccine: 65+ Years Completed 01/02/2016, 05/03/2008 VITAMIN D LEVEL ONCE IN A LIFETIME-USE SMARTSET# 01451 Completed 02/27/2024, 01/19/2023, 05/27/2022, Additional history exists [...] this encounter Medical Devices Implanted Type Area Marketing Program Manager Device Identifier Shelf Expiration Date Model / Serial / Lot Lens Intraoc 22.0 - [id number] - [id number] Implanted:Qty: 1 on 01/15/2020 by Delta Johansen MD at OR [facility] Left: Eye BAUSCH & LOMB 09/13/2024 [id number] / [id number] / Lens Intraoc 22.0 - [id number] - [id number] Implanted:Qty: 1 on 01/22/2020 by Delta Johansen MD at OR [facility] Right: Eye BAUSCH & LOMB 02/12/2024 [id number] / [id number] documented as of this encounter Care Teams Clinical Nurse Leader Relationship Specialty Start Date End Date Lily Parham PA-C [address] [place] [address] PCP - General Physician Hand Picker 07/20/24 documented as of this encounter
--- OUTSIDE RECORDS SUMMARY | 2024-09-03 19:57 | External Medical Summary | Summary of Care ---
Author Name Unknown Organization [facility] Address [address] [place] [address] Phone [phone] Care Team Providers Care Senior Health Consultant Name Role Phone Tristan Conde MD Primary Care Provider [phone]- [phone] Encounter Details Date Type Department Care Team (Late st Contact Info) Description 06/21/2024 2:30 PM EDT Telemedicine [facility] [address] at [facility] [address] [place] [address] Anne Alcocer PA-C [address] [place] [address] Barbara Butt, Community Health [employer] Set Up Operator [address] [place], [place] [id number] Chronic diastolic heart failure with preserved ejection fraction (HCC)*; Vagina itching; Irritable bowel syndrome with diarrhea; Diarrhea, unspecified type; Arthralgia, unspecified joint; Other specified hypothyroidism; Restless legs syndrome; Hypertensive kidney disease with stage 3a chronic kidney disease; Lymphedema Allergies No known active allergiesdocumented as of this encounter (statuses as of 06/22/2024) Medications Medication Sig Dispensed Refills Start Date [...] Tablet before bedtime. 120 Tablet 4 Active Potassium Chloride Kadie ER 20 MEQ Oral Tablet Extended Release Take 1 Tablet by mouth in the morning and 1 Tablet before bedtime. 180 Tablet 3 4 07/22/20 24 Active Apixaban 5 MG Oral Tablet (Eliquis) [...] meds). 90 Tablet 1 4 Active Nystatin 597712 UNIT/GM External Powder (Nystop) Apply topically to affected area 3 times a day. Apply to abdominal folds 60 g 1 4 Active Pramipexole Dihydrochloride 0.25 MG Oral Tablet (Mirapex)Indications :Restless legs syndrome TAKE 1 TABLET IN THE AFTERNOON AND 2 TABLETS AT BEDTIME 270 Tablet 3 4 Active Vitamin D (Ergocalciferol) 1.25 MG (45341 UT) Oral Capsule (Drisdol) TAKE 1 CAPSULE ONCE WEEKLY 12 Capsule 1 4 Active Bumetanide 1 MG Oral Tablet (Bumex) Take 1 Tablet by mouth in the morning and 1 Tablet before bedtime. 120 Tablet 3 4 Active Bumetanide 1 MG Oral Tablet Take extra as directed by Nephrology for fluid overload 60 Tablet 3 4 Active ferrous sulfate (FEOSOL) 325 (65 FE) MG Tablet Take 1 tab twice per day 180 Tab 1 0 06/21/20 24 Discontinu ed(Refill) Bumetanide 1 MG Oral Tablet (Bumex) Take 1 Tablet by mouth in the morning and 1 Tablet before bedtime. 06/21/20 24 Discontinu ed(Refill) Carvedilol 12.5 MG Oral Tablet (Coreg) Take 1 Tablet by mouth in the morning and 1 Tablet before bedtime. with food. 180 Tablet 3 4 06/21/20 24 Discontinu ed(Refill) busPIRone HCl 15 MG Oral Tablet (Buspar) Take 1 Tablet by mouth in the morning and 1 Tablet at noon and 1 Tablet before bedtime. 270 Tablet 1 4 06/21/20 24 Discontinu ed(Refill) Gabapentin 400 MG Oral Capsule (Neurontin)Indicatio ns:Arthralgia, unspecified joint Take 1 Capsule by mouth in the morning and 1 Capsule at noon and 1 Capsule before bedtime. 270 Capsule 1 4 06/21/20 24 Discontinu ed(Refill) Colestipol HCl 1 GM Oral Tablet (Colestid)Indication s:Irritable bowel syndrome with diarrhea Take 2 Tablets by mouth in the morning and 2 Tablets before bedtime. Take extra table on days with diarrhea for max of 5 per day. 450 Tablet 3 4 06/21/20 24 Discontinu ed(Refill) Apixaban 5 MG Oral Tablet (Eliquis) Take 1 Tablet by mouth in the morning and 1 Tablet before bedtime. 180 Tablet 1 4 06/21/20 24 Discontinu ed(Refill) Levothyroxine Sodium 125 MCG Oral Tablet (Levoxyl)Indications :Other specified hypothyroidism Take 1 Tablet by mouth in the morning. (at least 30 min prior to breakfast or other meds). 90 Tablet 1 4 06/21/20 24 Discontinu ed(Refill) Clotrimazole 1 % Vaginal CreamIndications:Vag luisa itching Apply a pea sized dollop to vaginal entrance and labia at bedtime nightly 45 g 3 4 06/21/20 24 Discontinu ed(Refill) Nystatin 197086 UNIT/GM External Powder (Nystop) Apply topically to affected area 3 times a day. Apply to abdominal folds 60 g 1 4 06/21/20 24 Discontinu ed(Refill) Pramipexole Dihydrochloride 0.25 MG Oral Tablet (Mirapex)Indications :Restless legs syndrome TAKE 1 TABLET IN THE AFTERNOON AND 2 TABLETS AT BEDTIME 270 Tablet 3 4 06/21/20 24 Discontinu ed(Refill) Diphenoxylate-Atropi ne 2.5-0.025 MG Oral Tablet (Lomotil)Indications :Diarrhea, unspecified type Take 1 Tablet by mouth every 6 hours as needed for Diarrhea. 30 Tablet 1 4 06/21/20 24 Discontinu ed(Refill) Vitamin D (Ergocalciferol) 1.25 MG (48850 UT) Oral Capsule (Drisdol) TAKE 1 CAPSULE ONCE WEEKLY 12 Capsule 1 4 06/21/20 24 Discontinu ed(Refill) documented as of this encounter (statuses as of 06/22/2024) Active Problems Problem Noted Date Diagnosed Date [...] of total days, AHI 4.9, pressures 7-11. 4 PSG -- RDI 12.5, hypoxia, significant PLMD, [...] as of this encounter (statuses as of 06/22/2024) Resolved Problems Problem Noted Date Diagnosed Date [...] as of this encounter (statuses as of 06/22/2024) Immunizations Name Administration Dates Next Due COVID-19 mRNA, LNP-s, No Pre serve, 2-Dose Series ([employer]) 11/10/2021,01/21/2021,12/31/2020 Pneumococcal Conjugate Vacc, 13 Valent (Prevnar) 01/02/2016 Pneumococcal Polysaccharide PPV23 (Pneumovax) 05/03/2008 Seasonal Influenza Virus Vac cine, Unspecified Formulation 08/18/2022,09/06/2019,09/10/2003,08/14 Seasonal Influenza, PF, 6 M & above, IM , (FluLaval or Fluzone) 08/25/2021,08/14/2020,09/06/2019,08/14,08/24/2017 Seasonal Influenza, Quadriva lent Hd (Fluzone Hd) 07/27/2023,08/18/2022 Seasonal Influenza, Quadriva lent Hd, 65+ Yrs 09/03/2020 Seasonal Influenza, Quadriva lent, No Preserve, IM 09/06/2016,09/01/2015 09/01/2016 Seasonal Influenza, Split, I IV3, With Preserve, Inj 11/11/2014,10/24/2009(Deferred: Patient Refused) TD - Tetanus/Diptheria (ADULT) [...] Sign Reading Time Taken Comments Blood Pressure 135/80 06/21/2024 2:17 PM EDT Pulse 68 06/21/2024 2:17 PM EDT Temperature 36.9 C (98.4 F) 06/21/2024 2:17 PM ED T Respiratory Rate - - Oxygen Saturation 96% 06/21/2024 2:17 PM EDT Inhaled Oxygen Concentration - - Weight - - Height - - Body Mass Index - - documented in this encounter Progress Notes * Anne Alcocer PA-C - 06/21/2024 2:26 PM EDT [facility] Provider Telemedicine Visit Date: 06/21/2024 Time: 2:26 PM Assessment/Plan: 1. Vagina itching - Clotrimazole 1 % Vaginal Cream; Apply a pea sized dollop to vaginal entrance and labia at bedtimenightly Dispense: 45 g; Refill: 3 2. Irritable bowel syndrome with diarrhea - Colestipol HCl 1 GM Oral Tablet (Colestid); Take 2 Tablets by mouth in the morning and 2 Tablets before bedtime. Take extra table on days with diarrhea for max of 5 per day. Dispense: 450 Tablet; Refill: 3 3. Diarrhea, unspecified type - Diphenoxylate-Atropine 2.5-0.025 MG Oral Tablet (Lomotil); Take 1 Tablet by mouth every 6 hours as needed for Diarrhea. Dispense: 30 Tablet; Refill: 1 4. Arthralgia, unspecified joint - Gabapentin 400 MG Oral Capsule (Neurontin); Take 1 Capsule by mouth in the morning and 1 Capsule at noon and 1 Capsule before bedtime. Dispense: 270 Capsule; Refill: 1 5. Other specified hypothyroidism - Levothyroxine Sodium 125 MCG Oral Tablet (Levoxyl); Take 1 Tablet by mouth in the morning. (at least 30 min prior to breakfast or other meds). Dispense: 90 Tablet; Refill: 1 6. Restless legs syndrome - Pramipexole Dihydrochloride 0.25 MG Oral Tablet (Mirapex); TAKE 1 TABLET IN THE AFTERNOON AND 2 TABLETS AT BEDTIME Dispense: 270 Tablet; Refill: 3 7. Chronic diastolic heart failure with preserved ejection fraction (HCC) Stable Difficult to assess fluid overload due to chronic lymphedema 8. Hypertensive kidney disease with stage 3a chronic kidney disease Stable on last labs in 02/2024 Following with Nephrology 9. Lymphedema Follow up plan: Patient is homebound and unable to get out for visits at this time. She continues to struggle with lymphedema and chronic open wounds to the LE's. No S/S of cellulitis noted today. She has [facility] coming to the house for wound care. They recommended ISAIAS boots. The patient has had these in the past with relief in symptoms. Will reach out to CM to help facilitate that order. She requested multiple refills of medications. She discontinued use of the oxycodone and Klonopin on her own over the last couple months. No withdrawal symptoms. A total of 45 minutes was spent face to face via video-based telemedicine. Subjective Patient location: HOME. I was not in a hospital or clinic location. After connecting through televideo, patient was verified with two unique identifiers. Patient (or authorized legal chemical sales representative) was then informed that this was a Telemedicine visit and being conducted confidentially over secure lines. Methods to assure confidentiality were taken. Patient acknowledged consent and understanding of privacy and security of the Telemedicine visit. The patient agreed to participate. Reason for Visit: Follow-Up Current Concerns: Asuncion Garcia is a 79 year old female seen today for a [facility] Telemedicine Provider Visit. Date of last known acute care visit: 04/19/24 with myself Reason for last known acute care visit: Patient was admitted from 01/10/24-01/17/24 with LE cellulitis, UTI and bacteremia. She had a drainingLE wound that grew Pseudomonas. She was discharged [...] 240 lbs take Bumex 1 mg TID. Today's concerns are: Patient states overall she has been doing well at home. She is struggling with chronic lymphedema and open wounds to the LE's. She has nursing coming for wound care and home PT. She is able to ambulate short distances. She feels the edema is improved slightly. She has weeping from the LE's. No pain or increased redness. No fever/chills or feeling ill. She is taking Bumex 1 mg BID. She has not needed extra doses lately. Weight has been stable. No SOB/GAMINO or cough. She sleeps in the recliner at night. She is trying compression stockings on the right leg. Appetite is good. No changes in bowelor urinary habits. ROS: See HPI Objective Physical Exam: BP 135/80 (BP Site: Left Arm, BP Position: Sitting, BP Cuff Size: Regular) | Pulse 68 | Temp 36.9 C (98.4 F) (Infrared ) | SpO2 96% Previous [...] Breath sounds: Normal breath sounds. Musculoskeletal: Comments: Lymphedema noted to the bilateral LE's R>L, fluid blisters and open wounds noted more so to outer RLE. No surrounding erythema or purulence. Minimal open wounds noted to the LLE. Neurological: Mental Status: She is alert. Medication Review: Current Outpatient Medications Medication Sig Dispense Refill vitamin b 12 (CYANOCOBALAMIN) 1000 MCG TABS Take 1 Tablet by mouth in the morning. docusate sodium (COLACE) 100 MG Capsule Take 1 Capsule by mouth 2 times a day as needed for Constipation. (Patient not taking: Reported on 2024) clonazePAM (KLONOPIN) 1 MG Tablet TAKE 1 TABLET PRIOR TO SLEEP, FOR PLMS And RLS 90 Tab 0 ferrous sulfate (FEOSOL) 325 (65 FE) MG Tablet Take 1 tab twice per day (Patient taking differently: Take 1 Tablet by mouth daily with breakfast. Take 1 tab daily) 180 Tab 1 Saccharomyces boulardii 250 MG Oral Capsule (Florastor) [...] as needed for Pain, Severe. 180 Tablet 0 Amitriptyline HCl 25 MG Oral Tablet (Elavil) TAKE 1 TABLET EVERY NIGHT 1 HOUR BEFORE BEDTIME 90 Tablet 1 LORazepam 0.5 MG Oral Tablet (Ativan) One tab 30 min before mri, repeat 15 min prior and at start (Patient not taking: Reported on 12/16/2023) 1 Tablet 0 Bumetanide 1 MG Oral Tablet (Bumex) Take 1 Tablet by mouth in the morning and 1 Tablet before bedtime. Carvedilol 12.5 MG Oral Tablet (Coreg) Take 1 Tablet by mouth in the morning and 1 Tablet before bedtime. with food. 180 Tablet 3 busPIRone HCl 15 MG Oral Tablet (Buspar) Take 1 Tablet by mouth in the morning and 1 Tablet at noonand 1 Tablet before bedtime. 270 Tablet 1 Gabapentin 400 MG Oral Capsule (Neurontin) Take 1 Capsule by mouth in the morning and 1 Capsule at noon and 1 Capsule before bedtime. 270 Capsule 1 Colestipol HCl 1 GM Oral Tablet (Colestid) Take 2 Tablets by mouth in the morning and 2 Tablets before bedtime. Take extra table on days with diarrhea for max of 5 per day. 450 Tablet 3 Apixaban 5 MG Oral Tablet (Eliquis) Take 1 Tablet by mouth in the morning and 1 Tablet before bedtime. 180 Tablet 1 Levothyroxine Sodium 125 MCG Oral Tablet (Levoxyl) Take 1 Tablet by mouth in the morning. (at least30 min prior to breakfast or other meds). 90 Tablet 1 Clotrimazole 1 % Vaginal Cream Apply a pea sized dollop to vaginal entrance and labia at bedtime nightly 45 g 3 Nystatin 045249 UNIT/GM External Powder (Nystop) Apply topically to affected area 3 times a day. Apply to abdominal folds 60 g 1 Pramipexole Dihydrochloride 0.25 MG Oral Tablet (Mirapex) TAKE 1 TABLET IN THE AFTERNOON AND 2 TABLETS AT BEDTIME 270 Tablet 3 Diphenoxylate-Atropine 2.5-0.025 MG Oral Tablet (Lomotil) Take 1 Tablet by mouth every 6 hours as needed for Diarrhea. 30 Tablet 1 Potassium Chloride Kadie ER 20 MEQ Oral Tablet Extended Release Take 1 Tablet by mouth in the morning and 1 Tablet before bedtime. 120 Tablet 0 Potassium Chloride Kadie ER 20 MEQ Oral Tablet Extended Release Take 1 Tablet by mouth in the morning and 1 Tablet before bedtime. 180 Tablet 3 Vitamin D (Ergocalciferol) 1.25 MG (40238 UT) Oral Capsule (Drisdol) TAKE 1 CAPSULE ONCE WEEKLY 12 Capsule 1 No current facility-administered medications for this visit. Mobility Evaluation: MACH10 Assessment: Assistive Devices Used in the Home: Walker (standard or rollator) Recent Falls: Falls in the last 6 months: No Depression Screening: PHQ2 Depression Screening PHQ-2 & JOSE-2 assessment Social Determinants of Health Screening: [facility] Screening Tool Social Determinants of Health Financial [...] Stability Do you currently live in a long-term or have no steady place to sleep [...] years): Not on file Anne Cano PA-C 2:26 PM *Communication sent to PCP (via [employer] if non-[facility]), Population Health Care Team members, relevant Specialty Care Physicians* * Barbara Butt, Community Health [employer] Set Up Operator - 06/21/2024 2:15 PM EDT Telemedicine visit: Yes Patient location: HOME. I was not in a hospital or clinic location. After connecting through televideo, patient was verified with two unique identifiers. Patient (or authorized legal chemical sales representative) was then informed that this was a Telemedicine visit and being conducted confidentially over secure lines. Methods to assure confidentiality were taken. Patient acknowledged consent and understanding of privacy and security of the Telemedicine visit. The patient agreed to participate. Community Health [employer] Set Up Operator (JOHN) documentation: CHW facilitated telehealth visit with Kirstin Tricia Butt- Community Health Worker 1 Support Services/[facility] [email or web address] Electronically signed by Barbara Butt Community Health [employer] Set Up Operator at 06/22/2024 8:53 AM EDT documented in this encounter Plan of Treatment Upcoming Encounters Date Type Department Care Team (Late st Contact Info) Description 08/02/2024 12:00 PM EDT Telemedicine [facility] [address] [place] [address] Anne Alcocer PA-C [address] [place] [address] Barbara Butt Community Health [employer] Set Up Operator [address] [place] [address] Scheduled Procedures Name Priority Associated Diagnoses Date/Ti [...] Visit 02/23/2020 02/22/2019 COVID-19 Vaccine ( season) 2023 11/10/2021, 01/21/2021, 12/31/2020 Influenza Vaccine (FLU shot) (#1) 2024 07/27/2023, 08/18/2022, 08/18/2022, Additional history exists CKD PHOS USE SMARTSET 67717 08/25/202408/14, 09/30/2022, 04/03/2020, Additional history exists GFR 08/28/2024 02/27/2024, 10/15, 08/25/2023, Additional history exists Depression Monitoring 09/30/2024 09/30/2023 Albumin/Creatinine Ratio 01/06/2025 024, 11/02/2023, 08/18/2022, Additional history exists CKD HGB USE SMARTSET 47468 02/26/202502/26, 02/27/2024, 11/06/2023, Additional history exists TSH 02/26/2025 02/27/2024, 02/12, 01/19/2023, Additional history exists DTaP,Tdap,and Td Vaccines (3 - Td or Tdap) 05/15/2032 05/15/2022, 04/03/2015, 05/03/2008, Additional history exists Pneumococcal Vaccine: 65+ Years Completed 01/02/2016, 05/03/2008 VITAMIN D LEVEL ONCE IN A LIFETIME-USE SMARTSET# [id number] Completed 02/27/2024, 01/19/2023, 05/27/2022, Additional history exists [...] this encounter Medical Devices Implanted Type Area Mentally Impaired Teacher Device Identifier Shelf Expiration Date Model / Serial / Lot Lens Intraoc 22.0 - [id number] - [id number] Implanted:Qty: 1 on 01/15/2020 by Delta Johansen MD at OR [facility] Left: Eye BAUSCH & LOMB 09/13/2024 [id number] / [id number] / Lens Intraoc 22.0 - [id number] - [id number] Implanted:Qty: 1 on 01/22/2020 by Delta Johansen MD at OR [facility] Right: Eye BAUSCH & LOMB 02/12/2024 [id number] / [id number] / [id number] documented as of this encounter Visit Diagnoses Diagnosis Chronic diastolic heart failure with preserved ejection fraction (HCC)- Primary Vagina itching Pruritus of genital organs Irritable bowel syndrome with diarrhea Irritable bowel syndrome Diarrhea, unspecified type Arthralgia, unspecified joint Other specified hypothyroidism Restless legs syndrome Restless legs syndrome (RLS) Hypertensive kidney disease with stage 3a chronic kidney disease Lymphedema Other lymphedema documented in this encounter Care Teams Senior Health Consultant Relationship Specialty Start Date End Date Tristan Conde MD [address] [place] [address] PCP - General 01/10/03 documented as of this encounter"
--- OUTSIDE RECORDS SUMMARY | 2024-09-03 19:57 | External Medical Summary | Summary of Care ---
Author Name Unknown Organization [facility] Address [address] [place] [address] Phone [phone] Care Team Providers Care Batter Depositor Name Role Phone Lily Parham PA-C Primary Care Provider [phone] Reason for Visit * Reason Onset Date Comments Appointment 07/26/2024 Encounter Details Date Type Department Care Team ([facility] st Contact Info) Description 07/26/2024 Telephone [facility] [place] [address] [place] [address] [phone] Jason Holman, NIKKI [address], [place] [phone] Appointment (//) Allergies No known active allergiesdocumented as of [...] meds). 90 Tablet 1 06/21/2024 Active Nystatin 279376 UNIT/GM External Powder (Nystop) Apply topically to affected area 3 times a day. Apply to abdominal folds 60 g 1 06/21/2024 Active Pramipexole Dihydrochloride 0.25 MG Oral Tablet (Mirapex)Indications: Restless legs syndrome TAKE 1 TABLET IN THE AFTERNOON AND 2 TABLETS AT BEDTIME 270 Tablet 3 06/21/2024 Active Vitamin D (Ergocalciferol) 1.25 MG (49529 UT) Oral Capsule (Drisdol) TAKE 1 CAPSULE [...] mRNA, LNP-s, No Pre serve, 2-Dose Series ([employer]) 11/10/2021,01/21/2021,12/31/2020 Pneumococcal Conjugate Vacc, 13 Valent (Prevnar) [...] Miscellaneous Notes * Telephone Encounter - Jason Holman, NIKKI - 07/26/2024 12:36 PM EDT Call to pt and confirmed CHW ret hv for urine sample pickup at 830am 07/27, pt agreeable documented in this encounter Plan of Treatment Upcoming Encounters Date Type Department Care Team (Late st Contact Info) Description 07/27/2024 8:50 AM EDT Home Visit Care Coordination and Integration [address] [place] [address] Barbara Butt, [facility] Health Can Vacuum Tester [address] [place] [address] 08/02/2024 12:00 PM EDT [facility]medicine [facility] [place] [address] [place] [address] Anne Alcocer PA-C [address] [place] [address] Barbara Butt, [facility] Health Can Vacuum Tester [address] [place] [address] Scheduled Procedures Name Priority Associated Diagnoses Date/Ti [...] Additional history exists CKD PHOS USE SMARTSET 01988 08/25/202408/14, 09/30/2022, 04/03/2020, Additional history exists GFR 08/28/2024 02/27/2024, 10/15, 08/25/2023, Additional history exists Depression Monitoring 09/30/2024 09/30/2023 Albumin/Creatinine Ratio 01/06/2025 024, 11/02/2023, 08/18/2022, Additional history exists CKD HGB USE SMARTSET 59583 02/26/202502/26, 02/27/2024, 11/06/2023, Additional history exists TSH 02/26/2025 02/27/2024, 02/12, 01/19/2023, Additional history exists DTap/Tdap Vaccines (3 - Td or Tdap) 05/15/2032 05/15/2022, 04/03/2015, 05/03/2008, Additional history exists Pneumococcal Vaccine: 65+ Years Completed 01/02/2016, 05/03/2008 VITAMIN D LEVEL ONCE IN A LIFETIME-USE SMARTSET# [id number] Completed 02/27/2024, 01/19/2023, 05/27/2022, Additional history exists [...] this encounter Medical Devices Implanted Type Area Motor Operator Device Identifier Shelf Expiration Date Model / Serial / Lot Lens Intraoc 22.0 - [id number] - [id number] Implanted:Qty: 1 on 01/15/2020 by Delta Johansen MD at OR [facility] Left: Eye BAUSCH & LOMB 09/13/2024 [id number] / [id number] / Lens Intraoc 22.0 - [id number] - [id number] Implanted:Qty: 1 on 01/22/2020 by Delta Johansen MD at OR [facility] Right: Eye BAUSCH & LOMB 02/12/2024 [id number] / [id number] / [id number] documented as of this encounter Care Teams Batter Depositor Relationship Specialty Start Date End Date Lily Parham PA-C [address] [facility] [place] [place] [address] PCP - General Physician Can Vacuum Tester 07/20/24 documented as of this encounter
--- OUTSIDE RECORDS SUMMARY | 2024-09-03 19:57 | External Medical Summary | Summary of Care ---
Author Name Unknown Organization [facility] Address [address] [place] [address] Phone [phone] Care Team Providers Care Med Spa Manager Name Role Phone Tristan Conde MD Primary Care Provider +1- [phone] Reason for Visit * Reason Onset Date Comments Appointment 06/21/2024 Encounter Details Date Type Department Care Team (Late st Contact Info) Description 06/21/2024 Telephone [facility] [place] [address] [place] [address] Services, Scheduling [address] [place] [address] Appointment (//) Allergies No known active allergiesdocumented as of this encounter (statuses as of 06/21/2024) Medications Medication Sig Dispensed Refills Start Date [...] Tablet before bedtime. 120 Tablet 04/23/2024 Active Potassium Chloride Kadie ER 20 MEQ Oral Tablet Extended Release Take 1 Tablet by mouth in the morning and 1 Tablet before bedtime. 180 Tablet 3 04/23/2024 Active Apixaban 5 MG Oral Tablet [...] meds). 90 Tablet 1 06/21/2024 Active Nystatin 071037 UNIT/GM External Powder (Nystop) Apply topically to affected area 3 times a day. Apply to abdominal folds 60 g 1 06/21/2024 Active Pramipexole Dihydrochloride 0.25 MG Oral Tablet (Mirapex)Indications: Restless legs syndrome TAKE 1 TABLET IN THE AFTERNOON AND 2 TABLETS AT BEDTIME 270 Tablet 3 06/21/2024 Active Vitamin D (Ergocalciferol) 1.25 MG (76324 UT) Oral Capsule (Drisdol) TAKE 1 CAPSULE [...] as of this encounter (statuses as of 06/21/2024) Active Problems Problem Noted Date Diagnosed Date [...] as of this encounter (statuses as of 06/21/2024) Resolved Problems Problem Noted Date Diagnosed Date [...] as of this encounter (statuses as of 06/21/2024) Immunizations Name Administration Dates Next Due COVID-19 [...] encounter Miscellaneous Notes * Telephone Encounter - Shi Quinn OSA - 06/21/2024 4:21 PM EDT Per Request schedule [facility] tele[facility] 6 week f/u.... Called s/w pts son he advised 08/02 at 12:00pm is good date and time. documented in this encounter Plan of Treatment Upcoming Encounters Date Type Department Care Team (Late st Contact Info) Description 08/02/2024 12:00 PM EDT [facility]icine [facility] [place] [address] [place] [address] Anne Alcocer PA-C [address], [place] [id number] Barbara Butt, Community Health Social Media Assistant [address] [place] [address] Scheduled Procedures Name Priority Associated [...] Additional history exists CKD PHOS USE SMARTSET 64420 08/25/202408/14, 09/30/2022, 04/03/2020, Additional history exists GFR 08/28/2024 02/27/2024, 10/15, 08/25/2023, Additional history exists Depression Monitoring 09/30/2024 09/30/2023 Albumin/Creatinine Ratio 01/06/2025 024, 11/02/2023, 08/18/2022, Additional history exists CKD HGB USE SMARTSET 27186 02/26/202502/26, 02/27/2024, 11/06/2023, Additional history exists TSH 02/26/2025 02/27/2024, 02/12, 01/19/2023, Additional history exists DTaP,Tdap,and Td Vaccines (3 - Td or Tdap) 05/15/2032 05/15/2022, 04/03/2015, 05/03/2008, Additional history exists Pneumococcal Vaccine: 65+ Years Completed 01/02/2016, 05/03/2008 VITAMIN D LEVEL ONCE IN A LIFETIME-USE SMARTSET# 06244 Completed 02/27/2024, 01/19/2023, 05/27/2022, Additional history exists [...] encounter Medical Devices Implanted Type Area Field Crop Grower Device Identifier Shelf Expiration Date Model / Serial / Lot Lens Intraoc 22.0 - [id number] - [id number] Implanted:Qty: 1 on 01/15/2020 by Delta Johansen MD at OR [facility] Left: Eye BAUSCH & LOMB 09/13/2024 [id number] / [id number] / Lens Intraoc 22.0 - [id number] - [id number] Implanted:Qty: 1 on 01/22/2020 by Delta Johansen MD at OR [facility] Right: Eye BAUSCH & LOMB 02/12/2024 [id number] / [id number] / [id number] documented as of this encounter Care Teams Med Spa Manager Relationship Specialty Start Date End Date Tristan Conde MD [address] [place] [address] PCP - General 01/10/03 documented as of this encounter
--- OUTSIDE RECORDS SUMMARY | 2024-09-03 19:57 | External Medical Summary ---
Author Name Unknown Address Unknown Organization [id number]:[facility] [place] [address] [place] [address] Laboratory Report Ordering Provider Test Date Status PARISH COREY 07/27/2024 08:30:00 Final <10,000 colonies/ml mixed no rmal rancho Observation Date Value Abnormality Reference (Units ) Status Bacteria identified in Specimen by Culture 07/27/2024 08:30:00 [id number]^KLEBSIELL A PNEUMONIAE Abnormal Final >100,000 colonies/mL Klebsie lla pneumoniae Performing Location LABORATORY C - [address] [place] [address] Ordering Provider Test Date Status PARISH COREY 07/27/2024 08:30:00 Final Observation Date Value Abnormality Reference (Units ) Status Ampicillin + Sulbactam 07/27/2024 08:30:00 4 Susceptible Final Cefazolin 07/27/2024 08:30:00 <=4 Susceptible Final Cefepime susceptibility 07/27/2024 08:30:00 <=1 Susceptible Final Ceftriaxone suceptibility 07/27/2024 08:30:00 <=1 Susceptible Final Ciprofloxacin 07/27/2024 08:30:00 <=0.25 Susceptible Final Due to serious side effects, the FDA has advised against using Ciprofloxacin to treat uncomplicated UTIs and respiratory tract infections unless there are no alternative treatment options. Gentamicin susceptibility 07/27/2024 08:30:00 <=1 Susc eptible Final Nitrofurantoin susceptibility 07/27/2024 08:30:00 32 Susceptible Final Piperacillin + Tazobactamsusceptibility 07/27/2024 08:30:00 <=4 Susceptible Final TMP-SMZ susceptibility 07/27/2024 08:30:00 <=20 Suscept ible Final Test: Culture, Urine, Quanti tative
Specimen Source: Urine, Clean Catch
Specimen Type: Urine
Specimen Date: 07/27/[id number]
Result Date: 07/29/2024 1438
Result Status: Final result
Abnormal: Yes
Resulting Lab: [facility]
[address]
[place] [address]

CULTURE

>100,000 colonies/mL Klebsiella pneumoniae (Abnormal)

<10,000 colonies/ml mixed normal rancho

SUSCEPTIBILITY

Klebsiella
pneumoniae
METHOD MICROBROTH
DILUTIONS

AMPICILLIN/SULBACTAM 4 Susceptible
CEFAZOLIN <=4 Susceptible
CEFEPIME <=1 Susceptible
CEFTRIAXONE <=1 Susceptible
CIPROFLOXACIN <=0.25 Susceptible
[1]
GENTAMICIN <=1 Susceptible
NITROFURANTOIN 32 Susceptible
PIPERACILLIN TAZOBACTAM <=4 Susceptible
TRIMETH/SULFAMETHOXAZOLE <=20 Susceptible

[1] Due to serious side effects, the FDA has advised against using
Ciprofloxacin to treat uncomplicated UTIs and respiratory tract infections
unless there are no alternative treatment options.

null Performing Location [facility] [place] [address] [facility] [address]
--- OUTSIDE RECORDS SUMMARY | 2024-09-03 19:57 | External Medical Summary | Summary of Care ---
Author Name Unknown Organization [facility] Address [address] [place] [address] Phone [phone] Care Team Providers Care Wind Turbine Mechanic Name Role Phone Tristan Conde MD Primary Care Provider +1- [phone] Reason for Visit * Reason Onset Date Comments Home Health 03/14/2024 Reporting open a reas on left leg Encounter Details Date Type Department Care Team (Late st Contact Info) Description 03/14/[address] [facility] [address] [place] [address] Tristan Conde MD [address] [place] [address] [facility] (Reporting open areas on left ... Allergies No known active allergiesdocumented as of this encounter (statuses as of 06/13/2024) Medications Medication Sig Dispensed Refills Start Date [...] PLMS And RLS 90 Tab 10/24/2018 Active ferrous sulfate (FEOSOL) 325 (65 FE) MG Tablet Take 1 tab twice per day 180 Tab 1 06/17/2020 Active Additional Information Patient taking differently: 325 mg Oral BREAKFAST, Take 1 tab daily, Reported on 02/28/2023 Saccharomyces boulardii 250 MG Oral Capsule (Florastor)Indication [...] for Pain, Severe. 180 Tablet 10/28/2023 Active Amitriptyline HCl 25 MG Oral Tablet (Elavil)Indications:P ersistent insomnia,New daily persistent headache TAKE 1 TABLET EVERY NIGHT 1 HOUR BEFORE BEDTIME 90 Tablet 1 10/28/2023 Active LORazepam 0.5 MG Oral Tablet (Ativan)Indications:D iarrhea, unspecified type,Arthritis One tab 30 min before mri, repeat 15 min prior and at start 1 Tablet 11/09/2023 Active Additional Information Patient not taking.Reported on 12/16/2023 Bumetanide 1 MG Oral Tablet (Bumex) Take 1 Tablet by mouth in the morning and 1 Tablet before bedtime. Active Carvedilol 12.5 MG Oral Tablet (Coreg) Take 1 Tablet by mouth in the morning and 1 Tablet before bedtime. with food. 180 Tablet 3 02/23/2024 Active busPIRone HCl 15 MG Oral Tablet (Buspar) Take 1 Tablet by mouth in the morning and 1 Tablet at noon and 1 Tablet before bedtime. 270 Tablet 1 02/23/2024 Active Gabapentin 400 MG Oral Capsule (Neurontin)Indication s:Arthralgia, unspecified joint Take 1 Capsule by mouth in the morning and 1 Capsule at noon and 1 Capsule before bedtime. 270 Capsule 1 02/23/2024 Active Colestipol HCl 1 GM Oral Tablet (Colestid)Indications :Irritable bowel syndrome with diarrhea Take 2 Tablets by mouth in the morning and 2 Tablets before bedtime. Take extra table on days with diarrhea for max of 5 per day. 450 Tablet 3 02/23/2024 Active Apixaban 5 MG Oral Tablet (Eliquis) Take 1 Tablet by mouth in the morning and 1 Tablet before bedtime. 180 Tablet 1 02/23/2024 Active Levothyroxine Sodium 125 MCG Oral Tablet (Levoxyl)Indications: Other specified hypothyroidism Take 1 Tablet by mouth in the morning. (at least 30 min prior to breakfast or other meds). 90 Tablet 1 02/23/2024 Active Clotrimazole 1 % Vaginal CreamIndications:Vagi na itching Apply a pea sized dollop to vaginal entrance and labia at bedtime nightly 45 g 3 02/23/2024 Active Nystatin 929231 UNIT/GM External Powder (Nystop) Apply topically to affected area 3 times a day. Apply to abdominal folds 60 g 1 02/23/2024 Active Pramipexole Dihydrochloride 0.25 MG Oral Tablet (Mirapex)Indications: Restless legs syndrome TAKE 1 TABLET IN THE AFTERNOON AND 2 TABLETS AT BEDTIME 270 Tablet 3 02/23/2024 Active Diphenoxylate-Atropin e 2.5-0.025 MG Oral Tablet (Lomotil)Indications: Diarrhea, unspecified type Take 1 Tablet by mouth every 6 hours as needed for Diarrhea. 30 Tablet 1 02/23/2024 Active documented as of this encounter (statuses as of 06/13/2024) Active Problems Problem Noted Date Diagnosed Date [...] of total days, AHI 4.9, pressures 7-11. 4/26/09 PSG -- RDI 12.5, hypoxia, significant PLMD, [...] as of this encounter (statuses as of 06/13/2024) Resolved Problems Problem Noted Date Diagnosed Date [...] as of this encounter (statuses as of 06/13/2024) Immunizations Name Administration Dates Next Due COVID-19 [...] No 11/09/2023 Does the household have a [employer] cent[employer] source of income? (Household - for ages [...] encounter Miscellaneous Notes * Telephone Encounter - JesusEmilyElza K, JOSIE - 03/14/2024 9:03 AM EDT Concerns Angelia RN, Calling from: [facility] Report/Concerns of: open areas on legs Symptoms: Seeping leg wounds Vitals: T 99.7 P 67 RR 18 BP 124/79 SP O2 96 room air Lung sounds clear Weight n/a Blood sugar n/a Narrative: CLINTON Galan calling from [facility] . Patient had 2 large blisters 3 cm x 3 cm's on the left and 2 on the right that are 1 cm x 1 cm The two blisters on the left burst, and are now draining. They are not red or warm to touch. Angelia reported they do not look infected. Her temperature tends to run high. Last week 97.5, week before it was 99.3, week before that 99.7, three weeks ago it was 99.2 Asking if they can clean her open wounds with normal saline, pat dry, apply aquacel AG to open areas, and cover with border gauze? This is what they did before when the areas were open. Ankle measurements are down from last week by a centimeter bilaterally. Patient is unable to stand on a scale. Her pain is a 4 in her knee's and back. This is good for her. Call back Angelia with any advice or orders at [phone] Please fax new orders to [phone] * Telephone Encounter - Dora Limon OSA - 03/14/2024 9:00 AM EDT Reason for patient's call: Reporting open areas on left leg Caller was transferred to Elza at the nurse line. documented in this encounter Plan of Treatment Upcoming Encounters Date Type Department Care Team (Late st Contact Info) Description 06/21/2024 2:30 PM EDT Telemedicine [facility], [place] [address] [place] [address] Anne Alcocer PA-C [address] [place] [address] Barbara Butt, Community Health Head Resident [address] [place] [address] Scheduled Procedures Name Priority Associated Diagnoses Date/Ti me COLONOSCOPY FLEXIBLE PROXIMA L DIAGNOSTIC Recall Special screening for malignant neoplasms, colon Health Maintenance Due Date Last Done Comments Zoster Vaccines (2 of 3) 07/02/2014 05/07/2014 DXA Scan 03/21/2016 03/21/2014, 12/2007, 10/15/2008, Additional history exists *BISPHONATE OR OTHER ACCEPTABLE MEDICATION NEEDED FOR OSTEOPOROSIS (REFER TO SMARTSET #1146) 02/09/2017 COVID-19 Vaccine ( season) 2023 11/10/2021, 01/21/2021, 12/31/2020 Influenza Vaccine (FLU shot) (#1) 2024 07/27/2023, 08/18/2022, 08/18/2022, Additional history exists CKD PHOS USE SMARTSET 52650 08/25/202408/14, 09/30/2022, 04/03/2020, Additional history exists GFR 08/28/2024 02/27/2024, 10/15, 08/25/2023, Additional history exists Depression Monitoring 09/30/2024 09/30/2023 Albumin/Creatinine Ratio 01/06/2025 024, 11/02/2023, 08/18/2022, Additional history exists CKD HGB USE SMARTSET 83551 02/26/202502/26, 02/27/2024, 11/06/2023, Additional history exists TSH 02/26/2025 02/27/2024, 02/12, 01/19/2023, Additional history exists DTaP,Tdap,and Td Vaccines (3 - Td or Tdap) 05/15/2032 05/15/2022, 04/03/2015, 05/03/2008, Additional history exists Pneumococcal Vaccine: 65+ Years Completed 01/02/2016, 05/03/2008 VITAMIN D LEVEL ONCE IN A LIFETIME-USE SMARTSET# 30475 Completed 02/27/2024, 01/19/2023, 05/27/2022, Additional history exists [...] this encounter Medical Devices Implanted Type Area Material Spreader Device Identifier Shelf Expiration Date Model / Serial / Lot Lens Intraoc 22.0 - [id number] - [id number] Implanted:Qty: 1 on 01/15/2020 by Delta Johansen MD at OR [facility] Left: Eye BAUSCH & LOMB 09/13/2024 [id number] / [id number] / Lens Intraoc 22.0 - [id number] - [id number] Implanted:Qty: 1 on 01/22/2020 by Delta Johansen MD at OR [facility] Right: Eye BAUSCH & LOMB 02/12/2024 [id number] / [id number] / [id number] documented as of this encounter Care Teams Wind Turbine Mechanic Relationship Specialty Start Date End Date Tristan Conde MD [address], [place] [id number] PCP - General 01/10/03 documented as of this encounter
--- OUTSIDE RECORDS SUMMARY | 2024-09-03 19:57 | External Medical Summary ---
Author Name Unknown Address Unknown Organization K0G:[facility]ATORY [facility] [address] - [address] [place] [address] Laboratory Report Ordering Provider Test Date Status PARISH COREY 07/27/2024 08:30:00 Final Observation Date Value Abnormality Reference (Units ) Status Color of Urine by Auto 07/27/2024 08:30:00 Yellow Light Yellow, Yellow, Dark Yellow Final Clarity, Urine 07/27/2024 08:30:00 Slightly Cloudy Abnormal Clear Final Glucose [Mass/volume] in Urine by Automated test strip 07/27/2024 08:30:00 Negative Negative (mg/dL) Final Bilirubin.total [Presence] in Urine by Automated test strip 07/27/2024 08:30:00 Negative Negative Final Ketones [Mass/volume] in Urine by Automated test strip 07/27/2024 08:30:00 Negative Negative (mg/dL) Final Specific gravity, Urine 07/27/2024 08:30:00 1.020 1.003-1.030 Final Hemoglobin [Presence] in Urine by Automated test strip 07/27/2024 08:30:00 Moderate Abnormal Negative Final pH, Urine 07/27/2024 08:30:00 6.0 5.0-7.5 (Units) Final Protein [Mass/volume] in Urine by Automated test strip 07/27/2024 08:30:00 Trace Abnormal Negative (mg/dL) Final Urobilinogen [Mass/volume] in Urine by Automated test strip 07/27/2024 08:30:00 0.2 0.2, 1.0 (mg/dL) Final Nitrite [Presence] in Urine by Automated test strip 07/27/2024 08:30:00 Positive Abnormal Negative Final Leukocyte esterase [Presence] in Urine by Automated test strip 07/27/2024 08:30:00 Moderate Abnormal Negative Final RBC, Urine 07/27/2024 08:30:00 6-9 Abnormal 0-2 (/HPF) Final WBC, Urine 07/27/2024 08:30:00 50+ Abnormal 0-2 (/HPF) Final Bacteria [#/area] in Urine sediment by Microscopy high power field 07/27/2024 08:30:00 51-100 Abnormal 0-25 (/HPF) Final CULTURE, URINE - [facility] 07/27/2024 08:30:00 Final Quantitative urine culture t o be performed Performing Location LABORATORY [facility] [address] [place] [address]
--- OUTSIDE RECORDS SUMMARY | 2024-09-03 19:57 | External Medical Summary | Summary of Care ---
Author Name Unknown Organization [facility] Address [address] [place] [address] Phone [phone] Care Team Providers Care Weatherization Director Name Role Phone Tristan Conde MD Primary Care Provider +1- [phone] Reason for Visit * Reason Onset Date Comments FYI 06/04/2024 Encounter Details Date Type Department Care Team (Late st Contact Info) Description 06/04/[address] [facility] [address] [place] [address] Tristan Conde MD [address] [place] [address] FYI Allergies No known active allergiesdocumented as of [...] nightly 45 g 3 02/23/2024 Active Nystatin 288556 UNIT/GM External Powder (Nystop) Apply topically to [...] for Diarrhea. 30 Tablet 1 02/23/2024 Active Potassium Chloride Kadie ER 20 MEQ Oral Tablet Extended Release Take 1 Tablet by mouth in the morning and 1 Tablet before bedtime. 120 Tablet 04/23/2024 Active Potassium Chloride Kadie ER 20 MEQ Oral Tablet Extended Release Take 1 Tablet by mouth in the morning and 1 Tablet before bedtime. 180 Tablet 3 04/23/2024 Active Vitamin D (Ergocalciferol) 1.25 MG (63242 UT) Oral Capsule (Drisdol) TAKE 1 CAPSULE ONCE WEEKLY 12 Capsule 1 05/25/2024 Active documented as of this encounter (statuses [...] mRNA, LNP-s, No Pre serve, 2-Dose Series ([facility]) 11/10/2021,01/21/2021,12/31/2020 Pneumococcal Conjugate Vacc, 13 Valent (Prevnar) [...] I IV3, With Preserve, Inj 11/11/2014,10/24/2009(Deferred: Patient Refused),09/10/2003,08/31/2002 TD - Tetanus/Diptheria (ADULT) [...] Telephone Encounter - Tristan Conde MD - 06/12/2024 7:00 PM EDT I have not seen the patient for almost 2 years. I would need a visit with her if they want new orders from me * Telephone Encounter - Chelly Cavazos LPN - 06/07/2024 2:05 PM EDT Please advise, can an order be placed for the patient? * Telephone Encounter - Jennie Florentino OSA - 06/07/2024 2:01 PM EDT Pt is staying with [facility] for another 60 day cycle and they need a a wound care order forbilateral lower legs to a boot. Please advise. * Telephone Encounter - Jerson Wood MED ASSIST - 06/04/2024 12:48 PM EDT Received fax from [facility] requesting order review and signature. Please fax back to [phone] documented in this encounter Plan of Treatment Upcoming Encounters Date Type Department Care Team (Late st Contact Info) Description 06/21/2024 2:30 PM EDT Telemedicine [facility], [place] [address] [place] [address] Anne Alcocer PA-C [address] [place] [address] Barbara Butt, Community Health President And Ceo [address] [place] [address] Scheduled Procedures Name Priority Associated Diagnoses Date/Ti [...] Additional history exists CKD PHOS USE SMARTSET 18374 08/25/202408/14, 09/30/2022, 04/03/2020, Additional history exists GFR 08/28/2024 02/27/2024, 10/15, 08/25/2023, Additional history exists Depression Monitoring 09/30/2024 09/30/2023 Albumin/Creatinine Ratio 01/06/2025 024, 11/02/2023, 08/18/2022, Additional history exists CKD HGB USE SMARTSET 29538 02/26/202502/26, 02/27/2024, 11/06/2023, Additional history exists TSH 02/26/2025 02/27/2024, 02/12, 01/19/2023, Additional history exists DTaP,Tdap,and Td Vaccines (3 - Td or Tdap) 05/15/2032 05/15/2022, 04/03/2015, 05/03/2008, Additional history exists Pneumococcal Vaccine: 65+ Years Completed 01/02/2016, 05/03/2008 VITAMIN D LEVEL ONCE IN A LIFETIME-USE SMARTSET# 26733 Completed 02/27/2024, 01/19/2023, 05/27/2022, Additional history exists [...] this encounter Medical Devices Implanted Type Area Open Die Inspector Device Identifier Shelf Expiration Date Model / Serial / Lot Lens Intraoc 22.0 - [id number] - [id number] Implanted:Qty: 1 on 01/15/2020 by Delta Johansen MD at OR [facility] Left: Eye BAUSCH & LOMB 09/13/2024 [id number] / [id number] / Lens Intraoc 22.0 - [id number] - [id number] Implanted:Qty: 1 on 01/22/2020 by Delta Johansen MD at OR [facility] Right: Eye BAUSCH & LOMB 02/12/2024 [id number] / [id number] / [id number] documented as of this encounter Care Teams Weatherization Director Relationship Specialty Start Date End Date Tristan Conde MD [address] [place] [address] PCP - General 01/10/03 documented as of this encounter
--- OUTSIDE RECORDS SUMMARY | 2024-09-03 19:57 | External Medical Summary | Summary of Care ---
Author Name Unknown Organization [facility] Address [address] [place] [address] Phone [phone] Care Team Providers Care Air [employer] Senior Officer Name Role Phone Tristan Conde MD Primary Care Provider +1- [phone] Encounter Details Date Type Department Care Team (Late st Contact Info) Description 06/12/2024 Telephone [facility] [address] [place] [address] Tristan Conde MD [address] [place] [address] Allergies No known active allergiesdocumented [...] nightly 45 g 3 02/23/2024 Active Nystatin 681396 UNIT/GM External Powder (Nystop) Apply topically to [...] 04/23/2024 Active Vitamin D (Ergocalciferol) 1.25 MG (34337 UT) Oral Capsule (Drisdol) TAKE 1 CAPSULE [...] encounter Miscellaneous Notes * Telephone Encounter - Jerson Wood MED ASSIST - 06/12/2024 12:00 PM EDT Received fax from [facility], requesting signature, date and fax back to [phone] documented in this encounter Plan of Treatment Upcoming Encounters Date Type Department Care Team (Late st Contact Info) Description 06/21/2024 2:30 PM EDT Telemedicine [facility], [place] [address] [place] [address] Anne Alcocer PA-C [address] [place] [address] Barbara Butt, Community Health Marketing Strategist [address] [place] [address] Scheduled Procedures Name Priority Associated [...] Additional history exists CKD PHOS USE SMARTSET 44000 08/25/202408/14, 09/30/2022, 04/03/2020, Additional history exists GFR 08/28/2024 02/27/2024, 10/15, 08/25/2023, Additional history exists Depression Monitoring 09/30/2024 09/30/2023 Albumin/Creatinine Ratio 01/06/2025 024, 11/02/2023, 08/18/2022, Additional history exists CKD HGB USE SMARTSET 21016 02/26/202502/26, 02/27/2024, 11/06/2023, Additional history exists TSH 02/26/2025 02/27/2024, 02/12, 01/19/2023, Additional history exists DTaP,Tdap,and Td Vaccines (3 - Td or Tdap) 05/15/2032 05/15/2022, 04/03/2015, 05/03/2008, Additional history exists Pneumococcal Vaccine: 65+ Years Completed 01/02/2016, 05/03/2008 VITAMIN D LEVEL ONCE IN A LIFETIME-USE SMARTSET# 37357 Completed 02/27/2024, 01/19/2023, 05/27/2022, Additional history exists [...] this encounter Medical Devices Implanted Type Area Finisher Card Tender Device Identifier Shelf Expiration Date Model / Serial / Lot Lens Intraoc 22.0 - [id number] - [id number] Implanted:Qty: 1 on 01/15/2020 by Delta Johansen MD at OR [facility] Left: Eye BAUSCH & LOMB 09/13/2024 [id number] / [id number] / Lens Intraoc 22.0 - [id number] - [id number] Implanted:Qty: 1 on 01/22/2020 by Delta Johansen MD at OR [facility] Right: Eye BAUSCH & LOMB 02/12/2024 [id number] / [id number] / [id number] documented as of this encounter Care Teams [employer] Senior Officer Relationship Specialty Start Date End Date Tristan Conde MD [address] [place] [address] PCP - General 01/10/03 documented as of this encounter
--- OUTSIDE RECORDS SUMMARY | 2024-09-03 19:57 | External Medical Summary | Summary of Care ---
Author Name Unknown Organization [facility] Address [address] [place] [address] Phone [phone] Care Team Providers Care Computer Systems Software Engineer Name Role Phone Tristan Conde MD Primary Care Provider +1- [phone] Reason for Visit * Reason Comments [facility]: Telehealth Encounter Details Date Type Department Care Team (Late st Contact Info) Description 06/21/2024 2:30 PM EDT [facility] [place] [address] [place] [address] Leora Alcocer PA-C [address] [place] [address] Barbara Butt, Community Health Incubator Tender [address] [place] [address] Chronic diastolic heart failure with preserved ejection fraction (HCC)*; Vagina itching; Irritable bowel syndrome with diarrhea; Diarrhea, unspecified type; Arthralgia, unspecified joint; Other specified hypothyroidism; Restless legs syndrome; Hypertensive kidney disease with stage 3a chronic kidney disease; Lymphedema; Multiple open wounds of lower leg, unspecified laterality, initial encounter Allergies No known active allergiesdocumented as of [...] meds). 90 Tablet 1 4 Active Nystatin 455918 UNIT/GM External Powder (Nystop) Apply topically to affected area 3 times a day. Apply to abdominal folds 60 g 1 4 Active Pramipexole Dihydrochloride 0.25 MG Oral Tablet (Mirapex)Indications :Restless legs syndrome TAKE 1 TABLET IN THE AFTERNOON AND 2 TABLETS AT BEDTIME 270 Tablet 3 4 Active Vitamin D (Ergocalciferol) 1.25 MG (37726 UT) Oral Capsule (Drisdol) TAKE 1 CAPSULE [...] 3 4 06/21/20 24 Discontinu ed(Refill) Nystatin 912072 UNIT/GM External Powder (Nystop) Apply topically to [...] Discontinu ed(Refill) Vitamin D (Ergocalciferol) 1.25 MG (85520 UT) Oral Capsule (Drisdol) TAKE 1 CAPSULE [...] mRNA, LNP-s, No Pre serve, 2-Dose Series ([employer]) 11/10/2021,01/21/2021,12/31/2020 Pneumococcal Conjugate Vacc, 13 Valent (Prevnar) [...] No 11/09/2023 Does the household have a [facility] source of income? (Household - for ages [...] documented in this encounter Progress Notes * Leora Alcocer PA-C - 06/21/2024 2:26 PM EDT [facility] Provider Telemedicine Visit Date: 06/21/2024 Time: 2:26 [...] two unique identifiers. Patient (or authorized legal quality audit representative) was then informed that this was a Telemedicine visit and being conducted confidentially over secure lines. Methods to assure confidentiality were taken. Patient acknowledged consent and understanding of privacy and security of the Telemedicine visit. The patient agreed to participate. Reason for Visit: Follow-Up Current Concerns: Asuncion Garcia is a 79 year old female seen today for a [facility] Telemedicine Provider Visit. Date of last known [...] at bedtime nightly 45 g 3 Nystatin 294817 UNIT/GM External Powder (Nystop) Apply topically to [...] Tablet 3 Vitamin D (Ergocalciferol) 1.25 MG (94928 UT) Oral Capsule (Drisdol) TAKE 1 CAPSULE ONCE WEEKLY 12 Capsule 1 No current facility-administered medications for this visit. Mobility Evaluation: MACH10 Assessment: Assistive Devices Used in the Home: Walker (standard or rollator) Recent Falls: Falls in the last 6 months: No Depression Screening: PHQ2 Depression Screening PHQ-2 & JOSE-2 assessment Social Determinants of Health Screening: SDTN Screening Tool Social Determinants of Health Financial [...] Stability Do you currently live in a fpc or have no steady place to sleep [...] for ages 0-17 years): Not on file Leora Cano PA-C 2:26 PM *Communication sent to PCP (via [facility]ax if non[facility]), Population Health Care Team members, relevant Specialty Care Physicians* * Barbara Butt Community Health Incubator Tender - 06/21/2024 2:15 PM EDT Telemedicine visit: Yes Patient location: HOME. I was not in a hospital or clinic location. After connecting through televideo, patient was verified with two unique identifiers. Patient (or authorized legal quality audit representative) was then informed that this was a Telemedicine visit and being conducted confidentially over secure lines. Methods to assure confidentiality were taken. Patient acknowledged consent and understanding of privacy and security of the Telemedicine visit. The patient agreed to participate. Community Health Incubator Tender (JOHN) documentation: CHW facilitated telehealth visit with Kirstin Butt- Community Health Worker 1 Support Services/[facility] [employer] [facility] [email or web address] documented in this encounter Miscellaneous Notes * Addendum Note - Leora Alcocer PA-C - 06/22/2024 2:26 PM EDT Addended by: LEORA ALCOCER on: 06/22/2024 02:26 PM Modules accepted: Orders documented in this encounter Plan of Treatment Upcoming Encounters Date Type Department Care Team (Late st Contact Info) Description 08/02/2024 12:00 PM EDT Telemedicine [facility], [address] [place] [address] Leora Alcocer PA-C [address] [place] [address] Barbara Butt, Community Health Incubator Tender [address] [place] [address] Scheduled Orders Name Type Priority Associated Diagnoses Orde r Schedule UNNA BOOT (NURSE APPLY) Procedures Routine Lymphedema Multiple open wounds of lower leg, unspecified laterality, initial encounter Ordered: 06/22/2024 Scheduled Procedures Name Priority Associated Diagnoses Date/Ti [...] Additional history exists CKD PHOS USE SMARTSET 70081 08/25/202408/14, 09/30/2022, 04/03/2020, Additional history exists GFR 08/28/2024 02/27/2024, 10/15, 08/25/2023, Additional history exists Depression Monitoring 09/30/2024 09/30/2023 Albumin/Creatinine Ratio 01/06/2025 024, 11/02/2023, 08/18/2022, Additional history exists CKD HGB USE SMARTSET 68047 02/26/202502/26, 02/27/2024, 11/06/2023, Additional history exists TSH 02/26/2025 02/27/2024, 02/12, 01/19/2023, Additional history exists DTaP,Tdap,and Td Vaccines (3 - Td or Tdap) 05/15/2032 05/15/2022, 04/03/2015, 05/03/2008, Additional history exists Pneumococcal Vaccine: 65+ Years Completed 01/02/2016, 05/03/2008 VITAMIN D LEVEL ONCE IN A LIFETIME-USE SMARTSET# 93695 Completed 02/27/2024, 01/19/2023, 05/27/2022, Additional history exists [...] this encounter Medical Devices Implanted Type Area Rn First Assist Device Identifier Shelf Expiration Date Model / Serial / Lot Lens Intraoc 22.0 - [id number] - [id number] Implanted:Qty: 1 on 01/15/2020 by Delta Johansen MD at OR [facility] Left: Eye [employer]OMB 09/13/2024 [id number] / [id number] / Lens Intraoc 22.0 - [id number] - [id number] Implanted:Qty: 1 on 01/22/2020 by Delta Johansen MD at OR [facility] Right: Eye BAUSCH & LOMB 02/12/2024 [id number] / [id number] / [id number] documented as of this encounter Visit Diagnoses Diagnosis Chronic diastolic heart failure with preserved ejection fraction (HCC)- Primary Vagina itching Pruritus of genital organs Irritable bowel syndrome with diarrhea Irritable bowel syndrome Diarrhea, unspecified type Arthralgia, unspecified joint Other specified hypothyroidism Restless legs syndrome Restless legs syndrome (RLS) Hypertensive kidney disease with stage 3a chronic kidney disease Lymphedema Other lymphedema Multiple open wounds of lower leg, unspecified laterality, initial encounter documented in this encounter Care Teams Computer Systems Software Engineer Relationship Specialty Start Date End Date Tristan Conde MD [address] [place] [address] PCP - General 01/10/03 documented as of this encounter"
--- OUTSIDE RECORDS SUMMARY | 2024-09-03 19:58 | External Medical Summary | Summary of Care ---
Author Name Unknown Organization [facility] Address [address] [place] [address] Phone [phone] Care Team Providers Care In Home Tutor Name Role Phone Tristan Conde MD Primary Care Provider +1- [phone] Reason for Visit * Reason Onset Date Comments Appointment 05/24/2024 Encounter Details Date Type Department Care Team (Late st Contact Info) Description 05/24/2024 Telephone [facility], [place] [address] [place], [place] [id number] Services, Scheduling [address] [place] [address] Appointment (//) Allergies No known active allergiesdocumented as of this encounter (statuses as of 05/24/2024) Medications Medication Sig Dispensed Refills Start Date [...] before bedtime. 180 Tablet 1 02/23/2024 Active Vitamin D (Ergocalciferol) 1.25 MG (05313 UT) Oral Capsule (Drisdol) TAKE 1 CAPSULE ONCE WEEKLY 12 Capsule 3 02/23/2024 Active Levothyroxine Sodium 125 MCG Oral Tablet (Levoxyl)Indications: Other specified hypothyroidism Take 1 Tablet by mouth in the morning. (at least 30 min prior to breakfast or other meds). 90 Tablet 1 02/23/2024 Active Clotrimazole 1 % Vaginal CreamIndications:Vagi na itching Apply a pea sized dollop to vaginal entrance and labia at bedtime nightly 45 g 3 02/23/2024 Active Nystatin 223002 UNIT/GM External Powder (Nystop) Apply topically to [...] Tablet before bedtime. 180 Tablet 3 04/23/2024 4 Active documented as of this encounter (statuses as of 05/24/2024) Active Problems Problem Noted Date Diagnosed Date [...] as of this encounter (statuses as of 05/24/2024) Resolved Problems Problem Noted Date Diagnosed Date [...] as of this encounter (statuses as of 05/24/2024) Immunizations Name Administration Dates Next Due COVID-19 [...] No 11/09/2023 Does the household have a [facility] source of income? (Household - for ages [...] Telephone Encounter - Jason Holman OSA - 05/24/2024 8:50 AM EDT Call to pt and confirmed kaco ret telemed for 06/01 at 1130am, pt agreeable documented in this encounter Plan of Treatment Upcoming Encounters Date Type Department Care Team (Late st Contact Info) Description 06/01/2024 11:00 AM EDT Telemedicine [facility], [place] [address] [place] [address] Anne Alcocer PA-C [address] [place] [address] Barbara Butt, Community Health Clinical Consultant [address] [place] [address] Scheduled Procedures Name Priority Associated Diagnoses Date/Ti [...] Additional history exists CKD PHOS USE SMARTSET 05495 08/25/202408/14, 09/30/2022, 04/03/2020, Additional history exists GFR 08/28/2024 02/27/2024, 10/15, 08/25/2023, Additional history exists Depression Monitoring 09/30/2024 09/30/2023 Albumin/Creatinine Ratio 01/06/2025 024, 11/02/2023, 08/18/2022, Additional history exists CKD HGB USE SMARTSET 65003 02/26/202502/26, 02/27/2024, 11/06/2023, Additional history exists TSH 02/26/2025 02/27/2024, 02/12, 01/19/2023, Additional history exists DTaP,Tdap,and Td Vaccines (3 - Td or Tdap) 05/15/2032 05/15/2022, 04/03/2015, 05/03/2008, Additional history exists Pneumococcal Vaccine: 65+ Years Completed 01/02/2016, 05/03/2008 VITAMIN D LEVEL ONCE IN A LIFETIME-USE SMARTSET# 89567 Completed 02/27/2024, 01/19/2023, 05/27/2022, Additional history exists [...] this encounter Medical Devices Implanted Type Area Skiing Instructor Device Identifier Shelf Expiration Date Model / Serial / Lot Lens Intraoc 22.0 - [id number] - [id number] Implanted:Qty: 1 on 01/15/2020 by Delta Johansen MD at OR [facility] Left: Eye BA[employer]CH [employer] LOMB 09/13/2024 [id number] / [id number] / Lens Intraoc 22.0 - [id number] - [id number] Implanted:Qty: 1 on 01/22/2020 by Delta Johansen MD at OR [facility] Right: Eye BAUSCH [employer] LOMB 02/12/2024 [id number] / [id number] / [id number] documented as of this encounter Care Teams In Home Tutor Relationship Specialty Start Date End Date Tristan Conde MD [address] [place] [address] PCP - General 01/10/03 documented as of this encounter
--- OUTSIDE RECORDS SUMMARY | 2024-09-03 19:58 | External Medical Summary | Summary of Care ---
Author Name Unknown Organization [facility] Address [address] [place] [address] Phone [phone] Care Team Providers Care Quality Intern Name Role Phone Tristan oCnde MD Primary Care Provider +1- [phone] Reason for Visit * Reason Onset Date Comments Medication Refill 05/25/2024 Encounter Details Date Type Department Care Team ([facility] st Contact Info) Description 05/25/2024 Telephone [facility], [place] [address] [place] [address] Anne Alcocer PA-C [address] [place] [address] Medication Refill Allergies No known active allergiesdocumented as of this encounter (statuses as of 05/25/2024) Medications Medication Sig Dispensed Refills Start Date [...] PLMS And RLS 90 Tab 8 Active ferrous sulfate (FEOSOL) 325 (65 FE) MG Tablet Take 1 tab twice per day 180 Tab 1 0 Active Additional Information Patient taking differently: 325 mg Oral BREAKFAST, Take 1 tab daily, Reported on 02/28/2023 Saccharomyces boulardii 250 MG Oral Capsule (Florastor)Indicatio [...] for Pain, Severe. 180 Tablet 3 Active Amitriptyline HCl 25 MG Oral Tablet (Elavil)Indications: Persistent insomnia,New daily persistent headache TAKE 1 TABLET EVERY NIGHT 1 HOUR BEFORE BEDTIME 90 Tablet 1 3 Active LORazepam 0.5 MG Oral Tablet (Ativan)Indications: Diarrhea, [...] with food. 180 Tablet 3 4 Active busPIRone HCl 15 MG Oral Tablet (Buspar) Take 1 Tablet by mouth in the morning and 1 Tablet at noon and 1 Tablet before bedtime. 270 Tablet 1 4 Active Gabapentin 400 MG Oral Capsule (Neurontin)Indicatio ns:Arthralgia, unspecified joint Take 1 Capsule by mouth in the morning and 1 Capsule at noon and 1 Capsule before bedtime. 270 Capsule 1 4 Active Colestipol HCl 1 GM Oral Tablet (Colestid)Indication s:Irritable bowel syndrome with diarrhea Take 2 Tablets by mouth in the morning and 2 Tablets before bedtime. Take extra table on days with diarrhea for max of 5 per day. 450 Tablet 3 4 Active Apixaban 5 MG Oral Tablet (Eliquis) Take 1 Tablet by mouth in the morning and 1 Tablet before bedtime. 180 Tablet 1 4 Active Levothyroxine Sodium 125 MCG Oral Tablet (Levoxyl)Indications :Other specified hypothyroidism Take 1 Tablet by mouth in the morning. (at least 30 min prior to breakfast or other meds). 90 Tablet 1 4 Active Clotrimazole 1 % Vaginal CreamIndications:Vag luisa itching Apply a pea sized dollop to vaginal entrance and labia at bedtime nightly 45 g 3 4 Active Nystatin 418840 UNIT/GM External Powder (Nystop) Apply topically to affected area 3 times a day. Apply to abdominal folds 60 g 1 4 Active Pramipexole Dihydrochloride 0.25 MG Oral Tablet (Mirapex)Indications :Restless legs syndrome TAKE 1 TABLET IN THE AFTERNOON AND 2 TABLETS AT BEDTIME 270 Tablet 3 4 Active Diphenoxylate-Atropi ne 2.5-0.025 MG Oral Tablet (Lomotil)Indications :Diarrhea, unspecified type Take 1 Tablet by mouth every 6 hours as needed for Diarrhea. 30 Tablet 1 4 Active Potassium Chloride Kadie ER 20 MEQ Oral Tablet Extended Release Take 1 Tablet by mouth in the morning and 1 Tablet before bedtime. 120 Tablet 4 Active Potassium Chloride Kadie ER 20 MEQ Oral Tablet Extended Release Take 1 Tablet by mouth in the morning and 1 Tablet before bedtime. 180 Tablet 3 4 07/22/20 24 Active Vitamin D (Ergocalciferol) 1.25 MG (31446 UT) Oral Capsule (Drisdol) TAKE 1 CAPSULE ONCE WEEKLY 12 Capsule 1 4 Active Vitamin D (Ergocalciferol) 1.25 MG (32440 UT) Oral Capsule (Drisdol) TAKE 1 CAPSULE ONCE WEEKLY 12 Capsule 3 4 05/25/20 24 Discontinu ed(Refill) documented as of this encounter (statuses as of 05/25/2024) Active Problems Problem Noted Date Diagnosed Date [...] as of this encounter (statuses as of 05/25/2024) Resolved Problems Problem Noted Date Diagnosed Date [...] as of this encounter (statuses as of 05/25/2024) Immunizations Name Administration Dates Next Due COVID-19 [...] 11:00 AM EDT Telemedicine [facility], [place] [address] [place] [address] Anne Alcocer PA-C [address] [place], [place] [address] Barbara Butt, Community Health Costing Analyst [address] [place] [address] Scheduled Procedures Name Priority Associated [...] Additional history exists CKD PHOS USE SMARTSET 75431 08/25/202408/14, 09/30/2022, 04/03/2020, Additional history exists GFR 08/28/2024 02/27/2024, 10/15, 08/25/2023, Additional history exists Depression Monitoring 09/30/2024 09/30/2023 Albumin/Creatinine Ratio 01/06/2025 024, 11/02/2023, 08/18/2022, Additional history exists CKD HGB USE SMARTSET 76285 02/26/202502/26, 02/27/2024, 11/06/2023, Additional history exists TSH 02/26/2025 02/27/2024, 02/12, 01/19/2023, Additional history exists DTaP,Tdap,and Td Vaccines (3 - Td or Tdap) 05/15/2032 05/15/2022, 04/03/2015, 05/03/2008, Additional history exists Pneumococcal Vaccine: 65+ Years Completed 01/02/2016, 05/03/2008 VITAMIN D LEVEL ONCE IN A LIFETIME-USE SMARTSET# 70129 Completed 02/27/2024, 01/19/2023, 05/27/2022, Additional history exists [...] this encounter Medical Devices Implanted Type Area Operations Technician Device Identifier Shelf Expiration Date Model / Serial / Lot Lens Intraoc 22.0 - [id number] - [id number] Implanted:Qty: 1 on 01/15/2020 by Delta Johansen MD at OR [facility] Left: Eye BAUSCH & LOMB 09/13/2024 [id number] / [id number] / Lens Intraoc 22.0 - [id number] - [id number] Implanted:Qty: 1 on 01/22/2020 by Delta Johansen MD at OR [facility] Right: Eye BAUSCH & LOMB 02/12/2024 [id number] / [id number] / [id number] documented as of this encounter Care Teams Quality Intern Relationship Specialty Start Date End Date Tristan Conde MD [address] [place] [address] PCP - General 01/10/03 documented as of this encounter
--- OUTSIDE RECORDS SUMMARY | 2024-09-03 19:58 | External Medical Summary | Summary of Care ---
Author Name Unknown Organization [facility] Address [address] [place] [address] Phone [phone] Care Team Providers Care Senior Director Marketing Name Role Phone Tristan Conde MD Primary Care Provider +1- [phone] Reason for Visit * Reason Comments [facility]: Telehealth Encounter Details Date Type Department Care Team (Late st Contact Info) Description 04/19/2024 11:00 AM EDT Telemedicine [facility], [address] [place] [address] Anne Alcocer PA-C [address] [place] [address] Barbara Butt, Community Health Commercial Real Estate Broker [address] [place] [address] Chronic diastolic heart failure with preserved ejection fraction (HCC)*; Lymphedema; Hypertensive kidney disease with stage 3a chronic kidney disease; Multiple opens wound of lower extremity, unspecified laterality, initial encounter Allergies No known active allergiesdocumented as of this encounter (statuses as of 04/23/2024) Medications Medication Sig Dispensed Refills Start Date [...] 02/23/2024 Active Vitamin D (Ergocalciferol) 1.25 MG (89353 UT) Oral Capsule (Drisdol) TAKE 1 CAPSULE [...] nightly 45 g 3 02/23/2024 Active Nystatin 073993 UNIT/GM External Powder (Nystop) Apply topically to [...] as of this encounter (statuses as of 04/23/2024) Active Problems Problem Noted Date Diagnosed Date [...] as of this encounter (statuses as of 04/23/2024) Resolved Problems Problem Noted Date Diagnosed Date [...] as of this encounter (statuses as of 04/23/2024) Immunizations Name Administration Dates Next Due COVID-19 [...] money to get more. Never true 11/09/2023 Sex and Gender Information Value Date Recorded Sex Assigned at Not on file Gender Identity Not on file Sexual Orientation Not on file Job Start Date Occupation Industry Not on file Not on file Not on file documented as of this encounter Last Filed Vital Signs Vital Sign Reading Time Taken Comments Blood Pressure 140/70 04/19/2024 11:03 AM EDT Pulse 63 04/19/2024 11:03 AM EDT Temperature 36.3 C (97.3 F) 04/19/2024 11:03 AM E DT Respiratory Rate - - Oxygen Saturation 97% 04/19/2024 11:03 AM EDT Inhaled Oxygen Concentration - - Weight 109.8 kg (242 lb) 04/19/2024 11:03 AM EDT Height - - Body Mass Index 47.26 07/27/2023 3:14 PM EDT documented in this encounter Progress Notes * Anne Alcocer PA-C - 04/19/2024 11:20 AM EDT [facility] Provider Telemedicine Visit Date: 04/19/2024 Time: 11:20 AM Assessment/Plan: 1. Chronic diastolic heart failure with preserved ejection fraction (HCC) Patient has increased dose of Bumex as she has had increased LE edema. Nephrology guidelines listedbelow 2. Lymphedema 3. Hypertensive kidney disease with stage 3a chronic kidney disease Stable 4. Multiple opens wound of lower extremity, unspecified laterality, initial encounter HH coming once a week. No cellulitis noted on exam today Follow up plan: Will follow up in 6 weeks. Patient has open wounds to her legs still. HH coming once weekly for wound care. No S/S of infection today. Advised to reach out if any A total of 35 minutes was spent face to face via video-based telemedicine. Subjective Patient location: HOME. I was not in a hospital or clinic location. After connecting through televideo, patient was verified with two unique identifiers. Patient (or authorized legal marketing representative) was then informed that this was a Telemedicine visit and being conducted confidentially over secure lines. Methods to assure confidentiality were taken. Patient acknowledged consent and understanding of privacy and security of the Telemedicine visit. The patient agreed to participate. Reason for Visit: Follow-Up Current Concerns: Asuncion Garcia is a 79 year old female seen today for a [facility] Telemedicine Provider Visit. Date of last known acute care visit: 03/21/24 with myself Reason for last known acute [...] mg TID. Today's concerns are: Patient states she is doing ok. She has been gaining weight. Unsure if some of the weigh is flesh weight. Today was 242 lbs. She is taking Bumex 1 mg TID and feels it is keeping the edema down. She has LE edema and wounds present. Some mild weeping. HH is coming once a week for bandaging and leaving her with supplies. No increased pain/redness or heat to the LE's. She feels well overall. Appetiteis good. No changes noted in breathing. Bowel and urinary habits are at baseline. She isn't walkingaround much due to the edema and wounds to LE's. She has a stye to the right eye that has been present for a couple days. No redness to the conjunctiva or drainage from the area. ROS: See HPI Objective Physical Exam: BP 140/70 (BP Site: Left Arm, BP Position: Sitting, BP Cuff Size: Large) | Pulse 63 | Temp 36.3 C(97.3 F) (Infrared ) | SpO2 97% Previous Wts: Wt Readings from Last 5 Encounters: 12/16/23 113.3 kg (249 lb 12.8 oz) 07/27/23 108.8 kg (239 lb 12.8 oz) 05/23/23 112.9 kg (249 lb) 05/23/23 112.9 kg (249 lb) 04/05/23 122.9 kg (271 lb) Previous BPs: BP Readings from Last 5 Encounters: 04/19/24 140/70 03/21/24 104/60 02/20/24 124/78 12/16/23 116/64 07/27/23 102/82 Physical Exam Constitutional: General: She is not in acute distress. HENT: Head: Normocephalic and atraumatic. Nose: Nose normal. Mouth/Throat: Pharynx: Oropharynx is clear. Eyes: Extraocular Movements: Extraocular movements intact. Conjunctiva/sclera: Conjunctivae normal. Cardiovascular: Rate and Rhythm: Normal rate and regular rhythm. Pulmonary: Effort: Pulmonary effort is normal. No respiratory distress. Breath sounds: Normal breath sounds. Abdominal: General: Bowel sounds are normal. Musculoskeletal: General: Swelling present. Comments: + edema noted bilaterally, large open wounds present to the anterolateral surface of the LE"s Neurological: General: No focal deficit present. Mental [...] 1 Tablet before bedtime. 180 Tablet 1 Vitamin D (Ergocalciferol) 1.25 MG (71033 UT) Oral Capsule (Drisdol) TAKE 1 CAPSULE ONCE WEEKLY 12 Capsule 3 Levothyroxine Sodium 125 MCG Oral Tablet (Levoxyl) Take 1 Tablet by mouth in the morning. (at least30 min prior to breakfast or other meds). 90 Tablet 1 Clotrimazole 1 % Vaginal Cream Apply a pea sized dollop to vaginal entrance and labia at bedtime nightly 45 g 3 Nystatin 073983 UNIT/GM External Powder (Nystop) Apply topically to affected area 3 times a day. Apply to abdominal folds 60 g 1 Pramipexole Dihydrochloride 0.25 MG Oral Tablet (Mirapex) TAKE 1 TABLET IN THE AFTERNOON AND 2 TABLETS AT BEDTIME 270 Tablet 3 Diphenoxylate-Atropine 2.5-0.025 MG Oral Tablet (Lomotil) Take 1 Tablet by mouth every 6 hours as needed for Diarrhea. 30 Tablet 1 No current facility-administered medications for this visit. Mobility Evaluation: MACH10 Assessment: Assistive Devices Used in the Home: Walker (standard or rollator) Recent Falls: Falls in the last 6 months: Yes - When last fall occurred: last month Depression Screening: PHQ2 Depression Screening PHQ-2 & JOSE-2 assessment Social Determinants of Health Screening: SDoH Screening Tool Social Determinants of Health Tobacco Use: Low Risk (12/26/2023) Patient History Smoking Tobacco Use: Never Smokeless Tobacco Use: Never Passive Exposure: Not on file Alcohol Use: Not At Risk (11/12/2018) Received from [facility] Frequency of Alcohol Consumption: Never Average Number of Drinks: Not on file Frequency of Binge Drinking: Not on file Financial Resource Strain: Not on file Food Insecurity: No Food Insecurity (11/09/2023) Hunger Vital Sign Worried About Running Out of Food in the Last Year: Never true Ran Out of Food in the Last Year: Never true Transportation Needs: Not on file Physical Activity: Not on file Stress: Not on file Social Connections: Not on file Intimate Partner Violence: Not on file Depression: Not at risk (09/30/2023) PHQ-2 PHQ-2 Score: 0 Housing Stability: Not on file Anne Cano PA-C 11:20 AM *Communication sent to PCP (via [email or web address] if non-ising), Population Health Care Team members, relevant Specialty Care Physicians* * Barbara Butt Community Health Commercial Real Estate Broker - 04/19/2024 11:03 AM EDT Telemedicine visit: Yes Patient location: HOME. I was not in a hospital or clinic location. After connecting through televideo, patient was verified with two unique identifiers. Patient (or authorized legal marketing representative) was then informed that this was a Telemedicine visit and being conducted confidentially over secure lines. Methods to assure confidentiality were taken. Patient acknowledged consent and understanding of privacy and security of the Telemedicine visit. The patient agreed to participate. Community Health Commercial Real Estate Broker (JOHN) documentation: CHW facilitated telehealth visit with provider Perla Butt- Community Health Worker 1 Support Services/[facility] [email or web address] documented in this encounter Plan of Treatment Upcoming Encounters Date Type Department Care Team (Late st Contact Info) Description 06/01/2024 11:00 AM EDT Telemedicine [facility], [address] [place] [address] Anne Alcocer PA-C [address] [place] [address] Barbara Butt, Community Health Commercial Real Estate Broker [address] [place] [address] Scheduled Procedures Name Priority Associated Diagnoses Date/Ti [...] Vaccine ( season) 2023 11/10/2021, 01/21/2021, 12/31/2020 CKD PHOS USE SMARTSET 32747 08/25/202408/14, 09/30/2022, 04/03/2020, Additional history exists GFR 08/28/2024 02/27/2024, 10/15, 08/25/2023, Additional history exists Albumin/Creatinine Ratio 01/06/2025 024, 11/02/2023, 08/18/2022, Additional history exists CKD HGB USE SMARTSET 04214 02/26/202502/26, 02/27/2024, 11/06/2023, Additional history exists TSH 02/26/2025 02/27/2024, 02/12, 01/19/2023, Additional history exists DTaP,Tdap,and Td Vaccines (3 - Td or Tdap) 05/15/2032 05/15/2022, 04/03/2015, 05/03/2008, Additional history exists Pneumococcal Vaccine: 65+ Years Completed 01/02/2016, 05/03/2008 Influenza Vaccine (FLU shot) Completed , 08/18/2022, 08/18/2022, Additional history exists VITAMIN D LEVEL ONCE IN A LIFETIME-USE SMARTSET# 75648 Completed 02/27/2024, 01/19/2023, 05/27/2022, Additional history exists GARDASIL-HPV IMMUNIZATION SERIES Aged Out No longer eligible based on patient's age to complete this topic Hepatitis B Aged Out No longer eligi ble based on patient's age to complete this topic MENINGOCOCCAL (MENACTRA/MENVEO) Aged Out No longer eligible based on patient's age to complete this topic documented as of this encounter Medical Devices Implanted Type Area Network Associate Device Identifier Shelf Expiration Date Model / Serial / Lot Lens Intraoc 22.0 - [id number] - [id number] Implanted:Qty: 1 on 01/15/2020 by Delta Johansen MD at OR [facility] Left: Eye BAUSCH & LOMB 09/13/2024 [id number] / [id number] / Lens Intraoc 22.0 - [id number] - [id number] Implanted:Qty: 1 on 01/22/2020 by Delta Johansen MD at OR [facility] Right: Eye BAUSCH & LOMB 02/12/2024 [id number] / [id number] / [id number] documented as of this encounter Visit Diagnoses Diagnosis Chronic diastolic heart failure with preserved ejection fraction (HCC)- Primary Lymphedema Other lymphedema Hypertensive kidney disease with stage 3a chronic kidney disease Multiple opens wound of lower extremity, unspecified laterality, initial encounter documented in this encounter Care Teams Senior Director Marketing Relationship Specialty Start Date End Date Tristan Conde MD [address] [place] [address] PCP - General 01/10/03 documented as of this encounter
--- OUTSIDE RECORDS SUMMARY | 2024-09-03 19:58 | External Medical Summary | Summary of Care ---
Author Name Unknown Organization [facility] Address [address] [place] [address] Phone [phone] Care Team Providers Care Biologics Specialist Name Role Phone Tristan Conde MD Primary Care Provider +1- [phone] Reason for Visit * Reason Onset Date Comments FYI 06/04/2024 Encounter Details Date Type Department Care Team (Late st Contact Info) Description 06/04/2024 Telephone [facility] [address] [place] [address] Tristan Conde MD [address] [place] [address] FYI Allergies No known active allergiesdocumented as of this encounter (statuses as of 06/07/2024) Medications Medication Sig Dispensed Refills Start Date [...] nightly 45 g 3 02/23/2024 Active Nystatin 668105 UNIT/GM External Powder (Nystop) Apply topically to [...] 04/23/2024 Active Vitamin D (Ergocalciferol) 1.25 MG (25462 UT) Oral Capsule (Drisdol) TAKE 1 CAPSULE ONCE WEEKLY 12 Capsule 1 05/25/2024 Active documented as of this encounter (statuses as of 06/07/2024) Active Problems Problem Noted Date Diagnosed Date [...] as of this encounter (statuses as of 06/07/2024) Resolved Problems Problem Noted Date Diagnosed Date [...] as of this encounter (statuses as of 06/07/2024) Immunizations Name Administration Dates Next Due COVID-19 mRNA, LNP-s, No Pre serve, 2-Dose Series (makerist) 11/10/2021,01/21/2021,12/31/2020 Pneumococcal Conjugate Vacc, 13 Valent (Prevnar) [...] 2:01 PM EDT Pt is staying with [facility] for another 60 day cycle and they need a a wound care order forbilateral lower legs to a boot. Please advise. * Telephone Encounter - Jerson Wood MED ASSIST - 06/04/2024 12:48 PM EDT Received fax from [employer] requesting order review and signature. Please fax back to [phone] documented in this encounter Plan of Treatment Upcoming Encounters Date Type Department Care Team (Late st Contact Info) Description 06/21/2024 2:30 PM EDT Telemedicine [facility] [address] [place] [address] Anne Alcocer PA-C [address] [place] [address] Barbara Butt, Community Health Baby Sitter [address] [place] [address] Scheduled Procedures Name Priority Associated Diagnoses Date/Ti [...] Additional history exists CKD PHOS USE SMARTSET 35249 08/25/202408/14, 09/30/2022, 04/03/2020, Additional history exists GFR 08/28/2024 02/27/2024, 10/15, 08/25/2023, Additional history exists Depression Monitoring 09/30/2024 09/30/2023 Albumin/Creatinine Ratio 01/06/2025 024, 11/02/2023, 08/18/2022, Additional history exists CKD HGB USE SMARTSET 44024 02/26/202502/26, 02/27/2024, 11/06/2023, Additional history exists TSH 02/26/2025 02/27/2024, 02/12, 01/19/2023, Additional history exists DTaP,Tdap,and Td Vaccines (3 - Td or Tdap) 05/15/2032 05/15/2022, 04/03/2015, 05/03/2008, Additional history exists Pneumococcal Vaccine: 65+ Years Completed 01/02/2016, 05/03/2008 VITAMIN D LEVEL ONCE IN A LIFETIME-USE SMARTSET# 74580 Completed 02/27/2024, 01/19/2023, 05/27/2022, Additional history exists [...] this encounter Medical Devices Implanted Type Area Bomb Technician Device Identifier Shelf Expiration Date Model / Serial / Lot Lens Intraoc 22.0 - [id number] - [id number] Implanted:Qty: 1 on 01/15/2020 by Delta Johansen MD at [facility] Left: Eye BAUSCH & LOMB 09/13/2024 [id number] / [id number] / Lens Intraoc 22.0 - [id number] - [id number] Implanted:Qty: 1 on 01/22/2020 by Delta Johansen MD at OR [facility] Right: Eye BAUSCH & LOMB 02/12/2024 [id number] / [id number] / [id number] documented as of this encounter Care Teams Biologics Specialist Relationship Specialty Start Date End Date Tristan Conde MD [address] [place] [address] PCP - General 01/10/03 documented as of this encounter
--- OUTSIDE RECORDS SUMMARY | 2024-09-03 19:58 | External Medical Summary | Summary of Care ---
Author Name Unknown Organization [facility] Address [address] [place] [address] Phone [phone] Care Team Providers Care Cleaning Team Member Name Role Phone Tristan Conde MD Primary Care Provider +1- [phone] Reason for Visit * Reason Onset Date Comments FYI 06/04/2024 Encounter Details Date Type Department Care Team (Late st Contact Info) Description 06/04/2024 Telephone [facility] [address] [place] [address] Tristan Conde MD [address] [place] [address] FYI Allergies No known active allergiesdocumented as of this encounter (statuses as of 06/12/2024) Medications Medication Sig Dispensed Refills Start Date [...] nightly 45 g 3 02/23/2024 Active Nystatin 988427 UNIT/GM External Powder (Nystop) Apply topically to [...] 04/23/2024 Active Vitamin D (Ergocalciferol) 1.25 MG (51895 UT) Oral Capsule (Drisdol) TAKE 1 CAPSULE ONCE WEEKLY 12 Capsule 1 05/25/2024 Active documented as of this encounter (statuses as of 06/12/2024) Active Problems Problem Noted Date Diagnosed Date [...] as of this encounter (statuses as of 06/12/2024) Resolved Problems Problem Noted Date Diagnosed Date [...] as of this encounter (statuses as of 06/12/2024) Immunizations Name Administration Dates Next Due COVID-19 mRNA, LNP-s, No Pre serve, 2-Dose Series (Mithridion) 11/10/2021,01/21/2021,12/31/2020 Pneumococcal Conjugate Vacc, 13 Valent (Prevnar) [...] 2:01 PM EDT Pt is staying with [facility] for another 60 day cycle and they need a a wound care order forbilateral lower legs to a boot. Please advise. * Telephone Encounter - Jerson Wood MED ASSIST - 06/04/2024 12:48 PM EDT Received fax from [employer] requesting order review and signature. Please fax back to [phone] documented in this encounter Plan of Treatment Upcoming Encounters Date Type Department Care Team (Late st Contact Info) Description 06/21/2024 2:30 PM EDT Telemedicine [facility], [place] [address] [place] [address] Anne Alcocer PA-C [address] [place] [address] Barbara Butt, Community Health Nutrition Intern [address] [place] [address] Scheduled Procedures Name Priority Associated Diagnoses Date/Ti [...] Additional history exists CKD PHOS USE SMARTSET 19565 08/25/202408/14, 09/30/2022, 04/03/2020, Additional history exists GFR 08/28/2024 02/27/2024, 10/15, 08/25/2023, Additional history exists Depression Monitoring 09/30/2024 09/30/2023 Albumin/Creatinine Ratio 01/06/2025 024, 11/02/2023, 08/18/2022, Additional history exists CKD HGB USE SMARTSET 86938 02/26/202502/26, 02/27/2024, 11/06/2023, Additional history exists TSH 02/26/2025 02/27/2024, 02/12, 01/19/2023, Additional history exists DTaP,Tdap,and Td Vaccines (3 - Td or Tdap) 05/15/2032 05/15/2022, 04/03/2015, 05/03/2008, Additional history exists Pneumococcal Vaccine: 65+ Years Completed 01/02/2016, 05/03/2008 VITAMIN D LEVEL ONCE IN A LIFETIME-USE SMARTSET# 48946 Completed 02/27/2024, 01/19/2023, 05/27/2022, Additional history exists [...] this encounter Medical Devices Implanted Type Area Stepdown Nurse Device Identifier Shelf Expiration Date Model / Serial / Lot Lens Intraoc 22.0 - [id number] - [id number] Implanted:Qty: 1 on 01/15/2020 by Delta Johansen MD at OR [facility] Left: Eye BAUSCH & LOMB 09/13/2024 [id number] / [id number] / Lens Intraoc 22.0 - [id number] - [id number] Implanted:Qty: 1 on 01/22/2020 by Delta Johansen MD at OR [facility] Right: Eye BAUSCH & LOMB 02/12/2024 [id number] / [id number] documented as of this encounter Care Teams Cleaning Team Member Relationship Specialty Start Date End Date Tristan Conde MD [address] [place] [address] PCP - General 01/10/03 documented as of this encounter
--- OUTSIDE RECORDS SUMMARY | 2024-09-03 19:58 | External Medical Summary | Summary of Care ---
Author Name Unknown Organization [facility] Address [address] [place] [address] Phone [phone] Care Team Providers Care Voltmeter Operator Name Role Phone Tristan Conde MD Primary Care Provider +1- [phone] Reason for Visit * Reason Onset Date Comments Medication Refill 04/23/2024 Encounter Details Date Type Department Care Team ([facility] st Contact Info) Description 04/23/2024 Telephone [facility] [place] [address] [place] [address] Anne Alcocer PA-C [address] [place] [address] Medication Refill Allergies No known [...] 02/23/2024 Active Vitamin D (Ergocalciferol) 1.25 MG (36661 UT) Oral Capsule (Drisdol) TAKE 1 CAPSULE [...] nightly 45 g 3 02/23/2024 Active Nystatin 537300 UNIT/GM External Powder (Nystop) Apply topically to [...] bedtime. 120 Tablet 04/23/2024 Active Potassium Chloride Kadei ER 20 MEQ Oral Tablet Extended Release [...] Telephone Encounter - Anne Alcocer PA-C - 04/23/2024 11:14 AM EDT Patient states she never received her Rx for potassium. She is requesting a script be sent to [facility] until she can't get the normal script filled at the end of May in [place]. documented in this encounter Plan of Treatment Upcoming Encounters Date Type Department Care Team (Late st Contact Info) Description 06/01/2024 11:00 AM EDT [facility] [address] [place] [address] Anne Alcocer PA-C [address] [place] [address] Barbara Butt, Community Health Professional Skater [address] [place] [address] Scheduled Procedures Name Priority Associated Diagnoses Date/Ti [...] 11/10/2021, 01/21/2021, 12/31/2020 CKD PHOS USE SMARTSET 76085 08/25/202408/14, 09/30/2022, 04/03/2020, Additional history exists GFR 08/28/2024 02/27/2024, 10/15, 08/25/2023, Additional history exists Depression Monitoring 09/30/2024 09/30/2023 Albumin/Creatinine Ratio 01/06/2025 024, 11/02/2023, 08/18/2022, Additional history exists CKD HGB USE SMARTSET 30651 02/26/202502/26, 02/27/2024, 11/06/2023, Additional history exists TSH 02/26/2025 02/27/2024, 02/12, 01/19/2023, Additional history exists DTaP,Tdap,and Td Vaccines (3 - Td or Tdap) 05/15/2032 05/15/2022, 04/03/2015, 05/03/2008, Additional history exists Pneumococcal Vaccine: 65+ Years Completed 01/02/2016, 05/03/2008 Influenza Vaccine (FLU shot) Completed , 08/18/2022, 08/18/2022, Additional history exists VITAMIN D LEVEL ONCE IN A LIFETIME-USE SMARTSET# 23878 Completed 02/27/2024, 01/19/2023, 05/27/2022, Additional history exists [...] this encounter Medical Devices Implanted Type Area Evaluation Engineer Device Identifier Shelf Expiration Date Model / Serial / Lot Lens Intraoc 22.0 - [id number] - [id number] Implanted:Qty: 1 on 01/15/2020 by Delta Johansen MD at [facility] Left: Eye BAUSCH & LOMB 09/13/2024 [id number] / [id number] / Lens Intraoc 22.0 - [id number] - [id number] Implanted:Qty: 1 on 01/22/2020 by Delta Johansen MD at OR [facility] Right: Eye BAUSCH & LOMB 02/12/2024 [id number] / [id number] / [id number] documented as of this encounter Care Teams Voltmeter Operator Relationship Specialty Start Date End Date Tristan Conde MD [address] [place] [address] PCP - General 01/10/03 documented as of this encounter
--- OUTSIDE RECORDS SUMMARY | 2024-09-03 19:58 | External Medical Summary | Summary of Care ---
Author Name Unknown Organization [facility] Address [address] [place] [address] Phone [phone] Care Team Providers Care Hogshead Dumper Name Role Phone Tristan Conde MD Primary Care Provider +1- [phone] Reason for Visit * Reason Onset Date Comments Order Request 05/28/2024 Encounter Details Date Type Department Care Team (Late st Contact Info) Description 05/28/2024 Telephone [facility] [address] [place] [address] Tristan Conde MD [address] [place] [address] Order Request Allergies No known active allergiesdocumented as of this encounter (statuses as of 06/04/2024) Medications Medication Sig Dispensed Refills Start Date [...] nightly 45 g 3 02/23/2024 Active Nystatin 712295 UNIT/GM External Powder (Nystop) Apply topically to [...] 04/23/2024 Active Vitamin D (Ergocalciferol) 1.25 MG (28116 UT) Oral Capsule (Drisdol) TAKE 1 CAPSULE ONCE WEEKLY 12 Capsule 1 05/25/2024 Active documented as of this encounter (statuses as of 06/04/2024) Active Problems Problem Noted Date Diagnosed Date [...] as of this encounter (statuses as of 06/04/2024) Resolved Problems Problem Noted Date Diagnosed Date [...] as of this encounter (statuses as of 06/04/2024) Immunizations Name Administration Dates Next Due COVID-19 mRNA, LNP-s, No Pre serve, 2-Dose Series ([employer]) 11/10/2021,01/21/2021,12/31/2020 Pneumococcal Conjugate Vacc, 13 Valent (Prevnar) [...] Encounter - Jerson Wood MED ASSIST - 05/31/2024 3:28 PM EDT Received order request. Placed on providers desk awaiting signature and date. Fax back to [phone] * Telephone Encounter - Elza Lee LPN - 05/31/2024 9:28 AM EDT Patient calling. She is unable to get out of the house since she came back home in January from rehab. Physical therapy comes once a week. She would love to get out of the house and come in the office. She does have [facility]. Able to do a telemedicine appointment. Is a video appt okay? Or should she wait until Dr. Conde's return next week? * Telephone Encounter - Chelly Cavazos LPN - 05/31/2024 9:18 AM EDT Attempted to call patient, no answer lm that I was calling in regards to patient and asked for a return call. If patient calls back please inform of information from Lily Parham. * Telephone Encounter - Lily Parham PA-C - 05/30/2024 4:49 PM EDT Have not seen patient since December so orders will have to wait until Dr Sharma is back OR she will need seen Lily Parham PA-C * Telephone Encounter - Chelly Cavazos LPN - 05/29/2024 11:06 AM EDT Please advise, would you suggest patient be seen in the office to begin with? * Telephone Encounter - Lesa Johnson OSA - 05/29/2024 10:40 AM EDT Pt needs [facility] for [facility] @ [phone] EULA Angelia Pt also needs UNNA boots. Pt has an increase in drainage and wound size with currant orders * Telephone Encounter - Jerson Wood MED ASSIST - 05/28/2024 3:30 PM EDT [email or web address], awaiting for signature date and fax back to [phone]. documented in this encounter Plan of Treatment Upcoming Encounters Date Type Department Care Team (Late st Contact Info) Description 06/21/2024 2:30 PM EDT Telemedicine [facility] [place] [address] [place] [address] Anne Alcocer PA-C [address] [place] [address] Barbara Butt, Community Health Brush Worker [address] [place] [address] Scheduled Procedures Name Priority Associated Diagnoses Date/Ti [...] Additional history exists CKD PHOS USE SMARTSET 29840 08/25/202408/14, 09/30/2022, 04/03/2020, Additional history exists GFR 08/28/2024 02/27/2024, 10/15, 08/25/2023, Additional history exists Depression Monitoring 09/30/2024 09/30/2023 Albumin/Creatinine Ratio 01/06/2025 024, 11/02/2023, 08/18/2022, Additional history exists CKD HGB USE SMARTSET 96631 02/26/202502/26, 02/27/2024, 11/06/2023, Additional history exists TSH 02/26/2025 02/27/2024, 02/12, 01/19/2023, Additional history exists DTaP,Tdap,and Td Vaccines (3 - Td or Tdap) 05/15/2032 05/15/2022, 04/03/2015, 05/03/2008, Additional history exists Pneumococcal Vaccine: 65+ Years Completed 01/02/2016, 05/03/2008 VITAMIN D LEVEL ONCE IN A LIFETIME-USE SMARTSET# 27287 Completed 02/27/2024, 01/19/2023, 05/27/2022, Additional history exists [...] this encounter Medical Devices Implanted Type Area Exam Proctor Device Identifier Shelf Expiration Date Model / Serial / Lot Lens Intraoc 22.0 - [id number] - [id number] Implanted:Qty: 1 on 01/15/2020 by Delta Johansen MD at OR [facility] Left: Eye BAUSCH & LOMB 09/13/2024 [id number] / [id number] / Lens Intraoc 22.0 - [id number] - [id number] Implanted:Qty: 1 on 01/22/2020 by Delta Johansen MD at OR [facility] Right: Eye BAUSCH & LOMB 02/12/2024 [id number] / [id number] / [id number] documented as of this encounter Care Teams Hogshead Dumper Relationship Specialty Start Date End Date Tristan Conde MD [address] [facility] [place] [address] PCP - General 01/10/03 documented as of this encounter
--- OUTSIDE RECORDS SUMMARY | 2024-09-03 19:58 | External Medical Summary | Summary of Care ---
Author Name Unknown Organization [facility] Address [address] [place] [address] Phone [phone] Care Team Providers Care Family Counselor Name Role Phone Tristan Conde MD Primary Care Provider +1- [phone] Reason for Visit * Reason Onset Date Comments FYI 06/04/2024 Encounter Details Date Type Department Care Team (Late st Contact Info) Description 06/04/2024 Telephone [facility] [address] [place] [address] Tristan Conde MD [address] [place] [address] FYI Allergies No known active [...] nightly 45 g 3 02/23/2024 Active Nystatin 579987 UNIT/GM External Powder (Nystop) Apply topically to [...] 04/23/2024 Active Vitamin D (Ergocalciferol) 1.25 MG (63296 UT) Oral Capsule (Drisdol) TAKE 1 CAPSULE [...] mRNA, LNP-s, No Pre serve, 2-Dose Series ([employer]) 11/10/2021,01/21/2021,12/31/2020 Pneumococcal Conjugate Vacc, 13 Valent (Prevnar) [...] encounter Miscellaneous Notes * Telephone Encounter - Jennie Florentino OSA - 06/07/2024 2:01 PM EDT Pt is staying with [facility] for another 60 day cycle and they need a a wound care order forbilateral lower legs to a boot. Please advise. * Telephone Encounter - Jerson Wood MED ASSIST - 06/04/2024 12:48 PM EDT Received fax from [employer] requesting order review and signature. Please fax back to [phone] documented in this encounter Plan of Treatment Upcoming Encounters Date Type Department Care Team (Late st Contact Info) Description 06/21/2024 2:30 PM EDT [facility]icine [facility], [place] [address] [place] [address] Anne Alcocer PA-C [address] [place] [address] Barbara Butt, Community Health Venipuncturist [address] [place] [address] Scheduled Procedures Name Priority Associated Diagnoses Date/Ti [...] Additional history exists CKD PHOS USE SMARTSET 83729 08/25/202408/14, 09/30/2022, 04/03/2020, Additional history exists GFR 08/28/2024 02/27/2024, 10/15, 08/25/2023, Additional history exists Depression Monitoring 09/30/2024 09/30/2023 Albumin/Creatinine Ratio 01/06/2025 024, 11/02/2023, 08/18/2022, Additional history exists CKD HGB USE SMARTSET 74740 02/26/202502/26, 02/27/2024, 11/06/2023, Additional history exists TSH 02/26/2025 02/27/2024, 02/12, 01/19/2023, Additional history exists DTaP,Tdap,and Td Vaccines (3 - Td or Tdap) 05/15/2032 05/15/2022, 04/03/2015, 05/03/2008, Additional history exists Pneumococcal Vaccine: 65+ Years Completed 01/02/2016, 05/03/2008 VITAMIN D LEVEL ONCE IN A LIFETIME-USE SMARTSET# 69752 Completed 02/27/2024, 01/19/2023, 05/27/2022, Additional history exists [...] this encounter Medical Devices Implanted Type Area Systems Security Consultant Device Identifier Shelf Expiration Date Model / Serial / Lot Lens Intraoc 22.0 - [id number] - [id number] Implanted:Qty: 1 on 01/15/2020 by Delta Johansen MD at OR [facility] Left: Eye BAUSCH & LOMB 09/13/2024 [id number] / [id number] / Lens Intraoc 22.0 - [id number] - [id number] Implanted:Qty: 1 on 01/22/2020 by Delta Johansen MD at OR [facility] Right: Eye BAUSCH & LOMB 02/12/2024 [id number] / [id number] / [id number] documented as of this encounter Care Teams Family Counselor Relationship Specialty Start Date End Date Tristan Conde MD [address] [place] [address] PCP - General 01/10/03 documented as of this encounter
--- OUTSIDE RECORDS SUMMARY | 2024-09-03 19:58 | External Medical Summary | Summary of Care ---
Author Name Unknown Organization [facility] Address [address] [place] [address] Phone [phone] Care Team Providers Care 4 H Youth Development Specialist Name Role Phone Tristan Conde MD Primary Care Provider +1- [phone] Encounter Details Date Type Department Care Team (Late st Contact Info) Description 06/04/2024 Telephone [facility] [address] [place] [address] Tristan Conde MD [address] [place] [address] Allergies No known active allergiesdocumented as of this encounter (statuses as of 06/06/2024) Medications Medication Sig Dispensed Refills Start Date [...] nightly 45 g 3 02/23/2024 Active Nystatin 427447 UNIT/GM External Powder (Nystop) Apply topically to [...] 04/23/2024 Active Vitamin D (Ergocalciferol) 1.25 MG (26428 UT) Oral Capsule (Drisdol) TAKE 1 CAPSULE ONCE WEEKLY 12 Capsule 1 05/25/2024 Active documented as of this encounter (statuses as of 06/06/2024) Active Problems Problem Noted Date Diagnosed Date [...] as of this encounter (statuses as of 06/06/2024) Resolved Problems Problem Noted Date Diagnosed Date [...] as of this encounter (statuses as of 06/06/2024) Immunizations Name Administration Dates Next Due COVID-19 [...] 06/04/2024 12:48 PM EDT Received fax from [employer] requesting order review and signature. Please fax back to [phone] documented in this encounter Plan of Treatment Upcoming Encounters Date Type Department Care Team (Late st Contact Info) Description 06/21/2024 2:30 PM EDT Telemedicine [facility], [place] [address] [place] [address] Anne Alcocer PA-C [address] [place] [address] Barbara Butt, Community Health Rack Carrier [address] [place] [address] Scheduled Procedures Name Priority Associated [...] Additional history exists CKD PHOS USE SMARTSET 45542 08/25/202408/14, 09/30/2022, 04/03/2020, Additional history exists GFR 08/28/2024 02/27/2024, 10/15, 08/25/2023, Additional history exists Depression Monitoring 09/30/2024 09/30/2023 Albumin/Creatinine Ratio 01/06/2025 024, 11/02/2023, 08/18/2022, Additional history exists CKD HGB USE SMARTSET 67699 02/26/202502/26, 02/27/2024, 11/06/2023, Additional history exists TSH 02/26/2025 02/27/2024, 02/12, 01/19/2023, Additional history exists DTaP,Tdap,and Td Vaccines (3 - Td or Tdap) 05/15/2032 05/15/2022, 04/03/2015, 05/03/2008, Additional history exists Pneumococcal Vaccine: 65+ Years Completed 01/02/2016, 05/03/2008 VITAMIN D LEVEL ONCE IN A LIFETIME-USE SMARTSET# 67062 Completed 02/27/2024, 01/19/2023, 05/27/2022, Additional history exists [...] this encounter Medical Devices Implanted Type Area Industrial Training Specialist Device Identifier Shelf Expiration Date Model / Serial / Lot Lens Intraoc 22.0 - [id number] - [id number] Implanted:Qty: 1 on 01/15/2020 by Delta Johansen MD at OR [facility] Left: Eye BAUSCH & LOMB 09/13/2024 [id number] / [id number] / Lens Intraoc 22.0 - [id number] - [id number] Implanted:Qty: 1 on 01/22/2020 by Delta Johansen MD at OR [facility] Right: Eye BAUSCH & LOMB 02/12/2024 [id number] / [id number] / [id number] documented as of this encounter Care Teams 4 H Youth Development Specialist Relationship Specialty Start Date End Date Tristan Conde MD [address] [place] [address] PCP - General 01/10/03 documented as of this encounter
--- OUTSIDE RECORDS SUMMARY | 2024-09-03 19:58 | External Medical Summary | Summary of Care ---
Author Name Unknown Organization [facility] Address [address] [place] [address] Phone [phone] Care Team Providers Care Neon Pumper Name Role Phone Tristan Conde MD Primary Care Provider +1- [phone] Reason for Visit * Reason Onset Date Comments Appointment 05/30/2024 Encounter Details Date Type Department Care Team (Late st Contact Info) Description 05/30/2024 Telephone [facility] [place] [address] [place], [place] [id number] Katalina Darby, DO [address] [place] [address] Appointment (//) Allergies No known active allergiesdocumented as of this encounter (statuses as of 05/30/2024) Medications Medication Sig Dispensed Refills Start Date [...] nightly 45 g 3 02/23/2024 Active Nystatin 230108 UNIT/GM External Powder (Nystop) Apply topically to [...] 04/23/2024 Active Vitamin D (Ergocalciferol) 1.25 MG (08425 UT) Oral Capsule (Drisdol) TAKE 1 CAPSULE ONCE WEEKLY 12 Capsule 1 05/25/2024 Active documented as of this encounter (statuses as of 05/30/2024) Active Problems Problem Noted Date Diagnosed Date [...] as of this encounter (statuses as of 05/30/2024) Resolved Problems Problem Noted Date Diagnosed Date [...] as of this encounter (statuses as of 05/30/2024) Immunizations Name Administration Dates Next Due COVID-19 mRNA, LNP-s, No Pre serve, 2-Dose Series ([employer]) 11/10/2021,01/21/2021,12/31/2020 Pneumococcal Conjugate Vacc, 13 Valent (Prevnar) [...] Telephone Encounter - Jason Holman OSA - 05/30/2024 10:43 AM EDT Call to pt and confirmed rescheduled kaco ret telemed from 06/01 to 06/21 at 3pm, pt agreeable documented in this encounter Plan of Treatment Upcoming Encounters Date Type Department Care Team (Late st Contact Info) Description 06/21/2024 2:30 PM EDT Telemedicine [facility], [place] [address] [place] [address] Anne Alcocer PA-C [address] [place] [address] Barbara Butt, Community Health Cooler Deliverer [address] [place] [address] Scheduled Procedures Name Priority Associated Diagnoses Date/Ti [...] Additional history exists CKD PHOS USE SMARTSET 48996 08/25/202408/14, 09/30/2022, 04/03/2020, Additional history exists GFR 08/28/2024 02/27/2024, 10/15, 08/25/2023, Additional history exists Depression Monitoring 09/30/2024 09/30/2023 Albumin/Creatinine Ratio 01/06/2025 024, 11/02/2023, 08/18/2022, Additional history exists CKD HGB USE SMARTSET 43336 02/26/202502/26, 02/27/2024, 11/06/2023, Additional history exists TSH 02/26/2025 02/27/2024, 02/12, 01/19/2023, Additional history exists DTaP,Tdap,and Td Vaccines (3 - Td or Tdap) 05/15/2032 05/15/2022, 04/03/2015, 05/03/2008, Additional history exists Pneumococcal Vaccine: 65+ Years Completed 01/02/2016, 05/03/2008 VITAMIN D LEVEL ONCE IN A LIFETIME-USE SMARTSET# 72330 Completed 02/27/2024, 01/19/2023, 05/27/2022, Additional history exists [...] this encounter Medical Devices Implanted Type Area External Grinder Tender Device Identifier Shelf Expiration Date Model / Serial / Lot Lens Intraoc 22.0 - [id number] - [id number] Implanted:Qty: 1 on 01/15/2020 by Delta Johansen MD at OR [facility] Left: Eye BAUSCH & LOMB 09/13/2024 [id number] / [id number] / Lens Intraoc 22.0 - [id number] - [id number] Implanted:Qty: 1 on 01/22/2020 by Delta Johansen MD at OR [facility] Right: Eye BAUSCH & LOMB 02/12/2024 [id number] / [id number] / [id number] documented as of this encounter Care Teams Neon Pumper Relationship Specialty Start Date End Date Tristan Conde MD [address] [place] [address] PCP - General 01/10/03 documented as of this encounter
--- OUTSIDE RECORDS SUMMARY | 2024-09-03 19:58 | External Medical Summary | Summary of Care ---
Author Name Unknown Organization [facility] Address [address] [place] [address] Phone [phone] Care Team Providers Care Sole Buffer Name Role Phone Tristan Conde MD Primary Care Provider +1- [phone] Reason for Visit * Reason Onset Date Comments Referral 03/08/2024 Encounter Details Date Type Department Care Team (Late st Contact Info) Description 03/08/2024 Telephone Orthopaedics [facility] [address] [place] [address] Services, Scheduling [address] [place] [address] Referral Allergies No known active allergiesdocumented as of [...] nightly 45 g 3 02/23/2024 Active Nystatin 923867 UNIT/GM External Powder (Nystop) Apply topically to [...] mRNA, LNP-s, No Pre serve, 2-Dose Series ([employer] [employer]) 11/10/2021,01/21/2021,12/31/2020 Pneumococcal Conjugate Vacc, 13 Valent (Prevnar) [...] No 11/09/2023 Does the household have a [facility] source of income? (Household - for [...] encounter Miscellaneous Notes * Telephone Encounter - Corina Lepe OSA - 03/08/2024 9:39 AM EDT Robinson, Patient is calling about needing an updated PT referral that Lázaro Gutierrez put in. Pt would like it sent to [facility]. This is the in home place he recommended to pt. Their fax is and phone number is [phone]. Please advise. Thank you, NIKKI Sosa documented in this encounter Plan of Treatment Upcoming Encounters Date Type Department Care Team (Late st Contact Info) Description 06/21/2024 2:30 PM EDT [facility] [place] [address] [place] [address] Anne Alcocer PA-C [address] [place] [address] Barbara Butt, Community Health Automatic Machine Attendant [address] [place] [address] Scheduled Procedures Name Priority Associated [...] Additional history exists CKD PHOS USE SMARTSET 08865 08/25/202408/14, 09/30/2022, 04/03/2020, Additional history exists GFR 08/28/2024 02/27/2024, 10/15, 08/25/2023, Additional history exists Depression Monitoring 09/30/2024 09/30/2023 Albumin/Creatinine Ratio 01/06/2025 024, 11/02/2023, 08/18/2022, Additional history exists CKD HGB USE SMARTSET 28535 02/26/202502/26, 02/27/2024, 11/06/2023, Additional history exists TSH 02/26/2025 02/27/2024, 02/12, 01/19/2023, Additional history exists DTaP,Tdap,and Td Vaccines (3 - Td or Tdap) 05/15/2032 05/15/2022, 04/03/2015, 05/03/2008, Additional history exists Pneumococcal Vaccine: 65+ Years Completed 01/02/2016, 05/03/2008 VITAMIN D LEVEL ONCE IN A LIFETIME-USE SMARTSET# 31640 Completed 02/27/2024, 01/19/2023, 05/27/2022, Additional history exists [...] this encounter Medical Devices Implanted Type Area Smoke Chaser Device Identifier Shelf Expiration Date Model / Serial / Lot Lens Intraoc 22.0 - [id number] - [id number] Implanted:Qty: 1 on 01/15/2020 by Delta Johansen MD at OR [facility] Left: Eye BAUSCH & LOMB 09/13/2024 [id number] / [id number] / Lens Intraoc 22.0 - [id number] - [id number] Implanted:Qty: 1 on 01/22/2020 by Delta Johansen MD at OR [facility] Right: Eye BAUSCH & LOMB 02/12/2024 [id number] / [id number] / [id number] documented as of this encounter Care Teams Sole Buffer Relationship Specialty Start Date End Date Tristan Conde MD [address] [place] [address] PCP - General 01/10/03 documented as of this encounter
--- OUTSIDE RECORDS SUMMARY | 2024-09-03 19:59 | External Medical Summary | Summary of Care ---
Author Name Unknown Organization [facility] Address [address] [place] [address] Phone [phone] Care Team Providers Care Hand Printed Circuit Board Assembler Name Role Phone Tristan Conde MD Primary Care Provider +1- [phone] Reason for Visit * Reason Onset Date Comments Wound Care 01/02/2024 Encounter Details Date Type Department Care Team (Late st Contact Info) Description 01/02/2024 Telephone [facility] [address] [place] [address] Roxane Corbett, [place] [address] [place] [address] Wound Care Allergies No known active allergiesdocumented as of this encounter (statuses as of 04/02/2024) Medications Medication Sig Dispensed Refills Start Date [...] 02/28/2023 Saccharomyces boulardii 250 MG Oral Capsule (Florastor)Indicati [...] 10/28/2023 Active LORazepam 0.5 MG Oral Tablet (Ativan)Indications :Diarrhea, unspecified type,Arthritis One tab 30 min before mri, repeat 15 min prior and at start 1 Tablet 11/09/2023 Active Additional Information Patient not taking.Reported on 12/16/2023 documented as of this encounter (statuses as of 04/02/2024) Active Problems Problem Noted Date Diagnosed Date [...] as of this encounter (statuses as of 04/02/2024) Resolved Problems Problem Noted Date Diagnosed Date [...] as of this encounter (statuses as of 04/02/2024) Immunizations Name Administration Dates Next Due COVID-19 mRNA, LNP-s, No Pre serve, 2-Dose Series ([employer]) 11/10/2021,01/21/2021,12/31/2020 Pneumococcal Conjugate Vacc, 13 Valent (Prevnar) [...] TDAP (age 10 and older)(Boostrix) 05/15/2022 05/15/2032 TDAP (age 11 and older)(Adacel) 04/03/2015 Varicella Zoster Vaccine (Adult) 05/07/2014 documented [...] Telephone Encounter - Lily Parham PA-C - 01/02/2024 1:26 PM EST I prefer the once a week visit with the nurses if possible Lily Parham PA-C 01/02/2024 1:27 PM * Telephone Encounter - Roxane Corbett, RN - 01/02/2024 9:52 AM EST Lily, I spoke with Asuncion today, she mentions that she has open wounds on both her lower legs, says they are draining clear fluid. Asuncion is currently using "pads" & wrapping her legs 2-3 times a day depending on the drainage Asuncion states she does not have enough supplies to do the Unna boot on both legs [facility] plans to see Asuncion tomorrow-for physical therapy ordered by orthopedics-the therapist has some experience with lymphedema tx, she will evaluate her legs tomorrow, I have asked the therapist to call me back with recommendations, order requests. The therapist with [facility] that manages patient's with lymphedema will not be able to see Asuncion for at least 2 weeks Asuncion refuses to be seen at the wound clinic, not sure if you would want Asuncion to come in the clinic once a week as a nurses visit to get the Unna Boot applied & to give her supplies to do at home? Let me know-thanks Roxane Corbett, RN documented in this encounter Plan of Treatment Upcoming Encounters Date Type Department Care Team (Late st Contact Info) Description 04/19/2024 11:00 AM EDT Telemedicine [facility], [place] [address] [place] [address] Anne Alcocer PA-C [address] [place] [address] Lauren Woo, Community Health Flask Cleaner [address] [place] [address] Scheduled Procedures Name Priority Associated Diagnoses Date/Ti [...] 11/10/2021, 01/21/2021, 12/31/2020 CKD PHOS USE SMARTSET 76623 08/25/202408/14, 09/30/2022, 04/03/2020, Additional history exists GFR 08/28/2024 02/27/2024, 10/15, 08/25/2023, Additional history exists Albumin/Creatinine Ratio 01/06/2025 024, 11/02/2023, 08/18/2022, Additional history exists CKD HGB USE SMARTSET 35729 02/26/202502/26, 02/27/2024, 11/06/2023, Additional history exists TSH 02/26/2025 02/27/2024, 02/12, 01/19/2023, Additional history exists DTaP,Tdap,and Td Vaccines (3 - Td or Tdap) 05/15/2032 05/15/2022, 04/03/2015, 05/03/2008, Additional history exists Pneumococcal Vaccine: 65+ Years Completed 01/02/2016, 05/03/2008 Influenza Vaccine (FLU shot) Completed , 08/18/2022, 08/18/2022, Additional history exists VITAMIN D LEVEL ONCE IN A LIFETIME-USE SMARTSET# 92825 Completed 02/27/2024, 01/19/2023, 05/27/2022, Additional history exists [...] this encounter Medical Devices Implanted Type Area Clothing Cutter Device Identifier Shelf Expiration Date Model / Serial / Lot Lens Intraoc 22.0 - [id number] - [id number] Implanted:Qty: 1 on 01/15/2020 by Delta Johansen MD at OR [facility] Left: Eye BAUSCH & LOMB 09/13/2024 [id number] / [id number] / Lens Intraoc 22.0 - [id number] - [id number] Implanted:Qty: 1 on 01/22/2020 by Delta Johansen MD at OR [facility] Right: Eye BAUSCH & LOMB 02/12/2024 [id number] / [id number] / [id number] documented as of this encounter Care Teams Hand Printed Circuit Board Assembler Relationship Specialty Start Date End Date Tristan Conde MD [address] [place] [address] PCP - General 01/10/03 documented as of this encounter
--- OUTSIDE RECORDS SUMMARY | 2024-09-03 19:59 | External Medical Summary | Summary of Care ---
Author Name Unknown Organization [facility] Address [address] [place] [address] Phone [phone] Care Team Providers Care Buildings And Grounds Director Name Role Phone Tristan Conde MD Primary Care Provider [phone]- [phone] Reason for Referral * Evaluate & Treat - Unlimited Visits (Within 10 days (routine)) - Authorized Specialty Diagnoses / Procedures Referred By Contac t Referred To Contact HOME CARE / Home Care Diagnoses Lymphedema Open wounds involving multiple regions of lower extremity without complication Ambulatory dysfunction Anne Alcocer PA-C [address] [place] [address] Referral ID Status Reason Start Date Expiration Date Visits Requested Visits Authorized [id number] Authorized Specialty Services Required 03/21/2024 999 999 Question Answer Referral Priority Within 10 days (routine) Where should this appointment be scheduled? Lili Comments Documentation of Hnpk-vf-[id number] Encounter Addendum Patient Name: Asuncion Garcia I certify that this patient is under my care and that I, or a nurse practitioner or physician's public health assistant working with me, had a base-ax-ptqf encounter that meets the physician uqxk-gw-yssw encounter requirements with this patient on: 03/21/24 The encounter with the patient was in whole, or in part, for the following medical condition, which is the primary reason for home health care (List medical condition): Gait dysfunction I certify that, based on my findings, the following services are medically necessary home health services: Nursing and Physical Therapy To provide the following care/treatments: (All hospitalists not following the patient after discharge should complete this section): patient has nursing on board for wound care which I would like to continue. She has gait dysfunction and difficulty walking. She had a fall last week. Primary Care Physician to follow home care plan of care after discharge: PCP and myself My clinical findings support the need for the above services because: open wounds with drainage to LE's and gait dysfunction resulting in recent fall Further, I certify that my clinical findings support that this patient is homebound (i.e. Absences from home require considerable and taxing effort and are for medical reasons or gnosticism services or infrequently or of short duration when for other reason) because: Physician Signature: Anne Martinez PA-C Date of Signature: 03/21/24 Physician Printed Name: Anne Cano PA-C Reason for Visit * Reason Comments [facility]: Telehealth Encounter Details Date Type Department Care Team (Late st Contact Info) Description 03/21/2024 9:30 AM EDT Telemedicine [facility], [place] [address] [place] [address] Anne Alcocer PA-C [address] [place] [address] Lauren Woo, Community Health Animal Control Officer [address] [place] [address] Lymphedema*; Open wounds involving multiple regions of lower extremity without complication; Ambulatory dysfunction Allergies No known active allergiesdocumented as of this encounter (statuses as of 03/21/2024) Medications Medication Sig Dispensed Refills Start Date End Date Status vitamin b 12 (CYANOCOBALAMIN) 1000 MCG TABS Take 1 Tablet by mouth in the morning. 0 07/15/2017 Active docusate sodium (COLACE) 100 MG Capsule Take 1 Capsule by mouth 2 times a day as needed for Constipation. 0 Active clonazePAM (KLONOPIN) 1 MG TabletIndications:Res tless legs syndrome TAKE 1 TABLET PRIOR TO SLEEP, FOR PLMS And RLS 90 Tab 0 10/24/2018 Active ferrous sulfate (FEOSOL) 325 (65 [...] needed for Pain, Severe. 180 Tablet 0 10/28/2023 Active Amitriptyline HCl 25 MG Oral Tablet (Elavil)Indications:P ersistent insomnia,New daily persistent headache TAKE 1 TABLET EVERY NIGHT 1 HOUR BEFORE BEDTIME 90 Tablet 1 10/28/2023 Active LORazepam 0.5 MG Oral Tablet (Ativan)Indications:D iarrhea, unspecified type,Arthritis One tab 30 min before mri, repeat 15 min prior and at start 1 Tablet 0 11/09/2023 Active Additional Information Patient not taking.Reported on 12/16/2023 Bumetanide 1 MG Oral Tablet (Bumex) Take 1 Tablet by mouth in the morning and 1 Tablet before bedtime. 0 Active Carvedilol 12.5 MG Oral Tablet (Coreg) Take 1 Tablet by mouth in the morning and 1 Tablet before bedtime. with food. 180 Tablet 3 02/23/2024 Active busPIRone HCl 15 MG Oral Tablet (Buspar) Take 1 Tablet by mouth in the morning and 1 Tablet at noon and 1 Tablet before bedtime. 270 Tablet 02/23/2024 Active Gabapentin 400 MG Oral Capsule [...] max of 5 per day. 450 Tablet 02/23/2024 Active Apixaban 5 MG Oral Tablet (Eliquis) Take 1 Tablet by mouth in the morning and 1 Tablet before bedtime. 180 Tablet 02/23/2024 Active Vitamin D (Ergocalciferol) 1.25 MG (59653 UT) Oral Capsule (Drisdol) TAKE 1 CAPSULE ONCE WEEKLY 12 Capsule 02/23/2024 Active Levothyroxine Sodium 125 MCG Oral Tablet (Levoxyl)Indications: Other specified hypothyroidism Take 1 Tablet by mouth in the morning. (at least 30 min prior to breakfast or other meds). 90 Tablet 1 02/23/2024 Active Clotrimazole 1 % Vaginal CreamIndications:Vagi na itching Apply a pea sized dollop to vaginal entrance and labia at bedtime nightly 45 g 02/23/2024 Active Nystatin 795472 UNIT/GM External Powder (Nystop) Apply topically to affected area 3 times a day. Apply to abdominal folds 60 g 02/23/2024 Active Pramipexole Dihydrochloride 0.25 MG Oral Tablet (Mirapex)Indications: Restless legs syndrome TAKE 1 TABLET IN THE AFTERNOON AND 2 TABLETS AT BEDTIME 270 Tablet 3 02/23/2024 Active Diphenoxylate-Atropin e 2.5-0.025 MG Oral Tablet (Lomotil)Indications: Diarrhea, unspecified type Take 1 Tablet by mouth every 6 hours as needed for Diarrhea. 30 Tablet 1 02/23/2024 Active documented as of this encounter (statuses as of 03/21/2024) Active Problems Problem Noted Date Diagnosed Date [...] as of this encounter (statuses as of 03/21/2024) Resolved Problems Problem Noted Date Diagnosed Date [...] as of this encounter (statuses as of 03/21/2024) Immunizations Name Administration Dates Next Due COVID-19 mRNA, LNP-s, No Pre serve, 2-Dose Series ([employer]) 11/10/2021,01/21/2021,12/31/2020 Pneumococcal Conjugate Vacc, 13 Valent (Prevnar) [...] Sign Reading Time Taken Comments Blood Pressure 104/60 03/21/2024 10:05 AM EDT Pulse 43 03/21/2024 10:05 AM EDT Temperature - - Respiratory Rate - - Oxygen Saturation - - Inhaled Oxygen Concentration - - Weight - - Height - - Body Mass Index - - documented in this encounter Progress Notes * Lauren Woo Community Health Animal Control Officer - 03/21/2024 10:01 AM EDT Telemedicine visit: Yes Patient location: HOME. I was not in a hospital or clinic location. After connecting through televideo, patient was verified with two unique identifiers. Patient (or authorized legal senior sales representative) was then informed that this was a Telemedicine visit and being conducted confidentially over secure lines. Methods to assure confidentiality were taken. Patient acknowledged consent and understanding of privacy and security of the Telemedicine visit. The patient agreed to participate. Community Health Animal Control Officer (JOHN) documentation: CHW assisted Anne Clarke PA-C with telehealth visit this date. * Anne Alcocer PA-C - 03/21/2024 9:30 AM EDT [facility] Provider Telemedicine Visit Date: 03/21/2024 Time: 9:44 AM Assessment/Plan: 1. Lymphedema - HOME HEALTH REFERRAL OP 2. Open wounds involving multiple regions of lower extremity without complication Advised to monitor for S/S of infection - HOME HEALTH REFERRAL OP 3. Ambulatory dysfunction - HOME HEALTH REFERRAL OP Follow up plan: Will follow up in one month. Advised to reach out sooner if wounds on the extremities change. nursing on board with her care. Ordered home PT A total of 25 minutes was spent face to face via video-based telemedicine. Subjective Patient location: HOME. I was not in a hospital or clinic location. After connecting through [employer], patient was verified with two unique identifiers. Patient (or authorized legal senior sales representative) was then informed that this was a Telemedicine visit and being conducted confidentially over secure lines. Methods to assure confidentiality were taken. Patient acknowledged consent and understanding of privacy and security of the Telemedicine visit. The patient agreed to participate. Reason for Visit: Follow-Up Current Concerns: Asuncion Garcia is a 79 year old female seen today for a [facility] Telemedicine Provider Visit. Date of last known acute care visit: 02/20/24 with myself Reason for last known acute [...] has difficulty getting transportation to office visits. I saw the patient on 02/20/24 leg wounds were healed. Weight was 235 lbs. She was advised by Nephrology to take Bumex 1 mg BID if weight is between 235-240 lbs. If greater than 240 lbs take Bumex 1 mg TID. She reached out to me on 02/22/24 with UTI symptoms and was found to have a UTI. She was treated with Cefdinir. As per EPIC, reported open wounds to the leg one week ago. Today's concerns are: Patient states she is doing well at home. She fell last week (03/16/24). She was getting up at 3 am and feet got caught in the covers and she fell striking her face off the side of the couch. No LOC. She hit her life alert for lift assist. She has no pain to the eye or trouble seeing. No pain with eye movement or restriction. She is ambulating without pain to the joints. She has trouble walking andis requesting PT. She reports her weight is up by 7 lbs. It was 242 lbs today. She is taking Bumex 1mg TID. She has been drinking a lot of fluids. She states her legs have been weeping. No increased redness to the area, heat or pain. No purulent discharge. No CP/SOB or GAMINO. No cough. Appetite is good. No changes with bowel or urinary habits. ROS: See HPI Objective Physical Exam: BP 104/60 (BP Site: Right Arm, BP Position: Sitting, BP Cuff Size: Large) | Pulse 43 Previous Wts: Wt Readings from Last 5 Encounters: 12/16/23 113.3 kg (249 lb 12.8 oz) 07/27/23 108.8 kg (239 lb 12.8 oz) 05/23/23 112.9 kg (249 lb) 05/23/23 112.9 kg (249 lb) 04/05/23 122.9 kg (271 lb) Previous BPs: BP Readings from Last 5 Encounters: 02/20/24 124/78 12/16/23 116/64 07/27/23 102/82 05/23/23 100/60 04/01/23 108/58 Physical Exam Constitutional: General: She is not in acute distress. HENT: Head: Normocephalic. Comments: Healing ecchymosis noted to the right periorbital region and frontal region. Nose: Nose normal. Mouth/Throat: Pharynx: Oropharynx is clear. Eyes: Extraocular Movements: Extraocular movements intact. Conjunctiva/sclera: Conjunctivae normal. Comments: No hemorrhage noted in the eye, normal eye movements without pain. Cardiovascular: Rate and Rhythm: Normal rate and regular rhythm. Pulmonary: Effort: Pulmonary effort is normal. No respiratory distress. Breath sounds: Normal breath sounds. Musculoskeletal: Comments: LLE: lateral surface 2 open superficial wounds. No purulent drainage, no heat to the skin, + erythema which patient states is baseline. + lymphedema RLE: lateral surface; multiple small open areas of skin;no purulence and baseline erythema. +lymphedema Neurological: General: No focal deficit present. Mental Status: She is alert and oriented to person, place, and time. Mental status is at baseline. Cranial Nerves: No cranial nerve deficit. Medication Review: Current Outpatient Medications Medication Sig [...] Tablet 1 Vitamin D (Ergocalciferol) 1.25 MG (93744 UT) Oral Capsule (Drisdol) TAKE 1 CAPSULE ONCE WEEKLY 12 Capsule 3 Levothyroxine Sodium 125 MCG Oral Tablet (Levoxyl) Take 1 Tablet by mouth in the morning. (at least30 min prior to breakfast or other meds). 90 Tablet 1 Clotrimazole 1 % Vaginal Cream Apply a pea sized dollop to vaginal entrance and labia at bedtime nightly 45 g 3 Nystatin 043462 UNIT/GM External Powder (Nystop) Apply topically to [...] months: Yes - When last fall occurred: 6 days ago Depression Screening: PHQ2 Depression Screening PHQ-2 & JOSE-2 assessment Social Determinants of Health Screening: [facility] Screening Tool Social Determinants of Health Tobacco Use: Low Risk (12/26/2023) Patient History Smoking Tobacco Use: Never Smokeless Tobacco Use: Never Passive Exposure: Not on file Alcohol Use: Not on file Financial Resource Strain: Not [...] Stability: Not on file Anne Cano PA-C 9:44 AM *Communication sent to PCP (via [facility] if [facility]), Population Health Care Team members, relevant Specialty Care Physicians* documented in this encounter Plan of Treatment Upcoming Encounters Date Type Department Care Team (Late st Contact Info) Description 04/19/2024 11:00 AM EDT Telemedicine [facility], [place] [address] [place] [address] Anne Alcocer PA-C [address] [place] [address] Lauren Woo, Community Health Animal Control Officer [address] [place] [address] Scheduled Procedures Name Priority Associated Diagnoses Date/Ti me COLONOSCOPY FLEXIBLE PROXIMA L DIAGNOSTIC Recall Special screening for malignant neoplasms, colon Scheduled Referrals Name Type Priority Associated Diagnoses Orde r Schedule HOME HEALTH REFERRAL OP Referral Within 10 days (routine) Lymphedema Open wounds involving multiple regions of lower extremity without complication Ambulatory dysfunction Ordered: 03/21/2024 Health Maintenance Due Date Last Done Comments Zoster Vaccines (2 of 3) 07/02/2014 05/07/2014 DXA Scan 03/21/2016 03/21/2014, 12/2007, 10/15/2008, Additional history exists *BISPHONATE OR OTHER ACCEPTABLE MEDICATION NEEDED FOR OSTEOPOROSIS (REFER TO SMARTSET #1146) 02/09/2017 COVID-19 Vaccine ( season) 2023 11/10/2021, 01/21/2021, 12/31/2020 CKD PHOS USE SMARTSET 66939 08/25/202408/14, 09/30/2022, 04/03/2020, Additional history exists GFR 08/28/2024 02/27/2024, 10/15, 08/25/2023, Additional history exists Albumin/Creatinine Ratio 01/06/2025 024, 11/02/2023, 08/18/2022, Additional history exists CKD HGB USE SMARTSET 28422 02/26/202502/26, 02/27/2024, 11/06/2023, Additional history exists TSH 02/26/2025 02/27/2024, 02/12, 01/19/2023, Additional history exists DTaP,Tdap,and Td Vaccines (3 - Td or Tdap) 05/15/2032 05/15/2022, 04/03/2015, 05/03/2008, Additional history exists Pneumococcal Vaccine: 65+ Years Completed 01/02/2016, 05/03/2008 Influenza Vaccine (FLU shot) Completed , 08/18/2022, 08/18/2022, Additional history exists VITAMIN D LEVEL ONCE IN A LIFETIME-USE SMARTSET# [id number] Completed 02/27/2024, 01/19/2023, 05/27/2022, Additional history exists [...] this encounter Medical Devices Implanted Type Area It Technical Architect Device Identifier Shelf Expiration Date Model / Serial / Lot Lens Intraoc 22.0 - [id number] - [id number] Implanted:Qty: 1 on 01/15/2020 by Delta Johansen MD at OR [facility] Left: Eye [employer]OM[employer] 09/13/2024 [id number] / [id number] / Lens Intraoc 22.0 - [id number] - [id number] Implanted:Qty: 1 on 01/22/2020 by Delta Johansen MD at OR [facility] Right: Eye BAUSCH [employer] LOMB 02/12/2024 [id number] / [id number] / [id number] documented as of this encounter Visit Diagnoses Diagnosis Lymphedema- Primary Other lymphedema Open wounds involving multiple regions of lower extremity without complication Ambulatory dysfunction documented in this encounter Care Teams Buildings And Grounds Director Relationship Specialty Start Date End Date Tristan Conde MD [address] [place] [address] PCP - General 01/10/03 documented as of this encounter"
--- OUTSIDE RECORDS SUMMARY | 2024-09-03 19:59 | External Medical Summary | Summary of Care ---
Author Name Unknown Organization [facility] Address [address] [place] [address] Phone [phone] Care Team Providers Care Rectifying Attendant Name Role Phone Tristan Conde MD Primary Care Provider +1- [phone] Reason for Visit * Reason Onset Date Comments Appointment 04/13/2024 Encounter Details Date Type Department Care Team (Late st Contact Info) Description 04/13/2024 Telephone [facility], [place] [address] [place], [place] [id number] Services, Scheduling [address] [place] [address] Appointment (//) Allergies No known active allergiesdocumented as of this encounter (statuses as of 04/13/2024) Medications Medication Sig Dispensed Refills Start Date [...] 02/23/2024 Active Vitamin D (Ergocalciferol) 1.25 MG (11801 UT) Oral Capsule (Drisdol) TAKE 1 CAPSULE [...] nightly 45 g 3 02/23/2024 Active Nystatin 993059 UNIT/GM External Powder (Nystop) Apply topically to [...] as of this encounter (statuses as of 04/13/2024) Active Problems Problem Noted Date Diagnosed Date [...] as of this encounter (statuses as of 04/13/2024) Resolved Problems Problem Noted Date Diagnosed Date [...] as of this encounter (statuses as of 04/13/2024) Immunizations Name Administration Dates Next Due COVID-19 [...] Telephone Encounter - Jason Holman OSA - 04/13/2024 9:35 AM EDT Call to pt and confirmed ret kaco appt for 04/19 at 11am, pt agreeable documented in this encounter Plan of Treatment Upcoming Encounters Date Type Department Care Team (Late st Contact Info) Description 04/19/2024 11:00 AM EDT [facility]icine [facility], [place] [address] [place] [address] Anne Alcocer PA-C [address] [place] [address] Barbara Butt, Community Health Coffee Grinder [address] [place] [address] Scheduled Procedures Name Priority Associated Diagnoses Date/Ti [...] 11/10/2021, 01/21/2021, 12/31/2020 CKD PHOS USE SMARTSET 40963 08/25/202408/14, 09/30/2022, 04/03/2020, Additional history exists GFR 08/28/2024 02/27/2024, 10/15, 08/25/2023, Additional history exists Albumin/Creatinine Ratio 01/06/2025 024, 11/02/2023, 08/18/2022, Additional history exists CKD HGB USE SMARTSET 38328 02/26/202502/26, 02/27/2024, 11/06/2023, Additional history exists TSH 02/26/2025 02/27/2024, 02/12, 01/19/2023, Additional history exists DTaP,Tdap,and Td Vaccines (3 - Td or Tdap) 05/15/2032 05/15/2022, 04/03/2015, 05/03/2008, Additional history exists Pneumococcal Vaccine: 65+ Years Completed 01/02/2016, 05/03/2008 Influenza Vaccine (FLU shot) Completed , 08/18/2022, 08/18/2022, Additional history exists VITAMIN D LEVEL ONCE IN A LIFETIME-USE SMARTSET# [id number] Completed 02/27/2024, 01/19/2023, 05/27/2022, Additional history exists [...] this encounter Medical Devices Implanted Type Area Energy Administrator Device Identifier Shelf Expiration Date Model / Serial / Lot Lens Intraoc 22.0 - [id number] - [id number] Implanted:Qty: 1 on 01/15/2020 by Delta Johansen MD at OR [facility] Left: Eye BA[employer]CH [employer] LOMB 09/13/2024 [id number] / [id number] / Lens Intraoc 22.0 - [id number] - [id number] Implanted:Qty: 1 on 01/22/2020 by Delta Johansen MD at OR [facility] Right: Eye BAUSCH [employer] LOMB 02/12/2024 [id number] / [id number] / [id number] documented as of this encounter Care Teams Rectifying Attendant Relationship Specialty Start Date End Date Tristan Conde MD [address] [place] [address] PCP - General 01/10/03 documented as of this encounter
--- OUTSIDE RECORDS SUMMARY | 2024-09-03 19:59 | External Medical Summary | Summary of Care ---
Author Name Unknown Organization [facility] Address [address] [place] [address] Phone [phone] Care Team Providers Care Dancing Master Name Role Phone Tristan Conde MD Primary Care Provider +1- [phone] Reason for Referral * Evaluate & Treat - Unlimited Visits (Within 10 days (routine)) - Authorized Specialty Diagnoses / Procedures Referred By Sophy ruelas Referred To Contact Orthopaedic Surgery / Orthopedics Diagnoses Edema of knee Lily Parham PA-C [address] [place] [address] Referral ID Status Reason Start Date Expiration Date Visits Requested Visits Authorized [id number] Authorized Second Opinion 12/20/2023 999 999 Question Answer Referral Priority Within 10 days (routine) Where should this appointment be scheduled? [facility] What body part is the patient being seen for? Thigh/Knee What condition is the patient being seen for? Arthritis including related infection Encounter Details Date Type Department Care Team (Late st Contact Info) Description 12/20/[address] [facility] [address] [place] [id number] Lily Parham PA-C [address], [place] [phone] Allergies No known active allergiesdocumented as of this encounter (statuses as of 03/20/2024) Medications Medication Sig Dispensed Refills Start Date End Date Status vitamin b 12 (CYANOCOBALAMIN) 1000 MCG TABS Take 1 Tablet by mouth in the morning. 0 07/15/2017 Active docusate sodium (COLACE) 100 MG Capsule Take 1 Capsule by mouth 2 times a day as needed for Constipation. 0 Active clonazePAM (KLONOPIN) 1 MG TabletIndications:R estless [...] as of this encounter (statuses as of 03/20/2024) Active Problems Problem Noted Date Diagnosed Date [...] as of this encounter (statuses as of 03/20/2024) Resolved Problems Problem Noted Date Diagnosed Date [...] as of this encounter (statuses as of 03/20/2024) Immunizations Name Administration Dates Next Due COVID-19 [...] Notes * Telephone Encounter - Priscila Chu CCMA - 12/20/2023 11:39 AM EST The patient is aware, and verbalizes an understanding. Pt states that she will see our ortho department in [place]. She is aware that the order is in. Called is transfer out front. * Telephone Encounter - Lily Parham PA-C - 12/20/2023 8:18 AM EST Please let patient know - I spoke with radiology Dr Dhillon He wants her to have an mri of her knee and see our ortho department to further visualize the fluidin her knee If she had one through ortho elsewhere, that would work too Then either he or they can drain her knee if there is fluid in a pocket Edema of knee (Primary) - ORTHOPAEDICS REFERRAL OP Lily Parham PA-C 12/20/2023 8:19 AM documented in this encounter Plan of Treatment Upcoming Encounters Date Type Department Care Team (Late st Contact Info) Description 03/21/2024 9:30 AM EDT Telemedicine [facility], [place] [address] [address] Anne Alcocer PA-C [address] [address] Lauren Woo, Community [facility] Bulb Grower [address] [place] [address] Scheduled Procedures Name Priority Associated Diagnoses Date/Ti me COLONOSCOPY FLEXIBLE PROXIMA L DIAGNOSTIC Recall Special screening for malignant neoplasms, colon Scheduled Referrals Name Type Priority Associated Diagnoses Order Schedule ORTHOPAEDICS REFERRAL OP Referral Within 10 days (routine) Edema of knee Ordered: 12/20/2023 Health Maintenance Due Date Last Done Comments Zoster Vaccines (2 of 3) 07/02/2014 05/07/2014 DXA Scan 03/21/2016 03/21/2014, 12/2007, 10/15/2008, Additional history exists *BISPHONATE OR OTHER ACCEPTABLE MEDICATION NEEDED FOR OSTEOPOROSIS (REFER TO SMARTSET #1146) 02/09/2017 COVID-19 Vaccine ( season) 2023 11/10/2021, 01/21/2021, 12/31/2020 CKD PHOS USE SMARTSET 25319 08/25/202408/14, 09/30/2022, 04/03/2020, Additional history exists GFR 08/28/2024 02/27/2024, 10/15, 08/25/2023, Additional history exists Albumin/Creatinine Ratio 01/06/2025 024, 11/02/2023, 08/18/2022, Additional history exists CKD HGB USE SMARTSET 60846 02/26/202502/26, 02/27/2024, 11/06/2023, Additional history exists TSH 02/26/2025 02/27/2024, 02/12, 01/19/2023, Additional history exists DTaP,Tdap,and Td Vaccines (3 - Td or Tdap) 05/15/2032 05/15/2022, 04/03/2015, 05/03/2008, Additional history exists Pneumococcal Vaccine: 65+ Years Completed 01/02/2016, 05/03/2008 Influenza Vaccine (FLU shot) Completed , 08/18/2022, 08/18/2022, Additional history exists VITAMIN D LEVEL ONCE IN A LIFETIME-USE SMARTSET# [id number] Completed 02/27/2024, 01/19/2023, 05/27/2022, Additional history exists [...] this encounter Medical Devices Implanted Type Area Senior Quality Assurance Analyst Device Identifier Shelf Expiration Date Model / Serial / Lot Lens Intraoc 22.0 - [id number] - [id number] Implanted:Qty: 1 on 01/15/2020 by Delta Johansen MD at OR [facility] Left: Eye BAUSCH [employer] LOMB 09/13/2024 [id number] / [id number] / Lens Intraoc 22.0 - [id number] - [id number] Implanted:Qty: 1 on 01/22/2020 by Delta Johansen MD at OR [facility] Right: Eye BAUSCH & LOMB 02/12/2024 [id number] / [id number] / [id number] documented as of this encounter Visit Diagnoses Diagnosis Edema of knee- Primary documented in this encounter Care Teams Dancing Master Relationship Specialty Start Date End Date Tirstan Codne MD [address] [place] [address] PCP - General 01/10/03 documented as of this encounter
--- OUTSIDE RECORDS SUMMARY | 2024-09-03 19:59 | External Medical Summary | Summary of Care ---
Author Name Unknown Organization [facility] Address [address] [place] [address] Phone [phone] Care Team Providers Care Manager Multimedia Name Role Phone Tristan Conde MD Primary Care Provider +1- [phone] Encounter Details Date Type Department Care Team (Late st Contact Info) Description 04/19/2024 Telephone [facility], [place] [address], [place] [phone] Services, Scheduling [address] [place] [address] Allergies No known active allergiesdocumented as of this encounter (statuses as of 04/19/2024) Medications Medication Sig Dispensed Refills Start Date [...] and 1 Capsule before bedtime. 270 Capsule 02/23/2024 Active Colestipol HCl 1 GM Oral [...] 02/23/2024 Active Vitamin D (Ergocalciferol) 1.25 MG (12159 UT) Oral Capsule (Drisdol) TAKE 1 CAPSULE [...] nightly 45 g 3 02/23/2024 Active Nystatin 439706 UNIT/GM External Powder (Nystop) Apply topically to [...] as of this encounter (statuses as of 04/19/2024) Active Problems Problem Noted Date Diagnosed Date [...] as of this encounter (statuses as of 04/19/2024) Resolved Problems Problem Noted Date Diagnosed Date [...] as of this encounter (statuses as of 04/19/2024) Immunizations Name Administration Dates Next Due COVID-19 mRNA, LNP-s, No Pre serve, 2-Dose Series ([employer] 11/10/2021,01/21/2021,12/31/2020 Pneumococcal Conjugate Vacc, 13 Valent (Prevnar) [...] Telephone Encounter - Jason Holman OSA - 04/19/2024 12:47 PM EDT Per request, 02/[address] Epstein at [phone] documented in this encounter Plan of Treatment Upcoming Encounters Date Type Department Care Team (Late st Contact Info) Description 06/01/2024 11:00 AM EDT [facility] [place] [address] [place] [address] Anne Alcocer PA-C [address] [place] [address] Barbara Butt, Community [facility] Button Inspector [address] [place] [address] Scheduled Procedures Name Priority Associated [...] 11/10/2021, 01/21/2021, 12/31/2020 CKD PHOS USE SMARTSET 29587 08/25/202408/14, 09/30/2022, 04/03/2020, Additional history exists GFR 08/28/2024 02/27/2024, 10/15, 08/25/2023, Additional history exists Albumin/Creatinine Ratio 01/06/2025 024, 11/02/2023, 08/18/2022, Additional history exists CKD HGB USE SMARTSET 35783 02/26/202502/26, 02/27/2024, 11/06/2023, Additional history exists TSH 02/26/2025 02/27/2024, 02/12, 01/19/2023, Additional history exists DTaP,Tdap,and Td Vaccines (3 - Td or Tdap) 05/15/2032 05/15/2022, 04/03/2015, 05/03/2008, Additional history exists Pneumococcal Vaccine: 65+ Years Completed 01/02/2016, 05/03/2008 Influenza Vaccine (FLU shot) Completed , 08/18/2022, 08/18/2022, Additional history exists VITAMIN D LEVEL ONCE IN A LIFETIME-USE SMARTSET# 41601 Completed 02/27/2024, 01/19/2023, 05/27/2022, Additional history exists [...] this encounter Medical Devices Implanted Type Area Research Associate Quality Control Qc Device Identifier Shelf Expiration Date Model / Serial / Lot Lens Intraoc 22.0 - [id number] - [id number] Implanted:Qty: 1 on 01/15/2020 by Delta Johansen MD at OR [facility] Left: Eye BAUSCH [employer] LOMB 09/13/2024 [id number] / [id number] / Lens Intraoc 22.0 - [id number] - [id number] Implanted:Qty: 1 on 01/22/2020 by Delta Johansen MD at OR [facility] Right: Eye BAUSCH & LOMB 02/12/2024 [id number] / [id number] / [id number] documented as of this encounter Care Teams Manager Multimedia Relationship Specialty Start Date End Date Tristan Conde MD [address] [place] [address] PCP - General 01/10/03 documented as of this encounter
--- OUTSIDE RECORDS SUMMARY | 2024-09-03 19:59 | External Medical Summary | Summary of Care ---
Author Name Unknown Organization [facility] Address [address] [place] [address] Phone [phone] Care Team Providers Care [employer] Travel Counselor Name Role Phone Tristan Conde MD Primary Care Provider +1- [phone] Reason for Visit * Reason Onset Date Comments Information 04/11/2024 Encounter Details Date Type Department Care Team ([facility] st Contact Info) Description 04/11/2024 Telephone [facility], [place] [address] [place] [phone] Services, Scheduling [address] [place] [address] Information Allergies No known active allergiesdocumented as of this encounter (statuses as of 04/11/2024) Medications Medication Sig Dispensed Refills Start Date [...] 02/23/2024 Active Vitamin D (Ergocalciferol) 1.25 MG (30620 UT) Oral Capsule (Drisdol) TAKE 1 CAPSULE [...] nightly 45 g 3 02/23/2024 Active Nystatin 113037 UNIT/GM External Powder (Nystop) Apply topically to [...] as of this encounter (statuses as of 04/11/2024) Active Problems Problem Noted Date Diagnosed Date [...] as of this encounter (statuses as of 04/11/2024) Resolved Problems Problem Noted Date Diagnosed Date [...] as of this encounter (statuses as of 04/11/2024) Immunizations Name Administration Dates Next Due COVID-19 [...] encounter Miscellaneous Notes * Telephone Encounter - Afshan Crawford OSA - 04/11/2024 8:21 AM EDT Template request to change chw documented in this encounter Plan of Treatment Upcoming Encounters Date Type Department Care Team (Late st Contact Info) Description 04/19/2024 11:00 AM EDT Telemedicine [facility], [place] [address] [place] [address] Anne Alcocer PA-C [address] [place] [address] Barbara Butt, Community [facility] Regional Marketing Manager [address] [place] [address] Scheduled Procedures Name Priority Associated [...] 11/10/2021, 01/21/2021, 12/31/2020 CKD PHOS USE SMARTSET 06488 08/25/202408/14, 09/30/2022, 04/03/2020, Additional history exists GFR 08/28/2024 02/27/2024, 10/15, 08/25/2023, Additional history exists Albumin/Creatinine Ratio 01/06/2025 024, 11/02/2023, 08/18/2022, Additional history exists CKD HGB USE SMARTSET 37850 02/26/202502/26, 02/27/2024, 11/06/2023, Additional history exists TSH 02/26/2025 02/27/2024, 02/12, 01/19/2023, Additional history exists DTaP,Tdap,and Td Vaccines (3 - Td or Tdap) 05/15/2032 05/15/2022, 04/03/2015, 05/03/2008, Additional history exists Pneumococcal Vaccine: 65+ Years Completed 01/02/2016, 05/03/2008 Influenza Vaccine (FLU shot) Completed , 08/18/2022, 08/18/2022, Additional history exists VITAMIN D LEVEL ONCE IN A LIFETIME-USE SMARTSET# 79529 Completed 02/27/2024, 01/19/2023, 05/27/2022, Additional history exists [...] this encounter Medical Devices Implanted Type Area Forest Ranger Technician Device Identifier Shelf Expiration Date Model / Serial / Lot Lens Intraoc 22.0 - [id number] - [id number] Implanted:Qty: 1 on 01/15/2020 by Delta Johansen MD at OR [facility] Left: Eye BAUSCH & LOMB 09/13/2024 [id number] / [id number] / Lens Intraoc 22.0 - [id number] - [id number] Implanted:Qty: 1 on 01/22/2020 by Delta Johansen MD at OR [facility] Right: Eye BAUSCH & LOMB 02/12/2024 [id number] / [id number] / [id number] documented as of this encounter Care Teams [employer] Travel Counselor Relationship Specialty Start Date End Date Tristan Conde MD [address] [place] [address] PCP - General 01/10/03 documented as of this encounter
[2024-09-04] MEDS: ADVANCED PROBIOTIC 625 MG CAPSULE PO SCH (07:33)
[2024-09-04 07:54] LABS: Eosinophils # (auto) 0.07 K/uL (0.00-0.50); Eosinophils % (auto) 1.8 %; Hematocrit (blood only) 29.7 % (37.0-47.0); Hemoglobin 9.8 g/dl (12.0-16.0); Immature Granulocytes # (auto) 0.01 K/uL (0.01-0.20); Immature Granulocytes % (auto) 0.3 %; Lymphocytes # (auto) 0.59 K/uL (1.20-3.40); Lymphocytes % (auto) 15.4 %; Mean Corpuscular Hemoglobin 31.1 pg (25.0-34.0); Mean Corpuscular Volume 94.3 fL (80.0-100.0); Mean Platelet Volume 11.9 fL (9.4-12.4); Monocytes # (auto) 0.59 K/uL (0.11-0.59); Monocytes % (auto) 15.4 %; Neutrophils # (auto) 2.56 K/uL (1.40-6.50); Neutrophils % (auto) 67.1 %; Platelet Count 110 K/uL (130-400); RDW Coefficient of Variation 13.7 % (11.5-14.5); RDW Standard Deviation 47.4 fL (36.4-46.3); Red Blood Count 3.15 M/uL (4.20-5.40); White Blood Count 3.82 K/ul (4.8-10.8)
[2024-09-04 08:05] LABS: Albumin Globulin Ratio 1.3 (0.9-2); Albumin Level 3.3 gm/dl (3.4-5.0); BUN Creatinine Ratio 21.2 (10-20); Bilirubin,Total 0.3 mg/dl (0.2-1.0); Calcium 8.9 mg/dl (8.6-10.3); Creatinine Clr Calc Pharmacy 47.1 ml/min; Globulin 2.6 gm/dl (2.5-4.0); Magnesium 1.7 mg/dl (1.7-2.4); Phosphorus 2.8 mg/dl (2.5-4.9); Potassium 4.1 mmol/L (3.5-5.1); Total Protein 5.9 gm/dl (6.0-8.3)
[2024-09-04 08:23] LABS: Ferritin 327.8 ng/ml (8-388)
[2024-09-04 08:30] LABS: Folate (Folic Acid),Ser orPlas 18.16 ng/ml (>5.38)
[2024-09-04] MEDS: IRON SUCROSE 200 MG in SODIUM CHLORIDE 0.9% 100 ML IV ONE (09:44)
--- NOTE | 2024-09-04 11:01 | Hospitalist Progress Note ---
Date of Service September 04, 2024 Assessment & Plan (1) Complicated UTI (urinary tract infection): (2) E coli bacteremia: (3) Chest discomfort: (4) Hematuria: Plan Pt is an 79yoF with PMHx significant for hypothyroidism, NIKKI, HFpEF, HTN, PE on Eliquis, irritable bowel syndrome, rectocele, urge incontinence, cystocele, prolapse of vaginal vault after hysterectomy, CKD stage IIIa, restless leg syndrome, iron deficiency anemia [baseline hemoglobin 10-11] who presented to the ED with concern for chest discomfort and hematuria. Bacteremia, gram negative Complicated UTI UA suggestive of infection Urine Cx grew E coli Blood Cx grew E coli in 2/2 bottles Continue IV rocephin Follow Cx and adjust abx as needed, consider treatment for total 14 days Chest discomfort, rule out ACS Patient presents with chest discomfort associated with nausea relieved with oxygen use. Trop trend from 15.3-->17.5--->44.6--->91.9 EKG without signs of ischemia Echo with EF 55 to 60%, right ventricular mild dilation, right ventricle motion normal and no significant valvular pathology Continue with telemetry monitoring cardiology consulted, appreciate recs, pt follows with [facility]. Recommended/stated the following: "Trend HS TropI until peak No need for additional ischemic cardiac testing at this time Resume Eliquis when safe to do from a hematuria standpoint Continue home maintenance Bumex 2 mg twice daily BP stable on current reduce carvedilol Continue long-term compressive wraps If recurrent chest pain could consider trial of long-acting nitrate." continue to hold Eliquis at this time per recs of Urology, can resume in a day or two continue to monitor on telemetry Hematuria Patient presenting with blood in the urine CT abdomen pelvis unremarkable Urology consulted, appreciate recs -can resume Eliquis in a day or two -outpt followup for hematuria workup Continue to monitor H&H Continue to monitor for signs of improvement Currently resolved Chronic Anemia Iron Deficiency Anemia hemoglobin chronically low patient with history of iron deficiency anemia A.m. anemia panel noting persistent iron deficiency -s/p IV Venofer 200mg x1 on 09/04/24 -oral ferrous sulfate tab ordered to begin on 09/05 continue to monitor Thrombocytopenia platelets acutely low Likely in setting of acute severe illness Consider peripheral smear if no improvement Continue to monitor with a.m. labs Improving Acute Kidney Injury creatinine slightly elevated at 1.2 Home Bumex was held overnight Will resume per recs of cardiology Continue to monitor kidney function with a.m. labs Currently wnl BLE chronic wounds: Per patient reports, her BLE wounds have been closed but she is still being actively managed by wound care as an outpatient, she has extensive wrapping over BLE along with Unaboot's. Wound care consult for ongoing management. -Unna boots removed, not on formulary here -However compression applied Other chronic medical conditions: HTN, HFpEF, PE, irritable bowel syndrome---continue with/resume home meds as and when able. Diet: HH DVT prophylaxis: No Chemo Px for now, re: hematuria. Conditional code: no intubation and ventilation, ok w/ other components of ACLS. Dispo: PT/OT for recs Admission and Anticipated Discharge Date Admission Date: September 02, 2024 Subjective Shashi was seen sitting in the chair at bedside. Stated that she was feeling tired States that she again needs to know days in advance to give her son noticed before being discharged No acute events overnight Review of Systems Review of Systems: All systems reviewed & are unremarkable except as noted in Subjective Physical Exam Physical Exam: General: Alert, oriented. No acute distress Psych: Appropriate mood and affect Neuro: difficulty with movements HEENT: NC/AT CV: RRR Resp: Breath sounds clear bilaterally, no increased effort of breathing. Abdomen: Soft, nontender Extremities: edema in lower extremities bilaterally and lower extremities wrapped. Results & Data Results & Data Vital Signs (Past 12 Hours) Vital Signs Temp Pulse Pulse Resp BP Pulse Ox O2 Del Method 09/04/24 09:37 Room Air 09/04/24 09:37 70 09/04/24 07:30 37.1 C 67 18 114/66 93 Room Air 09/04/24 03:33 37.0 C 77 20 116/67 95 Room Air 09/03/24 23:15 36.4 C L 77 20 148/71 H 95 Room Air Diagnostic Findings Chest X-Ray 09/02/24 08:06 TWO VIEW CHEST CLINICAL HISTORY: Atypical chest pain. FINDINGS: PA and lateral chest radiographs are obtained. No prior studies are available for comparison at the time of dictation. The heart is enlarged noting atherosclerotic calcification of the thoracic aorta. The pulmonary vasculature is noncongested. There is mild bibasilar atelectasis. No airspace consolidation or pleural effusion is identified. An indeterminant density is seen anterior to the spine on the lateral projection. There is no pneumothorax. The skeletal structures are osteopenic. Bilateral shoulder arthroplasties are in place. There are compression deformities in the thoracolumbar spine hyperkyphosis. Fusion hardware is seen in the upper lumbar region. IMPRESSION: 1. Cardiomegaly with no acute cardiopulmonary abnormality identified. 2. There is an indeterminate density anterior to the spine seen only on the lateral projection. This may represent overlap of normal structures. Consider a chest CT for further assessment. ACT 112: Negative or not required by law. Electronically signed by: Mir Lorenzo M.D. 09/02/2024 9:08 AM Chest CTA 09/02/24 10:12 CT angio chest PE protocol CLINICAL HISTORY: PE TECHNIQUE: Multidetector row helical CT of the chest was performed with angiographic protocol. Coronal and sagittal reformations were obtained. Coronal and sagittal MIPS were obtained from the axial data set and were submitted for review. Automated dose lowering techniques and/or adjustment according to patient size were utilized for this exam. CT DOSE: 890.86 mGy.cm Comparison: None available at the time of this dictation. FINDINGS: Lungs and pleura: Atelectasis versus scarring is seen in the dependent portions of the lungs. Heart and pericardium: Cardiomegaly is seen with biatrial enlargement. Vessels: No evidence of pulmonary embolism. Mediastinum and michael: Subcentimeter lymph nodes are seen. Chest wall and lower neck: Unremarkable. Abdomen: Patient is status post cholecystectomy. There is a small hiatal hernia. Bones: Degenerative changes in the thoracic spine. Bilateral shoulder arthroplasties are seen. IMPRESSION: No acute abnormality and in particular no evidence of pulmonary embolus. ACT 112: Negative or not required by law. Electronically signed by: Andres Lim M.D. 09/02/2024 11:55 AM Abdomen/Pelvis CT 09/02/24 12:42 CT abd pelvis wo con CLINICAL HISTORY: Hematuria, ro renal stones TECHNIQUE: Helical axial images of the abdomen and pelvis were obtained. Automated dose lowering techniques and/or adjustment according to patient size were utilized for this exam. This exam was performed without intravenous contrast. CT DOSE: 1451.1 mGy.cm COMPARISON: None available at the time of this dictation. FINDINGS: Lower chest: For findings above the diaphragm, please see CT chest performed same day. Liver: Unremarkable. No focal lesions are seen. Gallbladder and biliary tree: Patient is status post cholecystectomy. Physiologic prominence of the biliary ducts is noted. Pancreas: Fatty replacement of the pancreas is seen. Spleen: Splenule is incidentally noted. Adrenals: Unremarkable. Kidneys and ureters: Contrast is seen in the bilateral collecting systems. No evidence of hydronephrosis. Bladder: Unremarkable. Reproductive organs: Unremarkable. Bowel: Diverticulosis is seen without evidence of diverticulitis. There is a small hiatal hernia. Lymph nodes Retroperitoneal: Unremarkable. Pelvic: Unremarkable. Mesenteric: Unremarkable. Peritoneum: Normal. Vessels: Atherosclerotic calcifications are seen. Abdominal wall: A fat-containing umbilical hernia is seen. Bones: Posterior fixation hardware is seen. Degenerative changes are seen spine. IMPRESSION: 1. No evidence of hydronephrosis. Evaluation for stones is limited by expiratory phase contrast in the ureters. 2. Diverticulosis without diverticulitis. 3. Additional findings as above. ACT 112: Negative or not required by law. Electronically signed by: Andres Lim M.D. 09/02/2024 2:45 PM Chest X-Ray 09/02/24 23:30 XR chest 1V portable CLINICAL HISTORY: low o2 COMPARISON STUDY: Chest radiograph and chest CT performed earlier today. FINDINGS: Bilateral shoulder arthroplasties are incidentally noted. Lung volumes are diminished. This represents a hypoventilatory study. There is cardiomegaly. No pneumothorax or pleural effusion is present. Linear bibasilar opacities favor atelectasis. There is prominence of the pulmonary vasculature. IMPRESSION: 1. Hypoventilatory study. 2. Cardiomegaly. Pulmonary vascular congestion, possibly technical 3. Linear bibasilar densities suggestive of atelectasis. ACT 112: Negative or not required by law. Electronically signed by: Jim Snyder M.D. 09/03/2024 7:16 AM
--- NOTE | 2024-09-04 12:02 | Urology Progress Note ---
Date of Service September 04, 2024 Assessment & Plan (1) Hematuria: (2) Urinary tract infection: Plan: Follow-up of hematuria, UTI/bacteremia Afebrile overnight and this morning, hemodynamically stable Labs reviewedcreatinine 1.04, no leukocytosis, hemoglobin 9.8 Blood culture prelim E. coli Urine culture with E. coli, pansensitive Continue broad-spectrum antibiotics and narrow per sensitivity data Hematuria has resolved per patient and RN Recommend continue to monitor bladder emptying As long as she is emptying her bladder, can avoid Beasley catheter placement Continue supportive care, antibiotics and medical management per hospital medicine service Will arrange outpatient follow-up with our service to discuss hematuria workup will sign off, please contact our service with any additional questions or concerns Admission and Anticipated Discharge Date Admission Date: September 02, 2024 Subjective Patient seen and examined at bedside this morning. She is awake and sitting up in bedside chair. Reports feeling better than yesterday, but continues to feel weak and tired. Hematuria has resolved per nursing. She is voiding, incontinent. No fever or chills. No nausea or vomiting. Review of Systems Constitutional: as per Subjective / HPI Genitourinary: as per Subjective / HPI Physical Exam Constitutional: no acute distress Respiratory: normal respiratory effort; no respiratory distress and no labored breathing Gastrointestinal (Abdomen): Inspection/Auscultation: abdomen normal to inspection Musculoskeletal: Head/Neck/Chest: normocephalic Neurologic: moves all extremities and awake Psychiatric: Orientation: alert and oriented x 3 Results & Data Vital Signs (Past 12 Hours) Vital Signs Temp Pulse Pulse Resp BP Pulse Ox O2 Del Method 09/04/24 09:37 Room Air 09/04/24 09:37 70 09/04/24 07:30 37.1 C 67 18 114/66 93 Room Air 09/04/24 03:33 37.0 C 77 20 116/67 95 Room Air PG Care Time/CCT Total # of Minutes Spent Total Time Spent with Patient: Total time spent is greater than 50% in coordination of care (as documented) at patient's floor/unit and/or counseling patient: Coding Level of Care Code 34813 SUB INP/OBS CARE 125MIN Diagnoses Hematuria R31.9 Urinary tract infection N30.01 Hematuria presence: with hematuria Urinary tract infection type: acute cystitis (2) Urinary tract infection Hematuria presence: with hematuria Urinary tract infection type: acute cystitis Qualified Code(s): N30.01 - Acute cystitis with hematuria
--- NOTE | 2024-09-04 18:03 | Ultrasound Report ---
US arterial duplex LE BI HISTORY: 79 years-old Female confirm flow, r/o pvd atherosclerosis with peripheral arterial disease COMPARISON: None TECHNIQUE: Multiple real-time images of the lower arterial structures were obtained assessing graysca le appearance, color and spectral flow FINDINGS: Atherosclerosis. There is predominantly triphasic waveforms noted above the level of the knees bilate rally. Mostly biphasic and triphasic waveforms noted within the lower legs bilaterally. No arterial o cclusion or significantly elevated peak systolic velocities to suggest high-grade stenosis. IMPRESSION: Atherosclerosis without arterial occlusion or high-grade stenosis. ACT 112: Negative or not required by law. The above report was generated using voice recognition software. It may contain grammatical, syntax o r spelling errors. Electronically signed by: Emery Tillman M.D. 09/04/2024 6:00 PM
[2024-09-05 05:53] LABS: Eosinophils # (auto) 0.09 K/uL (0.00-0.50); Eosinophils % (auto) 2.4 %; Hematocrit (blood only) 32.8 % (37.0-47.0); Hemoglobin 10.6 g/dl (12.0-16.0); Immature Granulocytes # (auto) 0.01 K/uL (0.01-0.20); Immature Granulocytes % (auto) 0.3 %; Lymphocytes # (auto) 0.81 K/uL (1.20-3.40); Mean Corpuscular Hemoglobin 30.8 pg (25.0-34.0); Mean Corpuscular Hgb Conc 32.3 g/dL (32.0-36.0); Mean Corpuscular Volume 95.3 fL (80.0-100.0); Mean Platelet Volume 11.6 fL (9.4-12.4); Monocytes # (auto) 0.59 K/uL (0.11-0.59); Neutrophils # (auto) 2.18 K/uL (1.40-6.50); Neutrophils % (auto) 59.3 %; Platelet Count 124 K/uL (130-400); RDW Coefficient of Variation 13.5 % (11.5-14.5); RDW Standard Deviation 47.8 fL (36.4-46.3); Red Blood Count 3.44 M/uL (4.20-5.40); White Blood Count 3.68 K/ul (4.8-10.8)
[2024-09-05 06:05] LABS: Albumin Globulin Ratio 1.3 (0.9-2); Albumin Level 3.5 gm/dl (3.4-5.0); BUN Creatinine Ratio 21.8 (10-20); Bilirubin,Total 0.3 mg/dl (0.2-1.0); Calcium 9.1 mg/dl (8.6-10.3); Creatinine Clr Calc Pharmacy 44.5 ml/min; Globulin 2.8 gm/dl (2.5-4.0); Magnesium 1.7 mg/dl (1.7-2.4); Phosphorus 3.2 mg/dl (2.5-4.9); Total Protein 6.3 gm/dl (6.0-8.3)
[2024-09-05] MEDS: FERROUS SULFATE 325 MG TAB PO SCH (08:02)
--- NOTE | 2024-09-05 10:03 | Hospitalist Progress Note ---
Date of Service September 05, 2024 Assessment & Plan (1) Complicated UTI (urinary tract infection): (2) E coli bacteremia: (3) Chest discomfort: (4) Hematuria: Plan 79 year old woman with PMHx significant for hypothyroidism, NIKKI, HFpEF, HTN, PE on Eliquis, irritable bowel syndrome, rectocele, urge incontinence, cystocele, prolapse of vaginal vault after hysterectomy, CKD stage IIIa, restless leg syndrome, iron deficiency anemia [baseline hemoglobin 10-11] who presented to [facility] ED with concern for chest discomfort and hematuria. E. coli bacteremia Complicated UTI Hematuria UA suggestive of infection Urine Cx grew E coli Blood Cx grew E coli in 2/2 bottles Currently on IV ceftriaxone Plan to change to po on admission to complete 14 day treatment Patient presented with blood in the urine CT abdomen pelvis unremarkable Urology recs noted Hematuria resolved Resume home eliquis Chest discomfort, rule out ACS Patient presents with chest discomfort associated with nausea relieved with oxygen use. Trop trend from 15.3-->17.5--->44.6--->91.9-->42 EKG without signs of ischemia Echo with EF 55 to 60%, right ventricular mild dilation, right ventricle motion normal and no significant valvular pathology Cardiology eval and recs noted Continue home bumex 2mg bid Continue reduced carvedilol 3.125mg BID If recurrent chest pain could consider trial of long-acting nitrate Chronic Anemia Iron Deficiency Anemia Hemoglobin chronically low patient with history of iron deficiency anemia Anemia panel noting persistent iron deficiency -s/p IV Venofer 200mg x1 on 09/04/24 -continue ferrous sulphate Thrombocytopenia Chronic per chart review Acute Kidney Injury Creatinine was slightly elevated at 1.2 Cr is 1.1 today BLE chronic wounds: Per patient reports, her BLE wounds have been closed but she is still being actively managed by wound care as an outpatient, she has extensive wrapping over BLE along with Unaboot's. Wound care was consulted for ongoing management. -Unna boots removed, not on formulary here Arterial dopplers obtained per wound care- Atherosclerosis without arterial occlusion/high grade stenosis Other chronic medical conditions: HTN, HFpEF, PE, irritable bowel syndrome---continue with home meds as and when able. Diet: HH DVT prophylaxis: Eliquis Conditional code: no intubation and ventilation, ok w/ other components of ACLS. Dispo: Awaiting PT/OT eval Called son and updated him I spent a total of 50 minutes coordinating, documenting and providing care for this patient excluding time spent in performance of separately billed services Admission and Anticipated Discharge Date Admission Date: September 02, 2024 Subjective Patient seen and examined Reports hematuria has resolved Reports chronic left knee pain Reports generalized weakness Denied other complaints on ROS Physical Exam Constitutional: + well hydrated and + obese; no acute di stress Eyes: PERRL, conjunctivae normal, anicteric sclerae ENMT: external ear and nose normal, oropharynx normal Respiratory: normal respiratory effort, lungs clear to auscultation Cardiovascular: Rate/Rhythm: regular rate and regular rhythm Gastrointestinal (Abdomen): normal bowel sounds, soft, nontender, no hepatosplenomegaly Musculoskeletal: +pedal edema Neurologic: PERRL, EOMI, accommodation nl, no face palsy, no dysarthria Psychiatric: A+Ox3, euthymic affect Results & Data Results & Data Vital Signs (Past 12 Hours) Vital Signs Temp Pulse Pulse Resp BP BP Pulse Ox 09/05/24 07:22 36.7 C 67 16 107/65 92 09/05/24 07:03 67 09/05/24 03:25 36.3 C L 68 18 111/67 94 09/04/24 22:36 36.8 C 68 17 138/77 95 O2 Del Method 09/05/24 07:22 Room Air 09/05/24 07:03 09/05/24 03:25 Room Air 09/04/24 22:36 Room Air Laboratory Results Abnormal lab results 09/05/24 Range/Units 05:26 WBC 3.68 L (4.8-10.8) K/ul RBC 3.44 L (4.20-5.40) M/uL Hgb 10.6 L (12.0-16.0) g/dl Hct 32.8 L (37.0-47.0) % RDW Std Deviation 47.8 H (36.4-46.3) fL Plt Count 124 L (130-400) K/uL Lymph # (Auto) 0.81 L (1.20-3.40) K/uL BUN 24 H (6-23) mg/dl BUN/Creatinine Ratio 21.8 H (10-20) Glucose 101 H (70-99(Fasting)) mg/dl Alkaline Phosphatase 118 H (34-104) U/L
[2024-09-05] MEDS: APIXABAN 5 MG TABLET PO SCH (10:44)
[2024-09-05] MEDS: LOPERAMIDE HCL 2 MG CAP PO PRN (15:58)
--- NOTE | 2024-09-05 22:36 | Electrocardiogram Report ---
Test Reason : Blood Pressure : */* mmHG Vent. Rate : 71 BPM Atrial Rate : 71 BPM P-R Int : 216 ms QRS Dur : 138 ms QT Int : 448 ms P-R-T Axes : 53 -17 -24 degrees QTcB Int : 486 ms Sinus rhythm with 1st degree A-V block Left ventricular hypertrophy with QRS widening Right bundle branch block Nonspecific T wave abnormality Abnormal ECG No previous ECGs available Confirmed by Claudio Perez ([id number]) on 09/05/2024 10:35:31 PM Referred By: REFERRED SELF Confirmed By: Claudio Perez
--- NOTE | 2024-09-05 22:58 | Electrocardiogram Report ---
Test Reason : Blood Pressure : */* mmHG Vent. Rate : 70 BPM Atrial Rate : 70 BPM P-R Int : 204 ms QRS Dur : 148 ms QT Int : 482 ms P-R-T Axes : 70 -18 -18 degrees QTcB Int : 520 ms Poor data quality, interpretation may be adversely affected Normal sinus rhythm Right bundle branch block Abnormal ECG When compared with ECG of 03-Sep-2024 05:37, Nonspecific T wave abnormality, worse in Anterior leads Confirmed by Claudio Perez ([id number]) on 09/05/2024 10:58:31 PM Referred By: REFERRED SELF Confirmed By: Claudio Perez
--- NOTE | 2024-09-05 22:58 | Electrocardiogram Report ---
Test Reason : Blood Pressure : */* mmHG Vent. Rate : 68 BPM Atrial Rate : 68 BPM P-R Int : 208 ms QRS Dur : 140 ms QT Int : 460 ms P-R-T Axes : 56 -14 -18 degrees QTcB Int : 489 ms Normal sinus rhythm Right bundle branch block Abnormal ECG When compared with ECG of 09-Jan-2024 20:39, Criteria for Anterior infarct are no longer Present T wave inversion no longer evident in Anterior leads Confirmed by Claudio Perez ([id number]) on 09/05/2024 10:58:13 PM Referred By: REFERRED SELF Confirmed By: Claudio Perez
[2024-09-05] MEDS: busPIRone 15 MG TAB PO PRN (23:07)
[2024-09-06 07:08] LABS: Eosinophils # (auto) 0.09 K/uL (0.00-0.50); Eosinophils % (auto) 2.8 %; Hematocrit (blood only) 32.5 % (37.0-47.0); Hemoglobin 10.7 g/dl (12.0-16.0); Immature Granulocytes # (auto) 0.01 K/uL (0.01-0.20); Immature Granulocytes % (auto) 0.3 %; Lymphocytes # (auto) 0.75 K/uL (1.20-3.40); Mean Corpuscular Hemoglobin 30.5 pg (25.0-34.0); Mean Corpuscular Hgb Conc 32.9 g/dL (32.0-36.0); Mean Corpuscular Volume 92.6 fL (80.0-100.0); Mean Platelet Volume 11.6 fL (9.4-12.4); Monocytes # (auto) 0.51 K/uL (0.11-0.59); Monocytes % (auto) 15.6 %; Neutrophils % (auto) 58.3 %; Platelet Count 144 K/uL (130-400); RDW Coefficient of Variation 13.2 % (11.5-14.5); RDW Standard Deviation 45.1 fL (36.4-46.3); Red Blood Count 3.51 M/uL (4.20-5.40); White Blood Count 3.26 K/ul (4.8-10.8)
[2024-09-06 07:27] LABS: Albumin Globulin Ratio 1.3 (0.9-2); Albumin Level 3.5 gm/dl (3.4-5.0); BUN Creatinine Ratio 21.3 (10-20); Bilirubin,Total 0.3 mg/dl (0.2-1.0); Calcium 9.2 mg/dl (8.6-10.3); Creatinine Clr Calc Pharmacy 53.6 ml/min; Globulin 2.7 gm/dl (2.5-4.0); Magnesium 1.6 mg/dl (1.7-2.4); Potassium 3.9 mmol/L (3.5-5.1); Total Protein 6.2 gm/dl (6.0-8.3)
[2024-09-06] MEDS: MAGNESIUM OXIDE 400 MG TAB PO ONE (08:27)
[2024-09-06] MEDS ORDERED: LOPERAMIDE HCL 2 MG CAP PO PRN (09:23)
--- NOTE | 2024-09-06 10:21 | Discharge Summary ---
Date of Service September 06, 2024 Admission HPI Per Admitting Provider 79-year-old lady with PMH of hypothyroidism, NIKKI, HFpEF, HTN, PE on Eliquis, irritable bowel syndrome, rectocele, urge incontinence, cystocele, prolapse of vaginal vault after hysterectomy, CKD stage IIIa, restless leg syndrome, iron deficiency anemia [baseline hemoglobin 10-11] presented to the ED with complaint of chest discomfort and hematuria. Patient reports she has been having " a lot of blood" in the urine since yesterday, and it did not stop today. Patient denies abdominal pain or pain / burning while passing urine. Patient reports while she was trying to get up from the bathroom today, she had chest discomfort which was relieved by oxygen use. Patient does use oxygen on and off especially with activity at home. Patient reports brief nausea associated with chest discomfort, no radiation, no diaphoresis. Patient denies sore throat, reports temperature of 101F in the morning, last bowel movement on /no blood in the stool, denies nausea/vomiting/dizziness/cough. Patient does report chronic headache. Patient reports he has chronic BLE wounds which has been closed already, and they does not appear infected. Both lower extremity were extensively wrapped and had uniboots on. Patient denies current use of tobacco/alcohol/recreational drugs. Medications reviewed with the patient at bedside. Plan of care discussed with the patient in detail, she voiced understanding. Conditional code: Patient would not want intubation and ventilation, okay with rest of the components of ACLS. Admission Exam Per Admitting Provider GENERAL: Alert and oriented x3. NAD, on RA. HEENT: No pallor, no icterus. Pupils equal, round and reactive to light. Oral mucosa moist. NECK: No JVD, no neck masses. HEART: S1 and S2 heard. Regular rate and rhythm. Tachy in 100s. No murmur, no gallop. RESPIRATORY SYSTEM: Normal AP diameter. No accessory muscle use. No wheezing, no crackles. ABDOMEN: Soft, bowel sounds present, nontender, no distention. CENTRAL NERVOUS SYSTEM: No facial droop. Speech is clear. Obeys simple commands. Moves extremities. EXTREMITIES: BLE extensive wrapping for chronic wounds w/ uni boots on, didn't unwrap at request of patient. No tenderness on exam. Principal Diagnosis Complicated urinary tract infection E coli bacteremia Discharge Exam Constitutional + well hydrated and + obese; no acute distress Eyes PERRL, conjunctivae normal, anicteric sclerae ENMT external ear and nose normal, oropharynx normal Respiratory normal respiratory effort, lungs clear to auscultation Cardiovascular Rate/Rhythm: regular rate and regular rhythm Gastrointestinal (Abdomen) normal bowel sounds, soft, nontender, no hepatosplenomegaly Musculoskeletal +pedal edema. Wrapped in compressive dressing Neurologic PERRL, EOMI, accommodation nl, no face palsy, no dysarthria Psychiatric A+Ox3, euthymic affect Discharge Data Allergies Allergy/AdvReac Type Severity Reaction Status Date / Time No Known Allergies Allergy Verified 09/03/24 08:01 Consultations 09/02/24 12:14 ED Decision to Admit Stat 09/02/24 12:42 Consult Cardiology Routine Consult Urology Routine Ordered Studies 09/02/24 10:12 CT angio chest PE protocol Stat 09/02/24 12:42 CT Abd and Pelvis [CT abd pelvis wo con] Routine 09/04/24 16:20 US arterial duplex LE BI Routine Hospital Course (1) Complicated UTI (urinary tract infection): (2) E coli bacteremia: (3) Chest discomfort: (4) Hematuria: Plan 79 year old woman with PMHx significant for hypothyroidism, NIKKI, HFpEF, HTN, PE on Eliquis, irritable bowel syndrome, rectocele, urge incontinence, cystocele, prolapse of vaginal vault after hysterectomy, CKD stage IIIa, restless leg syndrome, iron deficiency anemia [baseline hemoglobin 10-11] who presented to the ED with concern for chest discomfort and hematuria. E. coli bacteremia Complicated UTI Hematuria UA suggestive of infection Urine Cx grew E coli Blood Cx grew E coli in 2/2 bottles Was treated with IV ceftriaxone while inpatient and switched to po cefdinir to complete 14 day treatment Patient presented with blood in the urine CT abdomen pelvis unremarkable Urology evaluated Hematuria resolved and home eliquis which was initially held was resumed without incident Chest discomfort, rule out ACS Patient presents with chest discomfort associated with nausea relieved with oxygen use. Trop trend from 15.3-->17.5--->44.6--->91.9-->42 EKG without signs of ischemia Echo with EF 55 to 60%, right ventricular mild dilation, right ventricle motion normal and no significant valvular pathology Cardiology evaluated while inpatient Continue home bumex 2mg bid Home carvedilol was reduced to 3.125mg BID Chronic Anemia Iron Deficiency Anemia Hemoglobin chronically low. Hb is 10.7 today patient with history of iron deficiency anemia Anemia panel noted persistent iron deficiency -s/p IV Venofer 200mg x1 on 09/04/24 -continue ferrous sulphate. Patient reported she still has this at home PCP to monitor Thrombocytopenia Chronic per chart review Plt count improved today to 144 Acute Kidney Injury Creatinine was slightly elevated at 1.2 Cr is 0.89 today BLE chronic wounds: Per patient reports, her BLE wounds have been closed but she is still being actively managed by wound care as an outpatient, she has extensive wrapping over BLE along with Unaboot's. Wound care was consulted for ongoing management. 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 Total Time Total Time Spent Total Time Spent (In Minutes): 35 Total Time Includes: Examination of the Patient, Discharge Planning and Medication Reconciliation Discharge Plan Discharge Items Patient Disposition: Home - Home Health Services Reason For Visit: CHEST DISCOMFORT, HEMATURIA Discharge Diagnosis: Complicated urinary tract infection E coli bacteremia Activity: Resume your previous activity Non-emergency contact: Primary Care Provider Call non-emergency contact if: you have any medication questions and your symptoms worsen Follow-up/Referrals: Faith Junior CRNP [Nurse Practitioner] - (The Urology office will contact you for a follow up appointment.) Lily Parham PA-C [Primary Care Provider] - (Date & Time 09/11/2024 3:00 PM Provider Lily Parham PA-C [facility] ) Diet: Heart Healthy Addtl Attending Provider Instructions: Mrs Garcia You were managed for the above listed diagnoses. You are being discharged on antibiotics for next 9 days. Your carvedilol was changed to a lower dose of 3.125mg twice a day. Please ensure follow up with your Primary Doctor and wound clinic. It was a pleasure taking care of you Pending Studies at Discharge: No Stand-Alone Forms: My [facility] Bringrs, Smoking Cessation Medications and DC Order Prescriptions: New carvedilol 3.125 mg Tablet 3.125 mg PO BID 30 Days Qty: 60 0RF cefdinir 300 mg capsule 300 mg PO BID 9 Days Qty: 18 0RF Continued conjugated estrogens 0.625 mg/gram cream 0.625 mg vaginal DAILY Qty: 30 3RF Rx Instructions: apply daily for 2 weeks, then apply twice weekly. clotrimazole 1 % cream 1 applic VAGINAL HS Saccharomyces boulardii 250 mg Capsule 250 mg PO BID Qty: 20 0RF gabapentin 400 mg capsule 400 mg PO TID cyanocobalamin (vitamin B-12) [Vitamin B-12] 1,000 mcg Tablet 1,000 mcg PO DAILY acetaminophen 500 mg Tablet 500 mg PO Q6H PRN (Reason: Pain) levothyroxine [Synthroid] 125 mcg tablet 125 mcg PO DAILYBB bumetanide 1 mg tablet 2 mg PO BID ergocalciferol (vitamin D2) 1,250 mcg (50,000 unit) capsule 50,000 unit PO WK Rx Instructions: Tuesday colestipol 1 gram tablet 2 g PO BID Rx Instructions: Can take additional 1g if needed buspirone 15 mg tablet 15 mg PO TID PRN (Reason: Anxiety) Eliquis 5 mg tablet 5 mg PO BID potassium chloride [K-Tab] 20 mEq tablet extended release 20 meq PO BID Probiotic Pearls Women's 1 billion cell Capsule,Delayed Release(Dr/Ec) 2 cap PO DAILY pramipexole 0.25 mg tablet See Rx Instructions .ROUTE .COMPLEX Rx Instructions: Take 0.5mg by mouth in the afternoon and 0.5-0.75mg at bedtime depending on how bad legs hurt ferrous sulfate [iron] 325 mg (65 mg iron) tablet 325 mg PO BID Discontinued carvedilol 12.5 mg tablet 12.5 mg PO BID Discharge Orders: Discharge Order (Routine); Ordered 09/06/24 Ordered By: Vanessa Baldwin Admission Data Admit Date/Time: 09/02/24 12:46 Attending Provider: Vanessa Baldwin I. Admit Provider: Africa Miller Primary Care Provider: Lily Parham Other Providers: Michael Javier; Africa Miller; Claudio Perez; Jasvir Monk; [facility] Fax Other Interventions: Discharge Summary Assessment (RN) Last Done: 09/06/24 11:54
[2024-09-06 11:39] VITALS: BP 126/76; PULSE 69; RESP 20; TEMP 98.6; O2SAT 95
== END 2024-09-06 14:43 | disposition home health service (06) | DRG 872 ==
LOC: EDBD → ED 07:41 → SUATTDRO 12:46 → 2N 14:40 → MERGE 14:46 → SUATTDRO 14:46